=== PATIENT | female | born 1940 | race Caucasian/White ===

== ENCOUNTER → 2017-03-05 | Outpatient (CLI) | payer OTHER ==
--- NOTE | 2017-03-05 12:45 | MAMMOGRAPHY REPORT ---
BILATERAL DIGITAL SCREENING MAMMOGRAM WITH CAD: 03/05/2017 CLINICAL HISTORY: Routine screening. Patient has no complaints. TECHNIQUE: Bilateral CC and MLO views were obtained. Current study was also evaluated with a Compute r Aided Detection (CAD) system. COMPARISON: Comparison is made to exams dated: 03/01/2016 mammogram, 02/27/2015 mammogram, 02/24/2014 m ammogram, 02/22/2013 mammogram, 02/21/2012 mammogram, and 02/19/2011 mammogram - [facility] enter. BREAST COMPOSITION: The tissue of both breasts is extremely dense, which lowers the sensitivity of m ammography. FINDINGS: There are a few benign coarse calcifications in the anterior aspect of the breasts. No ariela picious mass, architectural distortion or cluster of suspicious microcalcifications is seen. IMPRESSION: ACR BI-RADS CATEGORY 1: NEGATIVE There is no mammographic evidence of malignancy. A 1 year screening mammogram is recommended. The pa tient will receive written notification of the results. Approximately 10% of breast cancers are not detected with mammography. A negative mammographic report should not delay biopsy if a clinically suggestive mass is present. Violeta Payne M.D. ay/:03/05/2017 08:59:26 Hadoop Java Developer: Lindsey CARD(Roxann)(Jett)([place]), [facility] letter sent: Normal 1/2 BI-RADS Code: ACR BI-RADS Category 1: Negative
== END | disposition home or self-care (01) ==
LOC: C.MAMM 08:34
PROVIDERS: ATTEND Family Medicine
DX: Z12.31 Encounter for screening mammogram for malignant neoplasm of breast (principal)

== ENCOUNTER → 2017-06-24 | Day surgery (SDC) | payer OTHER ==
[2017-06-24] VITALS (21 sets, daily range): BP systolic 92–157; BP diastolic 37–77; PULSE 72–105; TEMP 36.2–37; O2SAT 89–100; Ht 162.6 cm; Wt 53.5 kg
[~2017-06-24] VITALS: Ht 162.6 cm; Wt 53.5 kg
[~2017-06-24] MED LIST: ASPI81TA28 PO; CHOL1000 PO; ESCI1TAB6 PO; FENTANYL CITRATE INJ 50 MCG/1 ML 2 ML VIAL IV ONE; GLIM1TAB2 PO; HYG/25 PO; LISI40TA PO; METF-384 PO; MIDAZOLAM HCL 5 MG/ML 1 ML VIAL IV ONE; MULT-513 PO; NURSING VERBAL MED ORDER ONE; SIMV40TA2 PO; SODIUM CHLORIDE 0.9% 500ML 500 ML IV ONE
--- NOTE | 2017-06-24 09:24 | History and Physical ---
History & Physical Date of Service Jun 24, 2017. History & Physical CC: Bronchoscopic evaluation because of the hemoptysis longstanding smoking history and right middle lobe collapse. 77y/o female who has been coughing up mucus with streaks of blood. She has been smoking since 20 YO. Smokes 1 PPD. Denines SOB and dsypnea and reports she stays active. She is taking medications as listed./ap 77-year-old white female was accompanied to the office by her sister who is retired from working at the [employer] [place] in [place] has 3 sisters 1 who lives in [place]. The other lives in [place] any other in [place]. Both parents are with the father having of a myocardial infarction in the mother of complications of Alzheimer and pneumonia. Patient has smoked a pack of cigarettes a day since age 20 and continues to smoke. She is also diabetic. She has had a cough the past 2 weeks and has noted blood streaking hemoptysis. She denies pleuritic or atypical chest pain or previous bouts of hemoptysis. She denies recent fevers chills or sweats. She is attentive to her diabetes and checks her glucose 3 times a day. He has not undergone pulmonary function testing or undergone stress testing recently. She is pretty active in the summer and push Mohs an ache her of her lab and but states walking up his heel near the house is problematic for her or carrying laundry up steps. She has been on lisinopril but does not believe this is giving her a cough although she is aware it can. Her was a smoker as well. Her sleeping is poor. She denies snoring. Weight has remained constant. She had history of carpal tunnel syndrome on the left wrist and apparently has not kept up with her in ocular lesions. Primary care physician is Dr. Susana Laughlin and also sees Rebecca Chandler physician human resources office assistant. Chest x-ray on 05/21/2017 shows collapse/atelectasis of the right middle lobe without a discernible mass visible. There is also tenting of the right hemidiaphragm.+ Active Problems 1. Collapse of right lung 2. DM type 2 causing renal disease 3. DM type 2, goal HbA1c < 8% 4. Dyslipidemia, goal LDL below 100 5. HTN, goal below 140/90 Current Meds 1. Aspirin EC Lo-Dose 81 MG TBEC; TAKE 1 TABLET DAILY 2. Chlorthalidone 25 MG Oral Tablet; TAKE 1 TABLET DAILY 3. DiazePAM 5 MG Oral Tablet; TAKE 1/2 TABLET DAILY 4. Escitalopram Oxalate 5 MG Oral Tablet; TAKE 1 TABLET DAILY 5. Glimepiride 1 MG Oral Tablet; TAKE 1 TABLET DAILY 6. Lisinopril 40 MG Oral Tablet; TAKE 1 TABLET DAILY 7. MetFORMIN HCl - 1000 MG Oral Tablet; TAKE 1 TABLET TWICE DAILY 8. Multi-Vitamin TABS; TAKE 1 TABLET DAILY 9. Simvastatin 40 MG Oral Tablet; TAKE 1 TABLET AT BEDTIME Allergies 1. No Known Drug Allergies Vital Signs Blood Pressure: 134 / 82, LUE, Sitting O2 Saturation: 98, RA Height: 5 ft 4 in Weight: 117 lb 8 oz BMI Calculated: 20.17 BSA Calculated: 1.56 Temperature: 97.8 F Heart Rate: 57 Respiration: 16 Constitutional General appearance: No acute distress, well appearing and well nourished. Eyes Conjunctiva and lids: No swelling, erythema or discharge. Pupils and irises: Equal, round and reactive to light. Ears, Nose, Mouth, and Throat External inspection of ears and nose: Normal. Otoscopic examination: Tympanic membranes translucent with normal light reflex. Canals patent without erythema. Oropharynx: Normal with no erythema, edema, exudate or lesions. Pulmonary Respiratory effort: No increased work of breathing or signs of respiratory distress. Auscultation of lungs: Abnormal. ~Distant to P and a with scattered rhonchi right posterior mid axillary region. Cardiovascular Palpation of heart: Normal PMI, no thrills. Auscultation of heart: Normal rate and rhythm, normal S1 and S2, without murmurs. Examination of extremities for edema and/or varicosities: Normal. Abdomen Abdomen: Non-tender, no masses. Liver and spleen: No hepatomegaly or splenomegaly. Lymphatic Palpation of lymph nodes in neck: No lymphadenopathy. Musculoskeletal Gait and station: Normal. Digits and nails: Normal without clubbing or cyanosis. Inspection/palpation of joints, bones, and muscles: Normal. Skin Skin and subcutaneous tissue: Normal without rashes or lesions. Neurologic Cranial nerves: Cranial nerves 2-12 intact. Reflexes: 2+ and symmetric. Sensation: No sensory loss. Psychiatric Orientation to person, place, and time: Normal. Mood and affect: Normal.
--- NOTE | 2017-06-24 09:25 | Procedure Note ---
Pre-Mod Sedation Assessment General Date of Moderate Sedation: Jun 24, 2017. Vital Signs: Vital Signs Past 12 Hours Date Time Temp Pulse Resp B/P (MAP) Pulse Ox O2 Delivery O2 Flow Rate FiO2 06/24/17 08:43 36.6 72 18 114/52 (72) 97 Room Air Review Cardiovascular: regular rate, rhythm, no edema, no gallop, no JVD, no murmur Abdomen: normal bowel sounds, non tender, soft, no organomegaly, no pulsatile mass Lungs: chest non-tender, + rhonchi (minimal at the bases bilaterally) Pre-Sedation Airway Assessment Oral Cavity: Capped Teeth Able to Visualize Vocal Cords: Yes Short Thick Neck: No Hx of Sleep Apnea: No Smoking Status: Current Every Day Smoker Mallampati Classification: Class II ASA Classification: Class III Procedure Planning Contraindications-for Mod Sed: None Yes Notes The planned sedation has been discussed with the patient and consent obtained. I have identified the patient, determined the appropriateness of sedation and have assessed the patient immediately prior to the procedure. All medicine(s) and interventions are by my order.
--- NOTE | 2017-06-24 10:58 | Procedure Note ---
Post-Moderate Sedation Plan General Date of Moderate Sedation Jun 24, 2017. Vital Signs: Vital Signs Past 12 Hours Date Time Temp Pulse Resp B/P (MAP) Pulse Ox O2 Delivery O2 Flow Rate FiO2 06/24/17 09:52 93 Room Air 4.0 06/24/17 09:45 36.6 72 18 114/52 97 Room Air 06/24/17 08:43 36.6 72 18 114/52 (72) 97 Room Air Review - Discharge Plan Post Moderate Sedation Plan: On clinical assessment, the patient appears to have tolerated the conscious sedation without complications. Patient is recovering as anticipated. Patient will continue to be monitored by nursing and may be discharged when conscious sedation discharge criteria are met.
--- NOTE | 2017-06-24 11:00 | Bronchoscopy Procedure Note ---
Bronchoscopy Procedure Note Procedure: Bronchoscopy, conscious sedation, right middle lobe lavage Consent: Obtained through the patient placed into the chart Pre-procedural diagnosis: Hemoptysis Post-procedural diagnosis: Hemoptysis with bronchiectasis of the right middle lobe Start time: 1020 End time: 1040 Total time: 20 minutes Analgesia: 2% liquid lidocaine: Via nebulizer 4% gel lidocaine: Via right naris 2% liquid lidocaine: Via bronchoscopy Sedation: Versed IV: 4 mg Fentanyl IV: 50 g Procedure: [employer] video bronchoscope was used for this procedure and passed down through the right naris Right naris/posterior naris/posterior oropharynx: Anatomically within normal limits Glottis: Anatomically within normal limits Vocal cords: Proper abduction and abduction, anatomically within normal limits Subglottis/trachea/Olya: Anatomically within normal limits Right bronchial tree: Right mainstem bronchus: Anatomically within normal limits Right upper lobe: Anatomically within normal limits Bronchus intermedius: Anatomically within normal limits Right middle lobe: Blood pooling at the orifice to the right middle lobe, after blood removed notable bronchiectasis well visualized portions of the right middle lobe Right lower lobe: Anatomically within normal limits Findings: No significant findings noted Left bronchial tree: Left mainstem bronchus: Anatomically within normal limits Left upper lobe: Anatomically within normal limits Lingula: Anatomically within normal limits Left lower lobe: Anatomically within normal limits Findings: No significant findings noted Bronchial alveolar lavage: Right middle lobe 2 EBL: 2 cc Complications: None Follow-up: ASU
--- NOTE | 2017-06-24 11:06 | Discharge Instructions ---
Discharge Instructions Date of Service Jun 24, 2017. Admission Reason for Admission: Hemoptysis Discharge Discharge Diagnosis / Problem: hemoptysis, atelectasis, right middle lobe bronchiectasis Discharge Goals Goal(s): Diagnostic testing Activity Recommendations Activity Limitations: resume your previous activity . Instructions / Follow-Up Instructions / Follow-Up [facility] pulmonary division Current Hospital Diet Patient's current hospital diet: Discharge Diet Recommended Diet: Regular Diet Procedures Procedures Performed: Bronchoscopy, conscious sedation, bronchial lavage Pending Studies Studies pending at discharge: no Medical Emergencies . Who to Call and When: Medical Emergencies: If at any time you feel your situation is an emergency, please call 911 immediately. . Non-Emergent Contact Non-Emergency issues call your: Clinical Massage Therapist . . "Provider Documentation" section prepared by Abram Villa. . VTE Core Measure Inpt VTE Proph given/why not?: Treatment not indicated
== END | disposition home or self-care (01) ==
LOC: C.ACU 08:14
PROVIDERS: ATTEND Internal Medicine Critical Care Medicine
DX: R04.2 Hemoptysis (principal); J47.9 Bronchiectasis, uncomplicated; I13.0 Hypertensive heart and chronic kidney disease with heart failure and stage 1 through stage 4 chronic kidney disease, or unspecified chronic kidney disease; N18.9 Chronic kidney disease, unspecified; Z79.899 Other long term (current) drug therapy; E78.5 Hyperlipidemia, unspecified; F17.210 Nicotine dependence, cigarettes, uncomplicated

== ENCOUNTER 2017-07-03 22:27 | Inpatient (IN) | payer OTHER ==
[~2017-07-03] VITALS: Ht 160 cm; Wt 56.1 kg
[~2017-07-03 22:27] MED LIST changes: -FENTANYL CITRATE INJ 50 MCG/1 ML 2 ML VIAL IV ONE; -MIDAZOLAM HCL 5 MG/ML 1 ML VIAL IV ONE; -NURSING VERBAL MED ORDER ONE; -SODIUM CHLORIDE 0.9% 500ML 500 ML IV ONE
[2017-07-03] MEDS ORDERED: LOSA1TAB38 PO (23:05)
[2017-07-03] MEDS ORDERED: ASPI1TAB48 PO (23:07)
[2017-07-03 23:40] LABS: BASO % 0.3 %; BASO ABS # 0.04 K/uL (0-0.2); COMPLETE YES; HEMATOCRIT 36.7 % (37-47); IG% 0.3 %; LYMPH % 13.9 %; LYMPH ABS # 1.79 K/uL (1.2-3.4); MEAN CELL VOLUME 93.9 fL (80-100); MEAN CORPUSCULAR HEMOGLOBIN 31.7 pg (25-34); MEAN CORPUSCULAR HGB CONC 33.8 g/dl (32-36); MEAN PLATELET VOLUME 9.1 fL (7.4-10.4); MONO % 6.7 %; NEUT % 75.8 %; PLATELET COUNT 397 K/uL (130-400); RED BLOOD COUNT 3.91 M/uL (4.2-5.4)
[2017-07-03 23:51] LABS: INR 0.9 (0.9-1.1); PROTHROMBIN TIME (PATIENT) 9.5 SECONDS (9.0-12.0)
[2017-07-03 23:59] LABS: ALT/SGPT 21 U/L (12-78); BLOOD UREA NITROGEN 42 mg/dl (7-18); BUN/CREATININE RATIO 26.9 (10-20); CALCIUM 9.3 mg/dl (8.5-10.1); CARBON DIOXIDE 29 mmol/L (21-32); CHLORIDE 99 mmol/L (98-107); CREATININE 1.57 mg/dl (0.60-1.20); GLUCOSE 121 mg/dl (70-99); POTASSIUM 3.9 mmol/L (3.5-5.1); SODIUM 135 mmol/L (136-145)
[2017-07-04 00:04] LABS: ALB/GLOB RATIO 0.8 (0.9-2); ALKALINE PHOSPHATASE 114 U/L (45-117); AST/SGOT 23 U/L (15-37)
[2017-07-04] MEDS ORDERED: OPTIRAY 320 IV PRN (00:30)
[2017-07-04 01:26] LABS: URINE APPEARANCE CLEAR (CLEAR); URINE BILIRUBIN NEG (NEG); URINE COLOR YELLOW; URINE NITRITE NEG (NEG); URINE SPECIFIC GRAVITY 1.019 (1.000-1.030); UROBILINOGEN NEG (NEG); ZZUR CULT IF INDIC CLEAN CATCH NO
[2017-07-04 01:57] LABS: MANUAL MICROSCOPIC REQUIRED? NO; REVIEW REQ? NO
[2017-07-04] MEDS ORDERED: DOXYCYCLINE HYCLATE 100 MG CAP PO STA (02:23)
--- NOTE | 2017-07-04 02:34 | EMERGENCY ROOM VISIT NOTE ---
History Report prepared by Suleiman: Phyllis Macias Under the Supervision of: Dr. Becky Morgan D.O. First contact with patient: 22:53 Chief Complaint: GI ASSESSMENT Stated Complaint: SPITTING UP BLOOD Nursing Triage Summary: Spitting up blood with coughing. History of Present Illness The patient is a 77 year old female who presents to the Emergency Room with complaints of persistent hemoptysis starting 3 weeks ago. She has been coughing up little streaks of blood in her sputum. Tonight around 2129 she coughed up a large clot which concerned her. She has coughed up blood 3 more times since. The patient had a bronchoscopy last week which was mostly normal. She had a spot of blood which was cleaned. She had washings which were negative for cancer. She has an appointment in 5 days with cardiothoracic surgery where they look and will operate if necessary. She does not taste any blood. She notes that she has had foot and ankle swelling for 2 weeks which is worse at night. She has never had swelling in her lower extremities before. She denies any leg injury. She denies any SOB, fever, chills, nausea, vomiting, epistaxis, hematuria, hematochezia, or melena. She is on baby aspirin every other day. She is not on any blood thinners. She has a history of arthritis, diabetes, hypertension, and high cholesterol. She denies any history of heart problems or platelet problems. She is not on any steroids or other immunosuppressive agents. Source of History: patient Onset: 3 weeks ago Position: other (global) Quality: other (hemoptysis) Timing: other (persistent) Associated Symptoms: No fevers, No chills, No SOB, No nausea, No vomiting, No melena, No hematochezia, No urinary symptoms Note: Pt reports lower extremity swelling. Review of Systems See HPI for pertinent positives & negatives. A total of 10 systems reviewed and were otherwise negative. Past Medical & Surgical Medical Problems: (1) Arthritis (2) Diabetes (3) Hemoptysis (4) High cholesterol (5) Hypertension Family History No pertinent family history stated. Social History Smoking Status: Never Smoker Marital Status: Occupation Status: retired Current/Historical Medications Scheduled Aspirin (Aspirin Low Dose), 81 MG PO DAILY Chlorthalidone (Hygroton), 25 MG PO QAM Cholecalciferol (Vitamin D3), 1 TAB PO DAILY Escitalopram Oxalate (Lexapro), 5 MG PO DAILY Glimepiride (Glimepiride), 0.5 MG PO DAILY Losartan Potassium (Cozaar), 100 MG PO DAILY Metformin Hcl (Glucophage), 1,000 MG PO BID Multivitamins/Minerals (Mvi With Minerals), 1 TAB PO DAILY Simvastatin (Zocor), 40 MG PO QPM Allergies Coded Allergies: No Known Allergies (Unverified , 07/03/17) Physical Exam Vital Signs Date Time Temp Pulse Resp B/P (MAP) Pulse Ox O2 Delivery O2 Flow Rate FiO2 07/04/17 00:44 82 18 163/71 94 Room Air 07/04/17 00:23 75 16 142/76 07/03/17 23:50 75 07/03/17 22:33 36.7 94 18 140/73 95 Room Air Physical Exam GENERAL: alert, well appearing, well nourished, no distress, non-toxic EYE EXAM: normal conjunctiva, PERRL and EOM's grossly intact OROPHARYNX: no exudate, no erythema, lips, buccal mucosa, and tongue normal and mucous membranes are moist NECK: supple, no nuchal rigidity, no adenopathy, non-tender LUNGS: Diminished breath sounds. Normal chest wall mechanics HEART: no murmurs, S1 normal and S2 normal ABDOMEN: abdomen soft, non-tender, normo-active bowel sounds, no masses, no rebound or guarding. BACK: Back is symmetrical on inspection and there is no deformity, no midline tenderness, no CVA tenderness. SKIN: no rashes and no bruising UPPER EXTREMITIES: upper extremities are grossly normal. LOWER EXTREMITIES: No pitting edema. NEURO EXAM: Normal sensorium, cranial nerves II-XII grossly intact, normal speech, no gross weakness of arms, no gross weakness of legs. Medical Decision & Procedures ER Provider Diagnostic Interpretation: Xray results have been interpreted by me. Radiology results have been interpreted by the [facility] radiologist and reviewed by me. Chest X-ray: No cardiomegaly. Hazy opacification of the right middle lobe. Slightly increased interstitial markings at the left base. No melly pulmonary edema. No wide mediastinum. CTA Chest: Comparison is made to prior CT chest on 06/10/2017. No pulmonary embolus identified. Stable hypodense mass in the right hilum with mild narrowing of the pulmonary arterial branches as they traverse the mass. No occlusion. The mass is also again causing obstruction of the airways with complete collapse of the right middle lobe. Superimposed infection cannot be excluded. Moderate centrilobular emphysematous changes again noted. Nonspecific tiny nodules, most prominent in the upper lobes. Metastatic nodules cannot be excluded. Nonspecific mildly prominent mediastinal lymph nodes. Stable small left hepatic cyst. Stable nonspecific thickening of the adrenal glands. Laboratory Results Test 07/03/17 23:22 07/04/17 01:10 Prothrombin Time 9.5 SECONDS (9.0-12.0) Prothromb Time International Ratio 0.9 (0.9-1.1) Est Creatinine Clear Calc Drug Dose 25.6 ml/min Total Bilirubin 0.2 mg/dl (0.2-1) Aspartate Amino Transf (AST/SGOT) 23 U/L (15-37) Alanine Aminotransferase (ALT/SGPT) 21 U/L (12-78) Alkaline Phosphatase 114 U/L (45-117) Troponin I < 0.015 ng/ml (0-0.045) Pro-B-Type Natriuretic Peptide 182 pg/ml (0-900) Total Protein 7.3 gm/dl (6.4-8.2) Albumin 3.3 gm/dl (3.4-5.0) Globulin 4.0 gm/dl (2.5-4.0) Albumin/Globulin Ratio 0.8 (0.9-2) Urine Color YELLOW Urine Appearance CLEAR (CLEAR) Urine pH 7.0 (4.5-7.5) Urine Specific [place] 1.019 (1.000-1.030) Urine Protein NEG (NEG) Urine Glucose (UA) NEG (NEG) Urine Ketones NEG (NEG) Urine Occult Blood NEG (NEG) Urine Nitrite NEG (NEG) Urine Bilirubin NEG (NEG) Urine Urobilinogen NEG (NEG) Urine Leukocyte Esterase NEG (NEG) Laboratory results per my review. Medications Administered Medications (Trade) Dose Ordered Sig/Bushra Route Start Time Stop Time Status Last Admin Dose Admin Doxycycline Hyclate (Vibramycin Cap) 100 mg NOW STAT PO 07/04/17 02:23 07/04/17 02:35 DC 07/04/17 02:57 100 MG ECG Indication: other Rate (beats per minute): 78 Rhythm: sinus rhythm Findings: no acute ischemic change, no ectopy, other (normal axis, normal intervals) ED Course 2259: The patient was evaluated in room B4B. A complete history and physical exam was performed. 0018: I reevaluated the patient. She had another episode of hemoptysis which was less than before. I updated her on the results. 0139: Upon reevaluation, the patient is stable. I discussed the findings and the treatment plan with the patient. She expresses agreement and understanding. She will be evaluated for further management. 0155: I reviewed the patient's case with Taya Villagomez hospitalist. He will evaluate the patient for further management. Medical Decision Differential diagnosis: PE, post procedure complication, pneumonia, foreign body , trauma. Patient well-appearing here despite worsening hemoptysis. Vital signs stable. Patient with mild leukocytosis, and new acute kidney injury noted. Unclear etiology of renal dysfunction. Leukocytosis unclear if related to evolving infection or stress reaction recent procedure. Chest x-ray again confirms right middle lobe atelectasis and masslike lesions noted. No other evidence of PE, pneumonia, tamponade, or additional vascular pathology. Patient here for continued monitoring of H&H and leukocytosis as well as continued productive cough with hemoptysis. Patient with a total 5 episodes between home and the emergency room of melly hemoptysis which is new compared to her prior "streaking " the hemoptysis that she had started an outpatient evaluation for. Case discussed with hospitalist for additional evaluation and pulmonary consult. Medication Reconcilliation Current Medication List: was personally reviewed by me Blood Pressure Screening Patient's blood pressure: Elevated blood pressure Blood pressure disposition: Elevated BP felt to be situational Consults Time Called: 144 Consulting Physician: Taya Villagomez hospitalist Returned Call: [phone] I reviewed the patient's case with him. He will evaluate the patient for further management. Impression Primary Impression: Hemoptysis Additional Impressions: Lung mass SASHA (acute kidney injury) Scribe Attestation The scribe's documentation has been prepared under my direction and personally reviewed by me in its entirety. I confirm that the note above accurately reflects all work, treatment, procedures, and medical decision making performed by me. Departure Information Dispostion Being Evaluated By Hospitalist Referrals Susana Laughlin D.O. (PCP) Patient Instructions My [facility] Problem Qualifiers
[2017-07-04] MEDS ORDERED: GLUCAGON FOR INJ 1 MG VIAL SQ PRN (03:00)
[2017-07-04] MEDS ORDERED: DEXTROSE 50% 50 ML SYR IV PRN (03:00)
[2017-07-04] MEDS ORDERED: GLUCOSE 10 TABS/TUBE PO PRN (03:00)
[2017-07-04] MEDS ORDERED: GLUCOSE 40% GEL 15 GM TUBE PO PRN (03:00)
--- NOTE | 2017-07-04 03:42 | History and Physical ---
History & Physical Date & Time of Service: Jul 04, 2017 at 02:56 Chief Complaint: Spitting Up Blood Primary Care Physician: Susana Laughlin D.O. History of Present Illness Source: patient, clinic records, hospital records This is a 77 year old female with a PMH of ongoing tobacco use, HTN, DM2, HLD - presents with hemoptysis. She has had this for about one month and has seen pulmonology for this problem. She had a bronchoscopy performed on 06/05 for washing and lavage. Afterwards, patient continued to have hemoptysis so she was scheduled to have an appointment with Dr. Covington, cardiothoracic surgery, on 07/08. She states that her hemoptysis worsened on the evening of 07/03 - she started coughing up clots. She presented to the ER; hemodynamically stable and vitals/labs looked okay, but cough/hemoptysis persisted in the ER. Chest CT was performed showing R middle lobe atelectasis, possible mass and possible infectious etiology. Past Medical/Surgical History Medical Problems: (1) Arthritis Status: Chronic (2) Diabetes Status: Chronic (3) High cholesterol Status: Chronic (4) Hypertension Status: Chronic Social History Smoking Status: Never Smoker Marital Status: Occupational Status: retired Multi-Drug Resistant Organisms History of MDRO: No Allergies Coded Allergies: No Known Allergies (Unverified , 07/03/17) Home Medications Scheduled Aspirin (Aspirin Low Dose), 81 MG PO DAILY Chlorthalidone (Hygroton), 25 MG PO QAM Cholecalciferol (Vitamin D3), 1 TAB PO DAILY Escitalopram Oxalate (Lexapro), 5 MG PO DAILY Glimepiride (Glimepiride), 0.5 MG PO DAILY Losartan Potassium (Cozaar), 100 MG PO DAILY Metformin Hcl (Glucophage), 1,000 MG PO BID Multivitamins/Minerals (Mvi With Minerals), 1 TAB PO DAILY Simvastatin (Zocor), 40 MG PO QPM Review of Systems Constitutional: No fever, No chills, No weakness Eyes: No worsening of vision ENT: No hearing loss Respiratory: + cough, + sputum, + hemoptysis, No wheezing, No shortness of breath, No dyspnea on exertion, No dyspnea at rest Cardiovascular: No chest pain, No edema, No palpitations Abdomen: No pain, No nausea, No vomiting, No diarrhea, No constipation, No GI bleeding Musculoskeletal: + joint pain (chronic arthritis), No muscle pain Genitourinary - Female: No dysuria, No urinary frequency, No urinary urgency, No urinary incontinence, No urinary retention, No hematuria Neurologic: No memory loss, No paralysis, No numbness/tingling Psychiatric: No depression symptoms, No anxiety, No insomnia Endocrine: No fatigue Hematologic / Lymphatic: + abnormal bleeding/bruising Integumentary: No rash Allergic / Immunologic: No environmental allergies, No seasonal allergies Physical Exam Vital Signs Date Time Temp Pulse Resp B/P (MAP) Pulse Ox O2 Delivery O2 Flow Rate FiO2 07/04/17 00:44 82 18 163/71 94 Room Air 07/04/17 00:23 75 16 142/76 07/03/17 23:50 75 07/03/17 22:33 36.7 94 18 140/73 95 Room Air General Appearance: no apparent distress Head: normocephalic, atraumatic Eyes: normal inspection ENT: hearing grossly normal Neck: supple Respiratory/Chest: no respiratory distress, no accessory muscle use, + wheezing (mild wheezing) Cardiovascular: regular rate, rhythm, no edema, no gallop, no JVD, no murmur, normal peripheral pulses Abdomen/GI: normal bowel sounds, non tender, soft Extremities/Musculoskelatal: normal inspection, no calf tenderness, normal capillary refill, no pedal edema, normal range of motion, + pertinent finding (+ arthritic deformities of fingers) Neurologic/Psych: no motor/sensory deficits, alert, normal mood/affect Skin: normal color Lymphatic: no adenopathy Diagnostics Laboratory Results Results Past 24 Hours Test 07/03/17 23:22 07/04/17 01:10 Range/Units White Blood Count 12.90 4.8-10.8 K/uL Red Blood Count 3.91 4.2-5.4 M/uL Hemoglobin 12.4 12.0-16.0 g/dL Hematocrit 36.7 37-47 % Mean Corpuscular Volume 93.9 80-100 fL Mean Corpuscular Hemoglobin 31.7 25-34 pg Mean Corpuscular Hemoglobin Concent 33.8 32-36 g/dl Platelet Count 397 130-400 K/uL Mean Platelet Volume 9.1 7.4-10.4 fL Neutrophils (%) (Auto) 75.8 % Lymphocytes (%) (Auto) 13.9 % Monocytes (%) (Auto) 6.7 % Eosinophils (%) (Auto) 3.0 % Basophils (%) (Auto) 0.3 % Neutrophils # (Auto) 9.78 1.4-6.5 K/uL Lymphocytes # (Auto) 1.79 1.2-3.4 K/uL Monocytes # (Auto) 0.86 0.11-0.59 K/uL Eosinophils # (Auto) 0.39 0-0.5 K/uL Basophils # (Auto) 0.04 0-0.2 K/uL RDW Standard Deviation 45.4 36.4-46.3 fL RDW Coefficient of Variation 13.3 11.5-14.5 % Immature Granulocyte % (Auto) 0.3 % Immature Granulocyte # (Auto) 0.04 0.00-0.02 K/uL Prothrombin Time 9.5 9.0-12.0 SECONDS Prothromb Time International Ratio 0.9 0.9-1.1 Sodium Level 135 136-145 mmol/L Potassium Level 3.9 3.5-5.1 mmol/L Chloride Level 99 98-107 mmol/L Carbon Dioxide Level 29 21-32 mmol/L Anion Gap 7.0 3-11 mmol/L Blood Urea Nitrogen 42 7-18 mg/dl Creatinine 1.57 0.60-1.20 mg/dl Est Creatinine Clear Calc Drug Dose 25.6 ml/min Estimated GFR () 37.0 Estimated GFR (Non- 31.9 BUN/Creatinine Ratio 26.9 10-20 Random Glucose 121 70-99 mg/dl Calcium Level 9.3 8.5-10.1 mg/dl Total Bilirubin 0.2 0.2-1 mg/dl Aspartate Amino Transf (AST/SGOT) 23 15-37 U/L Alanine Aminotransferase (ALT/SGPT) 21 12-78 U/L Alkaline Phosphatase 114 45-117 U/L Troponin I < 0.015 0-0.045 ng/ml Pro-B-Type Natriuretic Peptide 182 0-900 pg/ml Total Protein 7.3 6.4-8.2 gm/dl Albumin 3.3 3.4-5.0 gm/dl Globulin 4.0 2.5-4.0 gm/dl Albumin/Globulin Ratio 0.8 0.9-2 Urine Color YELLOW Urine Appearance CLEAR CLEAR Urine pH 7.0 4.5-7.5 Urine Specific [facility] 1.019 1.000-1.030 Urine Protein NEG NEG Urine Glucose (UA) NEG NEG Urine Ketones NEG NEG Urine Occult Blood NEG NEG Urine Nitrite NEG NEG Urine Bilirubin NEG NEG Urine Urobilinogen NEG NEG Urine Leukocyte Esterase NEG NEG Diagnostic Radiology CTA = stable hypodense mass in the R hilulm EKG Normal sinus rhythm Rightward axis Impression Assessment and Plan This is a 77 year old female with a PMH of ongoing tobacco use, HTN, DM2, HLD - presents with hemoptysis. Hemoptysis in the setting of mass in the R hilum and ongoing tobacco abuse patient has seen pulmonology for this in the past (06/05) had a bronchial lavage done plan was for patient to see cardiothoracic surgery next week for a plan for possible biopsy of mass will consult pulmonology and CT surgery trend H/H - currently Hgb stable, hemodynamically stable will give IVFs monitor in tele will start doxycycline, WBC elevated, unsure if infectious etiology? hold aspirin counseled on smoking cessation, patient has cut down from 1PPD to about 17 cigarettes a day; currently refusing nicotine patch Acute Kidney Injury possibly secondary to recent change from Lisinopril to Losartan had IV contrast with CT will give IVFs monitor creatinine, and avoid nephrotoxic agents when able HTN due to kidney injury, will hold Cozaar and Chlorthalidone for now give IVFs monitor BP DM2 hold metformin and glipizide check BSGs ACHS add insulin sliding scale if elevated DVT ppx SCDs FULL CODE VTE Prophylaxis VTE Risk Assessment Done? Y/N: Yes Risk Level: Moderate
[2017-07-04] MEDS ORDERED: SODIUM CHLORIDE 0.9% 1000ML 1,000 ML IV SCH (04:00)
[2017-07-04 04:13] VITALS: BP 159/62; PULSE 78; TEMP 36.7; O2SAT 92; Ht 160 cm; Wt 56.1 kg
--- NOTE | 2017-07-04 06:47 | DIAGNOSTIC IMAGING REPORT ---
CHEST 2 VIEWS ROUTINE CLINICAL HISTORY: hemoptysis dyspnea COMPARISON STUDY: 07/04/[address] dated 06/18/2017 FINDINGS: Unchanging complete atelectasis right middle lobe. Lungs otherwise appear clear. There is a component of emphysematous change. A right hilar mass and/or fullness of the right hilum is again noted. IMPRESSION: Complete atelectasis right middle lobe. Unchanging poorly defined right hilar mass. Lungs otherwise are clear. The above report was generated using voice recognition software. It may contain grammatical, syntax or spelling errors. Electronically signed by: Daniel Higgins M.D. 07/04/2017 6:46 AM Dictated Date/Time: 07/04/2017 6:45 AM
[2017-07-04 07:00] LABS: BASO % 0.3 %; BASO ABS # 0.03 K/uL (0-0.2); COMPLETE YES; HEMATOCRIT 35.2 % (37-47); IG% 0.2 %; LYMPH % 19.6 %; MEAN CELL VOLUME 93.4 fL (80-100); MEAN CORPUSCULAR HEMOGLOBIN 31.3 pg (25-34); MEAN CORPUSCULAR HGB CONC 33.5 g/dl (32-36); MEAN PLATELET VOLUME 8.9 fL (7.4-10.4); MONO % 7.5 %; NEUT % 69.4 %; PLATELET COUNT 352 K/uL (130-400); RED BLOOD COUNT 3.77 M/uL (4.2-5.4); WHITE BLOOD COUNT 8.69 K/uL (4.8-10.8)
[2017-07-04 07:23] LABS: BUN/CREATININE RATIO 32.4 (10-20); CALCIUM 8.9 mg/dl (8.5-10.1); CREATININE 1.06 mg/dl (0.60-1.20)
[2017-07-04 07:37] VITALS: BP 119/67; PULSE 74; TEMP 36.7; O2SAT 93
--- NOTE | 2017-07-04 07:55 | DIAGNOSTIC IMAGING REPORT ---
CT ANGIOGRAM OF THE CHEST CLINICAL HISTORY: Hemoptysis. COMPARISON STUDY: Chest radiograph dated 07/04/2017. Chest CT dated 06/10/2017. PET/CT dated 06/18/2017. TECHNIQUE: Following the IV administration of 84 cc of Optiray 320, CT angiogram of the chest was performed from the upper abdomen to the thoracic inlet utilizing the pulmonary embolus protocol. Images are reviewed in the axial, sagittal, and coronal planes. 3-D MIPS images are created and assessed. IV contrast was administered without complication. A dose lowering technique was utilized adhering to the principles of ALARA. CT DOSE: 192.14 mGy.cm FINDINGS: Thyroid: Imaged portions of the thyroid gland are normal in size and attenuation. Thoracic aorta: There is atherosclerotic calcification of the thoracic aorta, which is normal in caliber and demonstrates standard 3-vessel arch anatomy. No dissection is seen. Pulmonary vasculature: The main pulmonary arteries are dilated suggesting pulmonary artery hypertension. There are no filling defects identified in main, lobar, or segmental pulmonary branches to suggest pulmonary embolus. There is narrowing of the right middle lobe pulmonary artery branches, likely due to central mass lesion. Heart: The heart is normal in size and configuration, and without pericardial effusion. Lungs and pleural spaces: Emphysema is noted. Again seen is complete atelectasis of the right middle lobe, likely related to obstructing central lesion. The lesion itself was not well visualized. There are numerous tiny foci of groundglass nodularity seen throughout both lungs, greatest in the left upper lobe. No pleural effusion is identified. Mild diffuse peribronchial thickening is observed. The trachea is patent. Mediastinum: No pathologically enlarged mediastinal lymph nodes are identified. Robyn: The right hilum is obscured. No left hilar adenopathy is identified. Axillae: There is no axillary lymphadenopathy. Upper abdomen: The liver is heterogeneous. A 1.7 cm cyst is noted in the left hepatic lobe. There is a tiny hiatal hernia. A cortical calcification is noted in the upper lobe of the partially imaged left kidney. There is nodularity of both adrenal glands, similar to previous. Skeletal structures: The skeletal structures are osteopenic. Degenerative change and mild hyperkyphosis are noted in the thoracic spine. No lytic or blastic bony lesions are seen. IMPRESSION: 1. There is no evidence of pulmonary embolus in the main, lobar, or segmental pulmonary arteries. 2. Emphysema. 3. Again seen is complete atelectasis of the right middle lobe, likely related to an obstructing central lesion as suggested by PET. The lesion itself was not well visualized. 4. There are numerous foci of patchy ground glass nodularity seen throughout both lungs, greatest in the left upper lobe. This likely represents an infectious/inflammatory pneumonitis. No pleural effusion is seen. Clinical correlation will be required. Attention at follow-up is recommended. 5. Mild diffuse peribronchial thickening is identified and likely represents reactive airway disease. 6. No pathologically enlarged mediastinal lymph nodes are identified. 7. Additional findings as above. Electronically signed by: Tylor Galvan M.D. 07/04/2017 7:54 AM Dictated Date/Time: 07/04/2017 7:03 AM
[2017-07-04 08:00] VITALS: O2SAT 92
[2017-07-04] MEDS ORDERED: ESCITALOPRAM OXALATE 10 MG TAB PO SCH ×2 (09:00→21:00)
--- NOTE | 2017-07-04 09:42 | Medical Consult ---
Consultation Note Date of Service Jul 04, 2017. Consultation Note Consult Dictated #[id number]
--- NOTE | 2017-07-04 10:08 | CONSULTATION REPORT ---
DATE OF CONSULTATION: 07/04/2017 CHIEF COMPLAINT: Hemoptysis. HISTORY OF PRESENT ILLNESS: This is a very pleasant 77-year-old female who we are asked to see due to hemoptysis. It should be noted that the patient on June 24 underwent a fiberoptic bronchoscopy by Dr. Villa due to previously noted hemoptysis. It should be noted that during this procedure, the patient was noted to have some dried blood in the right middle lobe with other segments of the right lung as well as left lung being without anatomic abnormalities. Due to the nature of the blood that was noted on bronchoscopy, biopsies were not able to be performed. The patient was ultimately scheduled to see Dr. Covington in the office on July 08, which is this coming Friday. The patient, however, began to experience further hemoptysis and therefore presented to the Emergency Department. In the Emergency Department, the patient did have a CT scan of the chest that was negative for pulmonary emboli. The patient was not noted to have any pathologically enlarged mediastinal lymph nodes and the patient was noted to have a near complete atelectasis of the right middle lobe. It is noteworthy to mention that the patient did have a PET scan performed as an outpatient, where there was concern for an obstructive lesion. During this admission, the patient was noted to have a hemoglobin and hematocrit of 11.8 and 35.2. White blood cell count and platelet count were normal. Coagulation studies were noted to be within normal range. Chemistry profile showed sodium was 134, potassium and creatinine were noted to be normal. I visited with the patient at bedside and questioned her on a full review of systems. She has not had any recent falls, head injuries, visual changes, tinnitus or sore throat. She denies any neck pain, chest pain, lightheadedness, dizziness or syncope. She says she is not short of breath and denies any fever, shakes, or chills. When I questioned her about her hemoptysis, she says that last night she coughed up approximately about a teaspoon size blood clot and then just continued to have blood tinged sputum. Her most recent episode of any blood in her sputum was noted to be approximately 03:00 a.m. on July 04 and she has not had any since admission. She denies any nausea, vomiting, diarrhea, abdominal pain, bright red blood per rectum or melena. She denies any dysuria, history of stroke, seizure, migraine headache, anxiety, depression, DVT, or PE. At the time of my exam, she is resting comfortably in bed without complaints. PAST MEDICAL HISTORY: Includes, 1. Diabetes. 2. Hypercholesterolemia. 3. Hypertension. PAST SURGICAL HISTORY: Includes bronchoscopy. 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 FAMILY HISTORY: She does not report any family history of lung cancer. ALLERGIES: None. OUTPATIENT MEDICATION REGIMEN: Includes the followin. Aspirin 81 mg daily. 2. Hygroton 25 mg daily. 3. Vitamin D3 at 1000 units daily. 4. Lexapro 5 mg daily. 5. Glimepiride 0.5 mg daily. 6. Cozaar 100 mg daily. 7. Glucophage 1000 mg twice daily. 8. Multivitamin daily. 9. Zocor 40 mg daily. REVIEW OF SYSTEMS: As noted above. PHYSICAL EXAMINATION: VITAL SIGNS: The patient is afebrile with a temperature of 36.7, pulse 74 and regular, respirations are 20 and unlabored, blood pressure 119/67, and pulse ox 93% on room air. SKIN: Warm with good turgor. GENERAL: She is alert. She is oriented x3. She is in no distress. HEENT: Head is atraumatic and normocephalic. Eyes: Pupils equal, round and reactive to light and accommodation. Extraocular motions are intact. Ears: Auditory acuity is grossly intact. Nose: Nasal patency was intact. Sinuses are nontender. Mouth is moist without exudates. NECK: Supple. There is no JVD. CARDIOVASCULAR: Regular rate and rhythm. LUNGS: Clear to auscultation. There are no rales, rhonchi or wheezing. ABDOMEN: Soft and nontender. EXTREMITIES: Revealed no cyanosis, clubbing or edema. NEUROLOGIC: Revealed cranial nerves II through XII are grossly intact. No focal deficits are noted. DIAGNOSTIC DATA: As noted above. IMPRESSION: A 77-year-old female with hemoptysis. PLAN: The patient has been admitted by the medical service. Her aspirin has been placed on hold and she is not receiving any chemical means of DVT prophylaxis, which I agree with due to her reported hemoptysis. Due to her hemoptysis, PET scan and CT scan findings, she was scheduled to see Dr. Covington. I have discussed over the phone this patient's case with Dr. Covington as he is out of town and he notes that he will return on July 06 and evaluate the patient at that time for possible interventions, which include but are not limited to further bronchoscopy or perhaps even video-assisted thoracoscopy with pulmonary resection; however, this will be dependent upon his review of the case and the patient's clinical status. I have discussed this with patient. It is noteworthy to mention that the patient was seen by interventional fuel agent, Dr. Abram Villa, who is also out of town at this time. I did discuss with the primary service that the patient should develop further worsening hemoptysis, she should notify us and further recommendations will follow. I did discuss with the primary service that Dr. Covington is out of town and I have recommended that they do discuss the case with the on-call pulmonary and they have agreed to do so.
--- NOTE | 2017-07-04 11:06 | Pulmonary Consultation ---
History General Date of Service: Jul 04, 2017. Stated Complaint: Hemoptysis HPI The patient is a 77 year old female who presents to [facility] with complaints of Hemoptysis. The patient's primary care provider is Susana Laughlin D.O.. Mrs. Nathan is a 77-year-old female who presents with history of dyslipidemia and tobacco use disorder who presented with several episodes of hemoptysis yesterday afternoon. She says that the episodes were described as a few streaks of blood with coughing. Later she had episodes of several clots of blood about the size of a jair. She denies any fevers, chills, chest pain, shortness of breath, dyspnea on exertion. She denies any weight loss, night sweats. She denies any sick contacts or recent travel. She still is an active smoker of one pack of cigarettes per day. She came to the hospital for further evaluation. She is currently being followed by the [facility] pulmonary office for right middle lobe atelectasis likely secondary to right middle lobe mass. She initially presented on 06/05/2017 to the pulmonary office with complaints of 2 week history of cough with hemoptysis. CT chest done on 2016 which showed complete atelectasis of RML. She had a PET CT scan done on 06/18/2017 which showed a 3.7 x 3.3 cm FDG avid focus with central aspect of the right middle lobe. There is also thickening of the left adrenal gland with mild FDG uptake.She had a bronchoscopy performed by Dr. Villa on 2016. Bronchoscopy at that time was nondiagnostic. Residual blood was seen in the right middle lobe and washings were taken. She had a PFT performed in office which showed an FEV1/FEC ratio of about 64% with an FEV1 of 1.2 L, 67% predicted. She had a significant bronchodilator response. According to Dr. Cloud's note she was given a consult to thoracic surgery with Dr. Fazal Covington on Sunday, July 08. The plan was for no further intervention until patient was in a controlled setting, most likely in the OR with her airway protected before any other procedures such as biopsy with rigid bronchoscopy and EBUS were performed. Vital signs since admission to a MAXIMUM TEMPERATURE of 36.7, blood pressure 119 /67 to 163/71, pulse 74-82, respiratory rate 16-20, pulse oximetry 90-96% on room air. Laboratory data significant for sodium of 135, BUN of 42, creatinine of 1.57. Hemoglobin with blood cell count 12.9, E Rohit 12.4, platelet count 39.7. Coags within normal limits. Chest x-ray showed complete atelectasis of right middle lobe. CT chest is moist this morning was also consistent with right middle lobe atelectasis. There is also some areas of groundglass opacities. At the time of my evaluation, patient states that she's feeling well. She denies any other further episodes of hemoptysis since arriving to the ER. She denies any shortness of breath or chest pain. She is saturating well on room air and is requesting that she be discharged home today. Review of Systems Constitutional: reports: as stated in HPI Eyes: reports: as stated in HPI ENT: reports: as stated in HPI Cardiovascular: reports: as stated in HPI Respiratory: reports: as stated in HPI Gastrointestinal: reports: as stated in HPI Genitourinary - Female: reports: as stated in HPI Musculoskeletal: reports: as stated in HPI, joint pain, joint swelling Integumentary: reports: as stated in HPI Neurologic: reports: as stated in HPI Psychiatric: reports: as stated in HPI Endocrine: as stated in HPI Hematologic / Lymphatic: as stated in HPI Allergic / Immunologic: as stated in HPI All Other Symptoms All Other Systems: Reviewed and Negative Past Medical History Past Surgical History: Cataract surgery Bronchoscopy Family History Both parents are . Father had myocardial infarction. Mother had complications of Alzheimer's and pneumonia. Social History [id number] history of smoking, current tobacco use. She denies any alcohol or illicit drug use. Hx Tobacco Use In Past Year?: Yes (1 ppd) Smoking Status: Current Some Day Smoker Marital status: Occupational Status: retired History of MDRO History of MDRO: No Allergies Coded Allergies: No Known Allergies (Unverified , 07/03/17) Current Medications Reported Home Medications Medications Dose Route/Sig Max Daily Dose Days Date Category Aspirin Low Dose (Aspirin) 81 Mg Tab 81 Mg PO DAILY 07/03/17 Reported Cozaar (Losartan Potassium) 100 Mg Tab 100 Mg PO DAILY 07/03/17 Reported Mvi With Minerals (Multivitamins/Minerals) Tab 1 Tab PO DAILY 06/24/17 Reported Vitamin D3 (Cholecalciferol) 1,000 Unit Tab 1 Tab PO DAILY 30 06/24/17 Reported Lexapro (Escitalopram Oxalate) 5 Mg Tab 5 Mg PO DAILY 06/24/17 Reported Zocor (Simvastatin) 40 Mg Tab 40 Mg PO QPM 06/24/17 Reported Hygroton (Chlorthalidone) 25 Mg Tab 25 Mg PO QAM 06/24/17 Reported Glimepiride 1 Mg Tab 0.5 Mg PO DAILY 30 06/24/17 Reported Glucophage (Metformin Hcl) 1,000 Mg Tab 1,000 Mg PO BID 06/24/17 Reported Physical Physical Exam Vital Signs: Date Time Temp Pulse Resp B/P (MAP) Pulse Ox O2 Delivery O2 Flow Rate FiO2 07/04/17 08:00 92 Room Air 07/04/17 07:37 36.7 74 20 119/67 (84) 93 Room Air 07/04/17 04:13 36.7 78 18 159/62 92 Room Air 07/04/17 02:40 76 16 147/73 96 Room Air 07/04/17 00:44 82 18 163/71 94 Room Air 07/04/17 00:23 75 16 142/76 07/03/17 23:50 75 07/03/17 22:33 36.7 94 18 140/73 95 Room Air General Appearance: WELL-APPEARING, WD/WN, NO APPARENT DISTRESS Head: NORMOCEPHALIC, ATRAUMATIC Eyes: PERRLA, NO DISCHARGE, EOMI ENT: NORMAL MOUTH EXAM, NORMAL THROAT EXAM Neck: NORMAL RANGE OF MOTION, NO TENDERNESS, TRACHEA MIDLINE, NO STRIDOR, SUPPLE Respiratory: wheezing (Right middle lobe) Cardiovasular: REGULAR RATE/RHYTHM, NORMAL S1S2, NO M/G/R Abdomen: NON TENDER, NORMAL BOWEL SOUNDS, NO REBOUND Back: NORMAL INSPECTION, NO MIDLINE TENDERNESS, NO CVA TENDERNESS Upper Extremities: deformity, other (DIP, PIP joints swelling) Lower Extremities: NO EDEMA Neuro: ALERT, ORIENTED x 3, NORMAL MOTOR EXAM, NORMAL CEREBELLAR EXAM, NORMAL MEMORY Psychiatric: NORMAL AFFECT, NO SUICIDAL IDEATION, CONTRACTS FOR SAFETY Diagnostics Labs Results Past 24 Hours Test 07/03/17 23:22 07/04/17 01:10 07/04/17 06:22 11/24/17 06:48 Range/Units White Blood Count 12.90 8.69 4.8-10.8 K/uL Red Blood Count 3.91 3.77 4.2-5.4 M/uL Hemoglobin 12.4 11.8 12.0-16.0 g/dL Hematocrit 36.7 35.2 37-47 % Mean Corpuscular Volume 93.9 93.4 80-100 fL Mean Corpuscular Hemoglobin 31.7 31.3 25-34 pg Mean Corpuscular Hemoglobin Concent 33.8 33.5 32-36 g/dl Platelet Count 397 352 130-400 K/uL Mean Platelet Volume 9.1 8.9 7.4-10.4 fL Neutrophils (%) (Auto) 75.8 69.4 % Lymphocytes (%) (Auto) 13.9 19.6 % Monocytes (%) (Auto) 6.7 7.5 % Eosinophils (%) (Auto) 3.0 3.0 % Basophils (%) (Auto) 0.3 0.3 % Neutrophils # (Auto) 9.78 6.03 1.4-6.5 K/uL Lymphocytes # (Auto) 1.79 1.70 1.2-3.4 K/uL Monocytes # (Auto) 0.86 0.65 0.11-0.59 K/uL Eosinophils # (Auto) 0.39 0.26 0-0.5 K/uL Basophils # (Auto) 0.04 0.03 0-0.2 K/uL RDW Standard Deviation 45.4 44.7 36.4-46.3 fL RDW Coefficient of Variation 13.3 13.1 11.5-14.5 % Immature Granulocyte % (Auto) 0.3 0.2 % Immature Granulocyte # (Auto) 0.04 0.02 0.00-0.02 K/uL Prothrombin Time 9.5 9.0-12.0 SECONDS Prothromb Time International Ratio 0.9 0.9-1.1 Sodium Level 135 134 136-145 mmol/L Potassium Level 3.9 4.0 3.5-5.1 mmol/L Chloride Level 99 100 98-107 mmol/L Carbon Dioxide Level 29 28 21-32 mmol/L Anion Gap 7.0 6.0 3-11 mmol/L Blood Urea Nitrogen 42 34 7-18 mg/dl Creatinine 1.57 1.06 0.60-1.20 mg/dl Est Creatinine Clear Calc Drug Dose 25.6 37.9 ml/min Estimated GFR () 37.0 59.5 Estimated GFR (Non- 31.9 51.3 BUN/Creatinine Ratio 26.9 32.4 10-20 Random Glucose 121 125 70-99 mg/dl Calcium Level 9.3 8.9 8.5-10.1 mg/dl Total Bilirubin 0.2 0.2-1 mg/dl Aspartate Amino Transf (AST/SGOT) 23 15-37 U/L Alanine Aminotransferase (ALT/SGPT) 21 12-78 U/L Alkaline Phosphatase 114 45-117 U/L Troponin I < 0.015 0-0.045 ng/ml Pro-B-Type Natriuretic Peptide 182 0-900 pg/ml Total Protein 7.3 6.4-8.2 gm/dl Albumin 3.3 3.4-5.0 gm/dl Globulin 4.0 2.5-4.0 gm/dl Albumin/Globulin Ratio 0.8 0.9-2 Urine Color YELLOW Urine Appearance CLEAR CLEAR Urine pH 7.0 4.5-7.5 Urine Specific [place] 1.019 1.000-1.030 Urine Protein NEG NEG Urine Glucose (UA) NEG NEG Urine Ketones NEG NEG Urine Occult Blood NEG NEG Urine Nitrite NEG NEG Urine Bilirubin NEG NEG Urine Urobilinogen NEG NEG Urine Leukocyte Esterase NEG NEG Bedside Glucose 129 70-90 mg/dl Diagnostic Radiology CHEST 2 VIEWS ROUTINE CLINICAL HISTORY: hemoptysis dyspnea COMPARISON STUDY: 07/04/[address] dated 06/18/2017 FINDINGS: Unchanging complete atelectasis right middle lobe. Lungs otherwise appear clear. There is a component of emphysematous change. A right hilar mass and/or fullness of the right hilum is again noted. IMPRESSION: Complete atelectasis right middle lobe. Unchanging poorly defined right hilar mass. Lungs otherwise are clear. CT ANGIOGRAM OF THE CHEST CLINICAL HISTORY: Hemoptysis. COMPARISON STUDY: Chest radiograph dated 07/04/2017. Chest CT dated 06/10/2017. PET/CT dated 06/18/2017. TECHNIQUE: Following the IV administration of 84 cc of Optiray 320, CT angiogram of the chest was performed from the upper abdomen to the thoracic inlet utilizing the pulmonary embolus protocol. Images are reviewed in the axial, sagittal, and coronal planes. 3-D MIPS images are created and assessed. IV contrast was administered without complication. A dose lowering technique was utilized adhering to the principles of ALARA. CT DOSE: 192.14 mGy.cm FINDINGS: Thyroid: Imaged portions of the thyroid gland are normal in size and attenuation. Thoracic aorta: There is atherosclerotic calcification of the thoracic aorta, which is normal in caliber and demonstrates standard 3-vessel arch anatomy. No dissection is seen. Pulmonary vasculature: The main pulmonary arteries are dilated suggesting pulmonary artery hypertension. There are no filling defects identified in main, lobar, or segmental pulmonary branches to suggest pulmonary embolus. There is narrowing of the right middle lobe pulmonary artery branches, likely due to central mass lesion. Heart: The heart is normal in size and configuration, and without pericardial effusion. Lungs and pleural spaces: Emphysema is noted. Again seen is complete atelectasis of the right middle lobe, likely related to obstructing central lesion. The lesion itself was not well visualized. There are numerous tiny foci of groundglass nodularity seen throughout both lungs, greatest in the left upper lobe. No pleural effusion is identified. Mild diffuse peribronchial thickening is observed. The trachea is patent. Mediastinum: No pathologically enlarged mediastinal lymph nodes are identified. Robyn: The right hilum is obscured. No left hilar adenopathy is identified. Axillae: There is no axillary lymphadenopathy. Upper abdomen: The liver is heterogeneous. A 1.7 cm cyst is noted in the left hepatic lobe. There is a tiny hiatal hernia. A cortical calcification is noted in the upper lobe of the partially imaged left kidney. There is nodularity of both adrenal glands, similar to previous. Skeletal structures: The skeletal structures are osteopenic. Degenerative change and mild hyperkyphosis are noted in the thoracic spine. No lytic or blastic bony lesions are seen. IMPRESSION: 1. There is no evidence of pulmonary embolus in the main, lobar, or segmental pulmonary arteries. 2. Emphysema. 3. Again seen is complete atelectasis of the right middle lobe, likely related to an obstructing central lesion as suggested by PET. The lesion itself was not well visualized. 4. There are numerous foci of patchy ground glass nodularity seen throughout both lungs, greatest in the left upper lobe. This likely represents an infectious/inflammatory pneumonitis. No pleural effusion is seen. Clinical correlation will be required. Attention at follow-up is recommended. 5. Mild diffuse peribronchial thickening is identified and likely represents reactive airway disease. 6. No pathologically enlarged mediastinal lymph nodes are identified. 7. Additional findings as above. EKG EKG 07/03/2017 NSR 78 bpm Right axis deviation. Impression Assessment and Plan Right middle lobe syndrome Hemoptysis Acute kidney insufficiency Tobacco use disorder Friday is a 77-year-old female with history of diabetes, hyperlipidemia who presents with several episodes of hemoptysis. Last episode was about 3:00 this morning. She denies any further episodes. She is currently hemodynamically stable and shows no signs of respiratory distress. She is saturating well on room air. At the current time, recommend we observe patient for at least 24 hours. If she has no further episodes of hemoptysis, recommend that she be discharged home with follow-up with Dr. Covington, cardiothoracic surgery for further evaluation of this right middle lobe atelectasis and hemoptysis. With her history of smoking, this is concerning for an obstructive lesion. However this can be seen in association with his lymphadenopathy as well as bronchiectasis. Smoking cessation counseling given. Patient has agreed to start nicotine patch today. I also recommend that she begin Tessalon Perles to reduce risk of coughing. She is showing some groundglass opacities on CT chest which may represent an infectious versus inflammatory etiology. Will give a trial of antibiotics5 days. CT scan chest also shows signs of inflammation and PFT done showed mild COPD with an FEV1 of 67%. Wheezing is heard on her exam today. I recommend we add a bronchodilator to her regimen. Continue to hold aspirin for possible further bronchoscopic versus surgical intervention. I appreciate the consult.
[2017-07-04 11:22] VITALS: BP 117/56; PULSE 71; TEMP 36.9; O2SAT 94
[2017-07-04] MEDS ORDERED: DOXYCYCLINE HYCLATE 100 MG CAP PO ONE (11:30)
[2017-07-04 11:58] LABS: C-REACTIVE PROTEIN 1.83 mg/dl (0-0.29); RHEUMATOID FACTOR < 10.0 U/mL (0-15)
[2017-07-04] MEDS ORDERED: BENZONATATE 100MG CAP PO SCH (14:00)
[2017-07-04] MEDS ORDERED: ALBUTEROL HFA 8 GM INHALER INH SCH (15:00)
[2017-07-04 15:51] VITALS: BP 139/67; PULSE 66; TEMP 36.7; O2SAT 93
[2017-07-04] MEDS ORDERED: DXY100 PO (16:30)
[2017-07-04] MEDS ORDERED: HYDR5SYP11 PO (16:30)
[2017-07-04] MEDS ORDERED: LCTX PO (16:30)
[2017-07-04] MEDS ORDERED: CFT250 PO (16:30)
--- NOTE | 2017-07-04 16:32 | Discharge Instructions ---
Discharge Instructions Date of Service Jul 04, 2017. Admission Reason for Admission: Hemoptysis Discharge Discharge Diagnosis / Problem: hempotysis. pneumonia? Discharge Goals Goal(s): Decrease discomfort, Improve function Activity Recommendations Activity Limitations: resume your previous activity . Instructions / Follow-Up Instructions / Follow-Up FOLLOWUP WITH FAMILY DOCTOR ON Jun AT 9:35AM FOLLOWUP WITH PULMONARY/CT SURGERY SCHEDULED Current Hospital Diet Patient's current hospital diet: Diabetes Type 2 Diet, AHA Diet (Heart Healthy) Discharge Diet Recommended Diet: AHA Diet (Heart Healthy), Diabetes Type 2 Diet Pending Studies Studies pending at discharge: no Medical Emergencies . Who to Call and When: Medical Emergencies: If at any time you feel your situation is an emergency, please call 911 immediately. . Non-Emergent Contact Non-Emergency issues call your: Primary Care Provider . . "Provider Documentation" section prepared by Nadir Angeles. . VTE Core Measure Inpt VTE Proph given/why not?: SCD's
[2017-07-04 16:35] VITALS: BP 139/67; PULSE 66; TEMP 36.7; O2SAT 93
--- NOTE | 2017-07-04 18:12 | Progress Note ---
Internal Med Progress Note Date of Service: Jul 04, 2017. Provider Documentation: SUBJECTIVE: no more hemoptysis today has cough denies sob afebrile no pain wants to be discharged and says she has f/u appointments next week which she will keep OBJECTIVE: Vital Signs-as noted below Exam: General-alert and oriented. Not in distress. old and frail ENT-Normal hearing Neck-no neck masses Lungs-CTA b/l no wheezing or crackles Heart-S1 and S2 heard. Regular rate and rhythm, no murmurs Abdomen-Soft Bowel sounds present no tenderness present no distension Extremities-no edema no erythema. Neuro-alert and awake moves extremities Lab data as noted below. ASSESSMENT & PLAN: This is a 77 year old female with a PMH of ongoing tobacco use, HTN, DM2, HLD - presents with hemoptysis. Hemoptysis in the setting of mass in the R hilum and ongoing tobacco abuse Possible pneumonia patient has seen pulmonology for this in the past (06/05) had a bronchial lavage done plan was for patient to see cardiothoracic surgery next week for a plan for possible biopsy of mass Consulted pulmonology and CT surgery and appreciate inputs hb stable want to be discharged and pulmonary ok for discharge to f/u as out patient as scheduled d/c on po abx for possible pneumonia. Acute Kidney Injury possibly secondary to recent change from Lisinopril to Losartan had IV contrast with CT resolved. HTN d/c on home meds f./u labs with pcp DM2 d/c on home meds discharged home Vital Signs: Date Time Temp Pulse Resp B/P (MAP) Pulse Ox O2 Delivery O2 Flow Rate FiO2 07/04/17 16:35 36.7 66 18 93 Room Air 07/04/17 15:51 36.7 66 18 139/67 (91) 93 Room Air 07/04/17 12:00 Room Air 07/04/17 11:22 36.9 71 20 117/56 (76) 94 Room Air 07/04/17 08:00 92 Room Air 07/04/17 07:37 36.7 74 20 119/67 (84) 93 Room Air 07/04/17 04:13 36.7 78 18 159/62 92 Room Air 07/04/17 02:40 76 16 147/73 96 Room Air 07/04/17 00:44 82 18 163/71 94 Room Air 07/04/17 00:23 75 16 142/76 07/03/17 23:50 75 07/03/17 22:33 36.7 94 18 140/73 95 Room Air Lab Results: Results Past 24 Hours Test 07/03/17 23:22 07/04/17 01:10 07/04/17 06:22 07/04/17 06:48 Range/Units White Blood Count 12.90 8.69 4.8-10.8 K/uL Red Blood Count 3.91 3.77 4.2-5.4 M/uL Hemoglobin 12.4 11.8 12.0-16.0 g/dL Hematocrit 36.7 35.2 37-47 % Mean Corpuscular Volume 93.9 93.4 80-100 fL Mean Corpuscular Hemoglobin 31.7 31.3 25-34 pg Mean Corpuscular Hemoglobin Concent 33.8 33.5 32-36 g/dl Platelet Count 397 352 130-400 K/uL Mean Platelet Volume 9.1 8.9 7.4-10.4 fL Neutrophils (%) (Auto) 75.8 69.4 % Lymphocytes (%) (Auto) 13.9 19.6 % Monocytes (%) (Auto) 6.7 7.5 % Eosinophils (%) (Auto) 3.0 3.0 % Basophils (%) (Auto) 0.3 0.3 % Neutrophils # (Auto) 9.78 6.03 1.4-6.5 K/uL Lymphocytes # (Auto) 1.79 1.70 1.2-3.4 K/uL Monocytes # (Auto) 0.86 0.65 0.11-0.59 K/uL Eosinophils # (Auto) 0.39 0.26 0-0.5 K/uL Basophils # (Auto) 0.04 0.03 0-0.2 K/uL RDW Standard Deviation 45.4 44.7 36.4-46.3 fL RDW Coefficient of Variation 13.3 13.1 11.5-14.5 % Immature Granulocyte % (Auto) 0.3 0.2 % Immature Granulocyte # (Auto) 0.04 0.02 0.00-0.02 K/uL Prothrombin Time 9.5 9.0-12.0 SECONDS Prothromb Time International Ratio 0.9 0.9-1.1 Sodium Level 135 134 136-145 mmol/L Potassium Level 3.9 4.0 3.5-5.1 mmol/L Chloride Level 99 100 98-107 mmol/L Carbon Dioxide Level 29 28 21-32 mmol/L Anion Gap 7.0 6.0 3-11 mmol/L Blood Urea Nitrogen 42 34 7-18 mg/dl Creatinine 1.57 1.06 0.60-1.20 mg/dl Est Creatinine Clear Calc Drug Dose 25.6 37.9 ml/min Estimated GFR () 37.0 59.5 Estimated GFR (Non- 31.9 51.3 BUN/Creatinine Ratio 26.9 32.4 10-20 Random Glucose 121 125 70-99 mg/dl Calcium Level 9.3 8.9 8.5-10.1 mg/dl Total Bilirubin 0.2 0.2-1 mg/dl Aspartate Amino Transf (AST/SGOT) 23 15-37 U/L Alanine Aminotransferase (ALT/SGPT) 21 12-78 U/L Alkaline Phosphatase 114 45-117 U/L Troponin I < 0.015 0-0.045 ng/ml Pro-B-Type Natriuretic Peptide 182 0-900 pg/ml Total Protein 7.3 6.4-8.2 gm/dl Albumin 3.3 3.4-5.0 gm/dl Globulin 4.0 2.5-4.0 gm/dl Albumin/Globulin Ratio 0.8 0.9-2 Urine Color YELLOW Urine Appearance CLEAR CLEAR Urine pH 7.0 4.5-7.5 Urine Specific [place] 1.019 1.000-1.030 Urine Protein NEG NEG Urine Glucose (UA) NEG NEG Urine Ketones NEG NEG Urine Occult Blood NEG NEG Urine Nitrite NEG NEG Urine Bilirubin NEG NEG Urine Urobilinogen NEG NEG Urine Leukocyte Esterase NEG NEG Bedside Glucose 129 70-90 mg/dl Test 07/04/17 11:02 07/04/17 11:25 07/04/17 16:11 Range/Units Erythrocyte Sedimentation Rate 33 0-21 mm/hr C-Reactive Protein 1.83 0-0.29 mg/dl Rheumatoid Factor < 10.0 0-15 U/mL Cyclic Citrullinated Peptide IgG Ab 0.73 0-4.99 U/mL Bedside Glucose 316 92 70-90 mg/dl
--- NOTE | 2017-07-04 19:09 | Discharge Summary ---
Discharge Summary Date of Service Jul 04, 2017. Discharge Summary Admission Date: Jul 04, 2017 at 02:34 Discharge Date: Jul 04, 2017 Discharge Disposition: Home Principal Diagnosis: HEMOPTYSIS PNEUMONIA? Secondary Diagnoses/Problems: (1) Arthritis Status: Chronic (2) Diabetes Status: Chronic (3) High cholesterol Status: Chronic (4) Hypertension Status: Chronic Procedures: CTA CHEST: 1. There is no evidence of pulmonary embolus in the main, lobar, or segmental pulmonary arteries. 2. Emphysema. 3. Again seen is complete atelectasis of the right middle lobe, likely related to an obstructing central lesion as suggested by PET. The lesion itself was not well visualized. 4. There are numerous foci of patchy ground glass nodularity seen throughout both lungs, greatest in the left upper lobe. This likely represents an infectious/inflammatory pneumonitis. No pleural effusion is seen. Clinical correlation will be required. Attention at follow-up is recommended. 5. Mild diffuse peribronchial thickening is identified and likely represents reactive airway disease. 6. No pathologically enlarged mediastinal lymph nodes are identified. Consultations: PULMONARY Medication Reconciliation New Medications: Cefuroxime Axetil (Cefuroxime Axetil) 250 Mg Tab 250 MG PO BID for 7 Days Hydrocodone W/ Homatropine (Hycodan 5/1.5MG 5 Ml) 1 Syp Syp 5 ML PO Q6H PRN for Cough for 9 Days, #180 ML Lactobacillus Acidophilus (Lactinex) Tab 2 TAB PO BID for 7 Days, TAB Doxycycline Hyclate (Doxycycline Hyclate) 100 Mg Cap 100 MG PO BID, #14 CAP Continued Medications: Aspirin (Aspirin Low Dose) 81 Mg Tab 81 MG PO DAILY Chlorthalidone (Hygroton) 25 Mg Tab 25 MG PO QAM, TAB Cholecalciferol (Vitamin D3) 1,000 Unit Tab 1 TAB PO DAILY for 30 Days, #30 TAB 5 Refills Escitalopram Oxalate (Lexapro) 5 Mg Tab 5 MG PO DAILY, TAB Glimepiride (Glimepiride) 1 Mg Tab 0.5 MG PO DAILY for 30 Days, #15 TAB 5 Refills Losartan Potassium (Cozaar) 100 Mg Tab 100 MG PO DAILY, TAB Metformin Hcl (Glucophage) 1,000 Mg Tab 1000 MG PO BID, TAB Multivitamins/Minerals (Mvi With Minerals) Tab 1 TAB PO DAILY, TAB Simvastatin (Zocor) 40 Mg Tab 40 MG PO QPM, TAB Admission Information HPI (per Admitting provider): This is a 77 year old female with a PMH of ongoing tobacco use, HTN, DM2, HLD - presents with hemoptysis. She has had this for about one month and has seen pulmonology for this problem. She had a bronchoscopy performed on 06/05 for washing and lavage. Afterwards, patient continued to have hemoptysis so she was scheduled to have an appointment with Dr. Covington, cardiothoracic surgery, on 07/08. She states that her hemoptysis worsened on the evening of 07/03 - she started coughing up clots. She presented to the ER; hemodynamically stable and vitals/labs looked okay, but cough/hemoptysis persisted in the ER. Chest CT was performed showing R middle lobe atelectasis, possible mass and possible infectious etiology. Physical Exam (per Admitting): General Appearance: no apparent distress Head: normocephalic, atraumatic Eyes: normal inspection ENT: hearing grossly normal Neck: supple Respiratory/Chest: no respiratory distress, no accessory muscle use, + wheezing (mild wheezing) Cardiovascular: regular rate, rhythm, no edema, no gallop, no JVD, no murmur , normal peripheral pulses Abdomen/GI: normal bowel sounds, non tender, soft Extremities/Musculoskelatal: normal inspection, no calf tenderness, normal capillary refill, no pedal edema, normal range of motion, + pertinent finding (+ arthritic deformities of fingers) Neurologic/Psych: no motor/sensory deficits, alert, normal mood/affect Skin: normal color Lymphatic: no adenopathy Hospital Course This is a 77 year old female with a PMH of ongoing tobacco use, HTN, DM2, HLD - presents with hemoptysis. Hemoptysis in the setting of mass in the R hilum and ongoing tobacco abuse Possible pneumonia patient has seen pulmonology for this in the past (06/05) had a bronchial lavage done plan was for patient to see cardiothoracic surgery next week for a plan for possible biopsy of mass Consulted pulmonology and CT surgery and appreciate inputs hb stable want to be discharged and pulmonary ok for discharge to f/u as out patient as scheduled d/c on po abx for possible pneumonia. Acute Kidney Injury possibly secondary to recent change from Lisinopril to Losartan had IV contrast with CT resolved. HTN d/c on home meds f./u labs with pcp DM2 d/c on home meds discharged home Total time spent on discharge = 35MINUTES This includes examination of the patient, discharge planning, medication reconciliation, and communication with other providers. Discharge Instructions Discharge Instructions Date of Service Jul 04, 2017. Admission Reason for Admission: Hemoptysis Discharge Discharge Diagnosis / Problem: hempotysis. pneumonia? Discharge Goals Goal(s): Decrease discomfort, Improve function Activity Recommendations Activity Limitations: resume your previous activity . Instructions / Follow-Up Instructions / Follow-Up FOLLOWUP WITH FAMILY DOCTOR ON Jun AT 9:35AM FOLLOWUP WITH PULMONARY/CT SURGERY SCHEDULED Current Hospital Diet Patient's current hospital diet: Diabetes Type 2 Diet, AHA Diet (Heart Healthy) Discharge Diet Recommended Diet: AHA Diet (Heart Healthy), Diabetes Type 2 Diet Pending Studies Studies pending at discharge: no Medical Emergencies . Who to Call and When: Medical Emergencies: If at any time you feel your situation is an emergency, please call 911 immediately. . Non-Emergent Contact Non-Emergency issues call your: Primary Care Provider . . "Provider Documentation" section prepared by Nadir Angeles. . VTE Core Measure Inpt VTE Proph given/why not?: SCD's
[2017-07-04] MEDS ORDERED: SIMVASTATIN 40 MG TAB PO SCH (21:00)
[2017-07-05] MEDS ORDERED: NICOTINE 21 MG/24 HR TDSY TD SCH (09:00)
[2017-07-05] MEDS ORDERED: DOXYCYCLINE HYCLATE 100 MG CAP PO SCH (09:00)
== END 2017-07-04 17:05 | disposition home or self-care (01) | DRG 194 ==
LOC: C.EDB 22:29 → C.2T 07-04 02:34 → ENRESERV 07-04 03:09
PROVIDERS: ADMIT Family Medicine; ATTEND Internal Medicine
DX: J18.9 Pneumonia, unspecified organism (principal); R04.2 Hemoptysis; N17.9 Acute kidney failure, unspecified; R91.8 Other nonspecific abnormal finding of lung field; E11.9 Type 2 diabetes mellitus without complications; I10 Essential (primary) hypertension; E78.00 Pure hypercholesterolemia, unspecified; F17.200 Nicotine dependence, unspecified, uncomplicated; Z79.82 Long term (current) use of aspirin; Z79.84 Long term (current) use of oral hypoglycemic drugs; Z79.899 Other long term (current) drug therapy

== ENCOUNTER 2017-07-11 05:10 | Inpatient (IN) | payer OTHER ==
[~2017-07-11] VITALS: Ht 160 cm; Wt 53.5 kg
[2017-07-11] VITALS (24 sets, daily range): BP systolic 68–129; BP diastolic 29–65; PULSE 67–94; TEMP 36.8–37.1; O2SAT 64–99; Ht 160 cm; Wt 53.5 kg
[~2017-07-11 05:10] MED LIST changes: -ASPI81TA28 PO; +CEFU1TAB36 PO; +DOXY100C76 PO; +HYDR5SYP11 PO; +LCTX PO; -LISI40TA PO; +LOSA1TAB38 PO
[2017-07-11] MEDS ORDERED: LACTATED RINGER'S 1000ML 1,000 ML IV SCH (06:00)
[2017-07-11] MEDS ORDERED: MIDAZOLAM HCL 1 MG/ML 2ML VIAL ONE (06:35)
[2017-07-11] MEDS ORDERED: FENTANYL CITRATE INJ 50 MCG/1 ML 2 ML VIAL ONE ×2 (06:35→08:16)
[2017-07-11] MEDS ORDERED: SODIUM CHLORIDE 0.9% PF 50 ML VIAL ONE ×2 (06:57→08:58)
[2017-07-11] MEDS ORDERED: BUPIVACAINE LIPOSOME 1/3% 266 MG/20 ML VIAL INFIL ONE ×2 (06:57→08:58)
--- NOTE | 2017-07-11 07:03 | History & Physical Bridge Note ---
H&P Re-Evaluation Bridge Note: I have examined the patient, reviewed the History & Physical and in the interval since the performance of the History & Physical I have noted the following changes of clinical significance: No changes noted
[2017-07-11] MEDS ORDERED: ACETAMINOPHEN 1000 MG/100 ML IV IV ONE (07:05)
[2017-07-11] MEDS ORDERED: KETAMINE HCL INJ 50 MG/ML 10 ML VIAL ONE (08:52)
[2017-07-11] MEDS ORDERED: MORPHINE SULFATE PF 2MG/2ML SYR ONE (08:52)
[2017-07-11] MEDS ORDERED: ATROPINE SULFATE 0.1 MG/ML 5ML SYR IV PRN (09:00)
[2017-07-11] MEDS ORDERED: ONDANSETRON INJ 2 MG/ML 2 ML VIAL IV PRN ×2 (09:00→13:00)
[2017-07-11] MEDS ORDERED: EpHEDrine SULFATE INJ 50 MG/ML AMP IV PRN (09:00)
[2017-07-11] MEDS ORDERED: FENTANYL CITRATE INJ 50 MCG/1 ML 2 ML VIAL IV PRN (09:00)
[2017-07-11] MEDS ORDERED: MEPERIDINE HCL 25 MG/ML CARP IV PRN (09:00)
[2017-07-11] MEDS ORDERED: LABETALOL HCL IV 5 MG/ML 20ML IV PRN (09:00)
[2017-07-11] MEDS ORDERED: HYDROmorphone INJ 1 MG/ML SYR IV PRN (09:00)
[2017-07-11] MEDS ORDERED: SURGICEL ABSORB HEMOSTAT 2IN X 14IN TOP ONE (10:02)
[2017-07-11] MEDS ORDERED: GLYCOPYRROLATE INJ 0.2 MG/ML VIAL ONE (11:48)
[2017-07-11] MEDS ORDERED: EpHEDrine SULFATE 50MG/5ML SYR ONE (11:48)
[2017-07-11] MEDS ORDERED: ONDANSETRON INJ 2 MG/ML 2 ML VIAL ONE (11:48)
[2017-07-11] MEDS ORDERED: LARYING-O-JET KIT (LTA) ONE ×2 (11:48)
[2017-07-11] MEDS ORDERED: LIDOCAINE HCL 2% 2 ML VIAL (20MG/ML) ONE (11:48)
[2017-07-11] MEDS ORDERED: ROCURONIUM BROMIDE 10 MG/ML 5 ML VIAL IV ONE (11:48)
[2017-07-11] MEDS ORDERED: NEOSTIGMINE METHYLSULFATE 5 MG/5 ML SYR ONE (11:48)
[2017-07-11] MEDS ORDERED: PHENYLEPHRINE 100MCG/ML 5ML SYR ONE (11:48)
[2017-07-11] MEDS ORDERED: PROPOFOL IV EMULSION 10 MG/ML 20 ML VIAL IV ONE (11:48)
[2017-07-11] MEDS ORDERED: OXYCODONE HCL IR 5 MG TAB (IMMEDIATE RELEASE) PO PRN (13:00)
[2017-07-11] MEDS ORDERED: CEFAZOLIN IV 2,000 MG in DEXTROSE 5% 50ML 100 ML IV SCH (13:00)
[2017-07-11] MEDS ORDERED: MoRPHine SULFATE 2 MG/ML CARP IV PRN (13:00)
--- NOTE | 2017-07-11 13:50 | OPERATIVE REPORT ---
DATE OF OPERATION: 07/11/2017 PREOPERATIVE DIAGNOSIS: Right middle lobe atelectasis with probable endobronchial mass. POSTOPERATIVE DIAGNOSIS: Nonsmall cell lung carcinoma involving continuation of pulmonary artery and bronchus intermedius. PROCEDURE: 1. Left thoracoscopy with bilobectomy removing right middle and lower lobes. 2. Mediastinal lymph node dissection. SURGEON: Dr. Covington. APPLICATION PERFORMANCE ENGINEER: MARY Cash (Mr. Munguia was in the room as the first grade teacher the entire case and was instrumental in holding the camera and retracting as well as closing at the conclusion of the case. ANESTHESIA: General anesthesia endotracheal intubation using double lumen tube. SPECIFICS OF PROCEDURE: This is 77-year-old female who is a cigarette smoker who was found to have atelectasis of her right middle lobe. Bronchoscopy performed and there was some bleeding and diagnosis was not made; however, she did have hypermetabolic activity in the PET scan in the right middle lobe which would be expected. She did not have signs and symptoms of a pneumonia. We felt this was a neoplastic process and I felt that going in and doing a right middle lobectomy was a reasonable option as the patient had no evidence of mediastinal or extrathoracic spread. On 07/11/2017 patient brought to the operating room and underwent a right thoracostomy. She has had no adhesions. I attempted to do a right middle lobectomy and in fact divided the right middle lobe vein as well as the bronchus; however, the mass was growing into the continuation of pulmonary artery and I realized we were not going to be able to remove this. For this reason, we did a bilobectomy. I divided the bronchus intermedius as well as taking the lower lobe veins. I then divided the artery just below the take off the posterior ascending artery. She tolerated this well. We did a lymph node dissection and we also did an Exparel block. DESCRIPTION OF PROCEDURE: The patient was brought to the operating room and placed in supine position. General anesthesia induced and draped the patient following double lumen tube. The patient was placed in the left lateral decubitus position, her right chest prepped and draped in usual sterile fashion. Appropriate timeout was called and antibiotics were given. A 5 mm incision was made about an interspace below the tip of the scapula and carbon dioxide was insufflated. When we put a 5 mm scope and you could see that there were no adhesions. The middle lobe was completely atelectatic. The lower lobe and upper lobe were actually quite pink considering the fact the patient is in fact a heavy cigarette smoker. I immediately went down and the fissures anteriorly and we could see the take off the vein. I then went up and looked at the artery and it appeared that this would proximally and started following this down; however, became more adhesed. I then carried my dissection over from the vein to the fissure and just completely with the Harmonic scalpel. I then started following the artery back up and we could see that it was adherent here. We spent a great deal of time meticulously coming back and forth after dividing the fissure and seeing that this was adherent. I took the bronchus with an Endo-MAIKOL stapler as well as the vein. Upon peeling this up, I thought would be able to get this off the artery. This improved our exposure as we brought it up, I could see that this was going directly into the continuation of pulmonary artery and we were not going to get a clean margin. For this reason, I went back up and divided the main pulmonary artery just below the takeoff of the ascending posterior branch to the upper lobe. We dissected out the inferior pulmonary ligament. I did not see a level 9 node, but there were a couple of level 8 nodes. We cleaned all this off and fired an Endo-MAIKOL stapler across the lower lobe vein. This freed it up nicely and we then freed up the bronchus and fired the Endo-MAIKOL stapler across the bronchus posterior fissure. It should be noted, we made about a 4 cm incision at the fourth interspace anteriorly and another 12 mm incision down at about the seventh interspace. We also converted a 5 mm scope to a 10 mm scope and put appropriate size trocar posteriorly. The bilobectomy specimen was placed in an Endobag and delivered off the field through the working channel of the fourth interspace. This was sent to the pathology for frozen section on the margins. 266 mg of Exparel was then mixed with 60 mL total of normal saline injected from the 2nd to the 11th rib in an intercostal block. We really got a no significant bleeding. As stated, we took down the inferior pulmonary ligament, I really do not see much in the way of lymph nodes, but I took some level 8, level 7, level 4. I did not find a level 2 even though we skeletonized the upper trachea. I also sent off a level 10, 11 and 12s. We really did not have an air leak at the conclusion of the case. Blood loss was negligible. I irrigated out the chest and then placed a 24-Yakut chest tube in the anterior thoracoscopy port and directed towards the apex. It was held in place with heavy silk suture. 0 Vicryl was used to close the muscle layers of the other 2 port sites and then 4-0 Monocryl was used in running subcuticular fashion to approximate the wound edges. She tolerated it well. I then went to the cutting room with Dr. Fili Elaine and we evaluated the bilobectomy specimen. There was concern because of bronchial margin was positive; however, this is the original middle lobe bronchus and I explained after rearranging the lung and putting it back together that we had actually removed this. The proximal bronchus intermedius was negative for carcinoma. I attest to the content of the Intraoperative Record and any orders documented therein. Any exceptions are noted below. YUD
--- NOTE | 2017-07-11 13:59 | DIAGNOSTIC IMAGING REPORT ---
CHEST ONE VIEW PORTABLE HISTORY: 77 years-old Female bilobectomy bilateral lobectomy COMPARISON: Chest radiographs 07/04/2017, CTA of the chest 07/04/2017 TECHNIQUE: Portable upright AP view of the chest FINDINGS: Postoperative changes are seen within the right lung base suggesting prior lobectomy. Large bore chest tube is noted with distal tip projected adjacent to the lateral aspect of the right midlung. Small right-sided pneumothorax is seen with pleural separation measuring 7 mm at the level of the right lung base. Mild right hemidiaphragmatic elevation redemonstrated. Left basilar opacities suggest atelectasis or pneumonitis. Left lung is otherwise clear. Postsurgical changes of the right humeral head. Suggested calcific tendinosis of the left shoulder. Atherosclerosis of the aorta. Mild cardiomegaly. Degenerative changes are seen within the spine. IMPRESSION: 1. Post surgical changes of the medial right lung base with small right pneumothorax. 2. Chest tube projects over the lateral right midlung. The above report was generated using voice recognition software. It may contain grammatical, syntax or spelling errors. Electronically signed by: David Solis M.D. 07/11/2017 1:58 PM Dictated Date/Time: 07/11/2017 1:54 PM
--- NOTE | 2017-07-11 14:32 | Anesthesiology Progress Note ---
Anesthesia Post Op Note Date & Time Jul 11, 2017 at 14:32 Vital Signs Pain Intensity: 0 Vital Signs Past 12 Hours Date Time Temp Pulse Resp B/P (MAP) Pulse Ox O2 Delivery O2 Flow Rate FiO2 07/11/17 14:30 36.6 74 19 106/54 99 Nasal Cannula 2 07/11/17 14:15 78 20 102/55 98 Nasal Cannula 3 07/11/17 14:05 75 17 100/58 97 Mask 10 07/11/17 13:55 80 18 99/54 (70) 97 Mask 10 07/11/17 13:45 80 19 119/59 98 Mask 10 07/11/17 13:35 78 16 111/54 99 Mask 15 07/11/17 13:25 95 12 118/55 92 Mask 15 07/11/17 13:16 36 86 12 101/55 88 Oxymask 10 07/11/17 05:56 37.1 79 24 129/62 94 Room Air Notes Mental Status: alert / awake / arousable, participated in evaluation Pt Amnestic to Procedure: Yes Nausea / Vomiting: adequately controlled Pain: adequately controlled Airway Patency, RR, SpO2: stable & adequate BP & HR: stable & adequate Hydration State: stable & adequate Anesthetic Complications: no major complications apparent
[2017-07-11] MEDS ORDERED: GLUCOSE 40% GEL 15 GM TUBE PO PRN (16:00)
[2017-07-11] MEDS ORDERED: GLUCAGON FOR INJ 1 MG VIAL SQ PRN (16:00)
[2017-07-11] MEDS ORDERED: GLUCOSE 10 TABS/TUBE PO PRN (16:00)
[2017-07-11] MEDS ORDERED: DEXTROSE 50% 50 ML SYR IV PRN (16:00)
[2017-07-11] MEDS: KETOROLAC TROMETHAMINE 15 MG/ML VIAL IV. SCH (16:22)
[2017-07-11] MEDS: METOCLOPRAMIDE HCL INJ 5 MG/ML 2 ML VIAL IV. SCH (16:24)
[2017-07-11] MEDS: CEFAZOLIN IV 2,000 MG in SYRINGE 0 ML IV SCH (16:26)
--- NOTE | 2017-07-11 16:26 | Critical Care Consultation ---
Critical Care Consultation Date of Consultation: Jul 11, 2017. Attending Physician: Fazal Covington MD Reason for Consultation: s/p Left Thoracoscopy w/ Bilobectomy History of Present Illness This is a 77 yo F smoker with h/o T2DM, HTN, HLD, Nonsmall cell Lung Carcinoma s/p L Thoracoscopy w/ Bilobectomy with removal of Right Lower and Middle lobes and Mediastinal Lymph node dissection POD 0 transferred to ICU for postoperative monitoring. She had previously been seen by Pulmonology clinic in 06/05 for hemoptysis, had CT showed RML atelctasis. PET Ct was done showing a 3.7 x 3.3 cm avid focus consistent with primary bronchogenic malignancy. She had a Bronchoscopy, washing/lavage performed 06/24 which was non-diagnostic. She was subsequently scheduled by CT Surgery on 07/[address] Covington, however she presented to the ED 07/03 with worsening hemoptysis. Patient was admitted to [facility] 07/04. CT showed complete RML atelectasis likely related to obstructing central lesion . Patient tolerated Bilobectomy today well and was transferred to ICU. Currently she reports fatigue, weakness post-operatively. she denies pain in general, Chest pain, SOB, Palpitation, sore throat, abdominal pain, n/v. Past Medical/Surgical History NonSmall Cell Lung Carcinoma T2DM HLD HTN Social History Smoking Status: Current Some Day Smoker Marital Status: Occupation Status: retired Allergies Coded Allergies: No Known Allergies (Unverified , 07/11/17) Home Medications Scheduled Cefuroxime Axetil (Cefuroxime Axetil), 1 TAB PO BID Chlorthalidone (Hygroton), 25 MG PO QAM Cholecalciferol (Vitamin D3), 1 TAB PO DAILY Doxycycline Monohydrate (Monodox), 100 MG PO BID Escitalopram Oxalate (Lexapro), 5 MG PO DAILY Glimepiride (Glimepiride), 0.5 MG PO DAILY Losartan Potassium (Cozaar), 100 MG PO DAILY Metformin Hcl (Glucophage), 1,000 MG PO BID Multivitamins/Minerals (Mvi With Minerals), 1 TAB PO DAILY Simvastatin (Zocor), 40 MG PO QPM Scheduled PRN Hydrocodone W/ Homatropine (Hycodan 5/1.5MG 5 Ml), 5 ML PO Q4H PRN for Cough Current Inpatient Medications Current Inpatient Medications Medications (Trade) Dose Ordered Sig/Bushra Route Start Time Stop Time Status Last Admin Dose Admin Lactated Ringer's 1,000 ml @ 15 mls/hr Q24H IV 07/11/17 06:00 07/12/17 05:59 07/11/17 06:21 15 MLS/HR Cholecalciferol (Vitamin D Tab) 1,000 inter.unit DAILY PO 07/12/17 09:00 08/11/17 08:59 UNV Escitalopram Oxalate (Lexapro Tab) 5 mg DAILY PO 07/12/17 09:00 08/11/17 08:59 UNV Losartan Potassium (coZAAR TAB) 100 mg DAILY PO 07/12/17 09:00 08/11/17 08:59 UNV Multivitamins/ Minerals (Multivitamin W/ Minerals Tab) 1 tab DAILY PO 07/12/17 09:00 08/11/17 08:59 UNV Simvastatin (Zocor Tab) 40 mg QPM PO 07/11/17 21:00 08/10/17 20:59 UNV Non-Formulary Medication (Glimepiride ) 0.5 mg DAILY PO 07/12/17 09:00 08/11/17 08:59 UNV Insulin Aspart (novoLOG ASPART) SLIDING SCALE G... ACHS SC 07/11/17 16:00 08/10/17 15:59 UNV Oxycodone HCl (Roxicodone Immediate Rel Tab) 5 mg Q6H PRN PO 07/11/17 13:00 07/25/17 12:59 UNV Acetaminophen 1000 mg/Empty Bag 100 ml @ 400 mls/hr Q8H IV 07/11/17 13:00 08/10/17 12:59 UNV Enoxaparin Sodium (Lovenox Inj) 40 mg DAILY SQ 07/12/17 09:00 08/11/17 08:59 UNV Ondansetron HCl (Zofran Inj) 4 mg Q4H PRN IV 07/11/17 13:00 08/10/17 12:59 UNV Docusate Sodium (coLACE CAP) 100 mg BID PO 07/11/17 21:00 08/10/17 20:59 UNV Cefazolin Sodium 2000 mg/Dextrose 110 ml @ 100 mls/hr Q8H IV 07/11/17 13:00 07/11/17 22:05 UNV Ketorolac Tromethamine (Toradol Inj) 15 mg Q8H IV. 07/11/17 13:00 07/13/17 05:01 UNV Metoclopramide HCl (Reglan Inj) 10 mg Q8 IV. 07/11/17 14:00 07/12/17 13:59 UNV Morphine Sulfate (MoRPHine SULFATE INJ) Q1H PRN IV 07/11/17 13:00 07/25/17 12:59 UNV Review of Systems Constitutional: + weakness, + fatigue, No fever, No chills Respiratory: No cough, No shortness of breath, No hemoptysis Cardiovascular: No chest pain, No edema, No palpitations Abdomen: No pain, No nausea, No vomiting Genitourinary - Female: + problem reported (galaviz catheter) Neurologic: No weakness, No numbness/tingling Physical Exam Date Time Temp Pulse Resp B/P (MAP) Pulse Ox O2 Delivery O2 Flow Rate FiO2 07/11/17 14:45 75 18 104/57 98 Nasal Cannula 2 07/11/17 14:30 36.6 74 19 106/54 99 Nasal Cannula 2 07/11/17 14:15 78 20 102/55 98 Nasal Cannula 3 07/11/17 14:05 75 17 100/58 97 Mask 10 07/11/17 13:55 80 18 99/54 (70) 97 Mask 10 07/11/17 13:45 80 19 119/59 98 Mask 10 07/11/17 13:35 78 16 111/54 99 Mask 15 07/11/17 13:25 95 12 118/55 92 Mask 15 07/11/17 13:16 36 86 12 101/55 88 Oxymask 10 07/11/17 05:56 37.1 79 24 129/62 94 Room Air GENERAL: alert, no distress EYE EXAM: normal conjunctiva, PERRL and EOM's grossly intact OROPHARYNX: no exudate, no erythema, lips, buccal mucosa, and tongue normal and mucous membranes are moist NECK: supple, no nuchal rigidity, no adenopathy, non-tender LUNGS: Clear to auscultation. HEART: no murmurs, S1 normal and S2 normal ABDOMEN: abdomen soft, non-tender, normo-active bowel sounds, no masses, no rebound or guarding. SKIN: no rashes and no bruising UPPER EXTREMITIES: upper extremities are grossly normal. LOWER EXTREMITIES: No pitting edema. NEURO EXAM: Normal sensorium, cranial nerves II-XII grossly intact, normal speech, Laboratory Results Last 24 Hours Test 07/11/17 05:43 07/11/17 10:34 07/11/17 13:36 Bedside Glucose 158 mg/dl 176 mg/dl 184 mg/dl Diagnostic Results CHEST ONE VIEW PORTABLE HISTORY: 77 years-old Female bilobectomy bilateral lobectomy COMPARISON: Chest radiographs 07/04/2017, CTA of the chest 07/04/2017 TECHNIQUE: Portable upright AP view of the chest FINDINGS: Postoperative changes are seen within the right lung base suggesting prior lobectomy. Large bore chest tube is noted with distal tip projected adjacent to the lateral aspect of the right midlung. Small right-sided pneumothorax is seen with pleural separation measuring 7 mm at the level of the right lung base. Mild right hemidiaphragmatic elevation redemonstrated. Left basilar opacities suggest atelectasis or pneumonitis. Left lung is otherwise clear. Postsurgical changes of the right humeral head. Suggested calcific tendinosis of the left shoulder. Atherosclerosis of the aorta. Mild cardiomegaly. Degenerative changes are seen within the spine. IMPRESSION: 1. Post surgical changes of the medial right lung base with small right pneumothorax. 2. Chest tube projects over the lateral right midlung. 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: GCS: 15 Pupils: Pinpoint, reactive, Focal Signs: None Pain control: PRN Morphine PRN Toradol IV Acetaminophen Respiratory: s/p L Thoracoscopy and Bilobectomy ( removal of Right Lower and Middle lobes) saturating well on NC 2L Chest X-ray: Reviewed, post-surgical changes Cardiovascular: HTN, HLD CV drips: Remains off vasoactive medications Rhythm: Sinus HTN: Continue Losartan, Chlorthalidone held HLD: Continue Simvastatin Fluids/Renal: IV Fluids: IV LR 15 mls/hr Net Urine: monitor I/O's Galaviz: Present GI/Nutrition: Feeding: PO T2DM Diet Prophylaxis: On PPI Bowel movements:0 Stool softeners: Colace Endocrine: Last 24 hour glucose: 176- 184 (POC) Insulin SS Metformin, Glimepiride held Hematology: Hemoglobin DVT prophylaxis: Lovenox Infectious Disease/Immunology: Tmax: 36.6 Given perioperative IV Cefazolin Cultures: MRSA: pending Psychiatric: Depression/Anxiety -Continue Lexapro Resident Physician Supervision Note: I was present with Dr. Morris during the history and exam. I discussed the case with the resident and agree with the findings and plan as documented in the note. 77 yo with Hx as above s/p RIght sided Bilobectomy for NSCLung CA s/p extubated and doing well PLAN: Neuro - intact CV - hemodynamically stable, a line in place; c/w hemodynamic monitoring; Pulm - s/p bilobectomy Right sided Chest tube in place --> defer management to surgery. Renal - galaviz in place; monitor uo GI - diet; ENdo - DM c/w coverage; Hemo - stable DVT prophylaxis will check CBC, chemistry; I have personally spent 35 minutes of critical care time in the direct management of this patient. This is a life/limb threatening event. This includes time spent evaluating patient, direct bedside care, chart review, placing orders, interpretation of diagnostic studies, discussion with consultants, patient, and family members, as well as other required patient management activities. This time is exclusive of all separately billable procedures, and teaching time and separate from and in addition to any other critical care service time. Anticipate transfer in am unless critical issues develop. Documented By: Freddie Lott Resident Tracking Resident Involvement: Resident Care Provided Care Provided: Adult Hospital Medicine
[2017-07-11] MEDS: ACETAMINOPHEN IV 1,000 MG in EMPTY BAG 0 ML IV SCH (16:28)
[2017-07-11 18:20] LABS: PROTHROMBIN TIME (PATIENT) 10.6 SECONDS (9.0-12.0)
[2017-07-11] MEDS: INSULIN ASPART 100 UNITS/ML 3 ML PEN SC SCH ×2 (18:24→20:54)
[2017-07-11 18:26] LABS: HEMATOCRIT 32.7 % (37-47); MEAN CELL VOLUME 93.4 fL (80-100); MEAN CORPUSCULAR HEMOGLOBIN 31.1 pg (25-34); MEAN CORPUSCULAR HGB CONC 33.3 g/dl (32-36); MEAN PLATELET VOLUME 9.1 fL (7.4-10.4); PLATELET COUNT 370 K/uL (130-400); WHITE BLOOD COUNT 14.04 K/uL (4.8-10.8)
[2017-07-11] MEDS ORDERED: PHARMACY GLYCEMIC MGMT CONSULT PRN (18:28)
[2017-07-11 18:31] LABS: BASO % 0.1 %; BASO ABS # 0.01 K/uL (0-0.2); COMPLETE YES; IG% 0.3 %; LYMPH % 4.8 %; LYMPH ABS # 0.67 K/uL (1.2-3.4); MONO % 5.2 %; NEUT % 89.6 %
[2017-07-11 18:37] LABS: BUN/CREATININE RATIO 25.3 (10-20); CALCIUM 8.5 mg/dl (8.5-10.1); CREATININE 1.18 mg/dl (0.60-1.20); POTASSIUM 4.5 mmol/L (3.5-5.1)
[2017-07-11] MEDS ORDERED: INSULIN GLARGINE SOLOSTAR 100 UNITS/ML 3 ML PEN SC ONE (18:45)
--- NOTE | 2017-07-11 20:26 | Pharmacy Progress Note ---
Glycemic Control Intl Consult Date of Service Jul 11, 2017. Scope Glycemic Pharmacist consulted by Dr Morris on 07/11/17 for glycemic control and to write orders per [facility] inpatient glycemic control protocol Objective Weight (Kilograms): 53.500 Accuchecks BSG (last 24hrs): Test 07/11/17 05:43 07/11/17 10:34 07/11/17 13:36 07/11/17 16:12 Bedside Glucose 158 mg/dl (70-90) 176 mg/dl (70-90) 184 mg/dl (70-90) 193 mg/dl (70-90) Test 07/11/17 18:01 Random Glucose 174 mg/dl (70-99) Laboratory Data (last 24hrs) Test 07/11/17 18:01 Anion Gap 8.0 mmol/L BUN/Creatinine Ratio 25.3 Blood Urea Nitrogen 30 mg/dl Creatinine 1.18 mg/dl Potassium Level 4.5 mmol/L Sodium Level 136 mmol/L White Blood Count 14.04 K/uL Red Blood Count 3.50 M/uL Hemoglobin 10.9 g/dL Hematocrit 32.7 % Mean Corpuscular Volume 93.4 fL Mean Corpuscular Hemoglobin 31.1 pg Mean Corpuscular Hemoglobin Concent 33.3 g/dl Platelet Count 370 K/uL Mean Platelet Volume 9.1 fL Neutrophils (%) (Auto) 89.6 % Lymphocytes (%) (Auto) 4.8 % Monocytes (%) (Auto) 5.2 % Eosinophils (%) (Auto) 0.0 % Basophils (%) (Auto) 0.1 % Neutrophils # (Auto) 12.59 K/uL Lymphocytes # (Auto) 0.67 K/uL Monocytes # (Auto) 0.73 K/uL Eosinophils # (Auto) 0.00 K/uL Basophils # (Auto) 0.01 K/uL Recent Pertinent Medications Outpatient Anti-diabetic Regimen: * metformin 1 g PO BIDM * glimepiride 0.5 mg PO QD The patient is currently receiving: * Correctional Insulin: Novolog Correction per scale ACHS Goal Range: Low 120 mg/dL - High 150 mg/dL Correction Factor: 25 mg/dL/unit * Prandial insulin: Per carb ratio of 1 unit per 20 grams CHO consumed Risk Factors for Insulin Resistance: * Recent Surgery Assessment & Plan ASSESSMENT: * 77 yo T2D F admitted to ICU s/p bilobectomy * A1c unknown to assess outpatient glycemic control - will add to labs * Fasting BSG on admission 158 mg/dL on admission - already indicating pt could use basal insulin on board * BSGs have been trending up 158-184-193 mg/dL throughout today * Plan will be to hold orals and utilize wt based basal bolus approach and titrate as necessary PLAN FOR INPATIENT GLYCEMIC CONTROL: * Hold outpatient oral diabetes medications * Basal insulin with LANTUS 15 units SQ X 1, continue 10 u BID in the AM if BSGs >100 mg/dL * Correctional Insulin with NOVOLOG per scale ACHS or Q6hrs while NPO * Goal Range: Low 120 mg/dL - High 150 mg/dL * Correction Factor: 40 mg/dL/unit * Nutritional / Prandial insulin per carb ratio of 1 unit per 15 grams CHO consumed * Please note that the plan above was derived based on current level of insulin resistance and hospital stress. These recommendations are appropriate for inpatient admission only. Plan of care upon discharge will need to be reassessed to avoid potential outpatient hypo/hyperglycemia. Thank you.
[2017-07-11] MEDS: DOCUSATE SODIUM 100 MG CAP PO SCH (20:50)
[2017-07-11] MEDS: SIMVASTATIN 40 MG TAB PO SCH (20:50)
[2017-07-12] VITALS (18 sets, daily range): BP systolic 78–106; BP diastolic 33–55; PULSE 63–88; TEMP 36.6–36.9; O2SAT 88–100
[2017-07-12 00:21] LABS: HEMATOCRIT 28.9 % (37-47); MEAN CELL VOLUME 93.2 fL (80-100); MEAN CORPUSCULAR HEMOGLOBIN 30.6 pg (25-34); MEAN CORPUSCULAR HGB CONC 32.9 g/dl (32-36); MEAN PLATELET VOLUME 8.6 fL (7.4-10.4); PLATELET COUNT 308 K/uL (130-400); WHITE BLOOD COUNT 9.97 K/uL (4.8-10.8)
[2017-07-12] MEDS: METOCLOPRAMIDE HCL INJ 5 MG/ML 2 ML VIAL IV. SCH ×2 (00:24→08:33)
[2017-07-12] MEDS: ACETAMINOPHEN IV 1,000 MG in EMPTY BAG 0 ML IV SCH (00:24)
[2017-07-12] MEDS: CEFAZOLIN IV 2,000 MG in SYRINGE 0 ML IV SCH (00:24)
[2017-07-12] MEDS: KETOROLAC TROMETHAMINE 15 MG/ML VIAL IV. SCH (00:25)
[2017-07-12 00:48] LABS: BUN/CREATININE RATIO 25.6 (10-20); CREATININE 1.17 mg/dl (0.60-1.20); POTASSIUM 4.4 mmol/L (3.5-5.1)
[2017-07-12 06:45] LABS: BASO % 0.2 %; BASO ABS # 0.02 K/uL (0-0.2); COMPLETE YES; HEMATOCRIT 28.1 % (37-47); IG% 0.2 %; LYMPH % 19.2 %; LYMPH ABS # 1.69 K/uL (1.2-3.4); MEAN CELL VOLUME 93.7 fL (80-100); MEAN CORPUSCULAR HEMOGLOBIN 30.7 pg (25-34); MEAN CORPUSCULAR HGB CONC 32.7 g/dl (32-36); MONO % 6.8 %; NEUT % 72.6 %; PLATELET COUNT 330 K/uL (130-400); WHITE BLOOD COUNT 8.82 K/uL (4.8-10.8)
[2017-07-12 07:20] LABS: ESTIMATED AVERAGE GLUCOSE 151 mg/dl; HA1C FLAG Normal (Normal)
[2017-07-12 07:22] LABS: BUN/CREATININE RATIO 25.9 (10-20); CALCIUM 7.9 mg/dl (8.5-10.1); CREATININE 1.17 mg/dl (0.60-1.20); POTASSIUM 3.8 mmol/L (3.5-5.1)
--- NOTE | 2017-07-12 07:25 | DIAGNOSTIC IMAGING REPORT ---
CHEST ONE VIEW PORTABLE HISTORY: 77 years-old Female bilobectomy follow-up study in a patient with pneumothorax status post lobectomy COMPARISON: Radiographs 07/11/2017 TECHNIQUE: Portable upright AP view of the chest FINDINGS: Cardiac silhouette is upper limits of normal, unchanged. Atherosclerosis of the aorta. Left lung is generally clear. Postoperative changes are seen at the medial right lung base. There is increased amount of right pleural fluid with stable positioning of right-sided chest tube. Subsegmental right basilar opacities suggest atelectasis. Previously noted right-sided pneumothorax is not definitively seen. Bones of the chest are grossly intact. There are postsurgical changes of the right humeral head. Possible rotator cuff calcific tendinosis on the left. IMPRESSION: 1. Stable positioning of right-sided chest tube. Previously noted small right pneumothorax not appreciated on today's study. 2. Postoperative changes of the right lung with small right pleural effusion. The above report was generated using voice recognition software. It may contain grammatical, syntax or spelling errors. Electronically signed by: David Solis M.D. 07/12/2017 7:23 AM Dictated Date/Time: 07/12/2017 7:21 AM
--- NOTE | 2017-07-12 08:01 | SURGERY PROGRESS NOTE ---
DATE: 07/12/2017 SUBJECTIVE: Ms. Nathan was seen today 1 day status post a thoracoscopic right middle and lower bilobectomy for nonsmall cell lung carcinoma. She is sitting up in a chair. She is eating a house diet. Her pain is controlled very well. Her pulse oximetry is 100% on 2 liters. There have been some issues with her blood pressure overnight being low; however, she has made excellent urine and she is not acidotic. She has made 450 mL overnight. Her blood sugar was a bit low at 46; however, she has no signs and symptoms and is eating jelly on toast as we speak. She does have decreased breath sounds in the right base, but actually is moving air well otherwise. She has no wheezing. She has an excellent cough, but no air leak. She has drained only 200 mL total from her chest tubes since surgery. I reviewed her x-ray and I think it looks quite good. She has no pneumothorax this morning. Reviewing her labs shows a sodium of 133, BUN of 30, and a creatinine of 1.17, which is stable. Her carbon dioxide is 31. Her hemoglobin is 9.2. It was 10.9 last night. It was 9.5 at midnight. She has been receiving IV fluids. In fact, she is urinating quite a bit. ASSESSMENT AND PLAN: Postoperative day #1, status post thoracoscopic right middle and lower bilobectomy for a nonsmall cell lung carcinoma. Our margins are negative in the bronchus. We did a mediastinal lymphadenectomy also. The patient has done quite well. We are going to discontinue her Arguelles catheter monitor and IVs and move her to a regular room. She has been ambulating up around the bed, ambulating in the hallway. I would probably keep her chest tube in for at least another 48 hours and hopefully, plan for discharge on 07/14/2017. I have been quite happy with how well she has responded. Hopefully, we can wean her off the oxygen in the next day or so.
[2017-07-12] MEDS: CHLORTHALIDONE 25 MG TAB PO SCH (08:32)
[2017-07-12] MEDS: CEROVITE ADV FORMULA TAB PO SCH (08:32)
[2017-07-12] MEDS: DOCUSATE SODIUM 100 MG CAP PO SCH ×2 (08:32→21:06)
[2017-07-12] MEDS: CHOLECALCIFEROL 1000 INTER.UNIT TAB PO SCH (08:32)
[2017-07-12] MEDS: LOSARTAN POTASSIUM 50 MG TAB PO SCH (08:33)
[2017-07-12] MEDS: ENOXAPARIN 40 MG/0.4 ML SYR SQ SCH (08:34)
[2017-07-12] MEDS: INSULIN ASPART 100 UNITS/ML 3 ML PEN SC SCH ×4 (08:37→21:12)
[2017-07-12] MEDS ORDERED: GLIMEPIRIDE 2 MG TAB PO SCH (09:00)
[2017-07-12] MEDS ORDERED: ESCITALOPRAM OXALATE 10 MG TAB PO SCH (09:00)
[2017-07-12] MEDS ORDERED: INSULIN GLARGINE SOLOSTAR 100 UNITS/ML 3 ML PEN SC SCH (09:00)
[2017-07-12] MEDS ORDERED: NURSING VERBAL MED ORDER ONE (09:45)
--- NOTE | 2017-07-12 15:28 | Pharmacy Progress Note ---
Pharmacy Glycemic Short Note 2 Date of Service Jul 12, 2017. Test 07/11/17 16:12 07/11/17 18:01 07/11/17 20:48 07/12/17 00:13 Bedside Glucose 193 mg/dl (70-90) 175 mg/dl (70-90) Random Glucose 174 mg/dl (70-99) 98 mg/dl (70-99) Test 07/12/17 05:50 07/12/17 08:00 07/12/17 11:41 Random Glucose 46 mg/dl (70-99) Bedside Glucose 78 mg/dl (70-90) 162 mg/dl (70-90) Test 07/12/17 05:50 Hemoglobin A1c 6.9 % (4.5-5.6) H OUTPATIENT ANTIDIABETIC REGIMEN: * metformin 1 g PO BIDM * glimepiride 0.5 mg PO QD ASSESSMENT: * Pt received 19 units of insulin yesterday, had an episode of hypoglycemia this morning d/t too much basal * Hold AM dose of Lantus and change parameters so patient only receives if BSG 180mg/dl or greater PLAN FOR INPATIENT GLYCEMIC CONTROL: * Hold outpatient oral diabetes medications * Basal insulin - HOLD AM dose today then: * Lantus SQ BID * BSG < 180mg/dl - 0 units * BSG 180mg/dl or greater - 10 units * Bolus insulin * NovoLog per scale ACHS or Q6hrs while NPO * Goal Range: Low 120 mg/dL - High 150 mg/dL * Correction Factor: 40 mg/dL/unit * Nutritional / Prandial insulin per carb ratio of 1 unit per 15 grams CHO consumed PLAN FOR DISCHARGE: * A1c = 6.9%, no changes needed at this time
[2017-07-12] MEDS: ESCITALOPRAM OXALATE 10 MG TAB PO SCH (21:04)
[2017-07-12] MEDS: INSULIN GLARGINE SOLOSTAR 100 UNITS/ML 3 ML PEN SC SCH (21:13)
[2017-07-12] MEDS: SIMVASTATIN 40 MG TAB PO SCH (21:19)
[2017-07-13] VITALS (7 sets, daily range): BP systolic 114–164; BP diastolic 54–72; PULSE 63–87; TEMP 36.8–37.1; O2SAT 85–93
[2017-07-13 06:18] LABS: MEAN CELL VOLUME 92.1 fL (80-100); MEAN CORPUSCULAR HEMOGLOBIN 31.3 pg (25-34); MEAN CORPUSCULAR HGB CONC 33.9 g/dl (32-36); MEAN PLATELET VOLUME 8.8 fL (7.4-10.4); PLATELET COUNT 327 K/uL (130-400); RED BLOOD COUNT 3.04 M/uL (4.2-5.4); WHITE BLOOD COUNT 9.43 K/uL (4.8-10.8)
[2017-07-13 06:52] LABS: BUN/CREATININE RATIO 27.8 (10-20); CALCIUM 8.6 mg/dl (8.5-10.1); CREATININE 0.92 mg/dl (0.60-1.20); POTASSIUM 3.9 mmol/L (3.5-5.1)
[2017-07-13] MEDS: INSULIN GLARGINE SOLOSTAR 100 UNITS/ML 3 ML PEN SC SCH ×2 (09:00→22:26)
[2017-07-13] MEDS: CHLORTHALIDONE 25 MG TAB PO SCH (09:02)
[2017-07-13] MEDS: CEROVITE ADV FORMULA TAB PO SCH (09:02)
[2017-07-13] MEDS: LOSARTAN POTASSIUM 50 MG TAB PO SCH (09:02)
[2017-07-13] MEDS: CHOLECALCIFEROL 1000 INTER.UNIT TAB PO SCH (09:02)
[2017-07-13] MEDS: ENOXAPARIN 40 MG/0.4 ML SYR SQ SCH (09:03)
[2017-07-13] MEDS: INSULIN ASPART 100 UNITS/ML 3 ML PEN SC SCH ×4 (09:07→22:25)
--- NOTE | 2017-07-13 10:01 | SURGERY PROGRESS NOTE ---
DATE: 07/13/2017 SUBJECTIVE: Friday was seen today 2 days status post a thoracoscopic right middle and lower bilobectomy for nonsmall cell lung carcinoma. She was transferred up to the floor yesterday. Her maximum temperature is 37.1. Blood pressure has been fine. She has now been weaned off oxygen and is 93% and is ambulating in the hallway. She has no air leak and minimal drainage in her chest tube. I reviewed her labs today and her white count remains normal at 9430, hemoglobin stable at 9.5. Her BUN and creatinine are 25 and 0.92 and her sodium is stable at 132. ASSESSMENT AND PLAN: Postoperative day #2. She has done well. Will check a chest x-ray earlier in the morning and if looks good, we will remove her chest tube and discharge her.
[2017-07-13] MEDS: DOCUSATE SODIUM 100 MG CAP PO SCH ×2 (13:08→22:21)
[2017-07-13] MEDS: ESCITALOPRAM OXALATE 10 MG TAB PO SCH (22:20)
[2017-07-13] MEDS: SIMVASTATIN 40 MG TAB PO SCH (23:15)
[2017-07-14 03:54] VITALS: O2SAT 88
[2017-07-14 03:55] VITALS: O2SAT 94
--- NOTE | 2017-07-14 07:41 | Anesthesiology Progress Note ---
Anesthesia Post Op Note Date & Time Jul 14, 2017 at 07:40 Vital Signs Pain Intensity: 1.0 Vital Signs Past 12 Hours Date Time Temp Pulse Resp B/P (MAP) Pulse Ox O2 Delivery O2 Flow Rate FiO2 07/14/17 03:55 94 Nasal Cannula 2.0 07/14/17 03:54 88 Room Air 07/13/17 23:50 Nasal Cannula 2.0 07/13/17 23:05 93 Nasal Cannula 2.0 07/13/17 23:00 37.0 63 16 129/66 (87) 85 Room Air Notes Mental Status: alert / awake / arousable Pt Amnestic to Procedure: Yes Nausea / Vomiting: adequately controlled Pain: adequately controlled Airway Patency, RR, SpO2: stable & adequate BP & HR: stable & adequate Hydration State: stable & adequate pt c/o pain at site of chest tube. otherwise pain free
[2017-07-14 07:44] VITALS: BP 119/54; PULSE 72; TEMP 36.8; O2SAT 94
[2017-07-14 07:47] VITALS: O2SAT 94
[2017-07-14] MEDS ORDERED: TRAM-10 PO (07:54)
[2017-07-14] MEDS ORDERED: CLC100 PO (07:54)
--- NOTE | 2017-07-14 07:57 | Discharge Instructions ---
Discharge Instructions Date of Service Jul 14, 2017. Admission Reason for Admission: Right Lung Mass, Diabetes Discharge Discharge Diagnosis / Problem: Lung Cancer Discharge Goals Goal(s): Learn about illness Activity Recommendations Activity Limitations: as noted below Lifting Limitations: none 1. You may remove dressings on 07/17/17 and shower therafter. No tub baths. 2. Do not drive if taking ultram. 3. Do not drive until cleared to do so by Dr. Covington. Instructions / Follow-Up Instructions / Follow-Up 1. Office appointment with Dr. Covington on , July 17, 2017. Office will call you with date and time of appointment. Go to hospital 1 hour before appointment to have a chest x-ray taken. Current Hospital Diet Patient's current hospital diet: Diabetes Type 2 Diet Discharge Diet Recommended Diet: Diabetes Type 2 Diet Procedures Procedures Performed: Right Video Assisted Thoracoscopy with Right Middle and Lower Lobectomy and Mediastinal Lymphadenectomy Pending Studies Studies pending at discharge: no Laboratory Results Hemoglobin A1c Test 07/12/17 05:50 Range/Units Estimated Average Glucose 151 mg/dl Hemoglobin A1c 6.9 H 4.5-5.6 % Medical Emergencies . Who to Call and When: Medical Emergencies: If at any time you feel your situation is an emergency, please call 911 immediately. . Non-Emergent Contact Non-Emergency issues call your: Surgeon Call Non-Emergent contact if: you have a fever, your pain is not controlled, wound has increased drainage . "Provider Documentation" section prepared by Allen Basurto. . VTE Core Measure Inpt VTE Proph given/why not?: Enoxaparin (Lovenox)SQ
--- NOTE | 2017-07-14 08:04 | DIAGNOSTIC IMAGING REPORT ---
CHEST ONE VIEW PORTABLE HISTORY: 77 years-old Female lobectomy status post right-sided lobectomy COMPARISON: Chest radiograph 07/12/2017 TECHNIQUE: Portable upright AP view of the chest FINDINGS: Cardiac silhouette is within normal limits. Atherosclerosis of the aorta. The left lung appears clear. No definite pneumothorax. Postoperative changes of the medial right lung base. Persistent right-sided pleural effusion with unchanged position of large bore right-sided chest tube. Slightly progressive right basilar opacities. Bones appear intact. Degenerative changes are seen within the spine and shoulders. Postoperative changes noted within the right humeral head. IMPRESSION: 1. Stable positioning of right-sided chest tube with unchanged right-sided pleural effusion and postoperative changes of the right lung. 2. Mildly progressive right basilar opacities suggesting atelectasis. 3. No definite pneumothorax identified. The above report was generated using voice recognition software. It may contain grammatical, syntax or spelling errors. Electronically signed by: David Solis M.D. 07/14/2017 8:03 AM Dictated Date/Time: 07/14/2017 7:59 AM
--- NOTE | 2017-07-14 08:15 | DIAGNOSTIC IMAGING REPORT ---
CHEST ONE VIEW PORTABLE CLINICAL HISTORY: Chest tube removal. COMPARISON STUDY: Chest radiograph July 14, 2017 at 7:12 AM. FINDINGS: A small right apical pneumothorax with pleural separation of 1.8 cm is noted. The right chest tube has been removed. The moderate right pleural effusion is unchanged. There is no evidence of pulmonary edema. IMPRESSION: 1. Small right apical pneumothorax. Interval removal of right-sided chest tube. 2. No change in a moderate right pleural effusion with right lower lung airspace opacity. Electronically signed by: Jordan Conner M.D. 07/14/2017 8:14 AM Dictated Date/Time: 07/14/2017 8:10 AM
[2017-07-14] MEDS: DOCUSATE SODIUM 100 MG CAP PO SCH (08:42)
[2017-07-14] MEDS: CHLORTHALIDONE 25 MG TAB PO SCH ×2 (08:42→08:53)
[2017-07-14] MEDS: LOSARTAN POTASSIUM 50 MG TAB PO SCH ×2 (08:43→08:53)
[2017-07-14] MEDS: CHOLECALCIFEROL 1000 INTER.UNIT TAB PO SCH (08:43)
[2017-07-14] MEDS: CEROVITE ADV FORMULA TAB PO SCH (08:46)
[2017-07-14] MEDS: INSULIN GLARGINE SOLOSTAR 100 UNITS/ML 3 ML PEN SC SCH (08:47)
[2017-07-14] MEDS: INSULIN ASPART 100 UNITS/ML 3 ML PEN SC SCH (08:49)
[2017-07-14] MEDS: ENOXAPARIN 40 MG/0.4 ML SYR SQ SCH (08:50)
[2017-07-14 08:53] VITALS: BP 97/53
[2017-07-14 10:48] VITALS: BP 97/53; PULSE 72; TEMP 36.8; O2SAT 94
--- NOTE | 2017-07-15 14:55 | DISCHARGE SUMMARY ---
DISCHARGE DIAGNOSES: Nonsmall cell lung carcinoma, right middle lobe and right lower lobe. HOSPITAL COURSE: Fatoumata Nathan is a delightful 77-year-old woman who has been smoking her entire adult life. She developed persistent cough, was found to have collapse of her right middle lobe. A PET scan showed hypermetabolic activity; however, we did not have a diagnosis going in. I felt that she needed a middle lobectomy. I really did not see much in the way of any lymphadenopathy. On 07/11/2017 the patient underwent a thoracoscopic right middle and lower bilobectomy. We attempted to do a right middle lobectomy; however, the atelectasis of the middle lobe caused difficulty interpreting the CT images of the hilum. She had involvement of the continuation of pulmonary artery after the takeoff of the upper lobe branches. We finally ended up doing a middle lobe and a lower lobe bilobectomy and our resection margins were negative on frozen section. We did mediastinal lymphadenectomy. The patient did very well although she was watched in the unit overnight as I was a bit concerned about her need for oxygen. She did very well, was weaned off of oxygen after 1 day, we moved her to the floor. We kept her chest tube in until postop day 3 and removed it. Her chest x-ray looked quite good. She was ambulating in the hallway, tolerating a house diet. Her incisions were clean. She did very well with this. The pathology was not back at the time of her discharge. I will see her in the office later this week and we will go over her pathology results.
== END 2017-07-14 11:15 | disposition home or self-care (01) | DRG 164 ==
LOC: C.ACU 05:10 → C.MSICU 12:54 → ENRESERV 14:30 → C.MSN 07-12 09:53
PROVIDERS: ADMIT Surgery; ATTEND Surgery
PROC: 0BTF4ZZ Resection of Right Lower Lung Lobe, Percutaneous Endoscopic Approach (ICD-10-PCS; principal; 2017-07-11 07:15)
PROC: 07B74ZX Excision of Thorax Lymphatic, Percutaneous Endoscopic Approach, Diagnostic (ICD-10-PCS; principal; 2017-07-11 07:15)
PROC: 0BTD4ZZ Resection of Right Middle Lung Lobe, Percutaneous Endoscopic Approach (ICD-10-PCS; principal; 2017-07-11 07:15)
DX: C34.81 Malignant neoplasm of overlapping sites of right bronchus and lung (principal); J98.11 Atelectasis; F17.210 Nicotine dependence, cigarettes, uncomplicated; J44.9 Chronic obstructive pulmonary disease, unspecified; E11.21 Type 2 diabetes mellitus with diabetic nephropathy; E78.5 Hyperlipidemia, unspecified; I10 Essential (primary) hypertension; Z79.82 Long term (current) use of aspirin

== ENCOUNTER 2017-07-17 16:17 | Inpatient (IN) | payer OTHER ==
[~2017-07-17] VITALS: Ht 160 cm; Wt 51.0 kg
[2017-07-17] VITALS (7 sets, daily range): BP systolic 124–162; BP diastolic 48–80; PULSE 59–70; TEMP 36.4–36.9; O2SAT 93–97; Ht 160 cm; Wt 51.0 kg
[~2017-07-17 16:17] MED LIST changes: -AMOX1TAB43 PO
[2017-07-17] MEDS ORDERED: LIDOCAINE HCL 1% 20 ML VIAL ONE (16:33)
--- NOTE | 2017-07-17 17:25 | DIAGNOSTIC IMAGING REPORT ---
SINGLE VIEW CHEST CLINICAL HISTORY: Pneumothorax. FINDINGS: An AP, portable, upright chest radiograph is compared to study performed earlier the same day 07/17/2017. Correlation is made with chest CT dated 07/04/2017. The examination is degraded by portable technique and patient rotation. The heart is enlarged and there is atherosclerotic calcification of the thoracic aorta. A chest tube is been placed at the right lung base. A right basilar pneumothorax has decreased in size from previous. There is a small persistent pneumothorax identified at the right apex. There is elevation of the right hemidiaphragm. Emphysema and chronic additional thickening are similar to prior studies. The left lung is grossly clear. There is no left-sided pneumothorax. The skeletal structures are osteopenic. The bony thorax is grossly intact. Arthritic change is seen in the shoulders and thoracic spine. Anchors are noted in the right humeral head. IMPRESSION: 1. A chest tube has been placed at the right lung base. There is a small residual right-sided pneumothorax, decreased in size from earlier today. 2. Cardiomegaly and emphysema. 3. The left lung appears clear. Electronically signed by: Tylor Galvan M.D. 07/17/2017 5:24 PM Dictated Date/Time: 07/17/2017 5:21 PM
[2017-07-17] MEDS ORDERED: ONDANSETRON INJ 2 MG/ML 2 ML VIAL IV PRN (17:30)
[2017-07-17] MEDS ORDERED: TRAMADOL HCL 50 MG TAB PO PRN (17:30)
[2017-07-17] MEDS ORDERED: ACETAMINOPHEN 325 MG TAB PO PRN (17:30)
[2017-07-17] MEDS ORDERED: HYDROCODONE/HOMATROPINE SYRUP 5MG/1.5MG 5ML UDP PO PRN (17:30)
[2017-07-17 18:12] LABS: PLEURAL FLUID TOTAL PROTEIN 3.5 g/dl
[2017-07-17 18:17] LABS: PLEURAL FLUID APPEARANCE BLOODY; PLEURAL FLUID COLOR RED; PLEURAL FLUID SOURCE RIGHT LUNG; PLEURAL FLUID WBC (A) 1763 /uL
--- NOTE | 2017-07-17 18:29 | HISTORY & PHYSICAL EXAMINATION ---
DATE OF ADMISSION: 07/17/2017 Readmission note. DATE OF READMISSION: 07/17/2017 REASON FOR READMISSION: Right hydropneumothorax, status post thoracoscopic bilobectomy. HISTORY OF PRESENT ILLNESS: This is a very nice 77-year-old smoker who was found to have collapse of her right middle lobe, and after workup, I took her to the operating room on 07/11/2017 and did a thoracoscopic attempted right middle lobectomy but the cancer was too extensive, so ended up taking the lower lobe and middle lobe. Our resection margins were negative. She had a small air leak at the time of surgery but this had resolved. I kept her in the hospital for 3 days, and on 07/14/2017, she was discharged after her chest tube was removed and there was no evidence of hydropneumothorax. The patient states she has been feeling a little bit more short of breath and came to the office today for routine followup and I was disappointed to see that she had an air-fluid level and her pneumothorax was much larger. I felt that this was a very small air leak and that a PleurX catheter would be helpful, so I brought her over to critical care educator in the medical treatment unit and inserted a PleurX catheter. Approximately 700 mL of serous fluid was drained and we got significant amount of air. Her x-ray was greatly improved; however, she had a persistent small air leak. For this reason, I am attaching her to a Adriane drainage system. I am going to keep her overnight in hopes that this air leak will improve. It is small and intermittent but it is definitely present and I think she is going to suffer a recurrent pneumothorax if we simply send her home with the PleurX in place. I had a long talk with the patient and her 2 sisters. She is a very interesting patient. She was found to have actually 2 different cancers. 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 We had clean margins. It was 3.1 cm, making her T2a. Unfortunately, of the 14 lymph nodes examined, her level 12 nodes which were in the area of our dissection around the right middle lobe bronchus were positive for carcinoma. This is in level 12 area. This makes her T2a, N1 carcinoma. I discussed this in detail with the patient and her sisters today. She is going to require an oncologic evaluation and probable chemotherapy for this stage IIA lung carcinoma. A bit concerned about this poorly differentiated pleomorphic carcinoma and we will wait and see what the final stains show. For her other past medical history and rest of her physical exam, please refer to my history and physical from last week. In addition, her incisions are healing nicely. Her saturations are 99% on room air. Otherwise, I think she looks quite good. MTDD
[2017-07-17 18:58] LABS: HEMATOCRIT 29.3 % (37-47); MEAN CELL VOLUME 91.3 fL (80-100); MEAN CORPUSCULAR HEMOGLOBIN 31.2 pg (25-34); MEAN CORPUSCULAR HGB CONC 34.1 g/dl (32-36); MEAN PLATELET VOLUME 8.4 fL (7.4-10.4); PLATELET COUNT 409 K/uL (130-400); RED BLOOD COUNT 3.21 M/uL (4.2-5.4); WHITE BLOOD COUNT 7.69 K/uL (4.8-10.8)
[2017-07-17 19:07] LABS: INR 0.9 (0.9-1.1); PROTHROMBIN TIME (PATIENT) 9.5 SECONDS (9.0-12.0)
[2017-07-17] MEDS: METFORMIN HCL 500 MG TAB PO SCH (19:10)
[2017-07-17 19:24] LABS: CREATININE 0.89 mg/dl (0.60-1.20)
--- NOTE | 2017-07-17 20:56 | OPERATIVE REPORT ---
DATE OF OPERATION: 07/17/2017 PROCEDURE: Insertion of a right PleurX catheter. SURGEON: Fazal Covington MD. ADMISSIONS REPRESENTATIVE: MARY Cash. ANESTHESIA: Local. SPECIFICS OF PROCEDURE: With the patient in a left lateral decubitus position, an ultrasound was used and an area of air and fluid were identified fairly low. At approximately the eighth interspace in about the mid axillary line, an area was selected and marked. I then prepped and draped her and after appropriate timeout had been called, I made 2 skin wheals about 10 cm apart and anesthetize both. I then used a needle to anesthetize the deeper subcutaneous tissues, muscle and then pleura and air back for the more posterior incision. This insertion site was enlarged to about 1 cm and a large bore needle was used to anesthetize the deeper tissues and we got air out of this. I inserted a soft J-tip guidewire which went in easily and removed the needle. I then anesthetized the subcutaneous tissues between the 2 anesthetized skin wheals. Another 1 cm incision was made anteriorly and a tunnel was attached to PleurX catheter and dragged from the anterior to posterior incision. The tunnel was removed. Introducer sheath with inner cannula was slid over the guidewire posteriorly into this incision and the inner cannula and guidewire removed and the PleurX catheter was inserted through this peel away sheath which was removed. It was sutured in place with 3-0 silk sutures. It was also sutured in place anteriorly with a 3-0 silk suture. Approximately 700 mL of serous fluid was drained, although we had persistent leak. We attached this to the Pleurovac and got her ready for admission. I attest to the content of the Intraoperative Record and any orders documented therein. Any exception s are noted below.
[2017-07-17] MEDS: DOCUSATE SODIUM 100 MG CAP PO SCH (21:00)
[2017-07-17] MEDS: SIMVASTATIN 40 MG TAB PO SCH (21:04)
[2017-07-17] MEDS: ENOXAPARIN 40 MG/0.4 ML SYR SQ SCH (21:05)
[2017-07-17] MEDS: INSULIN ASPART 100 UNITS/ML 3 ML PEN SC SCH (21:09)
[2017-07-18 03:37] VITALS: BP 124/57; PULSE 63; TEMP 36.6; O2SAT 91
[2017-07-18 06:49] LABS: PLEURAL FLUID MONONUC RELAT 49.6 %; PLEURAL FLUID POLYNUC 50.4 %
--- NOTE | 2017-07-18 07:29 | DIAGNOSTIC IMAGING REPORT ---
CHEST ONE VIEW PORTABLE CLINICAL HISTORY: pneumothorax pneumothorax COMPARISON STUDY: 07/17/2017 FINDINGS: Interval placement of a right basilar chest tube. Right basilar pneumothorax as well as right apical pneumothorax is slightly increased in volume. Bladder to diaphragmatic separation right base has increased to approximately 2 cm. Pleural separation over the right apex is somewhat difficult to define but appears to be approximately 1.3 cm. Left lung remains clear. IMPRESSION: Slight increase in volume of a right-sided pneumothorax. Interval placement of right basilar chest tube. The above report was generated using voice recognition software. It may contain grammatical, syntax or spelling errors. Electronically signed by: Daniel Higgins M.D. 07/18/2017 7:28 AM Dictated Date/Time: 07/18/2017 7:26 AM
[2017-07-18 07:53] VITALS: BP 107/58; PULSE 65; TEMP 36.8; O2SAT 95
[2017-07-18 08:14] VITALS: O2SAT 95
[2017-07-18] MEDS: DOCUSATE SODIUM 100 MG CAP PO SCH ×2 (08:35→20:51)
[2017-07-18] MEDS: GLIMEPIRIDE 2 MG TAB PO SCH (08:36)
[2017-07-18] MEDS: METFORMIN HCL 500 MG TAB PO SCH ×2 (08:37→17:52)
[2017-07-18] MEDS: CHLORTHALIDONE 25 MG TAB PO SCH (08:38)
[2017-07-18] MEDS: CHOLECALCIFEROL 1000 INTER.UNIT TAB PO SCH (08:38)
[2017-07-18] MEDS: LOSARTAN POTASSIUM 50 MG TAB PO SCH (08:39)
[2017-07-18] MEDS: CEROVITE ADV FORMULA TAB PO SCH (08:40)
[2017-07-18] MEDS: INSULIN ASPART 100 UNITS/ML 3 ML PEN SC SCH ×4 (08:44→20:55)
[2017-07-18] MEDS ORDERED: ESCITALOPRAM OXALATE 10 MG TAB PO SCH (09:00)
--- NOTE | 2017-07-18 10:40 | DIAGNOSTIC IMAGING REPORT ---
CHEST ONE VIEW PORTABLE CLINICAL HISTORY: pneumothorax COMPARISON STUDY: 07/18/2017 FINDINGS: The cardiac and mediastinal contours remain stable. There is a right basilar chest tube. There has been interval decrease in the size of the right pneumothorax. This is an apical pleural separation of 11 mm, and a decrease basilar component which is difficult to accurately measure. There is no focal pulmonary consolidation. There are no significant pleural effusions. There is no failure.[ IMPRESSION: Interval decrease in the size of the right pneumothorax. Electronically signed by: Cuba Wynn M.D. 07/18/2017 10:39 AM Dictated Date/Time: 07/18/2017 10:36 AM
[2017-07-18] MEDS ORDERED: NURSING DECISION MEDICATION ORDER SCH (11:15)
[2017-07-18 11:49] VITALS: BP 101/55; PULSE 70; TEMP 36.7; O2SAT 97
--- NOTE | 2017-07-18 11:51 | SURGERY PROGRESS NOTE ---
DATE: 07/18/2017 DATE: 07/18/2017 Fatoumata Nathan was seen today on 07/18/2017. I inserted a PleurX catheter in her yesterday for hydropneumothorax. She looked much better radiographically and I saw her this morning, she looks good with saturations in the low 90s on room air; however, her x-ray shows she had an increased amount of air in the form of a pneumothorax. I then manipulated her tube and could see that she had a small piece of fibrin occluding the tip of the tube and I dislodged this and she had some air come out and her repeat x-ray looked much better with a very small pneumothorax. I believe this patient has a problem with "space" in her right chest after the bilobectomy. I am going to probably switch her over to just q. day drainage with the PleurX catheter tomorrow and let her go home. I am going to keep her on suction tonight and we will see how her x-ray looks in the morning. MTDDiya
[2017-07-18 15:26] VITALS: BP 105/58; PULSE 68; TEMP 36.4; O2SAT 97
[2017-07-18] MEDS: SIMVASTATIN 40 MG TAB PO SCH (20:50)
[2017-07-18] MEDS: ENOXAPARIN 40 MG/0.4 ML SYR SQ SCH (20:51)
[2017-07-18] MEDS: ESCITALOPRAM OXALATE 10 MG TAB PO SCH (20:51)
[2017-07-18 23:02] VITALS: BP 143/67; PULSE 72; TEMP 36.6; O2SAT 93
[2017-07-19 07:10] VITALS: BP 123/57; PULSE 61; TEMP 36.4; O2SAT 93
--- NOTE | 2017-07-19 07:10 | DIAGNOSTIC IMAGING REPORT ---
CHEST ONE VIEW PORTABLE CLINICAL HISTORY: Pneumothorax. COMPARISON STUDY: Chest radiograph July 18, 2017 10:13 AM. FINDINGS: A right basilar pleural catheter remains in place. A right pneumothorax has increased in size since prior exam. This pneumothorax is likely at least moderate in size with superior pleural separation of 4.5 cm with basilar component noted. Mild opacity within the right lung is noted. There is no left pneumothorax. Cardiomediastinal silhouette is stable. Postoperative findings within the right shoulder are incidentally noted. IMPRESSION: Increase in size of a right pneumothorax with right pleural catheter in place. Right pneumothorax likely at least moderate in size. Electronically signed by: Jordan Conner M.D. 07/19/2017 7:08 AM Dictated Date/Time: 07/19/2017 7:05 AM
[2017-07-19] MEDS: LOSARTAN POTASSIUM 50 MG TAB PO SCH (07:47)
[2017-07-19] MEDS: METFORMIN HCL 500 MG TAB PO SCH ×2 (07:47→18:21)
[2017-07-19] MEDS: DOCUSATE SODIUM 100 MG CAP PO SCH ×3 (07:47→18:27)
[2017-07-19] MEDS: CEROVITE ADV FORMULA TAB PO SCH (07:47)
[2017-07-19] MEDS: CHOLECALCIFEROL 1000 INTER.UNIT TAB PO SCH (07:48)
[2017-07-19] MEDS: GLIMEPIRIDE 2 MG TAB PO SCH (07:48)
[2017-07-19] MEDS: CHLORTHALIDONE 25 MG TAB PO SCH (07:49)
[2017-07-19] MEDS: INSULIN ASPART 100 UNITS/ML 3 ML PEN SC SCH ×4 (08:00→21:00)
--- NOTE | 2017-07-19 09:30 | DIAGNOSTIC IMAGING REPORT ---
CHEST ONE VIEW PORTABLE CLINICAL HISTORY: Pneumothorax. COMPARISON STUDY: Chest radiograph July 19, 2017 at 5:41 AM. FINDINGS: A right basilar pleural catheter remains in place. A moderate to large right pneumothorax has increased in size since prior exam. There is no left pleural effusion. Mild right lung airspace opacity is noted. Cardiac size is normal. Mediastinal contours are unremarkable. IMPRESSION: Interval increase in size of a moderate to large right pneumothorax with right basilar pleural catheter in place. Electronically signed by: Jordan Conner M.D. 07/19/2017 9:29 AM Dictated Date/Time: 07/19/2017 9:27 AM
[2017-07-19] MEDS: AMOXICILLIN/CLAVULANATE TAB 875 MG TAB PO SCH ×2 (10:02→18:21)
--- NOTE | 2017-07-19 11:38 | SURGERY PROGRESS NOTE ---
DATE: 07/19/2017 DATE: 07/19/2017 was seen this morning. Her film from earlier this morning showed she still has the basilar and apical pneumothorax. I disconnect her from suction as it did not appear to be working properly again due to fibrin debris and then I suctioned her with a suction kit and got out about 50 mL of serous fluid. Chest x-ray showed the pneumothorax appeared to be if anything a bit larger; however, it is much improved since admission and we really have drained all the fluid. At this point, we are going to drain her every 12 hours. In addition, she had some sero-bloody sputum production while I was in the room and I am going to start her on Augmentin. We will check a chest x-ray in the morning.
[2017-07-19 15:20] VITALS: BP 99/53; PULSE 89; TEMP 36.8; O2SAT 95
[2017-07-19] MEDS: ENOXAPARIN 40 MG/0.4 ML SYR SQ SCH (21:40)
[2017-07-19] MEDS: ESCITALOPRAM OXALATE 10 MG TAB PO SCH (21:42)
[2017-07-19] MEDS: SIMVASTATIN 40 MG TAB PO SCH (21:42)
[2017-07-19 23:00] VITALS: BP 146/55; PULSE 72; TEMP 36.7; O2SAT 93
[2017-07-20] MEDS ORDERED: AMOX1TAB43 PO (06:51)
--- NOTE | 2017-07-20 06:56 | Discharge Instructions ---
Discharge Instructions Date of Service Jul 20, 2017. Admission Reason for Admission: Pleural Effusion Discharge Discharge Diagnosis / Problem: post-operative hydropneumothorax Discharge Goals Goal(s): Improve disease control (Home care will drain the pleurx catheter.) Activity Recommendations Activity Limitations: as noted below Lifting Limitations: gradually increase as tolerated Exercise/Sports Limitations: as tolerated May Resume Sexual Activity: when tolerated Shower/Bathe: keep incision dry Driving or Machine Use: No driving until I see you in office. Do not get dressing wet! . Instructions / Follow-Up Instructions / Follow-Up Return to office 07-22-17 as already scheduled. Obtain a chest x-ray before I see you the day. Home care will change your dressing. Current Hospital Diet Patient's current hospital diet: Diabetes Type 2 Diet Discharge Diet Recommended Diet: Diabetes Type 2 Diet Procedures Procedures Performed: Insertion of pleurx catheter. Pending Studies Studies pending at discharge: no Laboratory Results Hemoglobin A1c Test 07/12/17 05:50 Range/Units Estimated Average Glucose 151 mg/dl Hemoglobin A1c 6.9 H 4.5-5.6 % Medical Emergencies . Who to Call and When: Medical Emergencies: If at any time you feel your situation is an emergency, please call 911 immediately. . Non-Emergent Contact Non-Emergency issues call your: Surgeon Call Non-Emergent contact if: temperature is above 101.5, wound has increased drainage, wound has increased redness, wound has increased pain [phone] Dr Covington's cell number. . "Provider Documentation" section prepared by Fazal Covington. . VTE Core Measure Inpt VTE Proph given/why not?: Enoxaparin (Lovenox)SQ
[2017-07-20 07:00] VITALS: BP 141/57; PULSE 65; TEMP 36.5; O2SAT 94
[2017-07-20 07:08] LABS: HEMATOCRIT 31.1 % (37-47); MEAN CELL VOLUME 90.7 fL (80-100); MEAN CORPUSCULAR HEMOGLOBIN 32.4 pg (25-34); MEAN CORPUSCULAR HGB CONC 35.7 g/dl (32-36); MEAN PLATELET VOLUME 8.4 fL (7.4-10.4); PLATELET COUNT 521 K/uL (130-400); RED BLOOD COUNT 3.43 M/uL (4.2-5.4); WHITE BLOOD COUNT 6.94 K/uL (4.8-10.8)
--- NOTE | 2017-07-20 07:22 | DIAGNOSTIC IMAGING REPORT ---
CHEST ONE VIEW PORTABLE HISTORY: 77 years-old Female Please do at time requested follow-up study to assess right-sided pneumothorax COMPARISON: Chest radiograph 07/19/2017 at 9:09 AM TECHNIQUE: Portable AP view of the chest FINDINGS: Right-sided chest tube is again seen terminating at the level the right lung base. Moderate to large right-sided pneumothorax is unchanged with visceral pleural separation of 4.9 cm, previously 5.1 cm. Mild right midlung airspace opacities redemonstrated. Cardiac silhouette is within normal limits. Left lung is generally clear. Cannulated screws of the right humeral head are noted. Degenerative changes of the shoulders and spine. IMPRESSION: Unchanged positioning of right-sided chest tube with stable moderate to large right-sided pneumothorax. The above report was generated using voice recognition software. It may contain grammatical, syntax or spelling errors. Electronically signed by: David Solis M.D. 07/20/2017 7:21 AM Dictated Date/Time: 07/20/2017 7:19 AM
[2017-07-20 07:38] LABS: CREATININE 0.84 mg/dl (0.60-1.20)
--- NOTE | 2017-07-20 08:10 | DISCHARGE SUMMARY ---
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 HOSPITAL COURSE: Fatoumata Nathan is a very nice 77-year-old is an active cigarette smoker up until the time of her surgery, about 10 days ago. She also has a history of diabetes. She is found to have collapse of her right middle lobe and back on 07/11/2017 I did a thoracoscopic right middle and lower bilobectomy. 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 We are presenting her at our cancer conference on 07/22/2017. The patient presented to the office for routine followup on 07/17/2017, and I was surprised to see that she had a hydropneumothorax. I brought her to the medical treatment unit and placed a PleurX catheter and we drained 700 mL of fluid. Her lung expanded fairly nicely, although not completely. There is a space problem with this patient as we took 2 lobes out. At any rate, I was disappointed to see that despite being on suction overnight, her pneumothorax had gotten larger on 07/18/2017. I cleaned fibrin off the end of this catheter and she looked better radiographically. The patient then started coughing up a small amount of bloody sputum, which was a bit thickened. I put her on Augmentin at that time. She had no fevers and no chills and her saturations are good and she was ambulating in the hallway. We continued to drain scant amount of fluid and we had drained all of the fluid radiographically. The fluid is benign without evidence of infection. Despite the fact that her pneumothorax was still present, I elected to discharge her. I believe this air leak is from the parenchymal issue and I believe that once that this will settle down. As long as there is no fluid chance of infection, she is clinically stable and I will allow her to be discharged. I had a long discussion with the patient and her sister and explained that one option would be to put a traditional chest tube; however, that is going to be painful and keep her in the hospital. Another option would be to return to the operating room for a thoracoscopy; however, I feel that is too aggressive. At this point, we will allow her to be discharged. Her PleurX site is clean. Home care will be draining this on a daily basis. I will see her back in the office in 48 hours with a chest x-ray.
[2017-07-20] MEDS: METFORMIN HCL 500 MG TAB PO SCH (08:41)
[2017-07-20] MEDS: CHOLECALCIFEROL 1000 INTER.UNIT TAB PO SCH (08:41)
[2017-07-20] MEDS: DOCUSATE SODIUM 100 MG CAP PO SCH (08:41)
[2017-07-20] MEDS: CEROVITE ADV FORMULA TAB PO SCH (08:41)
[2017-07-20] MEDS: AMOXICILLIN/CLAVULANATE TAB 875 MG TAB PO SCH (08:41)
[2017-07-20] MEDS: GLIMEPIRIDE 2 MG TAB PO SCH (08:42)
[2017-07-20] MEDS: LOSARTAN POTASSIUM 50 MG TAB PO SCH (08:43)
[2017-07-20] MEDS: CHLORTHALIDONE 25 MG TAB PO SCH (08:43)
[2017-07-20] MEDS: INSULIN ASPART 100 UNITS/ML 3 ML PEN SC SCH (08:44)
[2017-07-20 10:10] VITALS: BP 141/57; PULSE 65; TEMP 36.5; O2SAT 94
--- NOTE | 2017-07-21 07:54 | SURGERY PROGRESS NOTE ---
DATE: 07/19/2017 Jac was seen today. She looks and feels well. She has very little pain. Her operative site had a tube. Saturations were 93% on room air and she has been ambulating multiple times in the hallway. She is eating well. She is making good urine. She did have a bit of a cough with some thickened sputum with some blood. This may be due to surgery; however, I am going to start her on Augmentin. I disconnected her chest tube from her drainage and suctioned some fluid from her chest. I repeated a chest x-ray and it appears to be better to me. I am going to continue her off of the Adriane and we are going to drain her twice a day with the PleurX. We will check a chest x-ray in the morning and see how she looks. It is possible we can send her home then. FAUSTINO
== END 2017-07-20 11:54 | disposition home health service (06) | DRG 200 ==
LOC: C.ACU 16:17 → C.MSN 17:23 → ENRESERV 17:37
PROVIDERS: ADMIT Surgery; ATTEND Surgery
PROC: 0B9N30Z Drainage of Right Pleura with Drainage Device, Percutaneous Approach (ICD-10-PCS; principal; 2017-07-17 15:01)
DX: J95.811 Postprocedural pneumothorax (principal); C34.2 Malignant neoplasm of middle lobe, bronchus or lung; C77.1 Secondary and unspecified malignant neoplasm of intrathoracic lymph nodes; Z90.2 Acquired absence of lung [part of]; F17.210 Nicotine dependence, cigarettes, uncomplicated; E11.9 Type 2 diabetes mellitus without complications

== ENCOUNTER → 2017-07-17 | Outpatient (CLI) | payer OTHER ==
[~2017-07-17] MED LIST changes: +AMOX1TAB43 PO; +CLC100 PO; -LCTX PO; +TRAM-10 PO
--- NOTE | 2017-07-17 14:22 | DIAGNOSTIC IMAGING REPORT ---
CHEST 2 VIEWS ROUTINE HISTORY: 77 years-old Female LUNG MASS follow-up study in a patient with prior lobectomy COMPARISON: PET CT 06/18/2017, chest radiograph 07/14/2017 TECHNIQUE: PA and lateral views of the chest FINDINGS: Moderate sized hydropneumothorax is present on the right with visceral pleural separation at the level of the right lung apex measuring up to 2.8 cm. Suture material seen at the level the right hilum. Atherosclerosis of the aorta. Upper lobe predominant emphysematous changes are noted with unchanged interstitial coarsening. Bones appear grossly intact. Post surgical changes of the right humeral head. IMPRESSION: Moderate right-sided hydropneumothorax has developed in the interval suspicious for bronchopleural fistula. The above report was generated using voice recognition software. It may contain grammatical, syntax or spelling errors. Electronically signed by: David Solis M.D. 07/17/2017 2:20 PM Dictated Date/Time: 07/17/2017 2:16 PM
== END | disposition home or self-care (01) ==
LOC: C.RAD1850 14:01
PROVIDERS: ATTEND Surgery
DX: J94.8 Other specified pleural conditions (principal); Z90.2 Acquired absence of lung [part of]

== ENCOUNTER → 2017-07-24 | Outpatient (CLI) | payer OTHER ==
[~2017-07-24] MED LIST changes: +AMOX1TAB43 PO
--- NOTE | 2017-07-24 09:27 | DIAGNOSTIC IMAGING REPORT ---
TWO VIEW CHEST CLINICAL HISTORY: Pleural effusion. FINDINGS: PA and lateral chest radiographs are compared to study dated 07/20/2017. Correlation is made with chest CT dated 07/04/2017. The PA view is degraded by patient rotation. The heart is top normal for projection and there is atherosclerotic calcification of the thoracic aorta. A pleural drain is again seen at the right lung base. A moderate to large right pneumothorax persists, with apical and basilar components. The trachea is midline. Trace pleural fluid is again seen at the right lung base. The left lung appears clear emphysema and chronic residual thickening are similar to previous. The skeletal structures are osteopenic. The bony thorax appears intact. Surgical anchors are noted in the right humeral head. IMPRESSION: 1. A moderate to large right-sided pneumothorax persists with both basilar and apical components. This is similar appearance to 07/20/2017 examination. 2. A pleural drain is again seen at the right lung base. Only trace right pleural fluid remains. 3. The left lung appears clear. 4. Emphysema. Electronically signed by: Tylor Galvan M.D. 07/24/2017 9:26 AM Dictated Date/Time: 07/24/2017 9:23 AM
--- NOTE | 2017-07-24 10:43 | DIAGNOSTIC IMAGING REPORT ---
TWO VIEW CHEST CLINICAL HISTORY: Pneumothorax. Status post pleural fluid drainage through the chest tube by the surgeon. FINDINGS: PA and lateral chest radiographs are compared to study performed earlier the same day 07/24/2017. Correlation is made with chest CT dated 07/04/2017. The PA view is degraded by patient rotation. The heart is top normal for projection and there is atherosclerotic calcification of the thoracic aorta. A pleural drain is again seen at the right lung base. There is at least a moderate persistent right-sided pneumothorax. The basilar component has a most completely resolved from earlier today. The trachea is midline. Trace pleural fluid is again seen at the right lung base. The left lung appears clear. Emphysema and chronic residual thickening are similar to previous. The skeletal structures are osteopenic. The bony thorax appears intact. Surgical anchors are noted in the right humeral head. IMPRESSION: 1. There is at least a moderate persistent right-sided pneumothorax. The basilar component has a most completely resolved from earlier today. 2. A pleural drain is again seen at the right lung base. Only trace right pleural fluid remains. 3. The left lung appears clear. 4. Emphysema. Electronically signed by: Tylor Galvan M.D. 07/24/2017 10:41 AM Dictated Date/Time: 07/24/2017 10:40 AM
--- NOTE | 2017-07-25 13:08 | SURGERY PROGRESS NOTE ---
DATE: 07/24/2017 SUBJECTIVE: Fatoumata Nathan was seen on 07/24/2017. The patient has a hydropneumothorax with a very small air leak. I then put a regular chest tube and then took her back to the operating room after her bilobectomy. I placed a PleurX catheter and then discharge her a few days ago. I asked her to see her back today. She came over for an x-ray. I could see that a pneumothorax was present, although not quite as big, but she did have some fluid. She has not been drained since yesterday from a PleurX catheter. For this reason, I used a PleurX catheter and sterilely attached this vacuum bottle to the PleurX catheter and drained about 250 mL of serous fluid. We also got some air. She also had reexpansion pain, which really is the first time I have seen this. I repeated her x-ray and a basilar pneumothorax was essentially gone. We drained all the fluid. She still had an apical pneumo, but this was much improved. I had a long talk with Ms. Natahn today. I think she has done quite well despite this problem with her hydropneumothorax. A case could be made to put a regular chest tube and admitted her to the hospital; however, I think this is painful and I do not think I would offer this to her. In addition, we can take her back to the operating room; however, I think that is too aggressive. She appears to be improving with the current therapy and I think we should continue this. She understands of the different options and the risks and benefits of each. We are going to proceed with this as an outpatient and I will see her back next week in the office.
== END | disposition home or self-care (01) ==
LOC: C.RAD 09:09
PROVIDERS: ATTEND Surgery
DX: J90 Pleural effusion, not elsewhere classified (principal); Z90.2 Acquired absence of lung [part of]; J93.9 Pneumothorax, unspecified; Z97.8 Presence of other specified devices; J43.9 Emphysema, unspecified

== ENCOUNTER → 2017-07-29 | Outpatient (CLI) | payer OTHER | END | disposition home or self-care (01) | LOC: C.PATHSPEC 16:59 | PROVIDERS: ATTEND Surgery | DX: J90 Pleural effusion, not elsewhere classified (principal); R91.1 Solitary pulmonary nodule ==

== ENCOUNTER → 2017-07-29 | Outpatient (CLI) | payer OTHER ==
--- NOTE | 2017-07-29 10:07 | DIAGNOSTIC IMAGING REPORT ---
CHEST 2 VIEWS ROUTINE HISTORY: Postop. LUNG MASS COMPARISON: Chest 07/24/2017. FINDINGS: There is again noted a moderate right hydropneumothorax. The pneumothorax component has slightly decreased in size and now demonstrates a maximal apical pleural gap of 4.4 cm. The basilar fluid component has slightly progressed. Right basilar chest tube is unchanged in position. The left lung is clear. The heart is normal in size. No mediastinal shift. IMPRESSION: 1. Moderate right hydropneumothorax. The pneumothorax component has slightly decreased in size and the fluid component has slightly increased in size. 3. The right-sided chest tube is unchanged in position. Electronically signed by: James Villarreal M.D. 07/29/2017 10:05 AM Dictated Date/Time: 07/29/2017 10:03 AM
== END | disposition home or self-care (01) ==
LOC: C.RAD1850 09:50
PROVIDERS: ATTEND Surgery
DX: J94.8 Other specified pleural conditions (principal)

== ENCOUNTER → 2017-08-07 | Outpatient (CLI) | payer OTHER ==
--- NOTE | 2017-08-07 09:42 | DIAGNOSTIC IMAGING REPORT ---
CHEST 2 VIEWS ROUTINE CLINICAL HISTORY: PLEURAL EFFUSION dyspnea COMPARISON STUDY: 07/29/2017 FINDINGS: Right apical hydropneumothorax demonstrated a mild increase in fluid accumulation compared to the prior study. Overall volume is similar. Right basilar chest drainage tube is unchanged in appearance. There is a small right effusion considered unchanged as well. Left lung is considered clear. IMPRESSION: Right apical hydropneumothorax showing no significant change in volume although a moderate increase in fluid component is noted. Unchanging right basilar pleural effusion. The above report was generated using voice recognition software. It may contain grammatical, syntax or spelling errors. Electronically signed by: Daniel Higgins M.D. 08/07/2017 9:41 AM Dictated Date/Time: 08/07/2017 9:39 AM
== END | disposition home or self-care (01) ==
LOC: C.RAD1850 09:29
PROVIDERS: ATTEND Surgery
DX: J90 Pleural effusion, not elsewhere classified (principal); J94.2 Hemothorax

== ENCOUNTER → 2017-08-14 | Outpatient (CLI) | payer OTHER ==
--- NOTE | 2017-08-14 13:58 | DIAGNOSTIC IMAGING REPORT ---
CHEST 2 VIEWS ROUTINE HISTORY: 77 years-old Female J90 Pleural [id number] follow-up study in a patient with pleural effusion. COMPARISON: Chest radiograph 08/07/2017 TECHNIQUE: PA and lateral views of the chest FINDINGS: Right-sided hydropneumothorax is again seen with visceropleural separation of 3.3 cm, unchanged. Minimal subsegmental right basilar opacities are noted suggesting compressive atelectasis. There has been interval removal of the previously noted right-sided pleural drainage catheter. The amount of fluid within the right pleural cavity has slightly increased. The left lung is generally clear. The cardiac silhouette is within normal limits. Atherosclerosis of the aorta. No left-sided pneumothorax or pleural effusion. Postoperative changes of the right humeral head greater tuberosity. Small air-fluid levels of the right upper abdomen are noted, likely incidental. IMPRESSION: Status post removal of right-sided pleural drainage catheter with persistent right-sided hydropneumothorax. The degree of pleural fluid within the right hemithorax has slightly increased in size from comparison. The pneumothorax appears unchanged. The above report was generated using voice recognition software. It may contain grammatical, syntax or spelling errors. Electronically signed by: David Solis M.D. 08/14/2017 1:57 PM Dictated Date/Time: 08/14/2017 1:53 PM
== END | disposition home or self-care (01) ==
LOC: C.RAD1850 13:42
PROVIDERS: ATTEND Surgery
DX: J90 Pleural effusion, not elsewhere classified (principal)

== ENCOUNTER → 2017-08-19 | Outpatient (CLI) | payer OTHER ==
[~2017-08-19] MED LIST changes: +GADAVIST IV PRN
--- NOTE | 2017-08-19 12:55 | DIAGNOSTIC IMAGING REPORT ---
BRAIN COMBO CLINICAL HISTORY: LUNG CA MIDDLE LOBE COMPARISON STUDY: No previous studies for comparison. TECHNIQUE: Utilizing a 1.5 Gabrielle magnet and dedicated coil, multiplanar, multiecho imaging of the brain was performed pre and postcontrast administration. IV administration of 9.5 mL of Gadavist contrast was uneventful. FINDINGS: Diffusion-weighted images are negative for an acute ischemic event. Coronal FLAIR images show foci of chronic ischemic change posterior cortical left occipital lobe and to a lesser extent right. There is minimal chronic small vessel change of aging. Mild age-related cerebral atrophy is present. Ventricular system is midline. Postcontrast images are considered negative for an enhancing lesion. IMPRESSION: No acute process. Chronic small vessel changes unremarkable for age. The above report was generated using voice recognition software. It may contain grammatical, syntax or spelling errors. Electronically signed by: Daniel Higgins M.D. 08/19/2017 12:53 PM Dictated Date/Time: 08/19/2017 12:49 PM
== END | disposition home or self-care (01) ==
PROVIDERS: ATTEND Internal Medicine Hematology
DX: C34.2 Malignant neoplasm of middle lobe, bronchus or lung (principal)

== ENCOUNTER → 2017-09-05 | Outpatient (CLI) | payer OTHER ==
[~2017-09-05] MED LIST changes: -GADAVIST IV PRN
--- NOTE | 2017-09-05 09:44 | DIAGNOSTIC IMAGING REPORT ---
CHEST 2 VIEWS ROUTINE CLINICAL HISTORY: Collapse of right lung. COMPARISON STUDY: Chest radiograph August 14, 2017. FINDINGS: Incidental note is made of postoperative findings within the right shoulder. A right apical hydropneumothorax is again noted. The amount of pleural gas has markedly diminished since exam of August 14, 2017. A moderate right pleural effusion persists. Otherwise, the appearance of the chest is unchanged. There is no evidence for pulmonary edema. Cardiac size is stable. There is no left pneumothorax. IMPRESSION: Redemonstration of a right hydropneumothorax. Near complete resolution of pleural gas since exam of August 14, 2017 with a persistent moderate right pleural effusion. Electronically signed by: Jordan Conner M.D. 09/05/2017 9:43 AM Dictated Date/Time: 09/05/2017 9:40 AM
== END | disposition home or self-care (01) ==
LOC: C.RAD1850 09:30
PROVIDERS: ATTEND Physician Assistant
DX: J98.11 Atelectasis (principal)

== ENCOUNTER → 2017-11-10 | Outpatient (CLI) | payer OTHER ==
[~2017-11-10] MED LIST changes: +OPTIRAY 320 IV PRN
--- NOTE | 2017-11-10 08:59 | DIAGNOSTIC IMAGING REPORT ---
CT (CHEST) THORAX WITH CLINICAL HISTORY: 77 years-old Female presenting with LUNG CA MIDDLE LOBE, status post resection, possible right malignant pleural effusion, on immunotherapy. TECHNIQUE: Multidetector CT imaging of the chest was performed after the administration of intravenous contrast. IV contrast: 110 mL of Optiray 320. A dose lowering technique was used consistent with the principles of ALARA (as low as reasonably achievable). COMPARISON: 07/04/2017. CT DOSE (mGy.cm): The estimated cumulative dose is 165.05 mGycm. FINDINGS: [employer] topogram: Postsurgical changes of the right lung. On soft tissue windows, normal thyroid and thoracic inlet. No axillary, supraclavicular, hilar, or mediastinal lymphadenopathy. Atherosclerosis of the aorta. Normal heart size. Coronary artery calcification. Small pericardial effusion with suggestion of subtle pericardial enhancement (series 4 image 210). Small right pleural effusion with significant pleural thickening and enhancement. The effusion appears loculated and contains multiple foci of gas. This is new from the prior exam. Focal peripheral hyperenhancing lesion in the medial left hepatic lobe with adjacent perfusional change consistent with a flash filling hemangioma and transient hepatic attenuation difference. Well-defined hypodense lesion at the left hepatic dome consistent with hepatic cyst. Additional flash filling hemangiomas may be present in segments 2/4 A, 8 and 6. Multiple renal cysts noted. On lung windows, mild emphysema noted throughout the lungs. Multiple lung nodules with an upper lobe predominance as on prior exam. These are irregular in shape and without central cystic change these have not changed from prior exam. These nodules measure up to 3 mm. Postsurgical changes of right middle and lower lobectomies. Minimal groundglass opacity surrounding a focal site of cystic change in the anterior right upper lobe is stable in appearance. Central airways patent. On bone windows, degenerative changes of the spine. IMPRESSION: 1. Postsurgical changes of interval right middle and lower lobectomies. 2. Pleural thickening with a loculated right hydropneumothorax. This raises concern for metastatic disease or infection. 3. Small pericardial effusion with suggestion of pericardial enhancement. This further raises concern for metastatic disease. 4. Numerous upper lobe predominant irregular nodules measuring up to 3 mm grossly unchanged from prior. These could relate to smoking related lung injury (either respiratory bronchiolitis or more likely pulmonary Langerhans cell histiocytosis) or represent small pulmonary nodules of another benign or malignant etiology. Continued follow-up recommended. 5. Emphysema. 6. No lymphadenopathy. The report will be called/faxed according to standard departmental protocol. Electronically signed by: Fili Garcia M.D. 11/10/2017 8:57 AM Dictated Date/Time: 11/10/2017 8:45 AM
== END | disposition home or self-care (01) ==
LOC: C.CTS 08:24
PROVIDERS: ATTEND Internal Medicine Hematology
DX: C34.2 Malignant neoplasm of middle lobe, bronchus or lung (principal); J94.2 Hemothorax; I31.3 Pericardial effusion (noninflammatory); R91.8 Other nonspecific abnormal finding of lung field; J43.9 Emphysema, unspecified

== ENCOUNTER → 2017-11-27 | Outpatient (CLI) | payer OTHER ==
[~2017-11-27] MED LIST changes: -OPTIRAY 320 IV PRN
== END | disposition home or self-care (01) ==
LOC: C.LABBC 13:38
PROVIDERS: ATTEND Internal Medicine Endocrinology, Diabetes & Metabolism
DX: R94.6 Abnormal results of thyroid function studies (principal)

== ENCOUNTER → 2017-12-23 | Outpatient (CLI) | payer OTHER ==
--- NOTE | 2017-12-23 11:09 | DIAGNOSTIC IMAGING REPORT ---
CHEST 2 VIEWS ROUTINE HISTORY: R91.8 Lung mass COMPARISON: Chest CT 11/10/2017. Chest x-ray 09/05/2017. FINDINGS: Right-sided pneumothorax has resolved. Small loculated right pleural effusion remains unchanged. Stable volume loss within the right hemithorax due to postoperative changes. Suture material within the right hilum. No new focal lung consolidations. The heart is normal in size. Postoperative changes within the right shoulder. IMPRESSION: 1. Interval resolution of the right-sided pneumothorax. 2. Postoperative changes within the right hemithorax and a small loculated right pleural effusion persist. Electronically signed by: James Villarreal M.D. 12/23/2017 11:08 AM Dictated Date/Time: 12/23/2017 11:05 AM
== END | disposition home or self-care (01) ==
LOC: C.LABBC 09:40
PROVIDERS: ATTEND Internal Medicine Pulmonary Disease
DX: R91.8 Other nonspecific abnormal finding of lung field (principal)

== ENCOUNTER → 2018-03-09 | Outpatient (CLI) | payer OTHER ==
[~2018-03-09] MED LIST changes: -TRAM-10 PO
--- NOTE | 2018-03-10 15:23 | MAMMOGRAPHY REPORT ---
BILATERAL DIGITAL SCREENING MAMMOGRAM TOMOSYNTHESIS WITH CAD: 03/09/2018 CLINICAL HISTORY: Routine screening. Patient has no complaints. TECHNIQUE: The study was acquired using full field digital technology and interpreted from soft copy. Breast tomosynthesis in addition to standard 2D mammography was performed. Current study was also ev aluated with a Computer Aided Detection (CAD) system. COMPARISON: Comparison is made to exams dated: 03/05/2017 mammogram, 03/01/2016 mammogram, 02/27/2015 m ammogram, 02/24/2014 mammogram, 02/22/2013 mammogram, and 02/19/2011 mammogram - [facility] enter. BREAST COMPOSITION: The tissue of both breasts is extremely dense, which lowers the sensitivity of ma mmography. FINDINGS: 2 linear scar markers overlie the right breast. There are scattered benign coarse calcific ations. No suspicious mass, architectural distortion or cluster of microcalcifications is seen. IMPRESSION: ACR BI-RADS CATEGORY 1: NEGATIVE There is no mammographic evidence of malignancy. A 1 year screening mammogram is recommended.( 019) The patient will receive written notification of the results. Some breast cancers are not detected with mammography. A negative mammographic report should not deon y biopsy if a clinically suggestive mass is present. Violeta Payne M.D. ay/:03/09/2018 20:30:10 [employer]pper: Sadie Rowell, [facility] letter sent: Normal 1/2 BI-RADS Code: ACR BI-RADS Category 1: Negative
== END | disposition home or self-care (01) ==
LOC: C.MAMM 08:45
PROVIDERS: ATTEND Internal Medicine
DX: Z12.31 Encounter for screening mammogram for malignant neoplasm of breast (principal)

== ENCOUNTER 2018-08-11 22:01 | Inpatient (IN) ==
[~2018-08-11 22:01] MED LIST changes: -AMOX1TAB43 PO; -CEFU1TAB36 PO; -CHOL1000 PO; -CLC100 PO; -DOXY100C76 PO; -ESCI1TAB6 PO; +ETOMIDATE 2 MG/ML 20 ML VIAL IV ONE; -GLIM1TAB2 PO; -HYDR5SYP11 PO; -HYG/25 PO; -LOSA1TAB38 PO; -METF-384 PO; -MULT-513 PO; +ROCURONIUM BROMIDE 10 MG/ML 5 ML VIAL IV ONE; -SIMV40TA2 PO
[2018-08-11 22:17] LABS: Hematocrit (blood only) 34.5 % (37-47); Hemoglobin 10.9 g/dL (12.0-16.0); Mean Corpuscular Hgb Conc 31.6 g/dL (32-36); Mean Corpuscular Volume 93.8 fL (80-100); Mean Platelet Volume 9.9 fL (7.4-10.4); Platelet Count 291 K/uL (130-400); RDW Coefficient of Variation 13.9 % (11.5-14.5); RDW Standard Deviation 47.7 fL (36.4-46.3); Red Blood Count 3.68 M/uL (4.2-5.4)
[2018-08-11] MEDS ORDERED: OPTIRAY 320 125ml IV PRN (22:19)
[2018-08-11 22:30] LABS: Partial Thromboplastin Ratio 0.9; Partial Thromboplastin Time 22.2 Seconds (21.0-31.0); Prothrombin Time 9.8 Seconds (9.0-12.0)
[2018-08-11 22:35] LABS: Alanine Aminotransferase 26 U/L (12-78); Albumin Level 3.5 gm/dl (3.4-5.0); Aspartate Aminotransferase 28 U/L (15-37); BUN Creatinine Ratio 19.6 (10-20); Blood Urea Nitrogen 27 mg/dl (7-18); Calcium 8.5 mg/dl (8.5-10.1); Carbon Dioxide 16 mmol/L (21-32); Chloride 108 mmol/L (98-107); Est GFR (African American) 42.6; Est GFR (Non-African American) 36.7; Glucose 209 mg/dl (70-99); Potassium 3.7 mmol/L (3.5-5.1); Sodium 139 mmol/L (136-145)
[2018-08-11 22:40] LABS: Albumin Globulin Ratio 0.8 (0.9-2); Alkaline Phosphatase 92 U/L (45-117); Bilirubin,Total 0.2 mg/dl (0.2-1); Globulin 4.2 gm/dl (2.5-4.0); Total Protein 7.7 gm/dl (6.4-8.2); Troponin I 0.038 ng/ml (0-0.045)
--- NOTE | 2018-08-11 22:41 | CT Scan Report ---
CT ANGIOGRAPHY OF THE NECK WITH CONTRAST CLINICAL HISTORY: seizure, AMS. Lung cancer. COMPARISON STUDY: No previous studies for comparison. Technique: CT angiography of the carotid and vertebral arteries was obtained using [employer] 320 IV and 3D reconstruction on an independent workstation. NASCET criteria was utilized. Automated exposure c ontrol was utilized for the study. A dose lowering technique was utilized adhering to the principles of ALARA. CT DOSE: 1011.88 mGy.cm Findings: There is moderate plaque within the bilateral common carotid and internal carotid arteries. The proximal left internal carotid artery measures 2.5 cm in caliber. The more distal left internal carotid artery measures 5 mm. This suggests a 50% stenosis. Mild stenosis of the proximal right inter nal carotid artery. There is no evidence for dissection within the major vessels of the neck. The maci ateral vertebral arteries are patent. There is no cervical lymphadenopathy. Postoperative findings wi thin the right hemithorax are partially imaged with right apical pleural fluid which was shown on CT of June 08, 2018. Emphysema and mild interstitial pulmonary edema is noted. Multiple tiny nodular opacities within lungs are again shown as shown on prior CT. No suspicious osseous lesions are noted. There is no cervical spine fracture. IMPRESSION: 1. 50% stenosis of the proximal left internal carotid artery. Mild stenosis of the proximal right int ernal carotid artery. 2. Patent bilateral vertebral arteries. 3. No dissection within the neck. 4. Emphysema and mild interstitial pulmonary edema within visualized portions of the lung apices. Pos toperative findings within the right upper hemithorax. 5. 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 Electronically signed by: Jordan Conner M.D. 08/11/2018 10:39 PM
--- NOTE | 2018-08-11 22:44 | CT Scan Report ---
CTA ANGIOGRAPHY OF THE HEAD CLINICAL HISTORY: seizure, AMS COMPARISON STUDY: MRI the brain August 19, 2017. TECHNIQUE: Helical axial images of the head were obtained following uneventful intravenous administr ation of 115 cc of Optiray 320. Automated exposure control was utilized for the study. A dose lower ing technique was utilized adhering to the principles of ALARA. FINDINGS: No acute intracranial hemorrhage, midline shift or mass effect is present. There is moderat e plaque within bilateral cavernous carotids without significant stenosis. The bilateral M1, M2, A1 a nd A2 segments are patent. There is no dissection or abrupt vessel cut off. No intracranial aneurysm is identified. Posterior circulation is intact. IMPRESSION: 1. No abrupt vessel cut off or intracranial aneurysm. 2. Moderate plaque within bilateral cavernous carotids without severe stenosis. Electronically signed by: Jordan Conner M.D. 08/11/2018 10:42 PM
--- NOTE | 2018-08-11 22:44 | CT Scan Report ---
CT OF THE HEAD WITHOUT CONTRAST CLINICAL HISTORY: Stroke evaluation. COMPARISON STUDY: MRI of the brain August 19, 2017. TECHNIQUE: Helical axial images of the head were obtained without IV contrast. Automated exposure con trol was utilized for the study. A dose lowering technique was utilized adhering to the principles o f ALARA. FINDINGS: No acute intracranial hemorrhage, midline shift or mass effect is present. Ventricular syst em is unremarkable. The basilar cisterns are patent. There are no extra-axial collections. Conklin-white differentiation is maintained there are no findings to suggest acute dural sinus thrombosis or acute territorial infarct. There are no significant calvarial abnormalities. There is mild sinus mucosal t hickening. IMPRESSION: No acute intracranial findings. Electronically signed by: Jordan Conner M.D. 08/11/2018 10:43 PM
[2018-08-11] MEDS ORDERED: levETIRAcetam 1,250 MG in DEXTROSE 5% 100 ML IV STA (22:56)
[2018-08-11 23:02] LABS: Basophils # (auto) 0.03 K/uL (0-0.2); Basophils % (auto) 0.3 %; Eosinophils # (auto) 0.02 K/uL (0-0.5); Eosinophils % (auto) 0.2 %; Immature Granulocytes # (auto) 0.03 K/uL (0.00-0.02); Immature Granulocytes % (auto) 0.3 %; Lymphocytes # (auto) 5.85 K/uL (1.2-3.4); Lymphocytes % (auto) 49.6 %; Monocytes # (auto) 1.04 K/uL (0.11-0.59); Monocytes % (auto) 8.8 %; Neutrophils # (auto) 4.83 K/uL (1.4-6.5); Neutrophils % (auto) 40.8 %
[2018-08-11 23:03] LABS: Amphetamines+Metham, Urine Neg (Neg); Barbiturates, Urine Neg (Neg); Benzodiazepine, Urine Neg (Neg); Cocaine, Urine Neg (Neg); MDMA (Ecstacy), Urine Neg (Neg); Methadone, Urine Neg (Neg); Opiate, Urine Neg (Neg); Phencyclidine, Urine Neg (Neg)
[2018-08-11] MEDS ORDERED: LORazepam 2 MG/ML VIAL (IM USE) ONE (23:12)
[2018-08-11] MEDS ORDERED: RAPID SEQUENCE INDUCTION BAG ONE (23:14)
[2018-08-11] MEDS ORDERED: PROPOFOL 1,000 MG/100 ML VIAL IV STA (23:27)
[2018-08-11] MEDS ORDERED: ROCURONIUM BROMIDE 10 MG/ML 10 ML VIAL IV STA (23:27)
[2018-08-11] MEDS ORDERED: ETOMIDATE 2 MG/ML 20 ML VIAL IV ONE (23:27)
[2018-08-11] MEDS ORDERED: PROPOFOL IV EMULSION 10 MG/ML 100 ML VIAL IV ONE (23:27)
[2018-08-11] MEDS ORDERED: SODIUM CHLORIDE 0.9% 1000ML 500 ML IV ONE (23:28)
[2018-08-11 23:40] LABS: iSTAT Hemoglobin 11.2 g/dl (12.0-16.0); iSTAT Ionized Calcium 1.22 mmol/l (1.12-1.32)
[2018-08-11] MEDS ORDERED: SODIUM CHLORIDE 0.9% 1000ML 1,000 ML IV ONE (23:46)
[2018-08-12] MEDS ORDERED: LORazepam 2 MG/4 ML VIAL IV PRN (01:17)
[2018-08-12] MEDS ORDERED: ICU PROTOCOL FOR HYPERGLYCEMIA PRN (01:17)
[2018-08-12] MEDS ORDERED: PROPOFOL 1,000 MG/100 ML VIAL IV SCH (01:17)
[2018-08-12] MEDS ORDERED: METOPROLOL TARTRATE 1 MG/ML VIAL IV PRN (01:17)
[2018-08-12] MEDS ORDERED: fentaNYL citrate 100 MCG/2 ML VIAL IV PRN (01:39)
--- NOTE | 2018-08-12 02:10 | Critical Care Consultation ---
Date of Consultation August 12, 2018 Assessment & Plan (1) Admitted to intensive care unit: Reason Critically Ill: 78-year-old female with acute status epilepticus requiring endotracheal intubation for airway protection secondary to acute hypoxic respiratory failure during seizure episode. NEURO - * CAM ICU: Unable to assess secondary to level of sedation at this point. * Status Epilepticus: * Loaded w/ 1250 mg IV Keppra. * Currently sedated on Propofol s/p intubation. * CT Head, CTA Head/Neck w/ findings only of severe stenosis at the origin of the RIGHT external carotid - question significance. * No seizure-like activity at this point. * Will continue w/ scheduled IV Keppra BID. * Propofol while intubated - plan for early extubation. * Ativan PRN for breakthrough seizure activity. * Seizure precautions in place. * Appreciate Neurology consultation. CARDIAC/VASCULAR - * h/o HTN, HLD: * Continue home Rx when able to tolerate PO * EKG: Sinus Tach@115bpm w/o ST/T-wave changes. QTc 492ms * Monitor on telemetry. RESPIRATORY - * Acute Hypoxic Respiratory Failure: * In the setting of active seizure. * Required Intubation. * Vent Settings: AC/16/400/5/50% - will wean down as tolerated. * Plan for early extubation. * h/o Non-small cell lung carcinoma s/p RIGHT upper and lower lobectomy. GI/NUTRITION - * NPO at this time. * OG in place. * Prophylaxis: Protonix RENAL/LYTES - * SASHA: * Will recheck s/p IVF. * Recheck Lytes - replace appropriately. * IVF: NSS@100mL/hr - * Arguelles in place - Strict I&Os. ENDO - * DM: * Stop home Rx for ISS. * BSGs per unit protocol. ISS --> gtt per unit policy. * Hypothyroidism: * Continue w/ IV Levothyroxine. HEME - * Stable H&H * Will trend. ID - * No c/o infectious sources at this time. * Monitor fever curve. LINES/IV ACCESS - * PIVs x2 * Arguelles * ET Tube DVT PROPHYLAXIS - * Heparin * SCDs I have personally spent 35 minutes of critical care time in the direct management of this patient. This is a life/limb threatening event. This includes time spent evaluating patient, direct bedside care, chart review, placing orders, interpretation of diagnostic studies, discussion with consultants, patient, and family members, as well as other required patient management activities. This time is exclusive of all separately billable procedures, and teaching time and separate from and in addition to any other critical care service time. Thank you for allowing us to participate in the care of this patient. Please refer to my attending physician's documentation for any further recommendations. The patient was seen, examined independently, agree with assessment and plan of my colleagues at the time and, MELODIE. Mrs. Nathan is a 78-year-old female with a history of non-small cell lung CA status post right upper lobe and right middle lobe lobectomy, history of COPD, electrolyte imbalance, presented to the hospital with new onset seizure activity , the patient required intubation briefly and then extubated. The patient was loaded with Keppra and has been seizure-free ever since. Her past medical history, and review of system were limited as the patient was still postictal. Her family history is noncontributory to her current illness. Her physical exam revealed elderly female, not in any apparent distress, vital signs are stable, S1-S2 regular rate and rhythm, lungs are with diminished breath sounds on the right upper, abdomen is benign, no edema. Minimal blood trace is in the in the mouth but I could not appreciate tongue laceration. No rash. Neurologically she has no neuro deficit. Her labs reviewed personally. MRI of the brain did not show any intracranial catastrophe. Impression: 1. New onset seizure. 2. Non-small cell lung CA status post right upper and right middle lobe lobectomy. 3. History of COPD. 4. Acute kidney insufficiency, improving. Plan: 1. Unknown etiology of the seizure itself, will continue with Keppra. 2. Appreciate neurology input. EEG results are pending. 3. Change her medications from IV to oral including levothyroxine and Protonix. 4. Patient extubated successfully. 5. PT consult. 6. We will monitor in the ICU, once the patient is stable can be transferred to stepdown or regular floor. 7. Oral intake. 8. DVT and GI prophylaxis. 9. Discussed with the staff on rounds and details, critical care time spent with the patient was 35 minutes. (2) Status epilepticus: (3) Acute respiratory failure with hypoxia: (4) Diabetes: (5) HTN (hypertension): History of Present Illness Attending Physician: Javier Saldaña MD Patient is a 78-year-old female with a significant past medical history of non- small cell lung cancer with successful eradication with RIGHT upper and middle lobectomy on 07/11/2017, hypertension, hyperlipidemia, diabetes, and hypothyroidism who initially presented to the emergency department with concerns for seizure-like activity. Apparently, while in the emergency department and during evaluation, the patient had an acute onset of seizure. During this episode, the patient was found to be hypoxic and required emergent endotracheal intubation. The patient received IV Ativan and was subsequently successfully intubated. CT of the head as well as CTA of the head and neck were found to be otherwise unremarkable. There is some high-grade stenosis of a carotid, however no other acute findings noted at this time. She has a slight leukocytosis. There is no significant anemia. She was found to have an SASHA. Otherwise, her laboratory assessment was otherwise unremarkable. History of present illness is limited to conversation with colleagues and prior documentation secondary to patient's current state of intubation with sedation. Allergies Allergy/AdvReac Type Severity Reaction Status Date / Time No Known Allergies Allergy Unverified 08/11/18 23:42 Home Medications Home Medications Medication Instructions Recorded Confirmed Type cholecalciferol (vitamin D3) 1,000 unit PO DAILY 04/27/18 08/11/18 History escitalopram oxalate 5 mg PO HS 04/27/18 08/11/18 History levothyroxine 25 mcg PO DAILY 04/27/18 08/11/18 History mesalamine [Lialda] 4,800 mg PO DAILY 04/27/18 08/11/18 History multivitamin 1 tab PO DAILY 04/27/18 08/11/18 History omeprazole 20 mg PO DAILY 04/27/18 08/11/18 History aspirin 81 mg PO DAILY 08/11/18 08/11/18 History benzonatate [Tessalon Perles] 100 mg PO TID PRN 08/11/18 08/11/18 History glipizide 2.5 mg PO BIDM 08/11/18 08/11/18 History infliximab-dyyb 1 dose IV UD 08/11/18 08/11/18 History lisinopril 5 mg PO DAILY 08/11/18 08/11/18 History metoprolol succinate 25 mg PO DAILY 08/11/18 08/11/18 History simvastatin 40 mg PO HS 08/11/18 08/11/18 History Patient History Medical History Hyponatremia (Chronic) Arthritis DM II (diabetes mellitus, type II), controlled Depression Diabetes mellitus, type 2 GI bleed High cholesterol Hypertension Hypothyroidism Hypothyroidism Non-small cell cancer of right lung S/p lower and middle lung lobe resection in Jun 2017 Ulcerative colitis Weight loss, unintentional Surgical History History of lobectomy of lung Family History Other Heart disease Social History marital status: / Current Living Situation: Alone Other Information That Helps Us Care for You: No Feels Safe at Home: Yes Smoking Status: Former smoker Do You Dip or Chew Tobacco: No Second Hand Exposure: No Tobacco Cessation Education Requested by Patient: No Hx Alcohol Use: No Hx Substance Use: No Beliefs That Will Affect Care: None Preferred Language: Lithuanian Body Technician Required: No Review of Systems A complete 10 point review of systems was reviewed with the patient with pertinent positives and negatives as per history of present illness. All else were negative. Physical Exam 2 Vital Signs (Past 24 Hours): Last Vital Signs Temp 36.4 C L 08/11/18 22:11 Pulse 109 H 08/12/18 01:10 Resp 19 08/12/18 01:10 BP 177/87 H 08/12/18 00:47 Pulse Ox 98 08/12/18 01:10 Physical Exam: VITAL SIGNS - Vital signs and nursing notes were reviewed. GENERAL - 78-year-old female appearing her stated age who is in no acute distress. Intubated and sedated. SKIN - Without rashes. HEAD - NC/AT. EYES - PERRL with EOMI bilaterally. Sclera anicteric. Palpebral conjunctiva pink and moist with no injection noted. EARS - No deformities of external structures noted on gross examination bilaterally. NOSE - Midline and without cyanosis. No epistaxis or purulent drainage noted. MOUTH/OROPHARYNX - Without perioral cyanosis. Endotracheally intubated. NECK - Neck with FROM. Supple to palpation. No lymphadenopathy noted. No nuchal rigidity. LUNGS - Chest wall symmetric without accessory muscle use, intercostals retractions, or central cyanosis. Normal vesicular breath sounds CTA B/L. No wheezes, rales, or rhonchi appreciated. CARDIAC - RRR with S1/S2. No murmur, rubs, or gallops appreciated. ABDOMEN - Abdominal contour flat without pulsations or visible masses. BS normoactive all four quadrants. No tenderness, palpable masses, hepatosplenomegaly, or ascites noted. EXTREMITIES - No clubbing or peripheral cyanosis. No pretibial edema present. +3 /5 radial and dorsalis pedis pulses palpated throughout. NEUROLOGIC - Unable to assess secondary to current state of sedation. No focal deficits appreciated, however. Results & Data Diagnostic Findings Radiology imaging and reports were reviewed by myself. Radiologist's interpretations are as follows: CT OF THE HEAD WITHOUT CONTRAST CLINICAL HISTORY: Stroke evaluation. COMPARISON STUDY: MRI of the brain August 19, 2017. TECHNIQUE: Helical axial images of the head were obtained without IV contrast. Automated exposure control was utilized for the study. A dose lowering technique was utilized adhering to the principles of ALARA. FINDINGS: No acute intracranial hemorrhage, midline shift or mass effect is present. Ventricular system is unremarkable. The basilar cisterns are patent. There are no extra-axial collections. Conklin-white differentiation is maintained there are no findings to suggest acute dural sinus thrombosis or acute territorial infarct. There are no significant calvarial abnormalities. There is mild sinus mucosal thickening. IMPRESSION: No acute intracranial findings. CTA ANGIOGRAPHY OF THE HEAD CLINICAL HISTORY: seizure, AMS COMPARISON STUDY: MRI the brain August 19, 2017. TECHNIQUE: Helical axial images of the head were obtained following uneventful intravenous administration of 115 cc of Optiray 320. Automated exposure control was utilized for the study. A dose lowering technique was utilized adhering to the principles of ALARA. FINDINGS: No acute intracranial hemorrhage, midline shift or mass effect is present. There is moderate plaque within bilateral cavernous carotids without significant stenosis. The bilateral M1, M2, A1 and A2 segments are patent. There is no dissection or abrupt vessel cut off. No intracranial aneurysm is identified. Posterior circulation is intact. IMPRESSION: 1. No abrupt vessel cut off or intracranial aneurysm. 2. Moderate plaque within bilateral cavernous carotids without severe stenosis. CT ANGIOGRAPHY OF THE NECK WITH CONTRAST CLINICAL HISTORY: seizure, AMS. Lung cancer. COMPARISON STUDY: No previous studies for comparison. Technique: CT angiography of the carotid and vertebral arteries was obtained using [employer] 320 IV and 3D reconstruction on an independent workstation. NASCET criteria was utilized. Automated exposure control was utilized for the study. A dose lowering technique was utilized adhering to the principles of ALARA. CT DOSE: 1011.88 mGy.cm Findings: There is moderate plaque within the bilateral common carotid and internal carotid arteries. The proximal left internal carotid artery measures 2.5 cm in caliber. The more distal left internal carotid artery measures 5 mm. This suggests a 50% stenosis. Mild stenosis of the proximal right internal carotid artery. There is no evidence for dissection within the major vessels of the neck. The bilateral vertebral arteries are patent. There is no cervical lymphadenopathy. Postoperative findings within the right hemithorax are partially imaged with right apical pleural fluid which was shown on CT of June 08, 2018. Emphysema and mild interstitial pulmonary edema is noted. Multiple tiny nodular opacities within lungs are again shown as shown on prior CT. No suspicious osseous lesions are noted. There is no cervical spine fracture. IMPRESSION: 1. 50% stenosis of the proximal left internal carotid artery. Mild stenosis of the proximal right internal carotid artery. 2. Patent bilateral vertebral arteries. 3. No dissection within the neck. 4. Emphysema and mild interstitial pulmonary edema within visualized portions of the lung apices. Postoperative findings within the right upper hemithorax. 5. 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
--- NOTE | 2018-08-12 02:36 | Emergency Department Note ---
Entered by Last Menjivar acting as a scribe for History of Present Illness General Chief complaint: Seizure Stated complaint: SEIZURE Time Seen by Provider: 08/11/18 22:02 Source: RN notes reviewed Limitations: altered mental status History of Present Illness The patient is a 78 y/o white female w/ PMHx of SASHA who presents to the ED w/ CC of constant altered mental status beginning sometime this afternoon. Nursing staff states the patient walked over to her neighbor's house and only had one shoe on, and she was incoherent. They report the neighbors do not know how the patient got there. Nursing staff notes the neighbors state she had a seizure on her way here, and they do not know if she has a seizure history. HPI limited secondary to the patient's AMS. Home Medications Home Medications Medication Instructions Recorded Confirmed Type cholecalciferol (vitamin D3) 1,000 unit PO DAILY 04/27/18 08/11/18 History escitalopram oxalate 5 mg PO HS 04/27/18 08/11/18 History levothyroxine 25 mcg PO DAILY 04/27/18 08/11/18 History mesalamine [Lialda] 4,800 mg PO DAILY 04/27/18 08/11/18 History multivitamin 1 tab PO DAILY 04/27/18 08/11/18 History omeprazole 20 mg PO DAILY 04/27/18 08/11/18 History aspirin 81 mg PO DAILY 08/11/18 08/11/18 History benzonatate [Tessalon Perles] 100 mg PO TID PRN 08/11/18 08/11/18 History glipizide 2.5 mg PO BIDM 08/11/18 08/11/18 History infliximab-dyyb 1 dose IV UD 08/11/18 08/11/18 History lisinopril 5 mg PO DAILY 08/11/18 08/11/18 History metoprolol succinate 25 mg PO DAILY 08/11/18 08/11/18 History simvastatin 40 mg PO HS 08/11/18 08/11/18 History Allergies Allergy/AdvReac Type Severity Reaction Status Date / Time No Known Allergies Allergy Unverified 08/11/18 23:42 Past Med/Surg History Medical History Hyponatremia (Chronic) Arthritis DM II (diabetes mellitus, type II), controlled Depression Diabetes mellitus, type 2 GI bleed High cholesterol Hypertension Hypothyroidism Hypothyroidism Non-small cell cancer of right lung S/p lower and middle lung lobe resection in Jun 2017 Ulcerative colitis Weight loss, unintentional Surgical History History of lobectomy of lung Family History Other Heart disease Social History marital status: / Current Living Situation: Alone Feels Safe at Home: Yes Smoking Status: Unknown if ever smoked Hx Alcohol Use: No Hx Substance Use: No Beliefs That Will Affect Care: None Preferred Language: Mongolian Review of Systems Unobtainable due to cognitive status (AMS) Physical Exam Vital Signs Vital Signs - 24 hr 08/11/18 22:11 08/11/18 22:22 08/11/18 22:31 Temperature 36.4 C L Temperature Source Rectal Sepsis Recent Fever Within 48 Hours No Sepsis New/Unexplained Change in Mental Status No Sepsis Action Taken by Nursing No Action Required Pulse Rate 87 115 H 98 H Pulse Rate [Right Finger] Pulse Rhythm [Right Finger] Pulse Strength [Right Finger] Respiratory Rate Respiratory Effort / Characteristics Respiratory Depth Blood Pressure 173/71 H 162/57 H 151/69 H Blood Pressure [Right Arm] Blood Pressure Mean 105 92 96 Blood Pressure Mean [Right Arm] Pulse Oximetry 90 92 98 Oxygen Delivery Method Room Air Non-rebreather Non-rebreather Fraction of Inspired Oxygen 15 15 SaO2/FiO2 Ratio 08/11/18 22:40 08/11/18 23:00 08/11/18 23:01 Temperature Temperature Source Sepsis Recent Fever Within 48 Hours Sepsis New/Unexplained Change in Mental Status Sepsis Action Taken by Nursing Pulse Rate 81 49 L 72 Pulse Rate [Right Finger] Pulse Rhythm [Right Finger] Pulse Strength [Right Finger] Respiratory Rate 24 Respiratory Effort / Characteristics Respiratory Depth Blood Pressure 132/65 92/54 L Blood Pressure [Right Arm] Blood Pressure Mean 87 66 Blood Pressure Mean [Right Arm] Pulse Oximetry 100 92 96 Oxygen Delivery Method Non-rebreather Fraction of Inspired Oxygen SaO2/FiO2 Ratio 08/11/18 23:12 08/11/18 23:15 08/11/18 23:21 Temperature Temperature Source Sepsis Recent Fever Within 48 Hours Sepsis New/Unexplained Change in Mental Status Sepsis Action Taken by Nursing Pulse Rate 66 95 H 90 Pulse Rate [Right Finger] Pulse Rhythm [Right Finger] Pulse Strength [Right Finger] Respiratory Rate Respiratory Effort / Characteristics Respiratory Depth Blood Pressure 110/64 151/55 H Blood Pressure [Right Arm] Blood Pressure Mean 79 87 Blood Pressure Mean [Right Arm] Pulse Oximetry 78 L 97 97 Oxygen Delivery Method Fraction of Inspired Oxygen SaO2/FiO2 Ratio 08/11/18 23:30 08/11/18 23:31 08/11/18 23:41 Temperature Temperature Source Sepsis Recent Fever Within 48 Hours Sepsis New/Unexplained Change in Mental Status Sepsis Action Taken by Nursing Pulse Rate 127 H 108 H 115 H Pulse Rate [Right Finger] Pulse Rhythm [Right Finger] Pulse Strength [Right Finger] Respiratory Rate 16 Respiratory Effort / Characteristics Respiratory Depth Blood Pressure 154/65 H 174/100 H Blood Pressure [Right Arm] Blood Pressure Mean 94 124 Blood Pressure Mean [Right Arm] Pulse Oximetry 97 97 98 Oxygen Delivery Method Fraction of Inspired Oxygen 60 SaO2/FiO2 Ratio 08/11/18 23:45 08/11/18 23:51 08/12/18 00:00 Temperature Temperature Source Sepsis Recent Fever Within 48 Hours Sepsis New/Unexplained Change in Mental Status Sepsis Action Taken by Nursing Pulse Rate 97 H 100 H 108 H Pulse Rate [Right Finger] Pulse Rhythm [Right Finger] Pulse Strength [Right Finger] Respiratory Rate Respiratory Effort / Characteristics Respiratory Depth Blood Pressure 160/73 H Blood Pressure [Right Arm] Blood Pressure Mean 102 Blood Pressure Mean [Right Arm] Pulse Oximetry 99 100 100 Oxygen Delivery Method Fraction of Inspired Oxygen SaO2/FiO2 Ratio 08/12/18 00:01 08/12/18 00:11 08/12/18 00:15 Temperature Temperature Source Sepsis Recent Fever Within 48 Hours Sepsis New/Unexplained Change in Mental Status Sepsis Action Taken by Nursing Pulse Rate 108 H 110 H 99 H Pulse Rate [Right Finger] Pulse Rhythm [Right Finger] Pulse Strength [Right Finger] Respiratory Rate Respiratory Effort / Characteristics Respiratory Depth Blood Pressure 179/81 H 163/82 H Blood Pressure [Right Arm] Blood Pressure Mean 113 109 Blood Pressure Mean [Right Arm] Pulse Oximetry 100 99 100 Oxygen Delivery Method Fraction of Inspired Oxygen SaO2/FiO2 Ratio 08/12/18 00:20 08/12/18 00:21 01/02/19 00:47 Temperature Temperature Source Sepsis Recent Fever Within 48 Hours Sepsis New/Unexplained Change in Mental Status Sepsis Action Taken by Nursing Pulse Rate 91 H 94 H Pulse Rate [Right Finger] 86 Pulse Rhythm [Right Finger] Regular Pulse Strength [Right Finger] Normal Respiratory Rate 16 16 Respiratory Effort / Characteristics Non-Labored Spontaneous Respiratory Depth Normal Blood Pressure 181/75 H 177/87 H Blood Pressure [Right Arm] 181/75 H Blood Pressure Mean 110 Blood Pressure Mean [Right Arm] 110 Pulse Oximetry 99 99 99 Oxygen Delivery Method Mechanical Vent Mechanical Vent Fraction of Inspired Oxygen 60 SaO2/FiO2 Ratio 165 08/12/18 01:10 08/12/18 02:20 Temperature Temperature Source Sepsis Recent Fever Within 48 Hours Sepsis New/Unexplained Change in Mental Status Sepsis Action Taken by Nursing Pulse Rate 109 H 85 Pulse Rate [Right Finger] Pulse Rhythm [Right Finger] Pulse Strength [Right Finger] Respiratory Rate 19 23 Respiratory Effort / Characteristics Respiratory Depth Blood Pressure Blood Pressure [Right Arm] Blood Pressure Mean Blood Pressure Mean [Right Arm] Pulse Oximetry 98 100 Oxygen Delivery Method Fraction of Inspired Oxygen 60 40 SaO2/FiO2 Ratio GENERAL: Mild distress. EYE EXAM: Normal conjunctiva. PERRL, no anisocoria and EOM's grossly intact w/o pain. OROPHARYNX: No exudate, posterior pharynx is clear, no tonsillar/uvular deviation or swelling. NECK: Supple, no nuchal rigidity, no adenopathy, non-tender. No signs of meningismus. LUNGS: Normal chest wall mechanics. Protecting air way. HEART: NSR, no MRG. ABDOMEN: Abdomen soft, non-tender, normo-active bowel sounds, no masses, no rebound or guarding. BACK: No CVA TTP. SKIN: No rashes and no bruising. UPPER EXTREMITIES: Upper extremities are grossly normal. LOWER EXTREMITIES: No pitting edema. No calf pain. NEURO EXAM: Moves all four extremities to painful stimuli. Opens eyes on command. GCS of 9. Procedures Free Text Procedures Endotracheal Intubation Indication respiratory failure. The patient was on 100% oxygen via NRB prior to the procedure. Suction, airway equipment, RSI drugs, respiratory equipment, and appropriate personnel were prepared prior to the initiation of the procedure. A time out was taken. Induction was performed with etomidate and rocuronium. After observing the clinical benefit of the medications, the airway was easily visualized utilizing a Mac 4. A 7.5 size ETT tube was placed atraumatically to 23 cm using standard technique. The cuff inflated without signs of malfunction. There were bilateral breath sounds, positive colormetric change, no gastric sounds, a good capnography waveform, and post procedure pulse oximetry was 98%. Post intubation sedation was administered using Diprivan. There were no complications. Course 2202: Past medical records reviewed. The patient was evaluated in room B01, and a complete history and physical examination were performed. 2322: I intubated the patient. Please refer to the procedure note for more information 2349: I reviewed the patient's case with Dr. Angeles, [facility] Hospitalist. He will evaluate the patient for further management. Administered Medications Propofol (Diprivan) 1,000 mg in 100 mls @ 1.887 mls/hr IV .Q24H STA; Protocol Stop: 08/12/18 23:26 Last Admin: 08/11/18 23:30 Dose: 5 mcg/kg/min, 1.9 mls/hr Discontinued Medications Etomidate (Amidate) 25 mg IV NOW ONE Stop: 08/11/18 23:28 Last Admin: 08/11/18 23:24 Dose: 25 mg Levetiracetam 1,250 mg/ (Dextrose) 112.5 mls @ 440 mls/hr IV NOW STA Stop: 08/11/18 23:10 Last Infusion: 08/11/18 23:30 Dose: 0 mls/hr Admin: 08/11/18 23:14 Dose: 440 mls/hr Sodium Chloride (Nss 1000ml) 500 mls @ 999 mls/hr IV .Q31M ONE Stop: 08/11/18 23:58 Last Admin: 08/12/18 00:24 Dose: 999 mls/hr Sodium Chloride (Nss 1000ml) 1,000 mls @ 999 mls/hr IV .Q1H1M ONE Stop: 08/12/18 00:46 Last Admin: 08/12/18 00:23 Dose: 999 mls/hr Ioversol (Optiray 320 125ml) 115 ml IV ONCE PRN PRN Reason: Interaction Checking Stop: 08/15/18 22:18 Last Admin: 08/11/18 22:19 Dose: 115 ml Lorazepam (Ativan) Confirm Administered Dose 2 mg .ROUTE .STK-MED ONE Stop: 08/11/18 23:13 Last Admin: 08/11/18 23:12 Dose: 2 mg Propofol (Diprivan) Confirm Administered Dose 1,000 mg IV .STK-MED ONE Stop: 08/11/18 23:28 Last Admin: 08/12/18 00:23 Dose: Not Given Rocuronium [place] (Zemuron) 75 mg IV NOW STA Stop: 08/11/18 23:28 Last Admin: 08/11/18 23:24 Dose: 75 mg Medical Decision Making Medical Records Attestation: I reviewed the patient's medical records. Home Medications Current Medication List: was personally reviewed by me Laboratory Data Attestation: I reviewed the patient's lab results. Result diagrams: 08/11/18 22:05 08/11/18 22:05 Lab Results 08/11/18 08/11/18 08/11/18 Range/Units 22:05 22:05 22:05 WBC 11.80 H (4.8-10.8) K/uL RBC 3.68 L (4.2-5.4) M/uL Hgb 10.9 L (12.0-16.0) g/dL POC Hgb (12.0-16.0) g/dl Hct 34.5 L (37-47) % POC Hct (37-47) % MCV 93.8 (80-100) fL MCH 29.6 (25-34) pg MCHC 31.6 L (32-36) g/dL RDW Std Deviation 47.7 H (36.4-46.3) fL RDW Coeff of Timothy 13.9 (11.5-14.5) % Plt Count 291 (130-400) K/uL MPV 9.9 (7.4-10.4) fL Immature Gran % (Auto) 0.3 % Neut % (Auto) 40.8 % Lymph % (Auto) 49.6 % Garrard % (Auto) 8.8 % Eos % (Auto) 0.2 % Baso % (Auto) 0.3 % Immature Gran # (Auto) 0.03 H (0.00-0.02) K/uL Neut # (Auto) 4.83 (1.4-6.5) K/uL Lymph # (Auto) 5.85 H (1.2-3.4) K/uL Garrard # (Auto) 1.04 H (0.11-0.59) K/uL Eos # (Auto) 0.02 (0-0.5) K/uL Baso # (Auto) 0.03 (0-0.2) K/uL PT 9.8 (9.0-12.0) Seconds INR 1.0 (0.9-1.1) APTT 22.2 (21.0-31.0) Seconds PTT Ratio 0.9 POC Sodium (135-144) mEq/L Sodium 139 (136-145) mmol/L POC Potassium (3.3-5.0) mEq/L Potassium 3.7 (3.5-5.1) mmol/L POC Chloride (101-112) mEq/L Chloride 108 H (98-107) mmol/L Carbon Dioxide 16 L (21-32) mmol/L POC Total CO2 (24-31) mEq/l Anion Gap 16.0 H (3-11) POC Anion Gap (16-25) mmol/L POC BUN (7-18) mg/dl BUN 27 H (7-18) mg/dl Creatinine 1.39 H (0.6-1.2) mg/dl POC Creatinine (0.6-1.3) mg/dl Est Cr Clr Drug Dosing Not Reportable Est GFR ( Amer) 42.6 Est GFR (Non-Af Amer) 36.7 BUN/Creatinine Ratio 19.6 (10-20) Glucose 209 H (70-99) mg/dl POC Glucose (70-99) POC Glucose (other) (70-99) mg/dl Calcium 8.5 (8.5-10.1) mg/dl POC Ioniz Calcium Irene (1.12-1.32) mmol/l Magnesium 2.0 (1.8-2.4) mg/dl Total Bilirubin 0.2 (0.2-1) mg/dl AST 28 (15-37) U/L ALT 26 (12-78) U/L Alkaline Phosphatase 92 (45-117) U/L Troponin I 0.038 (0-0.045) ng/ml Total Protein 7.7 (6.4-8.2) gm/dl Albumin 3.5 (3.4-5.0) gm/dl Globulin 4.2 H (2.5-4.0) gm/dl Albumin/Globulin Ratio 0.8 L (0.9-2) Urine Opiates Screen (Neg) Ur Methadone, Qual (Neg) Urine Barbiturates (Neg) Ur Phencyclidine (PCP) (Neg) U Amphetamin/Meth Scrn (Neg) MDMA (Ecstasy) Screen (Neg) U Benzodiazepines Scrn (Neg) Ur Cocaine Metabolite (Neg) U Marijuana (THC) Screen (Neg) Blood Type Antibody Screen 08/11/18 08/11/18 08/11/18 Range/Units 22:05 22:09 22:22 WBC (4.8-10.8) K/uL RBC (4.2-5.4) M/uL Hgb (12.0-16.0) g/dL POC Hgb 11.2 L (12.0-16.0) g/dl Hct (37-47) % POC Hct 33 L (37-47) % MCV (80-100) fL MCH (25-34) pg MCHC (32-36) g/dL RDW Std Deviation (36.4-46.3) fL RDW Coeff of Timothy (11.5-14.5) % Plt Count (130-400) K/uL MPV (7.4-10.4) fL Immature Gran % (Auto) % Neut % (Auto) % Lymph % (Auto) % Garrard % (Auto) % Eos % (Auto) % Baso % (Auto) % Immature Gran # (Auto) (0.00-0.02) K/uL Neut # (Auto) (1.4-6.5) K/uL Lymph # (Auto) (1.2-3.4) K/uL Garrard # (Auto) (0.11-0.59) K/uL Eos # (Auto) (0-0.5) K/uL Baso # (Auto) (0-0.2) K/uL PT (9.0-12.0) Seconds INR (0.9-1.1) APTT (21.0-31.0) Seconds PTT Ratio POC Sodium 141 (135-144) mEq/L Sodium (136-145) mmol/L POC Potassium 3.7 (3.3-5.0) mEq/L Potassium (3.5-5.1) mmol/L POC Chloride 108 (101-112) mEq/L Chloride (98-107) mmol/L Carbon Dioxide (21-32) mmol/L POC Total CO2 16 L (24-31) mEq/l Anion Gap (3-11) POC Anion Gap 22.0 (16-25) mmol/L POC BUN 25 H (7-18) mg/dl BUN (7-18) mg/dl Creatinine (0.6-1.2) mg/dl POC Creatinine 1.1 (0.6-1.3) mg/dl Est Cr Clr Drug Dosing Est GFR ( Amer) Est GFR (Non-Af Amer) BUN/Creatinine Ratio (10-20) Glucose (70-99) mg/dl POC Glucose 224 H (70-99) POC Glucose (other) 209 H (70-99) mg/dl Calcium (8.5-10.1) mg/dl POC Ioniz Calcium Irene 1.22 (1.12-1.32) mmol/l Magnesium (1.8-2.4) mg/dl Total Bilirubin (0.2-1) mg/dl AST (15-37) U/L ALT (12-78) U/L Alkaline Phosphatase (45-117) U/L Troponin I (0-0.045) ng/ml Total Protein (6.4-8.2) gm/dl Albumin (3.4-5.0) gm/dl Globulin (2.5-4.0) gm/dl Albumin/Globulin Ratio (0.9-2) Urine Opiates Screen (Neg) Ur Methadone, Qual (Neg) Urine Barbiturates (Neg) Ur Phencyclidine (PCP) (Neg) U Amphetamin/Meth Scrn (Neg) MDMA (Ecstasy) Screen (Neg) U Benzodiazepines Scrn (Neg) Ur Cocaine Metabolite (Neg) U Marijuana (THC) Screen (Neg) Blood Type O Positive Antibody Screen NEGATIVE 08/11/18 08/12/18 Range/Units 22:30 02:17 WBC (4.8-10.8) K/uL RBC (4.2-5.4) M/uL Hgb (12.0-16.0) g/dL POC Hgb (12.0-16.0) g/dl Hct (37-47) % POC Hct (37-47) % MCV (80-100) fL MCH (25-34) pg MCHC (32-36) g/dL RDW Std Deviation (36.4-46.3) fL RDW Coeff of Timothy (11.5-14.5) % Plt Count (130-400) K/uL MPV (7.4-10.4) fL Immature Gran % (Auto) % Neut % (Auto) % Lymph % (Auto) % Garrard % (Auto) % Eos % (Auto) % Baso % (Auto) % Immature Gran # (Auto) (0.00-0.02) K/uL Neut # (Auto) (1.4-6.5) K/uL Lymph # (Auto) (1.2-3.4) K/uL Garrard # (Auto) (0.11-0.59) K/uL Eos # (Auto) (0-0.5) K/uL Baso # (Auto) (0-0.2) K/uL PT (9.0-12.0) Seconds INR (0.9-1.1) APTT (21.0-31.0) Seconds PTT Ratio POC Sodium (135-144) mEq/L Sodium (136-145) mmol/L POC Potassium (3.3-5.0) mEq/L Potassium (3.5-5.1) mmol/L POC Chloride (101-112) mEq/L Chloride (98-107) mmol/L Carbon Dioxide (21-32) mmol/L POC Total CO2 (24-31) mEq/l Anion Gap (3-11) POC Anion Gap (16-25) mmol/L POC BUN (7-18) mg/dl BUN (7-18) mg/dl Creatinine (0.6-1.2) mg/dl POC Creatinine (0.6-1.3) mg/dl Est Cr Clr Drug Dosing Est GFR ( Amer) Est GFR (Non-Af Amer) BUN/Creatinine Ratio (10-20) Glucose (70-99) mg/dl POC Glucose 175 H (70-99) POC Glucose (other) (70-99) mg/dl Calcium (8.5-10.1) mg/dl POC Ioniz Calcium Irene (1.12-1.32) mmol/l Magnesium (1.8-2.4) mg/dl Total Bilirubin (0.2-1) mg/dl AST (15-37) U/L ALT (12-78) U/L Alkaline Phosphatase (45-117) U/L Troponin I (0-0.045) ng/ml Total Protein (6.4-8.2) gm/dl Albumin (3.4-5.0) gm/dl Globulin (2.5-4.0) gm/dl Albumin/Globulin Ratio (0.9-2) Urine Opiates Screen Neg (Neg) Ur Methadone, Qual Neg (Neg) Urine Barbiturates Neg (Neg) Ur Phencyclidine (PCP) Neg (Neg) U Amphetamin/Meth Scrn Neg (Neg) MDMA (Ecstasy) Screen Neg (Neg) U Benzodiazepines Scrn Neg (Neg) Ur Cocaine Metabolite Neg (Neg) U Marijuana (THC) Screen Neg (Neg) Blood Type Antibody Screen Imaging Data Attestation: I personally reviewed and interpreted this imaging study as follows : My Impression: Pre-intubation chest xray: R upper lobe appars absent, no free air, heart is normal size. Post-intubation chest xray: Pt intubated and ETT terminates apprxoimately 2cm above the Olya. Right sided elevated lester-diaphragm Radiologist's Impression: Radiology results as stated below per my review and the radiologist's interpretation: CT ANGIOGRAPHY OF THE NECK WITH CONTRAST CLINICAL HISTORY: seizure, AMS. Lung cancer. COMPARISON STUDY: No previous studies for comparison. Technique: CT angiography of the carotid and vertebral arteries was obtained using [employer] 320 IV and 3D reconstruction on an independent workstation. NASCET criteria was utilized. Automated exposure control was utilized for the study. A dose lowering technique was utilized adhering to the principles of ALARA. CT DOSE: 1011.88 mGy.cm Findings: There is moderate plaque within the bilateral common carotid and internal carotid arteries. The proximal left internal carotid artery measures 2.5 cm in caliber. The more distal left internal carotid artery measures 5 mm. This suggests a 50% stenosis. Mild stenosis of the proximal right internal carotid artery. There is no evidence for dissection within the major vessels of the neck. The bilateral vertebral arteries are patent. There is no cervical lymphadenopathy. Postoperative findings within the right hemithorax are partially imaged with right apical pleural fluid which was shown on CT of June 08, 2018. Emphysema and mild interstitial pulmonary edema is noted. Multiple tiny nodular opacities within lungs are again shown as shown on prior CT. No suspicious osseous lesions are noted. There is no cervical spine fracture. IMPRESSION: 1. 50% stenosis of the proximal left internal carotid artery. Mild stenosis of the proximal right internal carotid artery. 2. Patent bilateral vertebral arteries. 3. No dissection within the neck. 4. Emphysema and mild interstitial pulmonary edema within visualized portions of the lung apices. Postoperative findings within the right upper hemithorax. 5. 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 Electronically signed by: Jordan Conner M.D. 08/11/2018 10:39 PM CTA ANGIOGRAPHY OF THE HEAD CLINICAL HISTORY: seizure, AMS COMPARISON STUDY: MRI the brain August 19, 2017. TECHNIQUE: Helical axial images of the head were obtained following uneventful intravenous administration of 115 cc of Optiray 320. Automated exposure control was utilized for the study. A dose lowering technique was utilized adhering to the principles of ALARA. FINDINGS: No acute intracranial hemorrhage, midline shift or mass effect is present. There is moderate plaque within bilateral cavernous carotids without significant stenosis. The bilateral M1, M2, A1 and A2 segments are patent. There is no dissection or abrupt vessel cut off. No intracranial aneurysm is identified. Posterior circulation is intact. IMPRESSION: 1. No abrupt vessel cut off or intracranial aneurysm. 2. Moderate plaque within bilateral cavernous carotids without severe stenosis. Electronically signed by: Jordan Conner M.D. 08/11/2018 10:[address] OF THE HEAD WITHOUT CONTRAST CLINICAL HISTORY: Stroke evaluation. COMPARISON STUDY: MRI of the brain August 19, 2017. TECHNIQUE: Helical axial images of the head were obtained without IV contrast. Automated exposure control was utilized for the study. A dose lowering technique was utilized adhering to the principles of ALARA. FINDINGS: No acute intracranial hemorrhage, midline shift or mass effect is present. Ventricular system is unremarkable. The basilar cisterns are patent. There are no extra-axial collections. Conklin-white differentiation is maintained there are no findings to suggest acute dural sinus thrombosis or acute territorial infarct. There are no significant calvarial abnormalities. There is mild sinus mucosal thickening. IMPRESSION: No acute intracranial findings. Electronically signed by: Jordan Conner M.D. 08/11/2018 10:43 PM ECG Data Attestation: I personally reviewed and interpreted this ECG as follows: Indication: altered mental status Rate (beats per minute): 115 Rhythm: sinus tachycardia Findings: + other (Normal intervals. No obvious ischemic change. Right axid deviation.) Comparison ECG Date: from (04/2018) Change: the following changes noted (rate increased. axis unchanged) Blood Pressure Blood Pressure Findings: Elevated blood pressure Blood Pressure Disposition: further management by hospitalist Head Trauma GCS Score: 9 MDM Narrative The patient is a 78 y/o white female w/ PMHx of SASHA who presents to the ED w/ CC of constant altered mental status beginning sometime this afternoon. Differential diagnoses includes but is not limited to toxic, metabolic, infectious, traumatic, cardiac, neurologic, hematologic, seizure, psychiatric and inflammatory etiologies. Patient was seen and evaluated immediately the bedside at the behest of nursing. The patient had been brought in essentially unresponsive after a seizure that was witnessed by some neighbors. History is very limited. There is no evidence of obvious trauma. The patient does respond to tactile stimuli. Patient has a GCS of 9. Patient's [id number] blood glucose was not low. The patient did have orders for CT of the head and CTs of the head and neck. The patient also did have blood work completed. Patient's blood work showed fairly normal white cell count of 11,000. Patient does have anemia which appears chronic and stable. Patient does not have any thrombocytopenia. Patient's coagulation studies are unremarkable. The patient' s kidney function is unremarkable. The patient does have a mild anion gap and associated low bicarb. Given the patient's fairly normal white count I believe this is more related to the recent seizure-like episode. The patient's troponin was detectable but not elevated. The patient's EKG does not show any acute ischemic change. The patient did have a UDS completed along with urinalysis which is pending. Patient CT was negative acute. The patient CT of the head and neck did show some severe stenosis of the right-sided external carotid. This does supply structures to the face and neck but it does not involve the internal carotid artery, thus I do not believe that this is what is causing the patient's seizures nor would it be likely to cause ischemia to the brain. The patient was starting to become more awake active and alert. I had originally placed a nasal trumpet in the left naris in order to help with oxygenation as the patient did have some sonorous breath sounds. The patient was initially protecting her airway and had a GCS of 9 so the patient was not intubated. I had ordered a loading dose of Keppra 1250 mg which was approximately 20 mg/kg. I did return to the room as the patient reportedly had been more awake alert and active. After trying to talk to the patient's the patient did develop more of a right-sided gaze and the patient was not speaking or following commands. The patient subsequently had a seizure had an episode of tongue biting and was not spontaneously breathing. The patient did have a nonrebreather that was placed I subsequently did asked the nurse to get 2 mg of Ativan did have other nursing help with setting up suction as well as obtaining a bag valve mask. The patient did become hypoxic to as low as 50%. The patient was never pulseless. The patient's episode of hypoxia was brief as the patient was subsequently bagged with 15 L of oxygen which resulted in great improvement in her up hypoxia in the high 90s. Given that the patient did have a second seizure in the patient had become hypoxic I thought it was important and imperative to secure the patient's airway in order to avoid this from happening again. I did have respiratory called. I had also discussed with the patient's wishes were with the patient's sister who is at the bedside prior to intubation who stated that she would like to be intubated. The patient was given both rocuronium and etomidate. The patient did have a 7-1 /2 ET tube placed. This was confirmed with breath sounds and end-tidal in colorimetry. A subsequent chest film does show some malrotation with regard to the chest but the ET tube appears approximately 2 cm above the olya. The patient tolerated the procedure without issue. I did discuss the patient's case with the on-call hospitalist as well as the hooker on. The patient was admitted to the ICU pending further evaluation and treatment. The patient had been placed on Diprivan for sedation. Impression & Plan Status epilepticus, Acute respiratory failure with hypoxia Critical Care Time I have personally spent greater than 90 minutes of critical care time in the direct management of this patient. This includes bedside care, interpretation of diagnostic studies, and testing, discussion with consultants, patient, and family members, and other required patient management activities. This 90 minutes is in excess of all separately billable procedures. Critical Care Time: Yes Total Critical Care Time: 90 Discharge Plan Visit Data *Final* Discharge Date/Time: 08/12/18 00:47 Chief Complaint: Seizure Stated Complaint: SEIZURE ED Provider: Abhijeet May Discharge Problem: Status epilepticus, Acute respiratory failure with hypoxia Patient Disposition: Admitted As Inpatient Discharge Instructions Interventions: ED Discharge Assessment Last Done: 08/12/18 00:47 The scribe's documentation has been prepared under my direction and personally reviewed by me in its entirety. I confirm that the note above accurately reflects all work, treatment, procedures, and medical decision making performed by me.
[2018-08-12] MEDS: SODIUM CHLORIDE 0.9% 1000ML 1,000 ML IV SCH ×3 (03:19→21:27)
[2018-08-12] MEDS ORDERED: CARBOHYDRATES FOR HYPOGLYCEMIA PO PRN (03:27)
[2018-08-12] MEDS ORDERED: GLUCAGON FOR INJ 1 MG VIAL IM PRN (03:27)
[2018-08-12] MEDS ORDERED: DEXTROSE 50% 50 ML SYRINGE IV PRN (03:27)
[2018-08-12] MEDS ORDERED: GLUCOSE 10 TABS/TUBE PO PRN (03:27)
[2018-08-12] MEDS ORDERED: GLUCOSE 40% GEL 15 GM TUBE PO PRN (03:27)
[2018-08-12 04:51] LABS: Basophils # (auto) 0.01 K/uL (0-0.2); Basophils % (auto) 0.1 %; Hematocrit (blood only) 30.4 % (37-47); Hemoglobin 9.8 g/dL (12.0-16.0); Immature Granulocytes # (auto) 0.03 K/uL (0.00-0.02); Immature Granulocytes % (auto) 0.3 %; Lymphocytes # (auto) 1.08 K/uL (1.2-3.4); Lymphocytes % (auto) 9.3 %; Mean Corpuscular Hgb Conc 32.2 g/dL (32-36); Mean Corpuscular Volume 90.5 fL (80-100); Mean Platelet Volume 9.7 fL (7.4-10.4); Monocytes # (auto) 0.86 K/uL (0.11-0.59); Monocytes % (auto) 7.4 %; Neutrophils # (auto) 9.65 K/uL (1.4-6.5); Neutrophils % (auto) 82.9 %; Platelet Count 262 K/uL (130-400); RDW Coefficient of Variation 13.7 % (11.5-14.5); RDW Standard Deviation 45.5 fL (36.4-46.3); Red Blood Count 3.36 M/uL (4.2-5.4); White Blood Count 11.63 K/uL (4.8-10.8)
[2018-08-12 05:11] LABS: BUN Creatinine Ratio 23.5 (10-20); Calcium 7.7 mg/dl (8.5-10.1); Creatinine Clr Calc Pharmacy 38.3 ml/min; Est GFR (African American) 65.8; Est GFR (Non-African American) 56.7; Magnesium 1.9 mg/dl (1.8-2.4); Potassium 3.7 mmol/L (3.5-5.1)
--- NOTE | 2018-08-12 06:34 | XRay Report ---
XR chest 1V portable CLINICAL HISTORY: seizure, AMS, dyspnea COMPARISON STUDY: 05/12/2018 FINDINGS: Persistent pleural thickening right pulmonary apex. Increased bronchovascular markings comp ared to the prior exam. Diaphragms smooth. Calcifications are sharp. IMPRESSION: Pulmonary vascular congestion. The above report was generated using voice recognition software. It may contain grammatical, syntax or spelling errors. Electronically signed by: Daniel Higgins M.D. 08/12/2018 6:32 AM
--- NOTE | 2018-08-12 06:36 | XRay Report ---
XR chest 1V portable CLINICAL HISTORY: post intubation tube position COMPARISON STUDY: 08/11/2017 10:42 PM FINDINGS: Position of endotracheal tube 4 cm above the vianney. Opacification right pulmonary apex unc hanged. Pulmonary vasculature also unchanged. IMPRESSION: Endotracheal tube 4 cm above the vianney. Summary vascular congestion. Unchanged findings right pulmonary apex. The above report was generated using voice recognition software. It may contain grammatical, syntax or spelling errors. Electronically signed by: Daniel Higgins M.D. 08/12/2018 6:34 AM
[2018-08-12] MEDS: INSULIN ASPART 100 UNITS/ML 3 ML PEN SC SCH ×4 (06:40→21:27)
--- NOTE | 2018-08-12 07:01 | XRay Report ---
XR chest 1V portable CLINICAL HISTORY: f/u dyspnea COMPARISON STUDY: 08/11/2018 FINDINGS: Unchanging postoperative change and pleural thickening right pulmonary apex. Endotracheal t ube is 3 cm above the vianney. Bony vasculature remains somewhat prominent. Diaphragms remain smooth. IMPRESSION: 1. Interval placement of a nasogastric tube within the gastric fundus. 2. Endotracheal tube 3 cm above the vianney. 3. Unchanging findings of pulmonary vascular congestion The above report was generated using voice recognition software. It may contain grammatical, syntax or spelling errors. Electronically signed by: Daniel Higgins M.D. 08/12/2018 7:00 AM
--- NOTE | 2018-08-12 07:51 | History and Physical Report ---
DATE OF ADMISSION: 08/11/2018 CHIEF COMPLAINT: Seizures. HISTORY OF PRESENT ILLNESS: This is a 78-year-old female with past medical history significant for lung cancer status post right-sided lower and middle lobe resection and was given Keytruda , but she developed colitis and last dose of Keytruda was given on 12/2017. For colitis, she was initially treated with steroids but as soon as her steroids were tapered she had several episodes of diarrhea and colitis was back, so she was currently given Remicade infusions and on Lialda and she is doing okay with that and follows with Dr. Contreras, and she has history of diabetes, hyperlipidemia, hypertension and in June she had an episode of confusion and her family doctor ordered Ziopatch monitor echocardiogram, and MRI was performed. 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 She lives alone and today she cooked food for 7 people and they said they had a good lunch and patient was doing okay, but later in the evening around 9:00 p.m., she called her sister in the phone and she did not answer but her sister tried to call back, she was not answering the phone. Then the patient went to her neighbor who was nurse and she seemed to be confused again and the neighbor went and checked in the room and she thought the patient might have had a seizure. EMS was called and she was brought in here and initially she was almost like she was nonverbal and she seems to be not talking and had another episode of seizure in the ER. At the time, she was loaded with Keppra was intubate. Currently, patient is on Diprivan and sedated. Hemodynamically stable. As per sister, there was no fever, chills, no nausea, no abdominal pain. She was eating okay. She was ambulating okay and she cooks her own food. Could not get any review of symptoms as patient is currently intubated and sedated. ALLERGIES: KEYTRUDA. PAST MEDICAL HISTORY: As mentioned above. PAST SURGICAL HISTORY: Colonoscopy, right middle and lower lobe lobectomy, ligation of oviduct, right breast biopsy, appendectomy, tonsillectomy, thumb tendon repair. MEDICATIONS: The patient is on Tessalon Perles 100 mg p.o. t.i.d. p.r.n., glipizide 0.5 mg p.o. b.i.d., mesalamine 4800 mg daily, Toprol-XL 25 mg p.o. daily, omeprazole 20 mg p.o. daily, levothyroxine 25 mcg p.o. daily, aspirin 81 mg p.o. daily, Lisinopril 5 mg p.o. daily, Remicade as directed, Lexapro 5 mg p.o. daily, simvastatin 40 mg p.o. at bedtime, vitamin D 1000 units p.o. daily, multivitamin 1 tablet p.o. daily. FAMILY HISTORY: Significant for sister has allergies and asthma. Maternal grandfather had lung cancer. Father had glaucoma and [place] at age of 72. Mother had hypertension and Alzheimer's disease. SOCIAL HISTORY: . Lives alone. Former smoker, quit in 2017. No alcohol use, no drug use. REVIEW OF SYSTEMS: Unobtainable at this time. PHYSICAL EXAMINATION: GENERAL: The patient is status post intubation. HEENT: No pallor, no icterus. Pupils equal, round, and react to light. VITAL SIGNS: Temperature 36.4, pulse 94, respiratory rate 16, blood pressure 181/75, oxygen 99% on 60% FiO2 on mechanical vent. NECK: No neck masses, no carotid bruits. CARDIOVASCULAR: S1, S2 heard. Tachycardia. No murmurs. RESPIRATORY: Normal AP diameter. No accessory muscle use. No wheezing, no crackles. ABDOMEN: Soft, bowel sounds present. No distention. CENTRAL NERVOUS SYSTEM: Status post intubation and sedated. EXTREMITIES: No edema, no erythema seen. LABORATORIES: WBC 7.8, hemoglobin 10.9, hematocrit 34.5, platelets 291 50. PT 9.8, INR 1, APTT 22.2. Sodium 139, potassium 3.7, chloride 108, bicarbonate 16, BUN 37, creatinine 1.39, serum glucose 209, calcium 8.5, magnesium 2.2, total bilirubin 0.2, AST 28, ALT 26, alkaline phosphatase is 92. Troponin I 0.038. Toxicology screen negative. Neck CTA 50% of stenosis of proximal left internal carotid artery and mild stenosis of the proximal right internal carotid artery. No dissection within the neck. Patent bilateral vertebral arteries, severe stenosis of the origin of the right external carotid artery. CTA of the head unremarkable. Head CT unremarkable. Chest x-ray: No acute findings. EKG: Sinus tachycardia, rate of 115, possible left atrial enlargement, no acute ST changes seen. ASSESSMENT AND PLAN: This is a 78-year-old female who presents with seizure-like episode. 1. Seizures. The patient was confused at home and went to neighbors house.Neighbor checked patients house and thought patient might have had seizure as per sister. Patient had seizure in the ER,Patient was loaded with Keppra and got intubated and started on Diprivan. The patient had episode of confusion a couple of months back and she had an extensive workup with MRI of the head, EEG which were unremarkable, Zio patch was in place, which showed some nonsustained ventricular tachycardia and paroxysmal supraventricular tachycardia, for which cardiology placed her on Toprol-XL and advised for stress test, which was not done. Echo was unremarkable. We will await further evaluation and recommendation by neurology. We will order EEG. We have placed her on IV Ativan as needed for any seizure activity. 2. History of non-small cell lung cancer status post right middle and lower lobectomy and was given Keytruda, which could not tolerate as she developed colitis. Followup with heme/onco 3. 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 4. Hypertension on lisinopril and Toprol-XL. We will hold oral medications and placed IV Lopressor as needed. 5. Diabetes. Hold home oral medications. Placed her on insulin sliding scale. 6. Hypothyroidism placed her on IV Synthroid. 7.GERD We are going to place her on IV Protonix. 8. Hyperlipidemia. Hold statin. 9. Depression, anxiety. Hold home medications. 10. Deep venous thrombosis prophylaxis, sequential compression devices for now. DISPOSITION: Close monitor in the ICU. Level I full code. MTDD
[2018-08-12] MEDS ORDERED: LEVOTHYROXINE SODIUM 12.5 MCG in SYRINGE 0 ML IV SCH (09:00)
--- NOTE | 2018-08-12 09:03 | Hospitalist Progress Note ---
Date of Service August 12, 2018 Assessment & Plan (1) Seizure: 1. Seizures. --- brain MRI pending --- Keppra 500mg IV BID ordered --- Neurologist consulted Carotid Artery Stenosis --- Neck CTA: 1. 50% stenosis of the proximal left internal carotid artery. Mild stenosis of the proximal right internal carotid artery. 2. Patent bilateral vertebral arteries. 3. No dissection within the neck. 4. Emphysema and mild interstitial pulmonary edema within visualized portions of the lung apices. Postoperative findings within the right upper hemithorax. 5. 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 --- already on ASA and Statin 2. History of non-small cell lung cancer status post right middle and lower lobectomy -- was given Keytruda, which could not tolerate as she developed colitis. Followup with heme/onco 3. 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 4. Hypertension on lisinopril and Toprol-XL. -- usually on Lisinopril and Toprol XL resume Toprol XL 5. Diabetes. Hold home oral medications. -- ISS 6. Hypothyroidism -- continue usual Synthroid 7.GERD -- IV Protonix. 8. Hyperlipidemia -- on Simvastatin 9. Depression, anxiety. Hold home medications. 10. Deep venous thrombosis prophylaxis, sequential compression devices for now. Subjective ff up for seizure episodes seen in the ICU extubated around 730am, propofol discontinued patient sleeping, opens eyes to verbal stimuli, drowsy not able to recall yesterday events clearly yet denies headache, dizziness, nausea, chest pain, dyspna no other symptoms Physical Exam 2 Vital Signs (Past 24 Hours): Last Vital Signs Temp 37.1 C 08/12/18 06:00 Pulse 80 08/12/18 07:00 Resp 21 08/12/18 07:00 BP 148/62 H 08/12/18 06:00 Pulse Ox 99 08/12/18 07:00 Physical Exam: General- oriented x 2, not in distress, speaks in sentences with no effort or accessory muscle use Eyes- anicteric Neck- no JVD Lungs- clear breath sounds bilaterally, no rales/wheezes Heart- normal rate, regular rhythm; no murmurs Abdomen- normal bowel sounds, nondistended, soft, nontender Extremities- no pretibial edema, no calf tenderness Neuro- alert, oriented x 2; drowsy, but no gross focal neurologic deficits Skin- warm & dry Results & Data Laboratory Results Laboratory Results - last 24 hr 08/11/18 08/11/18 08/11/18 22:05 22:05 22:05 WBC 11.80 H RBC 3.68 L Hgb 10.9 L POC Hgb Hct 34.5 L POC Hct MCV 93.8 MCH 29.6 MCHC 31.6 L RDW Std Deviation 47.7 H RDW Coeff of Timothy 13.9 Plt Count 291 MPV 9.9 Immature Gran % (Auto) 0.3 Neut % (Auto) 40.8 Lymph % (Auto) 49.6 [place] % (Auto) 8.8 Eos % (Auto) 0.2 Baso % (Auto) 0.3 Immature Gran # (Auto) 0.03 H Neut # (Auto) 4.83 Lymph # (Auto) 5.85 H [place] # (Auto) 1.04 H Eos # (Auto) 0.02 Baso # (Auto) 0.03 Blood Smear Review PT 9.8 INR 1.0 APTT 22.2 PTT Ratio 0.9 POC Sodium Sodium 139 POC Potassium Potassium 3.7 POC Chloride Chloride 108 H Carbon Dioxide 16 L POC Total CO2 Anion Gap 16.0 H POC Anion Gap POC BUN BUN 27 H Creatinine 1.39 H POC Creatinine Est Cr Clr Drug Dosing Not Reportable Est GFR ( Amer) 42.6 Est GFR (Non-Af Amer) 36.7 BUN/Creatinine Ratio 19.6 Glucose 209 H POC Glucose POC Glucose (other) Calcium 8.5 POC Ioniz Calcium Irene Magnesium 2.0 Total Bilirubin 0.2 AST 28 ALT 26 Alkaline Phosphatase 92 Troponin I 0.038 Total Protein 7.7 Albumin 3.5 Globulin 4.2 H Albumin/Globulin Ratio 0.8 L Urine Color Urine Appearance Urine pH Ur Specific [place] Urine Protein Urine Glucose (UA) Urine Ketones Urine Blood Urine Nitrite Urine Bilirubin Urine Urobilinogen Ur Leukocyte Esterase Urine WBC (Auto) Urine RBC (Auto) U Hyaline Cast (Auto) U Epithel Cells (Auto) Urine Bacteria (Auto) Nasal Screen MRSA (PCR) Urine Opiates Screen Ur Methadone, Qual Urine Barbiturates Ur Phencyclidine (PCP) U Amphetamin/Meth Scrn MDMA (Ecstasy) Screen U Benzodiazepines Scrn Ur Cocaine Metabolite U Marijuana (THC) Screen Blood Type Antibody Screen 08/11/18 08/11/18 08/11/18 22:05 22:09 22:22 WBC RBC Hgb POC Hgb 11.2 L Hct POC Hct 33 L MCV MCH MCHC RDW Std Deviation RDW Coeff of Timothy Plt Count MPV Immature Gran % (Auto) Neut % (Auto) Lymph % (Auto) [place] % (Auto) Eos % (Auto) Baso % (Auto) Immature Gran # (Auto) Neut # (Auto) Lymph # (Auto) [place] # (Auto) Eos # (Auto) Baso # (Auto) Blood Smear Review PT INR APTT PTT Ratio POC Sodium 141 Sodium POC Potassium 3.7 Potassium POC Chloride 108 Chloride Carbon Dioxide POC Total CO2 16 L Anion Gap POC Anion Gap 22.0 POC BUN 25 H BUN Creatinine POC Creatinine 1.1 Est Cr Clr Drug Dosing Est GFR ( Amer) Est GFR (Non-Af Amer) BUN/Creatinine Ratio Glucose POC Glucose 224 H POC Glucose (other) 209 H Calcium POC Ioniz Calcium Irene 1.22 Magnesium Total Bilirubin AST ALT Alkaline Phosphatase Troponin I Total Protein Albumin Globulin Albumin/Globulin Ratio Urine Color Urine Appearance Urine pH Ur Specific [place] Urine Protein Urine Glucose (UA) Urine Ketones Urine Blood Urine Nitrite Urine Bilirubin Urine Urobilinogen Ur Leukocyte Esterase Urine WBC (Auto) Urine RBC (Auto) U Hyaline Cast (Auto) U Epithel Cells (Auto) Urine Bacteria (Auto) Nasal Screen MRSA (PCR) Urine Opiates Screen Ur Methadone, Qual Urine Barbiturates Ur Phencyclidine (PCP) U Amphetamin/Meth Scrn MDMA (Ecstasy) Screen U Benzodiazepines Scrn Ur Cocaine Metabolite U Marijuana (THC) Screen Blood Type O Positive Antibody Screen NEGATIVE 08/11/18 08/12/18 08/12/18 22:30 02:17 02:19 WBC RBC Hgb POC Hgb Hct POC Hct MCV MCH MCHC RDW Std Deviation RDW Coeff of Timothy Plt Count MPV Immature Gran % (Auto) Neut % (Auto) Lymph % (Auto) [place] % (Auto) Eos % (Auto) Baso % (Auto) Immature Gran # (Auto) Neut # (Auto) Lymph # (Auto) [place] # (Auto) Eos # (Auto) Baso # (Auto) Blood Smear Review PT INR APTT PTT Ratio POC Sodium Sodium POC Potassium Potassium POC Chloride Chloride Carbon Dioxide POC Total CO2 Anion Gap POC Anion Gap POC BUN BUN Creatinine POC Creatinine Est Cr Clr Drug Dosing Est GFR ( Amer) Est GFR (Non-Af Amer) BUN/Creatinine Ratio Glucose POC Glucose 175 H POC Glucose (other) Calcium POC Ioniz Calcium Irene Magnesium Total Bilirubin AST ALT Alkaline Phosphatase Troponin I Total Protein Albumin Globulin Albumin/Globulin Ratio Urine Color Urine Appearance Urine pH Ur Specific [place] Urine Protein Urine Glucose (UA) Urine Ketones Urine Blood Urine Nitrite Urine Bilirubin Urine Urobilinogen Ur Leukocyte Esterase Urine WBC (Auto) Urine RBC (Auto) U Hyaline Cast (Auto) U Epithel Cells (Auto) Urine Bacteria (Auto) Nasal Screen MRSA (PCR) Negative Urine Opiates Screen Neg Ur Methadone, Qual Neg Urine Barbiturates Neg Ur Phencyclidine (PCP) Neg U Amphetamin/Meth Scrn Neg MDMA (Ecstasy) Screen Neg U Benzodiazepines Scrn Neg Ur Cocaine Metabolite Neg U Marijuana (THC) Screen Neg Blood Type Antibody Screen 08/12/18 08/12/18 08/12/18 04:25 04:25 06:39 WBC 11.63 H RBC 3.36 L Hgb 9.8 L POC Hgb Hct 30.4 L POC Hct MCV 90.5 MCH 29.2 MCHC 32.2 RDW Std Deviation 45.5 RDW Coeff of Timothy 13.7 Plt Count 262 MPV 9.7 Immature Gran % (Auto) 0.3 Neut % (Auto) 82.9 Lymph % (Auto) 9.3 [place] % (Auto) 7.4 Eos % (Auto) 0.0 Baso % (Auto) 0.1 Immature Gran # (Auto) 0.03 H Neut # (Auto) 9.65 H Lymph # (Auto) 1.08 L [place] # (Auto) 0.86 H Eos # (Auto) 0.00 Baso # (Auto) 0.01 Blood Smear Review PT INR APTT PTT Ratio POC Sodium Sodium 141 POC Potassium Potassium 3.7 POC Chloride Chloride 109 H Carbon Dioxide 25 POC Total CO2 Anion Gap 7.0 POC Anion Gap POC BUN BUN 23 H Creatinine 0.97 D POC Creatinine Est Cr Clr Drug Dosing 38.3 Est GFR ( Amer) 65.8 Est GFR (Non-Af Amer) 56.7 BUN/Creatinine Ratio 23.5 H Glucose 164 H POC Glucose 132 H POC Glucose (other) Calcium 7.7 L POC Ioniz Calcium Irene Magnesium 1.9 Total Bilirubin AST ALT Alkaline Phosphatase Troponin I Total Protein Albumin Globulin Albumin/Globulin Ratio Urine Color Urine Appearance Urine pH Ur Specific [place] Urine Protein Urine Glucose (UA) Urine Ketones Urine Blood Urine Nitrite Urine Bilirubin Urine Urobilinogen Ur Leukocyte Esterase Urine WBC (Auto) Urine RBC (Auto) U Hyaline Cast (Auto) U Epithel Cells (Auto) Urine Bacteria (Auto) Nasal Screen MRSA (PCR) Urine Opiates Screen Ur Methadone, Qual Urine Barbiturates Ur Phencyclidine (PCP) U Amphetamin/Meth Scrn MDMA (Ecstasy) Screen U Benzodiazepines Scrn Ur Cocaine Metabolite U Marijuana (THC) Screen Blood Type Antibody Screen 08/12/18 09:41 WBC RBC Hgb POC Hgb Hct POC Hct MCV MCH MCHC RDW Std Deviation RDW Coeff of Timothy Plt Count MPV Immature Gran % (Auto) Neut % (Auto) Lymph % (Auto) [place] % (Auto) Eos % (Auto) Baso % (Auto) Immature Gran # (Auto) Neut # (Auto) Lymph # (Auto) [place] # (Auto) Eos # (Auto) Baso # (Auto) Blood Smear Review PT INR APTT PTT Ratio POC Sodium Sodium POC Potassium Potassium POC Chloride Chloride Carbon Dioxide POC Total CO2 Anion Gap POC Anion Gap POC BUN BUN Creatinine POC Creatinine Est Cr Clr Drug Dosing Est GFR ( Amer) Est GFR (Non-Af Amer) BUN/Creatinine Ratio Glucose POC Glucose POC Glucose (other) Calcium POC Ioniz Calcium Irene Magnesium Total Bilirubin AST ALT Alkaline Phosphatase Troponin I Total Protein Albumin Globulin Albumin/Globulin Ratio Urine Color Yellow Urine Appearance Clear Urine pH 6.0 Ur Specific [place] 1.036 H Urine Protein 2+ H Urine Glucose (UA) Negative Urine Ketones Negative Urine Blood 1+ H Urine Nitrite Negative Urine Bilirubin Negative Urine Urobilinogen Negative Ur Leukocyte Esterase Negative Urine WBC (Auto) 5-10 H Urine RBC (Auto) 5-10 H U Hyaline Cast (Auto) 1-5 U Epithel Cells (Auto) 20-30 H Urine Bacteria (Auto) Negative Nasal Screen MRSA (PCR) Urine Opiates Screen Ur Methadone, Qual Urine Barbiturates Ur Phencyclidine (PCP) U Amphetamin/Meth Scrn MDMA (Ecstasy) Screen U Benzodiazepines Scrn Ur Cocaine Metabolite U Marijuana (THC) Screen Blood Type Antibody Screen
[2018-08-12] MEDS ORDERED: PANTOprazole 40 MG in SYRINGE 0 ML IV SCH (11:00)
[2018-08-12 11:48] LABS: Appearance Urine Clear (Clear); Bacteria Urine Automated Negative (Negative); Bilirubin Urine Negative (Negative); Color Urine Yellow; Epithelial Cell Urine Auto 20-30 /lpf (0-5); Glucose Urine UA Negative (Negative); Ketones Urine Negative (Negative); Leukocyte Esterase Urine Negative (Negative); Nitrite Urine Negative (Negative); Protein Urine 2+ (Negative); Specific Gravity Urine 1.036 (1.000-1.030); Urobilinogen Urine Negative (Negative)
[2018-08-12] MEDS ORDERED: GADOBUTROL 65ML VIAL IV PRN (12:23)
--- NOTE | 2018-08-12 12:47 | Magnetic Resonance Report ---
MR brain seizure wo/w con CLINICAL HISTORY: seizure disorder COMPARISON STUDY: 08/19/2017 TECHNIQUE: Utilizing a 1.5 Gabrielle magnet and dedicated coil, multiplanar, multiecho imaging of the br ain was performed pre and postcontrast administration. IV administration of 6 mL of Gadavist contras t was uneventful. Thin cut coronal T2 imaging was performed according to seizure protocol. FINDINGS: Signal characteristics are unremarkable. Diffusion-weighted images are considered negative for an acute ischemic event. Despite moderate post motion artifact, the study is considered diagnostic. No abnormal postcontrast e nhancement. Mild age-related chronic small vessel change and atrophy. IMPRESSION: Mild age-related chronic small vessel change and atrophy. No acute process. The above report was generated using voice recognition software. It may contain grammatical, syntax or spelling errors. Electronically signed by: Daniel Higgins M.D. 08/12/2018 12:45 PM
--- NOTE | 2018-08-12 13:30 | Procedure Note ---
EEG Procedure Note Date of Service August 12, 2018 Start / End Times Start Time: 0800 End Time: 0820 Referring Physician Freda Moffett MD History seizures withpost seizure lethargy and stupor Home Medication List Home Medications Medication Instructions Recorded Confirmed Type cholecalciferol (vitamin D3) 1,000 unit PO DAILY 04/27/18 08/11/18 History escitalopram oxalate 5 mg PO HS 04/27/18 08/11/18 History levothyroxine 25 mcg PO DAILY 04/27/18 08/11/18 History mesalamine [Lialda] 4,800 mg PO DAILY 04/27/18 08/11/18 History multivitamin 1 tab PO DAILY 04/27/18 08/11/18 History omeprazole 20 mg PO DAILY 04/27/18 08/11/18 History aspirin 81 mg PO DAILY 08/11/18 08/11/18 History benzonatate [Tessalon Perles] 100 mg PO TID PRN 08/11/18 08/11/18 History glipizide 2.5 mg PO BIDM 08/11/18 08/11/18 History infliximab-dyyb 1 dose IV UD 08/11/18 08/11/18 History lisinopril 5 mg PO DAILY 08/11/18 08/11/18 History metoprolol succinate 25 mg PO DAILY 08/11/18 08/11/18 History simvastatin 40 mg PO HS 08/11/18 08/11/18 History Inpatient Medication List Gadobutrol (Gadavist 65ml) 5 ml IV ONCE PRN PRN Reason: Interaction Checking Stop: 08/16/18 12:22 Last Admin: 08/12/18 12:25 Dose: 5 ml Sodium Chloride (Nss 1000ml) 1,000 mls @ 100 mls/hr IV .Q10H JENNIFER Stop: 09/11/18 01:16 Last Admin: 08/12/18 03:19 Dose: 100 mls/hr Levetiracetam 500 mg/ Dextrose 105 mls @ 420 mls/hr IV Q12H JENNIFER Stop: 09/11/18 09:59 Last Infusion: 08/12/18 09:58 Dose: 0 mls/hr Admin: 08/12/18 09:30 Dose: 420 mls/hr Insulin Aspart (Novolog Flexpen) 0 units SC Q6 JENNIFER Stop: 09/11/18 05:59 Last Admin: 08/12/18 13:10 Dose: Not Given Admin: 08/12/18 06:40 Dose: Not Given Discontinued Medications Etomidate (Amidate) 25 mg IV NOW ONE Stop: 08/11/18 23:28 Last Admin: 08/11/18 23:24 Dose: 25 mg Levetiracetam 1,250 mg/ (Dextrose) 112.5 mls @ 440 mls/hr IV NOW STA Stop: 08/11/18 23:10 Last Infusion: 08/11/18 23:30 Dose: 0 mls/hr Admin: 08/11/18 23:14 Dose: 440 mls/hr Propofol (Diprivan) 1,000 mg in 100 mls @ 1.887 mls/hr IV .Q24H STA; Protocol Stop: 08/12/18 23:26 Last Titration: 08/12/18 07:00 Dose: 0 mcg/kg/min, 0 mls/hr Admin: 08/11/18 23:30 Dose: 5 mcg/kg/min, 1.9 mls/hr Sodium Chloride (Nss 1000ml) 500 mls @ 999 mls/hr IV .Q31M ONE Stop: 08/11/18 23:58 Last Infusion: 08/12/18 09:08 Dose: 0 mls/hr Admin: 08/12/18 00:24 Dose: 999 mls/hr Sodium Chloride (Nss 1000ml) 1,000 mls @ 999 mls/hr IV .Q1H1M ONE Stop: 08/12/18 00:46 Last Infusion: 08/12/18 09:08 Dose: 0 mls/hr Admin: 08/12/18 00:23 Dose: 999 mls/hr Ioversol (Optiray 320 125ml) 115 ml IV ONCE PRN PRN Reason: Interaction Checking Stop: 08/15/18 22:18 Last Admin: 08/11/18 22:19 Dose: 115 ml Lorazepam (Ativan) Confirm Administered Dose 2 mg .ROUTE .STK-MED ONE Stop: 08/11/18 23:13 Last Admin: 08/11/18 23:12 Dose: 2 mg Miscellaneous () Confirm Administered Dose 1 ea .ROUTE .STK-MED ONE Stop: 08/11/18 23:15 Last Admin: 08/12/18 03:18 Dose: Not Given Propofol (Diprivan) Confirm Administered Dose 1,000 mg IV .Perfect-NearbyNow ONE Stop: 08/11/18 23:28 Last Admin: 08/12/18 00:23 Dose: Not Given Rocuronium [place] (Zemuron) 75 mg IV NOW STA Stop: 08/11/18 23:28 Last Admin: 08/11/18 23:24 Dose: 75 mg Description This is a 21 electrode EEG with a single channel dedicated to limited EKG. The electrodes were placed in accordance with the International 10-20 system. This study is done in the icu on an intubated patient and is of good quality allowing for a few muscle and ventilator artefacts photic stimulation os performed It is difficult to determine if the patient is awake and the tracing could easily reflect drowsiness Overall the predominant rhythmi is in the upper theta range and is symmetrical and maximal posteriorly with a moderate amplitude central theta/delta pattern and some bifrontal beta that is difficult to distinguish for scalp muscle artefacts. No lateralizing features are seen and no potentially epileptogenic patterns are present wnd hyperventilation induces no significant changes or responses Interpretation mild to moderate abnormal eeg with generalized slowing and no potentially epileptogenic features Clinical Correlation mild to moderate nonspecific encephalopthy with no evidence for ongoing or potential epileptogenic activity Faisal Corado MD
--- NOTE | 2018-08-12 13:50 | Neurology Consultation ---
Date of Consultation August 12, 2018 Assessment & Plan (1) Seizure: 1. Keppra loading dose in ED 2. Keppra 500 mg BID continue 3. continue cardiac work up as planned 4. no seizure history- no seizur focus on EEG no lesions or abnormalities on MRI 5. continue aspirin 81 mg aspirin 6. continue Zocor 40 mg daily 7. optimize DM, HLD, HTN LDL <70 consider patient age 8. medical managment per primary service. 9. will need hypocalcimia work up Pt seen and examined, outpt eval reviewed. Was being seen by neurol for confusion. Unclear if "spells" per se, but and extensive hitchcock was being performed as outpt and included mri, eeg, vasc hitchcock. At least 1 genl sz today, likely more. Calcium low, but repeat nml and has been nml as outpt. Pt is currently sleepy, but arousable, oriented, nonfocal. Imp new onset sz, no obvious etiol, although in this age group a vascular etiology is most likely.. It is unclear if the confusion reported as an outpt represents pcom sz. Perhaps the use of keppra will answer that. will follow with you. TAE Moffett MD Supervising Physician Co-Signing Physician Notes I have seen and discussed above patient with Dr Freda Moffett, neurology History of Present Illness Reason for Consultation: seizure Requesting Physician: Javier Saldaña MD Attending Physician: Javier Saldaña MD History of Present Illness Fatoumata is a 78 year old female PMH DM, HLD, HTN lung CA post right sided lower and middle lobe resection. On Keytruda but developed severe colitis and diarrhea last taken 12/2017. She is now on Remicade infusions and Lialda and follows with Ben. She had an episode of confusion in June and had a ZIO, TTE and MRI. 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 The ZIO had some SVT and VT. The TTE revealed some LV wall thickness and normal EF. She did see cardiology who recommended beta nikhil and stress test. She was seen in our office for the confusion and an EEG was done with no seizure focus noted. she had an episode prior to coming into the hospital which the neighbor thought looked like a seizure and then had another episode in the ED. She was then loaded with Keppra and intubated. Currently she is extubated and 2 sisters are in the room. They state they saw the seizure in the ED which she was very stiff and was intubated at that point. Allergies Allergy/AdvReac Type Severity Reaction Status Date / Time No Known Allergies Allergy Unverified 08/11/18 23:42 Home Medications Home Medications Medication Instructions Recorded Confirmed Type cholecalciferol (vitamin D3) 1,000 unit PO DAILY 04/27/18 08/11/18 History escitalopram oxalate 5 mg PO HS 04/27/18 08/11/18 History levothyroxine 25 mcg PO DAILY 04/27/18 08/11/18 History mesalamine [Lialda] 4,800 mg PO DAILY 04/27/18 08/11/18 History multivitamin 1 tab PO DAILY 04/27/18 08/11/18 History omeprazole 20 mg PO DAILY 04/27/18 08/11/18 History aspirin 81 mg PO DAILY 08/11/18 08/11/18 History benzonatate [Tessalon Perles] 100 mg PO TID PRN 08/11/18 08/11/18 History glipizide 2.5 mg PO BIDM 08/11/18 08/11/18 History infliximab-dyyb 1 dose IV UD 08/11/18 08/11/18 History lisinopril 5 mg PO DAILY 08/11/18 08/11/18 History metoprolol succinate 25 mg PO DAILY 08/11/18 08/11/18 History simvastatin 40 mg PO HS 08/11/18 08/11/18 History Patient History Medical History Hyponatremia (Chronic) Arthritis DM II (diabetes mellitus, type II), controlled Depression Diabetes mellitus, type 2 GI bleed High cholesterol Hypertension Hypothyroidism Hypothyroidism Non-small cell cancer of right lung S/p lower and middle lung lobe resection in Jun 2017 Ulcerative colitis Weight loss, unintentional Surgical History History of lobectomy of lung Family History Other Heart disease Social History marital status: / Current Living Situation: Alone Other Information That Helps Us Care for You: No Feels Safe at Home: Yes Smoking Status: Former smoker Do You Dip or Chew Tobacco: No Second Hand Exposure: No Tobacco Cessation Education Requested by Patient: No Hx Alcohol Use: No Hx Substance Use: No Beliefs That Will Affect Care: None Preferred Language: Kyrgyz Checker Cashier Required: No Physical Exam 2 Vital Signs (Past 24 Hours): Last Vital Signs Temp 36.6 C 08/12/18 09:00 Pulse 72 08/12/18 11:01 Resp 19 08/12/18 11:01 BP 128/84 08/12/18 11:01 Pulse Ox 97 08/12/18 11:01 Physical Exam: Constitutional: appearance nourished, healthy and normal Ears, Nose, Mouth and Throat: mucous membranes moist, no injection and skin normal, eyes normal Cardiovascular: normal S-1 and S-2 and regular rate and rhythm Respiratory: course breath sounds Musculoskeletal: no peripheral edema and good distal pulses Skin: no stigmata of neurocutaneous disease noted and normal and intact Eyes: extraocular muscles intact (EOMI) and pupils equal, round and reactive to light (PERRL) NEUROLOGIC EXAMINATION: Mental status: Alert and interactive Oriented 2018, [facility], sister in room identify by name Oriented to person Speech fluent with no evidence of aphasia Cranial Nerves smile eye brow raise symmetric Reflexes: Deep tendon reflexes were symmetrical and graded 2/5. Plantar responses were flexor. Sensory: intact to cool and vibration Coordination: finger to nose not bi pass Gait/Stance: Posture normal. lying in bed. Motor: Negative for pronator drift of out stretched arms with eyes closed. 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, hip flex bilaterally 4+/5, plantar flex ext 5/5 Results & Data Laboratory Results Abnormal lab results 08/11/18 08/11/18 08/11/18 Range/Units 22:05 22:05 22:05 WBC 11.80 H (4.8-10.8) K/uL RBC 3.68 L (4.2-5.4) M/uL Hgb 10.9 L (12.0-16.0) g/dL POC Hgb (12.0-16.0) g/dl Hct 34.5 L (37-47) % POC Hct (37-47) % MCHC 31.6 L (32-36) g/dL RDW Std Deviation 47.7 H (36.4-46.3) fL Immature Gran # (Auto) 0.03 H (0.00-0.02) K/uL Neut # (Auto) (1.4-6.5) K/uL Lymph # (Auto) 5.85 H (1.2-3.4) K/uL Ness # (Auto) 1.04 H (0.11-0.59) K/uL Chloride 108 H (98-107) mmol/L Carbon Dioxide 16 L (21-32) mmol/L POC Total CO2 (24-31) mEq/l Anion Gap 16.0 H (3-11) POC BUN (7-18) mg/dl BUN 27 H (7-18) mg/dl Creatinine 1.39 H (0.6-1.2) mg/dl BUN/Creatinine Ratio (10-20) Glucose 209 H (70-99) mg/dl POC Glucose 224 H (70-99) POC Glucose (other) (70-99) mg/dl Calcium (8.5-10.1) mg/dl Globulin 4.2 H (2.5-4.0) gm/dl Albumin/Globulin Ratio 0.8 L (0.9-2) Ur Specific [place] (1.000-1.030) Urine Protein (Negative) Urine Blood (Negative) Urine WBC (Auto) (0-5) /hpf Urine RBC (Auto) (0-4) /hpf U Epithel Cells (Auto) (0-5) /lpf 08/11/18 08/12/18 08/12/18 Range/Units 22:09 02:17 04:25 WBC 11.63 H (4.8-10.8) K/uL RBC 3.36 L (4.2-5.4) M/uL Hgb 9.8 L (12.0-16.0) g/dL POC Hgb 11.2 L (12.0-16.0) g/dl Hct 30.4 L (37-47) % POC Hct 33 L (37-47) % MCHC (32-36) g/dL RDW Std Deviation (36.4-46.3) fL Immature Gran # (Auto) 0.03 H (0.00-0.02) K/uL Neut # (Auto) 9.65 H (1.4-6.5) K/uL Lymph # (Auto) 1.08 L (1.2-3.4) K/uL Ness # (Auto) 0.86 H (0.11-0.59) K/uL Chloride (98-107) mmol/L Carbon Dioxide (21-32) mmol/L POC Total CO2 16 L (24-31) mEq/l Anion Gap (3-11) POC BUN 25 H (7-18) mg/dl BUN (7-18) mg/dl Creatinine (0.6-1.2) mg/dl BUN/Creatinine Ratio (10-20) Glucose (70-99) mg/dl POC Glucose 175 H (70-99) POC Glucose (other) 209 H (70-99) mg/dl Calcium (8.5-10.1) mg/dl Globulin (2.5-4.0) gm/dl Albumin/Globulin Ratio (0.9-2) Ur Specific [place] (1.000-1.030) Urine Protein (Negative) Urine Blood (Negative) Urine WBC (Auto) (0-5) /hpf Urine RBC (Auto) (0-4) /hpf U Epithel Cells (Auto) (0-5) /lpf 08/12/18 08/12/18 08/12/18 Range/Units 04:25 06:39 09:41 WBC (4.8-10.8) K/uL RBC (4.2-5.4) M/uL Hgb (12.0-16.0) g/dL POC Hgb (12.0-16.0) g/dl Hct (37-47) % POC Hct (37-47) % MCHC (32-36) g/dL RDW Std Deviation (36.4-46.3) fL Immature Gran # (Auto) (0.00-0.02) K/uL Neut # (Auto) (1.4-6.5) K/uL Lymph # (Auto) (1.2-3.4) K/uL Ness # (Auto) (0.11-0.59) K/uL Chloride 109 H (98-107) mmol/L Carbon Dioxide (21-32) mmol/L POC Total CO2 (24-31) mEq/l Anion Gap (3-11) POC BUN (7-18) mg/dl BUN 23 H (7-18) mg/dl Creatinine (0.6-1.2) mg/dl BUN/Creatinine Ratio 23.5 H (10-20) Glucose 164 H (70-99) mg/dl POC Glucose 132 H (70-99) POC Glucose (other) (70-99) mg/dl Calcium 7.7 L (8.5-10.1) mg/dl Globulin (2.5-4.0) gm/dl Albumin/Globulin Ratio (0.9-2) Ur Specific [place] 1.036 H (1.000-1.030) Urine Protein 2+ H (Negative) Urine Blood 1+ H (Negative) Urine WBC (Auto) 5-10 H (0-5) /hpf Urine RBC (Auto) 5-10 H (0-4) /hpf U Epithel Cells (Auto) 20-30 H (0-5) /lpf 08/12/18 Range/Units 13:03 WBC (4.8-10.8) K/uL RBC (4.2-5.4) M/uL Hgb (12.0-16.0) g/dL POC Hgb (12.0-16.0) g/dl Hct (37-47) % POC Hct (37-47) % MCHC (32-36) g/dL RDW Std Deviation (36.4-46.3) fL Immature Gran # (Auto) (0.00-0.02) K/uL Neut # (Auto) (1.4-6.5) K/uL Lymph # (Auto) (1.2-3.4) K/uL Ness # (Auto) (0.11-0.59) K/uL Chloride (98-107) mmol/L Carbon Dioxide (21-32) mmol/L POC Total CO2 (24-31) mEq/l Anion Gap (3-11) POC BUN (7-18) mg/dl BUN (7-18) mg/dl Creatinine (0.6-1.2) mg/dl BUN/Creatinine Ratio (10-20) Glucose (70-99) mg/dl POC Glucose 109 H (70-99) POC Glucose (other) (70-99) mg/dl Calcium (8.5-10.1) mg/dl Globulin (2.5-4.0) gm/dl Albumin/Globulin Ratio (0.9-2) Ur Specific [place] (1.000-1.030) Urine Protein (Negative) Urine Blood (Negative) Urine WBC (Auto) (0-5) /hpf Urine RBC (Auto) (0-4) /hpf U Epithel Cells (Auto) (0-5) /lpf Diagnostic Findings EEG- mild to moderate abnormal eeg with generalized slowing and no potentially epileptogenic features CT head- No acute intracranial findings. CTA head and neck- . No abrupt vessel cut off or intracranial aneurysm. Moderate plaque within bilateral cavernous carotids without severe stenosis. MRI brain- Mild age-related chronic small vessel change and atrophy. No acute process.
[2018-08-12] MEDS: PANTOprazole 40 MG TAB PO SCH (14:39)
[2018-08-12] MEDS: LEVOTHYROXINE SODIUM 25 MCG TABLET PO SCH (14:39)
[2018-08-13 04:51] LABS: Basophils # (auto) 0.02 K/uL (0-0.2); Basophils % (auto) 0.3 %; Eosinophils # (auto) 0.01 K/uL (0-0.5); Eosinophils % (auto) 0.1 %; Hematocrit (blood only) 28.8 % (37-47); Immature Granulocytes # (auto) 0.02 K/uL (0.00-0.02); Immature Granulocytes % (auto) 0.3 %; Lymphocytes # (auto) 1.82 K/uL (1.2-3.4); Lymphocytes % (auto) 24.8 %; Mean Corpuscular Hgb Conc 31.3 g/dL (32-36); Monocytes # (auto) 0.86 K/uL (0.11-0.59); Monocytes % (auto) 11.7 %; Neutrophils % (auto) 62.8 %; Platelet Count 259 K/uL (130-400); RDW Standard Deviation 46.6 fL (36.4-46.3); Red Blood Count 3.13 M/uL (4.2-5.4); White Blood Count 7.33 K/uL (4.8-10.8)
[2018-08-13 05:31] LABS: BUN Creatinine Ratio 22.6 (10-20); Calcium 7.2 mg/dl (8.5-10.1); Creatinine Clr Calc Pharmacy 50.9 ml/min; Est GFR (African American) 92.7; Magnesium 1.9 mg/dl (1.8-2.4); Phosphorus 2.1 mg/dl (2.5-4.9); Potassium 3.1 mmol/L (3.5-5.1)
[2018-08-13] MEDS: LEVOTHYROXINE SODIUM 25 MCG TABLET PO SCH (05:46)
[2018-08-13] MEDS ORDERED: POTASSIUM CHLORIDE 20 MEQ TABCR PO STA (05:51)
[2018-08-13] MEDS: POTASSIUM CHLORIDE / WTR 10 MEQ/100 ML PLCT IV SCH ×2 (06:08→08:09)
[2018-08-13] MEDS ORDERED: COUGH DROP (SUGAR FREE) LOZ 24 LOZ/1 BOX BUCCAL ONE (06:28)
[2018-08-13 06:30] LABS: Estimated Average Glucose 146 mg/dl
[2018-08-13] MEDS ORDERED: COUGH DROP (SUGAR FREE) LOZ 24 LOZ/1 BOX BUCCAL STA (06:30)
[2018-08-13] MEDS: INSULIN ASPART 100 UNITS/ML 3 ML PEN SC SCH ×4 (08:09→21:47)
[2018-08-13] MEDS: METOPROLOL SUCC 25MG EXT REL TAB PO SCH (08:09)
[2018-08-13] MEDS: PANTOprazole 40 MG TAB PO SCH (08:09)
[2018-08-13] MEDS ORDERED: POTASSIUM PHOS 3 MMOL/1 ML INFUSION IV STA (08:27)
[2018-08-13] MEDS ORDERED: POTASSIUM PHOSPHATE 21 MMOL in SODIUM CHLORIDE 0.9% 500 ML IV ONE (09:00)
[2018-08-13] MEDS: SODIUM CHLORIDE 0.9% 1000ML 1,000 ML IV SCH (09:15)
[2018-08-13] MEDS: ASPIRIN 81 MG CHEW PO SCH (11:58)
--- NOTE | 2018-08-13 13:54 | Neurology Progress Note ---
Date of Service August 13, 2018 Assessment & Plan (1) Seizure: 1. Keppra loading dose in ED 2. Keppra 500 mg BID continue 3. continue cardiac work up as planned 4. no seizure history- no seizure focus on EEG no lesions or abnormalities on MRI 5. continue aspirin 81 mg aspirin 6. continue Zocor 40 mg daily 7. optimize DM, HLD, HTN LDL <70 consider patient age 8. medical management per primary service. 9. will need hypo calcium work up 10. discussed no driving until 6 months seizure free. no heights, swimming bathing alone will see in our clinic in 4-6 weeks after discharge, Freda Chowdhury PAC schedule Pt seen and examined. Prior spells at home of feeling compelled to escape, stereotyped. Episode at home unwitnessed, but GTC sz here. Spells at home query PCOM sz or aura ? P Tx with Keppra, see what resolves. If "confusional episodes " continue at home, ambulatory EEG. TAE Moffett MD will sign off for now call with questions concerns Supervising Physician Co-Signing Physician Notes I have seen and discussed above patient with Dr Freda Moffett, neurology Subjective Fatoumata is a 78 year old female PMH DM, HLD, HTN lung CA post right sided lower and middle lobe resection. On Keytruda but developed severe colitis and diarrhea last taken 12/2017. She is now on Remicade infusions and Lialda and follows with Ben. She had an episode of confusion in June and had a ZIO, TTE and MRI. 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 The ZIO had some SVT and VT. The TTE revealed some LV wall thickness and normal EF. She did see cardiology who recommended beta nikhil and stress test. She was seen in our office for the confusion and an EEG was done with no seizure focus noted. she had an episode prior to coming into the hospital which the neighbor thought looked like a seizure and then had another episode in the ED. She was then loaded with Keppra and intubated. Today she is sitting up in bedside chair. She remembers being in her apartment and getting the feeling like she needed to run. She ran to her neighbors apartment and she called 911. She states the episode was similar to things that have happened to her in the past. She understands she was started on a seizure medication and because she had an episode of LOC she won't be able to drive until she is 6 months seizure free. denies CP, SOB, abdominal pain one sided weakness, numbness tingling, N, V, staring spells, morning jerks. 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, hip flex plantar flex ext 5/ 5 bilaterally finger to nose no bi pass, no tremor no pronator drift Results & Data Laboratory Results Abnormal lab results 08/12/18 08/12/18 08/13/18 Range/Units 16:31 20:13 04:27 RBC 3.13 L (4.2-5.4) M/uL Hgb 9.0 L (12.0-16.0) g/dL Hct 28.8 L (37-47) % MCHC 31.3 L (32-36) g/dL RDW Std Deviation 46.6 H (36.4-46.3) fL [place] # (Auto) 0.86 H (0.11-0.59) K/uL Potassium (3.5-5.1) mmol/L Chloride (98-107) mmol/L BUN/Creatinine Ratio (10-20) Glucose (70-99) mg/dl POC Glucose 104 H 128 H (70-99) Hemoglobin A1c (4.5-5.6) % Calcium (8.5-10.1) mg/dl Phosphorus (2.5-4.9) mg/dl 08/13/18 08/13/18 08/13/18 Range/Units 04:27 04:27 07:54 RBC (4.2-5.4) M/uL Hgb (12.0-16.0) g/dL Hct (37-47) % MCHC (32-36) g/dL RDW Std Deviation (36.4-46.3) fL [place] # (Auto) (0.11-0.59) K/uL Potassium 3.1 L D (3.5-5.1) mmol/L Chloride 115 H (98-107) mmol/L BUN/Creatinine Ratio 22.6 H (10-20) Glucose 105 H (70-99) mg/dl POC Glucose 108 H (70-99) Hemoglobin A1c 6.7 H (4.5-5.6) % Calcium 7.2 L (8.5-10.1) mg/dl Phosphorus 2.1 L (2.5-4.9) mg/dl 08/13/18 Range/Units 11:23 RBC (4.2-5.4) M/uL Hgb (12.0-16.0) g/dL Hct (37-47) % MCHC (32-36) g/dL RDW Std Deviation (36.4-46.3) fL [place] # (Auto) (0.11-0.59) K/uL Potassium (3.5-5.1) mmol/L Chloride (98-107) mmol/L BUN/Creatinine Ratio (10-20) Glucose (70-99) mg/dl POC Glucose 154 H (70-99) Hemoglobin A1c (4.5-5.6) % Calcium (8.5-10.1) mg/dl Phosphorus (2.5-4.9) mg/dl Diagnostic Findings no new imaging
[2018-08-13 16:14] LABS: Albumin Level 2.6 gm/dl (3.4-5.0); Calcium 7.5 mg/dl (8.5-10.1); Potassium 4.2 mmol/L (3.5-5.1)
--- NOTE | 2018-08-13 17:38 | Hospitalist Progress Note ---
Date of Service August 13, 2018 Assessment & Plan (1) Seizure: 1. Seizures. --- brain MRI unrevealing EEG: No epileptogenic focus noted --- Keppra 500mg IV BID ordered, changed to p.o. today --- Neurologist consulted, appreciate the recommendations Carotid Artery Stenosis --- Neck CTA: 1. 50% stenosis of the proximal left internal carotid artery. Mild stenosis of the proximal right internal carotid artery. 2. Patent bilateral vertebral arteries. 3. No dissection within the neck. 4. Emphysema and mild interstitial pulmonary edema within visualized portions of the lung apices. Postoperative findings within the right upper hemithorax. 5. 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 --- already on ASA and Statin Low potassium, phosphorus --Replace with K-Phos Monitor levels --Calcium is low but albumin is also low Monitor 2. History of non-small cell lung cancer status post right middle and lower lobectomy -- was given Keytruda, which could not tolerate as she developed colitis. Followup with heme/onco 3. 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 4. Hypertension on lisinopril and Toprol-XL. -- usually on Lisinopril and Toprol XL on Toprol XL 5. Diabetes. Hold home oral medications. -- ISS 6. Hypothyroidism -- continue usual Synthroid 7.GERD -- IV Protonix. 8. Hyperlipidemia -- on Simvastatin 9. Depression, anxiety. Hold home medications. 10. Deep venous thrombosis prophylaxis, sequential compression devices for now. Disposition Pending Subjective Follow-up for seizures Seen sitting up in bedside chair, and her sister who is visiting Oriented x2, not in distress, speaking in sentences, no effort Has poor recollection of events yesterday and the day prior Denies headache, dizziness, nausea, shortness of breath, chest pain, palpitations No focal neurologic deficits Denies other symptoms Physical Exam 2 Vital Signs (Past 24 Hours): Last Vital Signs Temp 36.6 C 08/13/18 14:01 Pulse 74 08/13/18 14:01 Resp 22 08/13/18 14:01 BP 135/58 L 08/13/18 14:01 Pulse Ox 98 08/13/18 14:01 Physical Exam: General- oriented x 3, not in distress, speaks in sentences with no effort or accessory muscle use Eyes- anicteric Neck- no JVD Lungs- clear breath sounds bilaterally, No crackles, no wheezing Heart- normal rate, regular rhythm; no murmurs Abdomen- normal bowel sounds, nondistended, soft, nontender Extremities- no pretibial edema, no calf tenderness Neuro- alert, oriented x 3; no gross focal neurologic deficits Skin- warm & dry Results & Data Laboratory Results Laboratory Results - last 24 hr 08/12/18 08/12/18 08/13/18 16:31 20:13 04:27 WBC 7.33 RBC 3.13 L Hgb 9.0 L Hct 28.8 L MCV 92.0 MCH 28.8 MCHC 31.3 L RDW Std Deviation 46.6 H RDW Coeff of Timothy 14.0 Plt Count 259 MPV 10.0 Immature Gran % (Auto) 0.3 Neut % (Auto) 62.8 Lymph % (Auto) 24.8 [place] % (Auto) 11.7 Eos % (Auto) 0.1 Baso % (Auto) 0.3 Immature Gran # (Auto) 0.02 Neut # (Auto) 4.60 Lymph # (Auto) 1.82 [place] # (Auto) 0.86 H Eos # (Auto) 0.01 Baso # (Auto) 0.02 Sodium Potassium Chloride Carbon Dioxide Anion Gap BUN Creatinine Est Cr Clr Drug Dosing Est GFR ( Amer) Est GFR (Non-Af Amer) BUN/Creatinine Ratio Glucose POC Glucose 104 H 128 H Estimat Average Glucose Hemoglobin A1c Calcium Phosphorus Magnesium Albumin 08/13/18 08/13/18 08/13/18 04:27 04:27 07:54 WBC RBC Hgb Hct MCV MCH MCHC RDW Std Deviation RDW Coeff of Timothy Plt Count MPV Immature Gran % (Auto) Neut % (Auto) Lymph % (Auto) [place] % (Auto) Eos % (Auto) Baso % (Auto) Immature Gran # (Auto) Neut # (Auto) Lymph # (Auto) [place] # (Auto) Eos # (Auto) Baso # (Auto) Sodium 143 Potassium 3.1 L D Chloride 115 H Carbon Dioxide 21 Anion Gap 7.0 BUN 17 Creatinine 0.73 Est Cr Clr Drug Dosing 50.9 Est GFR ( Amer) 92.7 Est GFR (Non-Af Amer) 80.0 BUN/Creatinine Ratio 22.6 H Glucose 105 H POC Glucose 108 H Estimat Average Glucose 146 Hemoglobin A1c 6.7 H Calcium 7.2 L Phosphorus 2.1 L Magnesium 1.9 Albumin 08/13/18 08/13/18 08/13/18 11:23 15:40 16:45 WBC RBC Hgb Hct MCV MCH MCHC RDW Std Deviation RDW Coeff of Timothy Plt Count MPV Immature Gran % (Auto) Neut % (Auto) Lymph % (Auto) [place] % (Auto) Eos % (Auto) Baso % (Auto) Immature Gran # (Auto) Neut # (Auto) Lymph # (Auto) [place] # (Auto) Eos # (Auto) Baso # (Auto) Sodium Potassium 4.2 D Chloride Carbon Dioxide Anion Gap BUN Creatinine Est Cr Clr Drug Dosing Est GFR ( Amer) Est GFR (Non-Af Amer) BUN/Creatinine Ratio Glucose POC Glucose 154 H 119 H Estimat Average Glucose Hemoglobin A1c Calcium 7.5 L Phosphorus Magnesium Albumin 2.6 L
[2018-08-13 17:44] LABS: Phosphorus 3.3 mg/dl (2.5-4.9)
--- NOTE | 2018-08-13 19:43 | Critical Care Progress Note ---
Date of Service August 13, 2018 Assessment & Plan (1) Seizure: Impression: 1. New onset seizure, etiology is unknown. 2. History of non-small cell lung CA status post right upper and right middle lobe lobectomy. 3. COPD, not in exacerbation. 4. AK I, improved. Plan: 1. Continue Keppra, renal dose adjusted. 2. Appreciate neurology input. 3. Replace potassium. 4. PT consult. 5. DVT and GI prophylaxis. 6. Oral intake. 7. Transfer the patient to regular floor. Appreciate Dr. Majano input. 8. Discussed with the staff on rounds and details. Thank you, will follow as needed. Subjective The patient feels much better, no recurrence of seizures, denies any chest pain , no shortness of breath, no muscle aches, she is well oriented, following commands appropriately. Physical Exam 2 Vital Signs (Past 24 Hours): Last Vital Signs Temp 36.6 C 08/13/18 14:01 Pulse 74 08/13/18 14:01 Resp 22 08/13/18 14:01 BP 135/58 L 08/13/18 14:01 Pulse Ox 98 08/13/18 14:01 Physical Exam: Vital signs are stable, S1-S2 regular rate and rhythm, lungs are clear, abdomen is benign, no nystagmus, no postictal symptoms, no edema, no focality. Results & Data Laboratory Results Labs were reviewed personally, potassium has been replaced. Diagnostic Findings No new imaging.
[2018-08-13] MEDS: levETIRAcetam 500 MG TAB PO SCH (21:44)
[2018-08-13] MEDS: SIMVASTATIN 40 MG TAB PO SCH (21:44)
[2018-08-14] MEDS: LEVOTHYROXINE SODIUM 25 MCG TABLET PO SCH (06:24)
[2018-08-14 06:36] LABS: Basophils # (auto) 0.02 K/uL (0-0.2); Basophils % (auto) 0.3 %; Eosinophils # (auto) 0.02 K/uL (0-0.5); Eosinophils % (auto) 0.3 %; Hematocrit (blood only) 27.8 % (37-47); Hemoglobin 9.1 g/dL (12.0-16.0); Immature Granulocytes # (auto) 0.01 K/uL (0.00-0.02); Immature Granulocytes % (auto) 0.1 %; Lymphocytes # (auto) 1.85 K/uL (1.2-3.4); Lymphocytes % (auto) 27.3 %; Mean Corpuscular Hgb Conc 32.7 g/dL (32-36); Mean Corpuscular Volume 90.8 fL (80-100); Mean Platelet Volume 9.8 fL (7.4-10.4); Monocytes # (auto) 0.85 K/uL (0.11-0.59); Monocytes % (auto) 12.6 %; Neutrophils # (auto) 4.02 K/uL (1.4-6.5); Neutrophils % (auto) 59.4 %; Platelet Count 253 K/uL (130-400); RDW Coefficient of Variation 13.8 % (11.5-14.5); RDW Standard Deviation 45.4 fL (36.4-46.3); Red Blood Count 3.06 M/uL (4.2-5.4); White Blood Count 6.77 K/uL (4.8-10.8)
[2018-08-14 07:11] LABS: BUN Creatinine Ratio 18.8 (10-20); Calcium 7.5 mg/dl (8.5-10.1); Creatinine Clr Calc Pharmacy 42.4 ml/min; Est GFR (African American) 81.8; Est GFR (Non-African American) 70.5; Magnesium 1.8 mg/dl (1.8-2.4); Potassium 3.8 mmol/L (3.5-5.1)
[2018-08-14] MEDS: levETIRAcetam 500 MG TAB PO SCH ×2 (07:49→21:17)
[2018-08-14] MEDS: METOPROLOL SUCC 25MG EXT REL TAB PO SCH (07:49)
[2018-08-14] MEDS: PANTOprazole 40 MG TAB PO SCH (07:49)
[2018-08-14] MEDS: INSULIN ASPART 100 UNITS/ML 3 ML PEN SC SCH ×4 (07:51→21:17)
[2018-08-14] MEDS: ASPIRIN 81 MG CHEW PO SCH (07:53)
--- NOTE | 2018-08-14 16:29 | Hospitalist Progress Note ---
Date of Service August 14, 2018 Assessment & Plan (1) Seizure: 1. Seizures. --- brain MRI unrevealing EEG: No epileptogenic focus noted --- Keppra 500mg IV BID ordered, changed to p.o. tolerating well --- Neurologist consulted, appreciate the recommendations Carotid Artery Stenosis --- Neck CTA: 1. 50% stenosis of the proximal left internal carotid artery. Mild stenosis of the proximal right internal carotid artery. 2. Patent bilateral vertebral arteries. 3. No dissection within the neck. 4. Emphysema and mild interstitial pulmonary edema within visualized portions of the lung apices. Postoperative findings within the right upper hemithorax. 5. 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 --- already on ASA and Statin Low potassium, phosphorus --Replaced with K-Phos --Calcium is low but albumin is also low corrected calcium 8.6 2. History of non-small cell lung cancer status post right middle and lower lobectomy -- was given Keytruda, which could not tolerate as she developed colitis. Followup with heme/onco 3. 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 4. Hypertension on lisinopril and Toprol-XL. -- continue Lisinopril and Toprol XL 5. Diabetes. Hold home oral medications. -- ISS 6. Hypothyroidism -- continue usual Synthroid 7.GERD -- IV Protonix. 8. Hyperlipidemia -- on Simvastatin 9. Depression, anxiety. Hold home medications. 10. Deep venous thrombosis prophylaxis, sequential compression devices for now. Disposition possible d/c home tomorrow Subjective ff up for seizures seen resting in bed, comfortable states she feels fine overall denies dizziness,confusion, headache, focal neuro deficits ambulating with no problems denies other symptoms Physical Exam 2 Vital Signs (Past 24 Hours): Last Vital Signs Temp 37.1 C 08/14/18 14:42 Pulse 74 08/14/18 14:42 Resp 16 08/14/18 14:42 BP 161/54 H 08/14/18 14:42 Pulse Ox 96 08/14/18 14:42 Physical Exam: General- oriented x 3, not in distress, speaks in sentences with no effort or accessory muscle use Eyes- anicteric Neck- no JVD Lungs- clear breath sounds bilaterally no rales no wheezing Heart- normal rate, regular rhythm; no murmurs Abdomen- normal bowel sounds, nondistended, soft, nontender Extremities- no pretibial edema, no calf tenderness Neuro- alert, oriented x 3; no gross focal neurologic deficits Skin- warm & dry Results & Data Laboratory Results Laboratory Results - last 24 hr 08/11/18 08/13/18 08/14/18 22:05 20:49 06:20 WBC 6.77 RBC 3.06 L Hgb 9.1 L Hct 27.8 L MCV 90.8 MCH 29.7 MCHC 32.7 RDW Std Deviation 45.4 RDW Coeff of Timothy 13.8 Plt Count 253 MPV 9.8 Immature Gran % (Auto) 0.1 Neut % (Auto) 59.4 Lymph % (Auto) 27.3 Hubbard % (Auto) 12.6 Eos % (Auto) 0.3 Baso % (Auto) 0.3 Immature Gran # (Auto) 0.01 Neut # (Auto) 4.02 Lymph # (Auto) 1.85 Hubbard # (Auto) 0.85 H Eos # (Auto) 0.02 Baso # (Auto) 0.02 Sodium Potassium Chloride Carbon Dioxide Anion Gap BUN Creatinine Est Cr Clr Drug Dosing Est GFR ( Amer) Est GFR (Non-Af Amer) BUN/Creatinine Ratio Glucose POC Glucose 184 H Calcium Magnesium Flow Cytometry Comment See Comment 08/14/18 08/14/18 08/14/18 06:20 07:16 11:14 WBC RBC Hgb Hct MCV MCH MCHC RDW Std Deviation RDW Coeff of Timothy Plt Count MPV Immature Gran % (Auto) Neut % (Auto) Lymph % (Auto) Hubbard % (Auto) Eos % (Auto) Baso % (Auto) Immature Gran # (Auto) Neut # (Auto) Lymph # (Auto) Hubbard # (Auto) Eos # (Auto) Baso # (Auto) Sodium 141 Potassium 3.8 Chloride 113 H Carbon Dioxide 23 Anion Gap 5.0 BUN 15 Creatinine 0.81 Est Cr Clr Drug Dosing 42.4 Est GFR ( Amer) 81.8 Est GFR (Non-Af Amer) 70.5 BUN/Creatinine Ratio 18.8 Glucose 132 H POC Glucose 146 H 181 H Calcium 7.5 L Magnesium 1.8 Flow Cytometry Comment 08/14/18 16:21 WBC RBC Hgb Hct MCV MCH MCHC RDW Std Deviation RDW Coeff of Timothy Plt Count MPV Immature Gran % (Auto) Neut % (Auto) Lymph % (Auto) Hubbard % (Auto) Eos % (Auto) Baso % (Auto) Immature Gran # (Auto) Neut # (Auto) Lymph # (Auto) Hubbard # (Auto) Eos # (Auto) Baso # (Auto) Sodium Potassium Chloride Carbon Dioxide Anion Gap BUN Creatinine Est Cr Clr Drug Dosing Est GFR ( Amer) Est GFR (Non-Af Amer) BUN/Creatinine Ratio Glucose POC Glucose 128 H Calcium Magnesium Flow Cytometry Comment Diagnostic Findings Laboratory Results - last 24 hr 08/11/18 08/13/18 08/14/18 22:05 20:49 06:20 WBC 6.77 RBC 3.06 L Hgb 9.1 L Hct 27.8 L MCV 90.8 MCH 29.7 MCHC 32.7 RDW Std Deviation 45.4 RDW Coeff of Timothy 13.8 Plt Count 253 MPV 9.8 Immature Gran % (Auto) 0.1 Neut % (Auto) 59.4 Lymph % (Auto) 27.3 Hubbard % (Auto) 12.6 Eos % (Auto) 0.3 Baso % (Auto) 0.3 Immature Gran # (Auto) 0.01 Neut # (Auto) 4.02 Lymph # (Auto) 1.85 Hubbard # (Auto) 0.85 H Eos # (Auto) 0.02 Baso # (Auto) 0.02 Sodium Potassium Chloride Carbon Dioxide Anion Gap BUN Creatinine Est Cr Clr Drug Dosing Est GFR ( Amer) Est GFR (Non-Af Amer) BUN/Creatinine Ratio Glucose POC Glucose 184 H Calcium Magnesium Flow Cytometry Comment See Comment 08/14/18 08/14/18 08/14/18 06:20 07:16 11:14 WBC RBC Hgb Hct MCV MCH MCHC RDW Std Deviation RDW Coeff of Timothy Plt Count MPV Immature Gran % (Auto) Neut % (Auto) Lymph % (Auto) Hubbard % (Auto) Eos % (Auto) Baso % (Auto) Immature Gran # (Auto) Neut # (Auto) Lymph # (Auto) Hubbard # (Auto) Eos # (Auto) Baso # (Auto) Sodium 141 Potassium 3.8 Chloride 113 H Carbon Dioxide 23 Anion Gap 5.0 BUN 15 Creatinine 0.81 Est Cr Clr Drug Dosing 42.4 Est GFR ( Amer) 81.8 Est GFR (Non-Af Amer) 70.5 BUN/Creatinine Ratio 18.8 Glucose 132 H POC Glucose 146 H 181 H Calcium 7.5 L Magnesium 1.8 Flow Cytometry Comment 08/14/18 16:21 WBC RBC Hgb Hct MCV MCH MCHC RDW Std Deviation RDW Coeff of Timothy Plt Count MPV Immature Gran % (Auto) Neut % (Auto) Lymph % (Auto) Hubbard % (Auto) Eos % (Auto) Baso % (Auto) Immature Gran # (Auto) Neut # (Auto) Lymph # (Auto) Hubbard # (Auto) Eos # (Auto) Baso # (Auto) Sodium Potassium Chloride Carbon Dioxide Anion Gap BUN Creatinine Est Cr Clr Drug Dosing Est GFR ( Amer) Est GFR (Non-Af Amer) BUN/Creatinine Ratio Glucose POC Glucose 128 H Calcium Magnesium Flow Cytometry Comment
[2018-08-14] MEDS: LISINOPRIL 5 MG TAB PO SCH (17:06)
[2018-08-14] MEDS: SIMVASTATIN 40 MG TAB PO SCH (21:17)
[2018-08-15] MEDS: LEVOTHYROXINE SODIUM 25 MCG TABLET PO SCH (06:01)
[2018-08-15] MEDS: INSULIN ASPART 100 UNITS/ML 3 ML PEN SC SCH ×2 (07:44→12:16)
[2018-08-15] MEDS: METOPROLOL SUCC 25MG EXT REL TAB PO SCH (07:49)
[2018-08-15] MEDS: levETIRAcetam 500 MG TAB PO SCH (07:50)
[2018-08-15] MEDS: LISINOPRIL 5 MG TAB PO SCH (07:50)
[2018-08-15] MEDS: PANTOprazole 40 MG TAB PO SCH (07:50)
[2018-08-15] MEDS: ASPIRIN 81 MG CHEW PO SCH (07:52)
--- NOTE | 2018-08-15 14:18 | Hospitalist Progress Note ---
Date of Service August 15, 2018 Assessment & Plan (1) Seizure: 1. Seizures. --- brain MRI unrevealing EEG: No epileptogenic focus noted --- Keppra 500mg IV BID ordered, changed to p.o. tolerating well --- Neurologist consulted, appreciate the recommendations needs to ff up with Neurologist Dr. Walker in 4 weeks Carotid Artery Stenosis --- Neck CTA: 1. 50% stenosis of the proximal left internal carotid artery. Mild stenosis of the proximal right internal carotid artery. 2. Patent bilateral vertebral arteries. 3. No dissection within the neck. 4. Emphysema and mild interstitial pulmonary edema within visualized portions of the lung apices. Postoperative findings within the right upper hemithorax. 5. 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 --- already on ASA and Statin Low potassium, phosphorus --Replaced with K-Phos --Calcium is low but albumin is also low corrected calcium 8.6 2. History of non-small cell lung cancer status post right middle and lower lobectomy -- was given Keytruda, which could not tolerate as she developed colitis. Followup with heme/onco 3. 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 4. Hypertension on lisinopril and Toprol-XL. -- continue Lisinopril and Toprol XL 5. Diabetes. Hold home oral medications. -- ISS 6. Hypothyroidism -- continue usual Synthroid 7.GERD -- IV Protonix. 8. Hyperlipidemia -- on Simvastatin 9. Depression, anxiety. Hold home medications. 10. Deep venous thrombosis prophylaxis, sequential compression devices for now. Disposition d/c home today ff up with PCP in 3-5 days ff up with Neurologist in 4 weeks Subjective ff up for seizure seen sitting up in bed, comfortable in good spirits states she feels fine overall denies dizziness, headache, neurologic symptoms no chest pain, dyspnea, palpitations, nausea ambulating in the halls with no problems denies other symptoms states she is ready and would like to be discharged today Physical Exam 2 Vital Signs (Past 24 Hours): Last Vital Signs Temp 36.7 C 08/15/18 12:34 Pulse 74 08/15/18 12:34 Resp 20 08/15/18 12:34 BP 148/62 H 08/15/18 12:34 Pulse Ox 96 08/15/18 12:34 Physical Exam: General- oriented x 3, not in distress, speaks in sentences with no effort or accessory muscle use Eyes- anicteric Neck- no JVD Lungs- clear BS bilaterally no rales/wheezes Heart- normal rate, regular rhythm; no murmurs Abdomen- normal bowel sounds, nondistended, soft, nontender Extremities- no pretibial edema, no calf tenderness Neuro- alert, oriented x 3; no gross focal neurologic deficits Skin- warm & dry Results & Data Laboratory Results Laboratory Results - last 24 hr 08/14/18 08/14/18 08/15/18 16:21 20:30 07:25 POC Glucose 128 H 167 H 152 H 08/15/18 11:12 POC Glucose 202 H
--- NOTE | 2018-08-15 14:38 | Discharge Summary ---
Date of Service August 15, 2018 Admission HPI Per Admitting Provider CHIEF COMPLAINT: Seizures. HISTORY OF PRESENT ILLNESS: This is a 78-year-old female with past medical history significant for lung cancer status post right-sided lower and middle lobe resection and was given Keytruda , but she developed colitis and last dose of Keytruda was given on 12/2017. For colitis, she was initially treated with steroids but as soon as her steroids were tapered she had several episodes of diarrhea and colitis was back, so she was currently given Remicade infusions and on Lialda and she is doing okay with that and follows with Dr. Contreras, and she has history of diabetes, hyperlipidemia, hypertension and in June she had an episode of confusion and her family doctor ordered Ziopatch monitor echocardiogram, and MRI was performed. 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 She lives alone and today she cooked food for 7 people and they said they had a good lunch and patient was doing okay, but later in the evening around 9:00 p.m., she called her sister in the phone and she did not answer but her sister tried to call back, she was not answering the phone. Then the patient went to her neighbor who was nurse and she seemed to be confused again and the neighbor went and checked in the room and she thought the patient might have had a seizure. EMS was called and she was brought in here and initially she was almost like she was nonverbal and she seems to be not talking and had another episode of seizure in the ER. At the time, she was loaded with Keppra was intubate. Currently, patient is on Diprivan and sedated. Hemodynamically stable. As per sister, there was no fever, chills, no nausea, no abdominal pain. She was eating okay. She was ambulating okay and she cooks her own food. Could not get any review of symptoms as patient is currently intubated and sedated. Admission Exam Per Admitting Provider GENERAL: The patient is status post intubation. HEENT: No pallor, no icterus. Pupils equal, round, and react to light. VITAL SIGNS: Temperature 36.4, pulse 94, respiratory rate 16, blood pressure 181/75, oxygen 99% on 60% FiO2 on mechanical vent. NECK: No neck masses, no carotid bruits. CARDIOVASCULAR: S1, S2 heard. Tachycardia. No murmurs. RESPIRATORY: Normal AP diameter. No accessory muscle use. No wheezing, no crackles. ABDOMEN: Soft, bowel sounds present. No distention. CENTRAL NERVOUS SYSTEM: Status post intubation and sedated. EXTREMITIES: No edema, no erythema seen. Principal Diagnosis SEIZURES Discharge Exam Vital Signs (Past 24 Hours): Last Vital Signs Temp 36.7 C 08/15/18 12:34 Pulse 74 08/15/18 12:34 Resp 20 08/15/18 12:34 BP 148/62 H 08/15/18 12:34 Pulse Ox 96 08/15/18 12:34 Physical Exam: General- oriented x 3, not in distress, speaks in sentences with no effort or accessory muscle use Eyes- anicteric Neck- no JVD Lungs- clear BS bilaterally no rales/wheezes Heart- normal rate, regular rhythm; no murmurs Abdomen- normal bowel sounds, nondistended, soft, nontender Extremities- no pretibial edema, no calf tenderness Neuro- alert, oriented x 3; no gross focal neurologic deficits Skin- warm & dry Discharge Data Allergies Allergy/AdvReac Type Severity Reaction Status Date / Time No Known Allergies Allergy Unverified 08/11/18 23:42 Consultations 08/11/18 23:56 ED Decision to Admit Stat 08/12/18 01:17 Consult Case Management - Discharge Planning Routine Consult Solderer Routine 08/12/18 08:00 Consult Neurology Routine Ordered Studies 08/11/18 22:06 CT ANGIOGRAPHY OF THE NECK WITH CONTRAST CLINICAL HISTORY: seizure, AMS. Lung cancer. COMPARISON STUDY: No previous studies for comparison. Technique: CT angiography of the carotid and vertebral arteries was obtained using InfoBasis 320 IV and 3D reconstruction on an independent workstation. NASCET criteria was utilized. Automated exposure control was utilized for the study. A dose lowering technique was utilized adhering to the principles of ALARA. CT DOSE: 1011.88 mGy.cm Findings: There is moderate plaque within the bilateral common carotid and internal carotid arteries. The proximal left internal carotid artery measures 2.5 cm in caliber. The more distal left internal carotid artery measures 5 mm. This suggests a 50% stenosis. Mild stenosis of the proximal right internal carotid artery. There is no evidence for dissection within the major vessels of the neck. The bilateral vertebral arteries are patent. There is no cervical lymphadenopathy. Postoperative findings within the right hemithorax are partially imaged with right apical pleural fluid which was shown on CT of June 08, 2018. Emphysema and mild interstitial pulmonary edema is noted. Multiple tiny nodular opacities within lungs are again shown as shown on prior CT. No suspicious osseous lesions are noted. There is no cervical spine fracture. IMPRESSION: 1. 50% stenosis of the proximal left internal carotid artery. Mild stenosis of the proximal right internal carotid artery. 2. Patent bilateral vertebral arteries. 3. No dissection within the neck. 4. Emphysema and mild interstitial pulmonary edema within visualized portions of the lung apices. Postoperative findings within the right upper hemithorax. 5. 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 CTA ANGIOGRAPHY OF THE HEAD CLINICAL HISTORY: seizure, AMS COMPARISON STUDY: MRI the brain August 19, 2017. TECHNIQUE: Helical axial images of the head were obtained following uneventful intravenous administration of 115 cc of Optiray 320. Automated exposure control was utilized for the study. A dose lowering technique was utilized adhering to the principles of ALARA. FINDINGS: No acute intracranial hemorrhage, midline shift or mass effect is present. There is moderate plaque within bilateral cavernous carotids without significant stenosis. The bilateral M1, M2, A1 and A2 segments are patent. There is no dissection or abrupt vessel cut off. No intracranial aneurysm is identified. Posterior circulation is intact. IMPRESSION: 1. No abrupt vessel cut off or intracranial aneurysm. 2. Moderate plaque within bilateral cavernous carotids without severe stenosis. CT head/brain wo con Stat IMPRESSION: No acute intracranial findings. 08/12/18 08:32 MR brain seizure wo/w con Urgent FINDINGS: Signal characteristics are unremarkable. Diffusion-weighted images are considered negative for an acute ischemic event. Despite moderate post motion artifact, the study is considered diagnostic. No abnormal postcontrast enhancement. Mild age-related chronic small vessel change and atrophy. IMPRESSION: Mild age-related chronic small vessel change and atrophy. No acute process. Hospital Course (1) Seizure: Seizures -- patient had seizures in the ER, requiring intubation in the ER admitted to ICU loaded with IV Keppra --- brain MRI unrevealing EEG: No epileptogenic focus noted --- Neurologist consulted --- Keppra 500mg IV BID ordered, changed to p.o. tolerating well no clear etiology of Seizures found at this time needs to ff up with Neurologist Dr. Walker in 4 weeks needs to be reported to [facility] for Roll Out Manager's License suspension Carotid Artery Stenosis --- Neck CTA: 1. 50% stenosis of the proximal left internal carotid artery. Mild stenosis of the proximal right internal carotid artery. 2. Patent bilateral vertebral arteries. 3. No dissection within the neck. 4. Emphysema and mild interstitial pulmonary edema within visualized portions of the lung apices. Postoperative findings within the right upper hemithorax. 5. 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 --- already on ASA and Statin needs to be followed up as outpatient, Vascular Surgery referral Low potassium, phosphorus --Replaced with K-Phos --Calcium is low but albumin is also low corrected calcium 8.6 -- monitor K, Phos, Ca History of non-small cell lung cancer status post right middle and lower lobectomy -- was given Keytruda, which could not tolerate as she developed colitis. Followup with heme/onco -- CT neck: Multiple tiny nodular opacities within lungs are again shown as shown on prior CT. No suspicious osseous lesions are noted. 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 -- slightly elevated as inpatient -- monitor BP on ff up with PCP -- continue Lisinopril and Toprol XL Diabetes - continue usual regimen Hypothyroidism -- continue usual Synthroid GERD -- IV Protonix. Hyperlipidemia -- on Simvastatin Depression -- mood stable Disposition d/c home ff up with PCP in 3-5 days ff up with Neurologist Dr. Moffett in 4 weeks Total Time Total Time Spent Total Time Spent (In Minutes): 30 minutes Discharge Plan Discharge Items Patient Disposition: Home - Self-Care Reason For Visit: CONFUSION, SEIZURE Discharge Diagnosis: SEIZURES Discharge Goals: Diagnostic testing and Therapeutic intervention Activity: As commented below Activity Comment: RESUME ACTIVITY GRADUALLY, NO HEAVY EXERTION, NO OPERATING MACHINERIES Lifting: Wait until after follow-up appointment Exercise/Sports: Wait until after follow-up appointment Driving/Machine Use Comment: NO DRIVING UNTIL CLEARED BY NEUROLOGIST Non-emergency contact: Primary Care Provider Call non-emergency contact if: you have any medication questions, your symptoms worsen and you have a fever Follow-up/Referrals: Danny Ibarra MD [Primary Care Provider] - 08/18/18 12:45 pm Freda Moffett MD [Physician] - Diet: Carb Consistent or DM2 and Heart Healthy Addtl Provider Instructions: PLEASE FOLLOW UP WITH DR. IBARRA SATURDAY AUGUST 18, 2018 AT 1245PM. FOLLOW UP WITH [facility] NEUROLOGIST DR. MOFFETT IN 4 WEEKS. PLEASE CALL HER OFFICE FOR AN APPOINTMENT. CONTACT INFORMATION LISTED ABOVE. NO OPERATING MACHINERIES, SWIMMING, BATHING IN THE TUB. CALL immediately if with recurrence of seizures. CALL primary care physician immediately if with drowsiness, weakness, vomiting, changes in behavior. Prescriptions: New levetiracetam [Keppra] 500 mg Tablet 500 mg PO BID 30 Days Qty: 60 RF: 1 Continue omeprazole 20 mg Capsule,Delayed Release(Dr/Ec) 20 mg PO DAILY RF: 0 escitalopram oxalate 5 mg Tablet 5 mg PO HS RF: 0 mesalamine [Lialda] 1.2 gram Tablet,Delayed Release (Dr/Ec) 4,800 mg PO DAILY RF: 0 levothyroxine 25 mcg Capsule 25 mcg PO DAILY RF: 0 multivitamin Tablet 1 tab PO DAILY RF: 0 cholecalciferol (vitamin D3) 1,000 unit Capsule 1,000 unit PO DAILY RF: 0 glipizide 5 mg tablet 2.5 mg PO BIDM RF: 0 aspirin 81 mg Tablet,Delayed Release (Dr/Ec) 81 mg PO DAILY RF: 0 simvastatin 40 mg Tablet 40 mg PO HS RF: 0 benzonatate [Tessalon Perles] 100 mg Capsule 100 mg PO TID PRN (Reason: Cough) RF: 0 lisinopril 5 mg Tablet 5 mg PO DAILY RF: 0 metoprolol succinate 25 mg Tablet Extended Release 24 Hr 25 mg PO DAILY RF: 0 infliximab-dyyb 100 mg Recon Soln 1 dose IV UD RF: 0 Visit Report Forms: My [employer] [facility] Stand-Alone Forms: [facility] [employer] Discharge Orders: Discharge Order (Routine); Ordered 08/15/18 Ordered By: Franki Majano Admission Data Admit Date/Time: 08/12/18 00:26 Attending Provider: Franki Majano Admit Provider: Nadir Angeles Primary Care Provider: Danny Ibarra Other Providers: Freda Moffett ; Jada Kitchen Service: Telemetry Other Interventions: Discharge Summary Assessment (RN) Last Done: 08/15/18 12:34 DC Date/Time DO NOT enter until pt leaves facility: 08/15/18 15:23
== END 2018-08-15 15:23 | disposition home or self-care (01) | DRG 100 ==
LOC: ED 22:01 → 1E 08-12 00:26 → SUATTDRO 08-12 00:26 → 1E 08-12 00:47 → 2S 08-13 16:00

== ENCOUNTER 2018-11-15 20:06 | Inpatient (IN) ==
[2018-11-15] MEDS ORDERED: SODIUM CHLORIDE 0.9% 1000ML 1,000 ML IV SCH (20:30)
[2018-11-15] MEDS ORDERED: LORazepam 2 MG/ML VIAL (IM USE) ONE (20:32)
--- NOTE | 2018-11-15 20:37 | CT Scan Report ---
CT head/brain wo con CLINICAL HISTORY: 78 years-old Female presenting with stroke alert. TECHNIQUE: Multidetector CT imaging of the head was performed without the use of intravenous contrast . IV contrast: None. One or more dose lowering techniques were used consistent with the principles of ALARA (as low as reasonably achievable), including automatic exposure control, mA or kV adjustment t o individual patient size, and/or use of iterative reconstruction. COMPARISON: 08/11/2018. CT DOSE (mGy.cm): The estimated cumulative dose is 537.48 mGy.cm. FINDINGS: [employer] Associate topogram: Unremarkable. Ventricles and sulci normal in size. No hemorrhage. Brain parenchyma normal in appearance with preser harry flaherty-white differentiation. No acute territorial infarct. No mass effect or midline shift. No ext ra-axial fluid collection. Paranasal sinuses and mastoid air cells clear. Calvarium intact. IMPRESSION: 1. No acute intracranial abnormality. These findings were discussed with charge nurse by Dr. Garcia on 11/15/2018 8:35 PM. Electronically signed by: Fili Garcia M.D. 11/15/2018 8:35 PM
[2018-11-15 20:38] LABS: Basophils # (auto) 0.02 K/uL (0-0.2); Basophils % (auto) 0.4 %; Eosinophils # (auto) 0.16 K/uL (0-0.5); Hemoglobin 9.6 g/dL (12.0-16.0); Lymphocytes # (auto) 2.22 K/uL (1.2-3.4); Mean Corpuscular Volume 80.6 fL (80-100); Mean Platelet Volume 9.3 fL (7.4-10.4); Monocytes # (auto) 0.49 K/uL (0.11-0.59); Monocytes % (auto) 9.3 %; Neutrophils # (auto) 2.39 K/uL (1.4-6.5); Neutrophils % (auto) 45.3 %; Platelet Count 323 K/uL (130-400); RDW Standard Deviation 43.9 fL (36.4-46.3); Red Blood Count 3.72 M/uL (4.2-5.4); White Blood Count 5.28 K/uL (4.8-10.8)
[2018-11-15] MEDS ORDERED: LORazepam 1 MG/2 ML VIAL IV STA (20:40)
[2018-11-15 20:45] LABS: Prothrombin Time 9.8 Seconds (9.0-12.0)
--- NOTE | 2018-11-15 20:51 | XRay Report ---
XR chest 1V portable CLINICAL HISTORY: 78 years-old Female presenting with weakness, stroke alert. TECHNIQUE: Portable upright AP view of the chest was obtained. COMPARISON: 08/12/2018. FINDINGS: Atherosclerosis of the aortic arch. Cardiac silhouette mildly enlarged. Postsurgical changes of the r ight upper lung with rightward mediastinal shift. Coarsened lung markings as on prior exam. No new fo kendal opacity. No large effusion or pneumothorax. Degenerative changes of the thoracic spine. 2 anchor fixation of the right humeral head. A more for this calcification along the course of the left supras pinatus tendon suggesting calcific tendinitis. Mild elevation of the right hemidiaphragm. IMPRESSION: 1. Mild cardiomegaly. No other evidence of acute cardiopulmonary disease. 2. Postsurgical changes of the right hemithorax from prior right middle and lower lobectomies. 3. Coarsened lung markings likely secondary to underlying emphysema. No superimposed infiltrate to s uggest pneumonia. Electronically signed by: Fili Garcia M.D. 11/15/2018 8:49 PM
[2018-11-15 20:53] LABS: Alanine Aminotransferase 27 U/L (12-78); Albumin Level 3.5 gm/dl (3.4-5.0); Aspartate Aminotransferase 32 U/L (15-37); BUN Creatinine Ratio 33.2 (10-20); Blood Urea Nitrogen 39 mg/dl (7-18); Calcium 9.2 mg/dl (8.5-10.1); Carbon Dioxide 28 mmol/L (21-32); Chloride 104 mmol/L (98-107); Est GFR (African American) 51.9; Est GFR (Non-African American) 44.8; Glucose 184 mg/dl (70-99); Magnesium 1.9 mg/dl (1.8-2.4); Potassium 3.9 mmol/L (3.5-5.1); Sodium 139 mmol/L (136-145)
[2018-11-15 21:05] LABS: Albumin Globulin Ratio 0.9 (0.9-2); Alkaline Phosphatase 118 U/L (45-117); Bilirubin,Total 0.1 mg/dl (0.2-1); Globulin 4.1 gm/dl (2.5-4.0); Total Protein 7.6 gm/dl (6.4-8.2); Troponin I < 0.015 ng/ml (0-0.045)
[2018-11-15 21:17] LABS: T4 Free Thyroxine 1.01 ng/dl (0.8-1.6)
[2018-11-15] MEDS ORDERED: OPTIRAY 320 125ml IV PRN (21:38)
--- NOTE | 2018-11-15 21:46 | CT Scan Report ---
CT angio head w con CLINICAL HISTORY: 78 years-old Female presenting with acute cva, unresponsive to commands, confusion. TECHNIQUE: Multidetector CT angiography of the head was performed after the administration of intrave nous contrast. 3-D volumetric and/or maximum intensity projection (MIP) images were subsequently tiago nstructed for review. IV contrast: 119 mL of Optiray 320. One or more dose lowering techniques were u sed consistent with the principles of ALARA (as low as reasonably achievable), including automatic ex posure control, mA or kV adjustment to individual patient size, and/or use of iterative reconstructio n. COMPARISON: Noncontrast CT performed earlier the same day. CT DOSE (mGy.cm): The estimated cumulative dose is 445.42. FINDINGS: Ec Teacher topogram: Unremarkable. Anterior circulation: Atherosclerosis of the cavernous segments of the internal carotid arteries. Int racranial portions of the internal carotid arteries patent to the level of the termini. Anterior cere bral arteries patent. Middle cerebral arteries patent. Anterior communicating artery patent. Posterior circulation: Codominant vertebral arteries. Intradural portions of the vertebral arteries p atent. Posterior inferior cerebellar arteries patent. Basilar artery patent. Anterior inferior cerebe llar arteries poorly visualized. Superior cerebellar arteries patent. Posterior cerebral arteries pat ent. Posterior communicating arteries hypoplastic or aplastic. Dural venous sinuses: Patent. Other: Allowing for the phase of contrast, brain parenchyma within normal limits. Calvarium intact. IMPRESSION: 1. No evidence of aneurysm, focal vessel occlusion, or significant stenosis of the intracranial susan stacey. Electronically signed by: Fili Garcia M.D. 11/15/2018 9:44 PM
--- NOTE | 2018-11-15 21:54 | CT Scan Report ---
CT angio neck with con CLINICAL HISTORY: 78 years-old Female presenting with stroke. TECHNIQUE: Multidetector CT angiography of the neck was performed after the administration of intrave nous contrast. 3-D volumetric and/or maximum intensity projection (MIP) images were subsequently tiago nstructed for review. IV contrast: 119 mL of Optiray 320. One or more dose lowering techniques were u sed consistent with the principles of ALARA (as low as reasonably achievable), including automatic ex posure control, mA or kV adjustment to individual patient size, and/or use of iterative reconstructio n. Stenosis measurements were based on NASCET-like criteria (distal lumen diameter as the denominator for stenosis measurement). COMPARISON: 08/11/2018. CT DOSE (mGy.cm): The estimated cumulative dose is 445.42 mGy.cm. FINDINGS: Motor Equipment Captain topogram: Unremarkable. Aortic arch: Atherosclerosis of the three-vessel aortic arch with patent origins of the branch vessel s. Innominate artery: Patent. Right subclavian artery: Patent. Right common carotid artery: Mild calcified and noncalcified atherosclerotic plaque burden without si gnificant narrowing. Right internal and external carotid arteries: More significant calcified atherosclerotic plaque at th e carotid bifurcation. This results in severe stenosis of the origin of the right external carotid ar chip as on prior exam. The degree of stenosis is not measurable due to the presence of the calcified plaque at its origin (series 4 image 201). Less than 25% stenosis of the proximal right internal waldrop tid artery secondary to calcified atherosclerotic plaque along a limited length less than 1 cm. Left common carotid artery: Mild calcified and noncalcified atherosclerotic plaque burden without sig nificant stenosis. Left internal and external carotid arteries: More significant calcified atherosclerotic plaque at the carotid bifurcation. Less than 25% stenosis of the origin of the left external carotid artery. Less than 70% stenosis of the origin and proximal 2 cm of the left internal carotid artery. Stenoses are m ultifocal and measurement is degraded by the degree of calcified plaque. Left subclavian artery: Patent. Vertebral arteries: Codominant vertebral arteries. Origins and courses of the bilateral vertebral art eries patent. Other: Limited intracranial evaluation within normal limits. Soft tissues of the neck normal allowing for the phase of contrast. Degenerative changes of the cervical spine. Loculated effusion at the rig ht apex. Severe emphysema. Rightward mediastinal shift. IMPRESSION: 1. Less than 70% stenosis of the origin and proximal 2 cm of the left internal carotid artery. 2. Less than 25% stenosis of the origin and proximal right internal carotid artery along a more limi oj length. 3. Patent vertebral arteries. 4. Severe emphysema. Electronically signed by: Fili Garcia M.D. 11/15/2018 9:53 PM
[2018-11-15 22:12] LABS: Appearance Urine Clear (Clear); Bacteria Urine Automated Negative (Negative); Bilirubin Urine Negative (Negative); Blood Urine Negative (Negative); Cast Urine Automated 0 /lpf (0-5); Color Urine Yellow; Epithelial Cell Urine Auto 0-5 /lpf (0-5); Glucose Urine UA Negative (Negative); Ketones Urine Negative (Negative); Leukocyte Esterase Urine Negative (Negative); Nitrite Urine Negative (Negative); Protein Urine 2+ (Negative); RBC Urine Automated 0-4 /hpf (0-4); Specific Gravity Urine 1.031 (1.000-1.030); Urobilinogen Urine Negative (Negative); WBC Urine Automated 0 /hpf (0-5)
--- NOTE | 2018-11-15 23:16 | History & Physical Report ---
Date of Service November 15, 2018 Assessment & Plan (1) Seizure: 78F WAS BROUGHT IN WITH CONFUSION HX OF SEIZURE AND ON KEPPRA HAD BRIEF EPISODE OF TONIC CLONIC SEIZURE IN ER RECEIVED 1GM IV KEPPRA AND IV ATIVAN CLOSE MONITOR IV ATIVAN PRN IV KEPPRA HOME DOSE 500MG BID EEG NEUROLOGY CONSULT Present on Admission?: Yes (2) Acute CVA (cerebrovascular accident): WAS ALSO HAVIBG EXPRESSIVE APHASIA ON PRESENTATION STROKE ALERT WAS CALLED BUT NO TPA OUT OF WINDOW CT HEAD AND CTA HEAD AND NECK UNREMARKABLE FOR ACUTE FINDINGS STROKE WORKUP WITH MRI HEAD, AND ECHO SPEECH EVALUATION PT/OT NEUROCHECKS NEURO CONSULTED MONITOR IN TELE Present on Admission?: Yes (3) History of lobectomy of lung: LUNG CANCER FOLLOWS WITH HEME/ONCO CURRENTLY NOT ON CHEMO Present on Admission?: Yes (4) Diabetes mellitus, type 2: HOLDING HOME PO MEDS PLACED ON ISS CURRENTLY WILL ONITOR Present on Admission?: Yes (5) Hypothyroidism: PLACED ON IV SYNTHYROID Present on Admission?: Yes (6) Depression: CURRENTLY NOT ON MEDS WILL MONITOR Present on Admission?: No (7) Hyperlipidemia: ON ZOCOR FOLLOW LIPID PROFILE Present on Admission?: Yes (8) GERD (gastroesophageal reflux disease): PPI Present on Admission?: Yes (9) HTN (hypertension): ON TOPROL AND LISINOPRIL HOLDING LISINOPRIL- IF MRI NEGATIVE FOR CVA CAN RESTART LISINOPRIL TODAY - Present on Admission?: Yes (10) Colitis: KEYTRUDA INDUCED CURRENTLY ON REMICADE INFUSIONS AND LIALDA AND DOING FINE Present on Admission?: Yes History of Present Illness Chief Complaint: confusion Primary Care Provider: Danny Ibarra MD HISTORY OF PRESENT ILLNESS: This is a 78-year-old female with past medical history significant for lung cancer status post right-sided lower and middle lobe resection and was given Keytruda , but she developed colitis and last dose of Keytruda was given on 12/2017. For colitis, she was initially treated with steroids but as soon as her steroids were tapered she had several episodes of diarrhea and colitis was back, so she is currently on Remicade infusions and on Lialda and she is doing okay with that and follows with Dr. Contreras, and she has history of diabetes, hyperlipidemia, hypertension and in June 2018 she had an episode of confusion and her family doctor ordered Ziopatch monitor echocardiogram, and MRI was performed. 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 On Aug 12 2018 Patient was brought to [facility] ER for confusion. Went to neighbor confused) and in ER she had an seizure episode and was intubated. Was started on keppra. MRI and EEG were unremarkable. She did fine and was discharged. Today again she went to her neighbor around 7pm and was confused. But told her she did not want to go through same thing.Neighbor called the sisters and was brought to Er. In The Er she was confused and seemed to have expressive aphasia. Last well know was in the afternoon, she went to yazidism with sister and then had lunch. Stroke alert was called.Ct head no acute findings. [place] [facility]ist advised for CTA head and neck and to call them if any acute findings. But nothing acute showed on those imaging studies. But patient had an brief episode of tonic-clonic seizures in Er when she was given 1gm of iv keppra and iv ativan. Currently somewhat drowsy but arousable and mumbles words.Not obeying commands. Sisters in room and as per them she is taking her medications regularly. ats fine. Ambulates fine and was doing ok. No complaints until this episode. Currently she is not getting any treatment for her lung cancer.Hemodynamics stable in ER.Enedelia lives alone. Allergies Allergy/AdvReac Type Severity Reaction Status Date / Time No Known Allergies Allergy Unverified 11/15/18 20:52 Home Medications Home Medications Medication Instructions Recorded Confirmed Type cholecalciferol (vitamin D3) 1,000 unit PO DAILY 04/27/18 11/15/18 History levothyroxine 25 mcg PO DAILY 04/27/18 11/15/18 History mesalamine [Lialda] 4 tab PO DAILY 04/27/18 11/15/18 History multivitamin 1 tab PO DAILY 04/27/18 11/15/18 History omeprazole 20 mg PO DAILY 04/27/18 11/15/18 History aspirin 81 mg PO DAILY 08/11/18 11/15/18 History glipizide 2.5 mg PO BIDM 08/11/18 11/15/18 History lisinopril 5 mg PO DAILY 08/11/18 11/15/18 History metoprolol succinate 25 mg PO DAILY 08/11/18 11/15/18 History simvastatin 40 mg PO HS 08/11/18 11/15/18 History levetiracetam 500 mg PO BID 11/15/18 11/15/18 History Past Med/Surg History Medical History Seizure Diabetes mellitus, type 2 Hypothyroidism Depression Hyponatremia (Chronic) GI bleed Arthritis DM II (diabetes mellitus, type II), controlled High cholesterol Hypertension Hypothyroidism Non-small cell cancer of right lung S/p lower and middle lung lobe resection in Jun 2017 Ulcerative colitis Weight loss, unintentional Surgical History History of lobectomy of lung Family History Other Heart disease Social History Preferred Language: Armenian Communication Ability: Impaired Communication Ability Comment: CRESCENCIO, pt is minimally responisve; postictal/received ativan Allergy And Immunology Specialist Required: No Beliefs That Will Affect Care: Sikh marital status: / Current Living Situation: Alone Feels Safe at Home: Yes Smoking Status: Former smoker Hx Alcohol Use: No Hx Substance Use: No Review of Systems UNOBTAINABLE AT THIS TIME Physical Exam Vital Signs (Past 24 Hours): Last Vital Signs Temp 36.8 C 11/15/18 20:07 Pulse 100 H 11/15/18 23:15 Resp 20 11/15/18 23:15 BP 137/73 11/15/18 23:15 Pulse Ox 95 11/15/18 23:15 Physical Exam: General- DROWSY, OPENS EYES AND MUMBLES Head- atraumatic Eyes- PERRL, anicteric Neck- supple, no JVD, no adenopathy, carotids +2/2, no bruits appreciated Lungs- clear to auscultation and percussion Heart- regular rhythm; no murmur, no gallop, no rub appreciated Abdomen- normal bowel sounds, soft, no masses Extremities- no pretibial edema, no erythema Neuro- drowsy but arousable mumbles few words, not obeying commands Skin- warm & dry Results & Data Laboratory Results Laboratory Results - last 24 hr 11/15/18 11/15/18 11/15/18 20:10 20:21 20:21 WBC RBC Hgb Hct MCV MCH MCHC RDW Std Deviation RDW Coeff of Timothy Plt Count MPV Immature Gran % (Auto) Neut % (Auto) Lymph % (Auto) [place] % (Auto) Eos % (Auto) Baso % (Auto) Immature Gran # (Auto) Neut # (Auto) Lymph # (Auto) [place] # (Auto) Eos # (Auto) Baso # (Auto) RBC Morphology PT 9.8 INR 1.0 Sodium Potassium Chloride Carbon Dioxide Anion Gap BUN Creatinine Est Cr Clr Drug Dosing Est GFR ( Amer) Est GFR (Non-Af Amer) BUN/Creatinine Ratio Glucose POC Glucose 197 H Calcium Magnesium Total Bilirubin AST ALT Alkaline Phosphatase Troponin I Total Protein Albumin Globulin Albumin/Globulin Ratio Triglycerides Cholesterol LDL Cholesterol, Calc VLDL Cholesterol, Calc HDL Cholesterol Cholesterol/HDL Ratio TSH Free T4 Urine Color Urine Appearance Urine pH Ur Specific [place] Urine Protein Urine Glucose (UA) Urine Ketones Urine Blood Urine Nitrite Urine Bilirubin Urine Urobilinogen Ur Leukocyte Esterase Urine WBC (Auto) Urine RBC (Auto) U Hyaline Cast (Auto) U Epithel Cells (Auto) Urine Bacteria (Auto) Blood Type O Positive Antibody Screen NEGATIVE 11/15/18 11/15/18 11/15/18 20:21 20:21 21:50 WBC 5.28 RBC 3.72 L Hgb 9.6 L Hct 30.0 L MCV 80.6 MCH 25.8 MCHC 32.0 RDW Std Deviation 43.9 RDW Coeff of Timothy 15.0 H Plt Count 323 MPV 9.3 Immature Gran % (Auto) 0.0 Neut % (Auto) 45.3 Lymph % (Auto) 42.0 [place] % (Auto) 9.3 Eos % (Auto) 3.0 Baso % (Auto) 0.4 Immature Gran # (Auto) 0.00 Neut # (Auto) 2.39 Lymph # (Auto) 2.22 [place] # (Auto) 0.49 Eos # (Auto) 0.16 Baso # (Auto) 0.02 RBC Morphology PT INR Sodium 139 Potassium 3.9 Chloride 104 Carbon Dioxide 28 Anion Gap 7.0 BUN 39 H Creatinine 1.18 Est Cr Clr Drug Dosing Not Reportable Est GFR ( Amer) 51.9 Est GFR (Non-Af Amer) 44.8 BUN/Creatinine Ratio 33.2 H Glucose 184 H POC Glucose Calcium 9.2 Magnesium 1.9 Total Bilirubin 0.1 L AST 32 ALT 27 Alkaline Phosphatase 118 H Troponin I < 0.015 Total Protein 7.6 Albumin 3.5 Globulin 4.1 H Albumin/Globulin Ratio 0.9 Triglycerides Cholesterol LDL Cholesterol, Calc VLDL Cholesterol, Calc HDL Cholesterol Cholesterol/HDL Ratio TSH 5.990 H Free T4 1.01 Urine Color Yellow Urine Appearance Clear Urine pH 7.0 Ur Specific [place] 1.031 H Urine Protein 2+ H Urine Glucose (UA) Negative Urine Ketones Negative Urine Blood Negative Urine Nitrite Negative Urine Bilirubin Negative Urine Urobilinogen Negative Ur Leukocyte Esterase Negative Urine WBC (Auto) 0 Urine RBC (Auto) 0-4 U Hyaline Cast (Auto) 0 U Epithel Cells (Auto) 0-5 Urine Bacteria (Auto) Negative Blood Type Antibody Screen 11/16/18 11/16/18 11/16/18 05:25 05:25 05:56 WBC 7.44 RBC 3.43 L Hgb 8.8 L Hct 27.5 L MCV 80.2 MCH 25.7 MCHC 32.0 RDW Std Deviation 43.7 RDW Coeff of Timothy 15.1 H Plt Count 274 MPV 9.2 Immature Gran % (Auto) 0.3 Neut % (Auto) 58.9 Lymph % (Auto) 31.5 [place] % (Auto) 8.3 Eos % (Auto) 0.9 Baso % (Auto) 0.1 Immature Gran # (Auto) 0.02 Neut # (Auto) 4.38 Lymph # (Auto) 2.34 [place] # (Auto) 0.62 H Eos # (Auto) 0.07 Baso # (Auto) 0.01 RBC Morphology Unremarkable PT INR Sodium 141 Potassium 3.9 Chloride 108 H Carbon Dioxide 28 Anion Gap 5.0 BUN 34 H Creatinine 0.90 Est Cr Clr Drug Dosing 44.0 Est GFR ( Amer) 72.0 Est GFR (Non-Af Amer) 62.1 BUN/Creatinine Ratio 38.3 H Glucose 132 H POC Glucose 147 H Calcium 8.9 Magnesium Total Bilirubin AST ALT Alkaline Phosphatase Troponin I Total Protein Albumin Globulin Albumin/Globulin Ratio Triglycerides 157 H Cholesterol 159 LDL Cholesterol, Calc 72 VLDL Cholesterol, Calc 31 HDL Cholesterol 56 Cholesterol/HDL Ratio 3 TSH Free T4 Urine Color Urine Appearance Urine pH Ur Specific [place] Urine Protein Urine Glucose (UA) Urine Ketones Urine Blood Urine Nitrite Urine Bilirubin Urine Urobilinogen Ur Leukocyte Esterase Urine WBC (Auto) Urine RBC (Auto) U Hyaline Cast (Auto) U Epithel Cells (Auto) Urine Bacteria (Auto) Blood Type Antibody Screen Diagnostic Findings CT HEAD: No acute intracranial abnormality. CXR: 1. Mild cardiomegaly. No other evidence of acute cardiopulmonary disease. 2. Postsurgical changes of the right hemithorax from prior right middle and lower lobectomies. 3. Coarsened lung markings likely secondary to underlying emphysema. No superimposed infiltrate to suggest pneumonia. HEAD CTA: No evidence of aneurysm, focal vessel occlusion, or significant stenosis of the intracranial arteries. NECK CTA:1. Less than 70% stenosis of the origin and proximal 2 cm of the left internal carotid artery. 2. Less than 25% stenosis of the origin and proximal right internal carotid artery along a more limited length. 3. Patent vertebral arteries. 4. Severe emphysema. ECG Additional Comments: ECG: NSR WITH PVC'S AT RATE OF 90. Code Status & VTE Plan Code Status FULL CODE
--- NOTE | 2018-11-15 23:17 | Emergency Department Note ---
Entered by Lamin Alvarez acting as a scribe for ED Provider Note CHIEF COMPLAINT: Confusion, stroke like symptoms HISTORY OF PRESENT ILLNESS: The patient is a 78 year old female who presents to the Emergency Room for stroke-like symptoms that were first noticed at 1930, 45 minutes ago. The patient presents with her sister and neighbor. The patient's neighbor states that the patient walked to her house this evening at 1930, 45 minutes ago and knocked on the front door. At this time the patient was very confused and was asking a lot of questions/exhibiting repetitive speech. The patient was not following commands at this time or answering the neighbor's questions. The neighbor notes that the patient walked to her house and then to the car without issue. The sister states that she went to mosque with the patient this morning, and dropped her off at home at 1130 this morning, 8 hours and 45 minutes ago. The patient was not seen from 1130 this morning until 1930. Upon arrival to the ED the patient is not following commands and is repeating "I'm sorry" over and over again. The sister does add that the patient maybe has a slight left-sided facial droop. The patient has a history of seizures, but has never had a stroke. Her last seizure episode was in August, 3 years ago. She is on a Baby Aspirin daily, no other anticoagulation therapy. REVIEW OF SYSTEMS: See HPI for pertinent positives and negatives. A total of ten systems were reviewed and were otherwise negative. PMHx/PSHx: Seizure HTN Diabetes Status Epilepticus Hypoxia SASHA Hypocalcemia Hypophosphatemia Hypomagnesemia SOCIAL HISTORY: Patient lives at home. PHYSICAL EXAM: GENERAL: Awake, alert, HENT: Normocephalic, atraumatic. Oropharynx unremarkable. EYES: PERRL. Normal conjunctiva. Sclera non-icteric. NECK: Inspection normal. Non-tender. Supple. No nuchal rigidity. FROM. No masses. RESPIRATORY: Clear to auscultation. No wheezes. No rales. Normal respiratory effort. CARDIAC: Normal rate. Normal rhythm. No murmurs. No rubs. Extremities warm and well perfused. Pulses equal. No JVD. GI: Soft, non-distended. No tenderness to palpation. No rebound or guarding. No masses. RECTAL: Deferred. MUSCULOSKELETAL: Atraumatic. Chest examination reveals no tenderness. The back is symmetrical on inspection without obvious abnormality. There is no CVA tenderness to palpation. No joint edema. LOWER EXTREMITIES: Calves are equal size bilaterally and non-tender. No edema. No discoloration. NEURO: Mild left facial droop. No Pronator Drift. Expressive and receptive aphasia. Not following commands. SKIN: No rash or jaundice noted. EMERGENCY DEPARTMENT COURSE: 2013: Past medical records reviewed. The patient was evaluated in room A1, and a complete history and physical examination were performed. 2026: I discussed the case with Dr. Phan - Stroke Neurology. He states that given the last known well time TPA is not indicated. He suggests continuing with stroke work-up. 2211: I reviewed the patient's case with Dr. Angeles - [facility] Hospitalist. He will evaluate the patient for further management. MEDICAL DECISION MAKING: Prior records/ancillary studies reviewed and summarized above. Nursing notes reviewed and agree them. Additional history obtained from family. The patient's history was concerning for weakness. Differential diagnosis: Etiologies such as CVA, TIA, metabolic, infection, hypo/hyperglycemia, electrolyte abnormalities, cardiac sources, intracerebral event, toxicologic, neurologic, as well as others were entertained. Physical examination: As above. Expressive aphasia present. ER treatment provided: IV Lock Normal saline hydration IV Ativan Iv Keppra Cardiac monitoring On reassessment the patient was stable. Diagnostics interpretation by me: ECG: No ischemia or dysrhythmia. The labs revealed an unremarkable CBC and chemistry panel except for mild anemia. Urinalysis negative. Imaging studies: CT scan as well as CT angiograms performed. No obvious acute pathology noted. No obvious vessel cut off. Chest x-ray performed. Chronic changes noted. A stroke alert was initiated. The patient was evaluated. She unfortunately had the last well-known time of over 8 hours ago. The patient was sent to CT imaging emergently. This was negative. After coming back from CT imaging the patient had a grand mal seizure. This lasted less than a minute. She was given a dose of IV Ativan and IV Keppra. She came out of this nicely. She was still having the strokelike symptoms. While the patient was in CT imaging I did consult with her she neurology via tele-stroke. The stroke neurologist, Dr. Phan agreed that the patient is out of the window for TPA. If her CT angiogram would reveal anything abnormal then the patient could potentially be transferred for intervention. Unfortunately the patient CT angiogram did not reveal any amenable blockages. I did inform the patient's family. Stroke care and workup was recommended by [place] neurology. [facility] The patient was evaluated in the ER for further management. Consultation: A consultation was placed with the [facility], Dr. Angeles. the case was discussed and diagnostics were reviewed. The patient was evaluated in the ER for further treatment. IMPRESSION: CVA Seizure Anemia PLAN: Admit to medicine. I have personally spent greater than 60 minutes of critical care time in the direct management of this patient. This includes bedside care, interpretation of diagnostic studies, and testing, discussion with consultants, patient, and family members, and other required patient management activities. This 60 minutes is in excess of all separately billable procedures. The scribe's documentation has been prepared under my direction and personally reviewed by me in its entirety. I confirm that the note above accurately re flects all work, treatment, procedures, and medical decision making performed by me. Impression & Plan Acute CVA (cerebrovascular accident), Seizure, Anemia Past Med/Surg History Medical History Hyponatremia (Chronic) Arthritis DM II (diabetes mellitus, type II), controlled Depression Diabetes mellitus, type 2 GI bleed High cholesterol Hypertension Hypothyroidism Hypothyroidism Non-small cell cancer of right lung S/p lower and middle lung lobe resection in Jun 2017 Ulcerative colitis Weight loss, unintentional Surgical History History of lobectomy of lung Family History Other Heart disease Social History Preferred Language: [place] Communication Ability: Impaired Communication Ability Comment: CRESCENCIO, pt is minimally responisve; postictal/received ativan Unemployment Inspector Required: No Beliefs That Will Affect Care: Mandaeism marital status: / Current Living Situation: Alone Feels Safe at Home: Yes Smoking Status: Former smoker Hx Alcohol Use: No Hx Substance Use: No Results & Data Vital Signs Vital Signs - 24 hr 11/15/18 20:07 11/15/18 20:20 11/15/18 20:27 Temperature 36.8 C Temperature Source Oral Sepsis Recent Fever Within 48 Hours No Sepsis New/Unexplained Change in Mental Status No Sepsis Action Taken by Nursing No Action Required Pulse Rate 81 Pulse Rate [Right Finger] Pulse Rhythm [Right Finger] Pulse Strength [Right Finger] Respiratory Rate 18 Respiratory Effort / Characteristics Respiratory Depth Respiratory Pattern Blood Pressure 171/72 H Blood Pressure [Right Arm] Blood Pressure Mean 105 Blood Pressure Mean [Right Arm] Pulse Oximetry 100 96 Oxygen Delivery Method Room Air Room Air Oxygen Flow Rate 11/15/18 20:38 11/15/18 20:48 11/15/18 21:00 Temperature Temperature Source Sepsis Recent Fever Within 48 Hours Sepsis New/Unexplained Change in Mental Status Sepsis Action Taken by Nursing Pulse Rate Pulse Rate [Right Finger] 87 Pulse Rhythm [Right Finger] Regular Pulse Strength [Right Finger] Normal Respiratory Rate 22 Respiratory Effort / Characteristics Non-Labored Spontaneous Respiratory Depth Normal Respiratory Pattern Regular Blood Pressure Blood Pressure [Right Arm] 177/66 H Blood Pressure Mean Blood Pressure Mean [Right Arm] 103 Pulse Oximetry 100 98 86 L Oxygen Delivery Method Non-rebreather Nasal Cannula Nasal Cannula Oxygen Flow Rate 10 3 3 11/15/18 21:01 11/15/18 21:40 11/15/18 22:00 Temperature Temperature Source Sepsis Recent Fever Within 48 Hours Sepsis New/Unexplained Change in Mental Status Sepsis Action Taken by Nursing Pulse Rate Pulse Rate [Right Finger] 92 H 105 H 102 H Pulse Rhythm [Right Finger] Regular Regular Regular Pulse Strength [Right Finger] Normal Normal Respiratory Rate 22 22 22 Respiratory Effort / Characteristics Spontaneous Non-Labored Spontaneous Non-Labored Spontaneous Respiratory Depth Normal Normal Normal Respiratory Pattern Regular Regular Blood Pressure Blood Pressure [Right Arm] 171/70 H 176/86 H 165/74 H Blood Pressure Mean Blood Pressure Mean [Right Arm] 103 116 104 Pulse Oximetry 98 99 94 Oxygen Delivery Method Non-rebreather Non-rebreather Nasal Cannula Oxygen Flow Rate 15 10 4 11/15/18 22:41 Temperature Temperature Source Sepsis Recent Fever Within 48 Hours Sepsis New/Unexplained Change in Mental Status Sepsis Action Taken by Nursing Pulse Rate Pulse Rate [Right Finger] Pulse Rhythm [Right Finger] Pulse Strength [Right Finger] Respiratory Rate Respiratory Effort / Characteristics Respiratory Depth Respiratory Pattern Regular Blood Pressure Blood Pressure [Right Arm] Blood Pressure Mean Blood Pressure Mean [Right Arm] Pulse Oximetry Oxygen Delivery Method Nasal Cannula Oxygen Flow Rate 4 Home Medications Current Medication List: was personally reviewed by me Laboratory Data Attestation: I reviewed the patient's lab results. Result diagrams: 11/15/18 20:21 11/15/18 20:21 Lab Results 11/15/18 11/15/18 11/15/18 Range/Units 20:10 20:21 20:21 WBC (4.8-10.8) K/uL RBC (4.2-5.4) M/uL Hgb (12.0-16.0) g/dL Hct (37-47) % MCV (80-100) fL MCH (25-34) pg MCHC (32-36) g/dL RDW Std Deviation (36.4-46.3) fL RDW Coeff of Timothy (11.5-14.5) % Plt Count (130-400) K/uL MPV (7.4-10.4) fL Immature Gran % (Auto) % Neut % (Auto) % Lymph % (Auto) % Yancey % (Auto) % Eos % (Auto) % Baso % (Auto) % Immature Gran # (Auto) (0.00-0.02) K/uL Neut # (Auto) (1.4-6.5) K/uL Lymph # (Auto) (1.2-3.4) K/uL Yancey # (Auto) (0.11-0.59) K/uL Eos # (Auto) (0-0.5) K/uL Baso # (Auto) (0-0.2) K/uL PT 9.8 (9.0-12.0) Seconds INR 1.0 (0.9-1.1) Sodium (136-145) mmol/L Potassium (3.5-5.1) mmol/L Chloride (98-107) mmol/L Carbon Dioxide (21-32) mmol/L Anion Gap (3-11) BUN (7-18) mg/dl Creatinine (0.6-1.2) mg/dl Est Cr Clr Drug Dosing Est GFR ( Amer) Est GFR (Non-Af Amer) BUN/Creatinine Ratio (10-20) Glucose (70-99) mg/dl POC Glucose 197 H (70-99) Calcium (8.5-10.1) mg/dl Magnesium (1.8-2.4) mg/dl Total Bilirubin (0.2-1) mg/dl AST (15-37) U/L ALT (12-78) U/L Alkaline Phosphatase (45-117) U/L Troponin I (0-0.045) ng/ml Total Protein (6.4-8.2) gm/dl Albumin (3.4-5.0) gm/dl Globulin (2.5-4.0) gm/dl Albumin/Globulin Ratio (0.9-2) TSH (0.300-4.500) uIu/ml Free T4 (0.8-1.6) ng/dl Urine Color Urine Appearance (Clear) Urine pH (4.5-7.5) Ur Specific [place] (1.000-1.030) Urine Protein (Negative) Urine Glucose (UA) (Negative) Urine Ketones (Negative) Urine Blood (Negative) Urine Nitrite (Negative) Urine Bilirubin (Negative) Urine Urobilinogen (Negative) Ur Leukocyte Esterase (Negative) Urine WBC (Auto) (0-5) /hpf Urine RBC (Auto) (0-4) /hpf U Hyaline Cast (Auto) (0-5) /lpf U Epithel Cells (Auto) (0-5) /lpf Urine Bacteria (Auto) (Negative) Blood Type O Positive Antibody Screen NEGATIVE 11/15/18 11/15/18 11/15/18 Range/Units 20:21 20:21 21:50 WBC 5.28 (4.8-10.8) K/uL RBC 3.72 L (4.2-5.4) M/uL Hgb 9.6 L (12.0-16.0) g/dL Hct 30.0 L (37-47) % MCV 80.6 (80-100) fL MCH 25.8 (25-34) pg MCHC 32.0 (32-36) g/dL RDW Std Deviation 43.9 (36.4-46.3) fL RDW Coeff of Timothy 15.0 H (11.5-14.5) % Plt Count 323 (130-400) K/uL MPV 9.3 (7.4-10.4) fL Immature Gran % (Auto) 0.0 % Neut % (Auto) 45.3 % Lymph % (Auto) 42.0 % Yancey % (Auto) 9.3 % Eos % (Auto) 3.0 % Baso % (Auto) 0.4 % Immature Gran # (Auto) 0.00 (0.00-0.02) K/uL Neut # (Auto) 2.39 (1.4-6.5) K/uL Lymph # (Auto) 2.22 (1.2-3.4) K/uL Yancey # (Auto) 0.49 (0.11-0.59) K/uL Eos # (Auto) 0.16 (0-0.5) K/uL Baso # (Auto) 0.02 (0-0.2) K/uL PT (9.0-12.0) Seconds INR (0.9-1.1) Sodium 139 (136-145) mmol/L Potassium 3.9 (3.5-5.1) mmol/L Chloride 104 (98-107) mmol/L Carbon Dioxide 28 (21-32) mmol/L Anion Gap 7.0 (3-11) BUN 39 H (7-18) mg/dl Creatinine 1.18 (0.6-1.2) mg/dl Est Cr Clr Drug Dosing Not Reportable Est GFR ( Amer) 51.9 Est GFR (Non-Af Amer) 44.8 BUN/Creatinine Ratio 33.2 H (10-20) Glucose 184 H (70-99) mg/dl POC Glucose (70-99) Calcium 9.2 (8.5-10.1) mg/dl Magnesium 1.9 (1.8-2.4) mg/dl Total Bilirubin 0.1 L (0.2-1) mg/dl AST 32 (15-37) U/L ALT 27 (12-78) U/L Alkaline Phosphatase 118 H (45-117) U/L Troponin I < 0.015 (0-0.045) ng/ml Total Protein 7.6 (6.4-8.2) gm/dl Albumin 3.5 (3.4-5.0) gm/dl Globulin 4.1 H (2.5-4.0) gm/dl Albumin/Globulin Ratio 0.9 (0.9-2) TSH 5.990 H (0.300-4.500) uIu/ml Free T4 1.01 (0.8-1.6) ng/dl Urine Color Yellow Urine Appearance Clear (Clear) Urine pH 7.0 (4.5-7.5) Ur Specific [place] 1.031 H (1.000-1.030) Urine Protein 2+ H (Negative) Urine Glucose (UA) Negative (Negative) Urine Ketones Negative (Negative) Urine Blood Negative (Negative) Urine Nitrite Negative (Negative) Urine Bilirubin Negative (Negative) Urine Urobilinogen Negative (Negative) Ur Leukocyte Esterase Negative (Negative) Urine WBC (Auto) 0 (0-5) /hpf Urine RBC (Auto) 0-4 (0-4) /hpf U Hyaline Cast (Auto) 0 (0-5) /lpf U Epithel Cells (Auto) 0-5 (0-5) /lpf Urine Bacteria (Auto) Negative (Negative) Blood Type Antibody Screen Administered Medications Sodium Chloride (Nss 1000ml) 1,000 mls @ 125 mls/hr IV .Q8H JENNIFER Stop: 11/16/18 04:29 Last Admin: 11/15/18 20:31 Dose: 125 mls/hr Documented by: [id number] Ioversol (Optiray 320 125ml) 119 ml IV ONCE PRN PRN Reason: Interaction Checking Stop: 11/19/18 21:37 Last Admin: 11/15/18 21:38 Dose: 119 ml Documented by: [id number] Discontinued Medications Levetiracetam 1,000 mg/ (Dextrose) 110 mls @ 440 mls/hr IV NOW STA Stop: 11/15/18 20:50 Last Infusion: 11/15/18 21:01 Dose: 0 mls/hr Documented by: [id number] Admin: 11/15/18 20:46 Dose: 440 mls/hr Documented by: [id number] Lorazepam (Ativan) 1 mg in 2 mls @ 2 mls/min IV NOW STA Stop: 11/15/18 20:41 Last Admin: 11/15/18 20:41 Dose: Not Given Documented by: [id number] Lorazepam (Ativan) Confirm Administered Dose 2 mg .ROUTE .STK-MED ONE Stop: 11/15/18 20:33 Last Admin: 11/15/18 20:36 Dose: 1 mg Documented by: [id number] Imaging Data Attestation: I personally reviewed and interpreted this imaging study as follows: Radiologist's Impression: CT head/brain wo con CLINICAL HISTORY: 78 years-old Female presenting with stroke alert. TECHNIQUE: Multidetector CT imaging of the head was performed without the use of intravenous contrast. IV contrast: None. One or more dose lowering techniques were used consistent with the principles of ALARA (as low as reasonably achie vable), including automatic exposure control, mA or kV adjustment to individual patient size, and/or use of iterative reconstruction. COMPARISON: 08/11/2018. CT DOSE (mGy.cm): The estimated cumulative dose is 537.48 mGy.cm. FINDINGS: [employer] topogram: Unremarkable. Ventricles and sulci normal in size. No hemorrhage. Brain parenchyma normal in appearance with preserved flaherty-white differentiation. No acute territorial infarct. No mass effect or midline shift. No extra-axial fluid collection. Par anasal sinuses and mastoid air cells clear. Calvarium intact. IMPRESSION: 1. No acute intracranial abnormality. These findings were discussed with charge nurse by Dr. Garcia on 11/15/2018 8:35 PM. Electronically signed by: Fili Garcia M.D. 11/15/2018 8:35 PM XR chest 1V portable CLINICAL HISTORY: 78 years-old Female presenting with weakness, stroke alert. TECHNIQUE: Portable upright AP view of the chest was obtained. COMPARISON: 08/12/2018. FINDINGS: Atherosclerosis of the aortic arch. Cardiac silhouette mildly enlarged. Postsurgical changes of the right upper lung with rightward mediastinal shift. Coarsened lung markings as on prior exam. No new focal opacity. No large effusion or pneumothorax. Degenerative changes of the thoracic spine. 2 anchor fixation of the right humeral head. A more for this calcification along the course of the left supraspinatus tendon suggesting calcific tendinitis. Mild elevation of the right hemidiaphragm. IMPRESSION: 1. Mild cardiomegaly. No other evidence of acute cardiopulmonary disease. 2. Postsurgical changes of the right hemithorax from prior right middle and lower lobectomies. 3. Coarsened lung markings likely secondary to underlying emphysema. No superimposed infiltrate to suggest pneumonia. Electronically signed by: Fili Garcia M.D. 11/15/2018 8:[address] angio head w con CLINICAL HISTORY: 78 years-old Female presenting with acute cva, unresponsive to commands, confusion. TECHNIQUE: Multidetector CT angiography of the head was performed after the admi nistration of intravenous contrast. 3-D volumetric and/or maximum intensity projection (MIP) images were subsequently reconstructed for review. IV contrast: 119 mL of Optiray 320. One or more dose lowering techniques were used consistent with the principles of ALARA (as low as reasonably achievable), including automatic exposure control, mA or kV adjustment to individual patient size, and/or use of iterative reconstruction. COMPARISON: Noncontrast CT performed earlier the same day. CT DOSE (mGy.cm): The estimated cumulative dose is 445.42. FINDINGS: [employer] Operator topogram: Unremarkable. Anterior circulation: Atherosclerosis of the cavernous segments of the internal carotid arteries. Intracranial portions of the internal carotid arteries patent to the level of the termini. Anterior cerebral arteries patent. Middle cerebral arteries patent. Anterior communicating artery patent. Posterior circulation: Codominant vertebral arteries. Intradural portions of the vertebral arteries patent. Posterior inferior cerebellar arteries patent. Basilar artery patent. Anterior inferior cerebellar arteries poorly visualized. Superior cerebellar arteries patent. Posterior cerebral arteries patent. Poste rior communicating arteries hypoplastic or aplastic. Dural venous sinuses: Patent. Other: Allowing for the phase of contrast, brain parenchyma within normal limits. Calvarium intact. IMPRESSION: 1. No evidence of aneurysm, focal vessel occlusion, or significant stenosis of the intracranial arteries. Electronically signed by: Fili Garcia M.D. 11/15/2018 9:[address] angio neck with con CLINICAL HISTORY: 78 years-old Female presenting with stroke. TECHNIQUE: Multidetector CT angiography of the neck was performed after the administration of intravenous contrast. 3-D volumetric and/or maximum intensity projection (MIP) images were subsequently reconstructed for review. IV contrast: 119 mL of Optiray 320. One or more dose lowering techniques were used consistent with the principles of ALARA (as low as reasonably achievable), including automatic exposure control, mA or kV adjustment to individual patient size, and/or use of iterative reconstruction. Stenosis measurements were based on NASCET-like criteria (distal lumen diameter as the denominator for stenosis measurement). COMPARISON: 08/11/2018. CT DOSE (mGy.cm): The estimated cumulative dose is 445.42 mGy.cm. FINDINGS: [employer] topogram: Unremarkable. Aortic arch: Atherosclerosis of the three-vessel aortic arch with patent origins of the branch vessels. Innominate artery: Patent. Right subclavian artery: Patent. Right common carotid artery: Mild calcified and noncalcified atherosclerotic plaque burden without significant narrowing. Right internal and external carotid arteries: More significant calcified atherosclerotic plaque at the carotid bifurcation. This results in severe sten osis of the origin of the right external carotid artery as on prior exam. The degree of stenosis is not measurable due to the presence of the calcified plaque at its origin (series 4 image 201). Less than 25% stenosis of the proximal right internal carotid artery secondary to calcified atherosclerotic plaque along a limited length less than 1 cm. Left common carotid artery: Mild calcified and noncalcified atherosclerotic plaque burden without significant stenosis. Left internal and external carotid arteries: More significant calcified atherosclerotic plaque at the carotid bifurcation. Less than 25% stenosis of the origin of the left external carotid artery. Less than 70% stenosis of the origin and proximal 2 cm of the left internal carotid artery. Stenoses are multifocal and measurement is degraded by the degree of calcified plaque. Left subclavian artery: Patent. Vertebral arteries: Codominant vertebral arteries. Origins and courses of the bilateral vertebral arteries patent. Other: Limited intracranial evaluation within normal limits. Soft tissues of the neck normal allowing for the phase of contrast. Degenerative changes of the cervical spine. Loculated effusion at the right apex. Severe emphysema. Rightward mediastinal shift. IMPRESSION: 1. Less than 70% stenosis of the origin and proximal 2 cm of the left internal carotid artery. 2. Less than 25% stenosis of the origin and proximal right internal carotid artery along a more limited length. 3. Patent vertebral arteries. 4. Severe emphysema. Electronically signed by: Fili Garcia M.D. 11/15/2018 9:53 PM ECG Data Attestation: I personally reviewed and interpreted this ECG as follows: Indication: altered mental status (Stroke Sx) Rate (beats per minute): 90 Rhythm: normal sinus Findings: no PAC, no PVC, no ST depression and no ST elevation Blood Pressure Blood Pressure Findings: Elevated blood pressure Blood Pressure Disposition: further management by hospitalist Discharge Plan Visit Data Chief Complaint: Confusion Stated Complaint: CONFUSED ED Provider: Faisal Cedeno Discharge Problem: Acute CVA (cerebrovascular accident), Seizure, Anemia Patient Disposition: Being Evaluated by Hospitalist Forms Stand Alone Forms: My [facility] Prescriptions Prescriptions: No Action omeprazole 20 mg Capsule,Delayed Release(Dr/Ec) 20 mg PO DAILY RF: 0 mesalamine [Lialda] 1.2 gram Tablet,Delayed Release (Dr/Ec) 4 tab PO DAILY RF: 0 levothyroxine 25 mcg Capsule 25 mcg PO DAILY RF: 0 multivitamin Tablet 1 tab PO DAILY RF: 0 cholecalciferol (vitamin D3) 1,000 unit Capsule 1,000 unit PO DAILY RF: 0 levetiracetam 500 mg tablet 500 mg PO BID RF: 0 glipizide 5 mg tablet 2.5 mg PO BIDM RF: 0 aspirin 81 mg Tablet,Delayed Release (Dr/Ec) 81 mg PO DAILY RF: 0 simvastatin 40 mg Tablet 40 mg PO HS RF: 0 lisinopril 5 mg Tablet 5 mg PO DAILY RF: 0 metoprolol succinate 25 mg Tablet Extended Release 24 Hr 25 mg PO DAILY RF: 0 Referrals Referrals: Danny Ibarra MD [Primary Care Provider] - Discharge Problem: Anemia Qualifiers: Anemia type: unspecified type Qualified Code(s): D64.9 - Anemia, unspecified The scribe's documentation has been prepared under my direction and personally reviewed by me in its entirety. I confirm that the note above accurately reflects all work, treatment, procedures, and medical decision making performed by me.
[2018-11-16] MEDS ORDERED: PHARMACIST DISCHARGE MED REC CONSULT PRN (00:37)
[2018-11-16] MEDS ORDERED: LORazepam 1.5 MG/3 ML VIAL IV PRN (00:37)
[2018-11-16] MEDS ORDERED: ACETAMINOPHEN 325 MG TAB PO PRN (00:37)
[2018-11-16] MEDS ORDERED: NITROGLYCERIN SL 0.4 MG/TAB TAB SL PRN (00:37)
[2018-11-16] MEDS ORDERED: ONDANSETRON INJ 2 MG/ML 2 ML VIAL IV PRN (00:37)
[2018-11-16] MEDS ORDERED: GLUCOSE 10 TABS/TUBE PO PRN (01:15)
[2018-11-16] MEDS ORDERED: CARBOHYDRATES FOR HYPOGLYCEMIA PO PRN (01:15)
[2018-11-16] MEDS ORDERED: GLUCOSE 40% GEL 15 GM TUBE PO PRN (01:15)
[2018-11-16] MEDS ORDERED: DEXTROSE 50% 50 ML SYRINGE IV PRN (01:15)
[2018-11-16] MEDS ORDERED: GLUCAGON FOR INJ 1 MG VIAL SQ PRN (01:15)
[2018-11-16] MEDS: SODIUM CHLORIDE 0.9% 1000ML 1,000 ML IV SCH ×2 (01:30→13:49)
[2018-11-16 05:49] LABS: Basophils # (auto) 0.01 K/uL (0-0.2); Basophils % (auto) 0.1 %; Eosinophils # (auto) 0.07 K/uL (0-0.5); Eosinophils % (auto) 0.9 %; Hematocrit (blood only) 27.5 % (37-47); Hemoglobin 8.8 g/dL (12.0-16.0); Immature Granulocytes # (auto) 0.02 K/uL (0.00-0.02); Immature Granulocytes % (auto) 0.3 %; Lymphocytes # (auto) 2.34 K/uL (1.2-3.4); Lymphocytes % (auto) 31.5 %; Mean Corpuscular Volume 80.2 fL (80-100); Mean Platelet Volume 9.2 fL (7.4-10.4); Monocytes # (auto) 0.62 K/uL (0.11-0.59); Monocytes % (auto) 8.3 %; Neutrophils # (auto) 4.38 K/uL (1.4-6.5); Neutrophils % (auto) 58.9 %; Platelet Count 274 K/uL (130-400); RDW Coefficient of Variation 15.1 % (11.5-14.5); RDW Standard Deviation 43.7 fL (36.4-46.3); Red Blood Count 3.43 M/uL (4.2-5.4); White Blood Count 7.44 K/uL (4.8-10.8)
[2018-11-16] MEDS: INSULIN ASPART 100 UNITS/ML 3 ML PEN SC SCH ×4 (05:58→20:46)
[2018-11-16 06:06] LABS: BUN Creatinine Ratio 38.3 (10-20); Calcium 8.9 mg/dl (8.5-10.1); Est GFR (Non-African American) 62.1; Potassium 3.9 mmol/L (3.5-5.1)
[2018-11-16 06:20] LABS: RBC Morphology Unremarkable
[2018-11-16] MEDS ORDERED: PERFLUTREN LIPID MICROSPHERE (DEFINITY) IV ONE (07:14)
[2018-11-16 08:27] LABS: Estimated Average Glucose 200 mg/dl; Hemoglobin A1C 8.6 % (4.5-5.6)
[2018-11-16] MEDS ORDERED: LEVOTHYROXINE SODIUM 12.5 MCG in SYRINGE 0 ML IV SCH (09:00)
--- NOTE | 2018-11-16 09:31 | Procedure Note ---
EEG Procedure Note Date of Service November 16, 2018 Start / End Times Start Time: 08:13 End Time: 08:[address] Franki Majano History A 78 year old woman admitted for possible seizure. EEG performed for evaluation of epileptiform activity. Home Medication List Home Medications Medication Instructions Recorded Confirmed Type cholecalciferol (vitamin D3) 1,000 unit PO DAILY 04/27/18 11/15/18 History levothyroxine 25 mcg PO DAILY 04/27/18 11/15/18 History mesalamine [Lialda] 4 tab PO DAILY 04/27/18 11/15/18 History multivitamin 1 tab PO DAILY 04/27/18 11/15/18 History omeprazole 20 mg PO DAILY 04/27/18 11/15/18 History aspirin 81 mg PO DAILY 08/11/18 11/15/18 History glipizide 2.5 mg PO BIDM 08/11/18 11/15/18 History lisinopril 5 mg PO DAILY 08/11/18 11/15/18 History metoprolol succinate 25 mg PO DAILY 08/11/18 11/15/18 History simvastatin 40 mg PO HS 08/11/18 11/15/18 History levetiracetam 500 mg PO BID 11/15/18 11/15/18 History Inpatient Medication List Sodium Chloride (Nss 1000ml) 1,000 mls @ 100 mls/hr IV .Q10H JENNIFER Stop: 12/16/18 00:36 Last Admin: 11/16/18 01:30 Dose: 100 mls/hr Documented by: [id number] Insulin Aspart (Novolog Flexpen) 0 units SC ACHS JENNIFER Stop: 12/16/18 07:29 Last Admin: 11/16/18 05:58 Dose: Not Given Documented by: [id number] Cosigned by: [id number] Discontinued Medications Sodium Chloride (Nss 1000ml) 1,000 mls @ 125 mls/hr IV .Q8H JENNIFER Stop: 11/16/18 04:29 Last Infusion: 11/16/18 00:40 Dose: 0 mls/hr Documented by: [id number] Admin: 11/15/18 20:31 Dose: 125 mls/hr Documented by: [id number] Levetiracetam 1,000 mg/ (Dextrose) 110 mls @ 440 mls/hr IV NOW STA Stop: 11/15/18 20:50 Last Infusion: 11/15/18 21:01 Dose: 0 mls/hr Documented by: [id number] Admin: 11/15/18 20:46 Dose: 440 mls/hr Documented by: [id number] Lorazepam (Ativan) 1 mg in 2 mls @ 2 mls/min IV NOW STA Stop: 11/15/18 20:41 Last Admin: 11/15/18 20:41 Dose: Not Given Documented by: [id number] Ioversol (Optiray 320 125ml) 119 ml IV ONCE PRN PRN Reason: Interaction Checking Stop: 11/19/18 21:37 Last Admin: 11/15/18 21:38 Dose: 119 ml Documented by: [id number] Lorazepam (Ativan) Confirm Administered Dose 2 mg .ROUTE .STK-MED ONE Stop: 11/15/18 20:33 Last Admin: 11/15/18 20:36 Dose: 1 mg Documented by: [id number] Perflutren Lipid Microsphere (Definity) 2 ml IV ONCE ONE Stop: 11/16/18 07:15 Last Admin: 11/16/18 07:15 Dose: 2 ml Documented by: [id number] Description This is a 21 electrode EEG with a single channel dedicated to limited EKG. The electrodes were placed in accordance with the International 10-20 system. At the onset of the EEG, the patient is drowsy. The background activity consist of 9 Hz, impersistent, posteriorly dominant, moderate amplitude, symmetric and rhythmic activity that is reactive to eye opening. Anteriorly, it consist of a mixture of low voltage indeterminate activity and 15-25 Hz, persistent, low amplitude, symmetric and rhythmic activity. Stepwise intermittent photic stimulation does not induce any abnormalities. Drowsiness is characterized by low amplitude mixed frequency activity, roving eye movements, and decreased eye blinking and muscle artifact. IMPRESSION: This is a normal awake and drowsy EEG. There is no evidence of epileptiform activity. A normal EEG does not rule out epilepsy. If the clinical picture warrants, a sleep deprived awake and sleep record may be helpful.
[2018-11-16] MEDS ORDERED: GADOBUTROL 65ML VIAL IV PRN (09:44)
--- NOTE | 2018-11-16 10:25 | Magnetic Resonance Report ---
MR brain wo/w con CLINICAL HISTORY: cva mental status change COMPARISON STUDY: CT brain 11/15/2018 MRI brain 08/12/2018 TECHNIQUE: Utilizing a 1.5 Gabrielle magnet and dedicated coil, multiplanar, multiecho imaging of the br ain was performed pre and postcontrast administration. IV administration of 5.5 mL of Gadavist contr ast was uneventful. FINDINGS: No evidence for an acute ischemic process. Findings of mild chronic small vessel change braulio arya of the left occipital lobe. This is unchanged. Signal characteristics otherwise indicate a component of mild age-related cerebral atrophy. Ventricul ar system is midline. No evidence hydrocephalus. The sella and parasellar regions are unremarkable. IMPRESSION: 1. No acute process. 2. Mild age-related and chronic small vessel change unaltered from the prior study. 3. No abnormal postcontrast enhancement. The above report was generated using voice recognition software. It may contain grammatical, syntax or spelling errors. Electronically signed by: Daniel Higgins M.D. 11/16/2018 10:24 AM
[2018-11-16] MEDS ORDERED: PANTOprazole 40 MG in SYRINGE 0 ML IV SCH (11:00)
[2018-11-16] MEDS: ASPIRIN 81 MG ECTAB PO SCH (11:36)
[2018-11-16] MEDS: METOPROLOL SUCC 25MG EXT REL TAB PO SCH (11:36)
[2018-11-16] MEDS: MULTIVITAMIN TAB PO SCH (11:36)
[2018-11-16] MEDS: CHOLECALCIFEROL 1,000 UNITS TAB PO SCH (11:37)
[2018-11-16] MEDS: CLOPIDOGREL BISULFATE 75 MG TAB PO SCH (11:37)
--- NOTE | 2018-11-16 13:40 | Neurology Consultation ---
Date of Consultation November 16, 2018 Assessment & Plan (1) Seizure: 1. no driving for 6 months from last seizure date, no heights, no bathing or swimming alone 2. Keppra 500 mg home dose will need to increase 750 mg BID 3. MRI with no lesions or abnormalities 4. CTA head and neck- stenosis ICA 2 cm 5. TSH- elevated T4 normal range 6. no UTI 7. Keppra and CK level neurology in 4-6 weeks after discharge Freda Chowdhury PAC schedule Supervising Physician Co-Signing Physician Notes I have seen and discussed above patient with Dr Allen Connor. Patient was seen and examined. I agree with Freda Chowdhury PA-C as noted below. Admitted for suspected symptomatic seizure. History of seizure in the past on Keppra 500 mg BID. Non focal neuro examine. MRI brain reviewed and Negative for intracranial mass or acute stroke. Ha1c 8.6. Discussed with patient. Recommend optimization of diabetic medications. EEG reviewed. Normal EEG. No epileptiform activity. Please check a CK level. Recommend increasing Keppra to 750 mg BID. Follow with Freda Chowdhury PA-C as outpatient. Please call with any further questions. History of Present Illness Reason for Consultation: CVA? vs Seizure Attending Physician: Franki Majano MD History of Present Illness Fatoumata is a 78 year old female with PMH DM, HLD, HTN, lung CA right sided lower and middle lobe resection was on Keytruda but developed colitis and stopped it 12/2017. She was treated with steroids and Remicade infusions and on Lialda and follows with Dr Contreras for her colitis. After her episode in june she had a ZIO which showed some tachycardia and VT and saw cards 07/2018. They ordered a stress test and BB. She had an additional episode of confusion and went to her neighbors and called her sister. In the ED she was confused and seemed to have expressive aphasia. Stroke alert was called but no tPa was given. CTA head and neck was ordered. She had a brief episode of tonic- clonic seizures in the ED and was given 1 gm of keppra and IV ativan. She states she has been taking her medications as ordered no skipped doses. She is upset because she know she will loose her license again for 6 months. denies CP, SOB, abdominal pain, one sided weakness, numbness tingling, N, V, loss bowel or bladder, biting of tongue. Allergies Allergy/AdvReac Type Severity Reaction Status Date / Time No Known Allergies Allergy Unverified 11/15/18 20:52 Home Medications Home Medications Medication Instructions Recorded Confirmed Type cholecalciferol (vitamin D3) 1,000 unit PO DAILY 04/27/18 11/15/18 History levothyroxine 25 mcg PO DAILY 04/27/18 11/15/18 History mesalamine [Lialda] 4 tab PO DAILY 04/27/18 11/15/18 History multivitamin 1 tab PO DAILY 04/27/18 11/15/18 History omeprazole 20 mg PO DAILY 04/27/18 11/15/18 History aspirin 81 mg PO DAILY 08/11/18 11/15/18 History glipizide 2.5 mg PO BIDM 08/11/18 11/15/18 History lisinopril 5 mg PO DAILY 08/11/18 11/15/18 History metoprolol succinate 25 mg PO DAILY 08/11/18 11/15/18 History simvastatin 40 mg PO HS 08/11/18 11/15/18 History levetiracetam 500 mg PO BID 11/15/18 11/15/18 History Patient History Medical History Seizure Diabetes mellitus, type 2 Hypothyroidism Depression Hyponatremia (Chronic) GI bleed Arthritis DM II (diabetes mellitus, type II), controlled High cholesterol Hypertension Hypothyroidism Non-small cell cancer of right lung S/p lower and middle lung lobe resection in Jun 2017 Ulcerative colitis Weight loss, unintentional Surgical History History of lobectomy of lung Family History Other Heart disease Social History Communication Ability: Effective Beliefs That Will Affect Care: Congregation marital status: / Current Living Situation: Alone Feels Safe at Home: Yes Smoking Status: Former smoker Hx Alcohol Use: No Hx Substance Use: No Physical Exam Vital Signs (Past 24 Hours): Last Vital Signs Temp 36.8 C 11/16/18 11:15 Pulse 67 11/16/18 11:15 Resp 22 11/16/18 11:15 BP 162/60 H 11/16/18 11:15 Pulse Ox 93 11/16/18 11:15 Physical Exam: Constitutional: appearance nourished, healthy and normal Ears, Nose, Mouth and Throat: mucous membranes moist, no injection and skin normal, eyes normal Cardiovascular: normal S-1 and S-2 and regular rate and rhythm Respiratory: clear to auscultation (CTA) decreased breath sounds Musculoskeletal: no peripheral edema and good distal pulses Skin: no stigmata of neurocutaneous disease noted and normal and intact Eyes: extraocular muscles intact (EOMI) and pupils equal, round and reactive to light (PERRL) NEUROLOGIC EXAMINATION: Mental status: Alert and interactive Oriented to full date and location Oriented to person Speech fluent with no evidence of aphasia Cranial Nerves smile eye brow raise symmetric Reflexes: Deep tendon reflexes were symmetrical and graded 2/5. Sensory: light and cool touch Coordination: finger to nose no bi pass Gait/Stance: Posture sitting up in bed Motor: Negative for pronator drift of out stretched arms with eyes closed. Strength: biceps triceps hand bibliographic services specialist 5/5 bilaterally hip flex plantar flex ext 5/5 bilaterally Results & Data Laboratory Results Abnormal lab results 11/15/18 11/15/18 11/15/18 Range/Units 20:10 20:21 20:21 RBC 3.72 L (4.2-5.4) M/uL Hgb 9.6 L (12.0-16.0) g/dL Hct 30.0 L (37-47) % RDW Coeff of Timothy 15.0 H (11.5-14.5) % [place] # (Auto) (0.11-0.59) K/uL Chloride (98-107) mmol/L BUN 39 H (7-18) mg/dl BUN/Creatinine Ratio 33.2 H (10-20) Glucose 184 H (70-99) mg/dl POC Glucose 197 H (70-99) Hemoglobin A1c (4.5-5.6) % Total Bilirubin 0.1 L (0.2-1) mg/dl Alkaline Phosphatase 118 H (45-117) U/L Globulin 4.1 H (2.5-4.0) gm/dl Triglycerides (0-150) mg/dl TSH 5.990 H (0.300-4.500) uIu/ml Ur Specific [place] (1.000-1.030) Urine Protein (Negative) 11/15/18 11/16/18 11/16/18 Range/Units 21:50 05:25 05:25 RBC 3.43 L (4.2-5.4) M/uL Hgb 8.8 L (12.0-16.0) g/dL Hct 27.5 L (37-47) % RDW Coeff of Timothy 15.1 H (11.5-14.5) % [place] # (Auto) 0.62 H (0.11-0.59) K/uL Chloride 108 H (98-107) mmol/L BUN 34 H (7-18) mg/dl BUN/Creatinine Ratio 38.3 H (10-20) Glucose 132 H (70-99) mg/dl POC Glucose (70-99) Hemoglobin A1c (4.5-5.6) % Total Bilirubin (0.2-1) mg/dl Alkaline Phosphatase (45-117) U/L Globulin (2.5-4.0) gm/dl Triglycerides 157 H (0-150) mg/dl TSH (0.300-4.500) uIu/ml Ur Specific [place] 1.031 H (1.000-1.030) Urine Protein 2+ H (Negative) 11/16/18 11/16/18 11/16/18 Range/Units 05:25 05:56 11:20 RBC (4.2-5.4) M/uL Hgb (12.0-16.0) g/dL Hct (37-47) % RDW Coeff of Timothy (11.5-14.5) % [place] # (Auto) (0.11-0.59) K/uL Chloride (98-107) mmol/L BUN (7-18) mg/dl BUN/Creatinine Ratio (10-20) Glucose (70-99) mg/dl POC Glucose 147 H 149 H (70-99) Hemoglobin A1c 8.6 H (4.5-5.6) % Total Bilirubin (0.2-1) mg/dl Alkaline Phosphatase (45-117) U/L Globulin (2.5-4.0) gm/dl Triglycerides (0-150) mg/dl TSH (0.300-4.500) uIu/ml Ur Specific [place] (1.000-1.030) Urine Protein (Negative) Diagnostic Findings CTA head-. No evidence of aneurysm, focal vessel occlusion, or significant stenosis of the intracranial arteries. CTA neck- Less than 70% stenosis of the origin and proximal 2 cm of the left internal carotid artery. Less than 25% stenosis of the origin and proximal right internal carotid artery along a more limited length. Patent vertebral arteries. Severe emphysema. MRI brain with and without contrast-No acute process. Mild age-related and chronic small vessel change unaltered from the prior study. No abnormal postcontrast enhancement.
--- NOTE | 2018-11-16 14:07 | Hospitalist Progress Note ---
Date of Service November 16, 2018 Assessment & Plan (1) Seizure: Breakthrough Seizure Brain MRI: no acute process CT Angio head and neck: no acute process -- loaded with 1 g IV Keppra now on IV Keppra 500mg q12h -- may need to incease po Keppra Nephro consuled (2) Acute CVA (cerebrovascular accident): CVA ruled out Brain MRI: no acute process Echo: pending (3) History of lobectomy of lung: LUNG CANCER FOLLOWS WITH HEME/ONCO CURRENTLY NOT ON CHEMO (4) Diabetes mellitus, type 2: HOLDING HOME PO MEDS PLACED ON ISS CURRENTLY WILL MONITOR (5) Hypothyroidism: resume Levothyroxine (6) Depression: CURRENTLY NOT ON MEDS WILL MONITOR (7) Hyperlipidemia: ON ZOCOR FOLLOW LIPID PROFILE (8) GERD (gastroesophageal reflux disease): PPI (9) HTN (hypertension): ON TOPROL AND LISINOPRIL HOLDING LISINOPRIL- IF MRI NEGATIVE FOR CVA CAN RESTART LISINOPRIL TODAY - (10) Colitis: KEYTRUDA INDUCED CURRENTLY ON REMICADE INFUSIONS AND LIALDA AND DOING FINE Disposition PT/OT ordered lives at home, independent Subjective ff up for breakthrough seizure seen resting in bed, in good spirits oriented x 3 states she feels fine overall denies headache, focal neuro deficits no chest pain, dyspnea, dizziness denies other symptoms Physical Exam Vital Signs (Past 24 Hours): Last Vital Signs Temp 36.8 C 11/16/18 11:15 Pulse 67 11/16/18 11:15 Resp 22 11/16/18 11:15 BP 162/60 H 11/16/18 11:15 Pulse Ox 93 11/16/18 11:15 Physical Exam: General- oriented x 3, not in distress, speaks in sentences with no effort or accessory muscle use Eyes- anicteric Neck- no JVD Lungs- clear breath sounds bilaterally, no rales/wheezes Heart- normal rate, regular rhythm; no murmurs Abdomen- normal bowel sounds, nondistended, soft, nontender Extremities- no pretibial edema, no calf tenderness Neuro- alert, oriented x 3; no gross focal neurologic deficits Skin- warm & dry Results & Data Laboratory Results Laboratory Results - last 24 hr 11/15/18 11/15/18 11/15/18 20:10 20:21 20:21 WBC RBC Hgb Hct MCV MCH MCHC RDW Std Deviation RDW Coeff of Timothy Plt Count MPV Immature Gran % (Auto) Neut % (Auto) Lymph % (Auto) [place] % (Auto) Eos % (Auto) Baso % (Auto) Immature Gran # (Auto) Neut # (Auto) Lymph # (Auto) [place] # (Auto) Eos # (Auto) Baso # (Auto) RBC Morphology PT 9.8 INR 1.0 Sodium Potassium Chloride Carbon Dioxide Anion Gap BUN Creatinine Est Cr Clr Drug Dosing Est GFR ( Amer) Est GFR (Non-Af Amer) BUN/Creatinine Ratio Glucose POC Glucose 197 H Estimat Average Glucose Hemoglobin A1c Calcium Magnesium Total Bilirubin AST ALT Alkaline Phosphatase Troponin I Total Protein Albumin Globulin Albumin/Globulin Ratio Triglycerides Cholesterol LDL Cholesterol, Calc VLDL Cholesterol, Calc HDL Cholesterol Cholesterol/HDL Ratio TSH Free T4 Urine Color Urine Appearance Urine pH Ur Specific [place] Urine Protein Urine Glucose (UA) Urine Ketones Urine Blood Urine Nitrite Urine Bilirubin Urine Urobilinogen Ur Leukocyte Esterase Urine WBC (Auto) Urine RBC (Auto) U Hyaline Cast (Auto) U Epithel Cells (Auto) Urine Bacteria (Auto) Blood Type O Positive Antibody Screen NEGATIVE 11/15/18 11/15/18 11/15/18 20:21 20:21 21:50 WBC 5.28 RBC 3.72 L Hgb 9.6 L Hct 30.0 L MCV 80.6 MCH 25.8 MCHC 32.0 RDW Std Deviation 43.9 RDW Coeff of Timothy 15.0 H Plt Count 323 MPV 9.3 Immature Gran % (Auto) 0.0 Neut % (Auto) 45.3 Lymph % (Auto) 42.0 [place] % (Auto) 9.3 Eos % (Auto) 3.0 Baso % (Auto) 0.4 Immature Gran # (Auto) 0.00 Neut # (Auto) 2.39 Lymph # (Auto) 2.22 [place] # (Auto) 0.49 Eos # (Auto) 0.16 Baso # (Auto) 0.02 RBC Morphology PT INR Sodium 139 Potassium 3.9 Chloride 104 Carbon Dioxide 28 Anion Gap 7.0 BUN 39 H Creatinine 1.18 Est Cr Clr Drug Dosing Not Reportable Est GFR ( Amer) 51.9 Est GFR (Non-Af Amer) 44.8 BUN/Creatinine Ratio 33.2 H Glucose 184 H POC Glucose Estimat Average Glucose Hemoglobin A1c Calcium 9.2 Magnesium 1.9 Total Bilirubin 0.1 L AST 32 ALT 27 Alkaline Phosphatase 118 H Troponin I < 0.015 Total Protein 7.6 Albumin 3.5 Globulin 4.1 H Albumin/Globulin Ratio 0.9 Triglycerides Cholesterol LDL Cholesterol, Calc VLDL Cholesterol, Calc HDL Cholesterol Cholesterol/HDL Ratio TSH 5.990 H Free T4 1.01 Urine Color Yellow Urine Appearance Clear Urine pH 7.0 Ur Specific [place] 1.031 H Urine Protein 2+ H Urine Glucose (UA) Negative Urine Ketones Negative Urine Blood Negative Urine Nitrite Negative Urine Bilirubin Negative Urine Urobilinogen Negative Ur Leukocyte Esterase Negative Urine WBC (Auto) 0 Urine RBC (Auto) 0-4 U Hyaline Cast (Auto) 0 U Epithel Cells (Auto) 0-5 Urine Bacteria (Auto) Negative Blood Type Antibody Screen 11/16/18 11/16/18 11/16/18 05:25 05:25 05:25 WBC 7.44 RBC 3.43 L Hgb 8.8 L Hct 27.5 L MCV 80.2 MCH 25.7 MCHC 32.0 RDW Std Deviation 43.7 RDW Coeff of Timothy 15.1 H Plt Count 274 MPV 9.2 Immature Gran % (Auto) 0.3 Neut % (Auto) 58.9 Lymph % (Auto) 31.5 [place] % (Auto) 8.3 Eos % (Auto) 0.9 Baso % (Auto) 0.1 Immature Gran # (Auto) 0.02 Neut # (Auto) 4.38 Lymph # (Auto) 2.34 [place] # (Auto) 0.62 H Eos # (Auto) 0.07 Baso # (Auto) 0.01 RBC Morphology Unremarkable PT INR Sodium 141 Potassium 3.9 Chloride 108 H Carbon Dioxide 28 Anion Gap 5.0 BUN 34 H Creatinine 0.90 Est Cr Clr Drug Dosing 44.0 Est GFR ( Amer) 72.0 Est GFR (Non-Af Amer) 62.1 BUN/Creatinine Ratio 38.3 H Glucose 132 H POC Glucose Estimat Average Glucose 200 Hemoglobin A1c 8.6 H Calcium 8.9 Magnesium Total Bilirubin AST ALT Alkaline Phosphatase Troponin I Total Protein Albumin Globulin Albumin/Globulin Ratio Triglycerides 157 H Cholesterol 159 LDL Cholesterol, Calc 72 VLDL Cholesterol, Calc 31 HDL Cholesterol 56 Cholesterol/HDL Ratio 3 TSH Free T4 Urine Color Urine Appearance Urine pH Ur Specific [place] Urine Protein Urine Glucose (UA) Urine Ketones Urine Blood Urine Nitrite Urine Bilirubin Urine Urobilinogen Ur Leukocyte Esterase Urine WBC (Auto) Urine RBC (Auto) U Hyaline Cast (Auto) U Epithel Cells (Auto) Urine Bacteria (Auto) Blood Type Antibody Screen 11/16/18 11/16/18 05:56 11:20 WBC RBC Hgb Hct MCV MCH MCHC RDW Std Deviation RDW Coeff of Timothy Plt Count MPV Immature Gran % (Auto) Neut % (Auto) Lymph % (Auto) [place] % (Auto) Eos % (Auto) Baso % (Auto) Immature Gran # (Auto) Neut # (Auto) Lymph # (Auto) [place] # (Auto) Eos # (Auto) Baso # (Auto) RBC Morphology PT INR Sodium Potassium Chloride Carbon Dioxide Anion Gap BUN Creatinine Est Cr Clr Drug Dosing Est GFR ( Amer) Est GFR (Non-Af Amer) BUN/Creatinine Ratio Glucose POC Glucose 147 H 149 H Estimat Average Glucose Hemoglobin A1c Calcium Magnesium Total Bilirubin AST ALT Alkaline Phosphatase Troponin I Total Protein Albumin Globulin Albumin/Globulin Ratio Triglycerides Cholesterol LDL Cholesterol, Calc VLDL Cholesterol, Calc HDL Cholesterol Cholesterol/HDL Ratio TSH Free T4 Urine Color Urine Appearance Urine pH Ur Specific [place] Urine Protein Urine Glucose (UA) Urine Ketones Urine Blood Urine Nitrite Urine Bilirubin Urine Urobilinogen Ur Leukocyte Esterase Urine WBC (Auto) Urine RBC (Auto) U Hyaline Cast (Auto) U Epithel Cells (Auto) Urine Bacteria (Auto) Blood Type Antibody Screen
[2018-11-16] MEDS: LISINOPRIL 5 MG TAB PO SCH (17:47)
[2018-11-16] MEDS: levETIRAcetam 750 MG in DEXTROSE 5% 100 ML IV SCH (20:46)
[2018-11-16] MEDS: SIMVASTATIN 40 MG TAB PO SCH (20:47)
[2018-11-16] MEDS ORDERED: Nursing to Pharmacy Communication ONE (20:55)
[2018-11-17] MEDS: SODIUM CHLORIDE 0.9% 1000ML 1,000 ML IV SCH (01:25)
[2018-11-17] MEDS: LEVOTHYROXINE SODIUM 25 MCG TABLET PO SCH (06:25)
[2018-11-17 07:05] LABS: Basophils # (auto) 0.03 K/uL (0-0.2); Basophils % (auto) 0.5 %; Eosinophils # (auto) 0.27 K/uL (0-0.5); Eosinophils % (auto) 4.2 %; Hematocrit (blood only) 28.5 % (37-47); Immature Granulocytes # (auto) 0.01 K/uL (0.00-0.02); Immature Granulocytes % (auto) 0.2 %; Lymphocytes # (auto) 2.31 K/uL (1.2-3.4); Lymphocytes % (auto) 36.2 %; Mean Corpuscular Hgb Conc 31.6 g/dL (32-36); Mean Corpuscular Volume 79.8 fL (80-100); Mean Platelet Volume 9.1 fL (7.4-10.4); Monocytes # (auto) 0.61 K/uL (0.11-0.59); Monocytes % (auto) 9.5 %; Neutrophils # (auto) 3.16 K/uL (1.4-6.5); Neutrophils % (auto) 49.4 %; Platelet Count 273 K/uL (130-400); RDW Coefficient of Variation 15.2 % (11.5-14.5); RDW Standard Deviation 44.3 fL (36.4-46.3); Red Blood Count 3.57 M/uL (4.2-5.4); White Blood Count 6.39 K/uL (4.8-10.8)
[2018-11-17 07:25] LABS: BUN Creatinine Ratio 25.9 (10-20); Calcium 9.1 mg/dl (8.5-10.1); Creatinine Clr Calc Pharmacy 41.2 ml/min; Est GFR (African American) 66.6; Est GFR (Non-African American) 57.4; Potassium 3.9 mmol/L (3.5-5.1)
[2018-11-17] MEDS: INSULIN ASPART 100 UNITS/ML 3 ML PEN SC SCH ×4 (08:31→21:57)
[2018-11-17] MEDS: ASPIRIN 81 MG ECTAB PO SCH (08:33)
[2018-11-17] MEDS: CHOLECALCIFEROL 1,000 UNITS TAB PO SCH (08:33)
[2018-11-17] MEDS: CLOPIDOGREL BISULFATE 75 MG TAB PO SCH (08:33)
[2018-11-17] MEDS: LISINOPRIL 5 MG TAB PO SCH (08:33)
[2018-11-17] MEDS: METOPROLOL SUCC 25MG EXT REL TAB PO SCH (08:34)
[2018-11-17] MEDS: MULTIVITAMIN TAB PO SCH (08:34)
[2018-11-17] MEDS: levETIRAcetam 750 MG in DEXTROSE 5% 100 ML IV SCH ×2 (08:37→21:09)
[2018-11-17] MEDS ORDERED: PANTOprazole 40 MG TAB PO SCH (09:00)
--- NOTE | 2018-11-17 16:23 | CT Scan Report ---
CT SCAN OF THE BRAIN WITHOUT IV CONTRAST CLINICAL HISTORY: Dysarthria. COMPARISON STUDY: CT of the brain dated 11/15/2018. TECHNIQUE: Unenhanced axial CT scan of the brain is performed from the vertex to the skull base. A do se lowering technique was utilized adhering to the principles of ALARA. CT DOSE: 887.21 mGycm FINDINGS: Brain parenchyma: There are age-related involutional changes noting mild subcortical and periventric ular microangiopathic change. There is no hemorrhage, mass effect, or evidence of acute territorial i schemia by CT criteria. [place]klin-white matter differentiation is preserved. No extra-axial fluid collecti on is seen. Ventricles, sulci, cisterns: Prominent secondary to involutional change. Intracranial vasculature: There is atherosclerotic calcification of the cavernous carotid and vertebr al arteries. Calvarium: Unremarkable. Sinuses and mastoids: Trace mucosal thickening is seen in the maxillary antra. The remaining paranasa l sinuses are clear. Trace mastoid effusions are noted. Orbits: The bony orbits are grossly intact. There are bilateral ocular lens implants. IMPRESSION: There is no hemorrhage, mass effect, or evidence of acute territorial ischemia by CT chancet yadiel. Electronically signed by: Tylor Galvan M.D. 11/17/2018 4:21 PM
--- NOTE | 2018-11-17 17:54 | Hospitalist Progress Note ---
Date of Service November 17, 2018 Assessment & Plan (1) Seizure: Breakthrough Seizure Brain MRI: no acute process CT Angio head and neck: no acute process -- loaded with 1 g IV Keppra now on IV Keppra 750 mg every 12 --Reports mild dysarthria today which she noticed since yesterday Discussed with neurology service Recommend repeat CAT scan of the head CT head no acute process Continue to monitor (2) Acute CVA (cerebrovascular accident): CVA ruled out Brain MRI: no acute process Echo: No intra-atrial shunt Repeat CT head improvement 2019: No acute CVA (3) History of lobectomy of lung: LUNG CANCER FOLLOWS WITH HEME/ONCO CURRENTLY NOT ON CHEMO (4) Diabetes mellitus, type 2: HOLDING HOME PO MEDS PLACED ON ISS CURRENTLY WILL MONITOR (5) Hypothyroidism: resume Levothyroxine TSH high, free T4 normal Repeat thyroid function tests and outpatient (6) Depression: CURRENTLY NOT ON MEDS Mood stable (7) Hyperlipidemia: ON ZOCOR FOLLOW LIPID PROFILE (8) GERD (gastroesophageal reflux disease): PPI (9) HTN (hypertension): ON TOPROL AND LISINOPRIL (10) Colitis: KEYTRUDA INDUCED CURRENTLY ON REMICADE INFUSIONS AND LIALDA AND DOING FINE Disposition PT/OT ordered lives at home, independent Subjective ff up for breakthrough seizure Seen sitting up in bed, comfortable Reports mild slurring of her words, which started yesterday, not resting but also not improving Seems to correct when she speaks slowly as per patient Denies any other neurologic deficits Denies confusion, headache, dizziness No other symptoms Physical Exam Vital Signs (Past 24 Hours): Last Vital Signs Temp 36.6 C 11/17/18 15:39 Pulse 59 L 11/17/18 15:39 Resp 18 11/17/18 15:39 BP 149/64 H 11/17/18 15:39 Pulse Ox 92 11/17/18 15:39 Physical Exam: General- oriented x 3, not in distress, speaks in sentences with no effort or accessory muscle use Eyes- anicteric Neck- no JVD Lungs- clear breath sounds bilaterally, no rales/wheezes Heart- normal rate, regular rhythm; no murmurs Abdomen- normal bowel sounds, nondistended, soft, nontender Extremities- no pretibial edema, no calf tenderness Neuro- alert, oriented x 3; mild intermittent dysarthria, no other gross focal neurologic deficits Skin- warm & dry Results & Data Laboratory Results Laboratory Results - last 24 hr 11/16/18 11/17/18 11/17/18 20:14 06:48 06:48 WBC 6.39 RBC 3.57 L Hgb 9.0 L Hct 28.5 L MCV 79.8 L MCH 25.2 MCHC 31.6 L RDW Std Deviation 44.3 RDW Coeff of Timothy 15.2 H Plt Count 273 MPV 9.1 Immature Gran % (Auto) 0.2 Neut % (Auto) 49.4 Lymph % (Auto) 36.2 [place] % (Auto) 9.5 Eos % (Auto) 4.2 Baso % (Auto) 0.5 Immature Gran # (Auto) 0.01 Neut # (Auto) 3.16 Lymph # (Auto) 2.31 [place] # (Auto) 0.61 H Eos # (Auto) 0.27 Baso # (Auto) 0.03 Sodium 138 Potassium 3.9 Chloride 105 Carbon Dioxide 28 Anion Gap 5.0 BUN 25 H Creatinine 0.96 Est Cr Clr Drug Dosing 41.2 Est GFR ( Amer) 66.6 Est GFR (Non-Af Amer) 57.4 BUN/Creatinine Ratio 25.9 H Glucose 131 H POC Glucose 205 H Calcium 9.1 Total Creatine Kinase 57 11/17/18 11/17/18 11/17/18 07:24 11:46 16:26 WBC RBC Hgb Hct MCV MCH MCHC RDW Std Deviation RDW Coeff of Timothy Plt Count MPV Immature Gran % (Auto) Neut % (Auto) Lymph % (Auto) [place] % (Auto) Eos % (Auto) Baso % (Auto) Immature Gran # (Auto) Neut # (Auto) Lymph # (Auto) [place] # (Auto) Eos # (Auto) Baso # (Auto) Sodium Potassium Chloride Carbon Dioxide Anion Gap BUN Creatinine Est Cr Clr Drug Dosing Est GFR ( Amer) Est GFR (Non-Af Amer) BUN/Creatinine Ratio Glucose POC Glucose 136 H 125 H 108 H Calcium Total Creatine Kinase
[2018-11-17] MEDS: SIMVASTATIN 40 MG TAB PO SCH (21:10)
[2018-11-18 05:42] LABS: Basophils # (auto) 0.02 K/uL (0-0.2); Basophils % (auto) 0.4 %; Eosinophils % (auto) 5.4 %; Hematocrit (blood only) 29.8 % (37-47); Hemoglobin 9.2 g/dL (12.0-16.0); Immature Granulocytes # (auto) 0.01 K/uL (0.00-0.02); Immature Granulocytes % (auto) 0.2 %; Lymphocytes # (auto) 2.26 K/uL (1.2-3.4); Lymphocytes % (auto) 40.4 %; Mean Corpuscular Hgb Conc 30.9 g/dL (32-36); Mean Corpuscular Volume 80.5 fL (80-100); Mean Platelet Volume 9.3 fL (7.4-10.4); Monocytes # (auto) 0.55 K/uL (0.11-0.59); Monocytes % (auto) 9.8 %; Neutrophils # (auto) 2.45 K/uL (1.4-6.5); Neutrophils % (auto) 43.8 %; Platelet Count 258 K/uL (130-400); RDW Coefficient of Variation 15.1 % (11.5-14.5); RDW Standard Deviation 44.1 fL (36.4-46.3); White Blood Count 5.59 K/uL (4.8-10.8)
[2018-11-18 05:58] LABS: BUN Creatinine Ratio 27.2 (10-20); Calcium 9.5 mg/dl (8.5-10.1); Est GFR (African American) 70.1; Est GFR (Non-African American) 60.5
[2018-11-18] MEDS: LEVOTHYROXINE SODIUM 25 MCG TABLET PO SCH (06:14)
[2018-11-18] MEDS: ASPIRIN 81 MG ECTAB PO SCH (08:58)
[2018-11-18] MEDS: LISINOPRIL 5 MG TAB PO SCH (08:59)
[2018-11-18] MEDS: CLOPIDOGREL BISULFATE 75 MG TAB PO SCH (08:59)
[2018-11-18] MEDS: MULTIVITAMIN TAB PO SCH (09:02)
[2018-11-18] MEDS: METOPROLOL SUCC 25MG EXT REL TAB PO SCH (09:02)
[2018-11-18] MEDS: CHOLECALCIFEROL 1,000 UNITS TAB PO SCH (09:03)
[2018-11-18] MEDS: INSULIN ASPART 100 UNITS/ML 3 ML PEN SC SCH ×2 (09:06→12:26)
[2018-11-18] MEDS: levETIRAcetam 750 MG in DEXTROSE 5% 100 ML IV SCH (09:10)
[2018-11-18] MEDS ORDERED: PANTOprazole 40 MG TAB PO SCH (12:00)
--- NOTE | 2018-11-18 15:51 | Hospitalist Progress Note ---
Date of Service November 18, 2018 delayed entry date of service as noted above Assessment & Plan (1) Seizure: Breakthrough Seizure Brain MRI: no acute process CT Angio head and neck: no acute process -- loaded with 1 g IV Keppra then given IV Keppra 750 mg every 12 -- Neurology consulted recommend to increase Keppra to 750mg BID from 500mg BID --Reported mild dysarthria while admitted repeat CT head no acute process dysarthria resolved -- ff up with Neurology Clinic in 4-6 weeks per Neuro, no driving for 6 months from last seizure date, no heights, no bathing or swimming alone (2) Acute CVA (cerebrovascular accident): CVA ruled out Brain MRI: no acute process Echo: No intra-atrial shunt Repeat CT head: No acute CVA (3) History of lobectomy of lung: LUNG CANCER FOLLOWS WITH HEME/ONCO CURRENTLY NOT ON CHEMO (4) Diabetes mellitus, type 2: a1c 8.6, increased from 6.7 last August increase Glipizide ff up with PCP as outpatient (5) Hypothyroidism: resume Levothyroxine TSH high, free T4 normal Repeat thyroid function tests as an outpatient (6) Depression: CURRENTLY NOT ON MEDS Mood stable (7) Hyperlipidemia: ON ZOCOR (8) GERD (gastroesophageal reflux disease): PPI (9) HTN (hypertension): ON TOPROL AND LISINOPRIL (10) Colitis: KEYTRUDA INDUCED CURRENTLY ON REMICADE INFUSIONS AND LIALDA AND DOING FINE Disposition dc home ff up with PCP as noted in DC instructions ff up with Neurology 4-6 weeks Subjective ff up for breakthrough seizure seen resting in bed, comfortable states speech is back to normal denies confusion, headache, other neuro symptoms states she is ready and would like to be discharged today Physical Exam Vital Signs (Past 24 Hours): Last Vital Signs Temp 36.6 C 11/18/18 14:57 Pulse 59 L 11/18/18 14:57 Resp 18 11/18/18 14:57 BP 108/59 L 11/18/18 14:57 Pulse Ox 94 11/18/18 14:57 Physical Exam: General- oriented x 3, not in distress, speaks in sentences with no effort or accessory muscle use Eyes- anicteric Neck- no JVD Lungs- clear BS BL no crackles/wheezing Heart- normal rate, regular rhythm; no murmurs Abdomen- normal bowel sounds, nondistended, soft, nontender Extremities- no pretibial edema, no calf tenderness Neuro- alert, oriented x 3; no gross focal neurologic deficits Skin- warm & dry Results & Data Laboratory Results all noted
--- NOTE | 2018-11-18 16:31 | Discharge Summary ---
Date of Service November 18, 2018 Admission HPI Per Admitting Provider HISTORY OF PRESENT ILLNESS: This is a 78-year-old female with past medical history significant for lung cancer status post right-sided lower and middle lobe resection and was given Keytruda , but she developed colitis and last dose of Keytruda was given on 12/2017. For colitis, she was initially treated with steroids but as soon as her steroids were tapered she had several episodes of diarrhea and colitis was back, so she is currently on Remicade infusions and on Lialda and she is doing okay with that and follows with Dr. Contreras, and she has history of diabetes, hyperlipidemia, hypertension and in June 2018 she had an episode of confusion and her family doctor ordered Ziopatch monitor echocardiogram, and MRI was performed. 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 On Aug 12 2018 Patient was brought to [facility] ER for confusion. Went to neighbor confused) and in ER she had an seizure episode and was intubated. Was started on keppra. MRI and EEG were unremarkable. She did fine and was discharged. Today again she went to her neighbor around 7pm and was confused. But told her she did not want to go through same thing.Neighbor called the sisters and was brought to Er. In The Er she was confused and seemed to have expressive aphasia. Last well know was in the afternoon, she went to mormonism with sister and then had lunch. Stroke alert was called.Ct head no acute findings. [facility] advised for CTA head and neck and to call them if any acute findings. But nothing acute showed on those imaging studies. But patient had an brief episode of tonic-clonic seizures in Er when she was given 1gm of iv keppra and iv ativan. Currently somewhat drowsy but arousable and mumbles words.Not obeying commands. Sisters in room and as per them she is taking her medications regularly. ats fine. Ambulates fine and was doing ok. No complaints until this episode. Currently she is not getting any treatment for her lung cancer.Hemodynamics stable in ER.Enedelia lives alone. Admission Exam Per Admitting Provider PHYSICAL EXAMINATION: GENERAL: The patient is status post intubation. HEENT: No pallor, no icterus. Pupils equal, round, and react to light. VITAL SIGNS: Temperature 36.4, pulse 94, respiratory rate 16, blood pressure 181/75, oxygen 99% on 60% FiO2 on mechanical vent. NECK: No neck masses, no carotid bruits. CARDIOVASCULAR: S1, S2 heard. Tachycardia. No murmurs. RESPIRATORY: Normal AP diameter. No accessory muscle use. No wheezing, no crackles. ABDOMEN: Soft, bowel sounds present. No distention. CENTRAL NERVOUS SYSTEM: Status post intubation and sedated. EXTREMITIES: No edema, no erythema seen. Principal Diagnosis Breakthrough Seizure Discharge Exam Vital Signs (Past 24 Hours): Last Vital Signs Temp 36.6 C 11/18/18 14:57 Pulse 59 L 11/18/18 14:57 Resp 18 11/18/18 14:57 BP 108/59 L 11/18/18 14:57 Pulse Ox 94 11/18/18 14:57 Physical Exam: General- oriented x 3, not in distress, speaks in sentences with no effort or accessory muscle use Eyes- anicteric Neck- no JVD Lungs- clear BS BL no crackles/wheezing Heart- normal rate, regular rhythm; no murmurs Abdomen- normal bowel sounds, nondistended, soft, nontender Extremities- no pretibial edema, no calf tenderness Neuro- alert, oriented x 3; no gross focal neurologic deficits Skin- warm & dry Discharge Data Allergies Allergy/AdvReac Type Severity Reaction Status Date / Time No Known Allergies Allergy Unverified 11/15/18 20:52 Consultations 11/15/18 21:58 ED Decision to Admit Stat 11/16/18 00:37 Consult Case Management - Discharge Planning Routine 11/16/18 08:00 Consult Neurology Routine Ordered Studies 11/15/18 20:19 CT head/brain wo con Stat 11/15/18 20:57 CT angio head w con Stat 11/15/18 21:25 CT angio neck with con Stat 11/16/18 00:37 MR brain wo/w con Urgent 11/17/18 15:32 CT head/brain wo con Stat Hospital Course (1) Seizure: Breakthrough Seizure Brain MRI: no acute process CT Angio head and neck: no acute process -- loaded with 1 g IV Keppra then given IV Keppra 750 mg every 12 no recurrence while admitted -- Neurology consulted- Dr. Moffett recommend to increase Keppra to 750mg BID from 500mg BID --Reported mild dysarthria while admitted repeat CT head no acute process dysarthria resolved -- ff up with Neurology Clinic in 4-6 weeks per Neuro, no driving for 6 months from last seizure date, no heights, no bathing or swimming alone (2) Acute CVA (cerebrovascular accident): CVA ruled out Brain MRI: no acute process Echo: No intra-atrial shunt Repeat CT head: No acute CVA (3) History of lobectomy of lung: LUNG CANCER FOLLOWS WITH HEME/ONCO CURRENTLY NOT ON CHEMO (4) Diabetes mellitus, type 2: a1c 8.6, increased from 6.7 last August increase Glipizide ff up with PCP as outpatient (5) Hypothyroidism: resume Levothyroxine TSH high, free T4 normal Repeat thyroid function tests as an outpatient (6) Depression: CURRENTLY NOT ON MEDS Mood stable (7) Hyperlipidemia: ON ZOCOR (8) GERD (gastroesophageal reflux disease): PPI (9) HTN (hypertension): ON TOPROL AND LISINOPRIL (10) Colitis: KEYTRUDA INDUCED CURRENTLY ON REMICADE INFUSIONS AND LIALDA AND DOING FINE Disposition dc home ff up with PCP as noted in DC instructions ff up with Neurology 4-6 weeks Total Time Total Time Spent Total Time Spent (In Minutes): 40 minutes Discharge Plan Discharge Items Patient Disposition: Home - Self-Care Reason For Visit: CVA? SEIZURE Discharge Diagnosis: BREAKTHROUGH SEIZURE Discharge Goals: Diagnostic testing and Therapeutic intervention Activity: As commented below Activity Comment: INCREASE ACTIVITY GRADUALLY TOLERATED, NO HEAVY EXERTION Lifting: Wait until after follow-up appointment Bathing Comment: NO BATHING Exercise/Sports: Wait until after follow-up appointment Driving/Machine Use Comment: NO DRIVING UNTIL CLEARED BY NEUROLOGIST Non-emergency contact: Primary Care Provider Call non-emergency contact if: you have any medication questions Follow-up/Referrals: Danny Ibarra MD [Primary Care Provider] - 11/23/18 10:45 am Diet: Carb Consistent or DM2 and Heart Healthy Addtl Provider Instructions: Call 9-1-1 immediately if with seizure recurrence. No driving for 6 months from last seizure date, no heights, no bathing or swimming alone. Follow up with Neurology Clinic in 4-6 weeks. The clinic will be calling you for the appointment date. Call Primary Care Physician immediately if with persistent Blood Sugar Readings below 100. Prescriptions: New levetiracetam [Keppra] 750 mg tablet 750 mg PO BID 30 Days Qty: 60 RF: 1 glipizide 5 mg tablet 5 mg PO UD 30 Days Qty: 45 RF: 2 Continued omeprazole 20 mg Capsule,Delayed Release(Dr/Ec) 20 mg PO DAILY RF: 0 mesalamine [Lialda] 1.2 gram Tablet,Delayed Release (Dr/Ec) 4 tab PO DAILY RF: 0 levothyroxine 25 mcg Capsule 25 mcg PO DAILY RF: 0 multivitamin Tablet 1 tab PO DAILY RF: 0 cholecalciferol (vitamin D3) 1,000 unit Capsule 1,000 unit PO DAILY RF: 0 aspirin 81 mg Tablet,Delayed Release (Dr/Ec) 81 mg PO DAILY RF: 0 simvastatin 40 mg Tablet 40 mg PO HS RF: 0 lisinopril 5 mg Tablet 5 mg PO DAILY RF: 0 metoprolol succinate 25 mg Tablet Extended Release 24 Hr 25 mg PO DAILY RF: 0 Discontinued levetiracetam 500 mg tablet 500 mg PO BID RF: 0 glipizide 5 mg tablet 2.5 mg PO BIDM RF: 0 Stand-Alone Forms: [facility] Discharge Orders: Discharge Order (Routine); Ordered 11/18/18 Ordered By: Franki Majano Admission Data Admit Date/Time: 11/15/18 23:15 Attending Provider: Franki Majano Admit Provider: Nadir Angeles Primary Care Provider: Danny Ibarra Other Providers: Allen Connor Service: Telemetry Other Interventions: Discharge Summary Assessment (RN) Last Done: 11/18/18 16:59 DC Date/Time DO NOT enter until pt leaves facility: 11/18/18 17:21
== END 2018-11-18 17:21 | disposition home or self-care (01) | DRG 101 ==
LOC: ED 20:06 → 2S 23:15 → SUATTDRO 23:15 → 2S 23:55
DX: R47.1 Dysarthria and anarthria; R56.9 Unspecified convulsions; E11.9 Type 2 diabetes mellitus without complications; Z79.899 Other long term (current) drug therapy; K21.9 Gastro-esophageal reflux disease without esophagitis; R47.01 Aphasia; K52.1 Toxic gastroenteritis and colitis; D64.9 Anemia, unspecified; T45.1X5A Adverse effect of antineoplastic and immunosuppressive drugs, initial encounter; Z79.84 Long term (current) use of oral hypoglycemic drugs; I10 Essential (primary) hypertension; Z90.2 Acquired absence of lung [part of]; Z79.82 Long term (current) use of aspirin; Z87.891 Personal history of nicotine dependence; E03.9 Hypothyroidism, unspecified; E78.5 Hyperlipidemia, unspecified; F32.9 Major depressive disorder, single episode, unspecified

== ENCOUNTER 2020-05-16 05:16 | Observation (INO) ==
--- NOTE | 2020-04-20 15:00 | PAT Medication Instructions ---
Medication Instructions Date of Service April 20, 2020 Home Medications Medication Instructions Recorded 3-in-1 Commode #1 ea 02/04/20 Wheeled Walker #1 ea 02/04/20 cholecalciferol (vitamin D3) 1,000 unit PO QAM levothyroxine 25 mcg PO QAM multivitamin 1 tab PO QAM omeprazole 20 mg PO QAM aspirin 81 mg PO QAM metoprolol succinate 25 mg PO QAM simvastatin 40 mg PO HS levetiracetam 500 mg tablet 750 mg PO BID lisinopril 10 mg tablet 30 mg PO QAM metronidazole 1 % topical gel 1 appln TOP HS denosumab 60 mg/mL subcutaneous syringe 60 mg SUBCUT .COMPLEX glipizide 5 mg tablet 5 mg PO BID infliximab-dyyb 100 mg intravenous solution See Rx Instructions IV .COMPLEX loperamide 2 mg capsule 2 mg PO Q6H PRN ASK your prescriber and surgeon denosumab 60 mg/mL subcutaneous syringe 60 mg SUBCUT .COMPLEX infliximab-dyyb 100 mg intravenous solution See Rx Instructions IV .COMPLEX STOP taking 24 hours before surgery metronidazole 1 % topical gel 1 appln TOP HS DO NOT take the morning of surgery cholecalciferol (vitamin D3) 1,000 unit PO QAM multivitamin 1 tab PO QAM lisinopril 10 mg tablet 30 mg PO QAM glipizide 5 mg tablet 5 mg PO BID loperamide 2 mg capsule 2 mg PO Q6H PRN Take morning of surgery With a small sip of water, OTHERWISE NOTHING TO EAT OR DRINK AFTER MIDNIGHT: levothyroxine 25 mcg PO QAM omeprazole 20 mg PO QAM metoprolol succinate 25 mg PO QAM levetiracetam 500 mg tablet 750 mg PO BID Take evening before surgery simvastatin 40 mg PO HS levetiracetam 500 mg tablet 750 mg PO BID glipizide 5 mg tablet 5 mg PO BID loperamide 2 mg capsule 2 mg PO Q6H PRN (if needed) Other Notes If you have any questions please call us at [phone] or [phone] or [phone] or [phone]
--- NOTE | 2020-04-24 10:07 | Anesthesiology Consultation ---
Date of Service April 24, 2020 Assessment & Plan (1) Encounter for pre-operative examination: - Chronic iron deficiency anemia: Follows closely with [facility] hematology and has been receiving iron infusions. Hx ulcerative colitis. Significant anemia with H/H 7.8/25.0 on preop labs. Surgeon's office made aware. Will forward labs to hematology. Awaiting optimization response/perioperative recommendations from hematology ([facility]). - Per assessment on 04/24: Travel screen negative. No known COVID-19 positive contacts or current COVID-19 related symptoms. Surgeon arranging preop COVID testing. Awaiting results. - Right VATS middle and lower lobectomy: 07/11/17: Grade 2 view, MAC#3, BANG - Cardiology office visit: 12/09/18: " Beta-nikhil therapy added during recent office visit due to evidence of 2 short salvos of nonsustained ventricular tachycardia and moderate PVCs.. Consider stress testing in the future with any a exertional dyspnea, chest discomfort, or decline in functional capacity. Continue low-dose aspirin and statin therapy for goal LDL less than 70mg/dL due to history of occipital CVA. All questions answered patient's satisfaction.. Thank you for allowing me to participate in the care of your patient. I will see her back on an as-needed basis." Per patient at PAT visit 04/24/20, patient feels well with no acute cardiopulmonary complaints. - Neurology office visit: 01/05/20: "MRI did show an old left occipital lobe infarct. The ZIO had some SVT and VT, TTE revealed some LV wall thickness and normal EF. She had an EEG in our office there was no seizure focus noted. She had another episode prior to coming to the hospital which the neighbor thought was a seizure and then there was a witnessed seizure in the ED and was intubated. Her last seizure was 11/16/2018 so she was unable to drive until May 2019 provided she is seizure free until then.She was seen by cardiology with no further treatment planned and is now on O2 at night due to her breathing issues. She has not had any recurrent events since the hospitalization and now is driving.. Return in 6 months or sooner if needed- if continues to be stable with go to 1 year visits.. Continue Keppra 750 mg q 12 hours." - Pulmonary office visit: 8/26/20: "Postoperative changes of prior right middle and lower lobectomy. No evidence of recurrent or metastatic disease.. No adenopathy.. Unchanged small right pleural effusion with chronic right lung base pleural thickening.. Moderate to severe emphysema with unchanged patchy bilateral groundglass and reticulonodular opacities suggestive of a chronic infectious or inflammatory pneumonitis.. 6 mm groundglass nodule of the inferior segment lingula. In retrospect, this nodule may have slightly increased in size dating back to the initial CT chest from 06/10/2017 where it measured approximately 5 mm.. Unchanged 8 mm nodular opacity of the right lung apex.. At this time her breathing is stable. She offered no complaints at this time. Denies any increased shortness of breath. Denies any increased cough or congestion. Denies any increased wheezing. No significant mucus production. No increased dyspnea on exertion. Denies chest heaviness or tightness. Denies pleuritic chest pain. She is using her inhaler/nebulizer regularly as directed. She is not having any difficulty with these medications. There are no complaints of chest pain or chest pressure. There is no complaints of angina or palpitations. There is no chest pain on exertion. There is no jaw pain or neck pain with exertion. There is no shoulder pain or arm pain with exertion. She denies any increased difficulties with swelling in the upper or lower extremities.. We did review her CT scan imaging at this time. At this point will repeat CT scan imaging in 6 months." - Check BSG AM DOS Chart Review Chart Review: Patient seen in Pre Admission Testing Teaching & Discussion Pre-Anesthesia Teaching/Discussion Notes: Instructed NPO after midnight before surgery,except medications with 15 cc of water. Medication instructions provided according to the PAT guidelines. History Surgery Operation Date: 05/16/20 07:00 Proposed Procedures p Right Total Knee Arthroplasty - Sandeep Blakely MD Height/Weight Height: 5 ft 2 in Weight: 59.1 kg Allergies Allergy/AdvReac Type Severity Reaction Status Date / Time pembrolizumab [From Keytruda] Allergy Unknown Diarrhea Verified 04/14/20 10:19 Medications Home Medications Medication Instructions Recorded Confirmed Last Taken cholecalciferol (vitamin D3) 1,000 unit PO QAM 04/27/18 04/14/20 11/15/18 levothyroxine 25 mcg PO QAM 04/27/18 04/14/20 11/15/18 multivitamin 1 tab PO QAM 04/27/18 04/14/20 11/15/18 omeprazole 20 mg PO QAM 04/27/18 04/14/20 11/15/18 aspirin 81 mg PO QAM 08/11/18 04/14/20 11/15/18 metoprolol succinate 25 mg PO QAM 08/11/18 04/14/20 11/15/18 simvastatin 40 mg PO HS 08/11/18 04/14/20 11/14/18 3-in-1 Commode #1 02/04/20 04/05/20 Unknown Oxygen Home #1 02/04/20 04/05/20 Unknown Wheeled Walker #1 02/04/20 04/05/20 Unknown blood-glucose meter #1 02/04/20 04/05/20 Unknown lancets 33 gauge #100 ea 02/04/20 04/05/20 Unknown levetiracetam 500 mg tablet 750 mg PO BID tab 02/04/20 04/14/20 Unknown lisinopril 10 mg tablet 30 mg PO QAM tab 02/04/20 04/14/20 Unknown metronidazole 1 % topical gel 1 appln TOP HS 02/04/20 04/14/20 Unknown denosumab 60 mg/mL subcutaneous 60 mg SUBCUT .COMPLEX ml 04/05/20 04/14/20 Unkn own syringe glipizide 5 mg tablet 5 mg PO BID 04/05/20 04/14/20 Unknown infliximab-dyyb 100 mg intravenous See Rx Instructions IV .COMPLEX 04/05/20 04/14/20 Unknown solution loperamide 2 mg capsule 2 mg PO Q6H PRN 04/05/20 04/14/20 Unknown Past Medical History Medical History Anemia chronic iron deficiency anemia in setting of ulcerative colitis (does receive routine iron infusions), under surveillance of [facility] hematology/GI. 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 Chowdhury; [facility]) Ulcerative colitis on Remicade, follows with [facility] GI Exercise / Class Metabolic Activity III < 4 Walking/Shop/Light housework Past Family History Family History Sister Family history of diabetes mellitus Other Heart disease Past Surgical History Surgical History History of breast biopsy History of colonoscopy History of lobectomy of lung Right VATS middle and lower lobectomy: 07/11/17: Grade 2 view, MAC#3, BANG History of repair of rotator cuff History of tonsillectomy History of tubal ligation Past Anesthesia History No Hx of Anesthesia Complications and No Family Hx of Anesthesia Complications History of PONV No Hx of PONV and No Hx of Motion Sickness Social History Smoking Status: Former smoker tobacco type: cigarettes Smoking cigarettes per day: 40 Do You Dip or Chew Tobacco: No Smoking End Date: QUIT 2016 Hx Alcohol Use: No Hx Substance Use: No substance use type: does not use Review of Systems Intermittent dyspnea (unchanged since right lobectomy). Patient denies chest pain, shortness of breath, wheezing, palpitations. Physical Exam Vital Signs VITALS BP 126/54 P 71 TEMP 97.8 SP02 95%RA RESP 16 PHYSICAL Full neck and c-spine range of motion. Full TMJ range of motion. TMD 3 finger breaths Mallampati Score 3 Dentition: several missing (molars), + caps Lungs: clear throughout to auscultation Cardiac: regular rate and rhythm, no murmurs noted Spine: normal Carotid arteries: negative bruit Extremities: no edema Testing Laboratory Results 04/24/20 10:29 PT 10.2 Seconds (9.0-12.0) 04/24/20 10:29 INR 1.0 (0.9-1.1) 04/24/20 10:29 APTT 23.9 Seconds (21.0-31.0) 04/24/20 10:29 Urine Color Yellow 04/24/20 Unknown Urine Appearance Cloudy (Clear) A 04/24/20 Unknown Urine pH 6.5 (4.5-7.5) 04/24/20 Unknown Ur Specific [place] 1.009 (1.000-1.030) 04/24/20 Unknown Urine Protein 1+ (Negative) H 04/24/20 Unknown Urine Glucose (UA) Negative (Negative) 04/24/20 Unknown Urine Ketones Negative (Negative) 04/24/20 Unknown Urine Nitrite Negative (Negative) 04/24/20 Unknown Ur Leukocyte Esterase 3+ (Negative) H 04/24/20 Unknown Urine WBC (Auto) >30 /hpf (0-5) H 04/24/20 Unknown Urine RBC (Auto) 5-10 /hpf (0-4) H 04/24/20 Unknown U Hyaline Cast (Auto) 0 /lpf (0-5) 04/24/20 Unknown U Epithel Cells (Auto) 0-5 /lpf (0-5) 04/24/20 Unknown Urine Bacteria (Auto) 1+ (Negative) H 04/24/20 Unknown Blood Type O Positive 04/24/20 10:29 Antibody Screen NEGATIVE 04/24/20 10:29 Elevated WBC (will forward report to PCP for their reference). Cyndi at surgeon's office made aware of + UA/anemia. 04/06/20 HGBA1C 8.7% (surgeon's office made aware) 04/20/20 SODIUM 137 POTASSIUM 5.0 CHLORIDE 106 CO2 23 BUN 34 CREATININE 1.1 GLUCOSE 224 Electrocardiogram Date: 04/24/20 Findings: + SB @ (63) Echocardiogram Date: 11/16/18 EF 50-55%. No RWMA. Mild cLVH. No significant valvular disease. Other Testing Chest CT: 03/14/20: Mild cardiomegaly with coronary artery calcifications. Calcified plaque of the thoracic aorta without aneurysm. Mild dilation of the main pulmonary artery is unchanged, possibly reflective of pulmonary artery hypertension. Postoperative changes of prior right middle and lower lobectomy. No evidence of recurrent or metastatic disease. No adenopathy. Unchanged small right pleural effusion with chronic right lung base pleural thickening.
[2020-04-24 12:09] LABS: Basophils # (auto) 0.03 K/uL (0-0.2); Basophils % (auto) 0.2 %; Eosinophils # (auto) 0.54 K/uL (0-0.5); Eosinophils % (auto) 4.4 %; Hemoglobin 7.8 g/dL (12.0-16.0); Immature Granulocytes # (auto) 0.03 K/uL (0.00-0.02); Immature Granulocytes % (auto) 0.2 %; Lymphocytes # (auto) 1.94 K/uL (1.2-3.4); Lymphocytes % (auto) 15.8 %; Mean Corpuscular Hemoglobin 26.2 pg (25-34); Mean Corpuscular Hgb Conc 31.2 g/dL (32-36); Mean Corpuscular Volume 83.9 fL (80-100); Mean Platelet Volume 9.2 fL (7.4-10.4); Monocytes # (auto) 0.91 K/uL (0.11-0.59); Monocytes % (auto) 7.4 %; Neutrophils # (auto) 8.84 K/uL (1.4-6.5); Platelet Count 432 K/uL (130-400); RDW Coefficient of Variation 14.3 % (11.5-14.5); RDW Standard Deviation 43.4 fL (36.4-46.3); Red Blood Count 2.98 M/uL (4.2-5.4); White Blood Count 12.29 K/uL (4.8-10.8)
[2020-04-24 12:13] LABS: Appearance Urine Cloudy (Clear); Bacteria Urine Automated 1+ (Negative); Bilirubin Urine Negative (Negative); Blood Urine Trace (Negative); Cast Urine Automated 0 /lpf (0-5); Color Urine Yellow; Epithelial Cell Urine Auto 0-5 /lpf (0-5); Glucose Urine UA Negative (Negative); Ketones Urine Negative (Negative); Leukocyte Esterase Urine 3+ (Negative); Nitrite Urine Negative (Negative); Protein Urine 1+ (Negative); Specific Gravity Urine 1.009 (1.000-1.030); Urobilinogen Urine Negative (Negative); WBC Urine Automated >30 /hpf (0-5); pH Urine 6.5 (4.5-7.5)
[2020-04-24 12:22] LABS: Partial Thromboplastin Ratio 0.9; Partial Thromboplastin Time 23.9 Seconds (21.0-31.0); Prothrombin Time 10.2 Seconds (9.0-12.0)
--- NOTE | 2020-04-24 12:27 | Electrocardiogram Report ---
Test Reason : Blood Pressure : / mmHG Vent. Rate : 063 BPM Atrial Rate : 063 BPM P-R Int : 192 ms QRS Dur : 094 ms QT Int : 430 ms P-R-T Axes : 067 083 054 degrees QTc Int : 440 ms Normal sinus rhythm Normal ECG When compared with ECG of 15-NOV-2018 20:18, Premature supraventricular complexes are no longer Present Confirmed by Andres Ruiz ([id number]) on 04/24/2020 12:26:40 PM Referred By: Sandeep Blakely Confirmed By:Andres Ruiz
[2020-04-24 12:39] LABS: RBC Morphology Unremarkable
--- NOTE | 2020-05-13 19:04 | History and Physical Report ---
DATE OF ADMISSION: 05/16/2020 CHIEF COMPLAINT: Bilateral knee pain and discomfort, right side greater than left. HISTORY OF PRESENT ILLNESS: The patient is a 80-year-old female from [place], who presents on referral from my partner, Dr. Le for surgical treatment of her knees. She has got a long history of bilateral knee pain and discomfort, right side a bit worse than the left. She has been through extensive conservative treatment over the years with injections, which do not seem to help much at all anymore. She has global pain. The more she walks, the more she hurts. She limps more as the day goes on. She would now like to have her knees fixed. Right knee is worse than the left. PAST MEDICAL HISTORY: 1. Hypertension. 2. History of lung cancer status post lobectomy. 3. Diabetes x30 years. 4. History of seizure disorder, last seizure in 11/2018, but now well controlled. PAST SURGICAL HISTORY: Include recent lung resection for lung cancer. ALLERGIES: PEMBROLIZUMAB. SOCIAL HISTORY: A 79-year-old female. She lives in [place]. Does not smoke. Does not drink. FAMILY HISTORY: Noncontributory. REVIEW OF SYSTEMS: Significant for recent lung cancer. She does require nighttime oxygen. Denies any current chest pain. No bleeding problems. She has a long-term diabetes which she says is well controlled. PHYSICAL EXAMINATION: GENERAL: Shows a pleasant thin elderly female. HEENT: Benign. NECK: Supple, no lymphadenopathy. LUNGS: Clear to auscultation. HEART: Regular rate and rhythm. ABDOMEN: Soft, nontender, nondistended. EXTREMITIES: Grossly neurovascularly intact except as follows. Examination of the right knee reveal patient ambulates independently. She has got varus alignment to her knee with a moderate sized knee effusion. She has got bony hypertrophy medially. Range of motion about 5-10 degrees short of full extension to 115 degrees of flexion. There is no instability. Examination of left knee reveals varus alignment. Small knee effusion. Range of motion 5-120. No instability. X-RAYS: X-rays of the right knee were reviewed. It shows advanced right knee DJD. She has complete loss of medial joint space. She has subchondral sclerosis. She has tibial femoral subluxation. Similar but less severe disease in the left side. ASSESSMENT: A 80-year-old white female with advanced bilateral knee degenerative joint disease. Right side is worse than left. She elected to proceed with right knee replacement. PLAN: We will take her to the operating room and do a right total knee replacement. The risks and benefits of this procedure were explained to the patient and include but not limited to DVT, PE, , infection, neurological injury, vascular injury, bleeding problem, pain, limited range of motion, stiffness, failure to relieve symptoms, incomplete relief of symptoms, need for further surgery in future, fracture, leg length inequality, nerve palsy, etc. The patient understands and desires to proceed. Informed consent was obtained. As long as discharge plans, she is planning to be discharged to home with [facility].
[~2020-05-16 05:16] MED LIST changes: -ETOMIDATE 2 MG/ML 20 ML VIAL IV ONE; -ROCURONIUM BROMIDE 10 MG/ML 5 ML VIAL IV ONE; +SODIUM CHLORIDE 0.9% 250 ML IV PRN
[2020-05-16] MEDS ORDERED: CEFAZOLIN 1000MG 1,000 MG/7.5 ML SYR IV SCH (06:00)
[2020-05-16] MEDS ORDERED: ACETAMINOPHEN 500 MG TAB PO SCH (06:00)
[2020-05-16] MEDS ORDERED: BUPIVACAINE LIPOSOME/PF 266 MG, BUPIVACAINE/EPINEPHRINE 50 ML, SODIUM CHLORIDE 0.9% 30 ... INFIL SCH (06:00)
[2020-05-16] MEDS ORDERED: LR 60ML/HR IV SCH (06:00)
[2020-05-16] MEDS ORDERED: TRANEXAMIC ACID 1,000 MG **IV Pre-op IV SCH (06:00)
[2020-05-16] MEDS ORDERED: LR 500ML BOLUS, THEN 15ML/HR IV SCH (06:00)
[2020-05-16] MEDS ORDERED: FAMOTIDINE 20 MG TAB PO SCH (06:00)
[2020-05-16 06:12] LABS: Basophils # (auto) 0.04 K/uL (0-0.2); Basophils % (auto) 0.6 %; Eosinophils # (auto) 0.75 K/uL (0-0.5); Eosinophils % (auto) 11.6 %; Hematocrit (blood only) 30.1 % (37-47); Hemoglobin 9.2 g/dL (12.0-16.0); Lymphocytes # (auto) 2.05 K/uL (1.2-3.4); Lymphocytes % (auto) 31.6 %; Mean Corpuscular Hemoglobin 27.3 pg (25-34); Mean Corpuscular Volume 89.3 fL (80-100); Mean Platelet Volume 9.3 fL (7.4-10.4); Monocytes # (auto) 0.44 K/uL (0.11-0.59); Monocytes % (auto) 6.8 %; Neutrophils % (auto) 49.4 %; Platelet Count 387 K/uL (130-400); RDW Coefficient of Variation 19.3 % (11.5-14.5); RDW Standard Deviation 62.6 fL (36.4-46.3); Red Blood Count 3.37 M/uL (4.2-5.4); White Blood Count 6.48 K/uL (4.8-10.8)
[2020-05-16 06:17] LABS: Mean Corpuscular Hgb Conc 30.6 g/dL (32-36)
[2020-05-16] MEDS ORDERED: BUPIVACAINE 0.5 % 5 MG/1 ML PF 10ML VIAL ONE (06:21)
[2020-05-16] MEDS ORDERED: BUPIVACAINE 0.25% 30 ML VIAL ONE (06:22)
[2020-05-16] MEDS ORDERED: LIDOCAINE HCL 2% 2 ML VIAL/AMP(20MG/ML) INFIL ONE (06:27)
[2020-05-16] MEDS ORDERED: PROPOFOL IV EMULSION 10 MG/ML 20 ML VIAL IV ONE (06:27)
[2020-05-16] MEDS ORDERED: MIDAZOLAM HCL 1 MG/ML 2ML VIAL ONE (06:28)
[2020-05-16] MEDS ORDERED: fentaNYL citrate 100 MCG/2 ML VIAL ONE (06:28)
[2020-05-16] MEDS ORDERED: BACITRACIN INJ 50,000 UNIT VIAL ONE (06:40)
[2020-05-16] MEDS ORDERED: BUPIVACAINE/EPINEPHRINE 0.25% 1:200,000 30 ML VIAL ONE (06:40)
[2020-05-16] MEDS ORDERED: SODIUM CHLORIDE 0.9% PF 50 ML VIAL ONE (06:40)
[2020-05-16] MEDS ORDERED: BUPIVACAINE LIPOSOME 1.3% 266 MG/20 ML VIAL ONE (06:40)
[2020-05-16 06:41] LABS: BUN Creatinine Ratio 31.4 (10-20); Calcium 8.1 mg/dl (8.5-10.1); Est GFR (African American) 61.7; Est GFR (Non-African American) 53.3; Potassium 4.2 mmol/L (3.5-5.1)
--- NOTE | 2020-05-16 06:49 | History & Physical Bridge Note ---
Date of Service May 16, 2020 History & Physical Bridge Note I have examined the patient, reviewed the History & Physical and in the interval since the performance of the History & Physical I have noted the following changes of clinical significance: no changes noted
[2020-05-16] MEDS ORDERED: ATROPINE SULFATE 0.1 MG/ML 10ML SYR IV PRN (07:19)
[2020-05-16] MEDS ORDERED: fentaNYL citrate 100 MCG/2 ML VIAL IV PRN (07:19)
[2020-05-16] MEDS ORDERED: ePHEDrine sulfate 50 MG/ML AMP IV PRN (07:19)
[2020-05-16] MEDS ORDERED: ONDANSETRON INJ 2 MG/ML 2 ML VIAL IV PRN ×2 (07:19→09:43)
[2020-05-16] MEDS ORDERED: PHENYLEPHRINE 100MCG/ML 5ML SYR ONE (07:47)
[2020-05-16 07:59] LABS: Appearance Urine Turbid (Clear); Bacteria Urine Automated Negative (Negative); Bilirubin Urine Negative (Negative); Blood Urine 2+ (Negative); Color Urine Yellow; Epithelial Cell Urine Auto >30 /lpf (0-5); Glucose Urine UA Negative (Negative); Ketones Urine Negative (Negative); Leukocyte Esterase Urine 3+ (Negative); Nitrite Urine Negative (Negative); Protein Urine 2+ (Negative); Specific Gravity Urine 1.015 (1.000-1.030); Urobilinogen Urine Negative (Negative); WBC Urine Automated >30 /hpf (0-5); pH Urine 5.5 (4.5-7.5)
[2020-05-16 08:12] LABS: Cast Urine Automated 0 /lpf (0-5)
--- NOTE | 2020-05-16 08:44 | Post Operative Brief Note ---
PG Immediate Post Op with CF Date of Surgery May 16, 2020 Pre & Post Diagnosis Operation Date: 05/16/20 07:00 Pre-Op Diagnosis: degenerative joint disease Right Knee Post-Op Diagnosis: degenerative joint disease Right Knee I identified the patient and participated in the time-out.: Yes Procedure Operation Date: 05/16/20 07:00 Actual Procedures p Right Total Knee Arthroplasty(Right) - Sandeep Blakely MD Surgeon Sandeep Blakely MD Paper Mill Supervisor Melissa, PAC Estimated Blood Loss 50 Findings Consistent with Post-Op Diagnosis Fluids 700 cc Specimens Specimen Description: Urinalysis/Culture 1. Urine Permanent: A.Right knee bone and tissue Drains Arguelles Catheter Anesthesia Type Spinal MAC Disposition Accompanied Patient To Recovery: No Disposition: Recovery Room
--- NOTE | 2020-05-16 09:04 | Operative Report ---
Post Operative Report Pre & Post Diagnosis Operation Date: 05/16/20 07:00 Pre-Op Diagnosis: degenerative joint disease Right Knee Post-Op Diagnosis: degenerative joint disease Right Knee I identified the patient and participated in the time-out.: Yes Procedure Operation Date: 05/16/20 07:00 Actual Procedures p Right Total Knee Arthroplasty(Right) - Sandeep Blakely MD Surgeon Sandeep Blakely MD Lemon Grower Melissa, PAC Estimated Blood Loss 50 Findings Consistent with Post-Op Diagnosis Operative findings revealed advanced right knee DJD with fairly extensive grade 4 [id number] disease in all 3 compartments most severe in the medial side. She had tibiofemoral subluxation with impingement and gouging of the tibial eminence into the lateral femoral condyle. Moderate-sized joint effusion. Fluids 700 cc. Specimens Right knee sent for pathology. Also a urine sent for urinalysis. Drains None. Anesthesia Type Spinal MAC Complications none Disposition Accompanied Patient To Recovery: No Disposition: Recovery Room Indications Patient is 80-year-old female is had a long history of bilateral knee pain discomfort describes it is gotten worse over time. She is been through extensive conservative treatment over the years which became less successful. X-rays have showed advanced bilateral knee DJD. The right side was by the more than the left. She elected proceed with right total knee arthroplasty. Description of Procedure Operative implants consist of: 1. Biomet Vanguard size 62.5 right posterior stabilized femoral component. 2. Biomet size 67 tibial tray. 3. 10 mm posterior stabilized polyethylene insert. 4. 31 x 8 all poly-patella. The patient was taken to the operating identified and placed on the operating table supine position protectors were properly padded. IV antibiotics arrived by anesthesia team. Spinal anesthetic and abductor canal block had been provided in the holding area. A Arguelles catheter was placed in sterile fashion. A right thigh turn was then placed. The right lower extremities and prepped and draped in usual sterile fashion. The right leg was elevated exsanguinated with use of an Esmarch and turns placed at 3 mmHg. An anterior approach to the right knee was then performed through a longitudinal incision centered over the patella. Sharp dissection was carried out through subcutaneous tissues down to the extensor mechanism. A medial parapatellar arthrotomy incision was made. Some subperiosteal dissection was carried out medially. The fat pad was resected from each patella tendon. Lateral patellofemoral ligament was released. The patella was subluxated laterally and the knee was flexed. The osteophytes were taken off the distal femur. The ACL and PCL were then released in the distal femur and the tibia subluxated anteriorly. The external tibial alignment jig was then placed in the interface the tibia and adjusted 14 mm medially. Proximal tibial cut was made to remove about 1 to 2 mm of bone from the most efficient aspect the medial tibial plateau. Some osteophytes were taken off medial and posterior medially. The tibia sized to a size 67. Attention drawn to the femur. The distal femur was entered with a sharp drop with intramedullary canal was suction. A right 5 degree valgus cutting guide was placed. Distal femoral cutting block was pinned in place but distal femoral cut was made to take an additional 3 mm of bone off distal femur. The femur was then sized to a size 62.5. We did downsize this almost an entire size. The AP cutting block was pinned parallel to the epicondylar axis which was 3 degrees of external rotation. The anterior cut, anterior chamfer, posterior cut, posterior chamfer cuts were made. Box cutting guide was placed and adjusted slightly lateral. The box cut was made. The knee was flexed. The remnants of the medial lateral menisci were excised. The osteophytes were taken off the posterior aspect of the femur. A trial femoral component was placed for the tibial tray was pinned in maximum external rotation and the drill and stem punch were used to create defect in proximal tip for the tibial tray. Knee was then trialed and the 10 mm insert fit most appropriately. Attention drawn the patella. The patella was cleaned of all soft tissues. Patella thickness measured 21 mm in thickness it was cut down to 13. It was sized to a size 31 patella. Locals were drilled for 31 patella. The lateral osteophyte is moved. Patella button was placed. Knee was taken through range of motion and the patella tracked nicely with a no thumbs test. Attention drawn to place the permanent components. All trial components were removed. Bone plug was placed in the distal femur limit blood loss. A double batch [place] G cement was mixed. A [employer] Vanguard size 62.5 right posterior stabilized femoral component, size 67 tibial tray, 10 mm posterior stabilized polyethylene insert, and a 31 x 8 all poly-patella were then cemented in place. Knee was brought out into full extension until cement hardened. Final cement check was then performed. The pericapsular tissues were injected with total 100 cc of combination of 20 cc of Exparel, 30 cc normal saline, 50 cc of quarter percent Marcaine with epinephrine. Patient did receive 1 g of tranexamic acid. The tourniquet was then let down for final turn time 54 minutes. Hemostasis was assured use electrocautery. The extensor mechanism closed with combination 1 PDS suture #1 Vicryl suture in [id number] fashion. Extensor mechanism checked found to be intact the subcutaneous tissue then closed with 2 Dexon suture in a buried interrupted fashion skin was closed skin alonzo. Leg was then cleaned dried and sterile dressed with Xeroform, 4 x 4's, sterile cast padding, Efrem bandage were applied. Patient then transferred to the recovery room in stable condition. Patient tolerated procedure well and there were no complications. Justin Torres, my physician lead recreation assistant, was present for the entire procedure. His assistance was essential and required for appropriate patient positioning, prepping and draping, surgical exposure, performing the technical details of the operation, placement the implants, closure of the wound, and placement of the sterile bandage. I attest to the content of the Intraoperative Record and any orders documented therein. Any exceptions are noted below.
--- NOTE | 2020-05-16 09:28 | XRay Report ---
XR knee RT 1 or 2V routine HISTORY: 80 years-old Female Surgical Post Op right knee total joint arthroplasty COMPARISON: Knee radiographs 02/04/2020 TECHNIQUE: 2 views of the right knee FINDINGS: Right knee total joint arthroplasty and patella resurfacing. Anterior midline skin alonzo are noted along with expected postoperative soft tissue swelling with deep tissue air. No acute fracture, malal ignment or unexpected retained foreign body. Surgical drainage catheter. Arterial calcifications. IMPRESSION: Right knee total joint arthroplasty with expected postoperative changes. ACT 112: Negative or not required by law. The above report was generated using voice recognition software. It may contain grammatical, syntax o r spelling errors. Electronically signed by: David Solis M.D. 05/16/2020 9:26 AM
[2020-05-16] MEDS ORDERED: LEVOTHYROXINE SODIUM 25 MCG TABLET PO SCH (09:43)
[2020-05-16] MEDS ORDERED: TRAMADOL HCL 50 MG TABLET PO PRN (09:43)
[2020-05-16] MEDS ORDERED: CARBOHYDRATES FOR HYPOGLYCEMIA PO PRN (09:43)
[2020-05-16] MEDS ORDERED: bisacodyL 10 MG SUPP PR PRN (09:43)
[2020-05-16] MEDS ORDERED: GLUCOSE 10 TABS/TUBE PO PRN (09:43)
[2020-05-16] MEDS ORDERED: LOPERAMIDE HCL 2 MG CAP PO PRN (09:43)
[2020-05-16] MEDS ORDERED: GLUCAGON FOR INJ 1 MG VIAL SQ PRN (09:43)
[2020-05-16] MEDS ORDERED: HYDROmorphone INJ 0.5 MG/0.5 ML SYR IV PRN (09:43)
[2020-05-16] MEDS ORDERED: NALOXONE HCL 0.4 MG/1 ML VIAL/CARP IV PRN (09:43)
[2020-05-16] MEDS ORDERED: NON-FORMULARY MEDICATION (Denosumab [Prolia] 60 MG) SQ SCH (09:43)
[2020-05-16] MEDS ORDERED: ALUMINUM/MAGNESIUM SUSP 30 ML UDC PO PRN (09:43)
[2020-05-16] MEDS ORDERED: MAGNESIUM HYDROXIDE SUSP 30 ML UDC PO PRN (09:43)
[2020-05-16] MEDS ORDERED: DEXTROSE 50% 50 ML SYRINGE IV PRN (09:43)
[2020-05-16] MEDS ORDERED: METOCLOPRAMIDE HCL INJ 5 MG/ML 2 ML VIAL IV PRN (09:43)
[2020-05-16] MEDS ORDERED: MULTIVITAMIN TAB PO SCH (09:43)
[2020-05-16] MEDS ORDERED: GLUCOSE 40% GEL 15 GM TUBE PO PRN (09:43)
--- NOTE | 2020-05-16 09:52 | Anesthesiology Progress Note ---
Date of Service May 16, 2020 Anesthesia Post Procedure Vital Signs Vital Signs: Temp Pulse Pulse Resp BP BP Pulse Ox 05/16/20 09:35 36.3 C L 64 18 132/63 100 05/16/20 09:20 59 L 19 122/54 L 100 05/16/20 09:15 36.3 C L 66 20 119/52 L 99 05/16/20 09:05 64 20 124/43 L 100 05/16/20 08:55 60 15 127/47 L 100 05/16/20 08:47 36.0 C L 69 19 114/53 L 100 05/16/20 05:57 36.5 C 61 16 130/50 L 98 Pain Intensity Right Knee: Pain Intensity: 0 Transfer of Care Handoff Completed per policy Notes Mental Status: alert / awake / arousable and participated in evaluation Nausea / Vomiting: adequately controlled Pain: adequately controlled Airway Patency, RR, SpO2: stable & adequate BP & HR: stable & adequate Hydration State: stable & adequate Neuraxial Anesthesia: was administered and sensory block is resolving Anesthetic Complications: no major complications apparent and Pt Satisfied with anesthetic care
[2020-05-16] MEDS ORDERED: PHARMACY GLYCEMIC MGMT CONSULT PRN (09:54)
[2020-05-16] MEDS ORDERED: glipiZIDE 5 MG TAB PO SCH (10:30)
[2020-05-16] MEDS: levETIRAcetam 250 MG TAB PO SCH ×2 (10:46→20:46)
[2020-05-16] MEDS: PANTOprazole 40 MG TAB PO SCH ×2 (10:46→10:50)
[2020-05-16] MEDS: METOPROLOL SUCC 25MG EXT REL TAB PO SCH (10:47)
[2020-05-16] MEDS: INSULIN ASPART 100 UNITS/ML 3 ML PEN SC SCH ×4 (10:48→20:49)
[2020-05-16] MEDS: DOCUSATE SODIUM 100 MG CAP PO SCH ×2 (10:50→20:44)
[2020-05-16] MEDS: CHOLECALCIFEROL 1,000 UNITS 25 MCG TAB PO SCH (10:51)
[2020-05-16] MEDS: ASPIRIN 81 MG ECTAB PO SCH ×2 (10:51→20:44)
[2020-05-16] MEDS: lisinopriL 10 MG TAB PO SCH (10:51)
[2020-05-16] MEDS: MULTIVITAMIN TAB PO SCH (10:51)
--- NOTE | 2020-05-16 11:08 | Pharmacy Report ---
Glycemic Control Consultation - Date of Service May 16, 2020 - Scope Scope: Glycemic Pharmacist consulted for glycemic control and to write orders per [facility] inpatient glycemic control protocol. - Objective Weight: 56.8 kg Accuchecks BSG (last 24hrs): 05/16/20 05/16/20 05/16/20 05:41 05:43 08:49 Glucose 155 H POC Glucose 165 H 137 H Laboratory Data (last 24hrs): 05/16/20 05:43 Potassium 4.2 Carbon Dioxide 25 Anion Gap 4.0 Creatinine 1.01 Est Cr Clr Drug Dosing 38.0 - Recent Pertinent Medications Outpatient Anti-diabetic Regimen: * glipizide 5 mg bid * A1c = 8.6 % 2018 - ordered for tomorrow Risk Factors for Insulin Resistance: * Recent Surgery: POD 0 - Assessment & Plan Assessment & Plan: ASSESSMENT: * 80 year old, now s/p R knee arthroplasty, POD 0. Type 2 diabetic managed only on oral agent at home. Pharmacy consulted for glycemic management * No steroids preop/intraop received - plan to utilize stress of 2 novolog for management. Hold basal insulin for now PLAN FOR INPATIENT GLYCEMIC CONTROL: * Holding outpatient oral diabetes medications * Basal insulin * Lantus - hold * Bolus insulin * NovoLog per scale ACHS or Q6hrs while NPO * Goal Range: Low 120 mg/dL - High 160 mg/dL * Correction Factor: 40 mg/dL/unit * Nutritional / Prandial insulin per carb ratio of 1 unit per 15 grams CHO consumed * Please note that the plan above was derived based on current level of insulin resistance and hospital stress. These recommendations are appropriate for inpatient admission only. Plan of care upon discharge will need to be reassessed to avoid potential outpatient hypo/hyperglycemia. Thank you.
[2020-05-16] MEDS: KETOROLAC TROMETHAMINE 15 MG/ML VIAL IV SCH ×2 (12:41→17:48)
[2020-05-16] MEDS: ACETAMINOPHEN 500 MG TAB PO SCH ×2 (13:07→20:45)
[2020-05-16] MEDS: CEFAZOLIN 1000MG 1,000 MG/7.5 ML SYR IV SCH ×2 (13:07→20:43)
[2020-05-16] MEDS: SODIUM CHLORIDE 0.9% 1000ML 1,000 ML IV SCH ×3 (13:07→20:43)
[2020-05-16] MEDS ORDERED: TRANEXAMIC ACID / 0.7% NACL 1,000 MG/100 ML BAG IV SCH (15:00)
--- NOTE | 2020-05-16 16:09 | Progress Notes ---
DATE: 05/16/2020 SUBJECTIVE: 80-year-old white female postop from a right knee replacement. She is doing quite well. She says she was up to the bathroom already. Pain is controlled. No chest pain or shortness of breath. Not feeling dizzy or lightheaded. OBJECTIVE: VITAL SIGNS: Temperature 36.7. Vital signs stable. GENERAL: Shows a pleasant elderly female. She is lying in bed and currently looks quite comfortable. LUNGS: Clear to auscultation. HEART: Regular rate and rhythm. ABDOMEN: Soft, nontender, nondistended. EXTREMITIES: Grossly neurovascularly intact except as follows: Examination of the right leg reveals the leg to be well aligned. Dressing is clean, dry and intact. She can dorsiflex and plantarflex her foot appropriately. She is neurologically intact. X-RAYS: X-rays of the right knee from recovery room reviewed. It shows right cemented posterior stabilized total knee arthroplasty. Components look to be in good position. No signs of problems. ASSESSMENT: 80-year-old female postop from right knee replacement, doing well. Pain is controlled. She is neurologically intact. PLAN: 1. DVT prophylaxis including thigh-high TEDs, SCDs, and aspirin twice a day. 2. PT/OT. Weight bear as tolerated. Right total knee protocol. 3. Pain control, doing well with current pain regimen. 4. IV antibiotics x24 hours. 5. Disposition: She is hoping to be discharged to a rehab for a brief rehab stay. Social service is working on that.
[2020-05-16] MEDS: CIPROFLOXACIN 500 MG TAB PO SCH (17:48)
[2020-05-16] MEDS: FERROUS GLUCONATE 324 MG TAB PO SCH (17:49)
[2020-05-16] MEDS: ASCORBIC ACID 500 MG TAB PO SCH (17:49)
[2020-05-16] MEDS: SIMVASTATIN 40 MG TAB PO SCH (20:44)
[2020-05-16] MEDS: SENNA 8.6 MG TAB PO SCH (20:45)
[2020-05-17] MEDS: KETOROLAC TROMETHAMINE 15 MG/ML VIAL IV SCH ×3 (00:15→14:37)
[2020-05-17] MEDS: ACETAMINOPHEN 500 MG TAB PO SCH ×3 (05:42→21:14)
[2020-05-17] MEDS: LEVOTHYROXINE SODIUM 25 MCG TABLET PO SCH (05:43)
[2020-05-17 06:24] LABS: Hematocrit (blood only) 24.4 % (37-47); Hemoglobin 7.7 g/dL (12.0-16.0); Mean Corpuscular Hemoglobin 27.5 pg (25-34); Mean Corpuscular Hgb Conc 31.6 g/dL (32-36); Mean Corpuscular Volume 87.1 fL (80-100); Mean Platelet Volume 9.1 fL (7.4-10.4); Platelet Count 302 K/uL (130-400); RDW Coefficient of Variation 19.1 % (11.5-14.5); RDW Standard Deviation 60.5 fL (36.4-46.3); White Blood Count 7.25 K/uL (4.8-10.8)
[2020-05-17 06:37] LABS: Estimated Average Glucose 137 mg/dl; Hemoglobin A1C 6.4 % (4.5-5.6)
[2020-05-17 06:56] LABS: BUN Creatinine Ratio 22.7 (10-20); Calcium 7.1 mg/dl (8.5-10.1); Est GFR (African American) 42.7; Est GFR (Non-African American) 36.9; Potassium 4.6 mmol/L (3.5-5.1)
[2020-05-17] MEDS: lisinopriL 10 MG TAB PO SCH (08:59)
[2020-05-17] MEDS: METOPROLOL SUCC 25MG EXT REL TAB PO SCH (09:00)
[2020-05-17] MEDS: FERROUS GLUCONATE 324 MG TAB PO SCH ×2 (09:00→17:49)
[2020-05-17] MEDS: ASCORBIC ACID 500 MG TAB PO SCH ×2 (09:00→17:49)
[2020-05-17] MEDS: MULTIVITAMIN TAB PO SCH (09:00)
[2020-05-17] MEDS: PANTOprazole 40 MG TAB PO SCH (09:00)
[2020-05-17] MEDS: levETIRAcetam 250 MG TAB PO SCH ×2 (09:00→21:13)
[2020-05-17] MEDS: CIPROFLOXACIN 500 MG TAB PO SCH (09:00)
[2020-05-17] MEDS: CHOLECALCIFEROL 1,000 UNITS 25 MCG TAB PO SCH (09:00)
[2020-05-17] MEDS: ASPIRIN 81 MG ECTAB PO SCH ×2 (09:00→21:14)
[2020-05-17] MEDS: DOCUSATE SODIUM 100 MG CAP PO SCH ×2 (09:00→19:40)
[2020-05-17] MEDS: INSULIN ASPART 100 UNITS/ML 3 ML PEN SC SCH ×4 (09:01→21:13)
--- NOTE | 2020-05-17 13:26 | Progress Notes ---
DATE: 05/17/2020 SUBJECTIVE: A 80-year-old female postop day 1 from a right knee replacement. She is doing pretty well. Therapy went reasonably well. Pain is controlled. No chest pain or shortness of breath. Not feeling dizzy or lightheaded. OBJECTIVE: VITAL SIGNS: Temperature 36.7. Vital signs stable. GENERAL: Shows a pleasant elderly female. She is lying in bed, looks quite comfortable this afternoon. EXTREMITIES: Examination of the right leg reveals the leg to be well aligned. Dressing is clean, dry and intact. She is neurologically intact. LABORATORY DATA: Hemoglobin 7.7. Hematocrit 24.4. Electrolytes are pretty stable. Creatinine is a little bit elevated at 1.37. ASSESSMENT: A 80-year-old white female postoperative day 1 from right knee replacement, doing reasonably well. Pain is controlled. She has got some anemia, but asymptomatic. Creatinine is a little bit elevated and we are going to stop her Toradol. PLAN: 1. DVT prophylaxis including thigh-high TEDs, SCDs, and aspirin twice a day. 2. PT/OT. Weight bear as tolerated. Right total knee protocol. 3. Pain control, doing okay with current pain regimen. 4. Elevated creatinine. We are going to stop her Toradol. Encourage p.o. intake. 5. Disposition: She is hoping to be discharged to rehab. We are just waiting for insurance approval and institutional approval.
[2020-05-17] MEDS: SENNA 8.6 MG TAB PO SCH (19:40)
[2020-05-17] MEDS: SIMVASTATIN 40 MG TAB PO SCH (21:13)
[2020-05-18] MEDS: ACETAMINOPHEN 500 MG TAB PO SCH (05:47)
[2020-05-18] MEDS: LEVOTHYROXINE SODIUM 25 MCG TABLET PO SCH (05:48)
[2020-05-18] MEDS ORDERED: INSULIN GLARGINE SOLOSTAR 100 UNITS/ML 3 ML PEN SC ONE (07:30)
[2020-05-18 08:20] LABS: Hematocrit (blood only) 25.4 % (37-47); Hemoglobin 7.8 g/dL (12.0-16.0)
[2020-05-18] MEDS: INSULIN ASPART 100 UNITS/ML 3 ML PEN SC SCH (08:25)
[2020-05-18] MEDS: FERROUS GLUCONATE 324 MG TAB PO SCH (08:28)
[2020-05-18] MEDS: ASPIRIN 81 MG ECTAB PO SCH (08:29)
[2020-05-18] MEDS: CHOLECALCIFEROL 1,000 UNITS 25 MCG TAB PO SCH (08:29)
[2020-05-18] MEDS: PANTOprazole 40 MG TAB PO SCH (08:29)
[2020-05-18] MEDS: levETIRAcetam 250 MG TAB PO SCH (08:29)
[2020-05-18] MEDS: MULTIVITAMIN TAB PO SCH (08:29)
[2020-05-18] MEDS: METOPROLOL SUCC 25MG EXT REL TAB PO SCH (08:29)
[2020-05-18] MEDS: lisinopriL 10 MG TAB PO SCH (08:29)
[2020-05-18] MEDS: ASCORBIC ACID 500 MG TAB PO SCH (08:29)
[2020-05-18] MEDS: DOCUSATE SODIUM 100 MG CAP PO SCH (08:34)
[2020-05-18 08:49] LABS: BUN Creatinine Ratio 18.5 (10-20); Creatinine Clr Calc Pharmacy 35.5 ml/min; Est GFR (African American) 56.9; Est GFR (Non-African American) 49.1; Potassium 4.4 mmol/L (3.5-5.1)
[2020-05-18] MEDS ORDERED: CIPROFLOXACIN 500 MG TAB PO SCH (09:00)
--- NOTE | 2020-05-18 09:00 | Progress Notes ---
DATE: 05/18/2020 SUBJECTIVE: A 80-year-old white female postop day 2 from right knee replacement. She is doing pretty well. Pain is controlled. Denies any chest pain or shortness of breath. Not feeling dizzy or lightheaded. OBJECTIVE: VITAL SIGNS: Temperature is 36.9. Vital signs stable. GENERAL: Shows a pleasant elderly female. She is lying in bed, looks pretty comfortable. EXTREMITIES: Examination of the right leg reveals the leg to be well aligned. Dressing is clean, dry and intact. She can dorsiflex and plantarflex her foot appropriately. She can do a good straight leg raise. LABORATORY DATA: Pending. ASSESSMENT: A 80-year-old white female postop day 2 from right knee replacement, doing pretty well. Pain is controlled. She is neurologically intact. She has been a little anemic, but does have some underlying anemia and asymptomatic. Labs are pending from this morning. PLAN: 1. DVT prophylaxis including thigh-high TEDs, SCDs, and aspirin twice a day. 2. PT/OT. Weight bear as tolerated. Right total knee protocol. 3. Pain control, doing well with current pain regimen. 4. Disposition: Plan to discharge to rehab if labs look okay this morning.
--- NOTE | 2020-05-20 09:29 | Discharge Summary ---
Date of Service May 20, 2020 Admission HPI Per Admitting Provider Documented in the H & P Admission Exam (Per Admitting) Constitutional Documented in the H & P Discharge Data Consultations 05/16/20 09:43 Consult Case Management - Discharge Planning Routine Procedures Performed Operation Date: 05/16/20 07:00 Actual Procedures p Right Total Knee Arthroplasty(Right) - Sandeep Blakely MD Hospital Course (1) Status post total right knee replacement: This patient is a 80 year old female admitted on 05/16/20 and underwent total knee arthroplasty. She tolerated the procedure well and there were no complications. Transferred to the PACU post op and later to the orthopedic floor for further care. She was given ancef for antibiotic prophylaxis. She was also given cipro. She was also given STEPHANIE stockings, SCDs, and aspirin for DVT prophylaxis. Hemoglobin, hematocrit, and vital signs were monitored during her hospital stay and remained stable. She did have some anemia but has some underlying anemia. Did not require any blood transfusions. There were no complications during their hospital stay. By post op day #2 the patient was tolerating a diabetic diet, pain was reasonably controlled with oral pain medicine, and she was participating in physical therapy. On post op day #2 the patient was transferred to a rehab facility. She was given printed discharge instructions including prescriptions for extra strength tylenol, aspirin, tramadol, cipro, and iron supplement. Continue physical therapy, weight bearing as tolerated. Continue STEPHANIE stockings. Follow up approximately 2 weeks post op or sooner if there are problems or concerns. Coding Level of Care Code None Diagnoses Status post total right knee replacement Z96.651
== END 2020-05-18 10:24 ==
LOC: ASU 05:16 → 3E 05:16

== ENCOUNTER 2020-09-11 19:13 | Inpatient (IN) ==
[~2020-09-11 19:13] MED LIST changes: +LABETALOL HCL IV 5 MG/ML 20ML IV PRN; +OPTIRAY 320 125ml IV ONE; -SODIUM CHLORIDE 0.9% 250 ML IV PRN
--- NOTE | 2020-09-11 19:31 | Emergency Department Note ---
Impression & Plan Facial droop, Left sided numbness, Metastatic cancer to brain, Hemorrhage of brain, nontraumatic ED Provider Note Provider: Go Gann MD DATE OF SERVICE: 09/11/2020 CHIEF COMPLAINT: Strokelike symptoms HISTORY OF PRESENT ILLNESS: Patient is a 80-year-old female history of non-small cell lung cancer, prior CVA, and seizure disorder on Keppra presenting here today the ambulance for possible strokelike symptoms. Patient was made a stroke alert prior to arrival and taken directly to CT scanner initial interview began. Patient states around 6 PM she was playing solitaire and had a sudden onset of symptoms where her left hand just did not feel right or move right. Patient states this is highly atypical and otherwise she is doing well today. Patient states he is on a baby aspirin. Denies trauma or recent illness. EMS was called and they noted some left facial droop at some concern for some possible left visual field deficits.. Denies significant numbness in the extremities or the face. Patient did have some dizziness on the way and in the ambulance and dizziness with moving on the stretcher. Denies nauseousness or vomiting. Patient denies shortness of breath or chest pain. She denies any numbness that she is aware of. 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 REVIEW OF SYSTEMS: A total of 10 review of systems was obtained and negative except as stated above in the HPI. PAST MEDICAL HISTORY: As noted above MEDICATIONS: Reviewed home medication list include baby aspirin SOCIAL HISTORY: , lives by herself PHYSICAL EXAM: GENERAL: alert and oriented in no acute distress on stretcher Head: normocephalic and atraumatic EYES: No injection, discharge or icterus. Extraocular motions are intact. NECK: Trachea midline. Supple. ENT: Mucous membranes pink and moist. LUNGS: Airway patent. No retractions. Breath sounds clear with good air entry bilaterally. HEART: Regular rate and rhythm. No chest wall tenderness ABDOMEN: Soft and non-tender, without guarding or rebound. SKIN: Acyanotic, warm, dry, without rashes EXTREMITIES: Without swelling, tenderness or deformity NEUROLOGICAL: No aphasia. Left facial droop but no slurred speech. Sensation to gross touch normal on face but no sensation of the left arm or leg to touch. There is some slight [id number] ataxia in the left side and slight left hand weakness. No significant weakness of the right or left lower extremity. No [id number] ataxia of the lower extremities appreciated. EK bpm normal sinus rhythm. No PVC or PAC. No acute ST segment elevation noted with some inferior T wave inversions noted and a prolonged QT of 492. Compared to previous from April 242019 lengthened QT and inferior T wave inversions. CONTINUOUS CARDIAC MONITORING: was ordered and showed a heart rate of 88 bpm in normal sinus rhythm Patient's laboratory studies and imaging reviewed. Differential includes Infection, dehydration, metabolic abnormality, hypo/hyperglycemia, electrolyte disturbance, anemia, hypoxia, cardiac sources, intracerebral event, toxicologic, neurologic, as well as other pathologies. IMPRESSION/MEDICAL DECISION MAKING: Patient made Edilberto prior to arrival. Taken immediately to CT scan. Does have a left facial droop however no significant slurred speech or aphasia. Patient noted to be hypertensive. Patient on aspirin but no other blood thinners. CT scan discussed with radiology concerning for new intracranial metastatic disease with a 10 mm hemorrhagic focus in the right parietal lobe likely from metastasis. No evidence of midline shift or hydrocephalus for the CT report. Minimal in nature. Patient does have a history of lung cancer not currently on chemotherapy. Patient initially denies numbness in questioning but on exam has no sensation of left arm or leg. Has some left-sided neglect. Protecting her airway and does not appear obtunded in any way. CTAs with some moderate to severe carotid plaques 60 to 50% unchanged from previous available of the radiology report. No other significant vascular abnormality was noted beyond the previously reported intracranial metastasis findings. Discussed with telestroke initially. Not a TPA candidate due to the hemorrhage and metastatic disease in the brain found on CT. Basic labs were obtained. No significant leukocytosis noted with mild anemia on blood work. Somewhat hyperglycemic. Telestroke did evaluate the patient in the room. Discussed with neurosurgery at [place] after discussion with the patient who recommended 6 mg of Decadron now and 4 mg every 6 hours going forward. Relative systolic blood pressure cap of approximately 160 systolic was recommended and she has as needed labetalol for this. Given her prior partial lung resections did require small amount of oxygen here but doubt large PE or significant pulmonary infection at this time. Given the weather and in discussion with [facility] believes she can be monitored here overnight and the hospitalist team was contacted. Attempted to contact the patient's sisters via phone per her request but were unable to be reached by myself. DIAGNOSIS: Left facial droop, left-sided numbness, intracranial brain metastasis with hemorrhage DISPOSITION: Hospitalist to evaluate and the patient is in agreement with this plan Critical Care I have personally spent 35 minutes of critical care time in the direct management of this patient. This includes bedside care, interpretation of diagnostic studies, and testing, discussion with consultants, patient, and family members, and other required patient management activities. These 35 minutes is in excess of all separately billable procedures. Past Med/Surg History Medical History (Updated 09/11/20 @ 21:28 by Oly Blakely PA-C) Anemia chronic iron deficiency anemia in setting of ulcerative colitis (does receive routine iron infusions), under surveillance of [facility] hematology/GI. Arthritis Depression Diabetes mellitus, type 2 NIDDM High cholesterol Hypertension Hypothyroidism Left knee DJD Nocturnal hypoxia 2L/min NC HS Non-small cell cancer of right lung s/p lower and middle lung lobe resection (2016), no chemo or xrt PVCs (premature ventricular contractions) Seizure disorder Ulcerative colitis on Remicade, follows with [facility] GI Surgical History (Updated 09/11/20 @ 21:28 by Oly Blakely PA-C) History of breast biopsy History of colonoscopy History of lobectomy of lung Right VATS middle and lower lobectomy: 07/11/17: Grade 2 view, MAC#3, BANG History of repair of rotator cuff History of tonsillectomy History of tubal ligation S/P right rotator cuff repair Status post total right knee replacement Family History Sister Family history of diabetes mellitus Other Heart disease Social History Smoking Status: Former smoker Second Hand Exposure: No; Hx Alcohol Use: No Hx Substance Use: No Preferred Language: Turkmen Communication Ability: Effective Visual Impairment: No Limitations Zig Zag Stitcher Required: No Beliefs That Will Affect Care: None marital status: / Current Living Situation: Alone Feels Safe at Home: Yes Assistive Devices: Glasses, Oxygen - at Night and Walker Allergies Allergies Allergy/AdvReac Type Severity Reaction Status Date / Time pembrolizumab [From [employer]] AdvReac Mild Diarrhea Verified 09/11/20 21:05 Home Meds Home Medications Medication Instructions Recorded Confirmed cholecalciferol (vitamin D3) 1,000 unit PO QAM 04/27/18 09/11/20 omeprazole 20 mg PO QAM 04/27/18 09/11/20 metoprolol succinate 25 mg PO QAM 08/11/18 09/11/20 simvastatin 40 mg PO HS 08/11/18 09/11/20 Oxygen Home #1 ea 02/04/20 09/11/20 blood-glucose meter #1 ea 02/04/20 09/11/20 lancets 33 gauge #100 ea 02/04/20 09/11/20 metronidazole 1 % topical gel 1 appln TOP HS PRN 02/04/20 09/11/20 denosumab 60 mg/mL subcutaneous 60 mg SUBCUT .COMPLEX ml 04/05/20 09/11/20 syringe glipizide 5 mg tablet 5 mg PO BID 04/05/20 09/11/20 infliximab-dyyb 100 mg intravenous See Rx Instructions IV .COMPLEX 04/05/20 09/11/20 solution lisinopril 30 mg PO QAM 05/01/20 09/11/20 levetiracetam 750 mg PO BID 09/11/20 09/11/20 levothyroxine 25 mcg PO DAILYBB 09/11/20 09/11/20 Previous Rx's Medication Instructions Recorded 3-in-1 Commode #1 ea 02/04/20 Wheeled Walker #1 ea 02/04/20 tramadol 50 - 100 mg PO Q6H PRN #40 tab 05/17/20 amoxicillin 500 mg tablet 2,000 mg PO ONCE #4 tab 08/22/20 Results & Data (ED) Vital Signs Vital Signs - 24 hr 09/11/20 19:13 09/11/20 19:31 09/11/20 19:45 Temperature 36.9 C Temperature Source Oral Pulse Rate 108 H 94 H 89 Pulse Rate from SpO2 Sensor 92 H 89 Pulse Rhythm Regular Pulse Strength Normal Respiratory Rate 16 19 18 Respiratory Effort / Characteristics Non-Labored Respiratory Depth Normal Respiratory Pattern Regular Blood Pressure 191/71 H 190/77 H 179/90 H Blood Pressure Mean 111 114 119 Blood Pressure Position Lying Pulse Oximetry 92 91 83 L Oxygen Delivery Method Room Air Oxygen Flow Rate Sepsis Recent Fever Within 48 Hours No Sepsis New/Unexplained Change in Mental Status N/A Sepsis Action Taken by Nursing No Action Required 09/11/20 20:00 09/11/20 20:15 09/11/20 20:31 Temperature Temperature Source Pulse Rate 108 H 90 84 Pulse Rate from SpO2 Sensor 82 Pulse Rhythm Pulse Strength Respiratory Rate 20 20 17 Respiratory Effort / Characteristics Respiratory Depth Respiratory Pattern Blood Pressure 198/97 H 193/96 H 196/89 H Blood Pressure Mean 130 128 124 Blood Pressure Position Pulse Oximetry 96 81 L Oxygen Delivery Method Nasal Cannula Oxygen Flow Rate 2 Sepsis Recent Fever Within 48 Hours Sepsis New/Unexplained Change in Mental Status Sepsis Action Taken by Nursing 09/11/20 20:48 09/11/20 21:00 09/11/20 21:10 Temperature Temperature Source Pulse Rate 56 L 85 81 Pulse Rate from SpO2 Sensor 67 86 79 Pulse Rhythm Pulse Strength Respiratory Rate 26 H 21 22 Respiratory Effort / Characteristics Respiratory Depth Respiratory Pattern Blood Pressure 191/65 H 163/90 H Blood Pressure Mean 107 114 Blood Pressure Position Pulse Oximetry 97 98 94 Oxygen Delivery Method Oxygen Flow Rate Sepsis Recent Fever Within 48 Hours Sepsis New/Unexplained Change in Mental Status Sepsis Action Taken by Nursing 09/11/20 21:15 09/11/20 21:30 09/11/20 21:31 Temperature Temperature Source Pulse Rate 75 75 81 Pulse Rate from SpO2 Sensor 75 Pulse Rhythm Pulse Strength Respiratory Rate 25 H 21 23 Respiratory Effort / Characteristics Respiratory Depth Respiratory Pattern Blood Pressure Blood Pressure Mean Blood Pressure Position Pulse Oximetry 96 Oxygen Delivery Method Oxygen Flow Rate Sepsis Recent Fever Within 48 Hours Sepsis New/Unexplained Change in Mental Status Sepsis Action Taken by Nursing 09/11/20 21:38 09/11/20 21:45 09/11/20 22:00 Temperature Temperature Source Pulse Rate 67 55 L 50 L Pulse Rate from SpO2 Sensor Pulse Rhythm Pulse Strength Respiratory Rate 23 24 15 Respiratory Effort / Characteristics Respiratory Depth Respiratory Pattern Blood Pressure 174/62 H Blood Pressure Mean 99 Blood Pressure Position Pulse Oximetry Oxygen Delivery Method Oxygen Flow Rate Sepsis Recent Fever Within 48 Hours Sepsis New/Unexplained Change in Mental Status Sepsis Action Taken by Nursing 09/11/20 22:01 09/11/20 22:20 09/11/20 22:30 Temperature Temperature Source Pulse Rate 55 L 75 59 L Pulse Rate from SpO2 Sensor Pulse Rhythm Pulse Strength Respiratory Rate 24 25 H 19 Respiratory Effort / Characteristics Respiratory Depth Respiratory Pattern Blood Pressure 173/54 H Blood Pressure Mean 93 Blood Pressure Position Pulse Oximetry Oxygen Delivery Method Oxygen Flow Rate Sepsis Recent Fever Within 48 Hours Sepsis New/Unexplained Change in Mental Status Sepsis Action Taken by Nursing 09/11/20 22:45 09/11/20 23:00 Temperature Temperature Source Pulse Rate 59 L 58 L Pulse Rate from SpO2 Sensor Pulse Rhythm Pulse Strength Respiratory Rate 24 24 Respiratory Effort / Characteristics Respiratory Depth Respiratory Pattern Blood Pressure Blood Pressure Mean Blood Pressure Position Pulse Oximetry Oxygen Delivery Method Oxygen Flow Rate Sepsis Recent Fever Within 48 Hours Sepsis New/Unexplained Change in Mental Status Sepsis Action Taken by Nursing Laboratory Data Result diagrams: 09/11/20 19:28 09/11/20 19:28 Lab Results 09/11/20 09/11/20 09/11/20 Range/Units 19:28 19:28 19:28 WBC 6.28 (4.8-10.8) K/uL RBC 4.03 L (4.2-5.4) M/uL Hgb 11.5 L (12.0-16.0) g/dL Hct 35.2 L (37-47) % MCV 87.3 (80-100) fL MCH 28.5 (25-34) pg MCHC 32.7 (32-36) g/dL RDW Std Deviation 46.4 H (36.4-46.3) fL RDW Coeff of Timothy 14.5 (11.5-14.5) % Plt Count 356 (130-400) K/uL MPV 11.1 H (7.4-10.4) fL Immature Gran % (Auto) 0.2 % Neut % (Auto) 48.5 % Lymph % (Auto) 30.1 % [place] % (Auto) 6.4 % Eos % (Auto) 14.5 % Baso % (Auto) 0.3 % Neut # (Auto) 3.05 (1.4-6.5) K/uL Lymph # (Auto) 1.89 (1.2-3.4) K/uL [place] # (Auto) 0.40 (0.11-0.59) K/uL Eos # (Auto) 0.91 H (0-0.5) K/uL Baso # (Auto) 0.02 (0-0.2) K/uL Immature Gran # (Auto) 0.01 (0.00-0.02) K/uL PT 10.5 (9.0-12.0) Seconds INR 1.0 (0.9-1.1) APTT 25.1 (21.0-31.0) Seconds PTT Ratio 0.9 Sodium (136-145) mmol/L Potassium (3.5-5.1) mmol/L Chloride (98-107) mmol/L Carbon Dioxide (21-32) mmol/L Anion Gap (3-11) BUN (7-18) mg/dl Creatinine (0.6-1.2) mg/dl Est Cr Clr Drug Dosing ml/min Est GFR ( Amer) Est GFR (Non-Af Amer) BUN/Creatinine Ratio (10-20) Glucose (70-99) mg/dl POC Glucose (70-99) mg/dl Calcium (8.5-10.1) mg/dl Magnesium (1.8-2.4) mg/dl Total Bilirubin (0.2-1) mg/dl AST (15-37) U/L ALT (12-78) U/L Alkaline Phosphatase (45-117) U/L Troponin I (0-0.045) ng/ml Total Protein (6.4-8.2) gm/dl Albumin (3.4-5.0) gm/dl Globulin (2.5-4.0) gm/dl Albumin/Globulin Ratio (0.9-2) COVID-19 Eval Order SARS-CoV-2, RNA, NAAT (NEGATIVE) Blood Type O Positive Antibody Screen NEGATIVE 09/11/20 09/11/20 09/11/20 Range/Units 19:28 19:31 21:15 WBC (4.8-10.8) K/uL RBC (4.2-5.4) M/uL Hgb (12.0-16.0) g/dL Hct (37-47) % MCV (80-100) fL MCH (25-34) pg MCHC (32-36) g/dL RDW Std Deviation (36.4-46.3) fL RDW Coeff of Timothy (11.5-14.5) % Plt Count (130-400) K/uL MPV (7.4-10.4) fL Immature Gran % (Auto) % Neut % (Auto) % Lymph % (Auto) % [place] % (Auto) % Eos % (Auto) % Baso % (Auto) % Neut # (Auto) (1.4-6.5) K/uL Lymph # (Auto) (1.2-3.4) K/uL [place] # (Auto) (0.11-0.59) K/uL Eos # (Auto) (0-0.5) K/uL Baso # (Auto) (0-0.2) K/uL Immature Gran # (Auto) (0.00-0.02) K/uL PT (9.0-12.0) Seconds INR (0.9-1.1) APTT (21.0-31.0) Seconds PTT Ratio Sodium 141 (136-145) mmol/L Potassium 4.0 (3.5-5.1) mmol/L Chloride 109 H (98-107) mmol/L Carbon Dioxide 25 (21-32) mmol/L Anion Gap 7.0 (3-11) BUN 31 H (7-18) mg/dl Creatinine 1.14 (0.6-1.2) mg/dl Est Cr Clr Drug Dosing 35.1 ml/min Est GFR ( Amer) 53.3 Est GFR (Non-Af Amer) 46.0 BUN/Creatinine Ratio 27.5 H (10-20) Glucose 237 H (70-99) mg/dl POC Glucose 242 H (70-99) mg/dl Calcium 8.6 (8.5-10.1) mg/dl Magnesium 1.8 (1.8-2.4) mg/dl Total Bilirubin 0.1 L (0.2-1) mg/dl AST 24 (15-37) U/L ALT 19 (12-78) U/L Alkaline Phosphatase 108 (45-117) U/L Troponin I < 0.015 (0-0.045) ng/ml Total Protein 7.0 (6.4-8.2) gm/dl Albumin 3.2 L (3.4-5.0) gm/dl Globulin 3.8 (2.5-4.0) gm/dl Albumin/Globulin Ratio 0.8 L (0.9-2) COVID-19 Eval Order Covid19 IDNow atMVTC SARS-CoV-2, RNA, NAAT (NEGATIVE) Blood Type Antibody Screen 09/11/20 09/11/20 Range/Units 21:15 22:23 WBC (4.8-10.8) K/uL RBC (4.2-5.4) M/uL Hgb (12.0-16.0) g/dL Hct (37-47) % MCV (80-100) fL MCH (25-34) pg MCHC (32-36) g/dL RDW Std Deviation (36.4-46.3) fL RDW Coeff of Timothy (11.5-14.5) % Plt Count (130-400) K/uL MPV (7.4-10.4) fL Immature Gran % (Auto) % Neut % (Auto) % Lymph % (Auto) % [place] % (Auto) % Eos % (Auto) % Baso % (Auto) % Neut # (Auto) (1.4-6.5) K/uL Lymph # (Auto) (1.2-3.4) K/uL [place] # (Auto) (0.11-0.59) K/uL Eos # (Auto) (0-0.5) K/uL Baso # (Auto) (0-0.2) K/uL Immature Gran # (Auto) (0.00-0.02) K/uL PT (9.0-12.0) Seconds INR (0.9-1.1) APTT (21.0-31.0) Seconds PTT Ratio Sodium (136-145) mmol/L Potassium (3.5-5.1) mmol/L Chloride (98-107) mmol/L Carbon Dioxide (21-32) mmol/L Anion Gap (3-11) BUN (7-18) mg/dl Creatinine (0.6-1.2) mg/dl Est Cr Clr Drug Dosing ml/min Est GFR ( Amer) Est GFR (Non-Af Amer) BUN/Creatinine Ratio (10-20) Glucose (70-99) mg/dl POC Glucose 206 H (70-99) mg/dl Calcium (8.5-10.1) mg/dl Magnesium (1.8-2.4) mg/dl Total Bilirubin (0.2-1) mg/dl AST (15-37) U/L ALT (12-78) U/L Alkaline Phosphatase (45-117) U/L Troponin I (0-0.045) ng/ml Total Protein (6.4-8.2) gm/dl Albumin (3.4-5.0) gm/dl Globulin (2.5-4.0) gm/dl Albumin/Globulin Ratio (0.9-2) COVID-19 Eval Order SARS-CoV-2, RNA, NAAT NEGATIVE (NEGATIVE) Blood Type Antibody Screen Administered Medications Discontinued Medications Dexamethasone (Dexamethasone Sod Inj 10 Mg/Ml Vial) 6 mg IV NOW ONE Stop: 09/11/20 20:48 Last Admin: 09/11/20 21:17 Dose: 6 mg Documented by: [id number] Insulin Glargine (Lantus Per Unit Charge) 15 units SQ NOW STA Stop: 09/11/20 21:19 Last Admin: 09/11/20 22:36 Dose: 15 units Documented by: [id number] Cosigned by: [id number] Ioversol (Optiray 320 125ml) 118 ml IV ONCE ONE Stop: 09/11/20 19:01 Last Admin: 09/11/20 19:01 Dose: 118 ml Documented by: [id number] Discharge Plan Visit Data Chief Complaint: Stroke Alert Stated Complaint: STROKE SYMPTOMS ED Provider: Go Gann Discharge Problem: Facial droop, Left sided numbness, Metastatic cancer to brain, Hemorrhage of brain, nontraumatic Forms Stand Alone Forms: [facility] [employer] Prescriptions Prescriptions: No Action amoxicillin 500 mg tablet 2,000 mg PO ONCE Qty: 4 RF: 3 (DME) 3-in-1 [facility] See Rx Instructions .ROUTE .MEDSUPPLY Qty: 1 RF: 0 (DME) Wheeled Walker [facility] See Rx Instructions .ROUTE .MEDSUPPLY Qty: 1 RF: 0 metronidazole [Metrogel] 1 % gel 1 appln TOP HS PRN (Reason: Rosacea) RF: 0 (DME) lancets [OneTouch Delica Lancets] 33 gauge misc See Rx Instructions .ROUTE .MEDSUPPLY Qty: 100 RF: 0 (DME) blood-glucose meter [OneTouch Verio Flex Start] Kit See Rx Instructions .ROUTE .MEDSUPPLY Qty: 1 RF: 0 (DME) Oxygen Home Liters Per Minute See Rx Instructions .ROUTE .MEDSUPPLY Qty: 1 RF: 0 Prolia 60 mg/mL syringe 60 mg subcut .COMPLEX RF: 0 glipizide 5 mg tablet 5 mg PO BID RF: 0 Inflectra 100 mg recon soln See Rx Instructions IV .COMPLEX RF: 0 omeprazole 20 mg Capsule,Delayed Release(Dr/Ec) 20 mg PO QAM RF: 0 cholecalciferol (vitamin D3) 1,000 unit Capsule 1,000 unit PO QAM RF: 0 levothyroxine 25 mcg tablet 25 mcg PO DAILYBB RF: 0 levetiracetam 750 mg tablet 750 mg PO BID RF: 0 simvastatin 40 mg Tablet 40 mg PO HS RF: 0 metoprolol succinate 25 mg Tablet Extended Release 24 Hr 25 mg PO QAM RF: 0 tramadol 50 mg Tablet 50 - 100 mg PO Q6H PRN (Reason: pain) Qty: 40 RF: 0 lisinopril 30 mg Tablet 30 mg PO QAM RF: 0 Discharge Problem: Hemorrhage of brain, nontraumatic Qualifiers: Intracerebral hemorrhage etiology: nontraumatic Cerebral hemorrhage location: cerebral hemisphere, subcortical portion Laterality: right Qualified Code(s): I61.0 - Nontraumatic intracerebral hemorrhage in hemisphere, subcortical
[2020-09-11 19:44] LABS: Basophils # (auto) 0.02 K/uL (0-0.2); Basophils % (auto) 0.3 %; Eosinophils # (auto) 0.91 K/uL (0-0.5); Eosinophils % (auto) 14.5 %; Hematocrit (blood only) 35.2 % (37-47); Hemoglobin 11.5 g/dL (12.0-16.0); Immature Granulocytes # (auto) 0.01 K/uL (0.00-0.02); Immature Granulocytes % (auto) 0.2 %; Lymphocytes # (auto) 1.89 K/uL (1.2-3.4); Lymphocytes % (auto) 30.1 %; Mean Corpuscular Hemoglobin 28.5 pg (25-34); Mean Corpuscular Hgb Conc 32.7 g/dL (32-36); Mean Corpuscular Volume 87.3 fL (80-100); Mean Platelet Volume 11.1 fL (7.4-10.4); Monocytes % (auto) 6.4 %; Neutrophils # (auto) 3.05 K/uL (1.4-6.5); Neutrophils % (auto) 48.5 %; Platelet Count 356 K/uL (130-400); RDW Coefficient of Variation 14.5 % (11.5-14.5); RDW Standard Deviation 46.4 fL (36.4-46.3); Red Blood Count 4.03 M/uL (4.2-5.4); White Blood Count 6.28 K/uL (4.8-10.8)
--- NOTE | 2020-09-11 19:45 | CT Scan Report ---
CT head/brain wo con CLINICAL HISTORY: 80 years-old Female with Stroke Like Symptoms. Acute strokelike symptoms TECHNIQUE: Multiple axial CT images of the head were obtained without contrast. A dose lowering tech nique was utilized adhering to the principles of ALARA. COMPARISON: CTA head and neck of same day, head CT 11/17/2018. FINDINGS: Moderate to large area of vasogenic edema is noted within the left parietal and temporal lobes to mod erate sized area of vasogenic edema noted within the right parietal lobe containing a 10 mm hemorrhag ic focus on image 22 series 2. Areas of edema resolved in gyral expansion with local sulcal effacemen t. No midline shift, hydrocephalus or definite acute territorial infarct. No herniation. Mild age-rel ated involutional changes. There is no acute calvarial fracture. Mastoid air cells are clear. The paranasal sinuses are also gen erally clear. Soft tissues are unremarkable. Prior bilateral lens repair. IMPRESSION: Vasogenic edema within the bilateral parietal lobes and left temporal lobe are suspicious for underly ing intra-axial lesions, likely intracranial metastatic disease in this patient with history of known lung cancer. There is a 10 mm hemorrhagic focus within the right parietal lobe suggestive of hemorrh agic metastasis. There is resultant gyral expansion and sulcal effacement within these distributions without midline shift, hydrocephalus or herniation. Correlation with follow-up contrast-enhanced MRI recommended. Findings were discussed with Dr. Gann on 09/11/2020 at 7:35 PM. ACT 112: Negative or not required by law. The above report was generated using voice recognition software. It may contain grammatical, syntax o r spelling errors. Electronically signed by: David Solis M.D. 09/11/2020 7:43 PM
[2020-09-11 19:54] LABS: Partial Thromboplastin Ratio 0.9; Partial Thromboplastin Time 25.1 Seconds (21.0-31.0); Prothrombin Time 10.5 Seconds (9.0-12.0)
--- NOTE | 2020-09-11 19:56 | CT Scan Report ---
CT angio neck with con, CT angio head w con CLINICAL HISTORY: 80 years-old Female with Stroke Like Symptoms. Acute strokelike symptoms COMPARISON STUDY: Head CT of same day, CTA had and neck 11/15/2018 TECHNIQUE: Following the IV administration of 118 mL of Optiray 320, CT angiogram of the head and nec k was performed from the aortic arch to the skull apex. Images are reviewed in the axial, sagittal, a nd coronal planes. 3-D MIPS images are created and assessed. IV contrast was administered without com plication. All measurements were calculated based on NASCET criteria. A dose lowering technique was utilized adhering to the principles of ALARA. CT DOSE: 1111.42 mGy.cm FINDINGS: Mixed plaque of the thoracic aortic arch and proximal great vessels without high-grade stenosis. The innominate and common carotid arteries are patent. Moderate to extensive mixed plaque of the carotid bulbs and proximal internal carotid arteries. This results in 60% luminal narrowing of the proximal c ervical segment left ICA, unchanged from comparison. High-grade stenosis at the origin of the right e xternal carotid artery with approximately 50% luminal narrowing of the proximal right ICA. Calcified plaque of the cavernous and supraclinoid segments of the internal carotid arteries without high-grade stenosis. The middle and anterior cerebral arteries are patent. Codominant and patent vertebral susan stacey. There is mild multifocal luminal narrowing involving the V2 segments secondary to spondylitic s purring and facet arthrosis in the cervical spine. The basilar and posterior cerebral arteries are pa tent. The cerebral venous sinuses are also patent. Vasogenic edema within the bilateral cerebral hemispheres. Ill-defined increased enhancement is noted within the right parietal lobe. Severe emphysema. Volume loss of the right lung is noted with tiny foci of air noted within the soft tissues adjacent to the right lung apex. Decreased size of the right pleural effusion with chronic pl eural thickening. There are a few tiny 3 mm solid nodules noted within the lung apices. Multilevel de generative changes of the spine. IMPRESSION: 1. Multiple territorial vasogenic edema within the bilateral cerebral hemispheres is suspicious for i ntracranial metastasis. 2. Moderate to severe mixed plaque of the bilateral carotid bulbs redemonstrated resulting in 60% lum inal narrowing of the proximal cervical segment left ICA and approximately 50% stenosis on the right. These findings are unchanged from comparison. 3. Otherwise unremarkable CTA of the head and neck. ACT 112: Negative or not required by law. The above report was generated using voice recognition software. It may contain grammatical, syntax o r spelling errors. Electronically signed by: David Solis M.D. 09/11/2020 7:55 PM
[2020-09-11 20:06] LABS: Alanine Aminotransferase 19 U/L (12-78); Albumin Level 3.2 gm/dl (3.4-5.0); Aspartate Aminotransferase 24 U/L (15-37); BUN Creatinine Ratio 27.5 (10-20); Blood Urea Nitrogen 31 mg/dl (7-18); Calcium 8.6 mg/dl (8.5-10.1); Carbon Dioxide 25 mmol/L (21-32); Chloride 109 mmol/L (98-107); Creatinine Clr Calc Pharmacy 35.1 ml/min; Est GFR (African American) 53.3; Glucose 237 mg/dl (70-99); Magnesium 1.8 mg/dl (1.8-2.4); Sodium 141 mmol/L (136-145)
[2020-09-11 20:10] LABS: Albumin Globulin Ratio 0.8 (0.9-2); Alkaline Phosphatase 108 U/L (45-117); Bilirubin,Total 0.1 mg/dl (0.2-1); Globulin 3.8 gm/dl (2.5-4.0); Troponin I < 0.015 ng/ml (0-0.045)
[2020-09-11] MEDS ORDERED: DEXAMETHASONE SOD INJ 10 MG/ML VIAL IV ONE (20:47)
[2020-09-11] MEDS ORDERED: LANTUS PER UNIT CHARGE SQ STA (21:18)
--- NOTE | 2020-09-11 21:21 | History & Physical Report ---
Date of Service September 11, 2020 Assessment & Plan (1) Facial droop: (2) Left sided numbness: (3) Metastatic cancer to brain: (4) Hemorrhage of brain, nontraumatic: (5) Non-small cell cancer of right lung: (6) Seizure disorder: (7) Diabetes mellitus, type 2: (8) Hypertension: (9) Nocturnal hypoxia: This is a 80yo F with a PMH of non-small cell cancer of R lung s/p lower and middle lung lobe resection in 2017, history of CVA, seizure disorder, DM II, hypothyroidism, PAD, HTN and other medical problems listed below who presents with strokelike symptoms starting this evening and was found to have multiple territorial vasogenic edema within the bilateral cerebral hemispheres is suspicious for intracranial metastasis. Please see Dr. Lund's addendum for assessment and plan. History of Present Illness Chief Complaint: strokelike symptoms Primary Care Provider: Danny Ibarra MD This is a 80yo F with a PMH of non-small cell cancer of R lung s/p lower and middle lung lobe resection in 2017, history of CVA, seizure disorder, ulcerative colitis, DM II, hypothyroidism, PAD, HTN, nocturnal hypoxia on 2 L NC HS and other medical problems listed below who presents with strokelike symptoms starting this evening. Patient was playing solitaire at home when she can no longer shuffle with left hand. This is an acute onset and prompted patient to call EMS. Denies any slurred speech, visual changes or ambulatory dysfunction at this time. Was found by EMS to have left facial droop and visual changes. Was arrived at [facility], stroke alert was called. Patient has lung cancer and follows with Dr. Villeda but has not been on chemotherapy since early December 2017. Had increasing symptoms of colitis while on Keytruda and elected to discontinue. History of previous stroke and is on baby aspirin. Takes all medications as scheduled. Currently feeling fatigued and occasionally dizzy. Denies any fever, chills, headache, chest pain, SOB, nausea, vomiting, abdominal pain or dysuria. Chronic diarrhea in setting of UC. Denies any weakness or sensory changes of extremities that she is aware of. In ED, patient noted to be afebrile and hemodynamically stable. Hypertensive at 191/71. CT head with vasogenic edema within the bilateral parietal lobes and left temporal lobe are suspicious for underlying intra-axial lesions, likely intracranial metastatic disease in this patient with history of known lung cancer. There is a 10 mm hemorrhagic focus within the right parietal lobe suggestive of hemorrhagic metastasis. Not a TPA candidate due to the hemorrhage and metastatic disease in the brain found on CT. Dr. Gann discussed with [place] [facility] who recommended 6 mg of Decadron now and 4 mg Q6H. Relative systolic blood pressure cap of approximately 160 systolic was recommended. Allergies Allergy/AdvReac Type Severity Reaction Status Date / Time pembrolizumab [From [employer]] AdvReac Mild Diarrhea Verified 09/11/20 21:05 Home Medications Medication Instructions Recorded Confirmed Type cholecalciferol (vitamin D3) 1,000 unit PO QAM 04/27/18 09/11/20 History omeprazole 20 mg PO QAM 04/27/18 09/11/20 History metoprolol succinate 25 mg PO QAM 08/11/18 09/11/20 History simvastatin 40 mg PO HS 08/11/18 09/11/20 History 3-in-1 Commode #1 ea 02/04/20 09/11/20 Rx Oxygen Home #1 ea 02/04/20 09/11/20 History Wheeled Walker #1 ea 02/04/20 09/11/20 Rx blood-glucose meter #1 ea 02/04/20 09/11/20 History lancets 33 gauge #100 ea 02/04/20 09/11/20 History metronidazole 1 % topical gel 1 appln TOP HS PRN 02/04/20 09/11/20 History denosumab 60 mg/mL subcutaneous 60 mg SUBCUT .COMPLEX ml 04/05/20 09/11/20 History syringe glipizide 5 mg tablet 5 mg PO BID 04/05/20 09/11/20 History infliximab-dyyb 100 mg intravenous See Rx Instructions IV .COMPLEX 04/05/20 09/11/20 History solution lisinopril 30 mg PO QAM 05/01/20 09/11/20 History tramadol 50 - 100 mg PO Q6H PRN #40 tab 05/17/20 09/11/20 Rx amoxicillin 500 mg tablet 2,000 mg PO ONCE #4 tab 08/22/20 09/11/20 Rx levetiracetam 750 mg PO BID 09/11/20 09/11/20 History levothyroxine 25 mcg PO DAILYBB 09/11/20 09/11/20 History Past Med/Surg History Medical History (Updated 09/11/20 @ 21:28 by Oly Blakely PA-C) Anemia chronic iron deficiency anemia in setting of ulcerative colitis (does receive routine iron infusions), under surveillance of [facility] hematology/GI. Arthritis Depression Diabetes mellitus, type 2 NIDDM High cholesterol Hypertension Hypothyroidism Left knee DJD Nocturnal hypoxia 2L/min NC HS Non-small cell cancer of right lung s/p lower and middle lung lobe resection (2017), no chemo or xrt PVCs (premature ventricular contractions) Seizure disorder Ulcerative colitis on Remicade, follows with [facility] GI Surgical History (Updated 09/11/20 @ 21:28 by Oly Blakely PA-C) History of breast biopsy History of colonoscopy History of lobectomy of lung Right VATS middle and lower lobectomy: 07/11/17: Grade 2 view, MAC#3, BANG History of repair of rotator cuff History of tonsillectomy History of tubal ligation S/P right rotator cuff repair Status post total right knee replacement Family History Sister Family history of diabetes mellitus Other Heart disease Social History Smoking Status: Former smoker Second Hand Exposure: No; Hx Alcohol Use: No Hx Substance Use: No Preferred Language: Japanese Communication Ability: Effective Visual Impairment: No Limitations 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 Physical Exam Physical Exam: General Appearance: WD/WN, vitals as above, NAD, sitting up in bed, conversing easily Head: normocephalic, atraumatic Eyes: normal inspection, PERRL, conjunctivae normal, anicteric sclerae ENT: external ear and nose normal, oropharynx normal Neck: normal visual inspection, trachea midline, no thyromegaly Respiratory: normal respiratory effort, lungs clear to auscultation, no wheeze, rales, rhonchi. No accessory muscle use Cardiovascular: regular rate, rhythm, no murmur, normal peripheral pulses, no BLE edema. Vessels: no JVD Chest: normal inspection of chest Abdomen/GI: normal bowel sounds, soft, nontender, no hepatosplenomegaly Extremities/Musculoskeletal: no cyanosis or clubbing Neurologic: PERRL, EOMI, accommodation nl, + L facial droop, no dysarthria, CN's II-XI intact bilaterally and moves all extremities. No sensation to touch in LUE or LLE. LUE and LLE with 4/5 MAHAD. Psychiatric: A+Ox3, depressed mood Skin: no rashes, normal color, warm/dry Results & Data Results & Data ([facility]) Vital Signs (Past 12 Hours) Vital Signs Temp Pulse Resp BP Pulse Ox 09/11/20 20:31 84 17 196/89 H 81 L 09/11/20 20:15 90 20 193/96 H 09/11/20 20:00 108 H 20 198/97 H 96 09/11/20 19:45 89 18 179/90 H 83 L 09/11/20 19:31 94 H 19 190/77 H 91 09/11/20 19:13 36.9 C 108 H 16 191/71 H 92 Laboratory Results Short CBC 09/11/20 Range/Units 19:28 WBC 6.28 (4.8-10.8) K/uL Hgb 11.5 L (12.0-16.0) g/dL Hct 35.2 L (37-47) % Plt Count 356 (130-400) K/uL BMP 09/11/20 19:28 Sodium 141 Potassium 4.0 Chloride 109 H Carbon Dioxide 25 BUN 31 H Creatinine 1.14 Glucose 237 H Calcium 8.6 Cardiac Enzymes 09/11/20 Range/Units 19:28 Troponin I < 0.015 (0-0.045) ng/ml Liver Function 09/11/20 Range/Units 19:28 Total Bilirubin 0.1 L (0.2-1) mg/dl AST 24 (15-37) U/L ALT 19 (12-78) U/L Alkaline Phosphatase 108 (45-117) U/L Albumin 3.2 L (3.4-5.0) gm/dl Diagnostic Findings Head CT: IMPRESSION: Vasogenic edema within the bilateral parietal lobes and left temporal lobe are suspicious for underlying intra-axial lesions, likely intracranial metastatic disease in this patient with history of known lung cancer. There is a 10 mm hemorrhagic focus within the right parietal lobe suggestive of hemorrhagic metastasis. There is resultant gyral expansion and sulcal effacement within these distributions without midline shift, hydrocephalus or herniation. Correlation with follow-up contrast-enhanced MRI recommended. Head/neck CTA: IMPRESSION: 1. Multiple territorial vasogenic edema within the bilateral cerebral hemispheres is suspicious for intracranial metastasis. 2. Moderate to severe mixed plaque of the bilateral carotid bulbs redemonstrated resulting in 60% luminal narrowing of the proximal cervical segment left ICA and approximately 50% stenosis on the right. These findings are unchanged from comparison. 3. Otherwise unremarkable CTA of the head and neck. CXR: pending Supervising Physician Co-Signing Physician Notes IM ATTENDING : Patient seen and examined. History obtained from patient and records. Preceding documentation by Ms. Oly Blakely PA-C reviewed. FINAL ASSESSMENT AND PLAN as follows : ICH Tumor bleed, new brain mets, hx NSCLC sp incomplete Keytruda Rx Hypertensive crisis secondary to above Seizure disorder, stable History CVA/PVD as per records COPD as per records, nocturnal hypoxemia on O2 at night, transient hypoxemia at the ER without symptoms Chronic diarrhea symptoms from chronic colitis DM2 on oral medications, suboptimal control as of recent outpatient hemoglobin A1c of 8.13 March 2020 Chronic anemia, hemoglobin at baseline Past tobacco abuse PCU given uncontrolled blood pressure Decadron for tumorigenic bleed MRI brain contrast study RE brain mets Neurology consult Re: Tumor bleed Radiation oncology consultation Re: New brain mets Request AM provider to update patient [facility] oncologist (Dr. Villeda) of developments and inquire about obtaining possible inpatient Palliative Care consultation discuss goals of care given metastatic disease. Basal insulin, ISS BG goal [id number], carb count coverage, update hemoglobin A1c DVT prophylaxis. SCDs RE ICH Full code Text document was generated using [employer] voice recognition software. It may contain grammatical or spelling errors. Kindly contact undersigned for clarification of any documentation item in question. (1) Hemorrhage of brain, nontraumatic Cerebral hemorrhage location: cerebral hemisphere, subcortical portion Intracerebral hemorrhage etiology: nontraumatic Laterality: right Qualified Code(s): I61.0 - Nontraumatic intracerebral hemorrhage in hemisphere, subcortical
[2020-09-12] MEDS ORDERED: GLUCOSE 10 TABS/TUBE PO PRN (01:52)
[2020-09-12] MEDS ORDERED: GLUCAGON FOR INJ 1 MG VIAL SQ PRN (01:52)
[2020-09-12] MEDS ORDERED: DEXTROSE 50% 50 ML SYRINGE IV PRN (01:52)
[2020-09-12] MEDS ORDERED: GLUCOSE 40% GEL 15 GM TUBE PO PRN (01:52)
[2020-09-12] MEDS ORDERED: oxyCODONE HCL IR 5 MG TAB (IMMEDIATE RELEASE) PO PRN (01:52)
[2020-09-12] MEDS ORDERED: LACTATED RINGER'S 1,000 ML IV ONE (01:52)
[2020-09-12] MEDS ORDERED: ACETAMINOPHEN 325 MG TAB PO PRN (01:52)
[2020-09-12] MEDS ORDERED: CARBOHYDRATES FOR HYPOGLYCEMIA PO PRN (01:52)
[2020-09-12] MEDS ORDERED: PROMETHAZINE HCL 6.25 MG in SODIUM CHLORIDE 0.9% 50 ML IV PRN (01:52)
[2020-09-12] MEDS: levETIRAcetam 250 MG TAB PO SCH ×3 (02:27→21:26)
[2020-09-12] MEDS: INSULIN ASPART 100 UNITS/ML 3 ML PEN SC SCH ×5 (02:28→21:27)
[2020-09-12] MEDS: lisinopril 10 MG TAB PO SCH (03:44)
[2020-09-12] MEDS ORDERED: GADOBUTROL 65ML VIAL IV ONE (06:40)
[2020-09-12] MEDS: LEVOTHYROXINE SODIUM 25 MCG TABLET PO SCH (06:44)
[2020-09-12] MEDS: DEXAMETHASONE SOD PHOSPHATE 4 MG in SYRINGE 0 ML IV SCH ×3 (06:44→17:07)
--- NOTE | 2020-09-12 07:37 | XRay Report ---
XR chest 1V portable HISTORY: Low oxygen. COMPARISON: Chest 11/15/2018. Chest CT 07/13/2020. FINDINGS: Volume loss with thickening along the right mediastinum consistent with postoperative britton es within the right lung. This likely accounts for the right tracheal deviation. This remains unchang ed. No pneumothorax. No pleural effusions. Small patchy density at the base of the left lower lobe. T he heart is mildly enlarged. No evidence for pulmonary edema. IMPRESSION: 1. Small patchy density at the base of the left lower lobe. This could be due to atelectasis or devel oping pneumonia. Aspiration not excluded. 2. Stable postoperative changes within the right hemithorax. ACT 112: Negative or not required by law. Electronically signed by: James Villarreal M.D. 09/12/2020 7:36 AM
[2020-09-12 07:43] LABS: Basophils # (auto) 0.01 K/uL (0-0.2); Basophils % (auto) 0.2 %; Eosinophils # (auto) 0.01 K/uL (0-0.5); Eosinophils % (auto) 0.2 %; Hematocrit (blood only) 33.4 % (37-47); Immature Granulocytes # (auto) 0.01 K/uL (0.00-0.02); Immature Granulocytes % (auto) 0.2 %; Lymphocytes # (auto) 0.78 K/uL (1.2-3.4); Lymphocytes % (auto) 12.9 %; Mean Corpuscular Hemoglobin 28.5 pg (25-34); Mean Corpuscular Hgb Conc 32.9 g/dL (32-36); Mean Corpuscular Volume 86.5 fL (80-100); Mean Platelet Volume 10.5 fL (7.4-10.4); Monocytes # (auto) 0.13 K/uL (0.11-0.59); Monocytes % (auto) 2.1 %; Neutrophils # (auto) 5.11 K/uL (1.4-6.5); Neutrophils % (auto) 84.4 %; Platelet Count 308 K/uL (130-400); RDW Coefficient of Variation 14.5 % (11.5-14.5); RDW Standard Deviation 45.3 fL (36.4-46.3); Red Blood Count 3.86 M/uL (4.2-5.4); White Blood Count 6.05 K/uL (4.8-10.8)
--- NOTE | 2020-09-12 07:53 | Magnetic Resonance Report ---
MRI OF THE BRAIN WITHOUT AND WITH IV CONTRAST CLINICAL HISTORY: Brain metastases on CT. Lung cancer. COMPARISON STUDY: MRI of the brain November 16, 2018. Head CT September 11, 2020. TECHNIQUE: Utilizing a 1.5 Gabrielle magnet and dedicated coil, multiplanar, multiecho imaging of the br ain was performed pre and postcontrast administration. IV administration of 5.5 mL of Gadavist contr ast was uneventful. Thin cut T1 post contrast imaging with multiplanar reformats were also performed. FINDINGS: There are no foci of restricted diffusion to suggest acute infarct. Note is made of multipl e enhancing parenchymal lesions. These are new since MRI September 2018 and correspond to the findings on head CT of September 11, 2020. The largest is a partially cystic left parietal lobe lesion which de leon s a few foci of nodular enhancement. This measures 1.8 x 1.6 cm. There is moderate associated vasogen ic edema. There is also a 1.4 cm enhancing right parietal lobe lesion which has moderate associated v asogenic edema. A 1 cm left temporal lobe lesion has mild associated vasogenic edema. There is no mid line shift. There is no evidence for herniation. No calvarial lesions are identified. Ventricular sys tem is unremarkable. Basal cisterns are patent. Orbits are unremarkable. IMPRESSION: Three enhancing parenchymal lesions, the largest of which is a 1.8 x 1.6 cm left parietal lobe lesion. These lesions have moderate associated vasogenic edema and are consistent with metastas es. ACT 112: Negative or not required by law. Electronically signed by: Jordan Conner M.D. 09/12/2020 7:52 AM
[2020-09-12 08:08] LABS: Estimated Average Glucose 186 mg/dl; Hemoglobin A1C 8.1 % (4.5-5.6)
[2020-09-12 08:16] LABS: BUN Creatinine Ratio 30.1 (10-20); Calcium 9.7 mg/dl (8.5-10.1); Creatinine Clr Calc Pharmacy 38.9 ml/min; Est GFR (African American) 60.3; Potassium 3.9 mmol/L (3.5-5.1)
[2020-09-12] MEDS: PANTOprazole 40 MG TAB PO SCH (08:20)
[2020-09-12] MEDS: METOPROLOL SUCC 25MG EXT REL TAB PO SCH (08:20)
[2020-09-12] MEDS ORDERED: INSULIN GLARGINE SOLOSTAR 100 UNITS/ML 3 ML PEN SC SCH (09:00)
[2020-09-12] MEDS ORDERED: lisinopril 10 MG TAB PO SCH (09:00)
--- NOTE | 2020-09-12 09:09 | Radiation OncologyConsultation ---
Date of Consultation September 12, 2020 Assessment & Plan (1) Non-small cell cancer of right lung: Assessment: Ms. Nathan is a 80-year-old female who presents with a history of non-small cell lung carcinoma of the right lung status post right middle and lower lobe lobectomy by Dr. Covington on 07/11/2017. The patient did have pleural fluid cytology suspicious for metastatic carcinoma. The patient did proceed to undergo Keytruda in 2018 which stopped in December 2017 due to colitis. The patient received no further adjuvant therapy. The patient more recently presented with strokelike symptoms to the hospital and was admitted for further work-up and evaluation. MRI of the brain did reveal 3 metastatic lesions with surrounding vasogenic edema. I am now seeing the patient in consultation to discuss the role of radiation therapy. Treatment Options: 1. Hippocampal-sparing whole brain radiation therapy. 2. Stereotactic radiosurgery. 3. Surgical resection. Recommendation: Stereotactic radiosurgery. 5 fractions. Treatment can be done in the outpatient setting. Plan: 1. CT simulation tomorrow for treatment planning for radiation therapy. IV contrast. May be done in the outpatient setting if the patient is discharged earlier. 2. Follow-up with medical oncology in the outpatient setting. Will defer staging work-up to medical oncology. 3. Continue dexamethasone 4 mg 4 times a day PO. 4. Appreciate neurology input. Defer antiseizure medications to neurology if needed. 5. Patient and family encouraged to call us with any further questions or concerns. Rationale/Explanation of Treatment: In general, we did discuss treatment recommendations for the management of metastatic disease to the brain. I did explain to the patient that most often biopsies are not performed given the patient's previous history of cancer unless the patient plans to undergo surgical resection. I discussed treatment options including surgical resection and radiation therapy. The patient defer surgical intervention and would prefer to undergo radiation therapy. I then discussed the advantages and disadvantages of both whole brain radiation therapy and stereotactic radiosurgery. I did discuss the benefits of whole brain radiation therapy with respect to overall intracranial control and the most significant disadvantages including long-term neurocognitive side effects; we then focused or conversation and stereotactic radiosurgery and explained the benefits which included minimizing radiation therapy to the normal brain and potentially reducing long-term side effects from radiation therapy as well as the disadvantages including the inability to potentially prevent further lesions from developing in the brain. I did explain that after the completion of stereotactic radiosurgery we would follow the patient with an MRI of the brain every 2-3 months which would enable us to potentially diagnose new lesions early while they are still asymptomatic and po tentially treatable with stereotactic radiosurgery. The patient would like to undergo stereotactic radiosurgery. The patient will be brought back for CT simulation for treatment planning. I explained the indications, alternatives, benefits, risks and side effects of external beam radiation therapy to the brain. I explain the most common side effects including but not limited to skin erythema, skin break down, hair loss, radiation necrosis, fatigue, short-term memory loss, decreased neurocognitive performance, cerebral edema, hearing loss, damage to cochlea structures, seizures, loss of sensory and or motor function. I explained the treatment planning process and what to expect before during and after treatment. The patient understands and would be willing to consent to treatment. The patient had multiple questions which were answered to her full satisfaction. Thank you for allowing us to participate in the care of this patient. This chart was completed in part utilizing [employer] Voice Recognition software. Attempts were made to minimize the grammatical errors, random word insertions, pronoun errors and incomplete sentences. Any formal questions or concerns about the content, text or information contained within the body of this dictation should be directly addressed to the provider for clarification. Patricia Villeda MD Department of Radiation Oncology [facility] History of Present Illness Attending Physician: Stuart Crawley MD History of Present Illness 07/2017. Status post right middle and lower lobectomy by Dr. Covington. Non- small cell lung carcinoma. [id number]. Pleural fluid cytology suspicious for metastatic carcinoma. 2018. Patient treated with Keytruda which stopped on 12/09/2017 due to colitis. 05/11/2020. CT of chest. IMPRESSION: 1. Status post right lower and right middle lobe resection. Redemonstration of right pleural thickening with a trace right pleural effusion with interval development of gas within the right lower hemithorax which may be pleural or parenchymal in location. The etiology and significance of this finding is unclear. Short-term follow-up chest CT in 2 months is recommended. 2. Otherwise, unchanged appearance of the chest. No thora cic lymphadenopathy. 3. No change in multiple ill-defined bilateral upper lobe pulmonary opacities which favor a chronic inflammatory process. 4. Emphysema. 07/13/2020. CT of chest. IMPRESSION: 1. Cardiomegaly and emphysema with postoperative change from right-sided pulmonary resection. 2. There is no evidence of metastatic disease in the thorax. 3. Scattered subcentimeter pulmonary nodules are pathologically indeterminant and unchanged from prior studies. The appearance favors a chronic infectious/inflammatory etiology. 4. Trace pleural fluid is again seen at the right lung base. Gas within the pleural fluid seen on 05/11/2020 has resolved. 5. Additional findings as above. 09/11/2020. Patient presents to emergency room and admitted to hospital due to strokelike symptoms. 09/11/2020. CT of head. IMPRESSION: Vasogenic edema within the bilateral parietal lobes and left temporal lobe are suspicious for underlying intra-axial lesions, likely intracranial metastatic disease in this patient with history of known lung cancer. There is a 10 mm hemorrhagic focus within the right parietal lobe suggestive of hemorrhagic metastasis. There is resultant gyral expansion and sulcal effacement within these distributions without midline shift, hydrocephalus or herniation. Correlation with follow-up contrast enhanced MRI recommended. 09/12/2020. MRI brain. IMPRESSION: Three enhancing parenchymal lesions, the largest of which is a 1.8 x 1.6 cm left parietal lobe lesion. These lesions have moderate associated vasogenic edema and are consistent with metastases. Allergies Allergy/AdvReac Type Severity Reaction Status Date / Time pembrolizumab [From [employer]] AdvReac Mild Diarrhea Verified 09/11/20 21:05 Home Medications Medication Instructions Recorded Confirmed Type cholecalciferol (vitamin D3) 1,000 unit PO QAM 04/27/18 09/11/20 History omeprazole 20 mg PO QAM 04/27/18 09/11/20 History metoprolol succinate 25 mg PO QAM 08/11/18 09/11/20 History simvastatin 40 mg PO HS 08/11/18 09/11/20 History 3-in-1 Commode #1 ea 02/04/20 09/11/20 Rx Oxygen Home #1 ea 02/04/20 09/11/20 History Wheeled Walker #1 ea 02/04/20 09/11/20 Rx blood-glucose meter #1 ea 02/04/20 09/11/20 History lancets 33 gauge #100 ea 02/04/20 09/11/20 History metronidazole 1 % topical gel 1 appln TOP HS PRN 02/04/20 09/11/20 History denosumab 60 mg/mL subcutaneous 60 mg SUBCUT .COMPLEX ml 04/05/20 09/11/20 History syringe glipizide 5 mg tablet 5 mg PO BID 04/05/20 09/11/20 History infliximab-dyyb 100 mg intravenous See Rx Instructions IV .COMPLEX 04/05/20 09/11/20 History solution lisinopril 30 mg PO QAM 05/01/20 09/11/20 History tramadol 50 - 100 mg PO Q6H PRN #40 tab 05/17/20 09/11/20 Rx amoxicillin 500 mg tablet 2,000 mg PO ONCE #4 tab 08/22/20 09/11/20 Rx levetiracetam 750 mg PO BID 09/11/20 09/11/20 History levothyroxine 25 mcg PO DAILYBB 09/11/20 09/11/20 History Patient History Medical History (Updated 09/11/20 @ 21:28 by Oly Blakely PA-C) Anemia chronic iron deficiency anemia in setting of ulcerative colitis (does receive routine iron infusions), under surveillance of [facility] hematology/GI. Arthritis Depression Diabetes mellitus, type 2 NIDDM High cholesterol Hypertension Hypothyroidism Left knee DJD Nocturnal hypoxia 2L/min NC HS Non-small cell cancer of right lung s/p lower and middle lung lobe resection (2016), no chemo or xrt PVCs (premature ventricular contractions) Seizure disorder Ulcerative colitis on Remicade, follows with [facility] GI Surgical History (Updated 09/11/20 @ 21:28 by Oly Blakely PA-C) History of breast biopsy History of colonoscopy History of lobectomy of lung Right VATS middle and lower lobectomy: 07/11/17: Grade 2 view, MAC#3, BANG History of repair of rotator cuff History of tonsillectomy History of tubal ligation S/P right rotator cuff repair Status post total right knee replacement Family History Sister Family history of diabetes mellitus Other Heart disease Social History Smoking Status: Former smoker Second Hand Exposure: No; Hx Alcohol Use: No Hx Substance Use: No Preferred Language: Occitan Communication Ability: Effective Visual Impairment: No Limitations Medical Record Consultant Required: No Beliefs That Will Affect Care: None marital status: / Current Living Situation: Alone Current Living Situation Comment: [place] Other Information That Helps Us Care for You: No Feels Safe at Home: Yes Safety Concerns: Feels Safe At This Time Assistive Devices: Glasses and Oxygen - at Night Review of Systems Review of Systems: All systems reviewed & are unremarkable except as noted in HPI & below Physical Exam Constitutional: WD/WN, vitals as above well developed and well nourished Eyes: PERRL, conjunctivae normal, anicteric sclerae ENMT: external ear and nose normal, oropharynx normal Neck: trachea midline, no thyromegaly Respiratory: normal respiratory effort, lungs clear to auscultation Cardiovascular: RRR, no murmur, no edema Gastrointestinal (Abdomen): normal bowel sounds, soft, nontender, no hepatosplenomegaly Musculoskeletal: no cyanosis or clubbing, extremities motor strength 5/5 Skin: no rashes, warm and dry Neurologic: patellar DTR's 2+ bilat, sensation intact and PERRL, EOMI, accommodation nl, no face palsy, no dysarthria Psychiatric: A+Ox3, euthymic affect
--- NOTE | 2020-09-12 12:54 | Hospitalist Progress Note ---
Date of Service September 12, 2020 Assessment & Plan (1) Metastatic cancer to brain: Patient is a 80 yr female with H/O Non-small cell cancer of R lung s/p lower and middle lung lobe resection in 2017, history of CVA, seizure disorder, DM II, hypothyroidism, PAD, HTN and other medical problems listed below who presents with strokelike symptoms . She was found to have multiple territorial vasogenic edema within the bilateral cerebral hemispheres is suspicious for intracranial metastasis. Stroke Like Symptoms Secondary to Vasogenic edema/ Hemorrhagic Brain Metastasis H/O Non-small cell lung carcinoma S/P Surgery in 2017 and Keytruda in 2018 which was discontinued due to colitis -CT head:Vasogenic edema within the bilateral parietal lobes and left temporal lobe are suspicious for underlying intra-axial lesions, likely intracranial metastatic disease in this patient with history of known lung cancer. There is a 10 mm hemorrhagic focus within the right parietal lobe suggestive of hemorrhagic metastasis. There is resultant gyral expansion and sulcal effacement within these distributions without midline shift, hydrocephalus or herniation. Correlation with follow-up contrast-enhanced MRI recommended. -MRI Brain:Three enhancing parenchymal lesions, the largest of which is a 1.8 x 1.6 cm left parietal lobe lesion. These lesions have moderate associated vasogenic edema and are consistent with metastases. -Follows with [facility] Oncology -Continue IV Decadron--transition to p.o. as able -Planned for Radiation CT simulation tomorrow -Speech Therapy, PT/OT eval -Aspirin held -Neurology consulted -Appreciate Radiation Oncology Input -May need to consider Palliative care to address goals of care -Continue antiseizure medications with Keppra Hypertensive crisis Likely situational secondary to above Bp variable, Steroids could be contributing as well Continue metoprolol, lisinopril Monitor Seizure disorder stable Continue Keppra 750 mg daily Keppra level is pending H/O CVA/PVD Resume aspirin as able Continue simvastatin COPD Nocturnal hypoxemia on O2 at bedtime As per records Respiratory status at baseline Chronic diarrhea Secondary to colitis from Keytruda as per patient Unchanged DM II Last HbA1C: 8.13 March 2020 Hold p.o. meds while hospitalized Continue insulin therapy Monitor BGs Hypothyroidism Continue levothyroxine Anemia of chronic disease Monitor CBC DVT Px: SCDs for now Code Status Full code Need to readdress goals of care/code status Admission and Anticipated Discharge Date Admission Date: September 11, 2020 Subjective Patient is seen and examined at bedside Facial droop, hand weakness resolved Offers no complaints this morning Plan for radiation CT simulation tomorrow Denies chest pain, dyspnea, dizziness, nausea, abdominal pain, headache, change in vision Tolerating diet well Review of Systems Review of Systems: All systems reviewed & are unremarkable except as noted in HPI & below Physical Exam Physical Exam: Physical Exam: Vitals signs as noted above General Appearance:Thin, frail, Chronic ill appearing, no distress Head: normocephalic, Atraumatic Eyes: normal inspection, EOMI Neck: supple, Trachea midline Respiratory/Chest: Decreased breath sounds, CTA Cardiovascular: S1, S2, No murmur Abdomen/GI:Soft, Non tender, Bowel sounds present Extremities/Musculoskelatal:normal inspection, no edema Neurologic/Psych:AAOX3, grossly no focal neurological deficits Skin: normal color, warm Results & Data Results & Data ([facility]) Vital Signs (Past 12 Hours) Vital Signs Temp Pulse Pulse Resp BP BP Pulse Ox 09/12/20 12:08 36.5 C 66 18 119/63 95 09/12/20 08:02 37.0 C 77 18 125/73 95 09/12/20 07:00 64 09/12/20 03:55 36.8 C 71 19 119/63 94 09/12/20 01:53 36.9 C 62 18 183/70 H 99 09/12/20 01:29 56 L 18 145/65 H 99 09/12/20 01:00 59 L 19 144/56 H 99 09/12/20 00:45 58 L 13 100 09/12/20 00:30 0 L 6 L 130/75 99 Laboratory Results Short CBC 09/11/20 09/12/20 Range/Units 19:28 06:55 WBC 6.28 6.05 (4.8-10.8) K/uL Hgb 11.5 L 11.0 L (12.0-16.0) g/dL Hct 35.2 L 33.4 L (37-47) % Plt Count 356 308 (130-400) K/uL BMP 09/11/20 09/12/20 19:28 06:55 Sodium 141 140 Potassium 4.0 3.9 Chloride 109 H 109 H Carbon Dioxide 25 23 BUN 31 H 31 H Creatinine 1.14 1.03 Glucose 237 H 196 H Calcium 8.6 9.7 Cardiac Enzymes 09/11/20 Range/Units 19:28 Troponin I < 0.015 (0-0.045) ng/ml Liver Function 09/11/20 Range/Units 19:28 Total Bilirubin 0.1 L (0.2-1) mg/dl AST 24 (15-37) U/L ALT 19 (12-78) U/L Alkaline Phosphatase 108 (45-117) U/L Albumin 3.2 L (3.4-5.0) gm/dl
--- NOTE | 2020-09-12 14:21 | Electrocardiogram Report ---
Test Reason : Blood Pressure : / mmHG Vent. Rate : 099 BPM Atrial Rate : 099 BPM P-R Int : 178 ms QRS Dur : 094 ms QT Int : 384 ms P-R-T Axes : 064 089 -08 degrees QTc Int : 492 ms Normal sinus rhythm Prolonged QT Abnormal ECG When compared with ECG of 24-APR-2020 10:32, Vent. rate has increased BY 36 BPM T wave inversion now evident in Inferior leads T wave inversion now evident in Lateral leads QT has lengthened Confirmed by Andres Ruiz ([id number]) on 09/12/2020 2:20:49 PM Referred By: REFERRED SELF Confirmed By:Andres Ruiz
--- NOTE | 2020-09-12 16:05 | Neurology Consultation ---
Date of Consultation September 12, 2020 Assessment & Plan (1) Seizure disorder: 1. MRI brain with met disease 2. continue Keppra 750 mg q 12 hours - may need increased if seizure break through- however steroids should help with edema 3. no driving for 6 months from last seizure date, no heights, no bathing or swimming alone 4. fall and seizure precautions 5. will see in neurology 4-6 weeks after discharge Fredajay Chowdhury TINO Present on Admission?: Yes (2) Metastatic cancer to brain: 1. IV steroids will defer to onc/rad for adjustments and dosing 2. DM sliding scale will need adjusted for steroids Present on Admission?: Yes Supervising Physician Co-Signing Physician Notes I have seen and discussed above patient with Dr Faisal Corado, neurology I have interviewed and examined this unfortunate patient with Freda Chowdhury PA-C and she is known to our neurology group for an idiopathic seizure disorder first diagnosed in 2016 and thoroughly evaluated with multiple imaging studies over the years particularly in light of her known underlying diagnosis of pulmonary carcinoma non-small cell type She has been on Keppra at the current dose and quite stable having no seizures now for several years She presents with progressive clumsiness of the right hand and was found to have multiple MOTOR BOSS metastases undoubtedly a pulmonary primary with the largest involving the left hemisphere and clearly responsible for her deficits which in addition to the clumsiness of the right hand and the slight drift on examination, include word finding hesitancy and low-grade aphasia Currently she is being seen by radiation oncology and several options are being offered, she is on Decadron and appropriate doses, we are going to continue the Keppra, and at this point I will think neurology is a lot more to offer as the management is going to clearly fall to radiation oncology and her general oncologist and we see her anyway on a regular basis for seizures so we will simply follow-up as previously scheduled or perhaps slightly earlier than usual in light of the change in her condition and the slightly higher risk for increased seizure activity now with the presence of documented structural disease. She may in fact require an upward dosage adjustment of the Keppra depending on how she does clinically Neurology will sign off at this point but will be happy to reevaluate her should breakthrough seizure activity occur here in the hospital Faisal Corado MD History of Present Illness Reason for Consultation: brain mets Requesting Physician: Stuart Crawley MD Attending Physician: Stuart Crawley MD History of Present Illness Fatoumata is a 80 year old female with PMH- non-small cell cancer of R lung s/p lower and middle lung lobe resection in 2016, history of CVA, seizure disorder, UC, DM 2, hypothyroidism, PAD, HTN, nocturnal hypoxia on 2 L NC hs. She presented with strokelike symptoms starting this evening. She was playing solitaire at home when she can no longer shuffle with left hand. This was an acute onset and prompted her to call EMS. EMS reported left facial droop and visual changes. She has lung cancer and follows with Dr. Villeda but has not been on chemotherapy since early December 2017. Had increasing symptoms of colitis while on Keytruda and elected to discontinue. History of previous stroke and is on baby aspirin. She was seen by neurology in 11/2018 for a new onset seizure. she had an MRI with no radiographic lesions. She had additional imaging of her brain that showed no lesions. Currently feeling fatigued and occasionally dizzy. Chronic diarrhea in setting of UC. denies vision change, headache, current SOB, abdominal pain, N, V. Allergies Allergy/AdvReac Type Severity Reaction Status Date / Time pembrolizumab [From Keytruda] AdvReac Mild Diarrhea Verified 09/11/20 21:05 Home Medications Medication Instructions Recorded Confirmed Type cholecalciferol (vitamin D3) 1,000 unit PO QAM 04/27/18 09/11/20 History omeprazole 20 mg PO QAM 04/27/18 09/11/20 History metoprolol succinate 25 mg PO QAM 08/11/18 09/11/20 History simvastatin 40 mg PO HS 08/11/18 09/11/20 History 3-in-1 Commode #1 ea 02/04/20 09/11/20 Rx Oxygen Home #1 ea 02/04/20 09/11/20 History Wheeled Walker #1 ea 02/04/20 09/11/20 Rx blood-glucose meter #1 ea 02/04/20 09/11/20 History lancets 33 gauge #100 ea 02/04/20 09/11/20 History metronidazole 1 % topical gel 1 appln TOP HS PRN 02/04/20 09/11/20 History denosumab 60 mg/mL subcutaneous 60 mg SUBCUT .COMPLEX ml 04/05/20 09/11/20 History syringe glipizide 5 mg tablet 5 mg PO BID 04/05/20 09/11/20 History infliximab-dyyb 100 mg intravenous See Rx Instructions IV .COMPLEX 04/05/20 09/11/20 History solution lisinopril 30 mg PO QAM 05/01/20 09/11/20 History tramadol 50 - 100 mg PO Q6H PRN #40 tab 05/17/20 09/11/20 Rx amoxicillin 500 mg tablet 2,000 mg PO ONCE #4 tab 08/22/20 09/11/20 Rx levetiracetam 750 mg PO BID 09/11/20 09/11/20 History levothyroxine 25 mcg PO DAILYBB 09/11/20 09/11/20 History Patient History Medical History (Updated 09/11/20 @ 21:28 by Oly Blakely PA-C) Anemia chronic iron deficiency anemia in setting of ulcerative colitis (does receive routine iron infusions), under surveillance of [facility] hematology/GI. Arthritis Depression Diabetes mellitus, type 2 NIDDM High cholesterol Hypertension Hypothyroidism Left knee DJD Nocturnal hypoxia 2L/min NC HS Non-small cell cancer of right lung s/p lower and middle lung lobe resection (2017), no chemo or xrt PVCs (premature ventricular contractions) Seizure disorder Ulcerative colitis on Remicade, follows with [facility] GI Surgical History (Updated 09/11/20 @ 21:28 by Oly Blakely PA-C) History of breast biopsy History of colonoscopy History of lobectomy of lung Right VATS middle and lower lobectomy: 07/11/17: Grade 2 view, MAC#3, BANG History of repair of rotator cuff History of tonsillectomy History of tubal ligation S/P right rotator cuff repair Status post total right knee replacement Family History Sister Family history of diabetes mellitus Other Heart disease Social History Smoking Status: Former smoker Second Hand Exposure: No; Hx Alcohol Use: No Hx Substance Use: No Preferred Language: Mongolian Communication Ability: Effective Visual Impairment: No Limitations Local [employer] Required: No Beliefs That Will Affect Care: None marital status: / Current Living Situation: Alone Current Living Situation Comment: [facility] Other Information That Helps Us Care for You: No Feels Safe at Home: Yes Safety Concerns: Feels Safe At This Time Assistive Devices: Glasses and Oxygen - at Night Review of Systems Review of Systems: All systems reviewed & are unremarkable except as noted in HPI & below and All systems reviewed & are unremarkable except as noted in Subjective Physical Exam Physical Exam: Physical Exam: Constitutional: appearance nourished Ears, Nose, Mouth and Throat: mucous membranes moist, no injection and skin normal, eyes normal Cardiovascular: normal S-1 and S-2 and regular rate and rhythm Respiratory: course breath sounds Musculoskeletal: no peripheral edema and good distal pulses Skin: no stigmata of neurocutaneous disease noted and normal and intact Eyes: extraocular muscles intact (EOMI) and pupils equal, round and reactive to light (PERRL) NEUROLOGIC EXAMINATION: Mental status: Alert and interactive Oriented to full date and location Oriented to person Speech aphasic with word finding Cranial Nerves slight flattening left nasolabial fold Reflexes: Deep tendon reflexes were symmetrical and graded 2/5. down going toes Sensory: intact to light cool touch Coordination: finger to nose Gait/Stance: Posture lying in bed Motor: Negative for pronator drift of out stretched arms with eyes closed. Strength: biceps triceps hand research associate policy 5/5, hip flex plantar flex ext 5/5 bilaterally Results & Data ([facility]) Vital Signs (Past 12 Hours) Vital Signs Temp Pulse Pulse Resp BP Pulse Ox 09/12/20 15:35 36.7 C 69 16 158/63 H 91 09/12/20 15:00 72 09/12/20 12:08 36.5 C 66 18 119/63 95 09/12/20 08:02 37.0 C 77 18 125/73 95 09/12/20 07:00 64 Laboratory Results Abnormal lab results 09/11/20 09/11/20 09/11/20 Range/Units 19:28 19:28 19:28 RBC 4.03 L (4.2-5.4) M/uL Hgb 11.5 L (12.0-16.0) g/dL Hct 35.2 L (37-47) % RDW Std Deviation 46.4 H (36.4-46.3) fL MPV 11.1 H (7.4-10.4) fL Lymph # (Auto) (1.2-3.4) K/uL Eos # (Auto) 0.91 H (0-0.5) K/uL Chloride 109 H (98-107) mmol/L BUN 31 H (7-18) mg/dl BUN/Creatinine Ratio 27.5 H (10-20) Glucose 237 H (70-99) mg/dl POC Glucose (70-99) mg/dl Hemoglobin A1c 8.1 H (4.5-5.6) % Total Bilirubin 0.1 L (0.2-1) mg/dl Albumin 3.2 L (3.4-5.0) gm/dl Albumin/Globulin Ratio 0.8 L (0.9-2) 09/11/20 09/11/20 09/12/20 Range/Units 19:31 22:23 01:59 RBC (4.2-5.4) M/uL Hgb (12.0-16.0) g/dL Hct (37-47) % RDW Std Deviation (36.4-46.3) fL MPV (7.4-10.4) fL Lymph # (Auto) (1.2-3.4) K/uL Eos # (Auto) (0-0.5) K/uL Chloride (98-107) mmol/L BUN (7-18) mg/dl BUN/Creatinine Ratio (10-20) Glucose (70-99) mg/dl POC Glucose 242 H 206 H 276 H (70-99) mg/dl Hemoglobin A1c (4.5-5.6) % Total Bilirubin (0.2-1) mg/dl Albumin (3.4-5.0) gm/dl Albumin/Globulin Ratio (0.9-2) 09/12/20 09/12/20 09/12/20 Range/Units 06:55 06:55 07:29 RBC 3.86 L (4.2-5.4) M/uL Hgb 11.0 L (12.0-16.0) g/dL Hct 33.4 L (37-47) % RDW Std Deviation (36.4-46.3) fL MPV 10.5 H (7.4-10.4) fL Lymph # (Auto) 0.78 L (1.2-3.4) K/uL Eos # (Auto) (0-0.5) K/uL Chloride 109 H (98-107) mmol/L BUN 31 H (7-18) mg/dl BUN/Creatinine Ratio 30.1 H (10-20) Glucose 196 H (70-99) mg/dl POC Glucose 192 H (70-99) mg/dl Hemoglobin A1c (4.5-5.6) % Total Bilirubin (0.2-1) mg/dl Albumin (3.4-5.0) gm/dl Albumin/Globulin Ratio (0.9-2) 09/12/20 Range/Units 11:21 RBC (4.2-5.4) M/uL Hgb (12.0-16.0) g/dL Hct (37-47) % RDW Std Deviation (36.4-46.3) fL MPV (7.4-10.4) fL Lymph # (Auto) (1.2-3.4) K/uL Eos # (Auto) (0-0.5) K/uL Chloride (98-107) mmol/L BUN (7-18) mg/dl BUN/Creatinine Ratio (10-20) Glucose (70-99) mg/dl POC Glucose 198 H (70-99) mg/dl Hemoglobin A1c (4.5-5.6) % Total Bilirubin (0.2-1) mg/dl Albumin (3.4-5.0) gm/dl Albumin/Globulin Ratio (0.9-2) Diagnostic Findings MRI brain-Three enhancing parenchymal lesions, the largest of which is a 1.8 x 1.6 cm left parietal lobe lesion. These lesions have moderate associated vasogenic edema and are consistent with metastases. CTA -Multiple territorial vasogenic edema within the bilateral cerebral hemispheres is suspicious for intracranial metastasis. Moderate to severe mixed plaque of the bilateral carotid bulbs redemonstrated resulting in 60% luminal narrowing of the proximal cervical segment left ICA and approximately 50% stenosis on the right. These findings are unchanged from comparison. Otherwise unremarkable CTA of the head and neck. CXR-Small patchy density at the base of the left lower lobe. This could be due to atelectasis or developing pneumonia. Aspiration not excluded. Stable postoperative changes within the right hemithorax.
[2020-09-12] MEDS ORDERED: PHARMACY GLYCEMIC MGMT CONSULT PRN (16:41)
[2020-09-12] MEDS ORDERED: INSULIN GLARGINE SOLOSTAR 100 UNITS/ML 3 ML PEN SC ONE (16:45)
[2020-09-12] MEDS: SIMVASTATIN 40 MG TAB PO SCH (21:26)
[2020-09-13] MEDS: DEXAMETHASONE SOD PHOSPHATE 4 MG in SYRINGE 0 ML IV SCH ×3 (00:12→12:06)
[2020-09-13] MEDS: INSULIN ASPART 100 UNITS/ML 3 ML PEN SC SCH ×6 (00:27→20:59)
[2020-09-13] MEDS: LEVOTHYROXINE SODIUM 25 MCG TABLET PO SCH (05:48)
[2020-09-13 07:16] LABS: Hematocrit (blood only) 30.5 % (37-47); Mean Corpuscular Hemoglobin 28.2 pg (25-34); Mean Corpuscular Hgb Conc 32.8 g/dL (32-36); Mean Corpuscular Volume 85.9 fL (80-100); Mean Platelet Volume 10.8 fL (7.4-10.4); Platelet Count 305 K/uL (130-400); RDW Coefficient of Variation 14.6 % (11.5-14.5); RDW Standard Deviation 45.6 fL (36.4-46.3); Red Blood Count 3.55 M/uL (4.2-5.4); White Blood Count 13.32 K/uL (4.8-10.8)
[2020-09-13 07:43] LABS: BUN Creatinine Ratio 32.2 (10-20); Calcium 9.3 mg/dl (8.5-10.1); Est GFR (African American) 62.5; Est GFR (Non-African American) 53.9; Magnesium 1.9 mg/dl (1.8-2.4); Potassium 3.9 mmol/L (3.5-5.1)
[2020-09-13] MEDS ORDERED: INSULIN GLARGINE SOLOSTAR 100 UNITS/ML 3 ML PEN SC SCH ×2 (09:00→21:00)
[2020-09-13] MEDS: PANTOprazole 40 MG TAB PO SCH (09:27)
[2020-09-13] MEDS: METOPROLOL SUCC 25MG EXT REL TAB PO SCH (09:27)
[2020-09-13] MEDS: lisinopril 10 MG TAB PO SCH (09:27)
[2020-09-13] MEDS: levETIRAcetam 250 MG TAB PO SCH ×2 (09:27→20:11)
--- NOTE | 2020-09-13 10:39 | Pharmacy Report ---
Pharmacy Glycemic Short Note 2 - Date of Service September 13, 2020 - Glycemic Short BSG Results (Last 24 hours): 09/12/20 09/12/20 09/12/20 11:21 16:19 16:21 Glucose POC Glucose 198 H 307 H* 308 H* 09/12/20 09/13/20 09/13/20 20:06 00:10 05:20 Glucose POC Glucose 249 H 200 H 245 H 09/13/20 09/13/20 06:19 07:26 Glucose 234 H POC Glucose 236 H OUTPATIENT ANTIDIABETIC REGIMEN: * Glipizide 5 mg PO BID * A1c = 8.1% (09/11/20) RISK FACTORS FOR INSULIN RESISTANCE: * Steroids - Dexamethasone 4 mg IV every 6 hours ASSESSMENT: * 80 yo F admitted on 09/11/20 secondary to stroke-like symptoms. Has a history of Type 2 Diabetes Mellitus on Glipizide at home. Pharmacy was consulted on the evening of 09/12/20 secondary to hyperglycemia which can likely be explained by steroids. * BSGs yesterday were uncontrolled: [id number] mg/dL * Patient received 61 units of insulin total (30 units basal + 31 units bolus) * Fasting BSG this AM was still uncontrolled at 236 mg/dL * Will increase basal insulin dose today by almost 50% * Will tighten correctional/prandial insulin parameters to account for postprandial steroid-induced hyperglycemia PLAN FOR INPATIENT GLYCEMIC CONTROL: * Hold outpatient oral diabetes medications * Basal insulin - increased * Lantus 25 units SQ x 1 * Lantus 25 - 35 units SQ HS depending on BSG (see eMAR for further details) * Bolus insulin - tightened * NovoLog per scale ACHS or Q6hrs while NPO * Goal Range: Low 110 mg/dL - High 140 mg/dL * Correction Factor: 15 mg/dL/unit * Nutritional / Prandial insulin per carb ratio of 1 unit per 5 grams CHO consumed PLAN FOR DISCHARGE: * TBD
--- NOTE | 2020-09-13 12:01 | Hospitalist Progress Note ---
Date of Service September 13, 2020 Assessment & Plan (1) Metastatic cancer to brain: Patient is a 80 yr female with H/O Non-small cell cancer of R lung s/p lower and middle lung lobe resection in 2017, history of CVA, seizure disorder, DM II, hypothyroidism, PAD, HTN and other medical problems listed below who presents with strokelike symptoms . She was found to have multiple territorial vasogenic edema within the bilateral cerebral hemispheres is suspicious for intracranial metastasis. Stroke Like Symptoms Secondary to Vasogenic edema/ Hemorrhagic Brain Metastasis H/O Non-small cell lung carcinoma S/P Surgery in 2017 and Keytruda in 2018 which was discontinued due to colitis -CT head:Vasogenic edema within the bilateral parietal lobes and left temporal lobe are suspicious for underlying intra-axial lesions, likely intracranial metastatic disease in this patient with history of known lung cancer. There is a 10 mm hemorrhagic focus within the right parietal lobe suggestive of hemorrhagic metastasis. There is resultant gyral expansion and sulcal effacement within these distributions without midline shift, hydrocephalus or herniation. Correlation with follow-up contrast-enhanced MRI recommended. -MRI Brain:Three enhancing parenchymal lesions, the largest of which is a 1.8 x 1.6 cm left parietal lobe lesion. These lesions have moderate associated vasogenic edema and are consistent with metastases. -Follows with [facility] On[facility] -Continue IV Decadron--transition to p.o. as able -Planned for Radiation CT simulation tomorrow -Speech Therapy, PT/OT eval -Aspirin held -Neurology on case -Appreciate Radiation Oncology Input -May need to consider Palliative care to address goals of care -Continue antiseizure medications with Keppra Hypertensive crisis Likely situational secondary to above Bp variable, Steroids could be contributing as well Continue metoprolol, lisinopril Monitor Seizure disorder stable Continue Keppra 750 mg daily Keppra level is pending H/O CVA/PVD Resume aspirin as able Continue simvastatin COPD Nocturnal hypoxemia on O2 at bedtime As per records Respiratory status at baseline Chronic diarrhea Secondary to colitis from Keytruda as per patient Unchanged DM II Last HbA1C: 8.13 March 2020 Hold p.o. meds while hospitalized Restart Glipizide at 10 BID and stop Lantus Currently on Decadron, Reduced to 4 mg PO q8 ISS Monitor BGs Hypothyroidism Continue levothyroxine Anemia of chronic disease Monitor CBC DVT Px: SCDs for now Code Status Full code Labs checked, DC when OK c Rad Onc ROS-No Headache, No Visual Changes, No Nausea, No Vomiting, No Fever, No Chills, No Neck Pain or Stiffness, No Chest Pain, No Palpitations, No SOB, No ORTEGA, No Cough, No Sputum, No Wheezing, No Abdominal Pain, No Diarrhea, No Hematemesis, No Hemoptysis, No Unexpected Weight Loss, No Flank pain, No Melena, No Hematochezia, No Frequency, No Urgency, No Burning, No Hematuria, No Rashes, No Diaphoresis. Appetite is Normal Physical Exam Gen-AAO x 3, Thin, frail, Chronic ill appearing, Afebrile Head-NCAT, EOMI, PERRLA, Anicteric Sclera, No Posterior Pharyngeal Erythema Neck-Supple, No JVD, No Thyromegaly, No Masses, No LAD, No Bruits Lungs-Diminished Bilaterally, No Rales, No Rhonchi, No Wheezing, No Crepitus Chest-No S4, +S1, +S2, No S3, No Murmurs, No Rubs, No Gallops, No Ectopy Abdomen-Soft, Bowel Sounds Present, Non Tender, Non Distended, No Hepatomegaly, No Splenomegaly, No Palpable Masses, No Rebound, No Rigidity, No Guarding Musculoskeletal-Full Range of Motion Bilaterally, No CVAT Extremities-No Cyanosis, No Clubbing, No Edema Nuero-Cranial Nerves II-XII grossly intact, Motor WNL, DTRs WNL, Strength WNL, Non Focal Psych-Normal Mood Admission and Anticipated Discharge Date Admission Date: September 11, 2020 Results & Data Results & Data ([facility]) Vital Signs (Past 12 Hours) Vital Signs Temp Pulse Pulse Resp BP Pulse Ox 09/13/20 11:07 36.5 C 53 L 18 172/67 H 98 09/13/20 07:26 36.9 C 61 18 161/70 H 96 09/13/20 07:00 60 09/13/20 04:53 36.7 C 60 18 147/67 H 97 09/13/20 00:06 36.6 C 64 18 139/64 97
[2020-09-13] MEDS ORDERED: glipiZIDE 5 MG TAB PO ONE (15:00)
[2020-09-13] MEDS: dexAMETHasone 4 MG TAB PO SCH ×2 (18:15→23:55)
[2020-09-13] MEDS: SIMVASTATIN 40 MG TAB PO SCH (20:11)
[2020-09-13] MEDS ORDERED: dexAMETHasone 4 MG TAB PO SCH (22:00)
[2020-09-14] MEDS: LEVOTHYROXINE SODIUM 25 MCG TABLET PO SCH (06:24)
[2020-09-14] MEDS: dexAMETHasone 4 MG TAB PO SCH (06:24)
[2020-09-14 06:58] LABS: Hematocrit (blood only) 33.5 % (37-47); Hemoglobin 10.8 g/dL (12.0-16.0); Mean Corpuscular Hemoglobin 27.7 pg (25-34); Mean Corpuscular Hgb Conc 32.2 g/dL (32-36); Mean Corpuscular Volume 85.9 fL (80-100); Mean Platelet Volume 10.6 fL (7.4-10.4); Platelet Count 317 K/uL (130-400); RDW Coefficient of Variation 14.6 % (11.5-14.5); White Blood Count 11.96 K/uL (4.8-10.8)
[2020-09-14 07:38] LABS: BUN Creatinine Ratio 29.6 (10-20); Calcium 9.3 mg/dl (8.5-10.1); Creatinine Clr Calc Pharmacy 31.8 ml/min; Est GFR (African American) 47.3; Est GFR (Non-African American) 40.8; Potassium 4.6 mmol/L (3.5-5.1)
[2020-09-14] MEDS: INSULIN ASPART 100 UNITS/ML 3 ML PEN SC SCH (07:48)
[2020-09-14] MEDS ORDERED: glipiZIDE 5 MG TAB PO SCH ×3 (08:30→16:30)
[2020-09-14] MEDS: levETIRAcetam 250 MG TAB PO SCH (08:43)
[2020-09-14] MEDS: PANTOprazole 40 MG TAB PO SCH (08:43)
[2020-09-14] MEDS: lisinopril 10 MG TAB PO SCH (08:44)
[2020-09-14] MEDS: METOPROLOL SUCC 25MG EXT REL TAB PO SCH (08:44)
--- NOTE | 2020-09-14 08:46 | Pharmacy Report ---
Pharmacy Glycemic Short Note 2 - Date of Service September 14, 2020 - Glycemic Short BSG Results (Last 24 hours): 09/13/20 09/13/20 09/13/20 11:23 11:23 16:14 Glucose POC Glucose 337 H* 379 H* 67 L* 09/13/20 09/13/20 09/14/20 16:16 20:18 06:25 Glucose 247 H POC Glucose 75 265 H 09/14/20 07:27 Glucose POC Glucose 236 H OUTPATIENT ANTIDIABETIC REGIMEN: * Glipizide 5 mg PO BID * A1c = 8.1% (09/11/20) RISK FACTORS FOR INSULIN RESISTANCE: * Steroids - Dexamethasone 4 mg IV every 6 hours ASSESSMENT: 09/14: * BSGs yesterday were uncontrolled: [phone] mg/dL * Patient received 67 units of insulin total, 25 units basal and 42 units bolus * Patient had a low BSG at dinner last night of 67 mg/dL with a recheck of 75 mg/dL - did not require treatment * This was likely due to Novolog stacking as patient's AM dose was not given until 1015 and then lunch dose given at 1215 * Spoke with Attending yesterday and plan is to discharge patient home today. It was decided to hold evening Lantus last night and try glipizide 10 mg PO to see effect this would have on BSG. This dose of glipizide had no effect on BSG as HS was 265 mg/dL and AM fasting this morning was 236 mg/dL. I strongly advise against patient receiving glipizide monotherapy while on steroids. * With patient being discharged on Dexamethasone for the foreseeable future, I recommend that patient be discharged on some basal insulin while she is taking dexamethasone. * She received a total of 67 units of insulin yesterday and her blood sugars were still significantly elevated indicating that she is very sensitive to steroid-induced hyperglycemia. 09/13: * 80 yo F admitted on 09/11/20 secondary to stroke-like symptoms. Has a history of Type 2 Diabetes Mellitus on Glipizide at home. Pharmacy was consulted on the evening of 09/12/20 secondary to hyperglycemia which can likely be explained by steroids. * BSGs yesterday were uncontrolled: [phone] mg/dL * Patient received 61 units of insulin total (30 units basal + 31 units bolus) * Fasting BSG this AM was still uncontrolled at 236 mg/dL * Will increase basal insulin dose today by almost 50% * Will tighten correctional/prandial insulin parameters to account for postprandial steroid-induced hyperglycemia PLAN FOR INPATIENT GLYCEMIC CONTROL: * Glipizide 10 mg PO qAM + 5 mg PO qPM * Basal insulin - holding * Bolus insulin - no change * NovoLog per scale ACHS or Q6hrs while NPO * Goal Range: Low 110 mg/dL - High 140 mg/dL * Correction Factor: 15 mg/dL/unit * Nutritional / Prandial insulin per carb ratio of 1 unit per 5 grams CHO consumed PLAN FOR DISCHARGE: * HbA1c = 8.1% which is slightly above the goal of < 8% given this patient's age and comorbidities. Patient will be discharged on Dexamethasone 4 mg PO every 6 hours as an outpatient. * Recommend increasing Glipizide to 10 mg PO BIDM while on Dexamethasone. * Recommend starting Lantus 30 units SC qAM upon discharge while patient is only Dexamethasone. * Patient should SMBG at least 2 x per day ([facility]). * Patient should increase Lantus dose by 5 units every morning if BSG is > 180 mg/dL until fasting blood sugar is less than 180 mg/dL then continue that dose. * She should follow up closely with her outpatient provider while on insulin and dexamethasone for further dose adjustments.
--- NOTE | 2020-09-14 09:09 | Discharge Summary ---
Date of Service September 14, 2020 Admission HPI Per Admitting Provider This is a 80yo F with a PMH of non-small cell cancer of R lung s/p lower and middle lung lobe resection in 2017, history of CVA, seizure disorder, ulcerative colitis, DM II, hypothyroidism, PAD, HTN, nocturnal hypoxia on 2 L NC HS and other medical problems listed below who presents with strokelike symptoms starting this evening. Patient was playing solitaire at home when she can no longer shuffle with left hand. This is an acute onset and prompted patient to call EMS. Denies any slurred speech, visual changes or ambulatory dysfunction at this time. Was found by EMS to have left facial droop and visual changes. Was arrived at [facility], stroke alert was called. Patient has lung cancer and follows with Dr. Villeda but has not been on chemotherapy since early December 2017. Had increasing symptoms of colitis while on Keytruda and elected to discontinue. History of previous stroke and is on baby aspirin. Takes all medications as scheduled. Currently feeling fatigued and occasionally dizzy. Denies any fever, chills, headache, chest pain, SOB, nausea, vomiting, abdominal pain or dysuria. Chronic diarrhea in setting of UC. Denies any weakness or sensory changes of extremities that she is aware of. In ED, patient noted to be afebrile and hemodynamically stable. Hypertensive at 191/71. CT head with vasogenic edema within the bilateral parietal lobes and left temporal lobe are suspicious for underlying intra-axial lesions, likely intracranial metastatic disease in this patient with history of known lung cancer. There is a 10 mm hemorrhagic focus within the right parietal lobe suggestive of hemorrhagic metastasis. Not a TPA candidate due to the hemorrhage and metastatic disease in the brain found on CT. Dr. Gann discussed with [place] [facility] who recommended 6 mg of Decadron now and 4 mg Q6H. Relative systolic blood pressure cap of approximately 160 systolic was recommended. Admission Exam Per Admitting Provider General Appearance: WD/WN, vitals as above, NAD, sitting up in bed, conversing easily Head: normocephalic, atraumatic Eyes: normal inspection, PERRL, conjunctivae normal, anicteric sclerae ENT: external ear and nose normal, oropharynx normal Neck: normal visual inspection, trachea midline, no thyromegaly Respiratory: normal respiratory effort, lungs clear to auscultation, no wheeze, rales, rhonchi. No accessory muscle use Cardiovascular: regular rate, rhythm, no murmur, normal peripheral pulses, no BLE edema. Vessels: no JVD Chest: normal inspection of chest Abdomen/GI: normal bowel sounds, soft, nontender, no hepatosplenomegaly Extremities/Musculoskeletal: no cyanosis or clubbing Neurologic: PERRL, EOMI, accommodation nl, + L facial droop, no dysarthria, CN's II-XI intact bilaterally and moves all extremities. No sensation to touch in LUE or LLE. LUE and LLE with 4/5 MAHAD. Psychiatric: A+Ox3, depressed mood Skin: no rashes, normal color, warm/dry Principal Diagnosis Metastatic cancer to brain: Stroke Like Symptoms Vasogenic edema/ Hemorrhagic Brain Metastasis H/O Non-small cell lung carcinoma Hypertensive crisis Seizure disorder H/O CVA/PVD COPD Chronic diarrhea DM II Hypothyroidism Anemia of chronic disease Discharge Exam See below Discharge Data Allergies Allergy/AdvReac Type Severity Reaction Status Date / Time pembrolizumab [From Keytruda] AdvReac Mild Diarrhea Verified 09/11/20 21:05 Consultations 09/11/20 20:54 ED Decision to Admit Stat 09/12/20 01:52 Consult Neurology Routine Consult Radiation Oncology Routine Ordered Studies 09/11/20 18:53 CT angio head w con Stat CT angio neck with con Stat CT head/brain wo con Stat 09/12/20 01:52 MR brain wo/w con Routine 09/13/20 08:01 CT guide rad therapy head Routine Current Diagnoses Malignant neoplasm of unspecified part of right bronchus or lung (09/11/20) Secondary malignant neoplasm of brain (09/11/20) Type 2 diabetes mellitus without complications (09/11/20) Epilepsy, unspecified, not intractable, without status epilepticus (09/11/20) Idiopathic sleep related nonobstructive alveolar hypoventilation (09/11/20) Essential (primary) hypertension (09/11/20) Nontraumatic intracerebral hemorrhage in hemisphere, subcortical (09/11/20) Anesthesia of skin (09/11/20) Facial weakness (09/11/20) Allergies pembrolizumab [From Keytruda] Adverse Reaction (Mild, Verified 09/11/20 21:05) Diarrhea Height/Weight/Isolation Height 5 ft 4 in Weight 57 kg Chemistry 09/13/20 09/14/20 06:19 06:25 Sodium 140 137 Potassium 3.9 4.6 D Chloride 107 105 Carbon Dioxide 26 27 Anion Gap 7.0 5.0 BUN 32 H 37 H Creatinine 1.00 1.26 H Glucose 234 H 247 H Hospital Course (1) Metastatic cancer to brain: Patient is a 80 yr female with H/O Non-small cell cancer of R lung s/p lower and middle lung lobe resection in 2017, history of CVA, seizure disorder, DM II, hypothyroidism, PAD, HTN and other medical problems listed below who presents with strokelike symptoms . She was found to have multiple territorial vasogenic edema within the bilateral cerebral hemispheres is suspicious for intracranial metastasis. Stroke Like Symptoms Secondary to Vasogenic edema/ Hemorrhagic Brain Metastasis H/O Non-small cell lung carcinoma S/P Surgery in 2017 and Keytruda in 2018 which was discontinued due to colitis -CT head:Vasogenic edema within the bilateral parietal lobes and left temporal lobe are suspicious for underlying intra-axial lesions, likely intracranial metastatic disease in this patient with history of known lung cancer. There is a 10 mm hemorrhagic focus within the right parietal lobe suggestive of hemorrhagic metastasis. There is resultant gyral expansion and sulcal effacement within these distributions without midline shift, hydrocephalus or herniation. Correlation with follow-up contrast-enhanced MRI recommended. -MRI Brain:Three enhancing parenchymal lesions, the largest of which is a 1.8 x 1.6 cm left parietal lobe lesion. These lesions have moderate associated vasogenic edema and are consistent with metastases. -Follows with [facility] -Continue IV Decadron--transition to p.o. as able -Planned for Radiation CT simulation tomorrow -Speech Therapy, PT/OT eval -Aspirin held -Neurology on case -Appreciate Radiation Oncology Input -May need to consider Palliative care to address goals of care -Continue antiseizure medications with Keppra Hypertensive crisis Likely situational secondary to above Bp variable, Steroids could be contributing as well Continue metoprolol, lisinopril Monitor Seizure disorder stable Continue Keppra 750 mg daily Keppra level is pending H/O CVA/PVD Resume aspirin as able Continue simvastatin COPD Nocturnal hypoxemia on O2 at bedtime As per records Respiratory status at baseline Chronic diarrhea Secondary to colitis from Keytruda as per patient Unchanged DM II Last HbA1C: 8.13 March 2020 Hold p.o. meds while hospitalized Restart Glipizide at 10 BID and stop Lantus Currently on Decadron, Reduced to 4 mg PO q8 ISS Monitor BGs Hypothyroidism Continue levothyroxine Anemia of chronic disease Monitor CBC DVT Px: SCDs for now Code Status Full code Labs checked, DC today on Glipizide 10 mg QAM, 5 mg QPM ROS-No Headache, No Visual Changes, No Nausea, No Vomiting, No Fever, No Chills, No Neck Pain or Stiffness, No Chest Pain, No Palpitations, No SOB, No ORTEGA, No Cough, No Sputum, No Wheezing, No Abdominal Pain, No Diarrhea, No Hematemesis, No Hemoptysis, No Unexpected Weight Loss, No Flank pain, No Melena, No Hematochezia, No Frequency, No Urgency, No Burning, No Hematuria, No Rashes, No Diaphoresis. Appetite is Normal Physical Exam Gen-AAO x 3, Thin, frail, Chronic ill appearing, Afebrile Head-NCAT, EOMI, PERRLA, Anicteric Sclera, No Posterior Pharyngeal Erythema Neck-Supple, No JVD, No Thyromegaly, No Masses, No LAD, No Bruits Lungs-Diminished Bilaterally, No Rales, No Rhonchi, No Wheezing, No Crepitus Chest-No S4, +S1, +S2, No S3, No Murmurs, No Rubs, No Gallops, No Ectopy Abdomen-Soft, Bowel Sounds Present, Non Tender, Non Distended, No Hepatomegaly, No Splenomegaly, No Palpable Masses, No Rebound, No Rigidity, No Guarding Musculoskeletal-Full Range of Motion Bilaterally, No CVAT Extremities-No Cyanosis, No Clubbing, No Edema Nuero-Cranial Nerves II-XII grossly intact, Motor WNL, DTRs WNL, Strength WNL, Non Focal Psych-Normal Mood Total Time Total Time Spent Total Time Spent (In Minutes): 45 min Total Time Includes: Examination of the Patient, Discharge Planning, Medication Reconciliation and Communication With Other Providers Discharge Plan Discharge Items Patient Disposition: Home - Self-Care Reason For Visit: HTN CRISIS, ICH Discharge Diagnosis: Metastatic cancer to brain: Stroke Like Symptoms Vasogenic edema/ Hemorrhagic Brain Metastasis H/O Non-small cell lung carcinoma Hypertensive crisis Seizure disorder H/O CVA/PVD COPD Chronic diarrhea DM II Hypothyroidism Anemia of chronic disease Condition on Discharge: Good Activity: Resume your previous activity Lifting: Gradually increase as tolerated Bathing: No limitations Exercise/Sports: Gradually increase as tolerated Driving/Machine Use: No limitations Weightbearing: Full weightbearing Non-emergency contact: Primary Care Provider and Oncologist Call non-emergency contact if: you have any medication questions Follow-up/Referrals: Patricia Villeda MD [Physician] - (Call for appointment) Danny Ibarra MD [Primary Care Provider] - Diet: Carb Consistent or DM2 and Heart Healthy Addtl Attending Provider Instructions: Take Glipizide 10 mg in am and 5 mg with dinner Call Dr Ibarra with your sugars to see if you need Insulin while on Decadron Pending Studies at Discharge: No Stand-Alone Forms: My Gone!, Smoking Cessation Medications and DC Order Prescriptions: New acetaminophen 325 mg Tablet 650 mg PO Q4H PRN (Reason: fever or pain) Qty: 100 RF: 0 oxycodone 5 mg Tablet 5 mg PO Q4H PRN (Reason: pain) Qty: 30 RF: 0 dexamethasone 4 mg Tablet 4 mg PO Q6 Qty: 120 RF: 0 glipizide 5 mg Tablet 10 mg PO QDB Qty: 30 RF: 0 glipizide 5 mg Tablet 5 mg PO QDD Qty: 60 RF: 0 Continued amoxicillin 500 mg tablet 2,000 mg PO ONCE Qty: 4 RF: 3 (DME) 3-in-1 Commode Misc See Rx Instructions .ROUTE .MEDSUPPLY Qty: 1 RF: 0 (DME) Wheeled Walker Misc See Rx Instructions .ROUTE .MEDSUPPLY Qty: 1 RF: 0 metronidazole [Metrogel] 1 % gel 1 appln TOP HS PRN (Reason: Rosacea) RF: 0 (DME) lancets [OneTouch Delica Lancets] 33 gauge misc See Rx Instructions .ROUTE .MEDSUPPLY Qty: 100 RF: 0 (DME) blood-glucose meter [OneTouch Verio Flex Start] Kit See Rx Instructions .ROUTE .MEDSUPPLY Qty: 1 RF: 0 (DME) Oxygen Home Liters Per Minute See Rx Instructions .ROUTE .MEDSUPPLY Qty: 1 RF: 0 Prolia 60 mg/mL syringe 60 mg subcut .COMPLEX RF: 0 Inflectra 100 mg recon soln See Rx Instructions IV .COMPLEX RF: 0 omeprazole 20 mg Capsule,Delayed Release(Dr/Ec) 20 mg PO QAM RF: 0 cholecalciferol (vitamin D3) 1,000 unit Capsule 1,000 unit PO QAM RF: 0 levothyroxine 25 mcg tablet 25 mcg PO DAILYBB RF: 0 levetiracetam 750 mg tablet 750 mg PO BID RF: 0 simvastatin 40 mg Tablet 40 mg PO HS RF: 0 metoprolol succinate 25 mg Tablet Extended Release 24 Hr 25 mg PO QAM RF: 0 tramadol 50 mg Tablet 50 - 100 mg PO Q6H PRN (Reason: pain) Qty: 40 RF: 0 lisinopril 30 mg Tablet 30 mg PO QAM RF: 0 Discontinued glipizide 5 mg tablet 5 mg PO BID RF: 0 Discharge Orders: Discharge Order (Routine); Ordered 09/14/20 Ordered By: Jhonathan Keenan/Other Patient Handouts: Managing Type 2 Diabetes, Managing Diabetes: The A1C Test Admission Data Admit Date/Time: 09/11/20 22:38 Attending Provider: Jhonathan Mcmahon Admit Provider: Fazal Lund Primary Care Provider: Danny Ibarra Other Providers: Fazal Lund ; Freda Chowdhury ; Faisal Corado ; Freda Moffett ; Allen Connor ; Karen Arana ; Patricia Villeda ; Tim Moran ; José Miguel Muñiz
== END 2020-09-14 11:30 | disposition home or self-care (01) | DRG 54 ==
LOC: ED 19:13 → SUATTDRO 22:38 → 2S 22:38

== ENCOUNTER 2021-07-24 17:02 | Inpatient (IN) ==
--- NOTE | 2021-07-24 17:35 | Emergency Department Note ---
Impression & Plan Clumsiness, Non-small cell cancer of right lung, Dizziness ED Provider Note Provider: Go Gann MD DATE OF SERVICE: 07/24/2021 CHIEF COMPLAINT: Dizziness, hand clumsiness HISTORY OF PRESENT ILLNESS: Patient is a 81-year-old female history of metastatic lung cancer with brain mets, hypertension, and diabetes presenting today via ambulance from her house. Patient lives alone. Reports she has been doing well but has a distant history of some seizures maintained on Keppra. Did have prior brain radiation as well as chemotherapy. Patient states that she was feeling fine today and denies any fever or trauma. Reports that she was going to start baking at home and started to feel dizzy and had some clumsiness and was dropping pans with her right hand. Denies any loss of consciousness. Went to her neighbors who called 911. Patient denies seizure today. She denies any palpitations or difficulty breathing. Patient denies vomiting. Patient states she is not had any difficulty with her speech. She denies any new numbness or tingling anywhere. Patient denies significant weakness in the arms or legs. Reports the dizziness is resolved at this time by arrival. REVIEW OF SYSTEMS: A total of 10 review of systems was obtained and negative except as stated above in the HPI. PAST MEDICAL HISTORY: As noted above MEDICATIONS: Reviewed home medications SOCIAL HISTORY: Lives at home alone PHYSICAL EXAM: GENERAL: alert and oriented in no acute distress on stretcher Head: normocephalic and atraumatic EYES: No injection, discharge or icterus. PERRL NECK: Trachea midline. ENT: Mucous membranes pink and moist. LUNGS: Airway patent. No retractions. Breath sounds clear HEART: Regular rate and rhythm. No chest wall tenderness ABDOMEN: Soft and non-tender, without guarding or rebound. SKIN: Acyanotic, warm, dry, without rashes EXTREMITIES: Without swelling, tenderness or deformity NEUROLOGICAL: No focal deficits moving all extremities. No aphasia. No facial droop or slurred speech. Normal strength and tone in the extremities. Sensation to gross touch normal. Ambulatory. Significant left hand [id number] ataxia but normal on the right. EK bpm normal sinus rhythm. No PVC or PAC. No acute ST segment elevation or depression with some inferior T wave inversions. QTC 461. CONTINUOUS CARDIAC MONITORING: was ordered and showed a heart rate of 60s to 70s bpm in normal sinus rhythm Patient's laboratory studies and imaging reviewed. Differential includes Benign positional vertigo, dehydration, hypovolemia, anemia, tumor, infection, hypoglycemia, electrolyte abnormalities, cardiac sources, intracerebral event, toxicologic, neurologic, as well as other patho logies. IMPRESSION/MEDICAL DECISION MAKING: Significant history of brain mets. No speech issues at this time or trauma reported. No LOC. For some clumsiness of the hand and some dizziness. Is on Ke ppra. Well-appearing at this time and no infectious symptoms reported. Denies palpitations or chest discomfort. Basic labs and EKG were obtained. No evidence of significant arrhythmia. CT of the head obtained. Follows with oncology and neurology locally and was planning to have follow-up brain MRI in 6 days. Blood work here without significant abnormality. EKG without significant arrhythmia. Patient is ambulatory here. Patient has some change of clumsiness not to the left hand versus the right is fairly ataxic here. Discussed with [facility] neurology Dr. Connor. Discussed with the patient his recommendations for MRI. She lives alone with a new changes will bring into the hospital for further evaluation. Hospitalist contacted. MRI to be pursued with further evaluation of possible stroke versus change in neuro status from her underlying cancer. DIAGNOSIS: Dizziness, clumsiness DISPOSITION: Hospitalist will evaluate Patient was agreeable with this plan. Past Med/Surg History Medical History (Updated 07/24/21 @ 19:47 by Go Gann M.D.) Anemia chronic iron deficiency anemia in setting of ulcerative colitis (does receive routine iron infusions), under surveillance of [facility] hematology/GI. 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 MRI imaging and radiation treatments x5. Nocturnal hypoxia 2L/min NC HS Non-small cell cancer of right lung (~2017) s/p lower and middle lung lobe resection (2017), no chemo or xrt PVCs (premature ventricular contractions) Seizure disorder grand-mal. last seizure ~2019. follows with neurology ([place] - [facility] Ines Burton) Ulcerative colitis Inflectra treatments - follows with [facility] GI Surgical History History of breast biopsy History of colonoscopy History of lobectomy of lung Right VATS middle and lower lobectomy: 07/11/17: Grade 2 view, MAC#3, BANG History of repair of rotator cuff History of tonsillectomy History of tubal ligation S/P right rotator cuff repair Status post right knee replacement Family History Sister Family history of diabetes mellitus Other Heart disease No family history of adverse response to anesthesia Social History Smoking Status: Former smoker Second Hand Exposure: No; Do You Dip or Chew Tobacco: No; Hx Alcohol Use: No Hx Substance Use: No Preferred Language: Pashto Communication Ability: Effective Visual Impairment: No Limitations Regional Loss Prevention Manager Required: No Beliefs That Will Affect Care: None marital status: / Current Living Situation: Alone Current Living Situation Comment: [facility] Other Information That Helps Us Care for You: No Feels Safe at Home: Yes Safety Concerns: Feels Safe At This Time Assistive Devices: Oxygen - at Night Allergies Allergies Allergy/AdvReac Type Severity Reaction Status Date / Time pembrolizumab [From [facility]] AdvReac Mild Diarrhea Verified 07/24/21 17:52 Home Meds Home Medications Medication Instructions Recorded Confirmed cholecalciferol (vitamin D3) 25 1,000 unit PO QAM 04/27/18 07/24/21 mcg (1,000 unit) capsule omeprazole 20 mg capsule,delayed 20 mg PO QAM 04/27/18 07/24/21 release Oxygen Home #1 ea 02/04/20 06/07/21 blood-glucose meter (OneTouch #1 ea 02/04/20 06/07/21 Verio Flex Start) lancets 33 gauge (OneTouch Delica #100 ea 02/04/20 06/07/21 Lancets) infliximab-dyyb 100 mg intravenous See Rx Instructions IV .COMPLEX 04/05/20 07/24/21 solution (Inflectra) levothyroxine 25 mcg tablet 25 mcg PO DAILYBB 09/11/20 07/24/21 glipizide 5 mg tablet 10 mg PO QAM tab 01/04/21 07/24/21 linagliptin 5 mg tablet (Tradjenta) 5 mg PO QAM 01/04/21 07/24/21 metoprolol succinate 25 mg 50 mg PO QAM tab 01/04/21 07/24/21 tablet,extended release 24 hr furosemide 20 mg tablet 20 mg PO QAM 01/30/21 07/24/21 lorazepam 0.5 mg tablet 0.5 mg PO HS PRN 01/30/21 07/24/21 rosuvastatin 10 mg tablet 10 mg PO HS 01/30/21 07/24/21 levetiracetam 750 mg tablet 750 mg PO BID tab 06/07/21 07/24/21 aspirin 81 mg tablet,delayed 81 mg PO DAILY 07/24/21 07/24/21 release Results & Data (ED) Vital Signs Vital Signs - 24 hr 07/24/21 17:21 07/24/21 17:22 07/24/21 17:30 Temperature 36.8 C Temperature Source Oral Pulse Rate 74 75 71 Pulse Rate from SpO2 Sensor 71 Respiratory Rate 18 21 20 Respiratory Effort / Characteristics Non-Labored Respiratory Depth Normal Blood Pressure 172/87 H Blood Pressure Mean 115 Pulse Oximetry 99 99 98 Oxygen Delivery Method Room Air Room Air Room Air Sepsis Recent Fever Within 48 Hours No Sepsis New/Unexplained Change in Mental Status No Sepsis Action Taken by Nursing No Action Required 07/24/21 17:40 07/24/21 17:48 07/24/21 17:50 Temperature Temperature Source Pulse Rate 64 68 67 Pulse Rate from SpO2 Sensor 64 65 Respiratory Rate 17 18 21 Respiratory Effort / Characteristics Respiratory Depth Blood Pressure Blood Pressure Mean Pulse Oximetry 98 98 Oxygen Delivery Method Room Air Room Air Room Air Sepsis Recent Fever Within 48 Hours Sepsis New/Unexplained Change in Mental Status Sepsis Action Taken by Nursing 07/24/21 18:00 07/24/21 18:10 07/24/21 18:35 Temperature Temperature Source Pulse Rate 76 68 77 Pulse Rate from SpO2 Sensor 69 Respiratory Rate 21 15 18 Respiratory Effort / Characteristics Respiratory Depth Blood Pressure Blood Pressure Mean Pulse Oximetry 97 98 98 Oxygen Delivery Method Room Air Room Air Room Air Sepsis Recent Fever Within 48 Hours Sepsis New/Unexplained Change in Mental Status Sepsis Action Taken by Nursing 07/24/21 18:40 07/24/21 18:50 07/24/21 19:00 Temperature Temperature Source Pulse Rate 67 72 73 Pulse Rate from SpO2 Sensor 65 71 Respiratory Rate 23 20 20 Respiratory Effort / Characteristics Respiratory Depth Blood Pressure Blood Pressure Mean Pulse Oximetry 99 98 98 Oxygen Delivery Method Sepsis Recent Fever Within 48 Hours Sepsis New/Unexplained Change in Mental Status Sepsis Action Taken by Nursing 07/24/21 19:10 07/24/21 19:20 07/24/21 19:30 Temperature Temperature Source Pulse Rate 71 71 69 Pulse Rate from SpO2 Sensor Respiratory Rate 20 14 18 Respiratory Effort / Characteristics Respiratory Depth Blood Pressure Blood Pressure Mean Pulse Oximetry 98 98 98 Oxygen Delivery Method Sepsis Recent Fever Within 48 Hours Sepsis New/Unexplained Change in Mental Status Sepsis Action Taken by Nursing 07/24/21 19:42 07/24/21 19:50 07/24/21 20:00 Temperature Temperature Source Pulse Rate 65 80 77 Pulse Rate from SpO2 Sensor 75 74 Respiratory Rate 17 22 17 Respiratory Effort / Characteristics Respiratory Depth Blood Pressure 171/89 H Blood Pressure Mean 116 Pulse Oximetry 97 97 94 Oxygen Delivery Method Room Air Room Air Sepsis Recent Fever Within 48 Hours Sepsis New/Unexplained Change in Mental Status Sepsis Action Taken by Nursing 07/24/21 20:10 07/24/21 20:20 07/24/21 20:30 Temperature Temperature Source Pulse Rate 78 71 Pulse Rate from SpO2 Sensor 77 78 69 Respiratory Rate 22 18 19 Respiratory Effort / Characteristics Respiratory Depth Blood Pressure Blood Pressure Mean Pulse Oximetry 93 94 97 Oxygen Delivery Method Room Air Sepsis Recent Fever Within 48 Hours Sepsis New/Unexplained Change in Mental Status Sepsis Action Taken by Nursing 07/24/21 20:40 Temperature Temperature Source Pulse Rate 73 Pulse Rate from SpO2 Sensor 67 Respiratory Rate 20 Respiratory Effort / Characteristics Respiratory Depth Blood Pressure Blood Pressure Mean Pulse Oximetry 94 Oxygen Delivery Method Sepsis Recent Fever Within 48 Hours Sepsis New/Unexplained Change in Mental Status Sepsis Action Taken by Nursing Laboratory Data Result diagrams: 07/24/21 17:50 07/24/21 17:50 Lab Results 07/24/21 07/24/21 07/24/21 Range/Units 17:50 17:50 19:50 WBC 5.71 (4.8-10.8) K/uL RBC 4.25 (4.2-5.4) M/uL Hgb 12.8 (12.0-16.0) g/dL Hct 38.8 (37-47) % MCV 91.3 (80-100) fL MCH 30.1 (25-34) pg MCHC 33.0 (32-36) g/dL RDW Std Deviation 44.1 (36.4-46.3) fL RDW Coeff of Timothy 13.2 (11.5-14.5) % Plt Count 320 (130-400) K/uL MPV 9.9 (7.4-10.4) fL Immature Gran % (Auto) 0.0 % Neut % (Auto) 56.5 % Lymph % (Auto) 31.2 % [place] % (Auto) 6.8 % Eos % (Auto) 5.3 % Baso % (Auto) 0.2 % Neut # (Auto) 3.23 (1.4-6.5) K/uL Lymph # (Auto) 1.78 (1.2-3.4) K/uL [place] # (Auto) 0.39 (0.11-0.59) K/uL Eos # (Auto) 0.30 (0-0.5) K/uL Baso # (Auto) 0.01 (0-0.2) K/uL Immature Gran # (Auto) 0.00 (0.00-0.02) K/uL Sodium 137 (136-145) mmol/L Potassium 3.5 (3.5-5.1) mmol/L Chloride 102 (98-107) mmol/L Carbon Dioxide 31 (21-32) mmol/L Anion Gap 4.0 (3-11) BUN 26 H (7-18) mg/dl Creatinine 1.01 (0.6-1.2) mg/dl Est Cr Clr Drug Dosing 38.3 ml/min Est GFR ( Amer) 61.3 ml/min Est GFR (Non-Af Amer) 52.9 ml/min BUN/Creatinine Ratio 25.3 H (10-20) Glucose 131 H (70-99) mg/dl Calcium 9.8 (8.5-10.1) mg/dl Total Bilirubin 0.4 (0.2-1) mg/dl AST 35 (15-37) U/L ALT 31 (12-78) Alkaline Phosphatase 77 (45-117) U/L Troponin I < 0.015 (0-0.045) ng/ml Total Protein 7.6 (6.4-8.2) gm/dl Albumin 3.6 (3.4-5.0) gm/dl Globulin 4.0 (2.5-4.0) gm/dl Albumin/Globulin Ratio 0.9 (0.9-2) SARS-CoV-2, RNA, NAAT NEGATIVE (NEGATIVE) Administered Medications Lorazepam (Lorazepam 0.5 Mg Tab) 0.5 mg PO HS PRN PRN Reason: Anxiety Stop: 08/23/21 22:50 Last Admin: 07/24/21 23:17 Dose: 0.5 mg Documented by: [id number] Imaging Data Radiologist's Impression: Head CT 07/24/21 17:[address] DOSE: 884.08 mGy.cm HISTORY: Dizziness R hand clumsy, history of brain mets TECHNIQUE: Multiaxial CT images of the head were performed without the use of intravenous contrast. Automated exposure control was utilized for this study. A dose lowering technique was utilized adhering to the principles of ALARA. Comparison: Brain MRI 06/06/2021. Findings: The paranasal sinuses and mastoid air cells are clear. Focal areas of vasogenic edema seen within the left temporal lobe, left frontoparietal junction, and right parietal lobe are similar to the prior study and are consistent with the patient's known metastatic foci. The 11 mm cystic metastatic focus within the left frontoparietal junction is seen on image 25 and the 11 mm metastatic nodule within the right parietal lobe is seen on image 22. A left temporal lobe metastatic focus is too small to evaluate by this modality. No new masses are new areas of vasogenic edema identified to suggest progressive metastatic disease. The ventricles are normal in size. No hematoma, midline shift, acute infarct. Impression: No significant change in a few scattered metastatic intracranial lesions with associated vasogenic edema. No acute infarct or intracranial hemorrhage identified. ACT 112: Negative or not required by law. Electronically signed by: James Villarreal M.D. 07/24/2021 6:43 PM Discharge Plan Visit Data Chief Complaint: Dizziness Stated Complaint: Dizziness ED Provider: Go Gann Discharge Problem: Clumsiness, Non-small cell cancer of right lung, Dizziness Patient Disposition: Admitted As Inpatient Discharge Instructions Interventions: ED Discharge Assessment Last Done: 07/24/21 22:20
[2021-07-24 18:01] LABS: Basophils # (auto) 0.01 K/uL (0-0.2); Basophils % (auto) 0.2 %; Eosinophils % (auto) 5.3 %; Hematocrit (blood only) 38.8 % (37-47); Hemoglobin 12.8 g/dL (12.0-16.0); Lymphocytes # (auto) 1.78 K/uL (1.2-3.4); Lymphocytes % (auto) 31.2 %; Mean Corpuscular Hemoglobin 30.1 pg (25-34); Mean Corpuscular Volume 91.3 fL (80-100); Mean Platelet Volume 9.9 fL (7.4-10.4); Monocytes # (auto) 0.39 K/uL (0.11-0.59); Monocytes % (auto) 6.8 %; Neutrophils # (auto) 3.23 K/uL (1.4-6.5); Neutrophils % (auto) 56.5 %; Platelet Count 320 K/uL (130-400); RDW Coefficient of Variation 13.2 % (11.5-14.5); RDW Standard Deviation 44.1 fL (36.4-46.3); Red Blood Count 4.25 M/uL (4.2-5.4); White Blood Count 5.71 K/uL (4.8-10.8)
[2021-07-24 18:23] LABS: Albumin Level 3.6 gm/dl (3.4-5.0); BUN Creatinine Ratio 25.3 (10-20); Blood Urea Nitrogen 26 mg/dl (7-18); Calcium 9.8 mg/dl (8.5-10.1); Carbon Dioxide 31 mmol/L (21-32); Chloride 102 mmol/L (98-107); Creatinine Clr Calc Pharmacy 38.3 ml/min; Est GFR (African American) 61.3 ml/min; Est GFR (Non-African American) 52.9 ml/min; Glucose 131 mg/dl (70-99); Potassium 3.5 mmol/L (3.5-5.1); Sodium 137 mmol/L (136-145)
[2021-07-24 18:34] LABS: Alanine Aminotransferase 31 (12-78); Albumin Globulin Ratio 0.9 (0.9-2); Alkaline Phosphatase 77 U/L (45-117); Aspartate Aminotransferase 35 U/L (15-37); Bilirubin,Total 0.4 mg/dl (0.2-1); Total Protein 7.6 gm/dl (6.4-8.2); Troponin I < 0.015 ng/ml (0-0.045)
--- NOTE | 2021-07-24 18:44 | CT Scan Report ---
HEAD CT NONCONTRAST CT DOSE: 884.08 mGy.cm HISTORY: Dizziness R hand clumsy, history of brain mets TECHNIQUE: Multiaxial CT images of the head were performed without the use of intravenous contrast. A utomated exposure control was utilized for this study. A dose lowering technique was utilized adheri ng to the principles of ALARA. Comparison: Brain MRI 06/06/2021. Findings: The paranasal sinuses and mastoid air cells are clear. Focal areas of vasogenic edema seen within the left temporal lobe, left frontoparietal junction, and right parietal lobe are similar to t he prior study and are consistent with the patient's known metastatic foci. The 11 mm cystic metastat ic focus within the left frontoparietal junction is seen on image 25 and the 11 mm metastatic nodule within the right parietal lobe is seen on image 22. A left temporal lobe metastatic focus is too smal l to evaluate by this modality. No new masses are new areas of vasogenic edema identified to suggest progressive metastatic disease. The ventricles are normal in size. No hematoma, midline shift, acute infarct. Impression: No significant change in a few scattered metastatic intracranial lesions with associated vasogenic ed stacy. No acute infarct or intracranial hemorrhage identified. ACT 112: Negative or not required by law. Electronically signed by: James Villarreal M.D. 07/24/2021 6:43 PM
[2021-07-24] MEDS ORDERED: NITROGLYCERIN SL 0.4 MG/TAB TAB SL PRN (22:51)
[2021-07-24] MEDS ORDERED: PHARMACIST DISCHARGE MED REC CONSULT PRN (22:51)
[2021-07-24] MEDS ORDERED: SODIUM CHLORIDE 0.9% 1000ML 1,000 ML IV SCH (22:51)
[2021-07-24] MEDS ORDERED: POLYETHYLENE (MIRALAX) 17 GM PACK PO PRN (22:51)
[2021-07-24] MEDS ORDERED: ACETAMINOPHEN 325 MG TAB PO PRN (22:51)
[2021-07-24] MEDS ORDERED: LORazepam 0.5 MG TAB PO PRN (22:51)
[2021-07-24] MEDS ORDERED: GLUCAGON FOR INJ 1 MG VIAL IM PRN (23:00)
[2021-07-24] MEDS ORDERED: DEXTROSE 50% 50 ML SYRINGE IV PRN (23:00)
[2021-07-24] MEDS ORDERED: CARBOHYDRATES FOR HYPOGLYCEMIA PO PRN (23:00)
[2021-07-24] MEDS ORDERED: GLUCOSE 10 TABS/TUBE PO PRN (23:00)
[2021-07-24] MEDS ORDERED: GLUCOSE 40% GEL 15 GM TUBE PO PRN (23:00)
--- NOTE | 2021-07-24 23:11 | History and Physical Report ---
DATE OF ADMISSION: 07/24/2021. CHIEF COMPLAINT: Numbness in her left upper extremity and some lightheadedness. HISTORY OF PRESENT ILLNESS: A 81-year-old female with past medical history significant for type 2 diabetes, hyperlipidemia, hypothyroidism, COPD, malignant pleural effusion, history of peripheral vascular disease, nonsustained ventricular tachycardia, hypertension, seizures, iron deficiency anemia, history of ischemic stroke. The patient also has history of non-small cell cancer of the right lung and also status post middle and lower lobe lobectomy on 07/11/2017, also pleural fluid suspicious for cancer. The patient hadt Keytruda in 2017, which was stopped in December 2017 due to colitis. Received no further adjuvant therapy and she was diagnosed with metastatic brain disease in September 2020, underwent fractionated stereotactic radiosurgery. Currently on Keppra. Follows with neurology and medical oncology and radiation oncology. Currently lives alone, has sisters locally. Presents with left upper extremity numbness, started at 3:30 p.m. She was in the house, going to the kitchen. She could not hold things in the left hand, that is the reason she came here. Initial workup with a CT of the head showed no significant change with scattered metastatic intracranial lesions and also with vasogenic edema. No acute infarct identified. ER spoke with neurology, and recommended to do MRI scan. Currently resting comfortably, hemodynamically stable. Says she was able to walk in the ER okay, but she still feels some slight lightheadedness. Speech is okay. Denies any headache. Vision is okay. No earache, no runny nose, no sore throat, no cough, no difficulty swallowing. Appetite is okay. No chest pain, no shortness of breath, no nausea, no abdominal pain. Normal bowel and bladder movements. No hematuria or blood in the stools or black stools. No swelling in the legs , No rash. Still has numbness in the left upper extremity. ALLERGIES: KEYTRUDA. PAST MEDICAL HISTORY: As mentioned above. PAST SURGICAL HISTORY: Right knee arthroplasty, colonoscopies, right middle and lower lung lobectomy, EGDs, ligation of the oviducts, right breast biopsy, appendectomy, tonsillectomy, adenoidectomy, revision of thumb tendon. MEDICATIONS: The patient is on aspirin 81 mg p.o. daily, vitamin D 1000 units p.o. a.m., furosemide 20 mg p.o. a.m., glipizide 10 mg p.o. a.m., infliximab intravenous, Keppra 750 mg p.o. b.i.d., levothyroxine 25 mcg p.o. daily, linagliptin 5 mg p.o. daily, ____ 0.5 mg p.o. at bedtime p.r.n., metoprolol succinate 50 mg p.o. a.m., omeprazole 20 mg p.o. a.m., pravastatin 10 mg p.o. at bedtime. FAMILY HISTORY: Significant for father has glaucoma, heart disorder; mother has hypertension, Alzheimer's; sister has allergies, asthma; maternal grandfather, lung cancer. SOCIAL HISTORY: , lives alone. Quit smoking in 2017, smoked half pack a day for 40 years. No alcohol use. No drug use. REVIEW OF SYSTEMS: As per HPI. Rest of review of systems is negative. PHYSICAL EXAMINATION: GENERAL: The patient is of moderate build, not in acute distress. VITAL SIGNS: Temperature 36.8, pulse 78, respiratory rate 18, blood pressure 171/89, oxygen 94% on room air. HEENT: Pupils equal, round and reactive to light. Oral mucosa moist. NECK: No JVD, no neck masses. CARDIOVASCULAR: S1 and S2 heard. Regular rate and rhythm. No murmur, no gallop. RESPIRATORY SYSTEM: Normal AP diameter. No accessory muscle use. No wheezing, no crackles. ABDOMEN: Soft, bowel sounds present, nontender, nondistended. CENTRAL NERVOUS SYSTEM: Alert and oriented. Speech is clear. No facial droop. Power is 5/5 in all extremities except for left upper extremity, power is 4/5. Some slight pronator drift on the left upper extremity. Could not lift the left upper extremity above the head and coordination of movements abnormal in the left upper extremity. EXTREMITIES: No edema, no erythema. LABORATORY DATA: WBC 5.7, hemoglobin 12.8, hematocrit 38.8, platelets 320. Sodium 137, potassium 3.5, chloride 102, bicarbonate 31, BUN 26, creatinine 1.01, serum glucose 131, calcium 9.8, total bilirubin 0.4, AST 35, ALT 31, alkaline phosphatase 77. Troponin I less than 0.015. SARS-CoV-2 negative. IMAGING DATA: CT of the head, no significant change and a few scattered metastatic intracranial lesions with associated vasogenic edema, no acute infarct or intracranial hemorrhage identified. EKG: Normal sinus rhythm, rate of 65, nonspecific ST changes seen in the inferior leads. ASSESSMENT AND PLAN: This is a 81-year-old female who presents with left upper extremity numbness. 1. Left upper extremity numbness: Possibly some weakness and issues with coordination. The patient has history of brain mets. Initial CT scan of the head, no acute findings and whole brain mets seen. ER spoke to neurology and recommended MRI scan. Will do full stroke workup with MRI scan, echo, carotid Doppler, speech evaluation, neuro evaluation in the a.m. PT/OT. Closely monitor in the [employer] tele. Follow echocardiogram. 2. Metastatic lung cancer, status post middle and lower lobe lobectomy. Received Keytruda in the past and also for brain mets she received fractionated stereotactic radiosurgery. Follows with hem/onc and also neurology, and also for the radiation oncology. There is a plan for MRI scan. We will follow the MRI scan ordered today. 3. History of diabetes: Hold home medication, placed on Lantus insulin sliding scale. Follow the blood sugars. 4. Seizures: History of Keppra. 5. History of hypothyroidism: Continue Synthroid. 6. Hypertension: Continue metoprolol, will monitor the blood pressure. 7. History of hyperlipidemia: Continue statin. 8. Gastroesophageal reflux disease: On omeprazole. 9. Hx of supraventricular tachycardia: On metoprolol. 10. Colitis after Keytruda: On Inflectra infusions. 11. History of transient ischemic attack: On statin and aspirin. 12. History of stroke: On aspirin and statin. 13. Deep venous thrombosis prophylaxis: Will place her on sequential compression devices for now. DISPOSITION: Closely monitor in the [employer] tele. PT/OT prior to discharge. Social service to help with discharge plan. Addendum: MRI brain preliminary report shows increasing brain mets and increasing edema. Given iv decadron. Consulted Oncology and radiation/oncology.Plan to continue iv decadron. Radiation/oncology going to look at images and let us know further plan. Job ID: [id number] MTDD
[2021-07-24] MEDS: INSULIN ASPART PER UNIT SC SCH (23:34)
[2021-07-25] MEDS ORDERED: GADOBUTROL 65ML VIAL IV ONE (00:22)
[2021-07-25] MEDS: levETIRAcetam 250 MG TAB PO SCH ×3 (01:16→20:16)
[2021-07-25] MEDS: INSULIN GLARGINE SOLOSTAR 100 UNITS/ML 3 ML PEN SC SCH ×3 (01:16→20:17)
[2021-07-25] MEDS: ROSUVASTATIN CALCIUM 10 MG TAB PO SCH ×2 (01:17→20:17)
[2021-07-25] MEDS ORDERED: dexAMETHasone 8 MG in SYRINGE 0 ML IV ONE (02:30)
[2021-07-25 05:52] LABS: Basophils # (auto) 0.02 K/uL (0-0.2); Basophils % (auto) 0.3 %; Eosinophils % (auto) 3.3 %; Hematocrit (blood only) 38.4 % (37-47); Hemoglobin 12.6 g/dL (12.0-16.0); Immature Granulocytes # (auto) 0.01 K/uL (0.00-0.02); Immature Granulocytes % (auto) 0.2 %; Lymphocytes # (auto) 0.85 K/uL (1.2-3.4); Lymphocytes % (auto) 13.9 %; Mean Corpuscular Hemoglobin 30.1 pg (25-34); Mean Corpuscular Hgb Conc 32.8 g/dL (32-36); Mean Corpuscular Volume 91.9 fL (80-100); Mean Platelet Volume 10.2 fL (7.4-10.4); Monocytes # (auto) 0.25 K/uL (0.11-0.59); Monocytes % (auto) 4.1 %; Neutrophils # (auto) 4.79 K/uL (1.4-6.5); Neutrophils % (auto) 78.2 %; Platelet Count 321 K/uL (130-400); RDW Coefficient of Variation 13.4 % (11.5-14.5); RDW Standard Deviation 45.3 fL (36.4-46.3); Red Blood Count 4.18 M/uL (4.2-5.4); White Blood Count 6.12 K/uL (4.8-10.8)
[2021-07-25 06:21] LABS: BUN Creatinine Ratio 27.2 (10-20); Blood Urea Nitrogen 28 mg/dl (7-18); Calcium 9.6 mg/dl (8.5-10.1); Carbon Dioxide 30 mmol/L (21-32); Chloride 106 mmol/L (98-107); Creatinine Clr Calc Pharmacy 37.2 ml/min; Est GFR (African American) 59.2 ml/min; Est GFR (Non-African American) 51.1 ml/min; Glucose 140 mg/dl (70-99); Potassium 3.8 mmol/L (3.5-5.1); Sodium 140 mmol/L (136-145)
[2021-07-25] MEDS: LEVOTHYROXINE SODIUM 25 MCG TABLET PO SCH (06:21)
[2021-07-25 06:26] LABS: Chol HDL Ratio 3; Cholesterol 186 mg/dl (0-200); HDL Cholesterol 55 mg/dl; LDL Cholesterol Calculated 104 mg/dl; Triglycerides 133 mg/dl (0-150); Troponin I < 0.015 ng/ml (0-0.045); VLDL Cholesterol 27 mg/dl
[2021-07-25 06:32] LABS: Magnesium 1.9 mg/dl (1.8-2.4)
--- NOTE | 2021-07-25 07:20 | Ultrasound Report ---
US carotid doppler BI CLINICAL HISTORY: 81 years-old Female with cva. Acute strokelike symptoms COMPARISON: Brain MRI 07/24/2021, CTA neck 09/11/2020 TECHNIQUE: Multiple real time sonographic images of the carotid bifurcations were obtained assessing flaherty scale, color Doppler and spectral wave form appearance FINDINGS: RIGHT CAROTID: The peak systolic velocity measured within the right ICA is85.4 cm/sec. The end sánchez tolic velocity measured 22.9 cm/sec. The ICA to CCA ratio measured 1.9 which correlates with a steno sis of 0-50%. There is moderate to extensive atherosclerotic plaque of the right carotid bulb with hi gh-grade stenosis of the proximal external carotid artery with elevated peak systolic velocities josé miguel uring up to 634 cm/s. Reversal of flow is noted within a proximal branch of the external carotid susan ry. LEFT CAROTID: The peak systolic velocity measured within the right ICA is78.9 cm/sec. The end diast olic velocity measured 24.1 cm/sec. The ICA to CCA ratio measured 1.1 which correlates with a stenosi s of 0-50%. There is moderate to severe atherosclerotic plaque of the left carotid bulb. Visualizatio n of the proximal left ICA secondary to plaque. There is normal antegrade vertebral flow bilaterally. Blood pressure on the left is measured at 177/7 1 and on the right is measured at 190/75. IMPRESSION: 1. Moderate to severe atherosclerotic plaque of the carotid bulbs redemonstrated without hemodynamica lly significant stenosis of the internal carotid arteries. 2. High-grade stenosis of the right proximal external carotid artery appears unchanged from the 021 study. 3. Normal antegrade vertebral flow bilaterally. 4. Elevated blood pressure. ACT 112: Negative or not required by law. The above report was generated using voice recognition software. It may contain grammatical, syntax o r spelling errors. Electronically signed by: Paul Solis M.D. 07/25/2021 7:19 AM
[2021-07-25 08:28] LABS: Estimated Average Glucose 180 mg/dl; Hemoglobin A1C 7.9 % (4.5-5.6)
[2021-07-25] MEDS: METOPROLOL SUCC 50MG EXT REL TAB PO SCH (08:35)
[2021-07-25] MEDS: PANTOprazole 40 MG TAB PO SCH (08:35)
[2021-07-25] MEDS: CHOLECALCIFEROL 1,000 UNITS 25 MCG TAB PO SCH (08:36)
[2021-07-25] MEDS: ASPIRIN 81 MG ECTAB PO SCH (08:36)
[2021-07-25] MEDS: FUROSEMIDE 20 MG TAB PO SCH (08:36)
[2021-07-25] MEDS: INSULIN ASPART PER UNIT SC SCH ×4 (08:39→20:15)
--- NOTE | 2021-07-25 08:47 | Neurology Consultation ---
Date of Consultation July 25, 2021 Assessment & Plan (1) Seizure disorder: 1. continue Keppra 750 mg q 12 hours for now 2. follow up in neurology clinic as scheduled. (2) Clumsiness: 1. increase in vaso edema with metastatic lung cancer to the brain 2. start dexamethasone 4 mg twice daily x 2 weeks then 2 mg daily x 2 weeks 3. she will contact DM management for recommendation due to her DM 4. continue to exercise left hand for further recovery (3) Metastatic cancer to brain: 1. will need to follow up with Dr Villeda in medical oncology ok to discharge once medically stable Supervising Physician Co-Signing Physician Notes Patient was seen and examined. Sister at bedside. Feeling better today. Up walking. Upper extremity ataxia improved. MRI brain reviewed with patient in room. No evidence of acute stroke. Mild increase in vasogenic edema associated with her intracranial metastatic disease. Will start steroids and plan to discharge to home tomorrow, 07/26. History of Present Illness Reason for Consultation: left uper extremity numbness, hx of brain mets Requesting Physician: Huber Rodriguez MD Attending Physician: Huber Rodriguez MD History of Present Illness Fatoumata Dahl) is a 81 year old female withPMH- DM 2, HLD, hypothyroidism, COPD, malignant pleural effusion, PVD, nonsustained ventricular tachycardia, HTN, seizures, JANES, ischemic stroke, non-small cell cancer of the right lung and also status post middle and lower lobe lobectomy on 07/11/2017, also pleural fluid suspicious for cancer.� She was on Keytruda in 2017, which was stopped in December 2017 due to colitis and had received no further adjuvant therapy. She was diagnosed with metastatic brain disease in September 2020, underwent fractionated stereotactic radiosurgery. She is currently on Keppra 750 mg q 12 hours which was started after a seizure due to vasoedema and brain lesions. She presented to [facility] 07/24/21 with left upper extremity numbness, started at 3:30 p.m.� She was in the house, going to the kitchen.� She could not hold things in the left hand. CT of the head showed no significant change with scattered metastatic intracranial lesions and also with vasogenic edema. No acute infarct identified. She is doing better but still having issues with left hand clumsy with certain tasks. She is apprehensive about going home tonight. She lives alone but does have neighbors. denies CP, SOB, abdominal pain, N, V. � Allergies Allergy/AdvReac Type Severity Reaction Status Date / Time pembrolizumab [From [facility]] AdvReac Mild Diarrhea Verified 07/24/21 17:52 Home Medications Medication Instructions Recorded Confirmed Type cholecalciferol (vitamin D3) 25 1,000 unit PO QAM 04/27/18 07/24/21 History mcg (1,000 unit) capsule omeprazole 20 mg capsule,delayed 20 mg PO QAM 04/27/18 07/24/21 History release Oxygen Home #1 ea 02/04/20 06/07/21 History blood-glucose meter (OneTouch #1 ea 02/04/20 06/07/21 History Verio Flex Start) lancets 33 gauge (OneTouch Delica #100 ea 02/04/20 06/07/21 History Lancets) infliximab-dyyb 100 mg intravenous See Rx Instructions IV .COMPLEX 04/05/20 07/24/21 History solution (Inflectra) levothyroxine 25 mcg tablet 25 mcg PO DAILYBB 09/11/20 07/24/21 History glipizide 5 mg tablet 10 mg PO QAM tab 01/04/21 07/24/21 History linagliptin 5 mg tablet (Tradjenta) 5 mg PO QAM 01/04/21 07/24/21 History metoprolol succinate 25 mg 50 mg PO QAM tab 01/04/21 07/24/21 History tablet,extended release 24 hr furosemide 20 mg tablet 20 mg PO QAM 01/30/21 07/24/21 History lorazepam 0.5 mg tablet 0.5 mg PO HS PRN 01/30/21 07/24/21 History rosuvastatin 10 mg tablet 10 mg PO HS 01/30/21 07/24/21 History levetiracetam 750 mg tablet 750 mg PO BID tab 06/07/21 07/24/21 History aspirin 81 mg tablet,delayed 81 mg PO DAILY 07/24/21 07/24/21 History release Patient History Medical History (Updated 07/25/21 @ 09:52 by Patricia Villeda MD) Anemia chronic iron deficiency anemia in setting of ulcerative colitis (does receive routine iron infusions), under surveillance of [facility] hematology/GI. 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 MRI imaging and radiation treatments x5. Nocturnal hypoxia 2L/min NC HS Non-small cell cancer of right lung (~2017) s/p lower and middle lung lobe resection (2017), no chemo or xrt PVCs (premature ventricular contractions) Seizure disorder grand-mal. last seizure ~2019. follows with neurology ([place] [facility]) Ulcerative colitis Inflectra treatments - follows with [facility] GI Surgical History History of breast biopsy History of colonoscopy History of lobectomy of lung Right VATS middle and lower lobectomy: 07/11/17: Grade 2 view, MAC#3, BANG History of repair of rotator cuff History of tonsillectomy History of tubal ligation S/P right rotator cuff repair Status post right knee replacement Family History Sister Family history of diabetes mellitus Other Heart disease No family history of adverse response to anesthesia Social History Smoking Status: Former smoker Second Hand Exposure: No; Do You Dip or Chew Tobacco: No; Hx Alcohol Use: No Hx Substance Use: No Preferred Language: Spanish Communication Ability: Effective Visual Impairment: No Limitations Costume Mistress Required: No Beliefs That Will Affect Care: None marital status: / Current Living Situation: Alone Current Living Situation Comment: [facility] How many Children do You have: 0 Other Information That Helps Us Care for You: No Feels Safe at Home: Yes Safety Concerns: Feels Safe At This Time Assistive Devices: None Review of Systems Review of Systems: All systems reviewed & are unremarkable except as noted in HPI & below Physical Exam Physical Exam: Physical Exam: Constitutional: appearance nourished Ears, Nose, Mouth and Throat: mucous membranes moist, no injection and skin normal, eyes normal Cardiovascular: normal S-1 and S-2 and regular rate and rhythm Respiratory: course distant breath sounds Musculoskeletal: no peripheral edema and good distal pulses Skin: no stigmata of neurocutaneous disease noted and normal and intact Eyes: extraocular muscles intact (EOMI) and pupils equal, round and reactive to light (PERRL) NEUROLOGIC EXAMINATION: Mental status: Alert and interactive Oriented to full date and location Oriented to person Speech fluent with no evidence of aphasia Cranial Nerves smile eye brow raise symmetric Reflexes: Deep tendon reflexes were symmetrical and graded 2/5. Sensory: to light cool touch Coordination: finger to nose no bi pass Gait/Stance: Posture sitting up in bed Motor: Negative for pronator drift of out stretched arms with eyes closed. 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, hip flex 5/5 Results & Data ([facility]) Vital Signs (Past 12 Hours) Vital Signs Temp Pulse Pulse Resp BP BP Pulse Ox 07/25/21 07:29 36.5 C 70 17 136/66 96 07/25/21 03:44 36.6 C 70 18 145/75 H 100 07/24/21 22:59 81 07/24/21 22:51 36.6 C 79 18 165/81 H 95 07/24/21 22:10 79 20 93 07/24/21 22:00 74 20 135/72 94 07/24/21 21:50 75 23 94 07/24/21 21:40 75 24 94 07/24/21 21:30 75 22 94 07/24/21 21:20 79 22 94 07/24/21 21:10 74 14 96 07/24/21 21:00 94 H 18 94 07/24/21 20:50 83 22 94 Pulse Ox 07/25/21 07:29 07/25/21 03:44 07/24/21 22:59 07/24/21 22:51 95 07/24/21 22:10 07/24/21 22:00 07/24/21 21:50 07/24/21 21:40 07/24/21 21:30 07/24/21 21:20 07/24/21 21:10 07/24/21 21:00 07/24/21 20:50 Laboratory Results Abnormal lab results 07/24/21 07/24/21 07/25/21 Range/Units 17:50 23:20 05:23 RBC (4.2-5.4) M/uL Lymph # (Auto) (1.2-3.4) K/uL BUN 26 H 28 H (7-18) mg/dl BUN/Creatinine Ratio 25.3 H 27.2 H (10-20) Glucose 131 H 140 H (70-99) mg/dl POC Glucose 242 H (70-99) mg/dl Hemoglobin A1c (4.5-5.6) % 07/25/21 07/25/21 07/25/21 Range/Units 05:23 05:23 07:13 RBC 4.18 L (4.2-5.4) M/uL Lymph # (Auto) 0.85 L (1.2-3.4) K/uL BUN (7-18) mg/dl BUN/Creatinine Ratio (10-20) Glucose (70-99) mg/dl POC Glucose 176 H (70-99) mg/dl Hemoglobin A1c 7.9 H (4.5-5.6) % Diagnostic Findings CT head-No significant change in a few scattered metastatic intracranial lesions with associated vasogenic edema. No acute infarct or intracranial hemorrhage identified. carotid doppler-Moderate to severe atherosclerotic plaque of the carotid bulbs redemonstrated without hemodynamically significant stenosis of the internal carotid arteries.. High-grade stenosis of the right proximal external carotid artery appears unchanged from the 09/11/2020 study. Normal antegrade vertebral flow bilaterally. Elevated blood pressure. MRI brain-�No acute intracranial abnormality. Mildly increased size of the intracranial metastatic lesions with progressively worsened associated vasogenic edema.. No new metastatic lesions are identified. carotid doppler-�Moderate to severe atherosclerotic plaque of the carotid bulbs redemonstrated without hemodynamically significant stenosis of the internal carotid arteries. High-grade stenosis of the right proximal external carotid artery appears unchanged from the 09/11/2020 study. Normal antegrade vertebral flow bilaterally. Elevated blood pressure.
[2021-07-25] MEDS ORDERED: dexAMETHasone 4 MG in SYRINGE 0 ML IV SCH ×2 (09:00→13:00)
--- NOTE | 2021-07-25 09:37 | Radiation OncologyConsultation ---
Date of Consultation July 25, 2021 Assessment & Plan (1) Non-small cell cancer of right lung: (2) Metastatic cancer to brain: Assessment: Ms. Nathan is a 81-year-old female who presents with a history of non-small cell lung carcinoma of the right lung status post right middle and lower lobe lobectomy by Dr. Covington on 07/11/2017. The patient did have pleural fluid cytology suspicious for metastatic carcinoma. The patient did proceed to undergo Keytruda in 2017 which stopped in December 2017 due to colitis. The patient received no further adjuvant therapy. The patient was subsequently diagnosed with metastatic disease to the brain involving 3 separate lesions in September 2020. The patient underwent fractionated stereotactic radiosurgery (5 fractions, 600 cGy per fraction, 3000 cGy, 10/04/2020). The patient was recently seen in the outpatient setting on 06/07/2021 and her MRI of the brain revealed potential progression of disease. The recommendation was to repeat MRI of the brain in 8 weeks. The patient is now admitted to the hospital due to strokelike symptoms which have resolved after treatment with dexamethasone. The patient did have an MRI of the brain with and without contrast (official report unavailable) which does suggest potential radiation necrosis versus progression of disease. Plan: 1. No radiation therapy treatment indicated at this point. 2. Neurosurgery referral in the outpatient setting offered. The patient would like to hold from seeing neurosurgeon at this point unless it is indicated after the next MRI of the brain. If the patient does develop symptoms prior to next MRI of the brain, I would recommend neurosurgery consultation. 3. Dexamethasone 4 mg p.o. twice daily for 2 weeks followed by Dexamethasone 2 mg daily for 2 weeks. Patient prefers lower doses of dexamethasone due to other issues including hyperglycemia. 4. MRI brain with and without contrast to be ordered in 8 weeks with follow-up. 5. Continue follow-up with neurology. 6. Continue follow-up with medical oncology. 7. Patient and family encouraged to call us with any further questions or concerns. History of Present Illness Attending Physician: Huber Rodriguez MD History of Present Illness 07/2017. Status post right middle and lower lobectomy by Dr. Covington. Non- small cell lung carcinoma. pT2aN1. Pleural fluid cytology suspicious for metastatic carcinoma. 2018. Patient treated with Keytruda which stopped on 12/09/2017 due to colitis. 05/11/2020. CT of chest. IMPRESSION: 1. Status post right lower and right middle lobe resection. Redemonstration of right pleural thickening with a trace right pleural effusion with interval development of gas within the right lower hemithorax which may be pleural or parenchymal in location. The etiology and significance of this finding is unclear. Short-term follow-up chest CT in 2 months is recommended. 2. Otherwise, unchanged appearance of the chest. No thoracic lymphadenopathy. 3. No change in multiple ill-defined bilateral upper lobe pulmonary opacities which favor a chronic inflammatory process. 4. Emphysema. 07/13/2020. CT of chest. IMPRESSION: 1. Cardiomegaly and emphysema with postoperative change from right-sided pulmonary resection. 2. There is no evidence of metastatic disease in the thorax. 3. Scattered subcentimeter pulmonary nodules are pathologically indeterminant and unchanged from prior studies. The appearance favors a chronic infectious/inflammatory etiology. 4. Trace pleural fluid is again seen at the right lung base. Gas within the pleural fluid seen on 05/11/2020 has resolved. 5. Additional findings as above. 09/11/2020. Patient presents to emergency room and admitted to hospital due to strokelike symptoms. 09/11/2020. CT of head. IMPRESSION: Vasogenic edema within the bilateral parietal lobes and left temporal lobe are suspicious for underlying intra-axial lesions, likely intracranial metastatic disease in this patient with history of known lung cancer. There is a 10 mm hemorrhagic focus within the right parietal lobe suggestive of hemorrhagic metastasis. There is resultant gyral expansion a nd sulcal effacement within these distributions without midline shift, hydrocephalus or herniation. Correlation with follow-up contrast enhanced MRI recommended. 09/12/2020. MRI brain. IMPRESSION: Three enhancing parenchymal lesions, the largest of which is a 1.8 x 1.6 cm left parietal lobe lesion. These lesions have moderate associated vasogenic edema and are consistent with metastases. 09/25/2020 to 10/04/2020. SBRT to brain. 3000 cGy in 5 fractions. 12/01/2020. MRI brain. IMPRESSION: 1. Interval decrease in the size of the previously described 3 bilateral enhancing parenchymal lesions. There is persistent but diminishing associated vasogenic edema. The findings are consistent with metastatic disease with a treatment response. 03/05/2021. Medical oncology follow-up. Return to clinic in 3 months. No systemic therapy at this point. 03/06/2021. MRI brain. IMPRESSION: 1. No acute intracranial abnormality. 2. Slight interval decrease in size of the three enhancing metastatic intra-axial lesions as above with decreased associated vasogenic edema. 3. No new lesions identified. 05/16/2021. CT of chest. IMPRESSION: 1. Emphysema without acute intrathoracic abnormality. 2. Postoperative changes of the right lung are redemonstrated. There is unchanged right basilar pleural thickening with chronic trace pleural effusion. 3. Scattered subcentimeter bilateral nodular opacities are also unchanged and are likely infectious or inflammatory. 4. No adenopathy. 5. Additional findings as above. 06/06/2021. MRI brain. IMPRESSION: Slight increase in size in the metastatic lesions within the right parietal and left temporal lobes with progressive vasogenic edema. Stable cystic metastatic focus within the left frontoparietal junction. No new metastatic foci identified. 06/07/2021. Radiation oncology follow-up. Repeat MRI brain in 8 weeks. 07/24/2021. Patient presents to emergency room with dizziness and hand clumsiness. Admitted to hospital for further work-up and evaluation. Dexamethasone administered and patient symptoms have improved. 07/24/2021. MRI brain. Formal report has not been dictated. Review of MRI of the brain in comparison to previous imaging studies shows potential progression of disease versus radiation necrosis. Allergies Allergy/AdvReac Type Severity Reaction Status Date / Time pembrolizumab [From [facility]] AdvReac Mild Diarrhea Verified 07/24/21 17:52 Home Medications Medication Instructions Recorded Confirmed Type cholecalciferol (vitamin D3) 25 1,000 unit PO QAM 04/27/18 07/24/21 History mcg (1,000 unit) capsule omeprazole 20 mg capsule,delayed 20 mg PO QAM 04/27/18 07/24/21 History release Oxygen Home #1 ea 02/04/20 06/07/21 History blood-glucose meter (OneTouch #1 ea 02/04/20 06/07/21 History Verio Flex Start) lancets 33 gauge (OneTouch Delica #100 ea 02/04/20 06/07/21 History Lancets) infliximab-dyyb 100 mg intravenous See Rx Instructions IV .COMPLEX 04/05/20 07/24/21 History solution (Inflectra) levothyroxine 25 mcg tablet 25 mcg PO DAILYBB 09/11/20 07/24/21 History glipizide 5 mg tablet 10 mg PO QAM tab 01/04/21 07/24/21 History linagliptin 5 mg tablet (Tradjenta) 5 mg PO QAM 01/04/21 07/24/21 History metoprolol succinate 25 mg 50 mg PO QAM tab 01/04/21 07/24/21 History tablet,extended release 24 hr furosemide 20 mg tablet 20 mg PO QAM 01/30/21 07/24/21 History lorazepam 0.5 mg tablet 0.5 mg PO HS PRN 01/30/21 07/24/21 History rosuvastatin 10 mg tablet 10 mg PO HS 01/30/21 07/24/21 History levetiracetam 750 mg tablet 750 mg PO BID tab 06/07/21 07/24/21 History aspirin 81 mg tablet,delayed 81 mg PO DAILY 07/24/21 07/24/21 History release Patient History Medical History (Updated 07/25/21 @ 09:52 by Patricia Villeda MD) Anemia chronic iron deficiency anemia in setting of ulcerative colitis (does receive routine iron infusions), under surveillance of [facility] hematology/GI. 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 MRI imaging and radiation treatments x5. Nocturnal hypoxia 2L/min NC HS Non-small cell cancer of right lung (~2016) s/p lower and middle lung lobe resection (2016), no chemo or xrt PVCs (premature ventricular contractions) Seizure disorder grand-mal. last seizure ~2018. follows with neurology ([place] [facility]) Ulcerative colitis Inflectra treatments - follows with [facility] GI Surgical History History of breast biopsy History of colonoscopy History of lobectomy of lung Right VATS middle and lower lobectomy: 07/11/17: Grade 2 view, MAC#3, BANG History of repair of rotator cuff History of tonsillectomy History of tubal ligation S/P right rotator cuff repair Status post right knee replacement Family History Sister Family history of diabetes mellitus Other Heart disease No family history of adverse response to anesthesia Social History Smoking Status: Former smoker Second Hand Exposure: No; Do You Dip or Chew Tobacco: No; Hx Alcohol Use: No Hx Substance Use: No Preferred Language: Maltese Communication Ability: Effective Visual Impairment: No Limitations Gold Layer Required: No Beliefs That Will Affect Care: None marital status: / Current Living Situation: Alone Current Living Situation Comment: [email or web address] Other Information That Helps Us Care for You: No Feels Safe at Home: Yes Safety Concerns: Feels Safe At This Time Assistive Devices: Oxygen - at Night Review of Systems Review of Systems: Patient doing better since she was admitted to hospital after steroids. Currently asymptomatic. Physical Exam Constitutional: WD/WN, vitals as above Psychiatric: A+Ox3, euthymic affect
[2021-07-25] MEDS: dexAMETHasone 4 MG TAB PO SCH (11:00)
--- NOTE | 2021-07-25 12:49 | Magnetic Resonance Report ---
MR brain wo/w con HISTORY: 81 years-old Female cva? brain mets' left UE numbness, acute strokelike symptoms. History o f lung cancer with intracranial metastasis. COMPARISON: Head CT of same day, brain MRI 06/06/2021. TECHNIQUE: Multiplanar and multisequence MRI of the brain was obtained both with and without the use of 5 cc Gadavist. FINDINGS: Cloth Bleaching Range Operator Chief localizer images demonstrate no gross extracranial abnormality. There is no restricted diffusio n to suggest acute or subacute infarct. The midline structures appear unremarkable. No acute intracra nial hemorrhage, midline shift or hydrocephalus. Stable cystic peripherally enhancing focus in the left frontoparietal junction on image 16 series 9 m easuring 1.2 cm is similar in size from prior however the solid component along the inferior margin h as progressed. 1.2 x 1.0 x 1.7 cm enhancing lesion within the right parietal lobe on image 13 of seri es 9 has slightly increased in size from prior were it measured 1.0 x 0.9 x 1.2 cm on the 06/06/2021 exam. 7 x 7 mm enhancing lesion of the left temporal lobe on image 10 of series 9 previously measured 7 x 6 mm. There is progressively worsened vasogenic edema surrounding these metastatic foci. No new lesions are identified. Age-related involutional changes. Mild T2/FLAIR hyperintensities throughout the white matter suggest chronic microvascular ischemic disease. The cerebral venous sinuses and major arterial flow voids bibi ear patent. The mastoid air cells are clear. Minimal mucosal thickening of the paranasal sinuses. Helen or bilateral lens repair. IMPRESSION: 1. No acute intracranial abnormality. 2. Mildly increased size of the intracranial metastatic lesions with progressively worsened associate d vasogenic edema. 3. No new metastatic lesions are identified. ACT 112: Negative or not required by law. The above report was generated using voice recognition software. It may contain grammatical, syntax o r spelling errors. Dictated: 07/25/2021 7:24 AM Transcribed: 07/25/2021 7:58 AM Briana [id number] [email or web address] Ann Electronically signed by: Paul Solis M.D. 07/25/2021 12:48 PM
[2021-07-25 14:43] LABS: Appearance Urine Clear (Clear); Bacteria Urine Automated Negative (Negative); Bilirubin Urine Negative (Negative); Blood Urine Negative (Negative); Cast Urine Automated 0 /lpf (0-5); Color Urine Yellow; Epithelial Cell Urine Auto 0-5 /lpf (0-5); Glucose Urine UA Negative (Negative); Ketones Urine Negative (Negative); Leukocyte Esterase Urine Negative (Negative); Nitrite Urine Negative (Negative); Protein Urine 2+ (Negative); RBC Urine Automated 0-4 /hpf (0-4); Specific Gravity Urine 1.012 (1.000-1.030); Urobilinogen Urine Negative (Negative); WBC Urine Automated 0 /hpf (0-5)
--- NOTE | 2021-07-25 22:01 | Hospitalist Progress Note ---
Date of Service July 25, 2021 Assessment & Plan (1) Numbness: Plan: Present on admission with left upper extremity numbness:� Possible related to brain mets initial CT scan of the head, no acute findings and whole brain mets seen. MRI brain showed mildly increased size of the intracranial metastatic lesions with progressively worsened associated vasogenic edema. Carotid doppler showed moderate to severe atherosclerotic plaque of the carotid bulbs redemonstrated without hemodynamically significant stenosis of the internal carotid arteries. High-grade stenosis of the right proximal external carotid artery appears un changed from the 09/11/2020 study. ECHO showed grade 1 diastolic dysfunction. No significant valvular pathology. Ejection fraction 55 to 60%. Case discussed with Oncology radiation recommended dexamethasone is to be 4 mg daily x 2 weeks then 2 mg daily for 2 weeks Neuro on board recommended to continue dexamethasone as per radiation oncology recommendation and Keppra 750 twice daily Consider outpatient Neurosurgery Clinically stable Metastatic lung cancer status post middle and lower lobe lobectomy.� Received Keytruda in the past and also for brain mets she received fractionated stereotactic radiosurgery but was not able to tolerate Follow up with Oncology outpatient History of diabetes Most recent hemoglobin A1c 7.9 on 07/25 Outpatient p.o. diabetic meds have been on hold Currently on Lantus and insulin sliding scale during the hospital course Will need to monitor blood sugar closely while on Decadron p.o. Discussed with patient about adding short acting insulin before each meal while on the Decadron but patient said she will rather discuss it with her PCP at the next follow-up appointment if blood sugar uncotrolled Seizures:� Continue Keppra 750 twice daily Hypothyroidism: Continue Synthroid. Hypertension:� Continue metoprolol Hyperlipidemia:� Continue statin. GERD Continue omeprazole. Hx of� supraventricular tachycardia:� On metoprolol. History of transient ischemic attack On statin and aspirin. Deep venous thrombosis prophylaxis:� On SCDs CODE STATUS FULL CODE Admission and Anticipated Discharge Date Admission Date: July 24, 2021 Subjective Pt was seen and examined for follow up of numbness in her left upper extremity Lying in bed with no distress Pt said that she feels much better She said her numbness improves Denies any chest pain, palpitation, dizziness and SOB Review of Systems Review of Systems: All systems reviewed & are unremarkable except as noted in Subjective Physical Exam Physical Exam: General- No acute distress Head- atraumatic Eyes- PERRL, EOMI, ENT- oropharynx clear Neck- supple, no JVD Lungs- clear to auscultation Heart- regular rhythm; no murmur Abdomen- normal bowel sounds, soft, nontender Extremities- no calf tenderness Neuro- alert, oriented x 3; PERRL, EOMI; no facial palsy; no dysarthria Skin- warm & dry Results & Data Results & Data ([facility]) Vital Signs (Past 12 Hours) Vital Signs Temp Pulse Pulse Resp BP Pulse Ox 07/25/21 19:19 36.8 C 64 16 151/64 H 98 07/25/21 15:19 36.4 C L 67 16 127/66 97 07/25/21 15:07 82 07/25/21 11:58 36.7 C 95 H 19 147/69 H 93
[2021-07-26] MEDS: LEVOTHYROXINE SODIUM 25 MCG TABLET PO SCH (05:45)
[2021-07-26] MEDS: METOPROLOL SUCC 50MG EXT REL TAB PO SCH (07:46)
[2021-07-26] MEDS: PANTOprazole 40 MG TAB PO SCH (07:46)
[2021-07-26] MEDS: FUROSEMIDE 20 MG TAB PO SCH (07:46)
[2021-07-26] MEDS: ASPIRIN 81 MG ECTAB PO SCH (07:46)
[2021-07-26] MEDS: dexAMETHasone 4 MG TAB PO SCH (07:47)
[2021-07-26] MEDS: CHOLECALCIFEROL 1,000 UNITS 25 MCG TAB PO SCH (07:47)
[2021-07-26] MEDS: levETIRAcetam 250 MG TAB PO SCH (07:47)
[2021-07-26] MEDS: INSULIN ASPART PER UNIT SC SCH ×2 (07:59→12:30)
[2021-07-26] MEDS: INSULIN GLARGINE SOLOSTAR 100 UNITS/ML 3 ML PEN SC SCH (08:00)
[2021-07-26 08:15] LABS: Basophils # (auto) 0.01 K/uL (0-0.2); Basophils % (auto) 0.1 %; Eosinophils # (auto) 0.02 K/uL (0-0.5); Eosinophils % (auto) 0.2 %; Hematocrit (blood only) 37.8 % (37-47); Hemoglobin 12.6 g/dL (12.0-16.0); Immature Granulocytes # (auto) 0.02 K/uL (0.00-0.02); Immature Granulocytes % (auto) 0.2 %; Lymphocytes # (auto) 1.48 K/uL (1.2-3.4); Lymphocytes % (auto) 16.5 %; Mean Corpuscular Hemoglobin 30.6 pg (25-34); Mean Corpuscular Hgb Conc 33.3 g/dL (32-36); Mean Corpuscular Volume 91.7 fL (80-100); Mean Platelet Volume 9.9 fL (7.4-10.4); Monocytes # (auto) 0.78 K/uL (0.11-0.59); Monocytes % (auto) 8.7 %; Neutrophils # (auto) 6.68 K/uL (1.4-6.5); Neutrophils % (auto) 74.3 %; Platelet Count 328 K/uL (130-400); RDW Coefficient of Variation 13.3 % (11.5-14.5); RDW Standard Deviation 44.9 fL (36.4-46.3); Red Blood Count 4.12 M/uL (4.2-5.4); White Blood Count 8.99 K/uL (4.8-10.8)
[2021-07-26 08:47] LABS: BUN Creatinine Ratio 27.8 (10-20); Calcium 9.4 mg/dl (8.5-10.1); Creatinine Clr Calc Pharmacy 32.3 ml/min; Est GFR (African American) 49.8 ml/min
[2021-07-26 11:48] VITALS: PULSE 52; TEMP 98.6; O2SAT 97
[2021-07-26] MEDS ORDERED: STROKE PATIENT DISCHARGE STA (14:05)
[2021-07-26 14:20] VITALS: BP 136/66
--- NOTE | 2021-07-27 19:24 | Electrocardiogram Report ---
Test Reason : Blood Pressure : / mmHG Vent. Rate : 065 BPM Atrial Rate : 065 BPM P-R Int : 180 ms QRS Dur : 096 ms QT Int : 444 ms P-R-T Axes : 048 067 021 degrees QTc Int : 461 ms Normal sinus rhythm Normal ECG When compared with ECG of 11-SEP-2020 19:26, Vent. rate has decreased BY 34 BPM T wave inversion less evident in Inferior leads Confirmed by Brian Bailey ([id number]) on 07/27/2021 7:24:10 PM Referred By: REFERRED SELF Confirmed By:Brian Bailey
--- NOTE | 2021-08-07 18:51 | Discharge Summary ---
Date of Service July 26, 2021 Admission HPI Per Admitting Provider CHIEF COMPLAINT:� Numbness in her left upper extremity and some lightheadedness. � HISTORY OF PRESENT ILLNESS:� A 81-year-old female with past medical history significant for type 2 diabetes, hyperlipidemia, hypothyroidism, COPD, malignant pleural effusion, history of peripheral vascular disease, nonsustained ventricular tachycardia, hypertension, seizures, iron deficiency anemia, history of ischemic stroke.� The patient also has history of non-small cell cancer of the right lung and also status post middle and lower lobe lobectomy on 07/11/2017, also pleural fluid suspicious for cancer.� The patient hadt Keytruda in 2017, which was stopped in December 2017 due to colitis.� Received no further adjuvant therapy and she was diagnosed with metastatic brain disease in September 2020, underwent fractionated stereotactic radiosurgery. Currently on Keppra.� Follows with neurology and medical oncology and radiation oncology.� Currently lives alone, has sisters locally.� Presents with left upper extremity numbness, started at 3:30 p.m.� She was in the house, going to the kitchen.� She could not hold things in the left hand, that is the reason she came here. Initial workup with a CT of the head showed no significant change with scattered metastatic intracranial lesions and also with vasogenic edema. No acute infarct identified.� ER spoke with neurology, and recommended to do MRI scan. Currently resting comfortably, hemodynamically stable.� Says she was able to walk in the ER okay, but she still feels some slight lightheadedness.� Speech is okay.� Denies any headache.� Vision is okay.� No earache, no runny nose, no sore throat, no cough, no difficulty swallowing.� Appetite is okay.� No chest pain, no shortness of breath, no nausea, no abdominal pain. Normal bowel and bladder movements.� No hematuria or blood in the stools or black stools.� No swelling in the legs , No rash. Still has numbness in the left upper extremity. Admission Exam Per Admitting Provider GENERAL:� The patient is of moderate build, not in acute distress. VITAL SIGNS:� Temperature 36.8, pulse 78, respiratory rate 18, blood pressure 171/89, oxygen 94% on room air. HEENT:� Pupils equal, round and reactive to light.� Oral mucosa moist. NECK:� No JVD, no neck masses. CARDIOVASCULAR:� S1 and S2 heard.� Regular rate and rhythm.� No murmur, no gallop. RESPIRATORY SYSTEM:� Normal AP diameter.� No accessory muscle use.� No wheezing, no crackles. ABDOMEN:� Soft, bowel sounds present, nontender, nondistended. CENTRAL NERVOUS SYSTEM:� Alert and oriented.� Speech is clear.� No facial droop.� Power is 5/5 in all extremities except for left upper extremity, power is 4/5.� Some slight pronator drift on the left upper extremity.� Could not lift the left upper extremity above the head and coordination of movements abnormal in the left upper extremity. EXTREMITIES:� No edema, no erythema. Principal Diagnosis Numbness Metastatic lung cancer History of diabetes Seizures:� Hypothyroidism: Hypertension:� Hyperlipidemia:� GERD Hx of� supraventricular tachycardia:� Discharge Exam General- No acute distress Head- atraumatic Eyes- PERRL, EOMI, ENT- oropharynx clear Neck- supple, no JVD Lungs- clear to auscultation Heart- regular rhythm; no murmur Abdomen- normal bowel sounds, soft, nontender Extremities- no calf tenderness Neuro- alert, oriented x 3; PERRL, EOMI; no facial palsy; no dysarthria Skin- warm & dry Discharge Data Allergies Allergy/AdvReac Type Severity Reaction Status Date / Time pembrolizumab [From Keytruda] AdvReac Mild Diarrhea Verified 07/24/21 17:52 Consultations 07/24/21 19:53 ED Decision to Admit Stat 07/25/21 07:44 Consult Radiation Oncology Routine 07/25/21 08:00 Consult Neurology Routine Ordered Studies 07/24/21 17:33 CT head/brain wo con Stat 07/24/21 22:51 MR brain wo/w con Urgent US carotid doppler BI Routine US carotid doppler BI CLINICAL HISTORY: 81 years-old Female with cva.� Acute strokelike symptoms COMPARISON:� Brain MRI 07/24/2021, CTA neck 09/11/2020 TECHNIQUE:� Multiple real time sonographic images of the carotid bifurcations were obtained assessing flaherty scale, color Doppler and spectral wave form appearance FINDINGS: RIGHT CAROTID:� The peak systolic velocity measured within the right ICA is85.4 cm/sec.� The end diastolic velocity measured 22.9 cm/sec.� The ICA to CCA ratio measured 1.9 which correlates with a stenosis of 0-50%. There is moderate to extensive atherosclerotic plaque of the right carotid bulb with high-grade stenosis of the proximal external carotid artery with elevated peak systolic velocities measuring up to 634 cm/s. Reversal of flow is noted within a proximal branch of the external carotid artery. LEFT CAROTID:� The peak systolic velocity measured within the right ICA is78.9 cm/sec.� The end diastolic velocity measured 24.1 cm/sec. The ICA to CCA ratio measured 1.1 which correlates with a stenosis of 0-50%. There is moderate to severe atherosclerotic plaque of the left carotid bulb. Visualization of the proximal left ICA secondary to plaque. There is normal antegrade vertebral flow bilaterally. Blood pressure on the left is measured at 177/71 and on the right is measured at 190/75. IMPRESSION:� 1. Moderate to severe atherosclerotic plaque of the carotid bulbs redemonstrated without hemodynamically significant stenosis of the internal carotid arteries. 2. High-grade stenosis of the right proximal external carotid artery appears unchanged from the 09/11/2020 study. 3. Normal antegrade vertebral flow bilaterally. 4. Elevated blood pressure. ACT 112: Negative or not required by law. The above report was generated using voice recognition software. It may contain grammatical, syntax or spelling errors. Electronically signed by:� Paul Solis M.D. 07/25/2021 7:19 AM Dictated:�07/25/21713 Transcribed: 07/25/21713 MR brain wo/w con HISTORY:� 81 years-old Female cva? brain mets' left UE numbness, acute strokelike symptoms. History of lung cancer with intracranial metastasis. COMPARISON: Head CT of same day, brain MRI 06/06/2021. TECHNIQUE: Multiplanar and multisequence MRI of the brain was obtained both with and without the use of 5 cc Gadavist. FINDINGS: [employer] localizer images demonstrate no gross extracranial abnormality. There is no restricted diffusion to suggest acute or subacute infarct. The midline structures appear unremarkable. No acute intracranial hemorrhage, midline shift or hydrocephalus. Stable cystic peripherally enhancing focus in the left frontoparietal junction on image 16 series 9 measuring 1.2 cm is similar in size from prior however the solid component along the inferior margin has progressed. 1.2 x 1.0 x 1.7 cm enhancing lesion within the right parietal lobe on image 13 of series 9 has slightly increased in size from prior were it measured 1.0 x 0.9 x 1.2 cm on the 06/06/2021 exam. 7 x 7 mm enhancing lesion of the left temporal lobe on image 10 of series 9 previously measured 7 x 6 mm. There is progressively worsened vasogenic edema surrounding these metastatic foci. No new lesions are identified. Age-related involutional changes. Mild T2/FLAIR hyperintensities throughout the white matter suggest chronic microvascular ischemic disease. The cerebral venous sinuses and major arterial flow voids appear patent. The mastoid air cells are clear. Minimal mucosal thickening of the paranasal sinuses. Prior bilateral lens repair. IMPRESSION: 1. No acute intracranial abnormality. 2. Mildly increased size of the intracranial metastatic lesions with progressively worsened associated vasogenic edema. 3. No new metastatic lesions are identified. ACT 112: Negative or not required by law. The above report was generated using voice recognition software. It may contain grammatical, syntax or spelling errors. Dictated:� 07/25/2021 7:24 AM Transcribed:� 07/25/2021 7:58 AM Briana [id number] ORQUIDEA_Lee Ann Electronically signed by:� Paul Solis M.D. 07/25/2021 12:48 PM Dictated:�07/25/21 0724 Transcribed: 07/25/[address] DOSE: 884.08 mGy.cm HISTORY: Dizziness R hand clumsy, history of brain mets TECHNIQUE: Multiaxial CT images of the head were performed without the use of intravenous contrast. Automated exposure control was utilized for this study.� A dose lowering technique was utilized adhering to the principles of ALARA. Comparison: Brain MRI 06/06/2021. Findings: The paranasal sinuses and mastoid air cells are clear. Focal areas of vasogenic edema seen within the left temporal lobe, left frontoparietal junction, and right parietal lobe are similar to the prior study and are consistent with the patient's known metastatic foci. The 11 mm cystic metastatic focus within the left frontoparietal junction is seen on image 25 and the 11 mm metastatic nodule within the right parietal lobe is seen on image 22. A left temporal lobe metastatic focus is too small to evaluate by this modality. No new masses are new areas of vasogenic edema identified to suggest progressive metastatic disease. The ventricles are normal in size. No hematoma, midline shift, acute infarct. Impression: No significant change in a few scattered metastatic intracranial lesions with associated vasogenic edema. No acute infarct or intracranial hemorrhage identified. ACT 112: Negative or not required by law. Electronically signed by:� James Villarreal M.D. 07/24/2021 6:43 PM Dictated:�07/24/[id number] Transcribed: 07/24/211837 Hospital Course (1) Numbness: Present on admission with left upper extremity numbness:� Possible related to brain mets initial CT scan of the head, no acute findings and whole brain mets seen. MRI brain showed mildly increased size of the intracranial metastatic lesions with progressively worsened associated vasogenic edema. Carotid doppler showed moderate to severe atherosclerotic plaque of the carotid bulbs redemonstrated without hemodynamically significant stenosis of the internal carotid arteries. High-grade stenosis of the right proximal external carotid artery appears unchanged from the 09/11/2020 study. ECHO showed grade 1 diastolic dysfunction. No significant valvular pathology. Ejection fraction 55 to 60%. Case discussed with Oncology radiation recommended dexamethasone is to be 4 mg daily x 2 weeks then 2 mg daily for 2 weeks Neuro on board recommended to continue dexamethasone as per radiation oncology recommendation and Keppra 750 twice daily Consider outpatient Neurosurgery Clinically stable Metastatic lung cancer status post middle and lower lobe lobectomy.� Received Keytruda in the past and also for brain mets she received fractionated stereotactic radiosurgery but was not able to tolerate Follow up with Oncology outpatient History of diabetes Most recent hemoglobin A1c 7.9 on 07/25 Outpatient p.o. diabetic meds have been on hold Currently on Lantus and insulin sliding scale during the hospital course Will need to monitor blood sugar closely while on Decadron p.o. Discussed with patient about adding short acting insulin before each meal while on the Decadron but patient said she will rather discuss it with her PCP at the next follow-up appointment if blood sugar uncotrolled Seizures:� Continue Keppra 750 twice daily Hypothyroidism: Continue Synthroid. Hypertension:� Continue metoprolol Hyperlipidemia:� Continue statin. GERD Continue omeprazole. Hx of� supraventricular tachycardia:� On metoprolol. History of transient ischemic attack On statin and aspirin. Deep venous thrombosis prophylaxis:� On SCDs CODE STATUS FULL CODE Total Time Total Time Spent Total Time Spent (In Minutes): 35 minutes Discharge Plan Discharge Items Patient Disposition: Home - Home Health Services Reason For Visit: Dizziness Discharge Diagnosis: Numbness Metastatic lung cancer History of diabetes Seizures:� Hypothyroidism: Hypertension:� Hyperlipidemia:� GERD Hx of� supraventricular tachycardia:� Activity: Resume your previous activity Non-emergency contact: Primary Care Provider Call non-emergency contact if: you have any medication questions Follow-up/Referrals: Danny Ibarra MD [Primary Care Provider] - 08/02/21 11:00 am (Date & Time 08/02/2021 11:00 AM Provider Luciana Daugherty MD Department General Internal Medicine [facility] ) Yuriy Villeda MD [Surgeon] - 07/27/21 2:15 pm (Date & Time 07/27/2021 �2:15 PM Provider Yuriy Villeda MD Department Hematology/Oncology [facility] ) Diet: Carb Consistent or DM2 Addtl Attending Provider Instructions: Follow up with your oncology Dr. Villeda 07/27/2021 �@ 2:15 PM Hematology/Oncology [facility] Follow up with your primary care provider Dr. Daugherty 08/02/2021 @ 11:00 AM General Internal Medicine [facility] Continue monitor your your blood sugar while on decadron Continue physical therapy fall precaution Pending Studies at Discharge: No Stand-Alone Forms: My [facility] [employer], Smoking Cessation Medications and DC Order Prescriptions: New dexamethasone 2 mg tablet 2 mg PO UD Qty: 42 RF: 0 Continued glipizide 5 mg tablet 10 mg PO QAM RF: 0 Tradjenta 5 mg tablet 5 mg PO QAM RF: 0 (DME) lancets [OneTouch Delica Lancets] 33 gauge misc See Rx Instructions .ROUTE .MEDSUPPLY Qty: 100 RF: 0 (DME) blood-glucose meter [OneTouch Verio Flex Start] Kit See Rx Instructions .ROUTE .MEDSUPPLY Qty: 1 RF: 0 (DME) Oxygen Home Liters Per Minute See Rx Instructions .ROUTE .MEDSUPPLY Qty: 1 RF: 0 Inflectra 100 mg recon soln See Rx Instructions IV .COMPLEX RF: 0 omeprazole 20 mg Capsule,Delayed Release(Dr/Ec) 20 mg PO QAM RF: 0 cholecalciferol (vitamin D3) 1,000 unit Capsule 1,000 unit PO QAM RF: 0 levothyroxine 25 mcg tablet 25 mcg PO DAILYBB RF: 0 levetiracetam 750 mg tablet 750 mg PO BID RF: 0 metoprolol succinate 25 mg tablet extended release 24 hr 50 mg PO QAM RF: 0 furosemide 20 mg Tablet 20 mg PO QAM RF: 0 lorazepam 0.5 mg Tablet 0.5 mg PO HS PRN (Reason: Anxiety) RF: 0 rosuvastatin 10 mg Tablet 10 mg PO HS RF: 0 aspirin 81 mg Tablet,Delayed Release (Dr/Ec) 81 mg PO DAILY RF: 0 Discharge Orders: Discharge Order (Routine); Ordered 07/26/21 Ordered By: Huber Keenan/Other Patient Handouts: Loss of Sensation: Safety Tips, High Blood Sugar (Hyperglycemia), Hypoglycemia (Low Blood Sugar), Managing Type 2 Diabetes Admission Data Admit Date/Time: 07/24/21 20:43 Attending Provider: Huber Rodriguez Admit Provider: Nadir Angeles Primary Care Provider: Danny Ibarra Other Providers: Nadir Angeles ; Allen Connor ; Franki Majano ; Patricia Villeda Other Interventions: Discharge Summary Assessment (RN) Last Done: 07/26/21 14:13
== END 2021-07-26 14:49 | disposition home health service (06) | DRG 54 ==
LOC: ED 17:02 → SUATTDRO 20:43 → 2S 20:43
DX: G93.6 Cerebral edema; G40.89 Other seizures; Z79.82 Long term (current) use of aspirin; Z79.84 Long term (current) use of oral hypoglycemic drugs; Z90.2 Acquired absence of lung [part of]; R27.8 Other lack of coordination; Z86.73 Personal history of transient ischemic attack (TIA), and cerebral infarction without residual deficits; C34.91 Malignant neoplasm of unspecified part of right bronchus or lung; D50.9 Iron deficiency anemia, unspecified; E11.51 Type 2 diabetes mellitus with diabetic peripheral angiopathy without gangrene; C79.31 Secondary malignant neoplasm of brain; Z83.3 Family history of diabetes mellitus; R20.0 Anesthesia of skin; I10 Essential (primary) hypertension; K51.90 Ulcerative colitis, unspecified, without complications; K21.9 Gastro-esophageal reflux disease without esophagitis; E03.9 Hypothyroidism, unspecified; Z88.8 Allergy status to other drugs, medicaments and biological substances; Z96.651 Presence of right artificial knee joint; Z87.891 Personal history of nicotine dependence

== ENCOUNTER 2021-12-04 19:06 | Inpatient (IN) ==
--- NOTE | 2021-12-04 19:27 | Emergency Department Note ---
Impression & Plan Brain TIA, Acute hypokalemia ED Provider Note NAME: JOSEE Valdivia FRIDAY AGE: 81 SEX: F : 1940 ARRIVES VIA: Ambulance INFORMANT: Patient ED PROVIDER(S): Viet Martel DO CHIEF COMPLAINT: ledt arm weakness HPI: Patient is a 81-year-old female with past medical history of hypertension, diabetes, nontraumatic brain bleed, and metastatic cancer to the brain and presents the ER for left arm weakness. She notes she has a previous stroke. Left arm weakness started around 3 PM today. 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 She denies all other complaints. No headache or change in vision. No chest pain or shortness of breath. No nausea, vomiting, or diarrhea. No dysuria urgency or frequency. No other exacerbating or remitting factors. She notes she was undergoing recent radiation. No recent chemo. She had previous lung cancer with resection. ROS: See above HPI for pertinent positives & negatives. A total of 10 systems reviewed and were otherwise negative. PAST MEDICAL HISTORY:See Below PAST SURGICAL HISTORY:See Below FAMILY HISTORY:See Below SOCIAL HISTORY:See Below HOME MEDICATIONS:See Below ALLERGIES:See Below VITALS:See Below PHYSICAL EXAMINATION: GENERAL: Sitting up in bed, alert, well appearing, well nourished, no distress, non-toxic EYE EXAM: normal conjunctiva. PERRL and EOM's grossly intact. OROPHARYNX: no exudate, no erythema, lips, buccal mucosa, and tongue normal and mucous membranes are moist NECK: supple, no nuchal rigidity, no adenopathy, non-tender LUNGS: Clear to auscultation. Normal chest wall mechanics HEART: no murmurs, S1 normal and S2 normal ABDOMEN: abdomen soft, non-tender, normo-active bowel sounds, no masses, no rebound or guarding. BACK: Back is symmetrical on inspection and there is no deformity, no midline tenderness, no CVA tenderness. SKIN: no rashes and no bruising UPPER EXTREMITIES: upper extremities are grossly normal. LOWER EXTREMITIES: No pitting edema. NEURO EXAM: Normal sensorium, cranial nerves II-XII intact, normal speech, flexion-extension right shoulder elbow wrist grasp 5 out of 5. Weakness with the left grasp as well as flexion extension of the elbow wrist and shoulder is a 4 out of 5. No weakness of the bilateral lower extremities. Positive drift on the left. MEDICAL DECISION MAKING: Patient is a 81-year-old female who presents the ER for left arm weakness which resolved. IV was established with understanding. Labs showed no significant leukocytosis or anemia. INR unremarkable. BMP with mild hypokalemia. Glucose was slightly up at 140. LFTs were unremarkable. Magnesium was low at 1.5. Troponin was detectable at 17. COVID-negative. CT head shows edema likely secondary to an old stroke and questionable mass. Telestroke was used and they recommended MRIs with contrast and admission. Patient was updated bedside and admitted to the hospital for further work-up Triage Nursing notes reviewed. Limited review of prior medical records performed Vital Signs: reviewed and remarkable for HTN Differential diagnosis: Differential Diagnosis includes but is not limited to ischemic Stroke, hemorrhagic stroke, bells palsy, mass, neoplasm, migraine headache, seizure, subarachnoid hemorrhage, TIA, and transient global amnesia. ER treatment provided: See below Diagnostics interpreted by me: ECG: Sinus rhythm rate 83 Normal axis No PVCs Nonspecific ST wave changes in the inferior leads QTC 472 Cardiac Monitoring: An order was placed for continuous cardiac monitoring. The monitor shows a rate of 80 with sinus rhythm. Laboratory studies: As stated above and show below. Imaging studies: CT of the head shows large amount of vasogenic edema Consultation(s): Discussed with Mile coyle who recommended admission MRIs. Discussed with Sunita Cast who admit the patient for further work-up Procedures: none Critical Care: None Past Med/Surg History Medical History (Updated 12/05/21 @ 00:51 by Viet Martel DO) Anemia chronic iron deficiency anemia in setting of ulcerative colitis (does receive routine iron infusions), under surveillance of [facility] hematology/GI. Arthritis Clumsiness Depression Diabetes mellitus, type 2 NIDDM Dizziness High cholesterol History of radiation therapy Hypertension Hypothyroidism Left knee DJD Left knee DJD Metastasis to brain dx 09/2020. MRI imaging and radiation treatments x5. Metastatic cancer to brain Nocturnal hypoxia 2L/min NC HS Non-small cell cancer of right lung (~2016) s/p lower and middle lung lobe resection (2017), no chemo or xrt PVCs (premature ventricular contractions) Ulcerative colitis Inflectra treatments - follows with [facility] GI Surgical History History of breast biopsy History of colonoscopy History of lobectomy of lung Right VATS middle and lower lobectomy: 07/11/17: Grade 2 view, MAC#3, BANG History of repair of rotator cuff History of tonsillectomy History of tubal ligation S/P right rotator cuff repair Status post right knee replacement Family History (Updated 12/04/21 @ 21:57 by Sunita Cast DO) Sister Family history of diabetes mellitus Mother Alzheimer disease Father Myocardial infarction Other Heart disease No family history of adverse response to anesthesia Social History Smoking Status: Former smoker Tobacco Type: Cigarettes Second Hand Exposure: No; Hx Alcohol Use: No Hx Substance Use: No Preferred Language: Urdu Communication Ability: Effective Visual Impairment: No Limitations Tap Puller Required: No Beliefs That Will Affect Care: None marital status: / Current Living Situation: Alone Current Living Situation Comment: [facility] How many Children do You have: 0 Feels Safe at Home: Yes Assistive Devices: None Allergies Allergies Allergy/AdvReac Type Severity Reaction Status Date / Time pembrolizumab [From Keytruda] AdvReac Mild Diarrhea Verified 12/04/21 20:50 Home Meds Home Medications Medication Instructions Recorded Confirmed cholecalciferol (vitamin D3) 25 1,000 unit PO QAM 04/27/18 12/04/21 mcg (1,000 unit) capsule omeprazole 20 mg capsule,delayed 20 mg PO QAM 04/27/18 12/04/21 release blood-glucose meter (OneTouch #1 ea 02/04/20 12/04/21 Verio Flex Start) lancets 33 gauge (OneTouch Delica #100 ea 02/04/20 12/04/21 Lancets) infliximab-dyyb 100 mg intravenous See Rx Instructions IV .COMPLEX 04/05/20 12/04/21 solution (Inflectra) levothyroxine 25 mcg tablet 25 mcg PO DAILYBB 09/11/20 12/04/21 linagliptin 5 mg tablet (Tradjenta) 5 mg PO QAM 01/04/21 12/04/21 furosemide 20 mg tablet 20 mg PO QAM 01/30/21 12/04/21 lorazepam 0.5 mg tablet 0.5 mg PO HS PRN 01/30/21 12/04/21 rosuvastatin 10 mg tablet 10 mg PO HS 01/30/21 12/04/21 levetiracetam 750 mg tablet 750 mg PO BID tab 06/07/21 12/04/21 aspirin 81 mg tablet,delayed 81 mg PO DAILY 07/24/21 12/04/21 release Oxygen Home #1 ea 10/02/21 12/04/21 amlodipine 2.5 mg tablet 2.5 mg PO DAILY 10/02/21 12/04/21 denosumab 60 mg/mL subcutaneous 60 mg SUBCUT Q6MO ml 10/02/21 12/04/21 syringe (Prolia) glipizide 5 mg tablet 15 mg PO BID tab 10/02/21 12/04/21 albuterol sulfate 90 mcg/actuation 2 puff INHALATION UD PRN 12/04/21 12/04/21 aerosol inhaler (Ventolin HFA) sertraline 25 mg tablet 25 mg PO DAILY 12/04/21 12/04/21 Previous Rx's Medication Instructions Recorded amoxicillin 500 mg tablet 2,000 mg PO ONCE PRN #4 tab 08/28/21 Results & Data (ED) Vital Signs Vital Signs - 24 hr 12/04/21 19:11 12/04/21 19:13 12/04/21 19:20 Temperature 36.8 C Temperature Source Oral Pulse Rate 84 84 88 Pulse Rate [Apical] 77 Pulse Rate from SpO2 Sensor 80 Pulse Rhythm Regular Pulse Strength Normal Respiratory Rate 29 H 19 23 Respiratory Effort / Characteristics Non-Labored Spontaneous Respiratory Depth Normal Respiratory Pattern Regular Blood Pressure 177/86 H Blood Pressure [Right Arm] 184/86 H Blood Pressure Mean 116 Blood Pressure Mean [Right Arm] 118 Blood Pressure Position Sitting Pulse Oximetry 97 95 Oxygen Delivery Method Room Air Oxygen Flow Rate Sepsis Recent Fever Within 48 Hours No Sepsis New/Unexplained Change in Mental Status No Sepsis Action Taken by Nursing No Action Required 12/04/21 19:40 12/04/21 19:42 Temperature Temperature Source Pulse Rate 85 Pulse Rate [Apical] Pulse Rate from SpO2 Sensor 76 Pulse Rhythm Pulse Strength Respiratory Rate Respiratory Effort / Characteristics Respiratory Depth Respiratory Pattern Blood Pressure 184/86 H Blood Pressure [Right Arm] Blood Pressure Mean 118 Blood Pressure Mean [Right Arm] Blood Pressure Position Pulse Oximetry 97 96 Oxygen Delivery Method Room Air Oxygen Flow Rate 0 Sepsis Recent Fever Within 48 Hours Sepsis New/Unexplained Change in Mental Status Sepsis Action Taken by Nursing Laboratory Data Result diagrams: 12/04/21 19:13 12/04/21 21:05 Lab Results 12/04/21 12/04/21 12/04/21 Range/Units 19:13 19:13 19:13 WBC 6.10 (4.8-10.8) K/uL RBC 4.13 L (4.2-5.4) M/uL Hgb 12.7 (12.0-16.0) g/dL POC Hgb (12.0-16.0) g/dl Hct 37.8 (37-47) % POC Hct (37-47) % MCV 91.5 (80-100) fL MCH 30.8 (25-34) pg MCHC 33.6 (32-36) g/dL RDW Std Deviation 43.4 (36.4-46.3) fL RDW Coeff of Timothy 12.9 (11.5-14.5) % Plt Count 299 (130-400) K/uL MPV 10.6 H (7.4-10.4) fL Immature Gran % (Auto) 0.2 % Neut % (Auto) 63.3 % Lymph % (Auto) 25.2 % [place] % (Auto) 8.0 % Eos % (Auto) 3.1 % Baso % (Auto) 0.2 % Neut # (Auto) 3.86 (1.4-6.5) K/uL Lymph # (Auto) 1.54 (1.2-3.4) K/uL [place] # (Auto) 0.49 (0.11-0.59) K/uL Eos # (Auto) 0.19 (0-0.5) K/uL Baso # (Auto) 0.01 (0-0.2) K/uL Immature Gran # (Auto) 0.01 (0.00-0.02) K/uL PT Cancelled INR Cancelled APTT Cancelled PTT Ratio Cancelled POC Sodium (135-144) mmol/L Sodium 138 (136-145) mmol/L POC Potassium (3.3-5.0) mmol/L Potassium TNP POC Chloride (101-112) mmol/L Chloride 103 (98-107) mmol/L Carbon Dioxide 26 (21-32) mmol/L POC Total CO2 (24-31) mmol/L Anion Gap 9 (3-11) POC Anion Gap (16-25) mmol/L POC BUN (7-18) mg/dl BUN 37 H (6-23) mg/dl Creatinine 1.16 (0.6-1.2) mg/dl POC Creatinine (0.6-1.3) mg/dl Est Cr Clr Drug Dosing 32.5 ml/min Est GFR ( Amer) 51.9 ml/min Est GFR (Non-Af Amer) 44.7 ml/min BUN/Creatinine Ratio 31.9 H (10-20) Glucose 140 H (70-99(Fasting)) mg/dl POC Glucose (70-99) mg/dl POC Glucose (other) (70-99) mg/dl Calcium 9.6 (8.5-10.1) mg/dl POC Ioniz Calcium Irene (1.12-1.32) mmol/l Magnesium 1.5 L (1.7-2.4) mg/dl Total Bilirubin 0.3 (0.2-1.0) mg/dl AST TNP ALT 22 (7-52) U/L Alkaline Phosphatase 76 (34-104) U/L Troponin I High Sens 17.5 H (0-14) pg/ml Total Protein 6.7 (6.0-8.3) gm/dl Albumin 3.8 (3.4-5.0) gm/dl Globulin 2.9 (2.5-4.0) gm/dl Albumin/Globulin Ratio 1.3 (0.9-2) SARS-CoV-2, RNA, NAAT (NEGATIVE) 12/04/21 12/04/21 12/04/21 Range/Units 19:19 19:20 19:40 WBC (4.8-10.8) K/uL RBC (4.2-5.4) M/uL Hgb (12.0-16.0) g/dL POC Hgb 12.2 (12.0-16.0) g/dl Hct (37-47) % POC Hct 36 L (37-47) % MCV (80-100) fL MCH (25-34) pg MCHC (32-36) g/dL RDW Std Deviation (36.4-46.3) fL RDW Coeff of Timothy (11.5-14.5) % Plt Count (130-400) K/uL MPV (7.4-10.4) fL Immature Gran % (Auto) % Neut % (Auto) % Lymph % (Auto) % [place] % (Auto) % Eos % (Auto) % Baso % (Auto) % Neut # (Auto) (1.4-6.5) K/uL Lymph # (Auto) (1.2-3.4) K/uL [place] # (Auto) (0.11-0.59) K/uL Eos # (Auto) (0-0.5) K/uL Baso # (Auto) (0-0.2) K/uL Immature Gran # (Auto) (0.00-0.02) K/uL PT INR APTT PTT Ratio POC Sodium 139 (135-144) mmol/L Sodium (136-145) mmol/L POC Potassium 4.5 (3.3-5.0) mmol/L Potassium POC Chloride 104 (101-112) mmol/L Chloride (98-107) mmol/L Carbon Dioxide (21-32) mmol/L POC Total CO2 27 (24-31) mmol/L Anion Gap (3-11) POC Anion Gap 13.0 L (16-25) mmol/L POC BUN 54 H (7-18) mg/dl BUN (6-23) mg/dl Creatinine (0.6-1.2) mg/dl POC Creatinine 1.1 (0.6-1.3) mg/dl Est Cr Clr Drug Dosing ml/min Est GFR ( Amer) ml/min Est GFR (Non-Af Amer) ml/min BUN/Creatinine Ratio (10-20) Glucose (70-99(Fasting)) mg/dl POC Glucose 141 H (70-99) mg/dl POC Glucose (other) 147 H (70-99) mg/dl Calcium (8.5-10.1) mg/dl POC Ioniz Calcium Irene 1.19 (1.12-1.32) mmol/l Magnesium (1.7-2.4) mg/dl Total Bilirubin (0.2-1.0) mg/dl AST ALT (7-52) U/L Alkaline Phosphatase (34-104) U/L Troponin I High Sens (0-14) pg/ml Total Protein (6.0-8.3) gm/dl Albumin (3.4-5.0) gm/dl Globulin (2.5-4.0) gm/dl Albumin/Globulin Ratio (0.9-2) SARS-CoV-2, RNA, NAAT NEGATIVE (NEGATIVE) 12/04/21 12/04/21 Range/Units 21:05 21:05 WBC (4.8-10.8) K/uL RBC (4.2-5.4) M/uL Hgb (12.0-16.0) g/dL POC Hgb (12.0-16.0) g/dl Hct (37-47) % POC Hct (37-47) % MCV (80-100) fL MCH (25-34) pg MCHC (32-36) g/dL RDW Std Deviation (36.4-46.3) fL RDW Coeff of Timothy (11.5-14.5) % Plt Count (130-400) K/uL MPV (7.4-10.4) fL Immature Gran % (Auto) % Neut % (Auto) % Lymph % (Auto) % [place] % (Auto) % Eos % (Auto) % Baso % (Auto) % Neut # (Auto) (1.4-6.5) K/uL Lymph # (Auto) (1.2-3.4) K/uL [place] # (Auto) (0.11-0.59) K/uL Eos # (Auto) (0-0.5) K/uL Baso # (Auto) (0-0.2) K/uL Immature Gran # (Auto) (0.00-0.02) K/uL PT 9.8 INR 0.9 APTT 23.4 PTT Ratio 0.9 POC Sodium (135-144) mmol/L Sodium (136-145) mmol/L POC Potassium (3.3-5.0) mmol/L Potassium 3.1 L POC Chloride (101-112) mmol/L Chloride (98-107) mmol/L Carbon Dioxide (21-32) mmol/L POC Total CO2 (24-31) mmol/L Anion Gap (3-11) POC Anion Gap (16-25) mmol/L POC BUN (7-18) mg/dl BUN (6-23) mg/dl Creatinine (0.6-1.2) mg/dl POC Creatinine (0.6-1.3) mg/dl Est Cr Clr Drug Dosing ml/min Est GFR ( Amer) ml/min Est GFR (Non-Af Amer) ml/min BUN/Creatinine Ratio (10-20) Glucose (70-99(Fasting)) mg/dl POC Glucose (70-99) mg/dl POC Glucose (other) (70-99) mg/dl Calcium (8.5-10.1) mg/dl POC Ioniz Calcium Irene (1.12-1.32) mmol/l Magnesium (1.7-2.4) mg/dl Total Bilirubin (0.2-1.0) mg/dl AST 27 ALT (7-52) U/L Alkaline Phosphatase (34-104) U/L Troponin I High Sens (0-14) pg/ml Total Protein (6.0-8.3) gm/dl Albumin (3.4-5.0) gm/dl Globulin (2.5-4.0) gm/dl Albumin/Globulin Ratio (0.9-2) SARS-CoV-2, RNA, NAAT (NEGATIVE) Administered Medications Discontinued Medications Acetaminophen (Acetaminophen 325 Mg Tab) Confirm Administered Dose 650 mg .ROUTE .STK-MED ONE Stop: 12/04/21 22:10 Last Admin: 12/04/21 22:14 Dose: 650 mg Documented by: [id number] Alprazolam (Alprazolam 0.5 Mg Tablet) 0.5 mg PO TODAY JENNIFER Stop: 12/05/21 03:00 Last Admin: 12/04/21 22:14 Dose: Not Given Documented by: [id number] Gadobutrol (Gadobutrol 65ml Vial) 5 ml IV ONCE ONE Stop: 12/05/21 00:03 Last Admin: 12/05/21 00:02 Dose: 5 ml Documented by: [id number] Levetiracetam 1,000 mg/ Sodium (Chloride) 110 mls @ 440 mls/hr IV NOW STA Stop: 12/04/21 20:54 Last Admin: 12/04/21 21:21 Dose: 440 mls/hr Documented by: [id number] Imaging Data Radiologist's Impression: Chest X-Ray 12/04/21 19:23 XR chest 1V portable CLINICAL HISTORY: Stroke Like Symptoms TECHNIQUE: Single frontal radiograph of the chest was obtained. Comparison: Comparison is made to chest radiograph 09/11/2020 FINDINGS: No lines and tubes are seen. Calcified aortic knob is seen. The lungs are clear. There is a small right pleural effusion. IMPRESSION: Small right pleural effusion. No evidence of pneumonia. ACT 112: Negative or not required by law. Electronically signed by: Hipolito Hearn M.D. 12/04/2021 8:[address] 12/04/21 19:23 CT head/brain wo con CLINICAL HISTORY: Stroke Like Symptoms Technique: Contiguous axial CT images of the head were acquired from the base of the skull to the vertex without intravenous contrast administration. Images were viewed in brain, subdural and bone windows. Automated dose lowering techniques and/or adjustment according to patient size were utilized for this exam. Comparison: Comparison is made to CT head 09/24/2020 Findings: Redemonstration of previously noted vasogenic edema, right greater than left. No new edema is seen to suggest acute infarct. Imaged portions of the paranasal sinuses and mastoid air cells are clear. The orbits appear normal. There are no acute fractures of the calvaria or scalp swelling. Impression: No acute intracranial hemorrhage, no evidence of acute territorial infarction or other acute intracranial disease process. ACT 112: Negative or not required by law. Electronically signed by: Hipolito Hearn M.D. 12/04/2021 7:48 PM Discharge Plan Visit Data Chief Complaint: Stroke/CVA Symptoms Stated Complaint: Stroke Symptoms ED Provider: Viet Martel Discharge Problem: Brain TIA, Acute hypokalemia Patient Disposition: Admitted As Inpatient Discharge Instructions Interventions: ED Discharge Assessment Last Done: 12/04/21 22:59
[2021-12-04 19:32] LABS: iSTAT Creatinine 1.1 mg/dl (0.6-1.3); iSTAT Hemoglobin 12.2 g/dl (12.0-16.0); iSTAT Ionized Calcium 1.19 mmol/l (1.12-1.32); iSTAT Potassium 4.5 mmol/L (3.3-5.0)
[2021-12-04 19:41] LABS: Basophils # (auto) 0.01 K/uL (0-0.2); Basophils % (auto) 0.2 %; Eosinophils # (auto) 0.19 K/uL (0-0.5); Eosinophils % (auto) 3.1 %; Hematocrit (blood only) 37.8 % (37-47); Hemoglobin 12.7 g/dL (12.0-16.0); Immature Granulocytes # (auto) 0.01 K/uL (0.00-0.02); Immature Granulocytes % (auto) 0.2 %; Lymphocytes # (auto) 1.54 K/uL (1.2-3.4); Lymphocytes % (auto) 25.2 %; Mean Corpuscular Hemoglobin 30.8 pg (25-34); Mean Corpuscular Hgb Conc 33.6 g/dL (32-36); Mean Corpuscular Volume 91.5 fL (80-100); Mean Platelet Volume 10.6 fL (7.4-10.4); Monocytes # (auto) 0.49 K/uL (0.11-0.59); Neutrophils # (auto) 3.86 K/uL (1.4-6.5); Neutrophils % (auto) 63.3 %; Platelet Count 299 K/uL (130-400); RDW Coefficient of Variation 12.9 % (11.5-14.5); RDW Standard Deviation 43.4 fL (36.4-46.3); Red Blood Count 4.13 M/uL (4.2-5.4)
--- NOTE | 2021-12-04 19:50 | CT Scan Report ---
CT head/brain wo con CLINICAL HISTORY: Stroke Like Symptoms Technique: Contiguous axial CT images of the head were acquired from the base of the skull to the [place] without intravenous contrast administration. Images were viewed in brain, subdural and bone [facility]. Automated dose lowering techniques and/or adjustment according to patient size were utilized for this exam. Comparison: Comparison is made to CT head 09/24/2020 Findings: Redemonstration of previously noted vasogenic edema, right greater than left. No new edema is seen to suggest acute infarct. Imaged portions of the paranasal sinuses and mastoid air cells are clear. The orbits appear normal. There are no acute fractures of the calvaria or scalp swelling. Impression: No acute intracranial hemorrhage, no evidence of acute territorial infarction or other acute intracra nial disease process. ACT 112: Negative or not required by law. Electronically signed by: Hipolito Hearn M.D. 12/04/2021 7:48 PM
--- NOTE | 2021-12-04 20:13 | XRay Report ---
XR chest 1V portable CLINICAL HISTORY: Stroke Like Symptoms TECHNIQUE: Single frontal radiograph of the chest was obtained. Comparison: Comparison is made to chest radiograph 09/11/2020 FINDINGS: No lines and tubes are seen. Calcified aortic knob is seen. The lungs are clear. There is a small rig ht pleural effusion. IMPRESSION: Small right pleural effusion. No evidence of pneumonia. ACT 112: Negative or not required by law. Electronically signed by: Hipolito Hearn M.D. 12/04/2021 8:12 PM
[2021-12-04 20:15] LABS: Alanine Aminotransferase 22 U/L (7-52); Albumin Globulin Ratio 1.3 (0.9-2); Albumin Level 3.8 gm/dl (3.4-5.0); Alkaline Phosphatase 76 U/L (34-104); Anion Gap 9 (3-11); BUN Creatinine Ratio 31.9 (10-20); Bilirubin,Total 0.3 mg/dl (0.2-1.0); Blood Urea Nitrogen 37 mg/dl (6-23); Calcium 9.6 mg/dl (8.5-10.1); Carbon Dioxide 26 mmol/L (21-32); Chloride 103 mmol/L (98-107); Creatinine Clr Calc Pharmacy 32.5 ml/min; Est GFR (African American) 51.9 ml/min; Est GFR (Non-African American) 44.7 ml/min; Globulin 2.9 gm/dl (2.5-4.0); Glucose 140 mg/dl (70-99(Fasting)); Magnesium 1.5 mg/dl (1.7-2.4); Sodium 138 mmol/L (136-145); Total Protein 6.7 gm/dl (6.0-8.3); Troponin I High Sensitivity 17.5 pg/ml (0-14)
[2021-12-04] MEDS ORDERED: levETIRAcetam 1,000 MG in 0.9 % SODIUM CHLORIDE 100 ML IV STA (20:40)
[2021-12-04] MEDS ORDERED: MAGNESIUM SULFATE / D5W 1 GM/100 ML BAG IV STA (21:16)
--- NOTE | 2021-12-04 21:28 | History & Physical Report ---
Date of Service December 04, 2021 Assessment & Plan (1) Metastatic cancer to brain: Plan: same, but worsened symptoms at this point from two weeks ago. She is unable to tell me if she is taking decadron still. Telestroke consult performed, however, note with recommendations is not available for my review. With known h/o vasogenic edema that was worsened and these symptoms associated with it, it's very possible vasogenic edema is contributing now, also. With headache present and possible ongoing symptoms, will administer IV decadron. Per ER physician, telestroke neurologist thought a seizure may have occurred and she was loaded with 1 gram of Keppra. Will continue this q12h IV, an increase from her home dose of 750mg BID. Will obtain repeat MR brain with and without contrast and EEG in am. Will consult neurology and place on seizure precautions. With her ongoing questionable deficits, will hold any benzos, as this may make her symptoms much worse. She is high risk for delirium in the hospital. Cont good day/night cycles and reorientation if needed. Will consult radiation oncology for thoughts, also, as they were recently treating her just two weeks ago. Continues on baby ASA and Crestor per outpatient regimen. Hold DVT chemoprophylaxis in setting of metastatic disease in the brain. Allow permissive hypertension in case of a stroke. (2) Seizure: Plan: Keppra 1gm IV q12 as above. Seizure precautions. (3) Diabetes mellitus, type 2: Plan: Level 3 basal/bolus insulin coverage with expected hyperglycemia with steroids. A1C in am. (4) Immunosuppressed status: Plan: Continues on infliximab for UC and steroids recently. (5) Ulcerative colitis: Plan: Infliximab, follows with GI, denies recent flares or issues. (6) Hypothyroidism: Plan: chronic, stable, repeat TSH pending. Cont Levothyroxine per home regimen. (7) Non-small cell cancer of right lung: Plan: s/p partial lung [place] [address] C[place]. Follows with Dr. [facility] (8) COPD (chronic obstructive pulmonary disease): Plan: chronic, stable. No wheezing on exam. Cont nocturnal oxygen. (9) Protein calorie malnutrition: Plan: Nutrition consultation to determine needs. (10) Osteoporosis: Plan: Denosumab infusions as outpatient. (11) Hypomagnesemia: Plan: replace and repeat in am (12) Depression: Plan: chronic, cont sertraline per home regimen. (13) DVT prophylaxis: Plan: SCDs/chemoprophylaxis contraindicated in setting of brain mets. Full code-confirmed with she and sister who was at bedside on admission. [facility]. [facility] History of Present Illness Chief Complaint: stroke like symptoms Primary Care Provider: Danny Ibarra MD 81 yo F with h/o brain mets from lung cancer presents with "a disconnection between my left hand and eyes." She was dropping objects with her left hand today that began all of a sudden. She was very angry on my arrival to the room stating that she was upset with her headache and having asked her nurse for Tylenol but not having yet received it. I left the room, found the nurse and asked him about the Tylenol which he was getting. She remained angry, insulting and physically aggressive throughout the exam limiting the history I could obtain from her. I did review her outpatient records which indicated symptoms like this happening in the past. She has recently had two MRIs one month apart, the last was in October 30 and revealed an increase in extent of the enhancement in brain mets and worsened vasogenic edema with no new lesions identified at that time. She did followup with radiation oncology regarding this and was placed on decadron. Interestingly, at that time she noted a discoordination between her brain and her hands, noting hands don't always do what her brain wants then to. After two weeks of taking decadron 4mg daily, she was improved but not completely. 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 ROS reveals a headache which she and her sister report is new for her. Denies visual changes, acute changes in her breathing, chest pain, abdominal issues, urinary issues or any changes in her hronic loose stool. She has a h/o UC and is on infliximab for this, denying any recent flares. She does have a h/o seizures and takes Keppra faithfully per her report. She remained very upset throughout the short time I was with her, telling her sister she was disgusted with the care, reluctantly answering questions in a sarcastic manner, and rushing through physical exam findings or exaggerating movements such as placing her arms out straight in front of her very fast and hard. When asked to perform a hand squeeze, she dug her fingernail into my finger very hard. All of this limited my ability to gauge if dysfunction was present but it did appear she was still somewhat struggling with finger to nose coordination with the left finger, and with using the left hand to adjust the mask on her face. She kept her right leg very tensed up on exam for reflexes, and it was tough to see any actual reflex in the right knee. She demonstrated full strength in the right leg. Notably, I did consent her for a physical exam prior to starting as she was so upset, and she did say this was ok. Also, of note, medications had to be reconciled using [facility] notes, as she was unable/unwilling to review these. Allergies Allergy/AdvReac Type Severity Reaction Status Date / Time pembrolizumab [From [employer]] AdvReac Mild Diarrhea Verified 12/04/21 20:50 Home Medications Medication Instructions Recorded Confirmed Type cholecalciferol (vitamin D3) 25 1,000 unit PO QAM 04/27/18 12/04/21 History mcg (1,000 unit) capsule omeprazole 20 mg capsule,delayed 20 mg PO QAM 04/27/18 12/04/21 History release blood-glucose meter (OneTouch #1 ea 02/04/20 12/04/21 History Verio Flex Start) lancets 33 gauge (OneTouch Delica #100 ea 02/04/20 12/04/21 History Lancets) infliximab-dyyb 100 mg intravenous See Rx Instructions IV .COMPLEX 04/05/20 12/04/21 History solution (Inflectra) levothyroxine 25 mcg tablet 25 mcg PO DAILYBB 09/11/20 12/04/21 History linagliptin 5 mg tablet (Tradjenta) 5 mg PO QAM 01/04/21 12/04/21 History furosemide 20 mg tablet 20 mg PO QAM 01/30/21 12/04/21 History lorazepam 0.5 mg tablet 0.5 mg PO HS PRN 01/30/21 12/04/21 History rosuvastatin 10 mg tablet 10 mg PO HS 01/30/21 12/04/21 History levetiracetam 750 mg tablet 750 mg PO BID tab 06/07/21 12/04/21 History aspirin 81 mg tablet,delayed 81 mg PO DAILY 07/24/21 12/04/21 History release amoxicillin 500 mg tablet 2,000 mg PO ONCE PRN #4 tab 08/28/21 12/04/21 Rx Oxygen Home #1 ea 10/02/21 12/04/21 History amlodipine 2.5 mg tablet 2.5 mg PO DAILY 10/02/21 12/04/21 History denosumab 60 mg/mL subcutaneous 60 mg SUBCUT Q6MO ml 10/02/21 12/04/21 History syringe (Prolia) glipizide 5 mg tablet 15 mg PO BID tab 10/02/21 12/04/21 History albuterol sulfate 90 mcg/actuation 2 puff INHALATION UD PRN 12/04/21 12/04/21 History aerosol inhaler (Ventolin HFA) sertraline 25 mg tablet 25 mg PO DAILY 12/04/21 12/04/21 History Past Med/Surg History Medical History (Updated 12/04/21 @ 22:48 by Sunita Cast DO) Anemia chronic iron deficiency anemia in setting of ulcerative colitis (does receive routine iron infusions), under surveillance of [facility] hematology/GI. Arthritis Clumsiness Depression Diabetes mellitus, type 2 NIDDM Dizziness High cholesterol History of radiation therapy Hypertension Hypothyroidism Left knee DJD Left knee DJD Metastasis to brain dx 09/2020. MRI imaging and radiation treatments x5. Metastatic cancer to brain Nocturnal hypoxia 2L/min NC HS Non-small cell cancer of right lung (~2016) s/p lower and middle lung lobe resection (2016), no chemo or xrt PVCs (premature ventricular contractions) Ulcerative colitis Inflectra treatments - follows with [facility] GI Surgical History History of breast biopsy History of colonoscopy History of lobectomy of lung Right VATS middle and lower lobectomy: 07/11/17: Grade 2 view, MAC#3, BANG History of repair of rotator cuff History of tonsillectomy History of tubal ligation S/P right rotator cuff repair Status post right knee replacement Family History (Updated 12/04/21 @ 21:57 by Sunita Cast DO) Sister Family history of diabetes mellitus Mother Alzheimer disease Father Myocardial infarction Other Heart disease No family history of adverse response to anesthesia Social History Smoking Status: Former smoker Tobacco Type: Cigarettes Second Hand Exposure: No; Hx Alcohol Use: No Hx Substance Use: No Preferred Language: Polish Communication Ability: Effective Visual Impairment: No Limitations [employer]lies Sales Representative Required: No Beliefs That Will Affect Care: None marital status: / Current Living Situation: Alone Current Living Situation Comment: [facility] How many Children do You have: 0 Feels Safe at Home: Yes Assistive Devices: None Review of Systems Review of Systems: All systems were reviewed and negative except as indicated in HPI above. Physical Exam Physical Exam: CONSTITUTIONAL: WNWD, vitals as above, elderly, distressed- appears very anxious, pressured speech EYES: EOMI bilaterally, PERRL, normal conjunctivae, no scleral icterus, fundoscopic exam deferred 2/2 agitation. ENT: oropharynx clear, MMM NECK: trachea midline RESPIRATORY: clear to auscultation bilaterally, no crackles, rales or wheezes, normal respiratory effort CARDIOVASCULAR: regular rate and rhythm, S1 and 2 heard without murmurs, gallops or rubs, no JVD, no peripheral edema CHEST: inspection of chest was normal GASTROINTESTINAL: soft, nontender, ND, no guarding MUSCULOSKELETAL: strength 5/5 throughout, head is normocephalic and atraumatic, neck supple, normal palpation of chest wall without tenderness SKIN: warm and dry NEUROLOGIC: patellar DTRs 2+ on left, couldn't elicit on R 2/2 pt uncooperative with exam. No facial palsy, no dysarthria. Appears that touch, pain and proprioception normal. CN 2-12 grossly intact, no sensory deficit, normal cognition, normal speech, no tremor PSYCHIATRIC: alert and oriented to person, place and time. Able to look at me when asked but tends to roll her eyes and look away. Appears intentional as associated with sarcasm, but difficult to tell if this is a new neurologic symptom, also Results & Data Results & Data ([facility]) Vital Signs (Past 12 Hours) Vital Signs Temp Pulse Pulse Resp BP BP Pulse Ox 12/04/21 19:42 85 184/86 H 96 12/04/21 19:40 97 12/04/21 19:20 88 23 12/04/21 19:13 36.8 C 84 77 19 177/86 H 184/86 H 95 12/04/21 19:11 84 29 H 97 Laboratory Results Short CBC 12/04/21 Range/Units 19:13 WBC 6.10 (4.8-10.8) K/uL Hgb 12.7 (12.0-16.0) g/dL Hct 37.8 (37-47) % Plt Count 299 (130-400) K/uL BMP 12/04/21 19:13 Sodium 138 Potassium TNP Chloride 103 Carbon Dioxide 26 BUN 37 H Creatinine 1.16 Glucose 140 H Calcium 9.6 Liver Function 12/04/21 Range/Units 19:13 Total Bilirubin 0.3 (0.2-1.0) mg/dl AST TNP ALT 22 (7-52) U/L Alkaline Phosphatase 76 (34-104) U/L Albumin 3.8 (3.4-5.0) gm/dl Diagnostic Findings Chest X-Ray 12/04/21 19:23 XR chest 1V portable CLINICAL HISTORY: Stroke Like Symptoms TECHNIQUE: Single frontal radiograph of the chest was obtained. Comparison: Comparison is made to chest radiograph 09/11/2020 FINDINGS: No lines and tubes are seen. Calcified aortic knob is seen. The lungs are clear. There is a small right pleural effusion. IMPRESSION: Small right pleural effusion. No evidence of pneumonia. ACT 112: Negative or not required by law. Electronically signed by: Hipolito Hearn M.D. 12/04/2021 8:[address] 12/04/21 19:23 CT head/brain wo con CLINICAL HISTORY: Stroke Like Symptoms Technique: Contiguous axial CT images of the head were acquired from the base of the skull to the vertex without intravenous contrast administration. Images were viewed in brain, subdural and bone windows. Automated dose lowering techniques and/or adjustment according to patient size were utilized for this exam. Comparison: Comparison is made to CT head 09/24/2020 Findings: Redemonstration of previously noted vasogenic edema, right greater than left. No new edema is seen to suggest acute infarct. Imaged portions of the paranasal sinuses and mastoid air cells are clear. The o rbits appear normal. There are no acute fractures of the calvaria or scalp swelling. Impression: No acute intracranial hemorrhage, no evidence of acute territorial infarction or other acute intracranial disease process. ACT 112: Negative or not required by law. Electronically signed by: Hipolito Hearn M.D. 12/04/2021 7:48 PM Code Status & VTE Plan VTE Prophylaxis Plan VTE Prophylaxis will be ordered: Yes
[2021-12-04 21:31] LABS: INR 0.9 (0.9-1.1); Partial Thromboplastin Ratio 0.9; Partial Thromboplastin Time 23.4 Seconds (21.0-31.0); Prothrombin Time 9.8 Seconds (9.0-12.0)
[2021-12-04] MEDS ORDERED: ALPRAZolam 0.5 MG TABLET PO SCH (21:31)
[2021-12-04 21:35] LABS: Potassium 3.1 mmol/L (3.5-5.1)
[2021-12-04] MEDS ORDERED: ACETAMINOPHEN 325 MG TAB ONE (22:09)
[2021-12-04] MEDS ORDERED: dexAMETHasone**PF** 10 MG/ML VIAL IV STA (22:43)
[2021-12-04] MEDS ORDERED: GLUCAGON FOR INJ 1 MG VIAL SQ PRN (22:44)
[2021-12-04] MEDS ORDERED: PHARMACIST DISCHARGE MED REC CONSULT PRN (22:44)
[2021-12-04] MEDS ORDERED: DEXTROSE 50% 50 ML SYRINGE IV PRN (22:44)
[2021-12-04] MEDS ORDERED: ACETAMINOPHEN 325 MG TAB PO PRN (22:44)
[2021-12-04] MEDS ORDERED: GLUCOSE 10 TABS/TUBE PO PRN (22:44)
[2021-12-04] MEDS ORDERED: CARBOHYDRATES FOR HYPOGLYCEMIA PO PRN (22:44)
[2021-12-04] MEDS ORDERED: GLUCOSE 40% GEL 15 GM TUBE PO PRN (22:44)
[2021-12-04] MEDS ORDERED: dexAMETHasone 10 MG in SYRINGE 0 ML IV ONE (23:30)
[2021-12-05] MEDS ORDERED: GADOBUTROL 65ML VIAL IV ONE (00:02)
[2021-12-05] MEDS: INSULIN GLARGINE SOLOSTAR 100 UNITS/ML 3 ML PEN SC SCH ×3 (00:57→22:34)
[2021-12-05] MEDS ORDERED: MAGNESIUM SULFATE / D5W 1 GM/100 ML BAG IV SCH (02:00)
--- NOTE | 2021-12-05 02:00 | Communication Note ---
Date of Service: December 05, 2021 Made aware by RN of initial Brain MRI read Findings consistent with progressive metastatic disease, with largest lesion in right parietal lobe measuring up to 2.5 cmand there is extensive associated vasogenic edema in right parietal and posterior frontal regions. Resulting mass effect on right lateral ventricle and effacement of overlying sulci. No herniation. Additional enhancing lesions in left posterior temporal and parietal lobes. Associated hemorrhagic productswithin the parietal lesions, newfromprior MRI Hold Aspirin and Lovenox medications for now.
[2021-12-05] MEDS: dexAMETHasone 4 MG in SYRINGE 0 ML IV SCH ×3 (05:38→17:02)
[2021-12-05] MEDS: LEVOTHYROXINE SODIUM 25 MCG TABLET PO SCH (05:40)
[2021-12-05] MEDS ORDERED: dexAMETHasone**PF** 10 MG/ML VIAL IV SCH (06:00)
--- NOTE | 2021-12-05 07:26 | Magnetic Resonance Report ---
MR brain seizure wo/w con CLINICAL HISTORY: h/o brain mets 2/2 lung ca, poss seizure vs stroke TECHNIQUE: Multiplanar and multisequence MR images of the brain were obtained prior to and following administration of gadolinium contrast. Comparison: None available at the time of this dictation. FINDINGS: Exam is limited by patient motion. No abnormal restricted diffusion is identified. Multifocal vasogenic edema is seen. Progressive metas tatic disease. The largest lesion in the right parietal lobe measuring up to 2.5 cm in diameter. Ther e is extensive associated vasogenic edema. This lesion previously measured 1.9 mm. There is mass effe ct with effacement of the right lateral ventricle. There is leftward midline shift of approximately 2 mm. Additional enhancing foci are seen in the left temporal lobe measuring 10 mm and in the parietal lobe measuring 10 mm. Susceptibility artifact is seen in the bilateral parietal lesions. No extra ax ial fluid collections are seen. The corpus callosum, pituitary gland, and cerebellar tonsils appear g rossly unremarkable.High-resolution images of the temporal lobes do not demonstrate any signal abnorm ality. Flow voids of the major intracranial arterial vessels are identified. The imaged portions of the para nasal sinuses, mastoid air cells, and orbits are unremarkable. IMPRESSION: Multiple enhancing foci of metastatic disease, the largest lesion has increased in size somewhat from prior exam. There is associated vasogenic edema, mass effect, and mild midline shift. ACT 112: Negative or not required by law. Electronically signed by: Hipolito Hearn M.D. 12/05/2021 7:25 AM
[2021-12-05] MEDS ORDERED: levETIRAcetam 1,000 MG in 0.9 % SODIUM CHLORIDE 100 ML IV SCH (08:00)
[2021-12-05 08:33] LABS: Estimated Average Glucose 194 mg/dl; Hemoglobin A1C 8.4 % (4.5-5.6)
[2021-12-05 08:41] LABS: Basophils # (auto) 0.01 K/uL (0-0.2); Basophils % (auto) 0.2 %; Hematocrit (blood only) 39.7 % (37-47); Hemoglobin 14.4 g/dL (12.0-16.0); Lymphocytes # (auto) 0.39 K/uL (1.2-3.4); Lymphocytes % (auto) 8.7 %; Mean Corpuscular Hemoglobin 32.7 pg (25-34); Mean Corpuscular Hgb Conc 36.3 g/dL (32-36); Mean Platelet Volume 4.6 fL (7.4-10.4); Monocytes # (auto) 0.06 K/uL (0.11-0.59); Monocytes % (auto) 1.3 %; Neutrophils # (auto) 4.01 K/uL (1.4-6.5); Neutrophils % (auto) 89.8 %; Platelet Count 231 K/uL (130-400); RDW Coefficient of Variation 12.8 % (11.5-14.5); RDW Standard Deviation 41.9 fL (36.4-46.3); Red Blood Count 4.41 M/uL (4.2-5.4); White Blood Count 4.47 K/uL (4.8-10.8)
[2021-12-05] MEDS: SERTRALINE HCL 50 MG TABLET PO SCH (08:47)
[2021-12-05 08:48] LABS: BUN Creatinine Ratio 38.6 (10-20); Calcium 9.1 mg/dl (8.5-10.1); Chol HDL Ratio 3.7 (0-5); Est GFR (African American) 77.7 ml/min; Est GFR (Non-African American) 67.1 ml/min; Magnesium 2.2 mg/dl (1.7-2.4); Phosphorus 2.6 mg/dl (2.5-4.9); Potassium 3.4 mmol/L (3.5-5.1)
[2021-12-05] MEDS: PANTOprazole 40 MG TAB PO SCH (08:48)
[2021-12-05] MEDS: CHOLECALCIFEROL 1,000 UNITS 25 MCG TAB PO SCH (08:49)
[2021-12-05] MEDS: FUROSEMIDE 20 MG TAB PO SCH (08:49)
[2021-12-05] MEDS: INSULIN ASPART PER UNIT SC SCH ×4 (08:53→22:35)
[2021-12-05] MEDS ORDERED: POTASSIUM CHLORIDE CRTAB 20 MEQ TABCR PO ONE (08:55)
[2021-12-05] MEDS ORDERED: ENOXAPARIN INJ 40 MG/0.4 ML SYR SQ SCH (09:00)
[2021-12-05] MEDS ORDERED: ASPIRIN 81 MG ECTAB PO SCH (09:00)
--- NOTE | 2021-12-05 09:28 | Neurology Consultation ---
Date of Consultation December 05, 2021 Assessment & Plan (1) Metastatic cancer to brain: 1. radiology oncology for direction of steroids 4 mg BID until sees oncology 2. increase size of mass since previous imaging slight increase with radiation necrosis 3. neurosurgery appointment May for further evaluation 4. will be available for questions concerns. (2) Seizure: 1. continue Keppra 750 mg q 12 hours may need increase if seizure occurs with increase of lesions was increase to 1000 mg q 12 hours 2. no driving for 6 months from last seizure date, no heights, no bathing or swimming alone Supervising Physician Co-Signing Physician Notes Patient was seen and examined. She is awake and alert. Denies any known seizur or altered awareness. Reports having some left hand apraxia in the setting of increased size of right metastatic lesion with focal slowing on recent EEG. No strong history to suggest breakthrough seizure. Recommend to continue home Keppra 750 mg BID. Recommend Decadron 4 mg BID w follow up with NSG and Oncology. Patient otherwise aggreabe to plan of care. PLease call with any additional questions or concerns. History of Present Illness Reason for Consultation: stroke like symptoms vs seizure, h/o brain mets Requesting Physician: Rafy Silva MD Attending Physician: Rafy Silva MD History of Present Illness Fatoumata is a 81 year old female with known brain mets from lung cancer presents to [facility] ED 12/04/21 with "a disconnection between my left hand and eyes." She was dropping objects with her left hand today that began all of a sudden.She was upset with her headache and having asked her nurse for Tylenol but not having yet received it.She remained angry, insulting and physically aggressive throughout the exam. She had these same symptoms in the past. She has recently had two MRIs one month apart, the last was in October 30 and revealed an increase in extent of the enhancement in brain mets and worsened vasogenic edema with no new lesions identified at that time. She followed up with radiation oncology regarding this and was placed on decadron. After two weeks of taking decadron 4mg daily, she was improved but not completely. 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 She has a h/o UC and is on infliximab for this, denying any recent flares. She does have a h/o seizures and takes Keppra faithfully. she feels ok today. she has an appointment to see Neurosurgery on December 12 for a biopsy of the lesion. denies CP, SOB, abdominal pain N, V. Allergies Allergy/AdvReac Type Severity Reaction Status Date / Time [facility] AdvReac Mild Diarrhea Verified 12/04/21 20:50 Home Medications Medication Instructions Recorded Confirmed Type cholecalciferol (vitamin D3) 25 1,000 unit PO QAM 04/27/18 12/04/21 History mcg (1,000 unit) capsule omeprazole 20 mg capsule,delayed 20 mg PO QAM 04/27/18 12/04/21 History release blood-glucose meter (OneTouch #1 ea 02/04/20 12/04/21 History Verio Flex Start) lancets 33 gauge (OneTouch Delica #100 ea 02/04/20 12/04/21 History Lancets) infliximab-dyyb 100 mg intravenous See Rx Instructions IV .COMPLEX 04/05/20 12/04/21 History solution (Inflectra) levothyroxine 25 mcg tablet 25 mcg PO DAILYBB 09/11/20 12/04/21 History linagliptin 5 mg tablet (Tradjenta) 5 mg PO QAM 01/04/21 12/04/21 History furosemide 20 mg tablet 20 mg PO QAM 01/30/21 12/04/21 History lorazepam 0.5 mg tablet 0.5 mg PO HS PRN 01/30/21 12/04/21 History rosuvastatin 10 mg tablet 10 mg PO HS 01/30/21 12/04/21 History levetiracetam 750 mg tablet 750 mg PO BID tab 06/07/21 12/04/21 History aspirin 81 mg tablet,delayed 81 mg PO DAILY 07/24/21 12/04/21 History release amoxicillin 500 mg tablet 2,000 mg PO ONCE PRN #4 tab 08/28/21 12/04/21 Rx Oxygen Home #1 ea 10/02/21 12/04/21 History amlodipine 2.5 mg tablet 2.5 mg PO DAILY 10/02/21 12/04/21 History denosumab 60 mg/mL subcutaneous 60 mg SUBCUT Q6MO ml 10/02/21 12/04/21 History syringe (Prolia) glipizide 5 mg tablet 15 mg PO BID tab 10/02/21 12/04/21 History albuterol sulfate 90 mcg/actuation 2 puff INHALATION UD PRN 12/04/21 12/04/21 History aerosol inhaler (Ventolin HFA) sertraline 25 mg tablet 25 mg PO DAILY 12/04/21 12/04/21 History Patient History Medical History (Updated 12/05/21 @ 17:16 by Rafy Silva MD) Anemia chronic iron deficiency anemia in setting of ulcerative colitis (does receive routine iron infusions), under surveillance of [facility] hematology/GI. Arthritis Clumsiness Depression Diabetes mellitus, type 2 NIDDM Dizziness High cholesterol History of radiation therapy Hypertension Hypothyroidism Left knee DJD Left knee DJD Metastasis to brain dx 09/2020. MRI imaging and radiation treatments x5. Metastatic cancer to brain Nocturnal hypoxia 2L/min NC HS Non-small cell cancer of right lung (~2016) s/p lower and middle lung lobe resection (2017), no chemo or xrt PVCs (premature ventricular contractions) Ulcerative colitis Inflectra treatments - follows with [facility] GI Surgical History History of breast biopsy History of colonoscopy History of lobectomy of lung Right VATS middle and lower lobectomy: 07/11/17: Grade 2 view, MAC#3, BANG History of repair of rotator cuff History of tonsillectomy History of tubal ligation S/P right rotator cuff repair Status post right knee replacement Family History (Updated 12/04/21 @ 21:57 by Sunita Cast DO) Sister Family history of diabetes mellitus Mother Alzheimer disease Father Myocardial infarction Other Heart disease No family history of adverse response to anesthesia Social History Smoking Status: Former smoker Tobacco Type: Cigarettes Second Hand Exposure: No; Do You Dip or Chew Tobacco: No; Tobacco Cessation Education Requested by Patient: No Hx Alcohol Use: No Hx Substance Use: No Preferred Language: Micronesian Communication Ability: Effective Visual Impairment: No Limitations 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 Required: No Beliefs That Will Affect Care: None marital status: / Current Living Situation: Alone Current Living Situation Comment: [facility] How many Children do You have: 0 Other Information That Helps Us Care for You: No Feels Safe at Home: Yes Safety Concerns: Feels Safe At This Time Assistive Devices: None Review of Systems Review of Systems: All systems reviewed & are unremarkable except as noted in HPI & below Physical Exam Physical Exam: Physical Exam: Constitutional: appearance nourished, thin Ears, Nose, Mouth and Throat: mucous membranes moist, no injection and skin normal, eyes normal Cardiovascular: normal S-1 and S-2 and regular rate and rhythm Respiratory: course distant breath sounds Musculoskeletal: no peripheral edema and good distal pulses Skin: no stigmata of neurocutaneous disease noted and normal and intact Eyes: extraocular muscles intact (EOMI) NEUROLOGIC EXAMINATION: Mental status: Alert and interactive Oriented to full date and location Oriented to person Speech fluent with no evidence of aphasia Cranial Nerves smile eye brow raise symmetric Reflexes: Deep tendon reflexes were symmetrical and graded 2/5. Sensory: no sensory deficits. to light or cool touch Coordination: finger to nose no bipass Gait/Stance: Posture lying in bed Motor: Negative for pronator drift of out stretched arms with eyes closed. 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4) K/uL [place] # (Auto) (0.11-0.59) K/uL Sodium (136-145) mmol/L Potassium (3.5-5.1) mmol/L POC Anion Gap (16-25) mmol/L POC BUN (7-18) mg/dl BUN 37 H (6-23) mg/dl BUN/Creatinine Ratio 31.9 H (10-20) Glucose 140 H (70-99(Fasting)) mg/dl POC Glucose 141 H (70-99) mg/dl POC Glucose (other) (70-99) mg/dl Hemoglobin A1c (4.5-5.6) % Magnesium 1.5 L (1.7-2.4) mg/dl Troponin I High Sens 17.5 H (0-14) pg/ml Cholesterol (0-200) mg/dl 12/04/21 12/04/21 12/05/21 Range/Units 19:20 21:05 00:55 WBC (4.8-10.8) K/uL RBC (4.2-5.4) M/uL POC Hct 36 L (37-47) % MCHC (32-36) g/dL MPV (7.4-10.4) fL Lymph # (Auto) (1.2-3.4) K/uL [place] # (Auto) (0.11-0.59) K/uL Sodium (136-145) mmol/L Potassium 3.1 L (3.5-5.1) mmol/L POC Anion Gap 13.0 L (16-25) mmol/L POC BUN 54 H (7-18) mg/dl BUN (6-23) mg/dl BUN/Creatinine Ratio (10-20) Glucose (70-99(Fasting)) mg/dl POC Glucose 173 H (70-99) mg/dl POC Glucose (other) 147 H (70-99) mg/dl Hemoglobin A1c (4.5-5.6) % Magnesium (1.7-2.4) mg/dl Troponin I High Sens (0-14) pg/ml Cholesterol (0-200) mg/dl 12/05/21 12/05/21 12/05/21 Range/Units 06:41 06:41 06:41 WBC 4.47 L (4.8-10.8) K/uL RBC (4.2-5.4) M/uL POC Hct (37-47) % MCHC 36.3 H (32-36) g/dL MPV 4.6 L (7.4-10.4) fL Lymph # (Auto) 0.39 L (1.2-3.4) K/uL [place] # (Auto) 0.06 L (0.11-0.59) K/uL Sodium 134 L (136-145) mmol/L Potassium 3.4 L (3.5-5.1) mmol/L POC Anion Gap (16-25) mmol/L POC BUN (7-18) mg/dl BUN 32 H (6-23) mg/dl BUN/Creatinine Ratio 38.6 H (10-20) Glucose 288 H (70-99(Fasting)) mg/dl POC Glucose (70-99) mg/dl POC Glucose (other) (70-99) mg/dl Hemoglobin A1c 8.4 H (4.5-5.6) % Magnesium (1.7-2.4) mg/dl Troponin I High Sens (0-14) pg/ml Cholesterol 233 H (0-200) mg/dl 12/05/21 12/05/21 Range/Units 07:24 07:24 WBC (4.8-10.8) K/uL RBC (4.2-5.4) M/uL POC Hct (37-47) % MCHC (32-36) g/dL MPV (7.4-10.4) fL Lymph # (Auto) (1.2-3.4) K/uL [place] # (Auto) (0.11-0.59) K/uL Sodium (136-145) mmol/L Potassium (3.5-5.1) mmol/L POC Anion Gap (16-25) mmol/L POC BUN (7-18) mg/dl BUN (6-23) mg/dl BUN/Creatinine Ratio (10-20) Glucose (70-99(Fasting)) mg/dl POC Glucose 276 H 269 H (70-99) mg/dl POC Glucose (other) (70-99) mg/dl Hemoglobin A1c (4.5-5.6) % Magnesium (1.7-2.4) mg/dl Troponin I High Sens (0-14) pg/ml Cholesterol (0-200) mg/dl Diagnostic Findings CXR-Small right pleural effusion. No evidence of pneumonia. CT head-No acute intracranial hemorrhage, no evidence of acute territorial infarction or other acute intracranial disease process. MRI brain-Multiple enhancing foci of metastatic disease, the largest lesion has increased in size somewhat from prior exam. There is associated vasogenic edema, mass effect, and mild midline shift.
--- NOTE | 2021-12-05 10:15 | Electrocardiogram Report ---
Test Reason : Blood Pressure : / mmHG Vent. Rate : 083 BPM Atrial Rate : 083 BPM P-R Int : 160 ms QRS Dur : 102 ms QT Int : 402 ms P-R-T Axes : 072 067 009 degrees QTc Int : 472 ms Normal sinus rhythm Nonspecific T wave abnormality Abnormal ECG When compared with ECG of 24-JUL-2021 17:39, Nonspecific T wave abnormality now evident in Lateral leads Confirmed by Andres Ruiz ([id number]) on 12/05/2021 10:14:55 AM Referred By: REFERRED SELF Confirmed By:Andres Ruiz
--- NOTE | 2021-12-05 10:17 | Radiation OncologyConsultation ---
Date of Consultation December 05, 2021 Assessment & Plan (1) Metastatic cancer to brain: Assessment: Ms. Nathan is a 81-year-old female who presents with a history of non-small cell lung carcinoma of the right lung status post right middle and lower lobe lobectomy by Dr. Covington on 07/11/2017. The patient did have pleural fluid cytology suspicious for metastatic carcinoma. The patient did proceed to undergo Keytruda in 2018 which stopped in December 2017 due to colitis. The patient received no further adjuvant therapy. The patient was subsequently diagnosed with metastatic disease to the brain involving 3 separate lesions in September 2020. The patient underwent fractionated stereotactic radiosurgery (5 fractions, 600 cGy per fraction, 3000 cGy, 10/04/2020). The patient has been underneath close surveillance given questionable progression of disease in the brain versus radiation necrosis in the outpatient setting. More recently, the patient did agree to see Dr. Yuriy Villeda for medical oncology to discuss potential Avastin for treatment of the radiation necrosis. The patient and Dr. Yuriy Villeda have agreed to consider a neurosurgery consultation initially and if appropriate proceed with Avastin if deemed the patient has radiation necrosis as opposed to progression of disease. Unfortunately, the patient was admitted to the hospital prior to her neurosurgery consultation due to strokelike symptoms. She did have an MRI of the brain completed during this admission which does suggest potential continued progression versus radiation necrosis. Plan: 1. No radiation therapy treatment indicated at this point. We will continue to follow the patient and document as needed. 2. Neurosurgery referral in the outpatient setting is being scheduled. The patient will follow up with both medical oncology and radiation oncology to determine a final plan. 3. Dexamethasone may be managed as needed by primary hospital team. Goal would be to lower to Dexamethasone 4 mg p.o. twice daily or three times a day to help with side effects from medication. She will probably need to be on some level of Dexamethasone for a while given extent of edema. Hospitalist can call us if guidance needed regarding tapering. 4. All other medications to be managed by primary medical team and neurology. 5. Patient and family encouraged to call us with any further questions or concerns. History of Present Illness Attending Physician: Rafy Silva MD History of Present Illness 07/2017. Status post right middle and lower lobectomy by Dr. Covington. Non- small cell lung carcinoma. pT2aN1. Pleural fluid cytology suspicious for metastatic carcinoma. 2018. Patient treated with Keytruda which stopped on 12/09/2017 due to colitis. 05/11/2020. CT of chest. IMPRESSION: 1. Status post right lower and right middle lobe resection. Redemonstration of right pleural thickening with a trace right pleural effusion with interval development of gas within the right lower hemithorax which may be pleural or parenchymal in location. The etiology and significance of this finding is unclear. Short-term follow-up chest CT in [facility] is recommended. 2. Otherwise, unchanged appearance of the chest. No thoracic lymphadenopathy. 3. No change in multiple ill-defined bilateral upper lobe pulmonary opacities which favor a chronic inflammatory process. 4. Emphysema. 07/13/2020. CT of chest. IMPRESSION: 1. Cardiomegaly and emphysema with postoperative change from right-sided pulmonary resection. 2. There is no evidence of metastatic disease in the thorax. 3. Scattered subcentimeter pulmonary nodules are pathologically indeterminant and unchanged from prior studies. The appearance favors a chronic infectious/inflammatory etiology. 4. Trace pleural fluid is again seen at the right lung base. Gas within the pleural fluid seen on 05/11/2020 has resolved. 5. Additional findings as above. 09/11/2020. Patient presents to emergency room and admitted to hospital due to strokelike symptoms. 09/11/2020. CT of head. IMPRESSION: Vasogenic edema within the bilateral parietal lobes and left temporal lobe are suspicious for underlying intra-axial lesions, likely intracranial metastatic disease in this patient with history of known lung cancer. There is a 10 mm hemorrhagic focus within the right parietal lobe suggestive of hemorrhagic metastasis. There is resultant gyral expansion and sulcal effacement within these distributions without midline shift, hydrocephalus or herniation. Correlation with follow-up contrast enhanced MRI recommended. 09/12/2020. MRI brain. IMPRESSION: Three enhancing parenchymal lesions, the largest of which is a 1.8 x 1.6 cm left parietal lobe lesion. These lesions have moderate associated vasogenic edema and are consistent with metastases. 09/25/2020 to 10/04/2020. SBRT to brain. 3000 cGy in 5 fractions. 12/01/2020. MRI brain. IMPRESSION: 1. Interval decrease in the size of the previously described 3 bilateral enhancing parenchymal lesions. There is persistent but diminishing associated vasogenic edema. The findings are consistent with metastatic disease with a treatment response. 03/05/2021. Medical oncology follow-up. Return to clinic in 3 months. No systemic therapy at this point. 03/06/2021. MRI brain. IMPRESSION: 1. No acute intracranial abnormality. 2. Slight interval decrease in size of the three enhancing metastatic intra-axial lesions as above with decreased associated vasogenic edema. 3. No new lesions identified. 05/16/2021. CT of chest. IMPRESSION: 1. Emphysema without acute intrathoracic abnormality. 2. Postoperative changes of the right lung are redemonstrated. There is unchanged right basilar pleural thickening with chronic trace pleural effusion. 3. Scattered subcentimeter bilateral nodular opacities are also unchanged and are likely infectious or inflammatory. 4. No adenopathy. 5. Additional findings as above. 06/06/2021. MRI brain. IMPRESSION: Slight increase in size in the metastatic lesions within the right parietal and left temporal lobes with progressive vasogenic edema. Stable cystic metastatic focus within the left frontoparietal junction. No new metastatic foci identified. 07/24/2021. MRI Brain. IMPRESSION: 1. No acute intracranial abnormality. 2. Mildly increased size of the intracranial metastatic lesions with progressively worsened associated vasogenic edema. 3. No new metastatic lesions are identified. 10/01/2021. MRI brain. IMPRESSION: 1. No acute intracranial abnormality. 2. Intracranial metastatic disease redemonstrated with mildly increased size of the dominant right parietal lesion. There is stable to slightly improved vasogenic edema surrounding the metastatic foci. 3. No new metastatic lesions are identified. 11/07/2021. MRI brain. IMPRESSION: 1. No evidence for acute infarction. 2. Increase in extent of enhancement of a right parietal lobe lesion since previous MRI. Associated vasogenic edema has also increased with mild mass effect upon the the lateral ventricle and extension into the corpus callosum. This interval change could be treatment-related such as radiation necrosis. Progression of metastatic disease is also within the differential and therefore a short-term follow-up MRI of the brain is recommended. 3. Increase in vasogenic edema associated with the left parietal and temporal lobe lesions which also could be treatment-related but should be assessed on follow-up MRI. 4. No new lesions identified. 11/23/2021. Medical oncology follow-up with Dr. Yuriy Villeda. Plan is to initiate Avastin for radiation necrosis. After visit, patient has indicated she would like to have a neurosurgical consultation prior to initiating Avastin. 12/04/2021. Patient admitted to hospital for strokelike symptoms. 12/04/2021. MRI brain. IMPRESSION: Multiple enhancing foci of metastatic disease, the largest lesion has increased in size somewhat from prior exam. There is associated vasogenic edema, mass effect, and mild midline shift. Allergies Allergy/AdvReac Type Severity Reaction Status Date / Time pembrolizumab [From [facility]] AdvReac Mild Diarrhea Verified 12/04/21 20:50 Home Medications Medication Instructions Recorded Confirmed Type cholecalciferol (vitamin D3) 25 1,000 unit PO QAM 04/27/18 12/04/21 History mcg (1,000 unit) capsule omeprazole 20 mg capsule,delayed 20 mg PO QAM 04/27/18 12/04/21 History release blood-glucose meter (OneTouch #1 ea 02/04/20 12/04/21 History Verio Flex Start) lancets 33 gauge (OneTouch Delica #100 ea 02/04/20 12/04/21 History Lancets) infliximab-dyyb 100 mg intravenous See Rx Instructions IV .COMPLEX 04/05/20 12/04/21 History solution (Inflectra) levothyroxine 25 mcg tablet 25 mcg PO DAILYBB 09/11/20 12/04/21 History linagliptin 5 mg tablet (Tradjenta) 5 mg PO QAM 01/04/21 12/04/21 History furosemide 20 mg tablet 20 mg PO QAM 01/30/21 12/04/21 History lorazepam 0.5 mg tablet 0.5 mg PO HS PRN 01/30/21 12/04/21 History rosuvastatin 10 mg tablet 10 mg PO HS 01/30/21 12/04/21 History levetiracetam 750 mg tablet 750 mg PO BID tab 06/07/21 12/04/21 History aspirin 81 mg tablet,delayed 81 mg PO DAILY 07/24/21 12/04/21 History release amoxicillin 500 mg tablet 2,000 mg PO ONCE PRN #4 tab 08/28/21 12/04/21 Rx Oxygen Home #1 ea 10/02/21 12/04/21 History amlodipine 2.5 mg tablet 2.5 mg PO DAILY 10/02/21 12/04/21 History denosumab 60 mg/mL subcutaneous 60 mg SUBCUT Q6MO ml 10/02/21 12/04/21 History syringe (Prolia) glipizide 5 mg tablet 15 mg PO BID tab 10/02/21 12/04/21 History albuterol sulfate 90 mcg/actuation 2 puff INHALATION UD PRN 12/04/21 12/04/21 History aerosol inhaler (Ventolin HFA) sertraline 25 mg tablet 25 mg PO DAILY 12/04/21 12/04/21 History Patient History Medical History (Updated 12/05/21 @ 00:51 by Viet Martel DO) Anemia chronic iron deficiency anemia in setting of ulcerative colitis (does receive routine iron infusions), under surveillance of [facility] hematology/GI. Arthritis Clumsiness Depression Diabetes mellitus, type 2 NIDDM Dizziness High cholesterol History of radiation therapy Hypertension Hypothyroidism Left knee DJD Left knee DJD Metastasis to brain dx 09/2020. MRI imaging and radiation treatments x5. Metastatic cancer to brain Nocturnal hypoxia 2L/min NC HS Non-small cell cancer of right lung (~2016) s/p lower and middle lung lobe resection (2017), no chemo or xrt PVCs (premature ventricular contractions) Ulcerative colitis Inflectra treatments - follows with [facility] GI Surgical History History of breast biopsy History of colonoscopy History of lobectomy of lung Right VATS middle and lower lobectomy: 07/11/17: Grade 2 view, MAC#3, BANG History of repair of rotator cuff History of tonsillectomy History of tubal ligation S/P right rotator cuff repair Status post right knee replacement Family History (Updated 12/04/21 @ 21:57 by Sunita Cast DO) Sister Family history of diabetes mellitus Mother Alzheimer disease Father Myocardial infarction Other Heart disease No family history of adverse response to anesthesia Social History Smoking Status: Former smoker Tobacco Type: Cigarettes Second Hand Exposure: No; Do You Dip or Chew Tobacco: No; Tobacco Cessation Education Requested by Patient: No Hx Alcohol Use: No Hx Substance Use: No Preferred Language: Cymro Communication Ability: Effective Visual Impairment: No Limitations Die Cast Operator Required: No Beliefs That Will Affect Care: None marital status: / Current Living Situation: Alone Current Living Situation Comment: [facility] How many Children do You have: 0 Other Information That Helps Us Care for You: No Feels Safe at Home: Yes Safety Concerns: Feels Safe At This Time Assistive Devices: Glasses Review of Systems Review of Systems: Patient continues to complain of weakness involving her left upper extremity. She also notes some apraxia as well. Physical Exam Constitutional: WD/WN, vitals as above Skin: no rashes, warm and dry Psychiatric: A+Ox3, euthymic affect Time Spent Attending I spent 15 minutes in preparation for this consultation including reviewing all the clinical records, reviewing laboratory studies, pathology reports and imaging results. I spent 20 minutes with direct face to face interaction with the patient and/or family including performing a physical exam and answering all questions. I spent 25 minutes documenting this patient's visit.
--- NOTE | 2021-12-05 15:21 | Electroencephalogram ---
EEG Procedure Note Date of Service December 05, 2021 Start / End Times Start Time: 10:07 End Time: :[address] Sunita Cast History A 81-year-old female with brain metastases and possible seizure. EEG performed for ration of epileptiform activity. Home Medication List Medication Instructions Recorded Confirmed Type cholecalciferol (vitamin D3) 25 1,000 unit PO QAM 04/27/18 12/04/21 History mcg (1,000 unit) capsule omeprazole 20 mg capsule,delayed 20 mg PO QAM 04/27/18 12/04/21 History release blood-glucose meter (OneTouch #1 ea 02/04/20 12/04/21 History Verio Flex Start) lancets 33 gauge (OneTouch Delica #100 ea 02/04/20 12/04/21 History Lancets) infliximab-dyyb 100 mg intravenous See Rx Instructions IV .COMPLEX 04/05/20 12/04/21 History solution (Inflectra) levothyroxine 25 mcg tablet 25 mcg PO DAILYBB 09/11/20 12/04/21 History linagliptin 5 mg tablet (Tradjenta) 5 mg PO QAM 01/04/21 12/04/21 History furosemide 20 mg tablet 20 mg PO QAM 01/30/21 12/04/21 History lorazepam 0.5 mg tablet 0.5 mg PO HS PRN 01/30/21 12/04/21 History rosuvastatin 10 mg tablet 10 mg PO HS 01/30/21 12/04/21 History levetiracetam 750 mg tablet 750 mg PO BID tab 06/07/21 12/04/21 History aspirin 81 mg tablet,delayed 81 mg PO DAILY 07/24/21 12/04/21 History release amoxicillin 500 mg tablet 2,000 mg PO ONCE PRN #4 tab 08/28/21 12/04/21 Rx Oxygen Home #1 ea 10/02/21 12/04/21 History amlodipine 2.5 mg tablet 2.5 mg PO DAILY 10/02/21 12/04/21 History denosumab 60 mg/mL subcutaneous 60 mg SUBCUT Q6MO ml 10/02/21 12/04/21 History syringe (Prolia) glipizide 5 mg tablet 15 mg PO BID tab 10/02/21 12/04/21 History albuterol sulfate 90 mcg/actuation 2 puff INHALATION UD PRN 12/04/21 12/04/21 History aerosol inhaler (Ventolin HFA) sertraline 25 mg tablet 25 mg PO DAILY 12/04/21 12/04/21 History Inpatient Medication List Furosemide (Furosemide 20 Mg Tab) 20 mg PO QAM [facility] Stop: 01/04/22 08:59 Last Admin: 12/05/21 08:49 Dose: 20 mg Documented by: [id number] Levetiracetam 1,000 mg/ Sodium (Chloride) 110 mls @ 440 mls/hr IV Q12H [facility] Stop: 01/04/22 07:59 Last Infusion: 12/05/21 09:17 Dose: 0 mls/hr Documented by: [id number] Admin: 12/05/21 09:01 Dose: 440 mls/hr Documented by: [id number] Dexamethasone 4 mg/ Syringe 1 mls @ 1 mls/min IV Q6H [facility] Stop: 01/04/22 05:59 Last Admin: 12/05/21 11:52 Dose: 1 mls/min Documented by: [id number] Admin: 12/05/21 05:38 Dose: 1 mls/min Documented by: [id number] Insulin Aspart (Insulin Aspart Per Unit) 0 units SC ACHS [facility] Stop: 01/04/22 07:29 Last Admin: 12/05/21 11:49 Dose: 7 units Documented by: [id number] Cosigned by: [id number] Admin: 12/05/21 08:53 Dose: 5 units Documented by: [id number] Cosigned by: [id number] Insulin Glargine (Insulin Glargine Solostar 100 Units/Ml 3 Ml Pen) 13 units SC BID [facility] Stop: 01/03/22 22:43 Last Admin: 12/05/21 08:53 Dose: 13 units Documented by: [id number] Cosigned by: [id number] Admin: 12/05/21 00:57 Dose: 13 units Documented by: [id number] Cosigned by: [id number] Levothyroxine Sodium (Levothyroxine Sodium 25 Mcg Tablet) 25 mcg PO DAILYBB [facility] Stop: 01/04/22 06:29 Last Admin: 12/05/21 05:40 Dose: 25 mcg Documented by: [id number] Pantoprazole Sodium (Pantoprazole 40 Mg Tab) 40 mg PO QAM [facility] Stop: 01/04/22 08:59 Last Admin: 12/05/21 08:48 Dose: 40 mg Documented by: [id number] Sertraline HCl (Sertraline Hcl 50 Mg Tablet) 25 mg PO DAILY [facility] Stop: 01/04/22 08:59 Last Admin: 12/05/21 08:47 Dose: 25 mg Documented by: [id number] Vitamin D (Cholecalciferol 1,000 Units 25 Mcg Tab) 1,000 units PO QAM [facility] Stop: 01/04/22 08:59 Last Admin: 12/05/21 08:49 Dose: 1,000 units Documented by: [id number] Discontinued Medications Acetaminophen (Acetaminophen 325 Mg Tab) Confirm Administered Dose 650 mg .ROUTE .STK-MED ONE Stop: 12/04/21 22:10 Last Admin: 12/04/21 22:14 Dose: 650 mg Documented by: [id number] Alprazolam (Alprazolam 0.5 Mg Tablet) 0.5 mg PO TODAY [facility] Stop: 12/05/21 03:00 Last Admin: 12/04/21 22:14 Dose: Not Given Documented by: [id number] Gadobutrol (Gadobutrol 65ml Vial) 5 ml IV ONCE ONE Stop: 12/05/21 00:03 Last Admin: 12/05/21 00:02 Dose: 5 ml Documented by: [id number] Levetiracetam 1,000 mg/ Sodium (Chloride) 110 mls @ 440 mls/hr IV NOW STA Stop: 12/04/21 20:54 Last Infusion: 12/05/21 01:01 Dose: 0 mls/hr Documented by: [id number] Admin: 12/04/21 21:21 Dose: 440 mls/hr Documented by: [id number] Magnesium Sulfate/Dextrose (Magnesium Sulfate / D5w) 1 gm in 100 mls @ 50 mls/hr IV Q2H [facility] Stop: 12/04/21 23:15 Last Infusion: 12/05/21 02:55 Dose: 0 mls/hr Documented by: [id number] Admin: 12/05/21 00:51 Dose: 50 mls/hr Documented by: [id number] Dexamethasone 10 mg/ Syringe 2.5 mls @ 1 mls/min IV 2330 [facility] Stop: 12/04/21 23:32 Last Admin: 12/05/21 00:48 Dose: 1 mls/min Documented by: [id number] Magnesium Sulfate/Dextrose (Magnesium Sulfate / D5w) 1 gm in 100 mls @ 50 mls/hr IV 0200 [facility] Stop: 12/05/21 03:59 Last Infusion: 12/05/21 05:49 Dose: 0 mls/hr Documented by: [id number] Admin: 12/05/21 02:52 Dose: 50 mls/hr Documented by: [id number] Potassium Chloride (Potassium Chloride Crtab 20 Meq Tabcr) 40 meq PO NOW ONE Stop: 12/05/21 08:56 Last Admin: 12/05/21 09:15 Dose: 40 meq Documented by: [id number] Description This is a 21 electrode EEG with a single channel dedicated to limited EKG. The electrodes were placed in accordance with the International 10-20 system. Report: At the onset of the EEG the patient is drowsy. The background is asymmetric. The posterior dominant rhythm is 9 Hz best seen on the left. There is continuous focal suppression seen in the right parietal occipital head region. Photic stimulation does not induce any abnormalities. No stage II sleep transients are seen. Interpretation This is an abnormal awake and drowsy routine EEG due to continuous focal suppression seen on the right maximal in parietal occipital head region suggestive of an underlying structural abnormality. No epileptiform discharges or electrographic seizures are recorded.
--- NOTE | 2021-12-05 17:14 | Hospitalist Progress Note ---
Date of Service December 05, 2021 Assessment & Plan (1) Metastatic cancer to brain: Plan: - Repeat MRI brain 12/05- Multiple enhancing foci of metastatic disease, the largest lesion has increased in size somewhat from prior exam. There is associated vasogenic edema, mass effect, and mild midline shift. - Seen by radiation oncology and neurology- recommendations noted - Continue decadron - OP f/u with neurosurgery at [facility] on 12/12 - Continue keppra - Palliative evaluation pending - PT/OT (2) Seizure: Plan: EEG with no epileptiform activities noted. Seen by neuro- continue home dose of keppra 750 bid- if seizure activities noted, will need to increase dose to 1000 bid at that juncture. (3) Diabetes mellitus, type 2: Plan: Hyperglycemia worsened with steroid. Insulin adjusted. (4) Immunosuppressed status: Plan: Continues on infliximab for UC and steroids recently. (5) Ulcerative colitis: Plan: Infliximab, follows with GI, denies recent flares or issues. (6) Hypothyroidism: Plan: chronic, stable, repeat TSH normal. Continue Levothyroxine per home regimen. (7) Non-small cell cancer of right lung: Plan: s/p partial lung [place] [address] [place]. Follows with Dr. Villeda- [facility] (8) COPD (chronic obstructive pulmonary disease): Plan: chronic, stable. No wheezing on exam. Continue nocturnal oxygen. (9) Osteoporosis: Plan: Denosumab infusions as outpatient. (10) Hypomagnesemia: Plan: resolved with repletion (11) Depression: Plan: chronic, continue sertraline per home regimen. (12) Hypokalemia: Plan: Repleted, recheck in am (13) DVT prophylaxis: Plan: SCDs/chemoprophylaxis contraindicated in setting of brain mets. Admission and Anticipated Discharge Date Admission Date: December 04, 2021 Subjective No new issues. She is calm, cooperative, alert oriented and answering all questions appropriately today, unlike what was stated in H&P. She states she has lived a good life and does not want to end up being vegetative. States she ambulated with PT with walker. She was seen by radiation oncology and neurology today and recommendations were noted and discussed. She has appointment with neurosurgery on 12/12. Her sister was at bedside and all questions were answered. Physical Exam Physical Exam: General: Lying comfortably in bed, not in distress, on room air HEENT: EOMI, [place], MMM Chest: Clear breath sounds bilaterally, no wheezes or crackles CVS: Regular rate and rhythm, normal heart sounds, no murmur Abdomen: Soft, non tender, not distended, normal bowel sounds Neuro: Awake, alert, oriented, conversing well, non focal. Strength 5/5 in all extremities. Extremities: No cyanosis, clubbing or edema Results & Data Results & Data ([facility]) Vital Signs (Past 12 Hours) Vital Signs Temp Pulse Pulse Resp BP Pulse Ox 12/05/21 16:49 70 12/05/21 15:11 36.6 C 78 20 152/61 H 95 12/05/21 11:06 36.4 C L 81 18 139/72 97 12/05/21 08:00 77 12/05/21 07:05 36.8 C 79 24 138/71 94 Laboratory Results Short CBC 12/04/21 12/05/21 Range/Units 19:13 06:41 WBC 6.10 4.47 L (4.8-10.8) K/uL Hgb 12.7 14.4 (12.0-16.0) g/dL Hct 37.8 39.7 (37-47) % Plt Count 299 231 (130-400) K/uL BMP 12/04/21 12/04/21 12/05/21 19:13 21:05 06:41 Sodium 138 134 L Potassium TNP 3.1 L 3.4 L Chloride 103 100 Carbon Dioxide 26 26 BUN 37 H 32 H Creatinine 1.16 0.83 D Glucose 140 H 288 H Calcium 9.6 9.1 Liver Function 12/04/21 12/04/21 Range/Units 19:13 21:05 Total Bilirubin 0.3 (0.2-1.0) mg/dl AST TNP 27 ALT 22 (7-52) U/L Alkaline Phosphatase 76 (34-104) U/L Albumin 3.8 (3.4-5.0) gm/dl Diagnostic Findings Brain MRI 12/04/21 21:24 MR brain seizure wo/w con CLINICAL HISTORY: h/o brain mets 2/2 lung ca, poss seizure vs stroke TECHNIQUE: Multiplanar and multisequence MR images of the brain were obtained prior to and following administration of gadolinium contrast. Comparison: None available at the time of this dictation. FINDINGS: Exam is limited by patient motion. No abnormal restricted diffusion is identified. Multifocal vasogenic edema is seen. Progressive metastatic disease. The largest lesion in the right parietal lobe measuring up to 2.5 cm in diameter. There is extensive associated vasogenic edema. This lesion previously measured 1.9 mm. There is mass effect with effacement of the right lateral ventricle. There is leftward midline shift of approximately 2 mm. Additional enhancing foci are seen in the left temporal lobe measuring 10 mm and in the parietal lobe measuring 10 mm. Susceptibility artifact is seen in the bilateral parietal lesions. No extra axial fluid collections are seen. The corpus callosum, pituitary gland, and cerebellar tonsils appear grossly unremarkable.High-resolution images of the temporal lobes do not demonstrate any signal abnormality. Flow voids of the major intracranial arterial vessels are identified. The imaged portions of the paranasal sinuses, mastoid air cells, and orbits are unremarkable. IMPRESSION: Multiple enhancing foci of metastatic disease, the largest lesion has increased in size somewhat from prior exam. There is associated vasogenic edema, mass effect, and mild midline shift. ACT 112: Negative or not required by law. Electronically signed by: Hipolito Hearn M.D. 12/05/2021 7:25 AM Medications Administered Current Inpatient Medications Acetaminophen (Acetaminophen 325 Mg Tab) 650 mg PO Q4H PRN PRN Reason: Pain or Fever Stop: 01/03/22 22:43 Dextrose (Dextrose 50% 50 Ml Syringe) 25 - 50 ml IV UD PRN; Protocol PRN Reason: Hypoglycemia Protocol Stop: 01/03/22 22:43 Furosemide (Furosemide 20 Mg Tab) 20 mg PO [facility] Stop: 01/04/22 08:59 Last Admin: 12/05/21 08:49 Dose: 20 mg Documented by: Glucagon (Glucagon For Inj 1 Mg Vial) 1 mg SQ UD PRN; Protocol PRN Reason: Hypoglycemia Protocol Stop: 01/03/22 22:43 Glucose (Glucose 10 Tabs/Tube) 4 - 8 tabs PO UD PRN; Protocol PRN Reason: Hypoglycemia Protocol Stop: 01/03/22 22:43 Glucose (Glucose 40% Gel 15 Gm Tube) 15 - 30 gm PO UD PRN; Protocol PRN Reason: Hypoglycemia Protocol Stop: 01/03/22 22:43 Dexamethasone 4 mg/ Syringe 1 mls @ 1 mls/min IV Q6H [facility] Stop: 01/04/22 05:59 Last Admin: 12/05/21 17:02 Dose: 1 mls/min Documented by: Insulin Aspart (Insulin Aspart Per Unit) 0 units SC ACHS [facility] Stop: 01/04/22 07:29 Last Admin: 12/05/21 16:58 Dose: 2 units Documented by: Insulin Glargine (Insulin Glargine Solostar 100 Units/Ml 3 Ml Pen) 13 units SC BID [facility] Stop: 01/03/22 22:43 Last Admin: 12/05/21 08:53 Dose: 13 units Documented by: Levetiracetam (Levetiracetam 250 Mg Tab) 750 mg PO BID [facility] Stop: 01/04/22 20:59 Levothyroxine Sodium (Levothyroxine Sodium 25 Mcg Tablet) 25 mcg PO DAILYBB [facility] Stop: 01/04/22 06:29 Last Admin: 12/05/21 05:40 Dose: 25 mcg Documented by: Miscellaneous (Carbohydrates For Hypoglycemia ) 15 - 30 gm PO UD PRN PRN Reason: Hypoglycemia Protocol Stop: 01/03/22 22:43 Pantoprazole Sodium (Pantoprazole 40 Mg Tab) 40 mg PO QAM [facility] Stop: 01/04/22 08:59 Last Admin: 12/05/21 08:48 Dose: 40 mg Documented by: Rosuvastatin Calcium (Rosuvastatin Calcium 10 Mg Tab) 10 mg PO HS [facility] Stop: 01/04/22 20:59 Sertraline HCl (Sertraline Hcl 50 Mg Tablet) 25 mg PO DAILY [facility] Stop: 01/04/22 08:59 Last Admin: 12/05/21 08:47 Dose: 25 mg Documented by: Vitamin D (Cholecalciferol 1,000 Units 25 Mcg Tab) 1,000 units PO QAM [facility] Stop: 01/04/22 08:59 Last Admin: 12/05/21 08:49 Dose: 1,000 units Documented by:
[2021-12-05] MEDS: levETIRAcetam 250 MG TAB PO SCH (22:31)
[2021-12-05] MEDS: ROSUVASTATIN CALCIUM 10 MG TAB PO SCH (22:31)
[2021-12-05 22:58] LABS: Appearance Urine Clear (Clear); Bacteria Urine Automated Negative (Negative); Bilirubin Urine Negative (Negative); Blood Urine Negative (Negative); Color Urine Yellow; Glucose Urine UA Trace (Negative); Ketones Urine Negative (Negative); Leukocyte Esterase Urine Negative (Negative); Nitrite Urine Negative (Negative); Protein Urine 3+ (Negative); RBC Urine Automated 0-4 /hpf (0-4); Specific Gravity Urine 1.015 (1.000-1.030); Urobilinogen Urine Negative (Negative)
[2021-12-06] MEDS: dexAMETHasone 4 MG in SYRINGE 0 ML IV SCH ×4 (00:08→16:51)
[2021-12-06] MEDS ORDERED: dexAMETHasone 4 MG in SYRINGE 0 ML IV ONE (01:00)
[2021-12-06] MEDS: LEVOTHYROXINE SODIUM 25 MCG TABLET PO SCH (06:16)
[2021-12-06 07:02] LABS: Basophils # (auto) 0.01 K/uL (0-0.2); Basophils % (auto) 0.1 %; Hematocrit (blood only) 37.3 % (37-47); Hemoglobin 12.7 g/dL (12.0-16.0); Immature Granulocytes # (auto) 0.03 K/uL (0.00-0.02); Immature Granulocytes % (auto) 0.2 %; Lymphocytes # (auto) 0.63 K/uL (1.2-3.4); Lymphocytes % (auto) 4.8 %; Mean Corpuscular Hemoglobin 30.6 pg (25-34); Mean Corpuscular Volume 89.9 fL (80-100); Mean Platelet Volume 10.1 fL (7.4-10.4); Monocytes # (auto) 0.37 K/uL (0.11-0.59); Monocytes % (auto) 2.8 %; Neutrophils # (auto) 12.08 K/uL (1.4-6.5); Neutrophils % (auto) 92.1 %; Platelet Count 273 K/uL (130-400); RDW Coefficient of Variation 12.9 % (11.5-14.5); RDW Standard Deviation 42.2 fL (36.4-46.3); Red Blood Count 4.15 M/uL (4.2-5.4); White Blood Count 13.12 K/uL (4.8-10.8)
[2021-12-06 07:31] LABS: BUN Creatinine Ratio 39.5 (10-20); Calcium 8.9 mg/dl (8.5-10.1); Creatinine Clr Calc Pharmacy 41.6 ml/min; Est GFR (African American) 74.5 ml/min; Est GFR (Non-African American) 64.3 ml/min; Potassium 4.1 mmol/L (3.5-5.1)
[2021-12-06] MEDS: CHOLECALCIFEROL 1,000 UNITS 25 MCG TAB PO SCH (08:41)
[2021-12-06] MEDS: PANTOprazole 40 MG TAB PO SCH (08:41)
[2021-12-06] MEDS: FUROSEMIDE 20 MG TAB PO SCH (08:41)
[2021-12-06] MEDS: levETIRAcetam 250 MG TAB PO SCH ×2 (08:42→21:04)
[2021-12-06] MEDS: INSULIN GLARGINE SOLOSTAR 100 UNITS/ML 3 ML PEN SC SCH ×2 (08:42→21:02)
[2021-12-06] MEDS: SERTRALINE HCL 50 MG TABLET PO SCH (08:42)
[2021-12-06] MEDS: INSULIN ASPART PER UNIT SC SCH ×4 (08:48→21:01)
--- NOTE | 2021-12-06 11:22 | Hospitalist Progress Note ---
Date of Service December 06, 2021 Assessment & Plan (1) Metastatic cancer to brain: Plan: - Repeat MRI brain 12/05- Multiple enhancing foci of metastatic disease, the largest lesion has increased in size somewhat from prior exam. There is associated vasogenic edema, mass effect, and mild midline shift. - Seen by radiation oncology and neurology- recommendations noted - Spoke with radiation oncology who recommeded decadron 4 mg tid x7 day, bid x7 day and daily x7 day. - OP f/u with neurosurgery at [facility] on 12/12 - Continue keppra - Palliative evaluation pending - PT/OT (2) Seizure: Plan: EEG with no epileptiform activities noted. Seen by neuro- continue home dose of keppra 750 bid- if seizure activities noted, will need to increase dose to 1000 bid at that juncture. (3) Diabetes mellitus, type 2: Plan: Hyperglycemia worsened with steroid. Insulin adjusted. (4) Immunosuppressed status: Plan: Continues on infliximab for UC and steroids recently. (5) Ulcerative colitis: Plan: Infliximab, follows with GI, denies recent flares or issues. (6) Hypothyroidism: Plan: chronic, stable, repeat TSH normal. Continue Levothyroxine per home regimen. (7) Non-small cell cancer of right lung: Plan: s/p partial lung [place] [address] [place]. Follows with Dr. Villeda- [facility] (8) COPD (chronic obstructive pulmonary disease): Plan: chronic, stable. No wheezing on exam. Continue nocturnal oxygen. (9) Osteoporosis: Plan: Denosumab infusions as outpatient. (10) Hypomagnesemia: Plan: resolved with repletion (11) Depression: Plan: chronic, continue sertraline per home regimen. (12) Hypokalemia: Plan: Resolved with repletion (13) Protein calorie malnutrition: Plan: severe PEM in setting of her malignancy. 11.6% weight loss in past 6 months. Seen by dietitian, recommendations noted- nutritional supplements added. (14) DVT prophylaxis: Plan: SCDs/chemoprophylaxis contraindicated in setting of brain mets. Plan: Dispo- Pending palliative care evaluation. PT/OT. Anticipate discharge tomorrow home with therapy but she is willing to go to rehab if needed. Admission and Anticipated Discharge Date Admission Date: December 04, 2021 Subjective Seen and examined at bedside. Denies any new issues. States he walked better today but still has issues with her 'brain hand coordination' and does not feel safe to go home today as she lives by herself. She has not been getting good sleep here but declines any new meds to help with her sleep. No fever, chills, chest pain, shortness of breath. Physical Exam Physical Exam: General: Sitting comfortably in chair, not in distress, on room air HEENT: EOMI, [place], MMM Chest: Clear breath sounds bilaterally, no wheezes or crackles CVS: Regular rate and rhythm, normal heart sounds, no murmur Abdomen: Soft, non tender, not distended, normal bowel sounds Neuro: Awake, alert, oriented, conversing well, non focal. Strength 5/5 in all extremities. Finger-nose test on left side slightly clumsy compared to the right. Extremities: No cyanosis, clubbing or edema Results & Data Results & Data ([facility]) Vital Signs (Past 12 Hours) Vital Signs Temp Pulse Pulse Resp BP Pulse Ox 12/06/21 10:46 75 12/06/21 07:14 36.5 C 71 16 159/77 H 94 12/06/21 03:48 36.6 C 70 16 133/70 98 12/05/21 23:32 37.1 C 88 16 148/81 H 92 Laboratory Results Short CBC 12/06/21 Range/Units 06:08 WBC 13.12 H (4.8-10.8) K/uL Hgb 12.7 (12.0-16.0) g/dL Hct 37.3 (37-47) % Plt Count 273 (130-400) K/uL BMP 12/06/21 06:08 Sodium 138 Potassium 4.1 D Chloride 105 Carbon Dioxide 26 BUN 34 H Creatinine 0.86 Glucose 191 H Calcium 8.9 Urine 12/05/21 Range/Units 21:40 Urine Color Yellow Urine Appearance Clear (Clear) Urine pH 5.0 (4.5-7.5) Ur Specific [place] 1.015 (1.000-1.030) Urine Protein 3+ H (Negative) Urine Glucose (UA) Trace H (Negative) Medications Administered Current Inpatient Medications Acetaminophen (Acetaminophen 325 Mg Tab) 650 mg PO Q4H PRN PRN Reason: Pain or Fever Stop: 01/03/22 22:43 Dextrose (Dextrose 50% 50 Ml Syringe) 25 - 50 ml IV UD PRN; Protocol PRN Reason: Hypoglycemia Protocol Stop: 01/03/22 22:43 Furosemide (Furosemide 20 Mg Tab) 20 mg PO QAM [facility] Stop: 01/04/22 08:59 Last Admin: 12/06/21 08:41 Dose: 20 mg Documented by: Glucagon (Glucagon For Inj 1 Mg Vial) 1 mg SQ UD PRN; Protocol PRN Reason: Hypoglycemia Protocol Stop: 01/03/22 22:43 Glucose (Glucose 10 Tabs/Tube) 4 - 8 tabs PO UD PRN; Protocol PRN Reason: Hypoglycemia Protocol Stop: 01/03/22 22:43 Glucose (Glucose 40% Gel 15 Gm Tube) 15 - 30 gm PO UD PRN; Protocol PRN Reason: Hypoglycemia Protocol Stop: 01/03/22 22:43 Dexamethasone 4 mg/ Syringe 1 mls @ 1 mls/min IV Q6H [facility] Stop: 01/04/22 05:59 Last Admin: 12/06/21 11:24 Dose: 1 mls/min Documented by: Insulin Aspart (Insulin Aspart Per Unit) 0 units SC ACHS [facility] Stop: 01/04/22 07:29 Last Admin: 12/06/21 08:48 Dose: 11 units Documented by: Insulin Glargine (Insulin Glargine Solostar 100 Units/Ml 3 Ml Pen) 16 units SC BID [facility] Stop: 01/05/22 08:59 Last Admin: 12/06/21 08:42 Dose: 16 units Documented by: Levetiracetam (Levetiracetam 250 Mg Tab) 750 mg PO BID [facility] Stop: 01/04/22 20:59 Last Admin: 12/06/21 08:42 Dose: 750 mg Documented by: Levothyroxine Sodium (Levothyroxine Sodium 25 Mcg Tablet) 25 mcg PO DAILYBB [facility] Stop: 01/04/22 06:29 Last Admin: 12/06/21 06:16 Dose: 25 mcg Documented by: Miscellaneous (Carbohydrates For Hypoglycemia ) 15 - 30 gm PO UD PRN PRN Reason: Hypoglycemia Protocol Stop: 01/03/22 22:43 Pantoprazole Sodium (Pantoprazole 40 Mg Tab) 40 mg PO QAM [facility] Stop: 01/04/22 08:59 Last Admin: 12/06/21 08:41 Dose: 40 mg Documented by: Rosuvastatin Calcium (Rosuvastatin Calcium 10 Mg Tab) 10 mg PO [facility] Stop: 01/04/22 20:59 Last Admin: 12/05/21 22:31 Dose: 10 mg Documented by: Sertraline HCl (Sertraline Hcl 50 Mg Tablet) 25 mg PO DAILY [facility] Stop: 01/04/22 08:59 Last Admin: 12/06/21 08:42 Dose: 25 mg Documented by: Vitamin D (Cholecalciferol 1,000 Units 25 Mcg Tab) [facility] [place] Stop: 01/04/22 08:59 Last Admin: 12/06/21 08:41 Dose: 1,000 units Documented by: (1) Protein calorie malnutrition Protein-calorie malnutrition severity: severe Qualified Code(s): E43 - Unspecified severe protein-calorie malnutrition
[2021-12-06] MEDS ORDERED: hydrALAZINE HCL 20 MG/ML VIAL IV PRN (17:17)
[2021-12-06] MEDS ORDERED: amLODIPine BESYLATE 5 MG TAB PO SCH (17:30)
[2021-12-06] MEDS: lisinopril 5 MG TAB PO SCH (17:59)
[2021-12-06] MEDS ORDERED: cloNIDine HCL 0.1 MG TAB PO ONE (20:19)
[2021-12-06] MEDS: ROSUVASTATIN CALCIUM 10 MG TAB PO SCH (21:04)
[2021-12-07] MEDS: dexAMETHasone 4 MG in SYRINGE 0 ML IV SCH ×3 (00:28→11:48)
[2021-12-07] MEDS: LEVOTHYROXINE SODIUM 25 MCG TABLET PO SCH (05:42)
[2021-12-07 05:59] LABS: Hematocrit (blood only) 38.2 % (37-47); Hemoglobin 12.9 g/dL (12.0-16.0); Immature Granulocytes # (auto) 0.03 K/uL (0.00-0.02); Immature Granulocytes % (auto) 0.2 %; Lymphocytes # (auto) 0.77 K/uL (1.2-3.4); Lymphocytes % (auto) 6.1 %; Mean Corpuscular Hemoglobin 31.4 pg (25-34); Mean Corpuscular Hgb Conc 33.8 g/dL (32-36); Mean Corpuscular Volume 92.9 fL (80-100); Mean Platelet Volume 9.9 fL (7.4-10.4); Monocytes # (auto) 0.47 K/uL (0.11-0.59); Monocytes % (auto) 3.7 %; Neutrophils # (auto) 11.43 K/uL (1.4-6.5); Platelet Count 282 K/uL (130-400); RDW Coefficient of Variation 13.2 % (11.5-14.5); RDW Standard Deviation 44.8 fL (36.4-46.3); Red Blood Count 4.11 M/uL (4.2-5.4)
[2021-12-07 08:02] VITALS: TEMP 97.5
[2021-12-07] MEDS: PANTOprazole 40 MG TAB PO SCH (08:11)
[2021-12-07] MEDS: SERTRALINE HCL 50 MG TABLET PO SCH (08:11)
[2021-12-07] MEDS: INSULIN ASPART PER UNIT SC SCH ×3 (08:11→16:45)
[2021-12-07] MEDS: lisinopril 5 MG TAB PO SCH (08:11)
[2021-12-07] MEDS: levETIRAcetam 250 MG TAB PO SCH (08:12)
[2021-12-07] MEDS: INSULIN GLARGINE SOLOSTAR 100 UNITS/ML 3 ML PEN SC SCH (08:12)
[2021-12-07] MEDS: FUROSEMIDE 20 MG TAB PO SCH (08:12)
[2021-12-07] MEDS: CHOLECALCIFEROL 1,000 UNITS 25 MCG TAB PO SCH (08:12)
[2021-12-07 11:26] VITALS: BP 99/50; PULSE 54; O2SAT 96
--- NOTE | 2021-12-07 13:48 | Communication Note ---
Date of Service: December 07, 2021 Current Inpatient Medications Acetaminophen (Acetaminophen 325 Mg Tab) 650 mg PO Q4H PRN PRN Reason: Pain or Fever Stop: 01/03/22 22:43 Dexamethasone (Dexamethasone 4 Mg Tab) 4 mg PO TID [facility] Stop: 01/06/22 17:59 Dextrose (Dextrose 50% 50 Ml Syringe) 25 - 50 ml IV UD PRN; Protocol PRN Reason: Hypoglycemia Protocol Stop: 01/03/22 22:43 Furosemide (Furosemide 20 Mg Tab) 20 mg PO QAM [facility] Stop: 01/04/22 08:59 Last Admin: 12/07/21 08:12 Dose: 20 mg Documented by: Glucagon (Glucagon For Inj 1 Mg Vial) 1 mg SQ UD PRN; Protocol PRN Reason: Hypoglycemia Protocol Stop: 01/03/22 22:43 Glucose (Glucose 10 Tabs/Tube) 4 - 8 tabs PO UD PRN; Protocol PRN Reason: Hypoglycemia Protocol Stop: 01/03/22 22:43 Glucose (Glucose 40% Gel 15 Gm Tube) 15 - 30 gm PO UD PRN; Protocol PRN Reason: Hypoglycemia Protocol Stop: 01/03/22 22:43 Hydralazine HCl (Hydralazine Hcl 20 Mg/Ml Vial) 5 mg IV Q6H PRN PRN Reason: HTN Stop: 01/05/22 17:16 Last Admin: 12/06/21 19:35 Dose: 5 mg Documented by: Insulin Aspart (Insulin Aspart Per Unit) 0 units SC ACHS [facility] Stop: 01/04/22 07:29 Last Admin: 12/07/21 11:48 Dose: 10 units Documented by: Insulin Glargine (Insulin Glargine Solostar 100 Units/Ml 3 Ml Pen) 16 units SC BID [facility] Stop: 01/05/22 08:59 Last Admin: 12/07/21 08:12 Dose: 16 units Documented by: Levetiracetam (Levetiracetam 250 Mg Tab) 750 mg PO BID [facility] Stop: 01/04/22 20:59 Last Admin: 12/07/21 08:12 Dose: 750 mg Documented by: Levothyroxine Sodium (Levothyroxine Sodium 25 Mcg Tablet) 25 mcg PO DAILYBB [facility] Stop: 01/04/22 06:29 Last Admin: 12/07/21 05:42 Dose: 25 mcg Documented by: Lisinopril (Lisinopril 5 Mg Tab) 5 mg PO DAILY [facility] Stop: 01/05/22 17:29 Last Admin: 12/07/21 08:11 Dose: 5 mg Documented by: Miscellaneous (Carbohydrates For Hypoglycemia ) 15 - 30 gm PO UD PRN PRN Reason: Hypoglycemia Protocol Stop: 01/03/22 22:43 Pantoprazole Sodium (Pantoprazole 40 Mg Tab) 40 mg PO QAM [facility] Stop: 01/04/22 08:59 Last Admin: 12/07/21 08:11 Dose: 40 mg Documented by: Rosuvastatin Calcium (Rosuvastatin Calcium 10 Mg Tab) 10 mg PO HS [facility] Stop: 01/04/22 20:59 Last Admin: 12/06/21 21:04 Dose: 10 mg Documented by: Sertraline HCl (Sertraline Hcl 50 Mg Tablet) 25 mg PO DAILY [facility] Stop: 01/04/22 08:59 Last Admin: 12/07/21 08:11 Dose: 25 mg Documented by: Vitamin D (Cholecalciferol 1,000 Units 25 Mcg Tab) 1,000 units PO QAM [facility] Stop: 01/04/22 08:59 Last Admin: 12/07/21 08:12 Dose: 1,000 units Documented by:
[2021-12-07] MEDS ORDERED: dexAMETHasone 4 MG TAB PO SCH ×2 (14:00→18:00)
--- NOTE | 2021-12-07 14:11 | Discharge Summary ---
Date of Service December 07, 2021 Admission HPI Per Admitting Provider 81 yo F with h/o brain mets from lung cancer presents with "a disconnection between my left hand and eyes." She was dropping objects with her left hand today that began all of a sudden. She was very angry on my arrival to the room stating that she was upset with her headache and having asked her nurse for Tylenol but not having yet received it. I left the room, found the nurse and asked him about the Tylenol which he was getting. She remained angry, insulting and physically aggressive throughout the exam limiting the history I could obtain from her. I did review her outpatient records which indicated symptoms like this happening in the past. She has recently had two MRIs one month apart, the last was in October 30 and revealed an increase in extent of the enhancement in brain mets and worsened vasogenic edema with no new lesions identified at that time. She did followup with radiation oncology regarding this and was placed on decadron. Interestingly, at that time she noted a discoordination between her brain and her hands, noting hands don't always do what her brain wants then to. After two weeks of taking decadron 4mg daily, she was improved but not completely. 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 ROS reveals a headache which she and her sister report is new for her. Denies visual changes, acute changes in her breathing, chest pain, abdominal issues, urinary issues or any changes in her hronic loose stool. She has a h/o UC and is on infliximab for this, denying any recent flares. She does have a h/o seizures and takes Keppra faithfully per her report. She remained very upset throughout the short time I was with her, telling her sister she was disgusted with the care, reluctantly answering questions in a sarcastic manner, and rushing through physical exam findings or exaggerating movements such as placing her arms out straight in front of her very fast and hard. When asked to perform a hand squeeze, she dug her fingernail into my finger very hard. All of this limited my ability to gauge if dysfunction was present but it did appear she was still somewhat struggling with finger to nose coordination with the left finger, and with using the left hand to adjust the mask on her face. She kept her right leg very tensed up on exam for reflexes, and it was tough to see any actual reflex in the right knee. She demonstrated full strength in the right leg. Notably, I did consent her for a physical exam prior to starting as she was so upset, and she did say this was ok. Also, of note, [facility], as she was unable/unwilling to review these. Principal Diagnosis Worsening brain mets with vasogenic edema Discharge Data Allergies Allergy/AdvReac Type Severity Reaction Status Date / Time pembrolizumab [From Keytruda] AdvReac Mild Diarrhea Verified 12/04/21 20:50 Consultations 12/04/21 20:41 ED Decision to Admit Stat 12/04/21 22:44 Consult Neurology Routine 12/04/21 22:55 Consult Radiation Oncology Routine 12/05/21 08:58 Consult Palliative Care Routine Ordered Studies 12/04/21 19:23 CT head/brain wo con Stat 12/04/21 21:24 MR brain seizure wo/w con Stat Hospital Course (1) Metastatic cancer to brain: - Repeat MRI brain 12/05- Multiple enhancing foci of metastatic disease, the largest lesion has increased in size somewhat from prior exam. There is associated vasogenic edema, mass effect, and mild midline shift. - Seen by radiation oncology and neurology- recommendations noted - Spoke with radiation oncology who recommeded decadron 4 mg tid x7 day, bid x7 day and daily x7 day. - OP f/u with neurosurgery at [facility] on 12/12 - Continue keppra (2) Seizure: EEG with no epileptiform activities noted. Seen by neuro- continue home dose of keppra 750 bid- if seizure activities noted, will need to increase dose to 1000 bid at that juncture. (3) Diabetes mellitus, type 2: Hyperglycemia worsened with steroid. On glipizide and tradjenta at home but being managed with insulin here. Insulin being adjusted here for better blood sugar control and will need to be adjusted further at rehab depending on her glycemic control and steroid taper. She will be placed back on glipizide and tradjenta at increased dose, as before when discharging home- she does have a glycemic pharmacist who she follows. (4) Immunosuppressed status: Continues on infliximab for UC and steroids recently. (5) Ulcerative colitis: Infliximab, follows with GI, denies recent flares or issues. (6) Hypothyroidism: chronic, stable, repeat TSH normal. Continue Levothyroxine per home regimen. (7) Non-small cell cancer of right lung: s/p partial lung [place] [address] Covington. Follows with Dr. Tran Oncology (8) COPD (chronic obstructive pulmonary disease): chronic, stable. No wheezing on exam. Continue nocturnal oxygen. (9) Osteoporosis: Denosumab infusions as outpatient. (10) Hypomagnesemia: resolved with repletion (11) Depression: chronic, continue sertraline per home regimen. (12) Hypokalemia: Resolved with repletion (13) Protein calorie malnutrition: severe PEM in setting of her malignancy. 11.6% weight loss in past 6 months. Seen by dietitian, recommendations noted- nutritional supplements added. (14) Hypertension: Continue norvasc. Total Time Total Time Spent Total Time Spent (In Minutes): 35 Discharge Plan Discharge Items Patient Disposition: Transfer Inpatient Rehab Fac Reason For Visit: STROKE VS SEIZURE Discharge Diagnosis: Worsening brain mets with vasogenic edema Activity: Resume your previous activity Non-emergency contact: Primary Care Provider Call non-emergency contact if: you have any medication questions and your symptoms worsen Follow-up/Referrals: Danny Ibarra MD [Primary Care Provider] - Sebastián Acevedo MD [Outside Practitioners] - 12/12/21 1:15 pm (Dr. Sebastián Acevedo, [facility]. [address] [place] [address].[address]. . ) Diet: Carb Consistent or DM2 Addtl Attending Provider Instructions: Your symptoms are from the brain metastasis and the swelling but it is improving with decadron. Continue decadron taper as prescribed (1 tab 3 times daily for 1 week, 1 tab 2 times daily for 1 week and 1 tab daily for 1 week). You might need longer if your symptoms are persistent. Since you are going to rehab, you will be on insulin there for better blood sugar control- the rehab doctor will manage that- once you go home, you will be back on your tradjenta and glipizide at increased dose until you are on steroids- follow with your pharmacist for the instructions as before Follow up with the neurosurgery on December 12 as scheduled Pending Studies at Discharge: No Stand-Alone Forms: My [facility] Skilled Items Patient informed of condition?: Yes DNR: No Discharge Level of Care: Acute rehab Communicable Disease: No Discharge Prognosis: Stable Lines: None Urinary Catheter: No Medications and DC Order Prescriptions: New dexamethasone 4 mg Tablet 4 mg PO UD Qty: 60 RF: 0 insulin aspart U-100 [Novolog U-100 Insulin aspart] 100 unit/mL Solution 7 unit SC ACHS Qty: 10 RF: 0 Lantus Solostar U-100 Insulin 100 unit/mL (3 mL) Insulin Pen 20 unit SC BID Qty: 15 RF: 0 Continued amlodipine 2.5 mg tablet 2.5 mg PO DAILY RF: 0 Prolia 60 mg/mL syringe 60 mg subcut Q6MO RF: 0 (DME) lancets [[employer] [place] [place] Delica Lancets] 33 gauge misc See Rx Instructions .ROUTE .MEDSUPPLY Qty: 100 RF: 0 (DME) blood-glucose meter [[employer] [place] [place] Verio Flex Start] Kit See Rx Instructions .ROUTE .MEDSUPPLY Qty: 1 RF: 0 (DME) Oxygen Home Liters Per Minute See Rx Instructions .ROUTE .MEDSUPPLY Qty: 1 RF: 0 Inflectra 100 mg recon soln See Rx Instructions IV .COMPLEX RF: 0 amoxicillin 500 mg tablet 2,000 mg PO ONCE PRN (Reason: prophylaxis) Qty: 4 RF: 2 omeprazole 20 mg Capsule,Delayed Release(Dr/Ec) 20 mg PO QAM RF: 0 cholecalciferol (vitamin D3) 1,000 unit Capsule 1,000 unit PO QAM RF: 0 levothyroxine 25 mcg tablet 25 mcg PO DAILYBB RF: 0 levetiracetam 750 mg tablet 750 mg PO BID RF: 0 furosemide 20 mg Tablet 20 mg PO QAM RF: 0 lorazepam 0.5 mg Tablet 0.5 mg PO HS PRN (Reason: Anxiety) RF: 0 rosuvastatin 10 mg Tablet 10 mg PO HS RF: 0 aspirin 81 mg Tablet,Delayed Release (Dr/Ec) 81 mg PO DAILY RF: 0 sertraline 25 mg tablet 25 mg PO DAILY RF: 0 albuterol sulfate [Ventolin HFA] 90 mcg/actuation HFA aerosol inhaler 2 puff INHALATION UD PRN (Reason: Shortness Of Breath Or Wheezing) RF: 0 Discontinued Tradjenta 5 mg tablet 5 mg PO QAM RF: 0 glipizide 5 mg tablet 15 mg PO BID RF: 0 Discharge Orders: Discharge Order (Routine); Ordered 12/07/21 Ordered By: Rafy Keenan/Other Patient Handouts: Managing Type 2 Diabetes Admission Data Admit Date/Time: 12/04/21 21:09 Attending Provider: Rafy Silva Admit Provider: Sunita Cast Primary Care Provider: Danny Ibarra Other Providers: Sunita Cast ; Allen Connor ; Patricia Villeda ; Ct Silverman ; Becky Montana ; [facility]
== END 2021-12-07 17:32 | DRG 54 ==
LOC: ED 19:06 → SUATTDRO 21:09 → 2E 21:09

== ENCOUNTER 2022-04-04 16:48 | Inpatient (IN) ==
[2022-04-04] MEDS ORDERED: LORazepam 0.5 MG TAB PO STA (18:05)
[2022-04-04 18:19] LABS: Basophils # (auto) 0.03 K/uL (0-0.2); Basophils % (auto) 0.5 %; Eosinophils # (auto) 0.04 K/uL (0-0.50); Eosinophils % (auto) 0.6 %; Hematocrit (blood only) 35.3 % (34.1-44.9); Hemoglobin 11.6 g/dl (12.0-16.0); Immature Granulocytes # (auto) 0.01 K/uL (0.00-0.02); Immature Granulocytes % (auto) 0.2 %; Lymphocytes # (auto) 2.58 K/uL (1.2-3.4); Lymphocytes % (auto) 39.8 %; Mean Corpuscular Hemoglobin 29.6 pg (25.0-34.0); Mean Corpuscular Hgb Conc 32.9 g/dL (32.0-36.0); Mean Corpuscular Volume 90.1 fL (80.0-100.0); Mean Platelet Volume 10.4 fL (9.4-12.3); Monocytes # (auto) 0.67 K/uL (0.24-0.82); Monocytes % (auto) 10.3 %; Neutrophils # (auto) 3.15 K/uL (1.4-6.5); Neutrophils % (auto) 48.6 %; Platelet Count 372 K/uL (130-400); RDW Coefficient of Variation 12.6 % (11.5-14.5); RDW Standard Deviation 41.4 fL (36.4-46.3); Red Blood Count 3.92 M/uL (3.93-5.22); White Blood Count 6.48 K/ul (4.8-10.8)
[2022-04-04 18:31] LABS: Partial Thromboplastin Time 26.8 Seconds (21.0-31.0); Prothrombin Time 10.7 Seconds (9.0-12.0)
[2022-04-04 19:09] LABS: BUN Creatinine Ratio 24.2 (10-20); Calcium 9.1 mg/dl (8.5-10.1); Creatinine Clr Calc Pharmacy 40.8 ml/min; Est GFR (African American) 69.1 ml/min; Est GFR (Non-African American) 59.6 ml/min; Potassium 2.5 mmol/L (3.5-5.1); Troponin I High Sensitivity 13.5 pg/ml (0-14)
--- NOTE | 2022-04-04 19:23 | XRay Report ---
SINGLE VIEW CHEST CLINICAL HISTORY: Atypical chest pain. FINDINGS: 2 AP, portable, upright chest radiographs are compared to study dated 12/04/2021 and correla oj with chest CT dated 11/12/2021. The examination is degraded by portable technique and patient rotat ion. The heart is mildly enlarged noting atherosclerotic calcification of the thoracic aorta. Emphys stacy and chronic additional thickening is similar to previous. Postoperative change and volume loss is again seen on the right with trace pleural fluid at the right lung base. Scarring/atelectasis is not ed in both lung bases. No pneumothorax is seen. The skeletal structures are osteopenic. The bony thor ax is grossly intact. Arthritic changes seen in the shoulders comment noting postoperative change on the right. Superior subluxation of the humeral heads suggest chronic bilateral rotator cuff injuries. IMPRESSION: 1. No acute cardiopulmonary abnormalities identified. 2. Cardiomegaly, emphysema, postoperative change in the right lung, and additional chronic changes ar e similar to previous. ACT 112: Negative or not required by law. Electronically signed by: Tylor Galvan M.D. 04/04/2022 7:21 PM
[2022-04-04] MEDS ORDERED: OPTIRAY 300 500mL IV ONE (20:47)
[2022-04-04] MEDS: MAGNESIUM SULFATE / D5W 1 GM/100 ML BAG IV SCH ×2 (21:01→21:36)
--- NOTE | 2022-04-04 21:10 | CT Scan Report ---
CT SCAN OF THE BRAIN WITHOUT IV CONTRAST CLINICAL HISTORY: Generalized weakness. Metastatic cancer. COMPARISON STUDY: CT and MRI of the brain dated 12/04/2021. TECHNIQUE: Unenhanced axial CT scan of the brain is performed from the vertex to the skull base. A do se lowering technique was utilized adhering to the principles of ALARA. CT DOSE: 842.69 mGy.cm FINDINGS: Brain parenchyma: There is slightly hyperdense mass lesion is identified in the right parietal lobe o n axial image #21 measuring 2.1 cm and within the left temporal lobe on image #16 measuring 1.0 cm. T hese demonstrate significant surrounding edema and are consistent with metastatic disease. The showed gradient signal abnormality on the prior MRI and may be hemorrhagic. The degree of edema throughout the left hemisphere has significantly increased as compared to 12/04/2021. There is effacement of over lying cortical sulci bilaterally. There is no midline shift. No extra-axial fluid collection is ident ified. There is no evidence of acute territorial ischemia by CT criteria. There is age-related involu tional change noting minimal recurrent hepatic disease. Ventricles, sulci, cisterns: Prominent secondary to involutional change. Intracranial vasculature: There is atherosclerotic calcification of the cavernous carotid and vertebr al arteries. Calvarium: Unremarkable. Sinuses and mastoids: There is trace mucosal thickening within the left maxillary antrum. The paranas al sinuses are otherwise clear. The mastoid air cells are well pneumatized. Orbits: The bony orbits are grossly intact. There are bilateral ocular lens implants. IMPRESSION: 1. Again seen is evidence of bilateral intracranial metastatic disease. These lesions appear hyperden se, and when correlated with the 12/04/2021 MRI of the brain are likely hemorrhagic. 2. There is significant edema around these lesions. This has significantly increased throughout the l eft hemisphere as compared to 12/04/2021. 3. There is no midline shift or evidence of acute territorial ischemia by CT criteria. ACT 112: Negative or not required by law. Electronically signed by: Tylor Galvan M.D. 04/04/2022 9:07 PM
--- NOTE | 2022-04-04 21:20 | CT Scan Report ---
CT ANGIOGRAM OF THE CHEST CLINICAL HISTORY: Atypical chest pain. Generalized weakness. COMPARISON STUDY: Chest CT dated 11/12/2021. Chest x-ray dated 04/04/2022. TECHNIQUE: Following the IV administration of 111 cc of Optiray 300, CT angiogram of the chest was pe rformed from the upper abdomen to the thoracic inlet utilizing the pulmonary embolus protocol. Images are reviewed in the axial, sagittal, and coronal planes. 3-D MIPS images are created and assessed. I V contrast was administered without complication. A dose lowering technique was utilized adhering to the principles of ALARA. The examination is degraded by motion artifact, as well as by streak artifa ct from the arms which could not be elevated above the chest. FINDINGS: Thyroid: Atrophic. Thoracic aorta: There is atherosclerotic calcification of the thoracic aorta, which is normal in sanjuanita pauline and demonstrates standard 3-vessel arch anatomy. No dissection is seen. Pulmonary vasculature: The main pulmonary arteries are dilated suggesting pulmonary artery hypertensi on. There are no filling defects identified in main, lobar, or segmental pulmonary branches to sugges t pulmonary embolus. Heart: The heart is mildly enlarged and without pericardial effusion. The coronary arteries are dense ly calcified. Lungs and pleural spaces: Advanced emphysematous change is similar to previous, and there is postoper ative change and volume loss from right middle and lower lobe resection. There is no airspace consoli dation typical for pneumonia. The trachea and central airways are clear. Trace pleural fluid is again seen at the right lung base. Parenchymal scarring is noted at the right apex. There are scattered ca lcified granulomas. Numerous scattered nodular opacities throughout both lungs are similar to previou s. A patient financial representative 3 mm nodule in the right lung is seen on image #109. An irregular 4 mm nodule in the left upper lobe is seen on image #203. Mediastinum: There is no mediastinal lymphadenopathy. Robyn: Clear. Axillae: There is no axillary lymphadenopathy. Upper abdomen: A 1.6 cm cyst is seen in the left lobe of the liver. A small hiatal hernia is incident ally noted. Skeletal structures: The skeletal structures are osteopenic. Spondylotic change is noted in the thora cic spine. No lytic or blastic bony lesions are seen. Arthritic change is noted in the shoulders with evidence of previous surgery on the right. IMPRESSION: 1. There is no evidence of pulmonary embolus in the main, lobar, or segmental pulmonary arteries. 2. Again seen is cardiomegaly and emphysema with postoperative change from right-sided pulmonary rese ction. 3. There is no airspace consolidation typical for pneumonia. 4. Scattered subcentimeter pulmonary nodules are pathologically indeterminant and unchanged from prio r studies. 5. Trace pleural fluid at the right lung base is unchanged and likely on a postoperative basis. 6. Additional findings as above ACT 112: Negative or not required by law. Electronically signed by: Tylor Galvan M.D. 04/04/2022 9:17 PM
[2022-04-04] MEDS ORDERED: dexAMETHasone 10 MG in SYRINGE 0 ML IV ONE (21:39)
[2022-04-04] MEDS ORDERED: DEXAMETHASONE SOD INJ 4 MG/ML VIAL ONE (21:43)
[2022-04-04] MEDS ORDERED: NSS + 20MEQ KCL 20 MEQ/1,000 ML BAG IV SCH (21:45)
--- NOTE | 2022-04-04 21:47 | Emergency Department Note ---
History of Present Illness General Chief complaint: Dizziness Time Seen by Provider: 04/04/22 17:58 History of Present Illness Provider complaint: Weakness Onset (ago): day(s) 2 Location: head and chest Radiation: non-radiation Associated symptoms: + chest pain and + weakness; no cough, no fever/chills, no nausea/vomiting, no seizure or no shortness of breath 82-year-old female presents emergency department for weakness. Patient reports that she has been feeling weak over last 2 days. She also reports left-sided chest pain that comes and goes. She states it feels like a cramp pain that comes and goes. No difficulty breathing. No falls. Home Medications Medication Instructions Recorded Confirmed Type baclofen 10 mg tablet 10 mg PO HS 04/04/22 04/04/22 History cholecalciferol (vitamin D3) 25 25 mcg PO DAILY 04/04/22 04/04/22 History mcg (1,000 unit) tablet (Vitamin D3) denosumab 60 mg/mL subcutaneous 60 mg subcut .[id number] 04/04/22 04/04/22 History syringe (Prolia) gabapentin 100 mg capsule 100 mg PO HS 04/04/22 04/04/22 History insulin aspart U-100 100 unit/mL See Rx Instructions .Route .COMPLEX 04/04/22 04/04/22 History (3 mL) subcutaneous pen (Novolog Flexpen U-100 Insulin aspart) insulin glargine 100 unit/mL (3 18 unit subcut QAM 04/04/22 04/04/22 History mL) subcutaneous pen (Basaglar KwikPen U-100 Insulin) levetiracetam 750 mg tablet 750 mg PO AMHS 04/04/22 04/04/22 History levothyroxine 25 mcg tablet 25 mcg PO DAILY 04/04/22 04/04/22 History linagliptin 5 mg tablet (Tradjenta) 5 mg PO DAILY 04/04/22 04/04/22 History lorazepam 0.5 mg tablet 0.5 mg PO Q8 PRN Anxiety 04/04/22 04/04/22 History metronidazole 1 % topical gel 1 applic topical BID 04/04/22 04/04/22 History omeprazole 20 mg capsule,delayed 20 mg PO DAILY 04/04/22 04/04/22 History release rosuvastatin 10 mg tablet 10 mg PO HS 04/04/22 04/04/22 History torsemide 20 mg tablet 20 mg PO QAM 04/04/22 04/04/22 History Allergies Allergy/AdvReac Type Severity Reaction Status Date / Time pembrolizumab [From Keytruda] AdvReac Mild Diarrhea Verified 04/04/22 23:31 Past Med/Surg History Medical History Anemia chronic iron deficiency anemia in setting of ulcerative colitis (does receive routine iron infusions), under surveillance of [facility] hematology/GI. Arthritis Clumsiness Depression Diabetes mellitus, type 2 NIDDM Dizziness High cholesterol History of radiation therapy Hypertension Hypothyroidism Left knee DJD Left knee DJD Leg edema, left Metastasis to brain dx 09/2020. MRI imaging and radiation treatments x5. Metastatic cancer to brain Nocturnal hypoxia 2L/min NC HS Non-small cell cancer of right lung (~2016) s/p lower and middle lung lobe resection (2016), no chemo or xrt PVCs (premature ventricular contractions) Ulcerative colitis Inflectra treatments - follows with [facility] GI Surgical History History of breast biopsy History of colonoscopy History of lobectomy of lung Right VATS middle and lower lobectomy: 07/11/17: Grade 2 view, MAC#3, BANG History of repair of rotator cuff History of tonsillectomy History of tubal ligation S/P right rotator cuff repair Status post right knee replacement Family History Sister Family history of diabetes mellitus Mother Alzheimer disease Father Myocardial infarction Other Heart disease No family history of adverse response to anesthesia Social History Smoking Status: Former smoker Tobacco Type: Cigarettes Second Hand Exposure: No; Hx Alcohol Use: No Hx Substance Use: No Preferred Language: Italian Communication Ability: Effective Visual Impairment: No Limitations Pool Player Required: No Beliefs That Will Affect Care: None marital status: / Current Living Situation: Alone Current Living Situation Comment: [facility] How many Children do You have: 0 Feels Safe at Home: Yes Assistive Devices: None Review of Systems A total of 10 systems reviewed and were otherwise negative Physical Exam Vital Signs Vital Signs - 24 hr 04/04/22 17:03 04/04/22 17:03 04/04/22 17:03 Temperature 36.7 C 36.7 C Temperature Source Oral Oral Pulse Rate 83 Pulse Rate [Brachial] 81 Pulse Rhythm Regular Pulse Rhythm [Brachial] Regular Pulse Strength Normal Pulse Strength [Brachial] Normal Respiratory Rate 25 H 26 H Respiratory Effort / Characteristics Non-Labored Non-Labored Respiratory Depth Normal Normal Respiratory Pattern Regular Regular Blood Pressure 150/109 H Blood Pressure [Left Arm] 150/109 H Blood Pressure Mean 122 Blood Pressure Mean [Left Arm] 122 Blood Pressure Position Lying Blood Pressure Position [Left Arm] Lying Pulse Oximetry 97 97 97 Oxygen Delivery Method Room Air Room Air Oxygen Flow Rate Sepsis Recent Fever Within 48 Hours No Sepsis New/Unexplained Change in Mental Status No Sepsis Action Taken by Nursing No Action Required 04/04/22 18:16 04/04/22 19:00 04/04/22 21:00 Temperature Temperature Source Pulse Rate 123 H Pulse Rate [Brachial] 119 H 73 Pulse Rhythm Pulse Rhythm [Brachial] Regular Regular Pulse Strength Pulse Strength [Brachial] Normal Respiratory Rate 24 24 20 Respiratory Effort / Characteristics Moaning Non-Labored Respiratory Depth Deep Normal Respiratory Pattern Regular Blood Pressure Blood Pressure [Left Arm] 130/66 Blood Pressure Mean Blood Pressure Mean [Left Arm] 87 Blood Pressure Position Blood Pressure Position [Left Arm] Pulse Oximetry 96 93 97 Oxygen Delivery Method Room Air Nasal Cannula Room Air Oxygen Flow Rate 2 Sepsis Recent Fever Within 48 Hours Sepsis New/Unexplained Change in Mental Status Sepsis Action Taken by Nursing Physical Exam GENERAL: Patient appears anxious. HENT: Exam performed. -Head: Normocephalic and atraumatic. -Right Ear: External ear normal. No mastoid tenderness. -Left Ear: External ear normal. No mastoid tenderness. -Mouth/Throat: The oropharynx is clear and moist. No trismus in the jaw. No dental abscesses or uvula swelling. No oropharyngeal exudate or tonsillar abscesses. EYES: Conjunctivae and EOM are normal. Pupils are equal, round, and reactive to light. Right eye exhibits no discharge. Left eye exhibits no discharge. No scleral icterus. NECK: Normal range of motion. Neck supple. No JVD present. No spinous process tenderness present. No carotid bruit present. No rigidity. No tracheal deviation and normal range of motion present. No Brudzinski's sign and no Kernig's sign noted. CV: Normal rate, regular rhythm, normal heart sounds and intact distal pulses. There is no peripheral edema. Palpable radial pulses bue. PULM/CHEST: Effort normal and breath sounds normal. No respiratory distress. No stridor. She has no wheezes. She has no rales. -Chest Wall: She exhibits no tenderness. ABD: The abdomen is soft. MUSC/SKEL: Normal range of motion. There is no peripheral edema, tenderness or deformity. LYMPH: No cervical adenopathy. NEURO: She is alert and oriented to person, place, and time. She has normal strength. No cranial nerve deficit or sensory deficit. GCS eye subscore is 4. GCS verbal subscore is 5. GCS motor subscore is 6. Course Course 1757: The patient was evaluated in room B4. A complete history and physical exam was performed Cardiac monitoring: An order was placed for continuous cardiac monitoring. The monitor shows a rate of 80 with sinus rhythm 1944: Vital signs stable. Labs show potassium of 2.5 magnesium of 1.4. Magne sium replaced and then the potassium will be replaced. 2148: Vital signs stable. CT of the head again shows evidence of bilateral intracranial metastatic disease. Lesions are hyperdense which are likely hemorrhagic and there is significant edema around these lesions. Discussed the case with Dr. Perez [facility] who knows patient well. He states he thinks that the images might be similar to her previous MRI which we do not have access to. Dr. Perez is asking that the images be sent to him via [email or web address] which we can review to see if these are actually acute findings. He recommends Decadron 10 mg IV now and states he will call back after reviewing the images on life image. 2237: Signs stable. Discussed case with Dr. Perez at [facility] again. He was unable to view the images in life image. The images were not be able to successfully be opened at [facility]. I discussed with Dr. Perez and he asked that I text him on his cell [phone] a video of the images to see if there is any real acute change in their most recent scan from [facility]. 2301: Dr. Perez contacted me back and he states there is more edema from an MRI that was done at [facility] from January 2022 however he thinks that he should respond well to steroids. He states that does not look much in the way of an acute hemorrhage. He recommends watching the patient overnight and to continue steroids Decadron 4 mg 3 times daily. He states the patient be watched overnight and if she is doing well on steroids he can see her in the office and repeat the MRI from his office. We will contact [facility] team Dr. Sibley for admission. 2311: Discussed case with Dr. Sibley he states he will evaluate the patient for admission. Administered Medications Potassium Chloride/Sodium Chloride (Normal Saline W/20 Meq Kcl) 20 meq in 1,000 mls @ 100 mls/hr IV .Q10H JENNIFER; Protocol Stop: 05/04/22 21:44 Last Admin: 04/04/22 22:26 Dose: 100 mls/hr Documented By: JOYCE Discontinued Medications Dexamethasone (Dexamethasone Sod Inj 4 Mg/Ml Vial) Confirm Administered Dose 12 mg .ROUTE .STK-MED ONE Stop: 04/04/22 21:44 Last Admin: 04/04/22 22:00 Dose: Not Given Documented By: JOYCE Magnesium Sulfate/Dextrose (Magnesium Sulfate / D5w) 1 gm in 100 mls @ 100 mls/hr IV Q1H JENNIFER Stop: 04/04/22 21:45 Last Infusion: 04/04/22 22:53 Dose: 0 mls/hr Documented By: Admin: 04/04/22 21:36 Dose: 100 mls/hr Documented By: Infusion: 04/04/22 21:36 Dose: 100 mls/hr Documented By: Admin: 04/04/22 21:01 Dose: 100 mls/hr Documented By: RENY Potassium Chloride (K Leeroy / Wtr) 10 meq in 100 mls @ 100 mls/hr IV Q1H JENNIFER; Protocol Stop: 04/04/22 23:44 Last Admin: 04/04/22 23:27 Dose: 100 mls/hr Documented By: Infusion: 04/04/22 23:26 Dose: 100 mls/hr Documented By: Admin: 04/04/22 22:26 Dose: 100 mls/hr Documented By: JOYCE Dexamethasone 10 mg/ Syringe 2.5 mls @ 1 mls/min IV ONE ONE Stop: 04/04/22 21:41 Last Admin: 04/04/22 22:26 Dose: 1 mls/min Documented By: JOYCE Ioversol (Optiray 300 500ml) 111 ml IV ONCE ONE Stop: 04/04/22 20:48 Last Admin: 04/04/22 20:53 Dose: 111 ml Documented By: LUIS DANIEL Lorazepam (Lorazepam 0.5 Mg Tab) 0.5 mg PO NOW STA Stop: 04/04/22 18:06 Last Admin: 04/04/22 18:44 Dose: 0.5 mg Documented By: ASIM Medical Decision Making Laboratory Data Result diagrams: 04/04/22 17:00 04/04/22 17:00 Lab Results 04/04/22 04/04/22 04/04/22 Range/Units 17:00 17:00 17:00 WBC 6.48 (4.8-10.8) K/ul RBC 3.92 L (3.93-5.22) M/uL Hgb 11.6 L (12.0-16.0) g/dl Hct 35.3 (34.1-44.9) % MCV 90.1 (80.0-100.0) fL MCH 29.6 (25.0-34.0) pg MCHC 32.9 (32.0-36.0) g/dL RDW Std Deviation 41.4 (36.4-46.3) fL RDW Coeff of Timothy 12.6 (11.5-14.5) % Plt Count 372 (130-400) K/uL MPV 10.4 (9.4-12.3) fL Immature Gran % (Auto) 0.2 % Neut % (Auto) 48.6 % Lymph % (Auto) 39.8 % Stephenson % (Auto) 10.3 % Eos % (Auto) 0.6 % Baso % (Auto) 0.5 % Neut # (Auto) 3.15 (1.4-6.5) K/uL Lymph # (Auto) 2.58 (1.2-3.4) K/uL Stephenson # (Auto) 0.67 (0.24-0.82) K/uL Eos # (Auto) 0.04 (0-0.50) K/uL Baso # (Auto) 0.03 (0-0.2) K/uL Immature Gran # (Auto) 0.01 (0.00-0.02) K/uL PT 10.7 (9.0-12.0) Seconds INR 1.0 (0.9-1.1) APTT 26.8 (21.0-31.0) Seconds PTT Ratio 1.0 Sodium 139 (136-145) mmol/L Potassium 2.5 L* (3.5-5.1) mmol/L Chloride 96 L (98-107) mmol/L Carbon Dioxide 32 (21-32) mmol/L Anion Gap 11 (3-11) BUN 22 (6-23) mg/dl Creatinine 0.91 (0.6-1.2) mg/dl Est Cr Clr Drug Dosing 40.8 ml/min Est GFR ( Amer) 69.1 ml/min Est GFR (Non-Af Amer) 59.6 ml/min BUN/Creatinine Ratio 24.2 H (10-20) Glucose 81 (70-99(Fasting)) mg/dl Calcium 9.1 (8.5-10.1) mg/dl Magnesium (1.7-2.4) mg/dl Troponin I High Sens 13.5 (0-14) pg/ml Lipase 57 (11-82) U/L SARS-CoV-2, RNA, NAAT (NEGATIVE) 04/04/22 04/04/22 Range/Units 17:00 20:00 WBC (4.8-10.8) K/ul RBC (3.93-5.22) M/uL Hgb (12.0-16.0) g/dl Hct (34.1-44.9) % MCV (80.0-100.0) fL MCH (25.0-34.0) pg MCHC (32.0-36.0) g/dL RDW Std Deviation (36.4-46.3) fL RDW Coeff of Timothy (11.5-14.5) % Plt Count (130-400) K/uL MPV (9.4-12.3) fL Immature Gran % (Auto) % Neut % (Auto) % Lymph % (Auto) % Stephenson % (Auto) % Eos % (Auto) % Baso % (Auto) % Neut # (Auto) (1.4-6.5) K/uL Lymph # (Auto) (1.2-3.4) K/uL Stephenson # (Auto) (0.24-0.82) K/uL Eos # (Auto) (0-0.50) K/uL Baso # (Auto) (0-0.2) K/uL Immature Gran # (Auto) (0.00-0.02) K/uL PT (9.0-12.0) Seconds INR (0.9-1.1) APTT (21.0-31.0) Seconds PTT Ratio Sodium (136-145) mmol/L Potassium (3.5-5.1) mmol/L Chloride (98-107) mmol/L Carbon Dioxide (21-32) mmol/L Anion Gap (3-11) BUN (6-23) mg/dl Creatinine (0.6-1.2) mg/dl Est Cr Clr Drug Dosing ml/min Est GFR ( Amer) ml/min Est GFR (Non-Af Amer) ml/min BUN/Creatinine Ratio (10-20) Glucose (70-99(Fasting)) mg/dl Calcium (8.5-10.1) mg/dl Magnesium 1.4 L (1.7-2.4) mg/dl Troponin I High Sens (0-14) pg/ml Lipase (11-82) U/L SARS-CoV-2, RNA, NAAT NEGATIVE (NEGATIVE) Imaging Data Radiologist's Impression: Chest X-Ray 04/04/22 18:06 SINGLE VIEW CHEST CLINICAL HISTORY: Atypical chest pain. FINDINGS: 2 AP, portable, upright chest radiographs are compared to study dated 12/04/2021 and correlated with chest CT dated 11/12/2021. The examination is degraded by portable technique and patient rotation. The heart is mildly enlarged noting atherosclerotic calcification of the thoracic aorta. Emphysema and chronic additional thickening is similar to previous. Postoperative change and volume loss is again seen on the right with trace pleural fluid at the right lung base. Scarring/atelectasis is noted in both lung bases. No pneumothorax is seen. The skeletal structures are osteopenic. The bony thorax is grossly intact. Arthritic changes seen in the shoulders comment noting postoperative change on the right. Superior subluxation of the humeral heads suggest chronic bilateral rotator cuff injuries. IMPRESSION: 1. No acute cardiopulmonary abnormalities identified. 2. Cardiomegaly, emphysema, postoperative change in the right lung, and additional chronic changes are similar to previous. ACT 112: Negative or not required by law. Electronically signed by: Tylor Galvan M.D. 04/04/2022 7:21 PM Chest CTA 04/04/22 18:09 CT ANGIOGRAM OF THE CHEST CLINICAL HISTORY: Atypical chest pain. Generalized weakness. COMPARISON STUDY: Chest CT dated 11/12/2021. Chest x-ray dated 04/04/2022. TECHNIQUE: Following the IV administration of 111 cc of Optiray 300, CT angiogram of the chest was performed from the upper abdomen to the thoracic inlet utilizing the pulmonary embolus protocol. Images are reviewed in the axial, sagittal, and coronal planes. 3-D MIPS images are created and assessed. IV contrast was administered without complication. A dose lowering technique was utilized adhering to the principles of ALARA. The examination is degraded by motion artifact, as well as by streak artifact from the arms which could not be elevated above the chest. FINDINGS: Thyroid: Atrophic. Thoracic aorta: There is atherosclerotic calcification of the thoracic aorta, which is normal in caliber and demonstrates standard 3-vessel arch anatomy. No dissection is seen. Pulmonary vasculature: The main pulmonary arteries are dilated suggesting pulmonary artery hypertension. There are no filling defects identified in main, lobar, or segmental pulmonary branches to suggest pulmonary embolus. Heart: The heart is mildly enlarged and without pericardial effusion. The coronary arteries are densely calcified. Lungs and pleural spaces: Advanced emphysematous change is similar to previous, and there is postoperative change and volume loss from right middle and lower lobe resection. There is no airspace consolidation typical for pneumonia. The trachea and central airways are clear. Trace pleural fluid is again seen at the right lung base. Parenchymal scarring is noted at the right apex. There are scattered calcified granulomas. Numerous scattered nodular opacities throughout both lungs are similar to previous. A ambulatory service representative 3 mm nodule in the right lung is seen on image #109. An irregular 4 mm nodule in the left upper lobe is seen on image #203. Mediastinum: There is no mediastinal lymphadenopathy. Robyn: Clear. Axillae: There is no axillary lymphadenopathy. Upper abdomen: A 1.6 cm cyst is seen in the left lobe of the liver. A small hiatal hernia is incidentally noted. Skeletal structures: The skeletal structures are osteopenic. Spondylotic change is noted in the thoracic spine. No lytic or blastic bony lesions are seen. Arthritic change is noted in the shoulders with evidence of previous surgery on the right. IMPRESSION: 1. There is no evidence of pulmonary embolus in the main, lobar, or segmental pulmonary arteries. 2. Again seen is cardiomegaly and emphysema with postoperative change from right-sided pulmonary resection. 3. There is no airspace consolidation typical for pneumonia. 4. Scattered subcentimeter pulmonary nodules are pathologically indeterminant and unchanged from prior studies. 5. Trace pleural fluid at the right lung base is unchanged and likely on a postoperative basis. 6. Additional findings as above ACT 112: Negative or not required by law. Electronically signed by: Tylor Galvan M.D. 04/04/2022 9:[address] 04/04/22 18:09 CT SCAN OF THE BRAIN WITHOUT IV CONTRAST CLINICAL HISTORY: Generalized weakness. Metastatic cancer. COMPARISON STUDY: CT and MRI of the brain dated 12/04/2021. TECHNIQUE: Unenhanced axial CT scan of the brain is performed from the vertex to the skull base. A dose lowering technique was utilized adhering to the principles of ALARA. CT DOSE: 842.69 mGy.cm FINDINGS: Brain parenchyma: There is slightly hyperdense mass lesion is identified in the right parietal lobe on axial image #21 measuring 2.1 cm and within the left temporal lobe on image #16 measuring 1.0 cm. These demonstrate significant surrounding edema and are consistent with metastatic disease. The showed gradient signal abnormality on the prior MRI and may be hemorrhagic. The degree of edema throughout the left hemisphere has significantly increased as compared to 12/04/2021. There is effacement of overlying cortical sulci bilaterally. There is no midline shift. No extra-axial fluid collection is identified. There is no evidence of acute territorial ischemia by CT criteria. There is age-related involutional change noting minimal recurrent hepatic disease. Ventricles, sulci, cisterns: Prominent secondary to involutional change. Intracranial vasculature: There is atherosclerotic calcification of the cavernous carotid and vertebral arteries. Calvarium: Unremarkable. Sinuses and mastoids: There is trace mucosal thickening within the left maxillary antrum. The paranasal sinuses are otherwise clear. The mastoid air cells are well pneumatized. Orbits: The bony orbits are grossly intact. There are bilateral ocular lens implants. IMPRESSION: 1. Again seen is evidence of bilateral intracranial metastatic disease. These lesions appear hyperdense, and when correlated with the 12/04/2021 MRI of the brain are likely hemorrhagic. 2. There is significant edema around these lesions. This has significantly increased throughout the left hemisphere as compared to 12/04/2021. 3. There is no midline shift or evidence of acute territorial ischemia by CT criteria. ACT 112: Negative or not required by law. Electronically signed by: Tylor Galvan M.D. 04/04/2022 9:07 PM ECG Data Indication: + chest pain and + weakness Rate (beats per minute): 77 Rhythm: + normal sinus ECG Intervals/blocks: + Normal QRS, + Normal PA and + Normal QT-c ECG ST segments: + Normal ST segments ECG Findings: + PVCs MDM Narrative 1757: The patient was evaluated in room B4. A complete history and physical exam was performed Cardiac monitoring: An order was placed for continuous cardiac monitoring. The monitor shows a rate of 80 with sinus rhythm 1944: Vital signs stable. Labs show potassium of 2.5 magnesium of 1.4. Magnesium replaced and then the potassium will be replaced. 2148: Vital signs stable. CT of the head again shows evidence of bilateral intracranial metastatic disease. Lesions are hyperdense which are likely hemorrhagic and there is significant edema around these lesions. Discussed the case with Dr. Perez [facility] who knows patient well. He states he thinks that the images might be similar to her previous MRI which we do not have access to. Dr. Perez is asking that the images be sent to him via [email or web address] which we can review to see if these are actually acute findings. He recommends Decadron 10 mg IV now and states he will call back after reviewing the images on life image. 2237: Signs stable. Discussed case with Dr. Perez at [facility] again. He was unable to view the images in life image. The images were not be able to successfully be opened at [facility]. I discussed with Dr. Perez and he asked that I text him on his cell [phone] a video of the images to see if there is any real acute change in their most recent scan from [facility]. 2301: Dr. Perez contacted me back and he states there is more edema from an MRI that was done at [facility] from January 2022 however he thinks that he should respond well to steroids. He states that does not look much in the way of an acute hemorrhage. He recommends watching the patient overnight and to continue steroids Decadron 4 mg 3 times daily. He states the patient be watched ove rnight and if she is doing well on steroids he can see her in the office and repeat the MRI from his office. We will contact [facility] hospitalist team Dr. Sibley for admission. 2311: Discussed case with Dr. Sibley he states he will evaluate the patient for admission. Impression & Plan Acute hypokalemia, Hypomagnesemia, Lung cancer metastatic to brain Discharge Plan Visit Data Chief Complaint: Dizziness ED Provider: Fox Salmeron Discharge Problem: Acute hypokalemia, Hypomagnesemia, Lung cancer metastatic to brain Patient Disposition: Admitted As Inpatient Forms Stand Alone Forms: [facility] Prescriptions Prescriptions: No Action torsemide 20 mg tablet 20 mg PO QAM levothyroxine 25 mcg tablet 25 mcg PO DAILY lorazepam 0.5 mg tablet 0.5 mg PO Q8 PRN (Reason: Anxiety) baclofen 10 mg tablet 10 mg PO HS omeprazole 20 mg capsule,delayed release(DR/EC) 20 mg PO DAILY levetiracetam 750 mg tablet 750 mg PO AMHS gabapentin 100 mg capsule 100 mg PO HS insulin aspart U-100 [Novolog Flexpen U-100 Insulin] 100 unit/mL (3 mL) insulin pen See Rx Instructions .ROUTE .COMPLEX Rx Instructions: 1 unit for every 25 points bsg > 150 before meals when bsg taken rosuvastatin 10 mg tablet 10 mg PO HS metronidazole 1 % gel 1 applic TOPICAL BID Rx Instructions: once to bid cholecalciferol (vitamin D3) [Vitamin D3] 25 mcg (1,000 unit) Tablet 25 mcg PO DAILY insulin glargine [Basaglar KwikPen U-100 Insulin] 100 unit/mL (3 mL) insulin pen 18 unit SUBCUT QAM Prolia 60 mg/mL Syringe 60 mg SUBCUT .[id number] Tradjenta 5 mg tablet 5 mg PO DAILY Referrals Referrals: Danny Ibarra MD [Primary Care Provider] -
[2022-04-04] MEDS: POTASSIUM CHLORIDE / WTR 10 MEQ/100 ML PLCT IV SCH ×2 (22:26→23:27)
[2022-04-04] MEDS ORDERED: POTASSIUM CHLORIDE CRTAB 20 MEQ TABCR PO STA (23:15)
[2022-04-05] MEDS ORDERED: levETIRAcetam 1,000 MG in 0.9 % SODIUM CHLORIDE 100 ML IV STA (00:11)
--- NOTE | 2022-04-05 00:12 | History & Physical Report ---
Date of Service April 05, 2022 Assessment & Plan (1) Increased intracranial pressure: Plan: Secondary to vasogenic edema from persistent/progressive intracranial mets with hemorrhage hx NSCLC status post surgery status post Keytruda with brain mets status post radiation Likely breakthrough seizure secondary to above HTN, slight elevated COPD, lung status at baseline hx CVA/PAD hyperlipidemia on statin Rx Low back pain with RLE radiation rule out spine mets DM2 insulin requiring, reasonable control as of recent hemoglobin A1c of 7.15 March 2022 history Keytruda induced ulcerative colitis, stable on regimen Hypokalemia secondary to insulin/diuretic Rx chronic anemia, hemoglobin at baseline past tobacco abuse Medical telemetry Decadron 4 mg p.o. 3 times daily as per patient [facility] neurosurgeon (Dr. Burger) recommendations. Increase maintenance Keppra dose to 1 g twice daily from 750 mg twice daily. Seizure precautions, Ativan as needed active seizures Neurology consult Re: Increased intracranial pressure, breakthrough seizure. MRI brain for breakthrough seizure work-up MRI lumbosacral spine for back pain symptoms given history of malignancy May benefit from radiation oncology input pending MRI results. Replace electrolytes Consider inpatient palliative care consultation if recommended by patient's [facility] oncologist (Dr. Villeda). DVT prophylaxis with SCDs Re: Hemorrhagic brain mets Full code Patient sisters requesting updates from providers. Ms. Maki Smithubb, contact numbers [phone]. Raffi Massey, contact #[phone]. Text document was generated using [employer] voice recognition software. It may contain grammatical or spelling errors. Kindly contact undersigned for clarification of any documentation item in question. History of Present Illness Chief Complaint: Dizziness, weakness, twitching as per his sister Primary Care Provider: Danny Ibarra MD History obtained from patient, family, and records. Medical history significant for HTN, COPD, CVA, PAD, hyperlipidemia, non-small cell lung cancer status post surgery status post Keytruda with brain mets status post radiation, DM2 insulin requiring, history Keytruda induced ulcerative colitis, seizure disorder as per records, chronic anemia (baseline hemoglobin of 11), past tobacco abuse. Last confinement November 2021 for headache and other neurologic symptoms attributed to metastatic brain cancer with associated vasogenic edema mass- effect and mild midline shift. Neurology and radiation oncology recommended Decadron course and follow-up with patient's [facility] neurosurgeon. Patient admitted at [facility] last December 2021 for brain mets. Patient underwent laser interstitial thermal therapy of right parietal brain mets. Patient subsequently tapered off Decadron Rx by neurosurgeon. Outpatient repeat brain MRI last month showed near complete resolution of fairly severe surrounding vasogenic edema and regional mass-effect. Repeat MRI recommended by [facility] neurosurgeon next month. 3 weeks ago, patient noted back pain with RLE radiation. No weakness/numbness. No incontinence symptoms. Patient neurologist recommended outpatient MRI of the lumbar spine to rule out spinal lesion. Last week, patient noted coordination problems on the right side as per sister. Patient started by PCP on baclofen a few days ago for back pain. Patient felt to dizzy and weird on new medications. Left-sided twitching of the face and arms and legs noted by sister. Patient denies headache symptoms. EMS called to patient's home. Transient stabbing left-sided chest pain during transport. IV Decadron administered at the ER in note of abnormal CT head results following ER provider discussion with patient [facility] neurosurgeon. 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 Allergies Allergy/AdvReac Type Severity Reaction Status Date / Time baclofen AdvReac Mild felt funny Verified 04/05/22 00:23 pembrolizumab [From Keytruda] AdvReac Mild Diarrhea Verified 04/04/22 23:31 Home Medications Medication Instructions Recorded Confirmed Type cholecalciferol (vitamin D3) 25 25 mcg PO DAILY 04/04/22 04/04/22 History mcg (1,000 unit) tablet (Vitamin D3) denosumab 60 mg/mL subcutaneous 60 mg subcut .[id number] 04/04/22 04/04/22 History syringe (Prolia) gabapentin 100 mg capsule 100 mg PO HS 04/04/22 04/04/22 History insulin aspart U-100 100 unit/mL See Rx Instructions .Route .COMPLEX 04/04/22 04/04/22 History (3 mL) subcutaneous pen (Novolog Flexpen U-100 Insulin aspart) insulin glargine 100 unit/mL (3 18 unit subcut QAM 04/04/22 04/04/22 History mL) subcutaneous pen (Basaglar KwikPen U-100 Insulin) levetiracetam 750 mg tablet 750 mg PO AMHS 04/04/22 04/04/22 History levothyroxine 25 mcg tablet 25 mcg PO DAILY 04/04/22 04/04/22 History linagliptin 5 mg tablet (Tradjenta) 5 mg PO DAILY 04/04/22 04/04/22 History lorazepam 0.5 mg tablet 0.5 mg PO Q8 PRN Anxiety 04/04/22 04/04/22 History metronidazole 1 % topical gel 1 applic topical BID 04/04/22 04/04/22 History omeprazole 20 mg capsule,delayed 20 mg PO DAILY 04/04/22 04/04/22 History release rosuvastatin 10 mg tablet 10 mg PO HS 04/04/22 04/04/22 History torsemide 20 mg tablet 20 mg PO QAM 04/04/22 04/04/22 History Past Med/Surg History Medical History Anemia chronic iron deficiency anemia in setting of ulcerative colitis (does receive routine iron infusions), under surveillance of [facility] hematology/GI. Arthritis Clumsiness Depression Diabetes mellitus, type 2 NIDDM Dizziness High cholesterol History of radiation therapy Hypertension Hypothyroidism Left knee DJD Left knee DJD Leg edema, left Metastasis to brain dx 09/2020. MRI imaging and radiation treatments x5. Metastatic cancer to brain Nocturnal hypoxia 2L/min NC HS Non-small cell cancer of right lung (~2016) s/p lower and middle lung lobe resection (2017), no chemo or xrt PVCs (premature ventricular contractions) Ulcerative colitis Inflectra treatments - follows with [facility] GI Surgical History History of breast biopsy History of colonoscopy History of lobectomy of lung Right VATS middle and lower lobectomy: 07/11/17: Grade 2 view, MAC#3, BANG History of repair of rotator cuff History of tonsillectomy History of tubal ligation S/P right rotator cuff repair Status post right knee replacement Family History Sister Family history of diabetes mellitus Mother Alzheimer disease Father Myocardial infarction Other Heart disease No family history of adverse response to anesthesia Social History Smoking Status: Former smoker Tobacco Type: Cigarettes Second Hand Exposure: No; Hx Alcohol Use: No Hx Substance Use: No Preferred Language: Estonian Communication Ability: Effective Visual Impairment: No Limitations Harness Mender Required: No Beliefs That Will Affect Care: None marital status: / Current Living Situation: Alone Current Living Situation Comment: Johnnie martinez How many Children do You have: 0 Feels Safe at Home: Yes Assistive Devices: None Review of Systems Review of Systems: As per HPI, all other systems reviewed and negative Physical Exam Physical Exam: GENERAL: Comfortable, slightly anxious, pleasant, no respiratory distress SKIN: Normal color, warm HEENT: [place] palpebral conjunctivae, no ptosis, dry buccal mucosa NECK : Supple, no tenderness CHEST : Decreased breath sounds, no tenderness HEART : RRR, no obvious murmurs ABDOMEN: Some distention, nontender BACK : Low back tenderness, negative straight leg raise test EXTREMITIES : Minimal LE swelling, no LE tenderness, no other conspicuous deformities noted NEUROLOGIC : Coherent, no facial asymmetry, gait and stance not assessed Results & Data Results & Data ([facility]) Vital Signs (Past 12 Hours) Vital Signs Temp Pulse Pulse Resp BP BP Pulse Ox 04/04/22 21:00 73 20 130/66 97 04/04/22 19:00 119 H 24 93 04/04/22 18:16 123 H 24 96 04/04/22 17:03 36.7 C 81 26 H 150/109 H 97 04/04/22 17:03 97 04/04/22 17:03 36.7 C 83 25 H 150/109 H 97 O2 Del Method O2 Flow Rate 04/04/22 21:00 Room Air 04/04/22 19:00 Nasal Cannula 2 04/04/22 18:16 Room Air 04/04/22 17:03 Room Air 04/04/22 17:03 04/04/22 17:03 Room Air Laboratory Results Laboratory Results WBC 6.48 K/ul (4.8-10.8) 04/04/22 17:00 RBC 3.92 M/uL (3.93-5.22) L 04/04/22 17:00 Hgb 11.6 g/dl (12.0-16.0) L 04/04/22 17:00 Hct 35.3 % (34.1-44.9) 04/04/22 17:00 MCV 90.1 fL (80.0-100.0) 04/04/22 17:00 MCH 29.6 pg (25.0-34.0) 04/04/22 17:00 MCHC 32.9 g/dL (32.0-36.0) 04/04/22 17:00 RDW Std Deviation 41.4 fL (36.4-46.3) 04/04/22 17:00 RDW Coeff of Timothy 12.6 % (11.5-14.5) 04/04/22 17:00 Plt Count 372 K/uL (130-400) 04/04/22 17:00 MPV 10.4 fL (9.4-12.3) 04/04/22 17:00 Immature Gran % (Auto) 0.2 % 04/04/22 17:00 Neut % (Auto) 48.6 % 04/04/22 17:00 Lymph % (Auto) 39.8 % 04/04/22 17:00 Prentiss % (Auto) 10.3 % 04/04/22 17:00 Eos % (Auto) 0.6 % 04/04/22 17:00 Baso % (Auto) 0.5 % 04/04/22 17:00 Neut # (Auto) 3.15 K/uL (1.4-6.5) 04/04/22 17:00 Lymph # (Auto) 2.58 K/uL (1.2-3.4) 04/04/22 17:00 Prentiss # (Auto) 0.67 K/uL (0.24-0.82) 04/04/22 17:00 Eos # (Auto) 0.04 K/uL (0-0.50) 04/04/22 17:00 Baso # (Auto) 0.03 K/uL (0-0.2) 04/04/22 17:00 Immature Gran # (Auto) 0.01 K/uL (0.00-0.02) 04/04/22 17:00 PT 10.7 Seconds (9.0-12.0) 04/04/22 17:00 INR 1.0 (0.9-1.1) 04/04/22 17:00 APTT 26.8 Seconds (21.0-31.0) 04/04/22 17:00 PTT Ratio 1.0 04/04/22 17:00 Sodium 139 mmol/L (136-145) 04/04/22 17:00 Potassium 2.5 mmol/L (3.5-5.1) L* 04/04/22 17:00 Chloride 96 mmol/L (98-107) L 04/04/22 17:00 Carbon Dioxide 32 mmol/L (21-32) 04/04/22 17:00 Anion Gap 11 (3-11) 04/04/22 17:00 BUN 22 mg/dl (6-23) 04/04/22 17:00 Creatinine 0.91 mg/dl (0.6-1.2) 04/04/22 17:00 Est Cr Clr Drug Dosing 40.8 ml/min 04/04/22 17:00 Est GFR ( Amer) 69.1 ml/min 04/04/22 17:00 Est GFR (Non-Af Amer) 59.6 ml/min 04/04/22 17:00 BUN/Creatinine Ratio 24.2 (10-20) H 04/04/22 17:00 Glucose 81 mg/dl (70-99(Fasting)) 04/04/22 17:00 Calcium 9.1 mg/dl (8.5-10.1) 04/04/22 17:00 Magnesium 1.4 mg/dl (1.7-2.4) L 04/04/22 17:00 Troponin I High Sens 13.5 pg/ml (0-14) 04/04/22 17:00 Lipase 57 U/L (11-82) 04/04/22 17:00 SARS-CoV-2, RNA, NAAT NEGATIVE (NEGATIVE) 04/04/22 20:00 Impressions Chest X-Ray 04/04/22 18:06 SINGLE VIEW CHEST CLINICAL HISTORY: Atypical chest pain. FINDINGS: 2 AP, portable, upright chest radiographs are compared to study dated 12/04/2021 and correlated with chest CT dated 11/12/2021. The examination is degraded by portable technique and patient rotation. The heart is mildly enlarged noting atherosclerotic calcification of the thoracic aorta. Emphysema and chronic additional thickening is similar to previous. Postoperative change and volume loss is again seen on the right with trace pleural fluid at the right lung base. Scarring/atelectasis is noted in both lung bases. No pneumothorax is seen. The skeletal structures are osteopenic. The bony thorax is grossly intact. Arthritic changes seen in the shoulders comment noting postoperative change on the right. Superior subluxation of the humeral heads suggest chronic bilateral rotator cuff injuries. IMPRESSION: 1. No acute cardiopulmonary abnormalities identified. 2. Cardiomegaly, emphysema, postoperative change in the right lung, and additio nal chronic changes are similar to previous. ACT 112: Negative or not required by law. Electronically signed by: Tylor Galvan M.D. 04/04/2022 7:21 PM Chest CTA 04/04/22 18:09 CT ANGIOGRAM OF THE CHEST CLINICAL HISTORY: Atypical chest pain. Generalized weakness. COMPARISON STUDY: Chest CT dated 11/12/2021. Chest x-ray dated 04/04/2022. TECHNIQUE: Following the IV administration of 111 cc of Optiray 300, CT angiogram of the chest was performed from the upper abdomen to the thoracic inlet utilizing the pulmonary embolus protocol. Images are reviewed in the axial, sagittal, and coronal planes. 3-D MIPS images are created and assessed. IV contrast was administered without complication. A dose lowering technique was utilized adhering to the principles of ALARA. The examination is degraded by motion artifact, as well as by streak artifact from the arms which could not be elevated above the chest. FINDINGS: Thyroid: Atrophic. Thoracic aorta: There is atherosclerotic calcification of the thoracic aorta, which is normal in caliber and demonstrates standard 3-vessel arch anatomy. No dissection is seen. Pulmonary vasculature: The main pulmonary arteries are dilated suggesting pulmonary artery hypertension. There are no filling defects identified in main, lobar, or segmental pulmonary branches to suggest pulmonary embolus. Heart: The heart is mildly enlarged and without pericardial effusion. The coronary arteries are densely calcified. Lungs and pleural spaces: Advanced emphysematous change is similar to previous, and there is postoperative change and volume loss from right middle and lower lobe resection. There is no airspace consolidation typical for pneumonia. The trachea and central airways are clear. Trace pleural fluid is again seen at the right lung base. Parenchymal scarring is noted at the right apex. There are scattered calcified granulomas. Numerous scattered nodular opacities throughout both lungs are similar to previous. A tax compliance representative 3 mm nodule in the right lung is seen on image #109. An irregular 4 mm nodule in the left upper lobe is seen on image #203. Mediastinum: There is no mediastinal lymphadenopathy. Robyn: Clear. Axillae: There is no axillary lymphadenopathy. Upper abdomen: A 1.6 cm cyst is seen in the left lobe of the liver. A small hiatal hernia is incidentally noted. Skeletal structures: The skeletal structures are osteopenic. Spondylotic change is noted in the thoracic spine. No lytic or blastic bony lesions are seen. Arthritic change is noted in the shoulders with evidence of previous surgery on the right. IMPRESSION: 1. There is no evidence of pulmonary embolus in the main, lobar, or segmental pulmonary arteries. 2. Again seen is cardiomegaly and emphysema with postoperative change from right-sided pulmonary resection. 3. There is no airspace consolidation typical for pneumonia. 4. Scattered subcentimeter pulmonary nodules are pathologically indeterminant and unchanged from prior studies. 5. Trace pleural fluid at the right lung base is unchanged and likely on a postoperative basis. 6. Additional findings as above ACT 112: Negative or not required by law. Electronically signed by: Tylor Galvan M.D. 04/04/2022 9:[address] 04/04/22 18:09 CT SCAN OF THE BRAIN WITHOUT IV CONTRAST CLINICAL HISTORY: Generalized weakness. Metastatic cancer. COMPARISON STUDY: CT and MRI of the brain dated 12/04/2021. TECHNIQUE: Unenhanced axial CT scan of the brain is performed from the vertex to the skull base. A dose lowering technique was utilized adhering to the principles of ALARA. CT DOSE: 842.69 mGy.cm FINDINGS: Brain parenchyma: There is slightly hyperdense mass lesion is identified in the right parietal lobe on axial image #21 measuring 2.1 cm and within the left temporal lobe on image #16 measuring 1.0 cm. These demonstrate significant surrounding edema and are consistent with metastatic disease. The showed gradient signal abnormality on the prior MRI and may be hemorrhagic. The degree of edema throughout the left hemisphere has significantly increased as compared to 12/04/2021. There is effacement of overlying cortical sulci bilaterally. There is no midline shift. No extra-axial fluid collection is identified. There is no evidence of acute territorial ischemia by CT criteria. There is age-related involutional change noting minimal recurrent hepatic disease. Ventricles, sulci, cisterns: Prominent secondary to involutional change. Intracranial vasculature: There is atherosclerotic calcification of the cavernous carotid and vertebral arteries. Calvarium: Unremarkable. Sinuses and mastoids: There is trace mucosal thickening within the left maxillary antrum. The paranasal sinuses are otherwise clear. The mastoid air cells are well pneumatized. Orbits: The bony orbits are grossly intact. There are bilateral ocular lens implants. IMPRESSION: 1. Again seen is evidence of bilateral intracranial metastatic disease. These lesions appear hyperdense, and when correlated with the 12/04/2021 MRI of the brain are likely hemorrhagic. 2. There is significant edema around these lesions. This has significantly increased throughout the left hemisphere as compared to 12/04/2021. 3. There is no midline shift or evidence of acute territorial ischemia by CT criteria. ACT 112: Negative or not required by law. Electronically signed by: Tylor Galvan M.D. 04/04/2022 9:07 PM Diagnostic Findings EKG as per my interpretation : Rate 105, sinus tachycardia, normal axis, T wave abnormalities inferior leads, PVCs
[2022-04-05] MEDS ORDERED: NSS + 20MEQ KCL 20 MEQ/1,000 ML BAG IV STA (00:34)
[2022-04-05] MEDS ORDERED: LORazepam 0.5 MG TAB ONE (01:06)
[2022-04-05] MEDS ORDERED: GLUCAGON FOR INJ 1 MG VIAL SQ PRN (01:24)
[2022-04-05] MEDS ORDERED: CARBOHYDRATES FOR HYPOGLYCEMIA PO PRN (01:24)
[2022-04-05] MEDS ORDERED: GLUCOSE 40% GEL 15 GM TUBE PO PRN (01:24)
[2022-04-05] MEDS ORDERED: LORazepam 0.5 MG TAB PO PRN (01:24)
[2022-04-05] MEDS ORDERED: DEXTROSE 50% 50 ML SYRINGE IV PRN (01:24)
[2022-04-05] MEDS ORDERED: GLUCOSE 10 TAB/TUBE PO PRN (01:24)
[2022-04-05] MEDS ORDERED: LORazepam 2 MG/1 ML VIAL IV PRN (01:24)
[2022-04-05] MEDS ORDERED: ACETAMINOPHEN 325 MG TAB PO PRN (01:24)
[2022-04-05] MEDS ORDERED: GADOBUTROL 65ML VIAL IV ONE (02:08)
[2022-04-05] MEDS ORDERED: POTASSIUM CHLORIDE CRTAB 20 MEQ TABCR PO ONE (03:00)
[2022-04-05] MEDS: INSULIN ASPART PER UNIT SC SCH ×5 (03:09→21:00)
[2022-04-05] MEDS: LANTUS PER UNIT CHARGE SQ SCH (04:38)
[2022-04-05] MEDS: GABAPENTIN 100 MG CAP PO SCH ×2 (04:39→20:52)
[2022-04-05 06:13] LABS: Basophils # (auto) 0.01 K/uL (0-0.2); Basophils % (auto) 0.2 %; Hematocrit (blood only) 40.6 % (34.1-44.9); Immature Granulocytes # (auto) 0.01 K/uL (0.00-0.02); Immature Granulocytes % (auto) 0.2 %; Lymphocytes # (auto) 0.56 K/uL (1.2-3.4); Lymphocytes % (auto) 12.9 %; Mean Corpuscular Hemoglobin 29.1 pg (25.0-34.0); Monocytes # (auto) 0.09 K/uL (0.24-0.82); Monocytes % (auto) 2.1 %; Neutrophils # (auto) 3.67 K/uL (1.4-6.5); Neutrophils % (auto) 84.6 %; Platelet Count 388 K/uL (130-400); RDW Coefficient of Variation 12.6 % (11.5-14.5); RDW Standard Deviation 41.6 fL (36.4-46.3); Red Blood Count 4.46 M/uL (3.93-5.22); White Blood Count 4.34 K/ul (4.8-10.8)
[2022-04-05 06:37] LABS: BUN Creatinine Ratio 23.3 (10-20); Calcium 8.8 mg/dl (8.5-10.1); Creatinine Clr Calc Pharmacy 50.8 ml/min; Est GFR (African American) 90.2 ml/min; Est GFR (Non-African American) 77.8 ml/min; Magnesium 2.1 mg/dl (1.7-2.4); Potassium 3.6 mmol/L (3.5-5.1)
[2022-04-05] MEDS: LEVOTHYROXINE SODIUM 25 MCG TABLET PO SCH (06:42)
--- NOTE | 2022-04-05 08:10 | Electrocardiogram Report ---
Test Reason : Blood Pressure : / mmHG Vent. Rate : 099 BPM Atrial Rate : 099 BPM P-R Int : 146 ms QRS Dur : 092 ms QT Int : 400 ms P-R-T Axes : 086 074 003 degrees QTc Int : 513 ms Poor data quality, interpretation may be adversely affected Normal sinus rhythm Inferior infarct , age undetermined Abnormal ECG When compared with ECG of 04-APR-2022 17:41, (unconfirmed) Premature ventricular complexes are no longer Present Confirmed by Domo Rodas ([id number]) on 04/05/2022 11:15:39 AM Referred By: REFERRED SELF Confirmed By:Domo Rodas
[2022-04-05] MEDS ORDERED: PHARMACY GLYCEMIC MGMT CONSULT PRN (08:54)
[2022-04-05] MEDS ORDERED: LANTUS PER UNIT CHARGE SQ SCH ×2 (09:00→21:00)
[2022-04-05] MEDS ORDERED: metroNIDAZOLE 0.75% TOPICAL GEL 45 GM TUBE TOP PRN (09:00)
--- NOTE | 2022-04-05 09:00 | Electrocardiogram Report ---
Test Reason : Blood Pressure : / mmHG Vent. Rate : 077 BPM Atrial Rate : 077 BPM P-R Int : 156 ms QRS Dur : 094 ms QT Int : 424 ms P-R-T Axes : 070 072 045 degrees QTc Int : 479 ms Sinus rhythm with occasional Premature ventricular complexes Diffuse Minor Nonspecific ST and T wave abnormality Abnormal ECG When compared with ECG of 04-DEC-2021 19:11, Premature ventricular complexes are now Present Confirmed by Domo Rodas ([id number]) on 04/05/2022 8:10:10 AM Also confirmed by Domo Rodas ([id number]), videotape editor Leobardo Skinner ([id number]) on 04/05/2022 8:59:45 AM Referred By: REFERRED SELF Confirmed By:Domo Rodas
--- NOTE | 2022-04-05 09:16 | Pharmacy Report ---
Pharmacy Glycemic Short Note 2 - Date of Service April 05, 2022 - Glycemic Short BSG Results (Last 24 hours): 04/04/22 04/05/22 04/05/22 17:00 02:48 05:43 Glucose 81 115 H POC Glucose 161 H 04/05/22 08:53 Glucose POC Glucose 92 OUTPATIENT ANTIDIABETIC REGIMEN: * Basaglar 18 units Qam, Novolog CF of 25 for BSG >150 mg/dL, tradjenta * A1c per notes 7.5% - Mar 2022 ASSESSMENT: * 82 year old admitted with dizziness. PMHx significant for non-small cell lung cancer status with brain mets, DM2, ulcerative colitis, seizure disorder * Pharmacy consulted for glycemic management. Steroids started on admission per recommendation by [facility] neurosurgery. Patient received one dose of IV dexamethasone last evening. Lantus dose of 15 units given early this AM * Fasting BSG 92 mg/dL - will hold further basal insulin this morning, may add scale for HS in case BSGs are trending upward with ongoing steroids PLAN FOR INPATIENT GLYCEMIC CONTROL: * Hold outpatient oral diabetes medications * Basal insulin * Lantus 15 units Qam * Lantus 0-8 units Qpm * Bolus insulin * NovoLog per scale ACHS or Q6hrs while NPO * Goal Range: Low 110 mg/dL - High 140 mg/dL * Correction Factor: 25 mg/dL/unit * Nutritional / Prandial insulin per carb ratio of 1 unit per 15 grams CHO consumed
[2022-04-05] MEDS: levETIRAcetam 500 MG TAB PO SCH ×2 (10:06→21:04)
[2022-04-05] MEDS: PANTOprazole 40 MG TAB PO SCH (10:06)
[2022-04-05] MEDS: dexAMETHasone 4 MG TAB PO SCH ×3 (10:07→20:52)
--- NOTE | 2022-04-05 11:15 | Electrocardiogram Report ---
Test Reason : Blood Pressure : / mmHG Vent. Rate : 106 BPM Atrial Rate : 106 BPM P-R Int : 152 ms QRS Dur : 080 ms QT Int : 356 ms P-R-T Axes : 047 076 032 degrees QTc Int : 472 ms Poor data quality, interpretation may be adversely affected Sinus tachycardia with occasional Premature ventricular complexes Otherwise normal ECG When compared with ECG of 04-APR-2022 16:55, No significant change was found Confirmed by oDmo Rodas ([id number]) on 04/05/2022 11:15:28 AM Referred By: REFERRED SELF Confirmed By:Domo Rodas
--- NOTE | 2022-04-05 15:41 | Magnetic Resonance Report ---
Brain MRI WITH AND WITHOUT CONTRAST HISTORY: Procedure. Abnormal head CT. Intracranial metastatic disease. TECHNIQUE: Multiplanar multisequence MRI of the brain was performed both before and after the intrave nous administration of contrast. COMPARISON STUDY: Head CT 04/04/2022. Brain MRI 12/04/2021. FINDINGS: Suboptimal evaluation of the brain due to the motion artifact. There again noted enhancing metastatic lesions within the right parietal lobe, left parietal lobe, left temporal lobe. The pariet al lobe lesions are similar in size measuring 2.2 cm on the right and 9 mm on the left. The left temp oral lobe lesion has slightly increased in size and measures 1.3 cm, previously measuring 1.0 cm. Sma ll amount of hemorrhage associated with the dominant right parietal lesion which is new from the prio r study. No new intracranial metastatic lesions identified. The vasogenic edema and mass effect of th e right parietal lesion has slightly improved. The vasogenic edema within the left temporal lobe lesi on is slightly progressed. The vasogenic edema associated with the left parietal lobe lesion has also improved. The major vascular flow-voids at the skull base are maintained. No significant midline mary ft. Mild atrophic changes are again noted. Prior bilateral lens repair. Paranasal sinuses and mastoid air cells are clear. No areas restricted diffusion to suggest acute infarction. IMPRESSION: 1. Slight increase in size of the left temporal lobe metastatic lesion with progressive surrounding v asogenic edema. 2. The bilateral parietal lobe lesions are similar in size and demonstrate improvement in the surroun ding vasogenic edema. 3. Small amount of subcutaneous to chronic hemorrhage associated with the dominant right parietal lob e lesion. 4. No significant midline shift. ACT 112: Negative or not required by law. Electronically signed by: James Villarreal M.D. 04/05/2022 3:39 PM
--- NOTE | 2022-04-05 16:21 | Magnetic Resonance Report ---
MR lumbar spine wo/w con CLINICAL HISTORY: 82 years-old Female with back pain, hx malig. Chronic low back pain in a patient w ith history of metastatic lung cancer COMPARISON: CTA chest 04/04/2022, CT abdomen and pelvis 11/12/2021 TECHNIQUE: Multiplanar, multi sequence MRI of the lumbar spine was performed with and without the use of 5 cc Gadavist FINDINGS: Trace right pleural effusion. Mild right hemidiaphragmatic elevation. Cardiomegaly. T2 hype rintense foci of the kidneys are suggestive of probable cysts. There is marked distention of the urin ravidnra bladder. 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 Mild nonspecific edema within the lower lumbar paraspinal musculat ure. No acute fracture, subluxation or endplate erosion. The conus medullaris terminates at the L1-L2 level. Enhancement surrounding the L4-L5 and L5-S1 facets is likely degenerative related. 4 mm anter olisthesis L4 on L5 is likely secondary to chronic facet arthrosis. T12-L1: Mild intervertebral disc space narrowing and spondylitic spurring with mild to moderate face t arthrosis. No central canal or neural foraminal stenosis. L1-L2: Mild to moderate intervertebral disc space narrowing with spondylitic spurring and small circ umferential annular disc bulge. Ligamentum flavum thickening with moderate facet arthrosis. Flattenin g of the ventral thecal sac. The central canal is patent. Mild bilateral neural foraminal narrowing. L2-L3: Mild to moderate intervertebral disc space narrowing with spondylitic spurring and small circ umferential annular disc bulge. Ligamentum flavum thickening with severe facet arthrosis. Flattening of the ventral thecal sac. The central canal is patent. Mild bilateral foraminal narrowing. L3-L4: Moderate to severe disc space narrowing with spondylitic spurring and small circumferential a nnular disc bulge eccentric to the left. Ligamentum flavum thickening with severe facet arthrosis. Th e central canal is patent. Mild to moderate narrowing of the left lateral recess. Mild to moderate ri ght with severe left neural foraminal narrowing. L4-L5: Grade 1 anterolisthesis. Moderate intervertebral disc space narrowing with spondylitic spurri ng and circumferential annular disc bulge with posterior disc space uncovering. Ligamentum flavum thi ckening with severe facet arthrosis. AP dimension of the thecal sac measures 8 mm. There is mild to m oderate central canal stenosis with moderate narrowing of the lateral recesses. Moderate left with mi ld to moderate right neural foraminal narrowing. L5-S1: Tiny posterior annular disc bulge with mild spondylitic spurring and severe facet arthrosis. The central canal is patent. Moderate bilateral foraminal stenosis. IMPRESSION: 1. Discogenic degeneration with spondylitic spurring and facet arthrosis as above. 2. Multilevel neural foraminal narrowing, severe on the left at L3-L4. 3. Mild to moderate central canal stenosis at L4-L5. 4. Marked urinary bladder distention. 5. No abnormal enhancement. ACT 112: Negative or not required by law. The above report was generated using voice recognition software. It may contain grammatical, syntax o r spelling errors. Electronically signed by: Paul Solis M.D. 04/05/2022 4:19 PM
--- NOTE | 2022-04-05 16:23 | Hospitalist Progress Note ---
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 The bilateral parietal lobe lesions are similar in size and demonstrate improvement in the surrounding vasogenic edema. Small amount of subcutaneous to chronic hemorrhage associated with the dominant right parietal lobe lesion. No significant midline shift. --Lumbar MRI:Discogenic degeneration with spondylitic spurring and facet arthrosis as above. Multilevel neural foraminal narrowing, severe on the left at L3-L4. Mild to moderate central canal stenosis at L4-L5. Marked urinary bladder distention. No abnormal enhancement. --Chest CTA:There is no evidence of pulmonary embolus in the main, lobar, or segmental pulmonary arteries. Again seen is cardiomegaly and emphysema with postoperative change from right-sided pulmonary resection. There is no airspace consolidation typical for pneumonia. Scattered subcentimeter pulmonary nodules are pathologically indeterminant and unchanged from prior studies. Trace pleural fluid at the right lung base is unchanged and likely on a postoperative basis. --Follows with at Continue Decadron 4mg TID as recommended by Neurosurgery Consulted Neurology Consider Radiation Oncology evaluation if needed Keppra dose increased to 1 g twice a day Seizure precautions PT/OT DM II HbA1C: 7.15 Mar 2022 Continue insulin Monitor blood glucose levels HTN BP elevated on presentation likely situational Monitor COPD No signs of exacerbation Monitor H/O CVA/PAD Hyperlipidemia on statin Low back pain Lumbar MRI:Discogenic degeneration with spondylitic spurring and facet arthrosis as above. Multilevel neural foraminal narrowing, severe on the left at L3-L4. Mild to moderate central canal stenosis at L4-L5. Marked urinary bladder distention. No abnormal enhancement Pain control PT/OT Consider Ortho eval if needed H/O Keytruda induced ulcerative colitis Monitor Hypokalemia Hypomagnesemia Replace as needed Resume diuretics as able Chronic anemia Hb at baseline DVT Px: SCDs Re: Hemorrhagic brain mets Code Status Full code Admission and Anticipated Discharge Date Admission Date: April 05, 2022 Subjective Patient is seen and examined at bedside Reports having bilateral lower extremity weakness Also states having left lateral chest Offers no other complaints Family at bedside Denies any chest pain, shortness of breath, dizziness, nausea, abdominal pain Review of Systems Review of Systems: All systems reviewed & are unremarkable except as noted in Subjective Physical Exam Physical Exam: Physical Exam: Vitals signs as noted above General Appearance: Thin, frail, chronically appearing, elderly, no apparent distress Head: normocephalic, Atraumatic Eyes: normal inspection, EOMI, + left eye twitches Neck: supple, Trachea midline Respiratory/Chest: Normal breath sounds, CTA, No accessory muscle use Cardiovascular: S1, S2, No murmur Abdomen/GI:Soft, Non tender, Bowel sounds present Extremities/Musculoskeletal:normal inspection, no edema Neurologic/Psych:AAOX3, grossly no focal neurological deficits Skin: normal color, warm Results & Data Results & Data ([facility]) Vital Signs (Past 12 Hours) Vital Signs Temp Pulse Pulse Resp BP BP Pulse Ox 04/05/22 15:50 36.6 C 72 16 125/71 95 04/05/22 13:00 68 16 111/61 98 04/05/22 11:13 71 16 134/55 L 93 04/05/22 10:49 04/05/22 10:48 77 18 131/61 100 04/05/22 08:54 04/05/22 06:00 70 16 113/61 100 04/05/22 05:00 80 22 157/81 H 97 Pulse Ox O2 Del Method O2 Del Method O2 Flow Rate O2 Flow Rate 04/05/22 15:50 Room Air 04/05/22 13:00 04/05/22 11:13 04/05/22 10:49 Nasal Cannula 2 04/05/22 10:48 Nasal Cannula 2 04/05/22 08:54 97 Nasal Cannula 2 04/05/22 06:00 04/05/22 05:00 Laboratory Results Short CBC 04/04/22 04/05/22 Range/Units 17:00 05:43 WBC 6.48 4.34 L (4.8-10.8) K/ul Hgb 11.6 L 13.0 (12.0-16.0) g/dl Hct 35.3 40.6 (34.1-44.9) % Plt Count 372 388 (130-400) K/uL BMP 04/04/22 04/05/22 17:00 05:43 Sodium 139 139 Potassium 2.5 L* 3.6 D Chloride 96 L 101 Carbon Dioxide 32 28 BUN 22 17 Creatinine 0.91 0.73 Glucose 81 115 H Calcium 9.1 8.8
--- NOTE | 2022-04-05 18:51 | Neurology Consultation ---
Date of Consultation April 05, 2022 Assessment & Plan (1) Simple partial seizure disorder: (2) Lung cancer metastatic to brain: (3) Immunosuppressed status: (4) Metastatic cancer to brain: Plan ASSESSMENT and PLAN/RECOMMENDATIONS: 1. Simple partial seizures (status partialis continua) Impression: The patient has been having constant left facial myoclonic activity, and occasional left arm jerks, which is consistent with simple partial seizure disorder. The most likely underlying cause is metastatic brain lesions, vasogenic edema, and intralesional hemorrhage. Plan: I agree with increasing Keppra dosage to 1 g twice a day. Decadron treatment to decrease cerebral edema. If increased dose of Keppra and Decadron does not control simple partial seizures, then we will consider more aggressive antiepileptic treatment, in 2 days. The case was consulted with neurosurgery. At this time, there is no indication for intervention. We will follow patient is with you. 2. Brain metastases, multiple, with vasogenic edema and small intralesional hemorrhage. Impression: The patient has history of lung cancer, with established diagnosis of brain metastases, status post radiation therapy and chemotherapy. The patient has been followed by neurosurgery, hematology oncology. Plan: Continue on dexamethasone treatment as recommended by the patient's neurosurgeon. There is no indication for urgent intervention at this time. Thank you for the consultation. History of Present Illness Reason for Consultation: Seizures, brain edema with brain metastasis Requesting Physician: Franki Majano MD Attending Physician: Franki Majano MD History of Present Illness The patient is a 82-year-old pleasant female, with established diagnosis of lung cancer with metastases to brain, status post chemotherapy, brain radiation therapy, who has been followed by neurosurgery, radiation oncology and hematology oncology regularly, who presented with worsening left-sided weakness, and partial seizures involving left side of face and intermittently, left arm. The patient also reported worsening low back pain. She was recently started on baclofen by primary care physician. Head CT showed worsening cerebral edema, subacute to chronic hemorrhage and parietal lobe lesion. Based on such findings, the patient's Keppra dosage was increased, and the case was discussed with the patient as a neurosurgeon. Following brain MRI showed progressive surrounding vasogenic edema of left temporal lobe, but no change in size of bilateral parietal lobe lesions. There was no significant midline shift but some effacement of right lateral ventricle. The patient's mental status has not been altered. She denies headache. She has history of generalized seizures but for last few days, she has been having left facial twitches and occasional left arm muscle contractions and decreased dexterity, without generalized tonic- clonic activity or loss of consciousness. Lumbar spine MRI showed arthritic changes and neuroforaminal narrowings but no lesion to suggest metastases or c ord compression. I have reviewed the patient's chart including imaging studies and visualized them personally. I have discussed the case with the patient and hospitalist physician. Allergies Allergy/AdvReac Type Severity Reaction Status Date / Time baclofen AdvReac Mild felt funny Verified 04/05/22 00:23 pembrolizumab [From Anpro21] AdvReac Mild Diarrhea Verified 04/04/22 23:31 Home Medications Medication Instructions Recorded Confirmed Type cholecalciferol (vitamin D3) 25 25 mcg PO DAILY 04/04/22 04/04/22 History mcg (1,000 unit) tablet (Vitamin D3) denosumab 60 mg/mL subcutaneous 60 mg subcut .[id number] 04/04/22 04/04/22 History syringe (Prolia) gabapentin 100 mg capsule 100 mg PO HS 04/04/22 04/04/22 History insulin aspart U-100 100 unit/mL See Rx Instructions .Route .COMPLEX 04/04/22 04/04/22 History (3 mL) subcutaneous pen (Novolog Flexpen U-100 Insulin aspart) insulin glargine 100 unit/mL (3 18 unit subcut QAM 04/04/22 04/04/22 History mL) subcutaneous pen (Basaglar KwikPen U-100 Insulin) levetiracetam 750 mg tablet 750 mg PO AMHS 04/04/22 04/04/22 History levothyroxine 25 mcg tablet 25 mcg PO DAILY 04/04/22 04/04/22 History linagliptin 5 mg tablet (Tradjenta) 5 mg PO DAILY 04/04/22 04/04/22 History lorazepam 0.5 mg tablet 0.5 mg PO Q8 PRN Anxiety 04/04/22 04/04/22 History metronidazole 1 % topical gel 1 applic topical BID 04/04/22 04/04/22 History omeprazole 20 mg capsule,delayed 20 mg PO DAILY 04/04/22 04/04/22 History release rosuvastatin 10 mg tablet 10 mg PO HS 04/04/22 04/04/22 History torsemide 20 mg tablet 20 mg PO QAM 04/04/22 04/04/22 History Patient History Medical History Anemia chronic iron deficiency anemia in setting of ulcerative colitis (does receive routine iron infusions), under surveillance of [facility] hematology/GI. Arthritis Clumsiness Depression Diabetes mellitus, type 2 NIDDM Dizziness High cholesterol History of radiation therapy Hypertension Hypothyroidism Left knee DJD Left knee DJD Leg edema, left Metastasis to brain dx 09/2020. MRI imaging and radiation treatments x5. Metastatic cancer to brain Nocturnal hypoxia 2L/min NC HS Non-small cell cancer of right lung (~2016) s/p lower and middle lung lobe resection (2016), no chemo or xrt PVCs (premature ventricular contractions) Ulcerative colitis Inflectra treatments - follows with [facility] GI Surgical History History of breast biopsy History of colonoscopy History of lobectomy of lung Right VATS middle and lower lobectomy: 07/11/17: Grade 2 view, MAC#3, BANG History of repair of rotator cuff History of tonsillectomy History of tubal ligation S/P right rotator cuff repair Status post right knee replacement Family History Sister Family history of diabetes mellitus Mother Alzheimer disease Father Myocardial infarction Other Heart disease No family history of adverse response to anesthesia Social History Smoking Status: Former smoker Tobacco Type: Cigarettes Second Hand Exposure: No; Do You Dip or Chew Tobacco: No; Tobacco Cessation Education Requested by Patient: No Hx Alcohol Use: No Hx Substance Use: No Preferred Language: Greenlandic Communication Ability: Effective Visual Impairment: No Limitations Music Publisher Required: No Beliefs That Will Affect Care: None marital status: / Current Living Situation: Alone Current Living Situation Comment: [facility] How many Children do You have: 0 Other Information That Helps Us Care for You: No Feels Safe at Home: Yes Safety Concerns: Feels Safe At This Time Assistive Devices: Bedside Commode, Glasses, Oxygen - at Night and Walker Assistive Devices Comment: 2L O2 HS Physical Exam Physical Exam: General Examination: Constitutional: Well developed person in no acute distress. HENT: Normal exam with inspection. CV: Hearth rhtyhm is regular. Neck: Supple, no carotid bruits. Lungs: Non-labored and comfortable breathing. Abdomen: Soft, non-tender, non-distended. Skin: No rash or ecchymosis. Extremities: No edema or cyanosis NEUROLOGICAL EXAMINATION: Mental Status: Alert and oriented to place, person and time. Cranial Nerves: II-XII are intact. No nystagmus. Funduscopy: Normal looking optic discs. Motor: 5/5 in right upper and lower extremities. Left arm strength is 4/5 and left leg strength is 5-/5 Tone: Normal without spasticity or rigidity. Sensory: Intact to all sensory modalities except decreased sensation in toes and paresthesia of left arm. DTRs: 2- in upper extremities and 1+ in lower extremities. Coordination: Dysmetria with left FTN Speech: Fluent. Comprehension is intact. Gait: Not assessed but reportedly normal Musculoskeletal: Normal muscle bulk, no atrophy. Left facial myoclonic activity is noticed. Results & Data ([facility]) Vital Signs (Past 12 Hours) Vital Signs Temp Pulse Pulse Resp BP Pulse Ox Pulse Ox 04/05/22 16:09 75 04/05/22 16:38 04/05/22 16:15 36.6 C 72 16 125/71 95 04/05/22 15:50 36.6 C 72 16 125/71 95 04/05/22 13:00 68 16 111/61 98 04/05/22 11:13 71 16 134/55 L 93 04/05/22 10:49 04/05/22 10:48 77 18 131/61 100 04/05/22 08:54 97 O2 Del Method O2 Del Method O2 Flow Rate O2 Flow Rate 04/05/22 16:09 04/05/22 16:38 Room Air, Nasal Cannula 2 04/05/22 16:15 Room Air 04/05/22 15:50 Room Air 04/05/22 13:00 04/05/22 11:13 04/05/22 10:49 Nasal Cannula 2 04/05/22 10:48 Nasal Cannula 2 04/05/22 08:54 Nasal Cannula 2 Laboratory Results Laboratory Results - last 24 hr 04/04/22 04/04/22 04/04/22 17:00 17:00 20:00 WBC RBC Hgb Hct MCV MCH MCHC RDW Std Deviation RDW Coeff of Timothy Plt Count MPV Immature Gran % (Auto) Neut % (Auto) Lymph % (Auto) Faulk % (Auto) Eos % (Auto) Baso % (Auto) Neut # (Auto) Lymph # (Auto) Faulk # (Auto) Eos # (Auto) Baso # (Auto) Immature Gran # (Auto) Sodium 139 Potassium 2.5 L* Chloride 96 L Carbon Dioxide 32 Anion Gap 11 BUN 22 Creatinine 0.91 Est Cr Clr Drug Dosing 40.8 Est GFR ( Amer) 69.1 Est GFR (Non-Af Amer) 59.6 BUN/Creatinine Ratio 24.2 H Glucose 81 POC Glucose Calcium 9.1 Magnesium 1.4 L Troponin I High Sens 13.5 Lipase 57 SARS-CoV-2, RNA, NAAT NEGATIVE 04/05/22 04/05/22 04/05/22 02:48 05:43 05:43 WBC 4.34 L RBC 4.46 Hgb 13.0 Hct 40.6 MCV 91.0 MCH 29.1 MCHC 32.0 RDW Std Deviation 41.6 RDW Coeff of Timothy 12.6 Plt Count 388 MPV 10.0 Immature Gran % (Auto) 0.2 Neut % (Auto) 84.6 Lymph % (Auto) 12.9 Faulk % (Auto) 2.1 Eos % (Auto) 0.0 Baso % (Auto) 0.2 Neut # (Auto) 3.67 Lymph # (Auto) 0.56 L Faulk # (Auto) 0.09 L Eos # (Auto) 0.00 Baso # (Auto) 0.01 Immature Gran # (Auto) 0.01 Sodium 139 Potassium 3.6 D Chloride 101 Carbon Dioxide 28 Anion Gap 10 BUN 17 Creatinine 0.73 Est Cr Clr Drug Dosing 50.8 Est GFR ( Amer) 90.2 Est GFR (Non-Af Amer) 77.8 BUN/Creatinine Ratio 23.3 H Glucose 115 H POC Glucose 161 H Calcium 8.8 Magnesium 2.1 Troponin I High Sens Lipase SARS-CoV-2, RNA, NAAT 04/05/22 04/05/22 08:53 16:39 WBC RBC Hgb Hct MCV MCH MCHC RDW Std Deviation RDW Coeff of Timothy Plt Count MPV Immature Gran % (Auto) Neut % (Auto) Lymph % (Auto) Faulk % (Auto) Eos % (Auto) Baso % (Auto) Neut # (Auto) Lymph # (Auto) Faulk # (Auto) Eos # (Auto) Baso # (Auto) Immature Gran # (Auto) Sodium Potassium Chloride Carbon Dioxide Anion Gap BUN Creatinine Est Cr Clr Drug Dosing Est GFR ( Amer) Est GFR (Non-Af Amer) BUN/Creatinine Ratio Glucose POC Glucose 92 157 H Calcium Magnesium Troponin I High Sens Lipase SARS-CoV-2, RNA, NAAT Diagnostic Findings Chest X-Ray 04/04/22 18:06 SINGLE VIEW CHEST CLINICAL HISTORY: Atypical chest pain. FINDINGS: 2 AP, portable, upright chest radiographs are compared to study dated 12/04/2021 and correlated with chest CT dated 11/12/2021. The examination is degraded by portable technique and patient rotation. The heart is mildly enlarged noting atherosclerotic calcification of the thoracic aorta. Emphysema and chronic additional thickening is similar to previous. Postoperative change and volume loss is again seen on the right with trace pleural fluid at the right lung base. Scarring/atelectasis is noted in both lung bases. No pneumothorax is seen. The skeletal structures are osteopenic. The bony thorax is grossly intact. Arthritic changes seen in the shoulders comment noting postoperative change on the right. Superior subluxation of the humeral heads suggest chronic bilateral rotator cuff injuries. IMPRESSION: 1. No acute cardiopulmonary abnormalities identified. 2. Cardiomegaly, emphysema, postoperative change in the right lung, and additional chronic changes are similar to previous. ACT 112: Negative or not required by law. Electronically signed by: Tylor Galvan M.D. 04/04/2022 7:21 PM Chest CTA 04/04/22 18:09 CT ANGIOGRAM OF THE CHEST CLINICAL HISTORY: Atypical chest pain. Generalized weakness. COMPARISON STUDY: Chest CT dated 11/12/2021. Chest x-ray dated 04/04/2022. TECHNIQUE: Following the IV administration of 111 cc of Optiray 300, CT angiogram of the chest was performed from the upper abdomen to the thoracic inlet utilizing the pulmonary embolus protocol. Images are reviewed in the axial, sagittal, and coronal planes. 3-D MIPS images are created and assessed. IV contrast was administered without complication. A dose lowering technique was utilized adhering to the principles of ALARA. The examination is degraded by motion artifact, as well as by streak artifact from the arms which could not be elevated above the chest. FINDINGS: Thyroid: Atrophic. Thoracic aorta: There is atherosclerotic calcification of the thoracic aorta, which is normal in caliber and demonstrates standard 3-vessel arch anatomy. No dissection is seen. Pulmonary vasculature: The main pulmonary arteries are dilated suggesting pul monary artery hypertension. There are no filling defects identified in main, lobar, or segmental pulmonary branches to suggest pulmonary embolus. Heart: The heart is mildly enlarged and without pericardial effusion. The coronary arteries are densely calcified. Lungs and pleural spaces: Advanced emphysematous change is similar to previous, and there is postoperative change and volume loss from right middle and lower lobe resection. There is no airspace consolidation typical for pneumonia. The trachea and central airways are clear. Trace pleural fluid is again seen at the right lung base. Parenchymal scarring is noted at the right apex. There are scattered calcified granulomas. Numerous scattered nodular opacities throughout both lungs are similar to previous. A product representative 3 mm nodule in the right lung is seen on image #109. An irregular 4 mm nodule in the left upper lobe is seen on image #203. Mediastinum: There is no mediastinal lymphadenopathy. Robyn: Clear. Axillae: There is no axillary lymphadenopathy. Upper abdomen: A 1.6 cm cyst is seen in the left lobe of the liver. A small hiatal hernia is incidentally noted. Skeletal structures: The skeletal structures are osteopenic. Spondylotic change is noted in the thoracic spine. No lytic or blastic bony lesions are seen. Arthritic change is noted in the shoulders with evidence of previous surgery on the right. IMPRESSION: 1. There is no evidence of pulmonary embolus in the main, lobar, or segmental pulmonary arteries. 2. Again seen is cardiomegaly and emphysema with postoperative change from right-sided pulmonary resection. 3. There is no airspace consolidation typical for pneumonia. 4. Scattered subcentimeter pulmonary nodules are pathologically indeterminant and unchanged from prior studies. 5. Trace pleural fluid at the right lung base is unchanged and likely on a postoperative basis. 6. Additional findings as above ACT 112: Negative or not required by law. Electronically signed by: Tylor Galvan M.D. 04/04/2022 9:[address] 04/04/22 18:09 CT SCAN OF THE BRAIN WITHOUT IV CONTRAST CLINICAL HISTORY: Generalized weakness. Metastatic cancer. COMPARISON STUDY: CT and MRI of the brain dated 12/04/2021. TECHNIQUE: Unenhanced axial CT scan of the brain is performed from the vertex to the skull base. A dose lowering technique was utilized adhering to the principles of ALARA. CT DOSE: 842.69 mGy.cm FINDINGS: Brain parenchyma: There is slightly hyperdense mass lesion is identified in the right parietal lobe on axial image #21 measuring 2.1 cm and within the left temporal lobe on image #16 measuring 1.0 cm. These demonstrate significant surrounding edema and are consistent with metastatic disease. The showed gradient signal abnormality on the prior MRI and may be hemorrhagic. The degree of edema throughout the left hemisphere has significantly increased as compared to 12/04/2021. There is effacement of overlying cortical sulci bilaterally. There is no midline shift. No extra-axial fluid collection is identified. There is no evidence of acute territorial ischemia by CT criteria. There is age-related involutional change noting minimal recurrent hepatic disease. Ventricles, sulci, cisterns: Prominent secondary to involutional change. Intracranial vasculature: There is atherosclerotic calcification of the cavernous carotid and vertebral arteries. Calvarium: Unremarkable. Sinuses and mastoids: There is trace mucosal thickening within the left maxillary antrum. The paranasal sinuses are otherwise clear. The mastoid air cells are well pneumatized. Orbits: The bony orbits are grossly intact. There are bilateral ocular lens implants. IMPRESSION: 1. Again seen is evidence of bilateral intracranial metastatic disease. These lesions appear hyperdense, and when correlated with the 12/04/2021 MRI of the brain are likely hemorrhagic. 2. There is significant edema around these lesions. This has significantly increased throughout the left hemisphere as compared to 12/04/2021. 3. There is no midline shift or evidence of acute territorial ischemia by CT criteria. ACT 112: Negative or not required by law. Electronically signed by: Tylor Galvan M.D. 04/04/2022 9:07 PM Brain MRI 04/05/22 00:18 Brain MRI WITH AND WITHOUT CONTRAST HISTORY: Procedure. Abnormal head CT. Intracranial metastatic disease. TECHNIQUE: Multiplanar multisequence MRI of the brain was performed both before and after the intravenous administration of contrast. COMPARISON STUDY: Head CT 04/04/2022. Brain MRI 12/04/2021. FINDINGS: Suboptimal evaluation of the brain due to the motion artifact. There again noted enhancing metastatic lesions within the right parietal lobe, left parietal lobe, left temporal lobe. The parietal lobe lesions are similar in size measuring 2.2 cm on the right and 9 mm on the left. The left temporal lobe lesion has slightly increased in size and measures 1.3 cm, previously measuring 1.0 cm. Small amount of hemorrhage associated with the dominant right parietal lesion which is new from the prior study. No new intracranial metastatic lesions identified. The vasogenic edema and mass effect of the right parietal lesion has slightly improved. The vasogenic edema within the left temporal lobe lesion is slightly progressed. The vasogenic edema associated with the left parietal lobe lesion has also improved. The major vascular flow-voids at the skull base are maintained. No significant midline shift. Mild atrophic changes are again noted. Prior bilateral lens repair. Paranasal sinuses and mastoid air cells are clear. No areas restricted diffusion to suggest acute infarction. IMPRESSION: 1. Slight increase in size of the left temporal lobe metastatic lesion with progressive surrounding vasogenic edema. 2. The bilateral parietal lobe lesions are similar in size and demonstrate improvement in the surrounding vasogenic edema. 3. Small amount of subcutaneous to chronic hemorrhage associated with the dominant right parietal lobe lesion. 4. No significant midline shift. ACT 112: Negative or not required by law. Electronically signed by: James Villarreal M.D. 04/05/2022 3:39 PM Lumbar Spine MRI 04/05/22 00:18 MR lumbar spine wo/w con CLINICAL HISTORY: 82 years-old Female with back pain, hx malig. Chronic low back pain in a patient with history of metastatic lung cancer COMPARISON: CTA chest 04/04/2022, CT abdomen and pelvis 11/12/2021 TECHNIQUE: Multiplanar, multi sequence MRI of the lumbar spine was performed with and without the use of 5 cc Gadavist FINDINGS: Trace right pleural effusion. Mild right hemidiaphragmatic elevation. Cardiomegaly. T2 hyperintense foci of the kidneys are suggestive of probable cysts. There is marked distention of the urinary bladder. 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 Mild nonspecific edema within the lower lumbar paraspinal musculature. No acute fracture, subluxation or endplate erosion. The conus medullaris terminates at the L1-L2 level. Enhancement surrounding the L4-L5 and L5-S1 facets is likely degenerative related. 4 mm anterolisthesis L4 on L5 is likely secondary to chronic facet arthrosis. T12-L1: Mild intervertebral disc space narrowing and spondylitic spurring with mild to moderate facet arthrosis. No central canal or neural foraminal stenosis. L1-L2: Mild to moderate intervertebral disc space narrowing with spondylitic spurring and small circumferential annular disc bulge. Ligamentum flavum thickening with moderate facet arthrosis. Flattening of the ventral thecal sac. The central canal is patent. Mild bilateral neural foraminal narrowing. L2-L3: Mild to moderate intervertebral disc space narrowing with spondylitic spurring and small circumferential annular disc bulge. Ligamentum flavum thickening with severe facet arthrosis. Flattening of the ventral thecal sac. The central canal is patent. Mild bilateral foraminal narrowing. L3-L4: Moderate to severe disc space narrowing with spondylitic spurring and small circumferential annular disc bulge eccentric to the left. Ligamentum flavum thickening with severe facet arthrosis. The central canal is patent. Mild to moderate narrowing of the left lateral recess. Mild to moderate right with severe left neural foraminal narrowing. L4-L5: Grade 1 anterolisthesis. Moderate intervertebral disc space narrowing with spondylitic spurring and circumferential annular disc bulge with posterior disc space uncovering. Ligamentum flavum thickening with severe facet arthrosis. AP dimension of the thecal sac measures 8 mm. There is mild to moderate central canal stenosis with moderate narrowing of the lateral recesses. Moderate left with mild to moderate right neural foraminal narrowing. L5-S1: Tiny posterior annular disc bulge with mild spondylitic spurring and severe facet arthrosis. The central canal is patent. Moderate bilateral foraminal stenosis. IMPRESSION: 1. Discogenic degeneration with spondylitic spurring and facet arthrosis as above. 2. Multilevel neural foraminal narrowing, severe on the left at L3-L4. 3. Mild to moderate central canal stenosis at L4-L5. 4. Marked urinary bladder distention. 5. No abnormal enhancement. ACT 112: Negative or not required by law. The above report was generated using voice recognition software. It may contain grammatical, syntax or spelling errors. Electronically signed by: Paul Solis M.D. 04/05/2022 4:19 PM
[2022-04-05] MEDS: ROSUVASTATIN CALCIUM 10 MG TAB PO SCH (21:04)
[2022-04-06] MEDS: LEVOTHYROXINE SODIUM 25 MCG TABLET PO SCH (05:37)
[2022-04-06] MEDS: levETIRAcetam 500 MG TAB PO SCH ×2 (08:50→20:20)
[2022-04-06] MEDS: PANTOprazole 40 MG TAB PO SCH (08:50)
[2022-04-06] MEDS: dexAMETHasone 4 MG TAB PO SCH ×3 (08:50→20:19)
[2022-04-06] MEDS: INSULIN ASPART PER UNIT SC SCH ×4 (09:01→20:36)
[2022-04-06] MEDS: LANTUS PER UNIT CHARGE SQ SCH (09:01)
[2022-04-06 09:21] LABS: Calcium 8.8 mg/dl (8.5-10.1); Creatinine Clr Calc Pharmacy 41.7 ml/min; Est GFR (African American) 70.9 ml/min; Est GFR (Non-African American) 61.2 ml/min; Potassium 4.2 mmol/L (3.5-5.1)
--- NOTE | 2022-04-06 12:06 | Neurology Progress Note ---
Date of Service April 06, 2022 Assessment & Plan (1) Simple partial seizure disorder: (2) Lung cancer metastatic to brain: (3) Immunosuppressed status: (4) Metastatic cancer to brain: Plan ASSESSMENT and PLAN/RECOMMENDATIONS: 1. Simple partial seizures (status partialis continua) Impression: The patient has been having constant left facial myoclonic activity, and occasional left arm jerks, which is consistent with simple partial seizure disorder. The most likely underlying cause is metastatic brain lesions, vasogenic edema, and intralesional hemorrhage. Plan: Continue on Keppra dosage to 1 g twice a day. Dose adjustment if partial seizure continue until Friday. Decadron treatment to decrease cerebral edema. If increased dose of Keppra and Decadron does not control simple partial seizures, then we will consider more aggressive antiepileptic treatment. The case was consulted with neurosurgery. At this time, there is no indication for intervention. She will make an earlier appointment with NS to see whether she will need any intervention. We will follow patient is with you. 2. Brain metastases, multiple, with vasogenic edema and small intralesional hemorrhage. Impression: The patient has history of lung cancer, with established diagnosis of brain metastases, status post radiation therapy and chemotherapy. The patient has been followed by neurosurgery, hematology oncology. Plan: Continue on dexamethasone treatment as recommended by the patient's neurosurgeon. There is no indication for urgent intervention at this time. Admission and Anticipated Discharge Date Admission Date: April 05, 2022 Subjective Patient is seen and examined at bedside. She still has left facial twitches which she does not recognize. Left arm weakness has been better. No generalized or additional seizure activity. Tolerates Decadron and higher dose of Keppra. Eats and sleeps well. Review of Systems Review of Systems: All systems reviewed & are unremarkable except as noted in HPI & below Physical Exam Physical Exam: General Examination: Constitutional: Well developed person in no acute distress. HENT: Normal exam with inspection. CV: Hearth rhtyhm is regular. Neck: Supple, no carotid bruits. Lungs: Non-labored and comfortable breathing. Abdomen: Soft, non-tender, non-distended. Skin: No rash or ecchymosis. Bruises in extremities and left forearm skin laceration is noticed. Extremities: No edema or cyanosis NEUROLOGICAL EXAMINATION: Mental Status: Alert and oriented to place, person and time. Cranial Nerves: II-XII are intact. No nystagmus. Funduscopy: Normal looking optic discs. Motor: 5/5 in right upper and lower extremities. Left arm strength is 4+ to 5-/5 and bilateral leg strength is 5-/5 Tone: Normal without spasticity or rigidity. Sensory: Intact to all sensory modalities except decreased sensation in toes and paresthesia of left arm. DTRs: 2- in upper extremities and 1+ in lower extremities. Coordination: Dysmetria with left FTN Speech: Fluent. Comprehension is intact. Gait: Not assessed but reportedly normal Musculoskeletal: Normal muscle bulk, no atrophy. Left facial myoclonic activity is noticed. Results & Data ([facility]) Vital Signs (Past 12 Hours) Vital Signs Temp Pulse Resp BP Pulse Ox O2 Del Method O2 Flow Rate 04/06/22 11:15 36.3 C L 78 18 168/71 H 96 Room Air 04/06/22 04:03 36.5 C 69 20 151/64 H 94 Nasal Cannula 2 Laboratory Results Laboratory Results - last 24 hr 04/05/22 04/05/22 04/05/22 13:08 16:39 20:16 Sodium Potassium Chloride Carbon Dioxide Anion Gap BUN Creatinine Est Cr Clr Drug Dosing Est GFR ( Amer) Est GFR (Non-Af Amer) BUN/Creatinine Ratio Glucose POC Glucose 187 H 157 H 144 H Calcium Magnesium 04/06/22 04/06/22 04/06/22 07:50 08:24 11:27 Sodium 138 Potassium 4.2 Chloride 105 Carbon Dioxide 27 Anion Gap 6 BUN 24 H Creatinine 0.89 Est Cr Clr Drug Dosing 41.7 Est GFR ( Amer) 70.9 Est GFR (Non-Af Amer) 61.2 BUN/Creatinine Ratio 27.0 H Glucose 200 H POC Glucose 196 H 116 H Calcium 8.8 Magnesium 2.0 Diagnostic Findings Chest X-Ray 04/04/22 18:06 SINGLE VIEW CHEST CLINICAL HISTORY: Atypical chest pain. FINDINGS: 2 AP, portable, upright chest radiographs are compared to study dated 12/04/2021 and correlated with chest CT dated 11/12/2021. The examination is degraded by portable technique and patient rotation. The heart is mildly enlarged noting atherosclerotic calcification of the thoracic aorta. Emphysema and chronic additional thickening is similar to previous. Postoperative change and volume loss is again seen on the right with trace pleural fluid at the right lung base. Scarring/atelectasis is noted in both lung bases. No pneumothorax is seen. The skeletal structures are osteopenic. The bony thorax is grossly intact. Arthritic changes seen in the shoulders comment noting postoperative change on the right. Superior subluxation of the humeral heads suggest chronic bilateral rotator cuff injuries. IMPRESSION: 1. No acute cardiopulmonary abnormalities identified. 2. Cardiomegaly, emphysema, postoperative change in the right lung, and additional chronic changes are similar to previous. ACT 112: Negative or not required by law. Electronically signed by: Tylor Galvan M.D. 04/04/2022 7:21 PM Chest CTA 04/04/22 18:09 CT ANGIOGRAM OF THE CHEST CLINICAL HISTORY: Atypical chest pain. Generalized weakness. COMPARISON STUDY: Chest CT dated 11/12/2021. Chest x-ray dated 04/04/2022. TECHNIQUE: Following the IV administration of 111 cc of Optiray 300, CT angiogram of the chest was performed from the upper abdomen to the thoracic inlet utilizing the pulmonary embolus protocol. Images are reviewed in the axial, sagittal, and coronal planes. 3-D MIPS images are created and assessed. IV contrast was administered without complication. A dose lowering technique was utilized adhering to the principles of ALARA. The examination is degraded by motion artifact, as well as by streak artifact from the arms which could not be elevated above the chest. FINDINGS: Thyroid: Atrophic. Thoracic aorta: There is atherosclerotic calcification of the thoracic aorta, which is normal in caliber and demonstrates standard 3-vessel arch anatomy. No dissection is seen. Pulmonary vasculature: The main pulmonary arteries are dilated suggesting pulmonary artery hypertension. There are no filling defects identified in main, lobar, or segmental pulmonary branches to suggest pulmonary embolus. Heart: The heart is mildly enlarged and without pericardial effusion. The coronary arteries are densely calcified. Lungs and pleural spaces: Advanced emphysematous change is similar to previous, and there is postoperative change and volume loss from right middle and lower lobe resection. There is no airspace consolidation typical for pneumonia. The trachea and central airways are clear. Trace pleural fluid is again seen at the right lung base. Parenchymal scarring is noted at the right apex. There are scattered calcified granulomas. Numerous scattered nodular opacities throughout both lungs are similar to previous. A customer success representative 3 mm nodule in the right lung is seen on image #109. An irregular 4 mm nodule in the left upper lobe is seen on image #203. Mediastinum: There is no mediastinal lymphadenopathy. Robyn: Clear. Axillae: There is no axillary lymphadenopathy. Upper abdomen: A 1.6 cm cyst is seen in the left lobe of the liver. A small hiatal hernia is incidentally noted. Skeletal structures: The skeletal structures are osteopenic. Spondylotic change is noted in the thoracic spine. No lytic or blastic bony lesions are seen. Arthritic change is noted in the shoulders with evidence of previous surgery on the right. IMPRESSION: 1. There is no evidence of pulmonary embolus in the main, lobar, or segmental pulmonary arteries. 2. Again seen is cardiomegaly and emphysema with postoperative change from right-sided pulmonary resection. 3. There is no airspace consolidation typical for pneumonia. 4. Scattered subcentimeter pulmonary nodules are pathologically indeterminant and unchanged from prior studies. 5. Trace pleural fluid at the right lung base is unchanged and likely on a postoperative basis. 6. Additional findings as above ACT 112: Negative or not required by law. Electronically signed by: Tylor Galvan M.D. 04/04/2022 9:[address] 04/04/22 18:09 CT SCAN OF THE BRAIN WITHOUT IV CONTRAST CLINICAL HISTORY: Generalized weakness. Metastatic cancer. COMPARISON STUDY: CT and MRI of the brain dated 12/04/2021. TECHNIQUE: Unenhanced axial CT scan of the brain is performed from the vertex to the skull base. A dose lowering technique was utilized adhering to the principles of ALARA. CT DOSE: 842.69 mGy.cm FINDINGS: Brain parenchyma: There is slightly hyperdense mass lesion is identified in the right parietal lobe on axial image #21 measuring 2.1 cm and within the left temporal lobe on image #16 measuring 1.0 cm. These demonstrate significant surrounding edema and are consistent with metastatic disease. The showed gradient signal abnormality on the prior MRI and may be hemorrhagic. The degree of edema throughout the left hemisphere has significantly increased as compared to 12/04/2021. There is effacement of overlying cortical sulci bilaterally. There is no midline shift. No extra-axial fluid collection is identified. There is no evidence of acute territorial ischemia by CT criteria. There is age-related involutional change noting minimal recurrent hepatic disease. Ventricles, sulci, cisterns: Prominent secondary to involutional change. Intracranial vasculature: There is atherosclerotic calcification of the cavernous carotid and vertebral arteries. Calvarium: Unremarkable. Sinuses and mastoids: There is trace mucosal thickening within the left maxillary antrum. The paranasal sinuses are otherwise clear. The mastoid air cells are well pneumatized. Orbits: The bony orbits are grossly intact. There are bilateral ocular lens implants. IMPRESSION: 1. Again seen is evidence of bilateral intracranial metastatic disease. These lesions appear hyperdense, and when correlated with the 12/04/2021 MRI of the brain are likely hemorrhagic. 2. There is significant edema around these lesions. This has significantly increased throughout the left hemisphere as compared to 12/04/2021. 3. There is no midline shift or evidence of acute territorial ischemia by CT criteria. ACT 112: Negative or not required by law. Electronically signed by: Tylor Galvan M.D. 04/04/2022 9:07 PM Brain MRI 04/05/22 00:18 Brain MRI WITH AND WITHOUT CONTRAST HISTORY: Procedure. Abnormal head CT. Intracranial metastatic disease. TECHNIQUE: Multiplanar multisequence MRI of the brain was performed both before and after the intravenous administration of contrast. COMPARISON STUDY: Head CT 04/04/2022. Brain MRI 12/04/2021. FINDINGS: Suboptimal evaluation of the brain due to the motion artifact. There again noted enhancing metastatic lesions within the right parietal lobe, left parietal lobe, left temporal lobe. The parietal lobe lesions are similar in size measuring 2.2 cm on the right and 9 mm on the left. The left temporal lobe lesion has slightly increased in size and measures 1.3 cm, previously measuring 1.0 cm. Small amount of hemorrhage associated with the dominant right parietal lesion which is new from the prior study. No new intracranial metastatic lesions identified. The vasogenic edema and mass effect of the right parietal lesion has slightly improved. The vasogenic edema within the left temporal lobe lesion is slightly progressed. The vasogenic edema associated with the left parietal lobe lesion has also improved. The major vascular flow-voids at the skull base are maintained. No significant midline shift. Mild atrophic changes are again noted. Prior bilateral lens repair. Paranasal sinuses and mastoid air cells are clear. No areas restricted diffusion to suggest acute infarction. IMPRESSION: 1. Slight increase in size of the left temporal lobe metastatic lesion with progressive surrounding vasogenic edema. 2. The bilateral parietal lobe lesions are similar in size and demonstrate improvement in the surrounding vasogenic edema. 3. Small amount of subcutaneous to chronic hemorrhage associated with the dominant right parietal lobe lesion. 4. No significant midline shift. ACT 112: Negative or not required by law. Electronically signed by: James Villarreal M.D. 04/05/2022 3:39 PM Lumbar Spine MRI 04/05/22 00:18 MR lumbar spine wo/w con CLINICAL HISTORY: 82 years-old Female with back pain, hx malig. Chronic low back pain in a patient with history of metastatic lung cancer COMPARISON: CTA chest 04/04/2022, CT abdomen and pelvis 11/12/2021 TECHNIQUE: Multiplanar, multi sequence MRI of the lumbar spine was performed with and without the use of 5 cc Gadavist FINDINGS: Trace right pleural effusion. Mild right hemidiaphragmatic elevation. Cardiomegaly. T2 hyperintense foci of the kidneys are suggestive of probable cysts. There is marked distention of the urinary bladder. 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 Mild nonspecific edema within the lower lumbar paraspinal musculature. No acute fracture, subluxation or endplate erosion. The conus medullaris terminates at the L1-L2 level. Enhancement surrounding the L4-L5 and L5-S1 facets is likely degenerative related. 4 mm anterolisthesis L4 on L5 is likely secondary to chronic facet arthrosis. T12-L1: Mild intervertebral disc space narrowing and spondylitic spurring with mild to moderate facet arthrosis. No central canal or neural foraminal stenosis. L1-L2: Mild to moderate intervertebral disc space narrowing with spondylitic spurring and small circumferential annular disc bulge. Ligamentum flavum thickening with moderate facet arthrosis. Flattening of the ventral thecal sac. The central canal is patent. Mild bilateral neural foraminal narrowing. L2-L3: Mild to moderate intervertebral disc space narrowing with spondylitic spurring and small circumferential annular disc bulge. Ligamentum flavum thickening with severe facet arthrosis. Flattening of the ventral thecal sac. The central canal is patent. Mild bilateral foraminal narrowing. L3-L4: Moderate to severe disc space narrowing with spondylitic spurring and small circumferential annular disc bulge eccentric to the left. Ligamentum flavum thickening with severe facet arthrosis. The central canal is patent. Mild to moderate narrowing of the left lateral recess. Mild to moderate right with severe left neural foraminal narrowing. L4-L5: Grade 1 anterolisthesis. Moderate intervertebral disc space narrowing with spondylitic spurring and circumferential annular disc bulge with posterior disc space uncovering. Ligamentum flavum thickening with severe facet arthrosis. AP dimension of the thecal sac measures 8 mm. There is mild to moderate central canal stenosis with moderate narrowing of the lateral recesses. Moderate left with mild to moderate right neural foraminal narrowing. L5-S1: Tiny posterior annular disc bulge with mild spondylitic spurring and severe facet arthrosis. The central canal is patent. Moderate bilateral foraminal stenosis. IMPRESSION: 1. Discogenic degeneration with spondylitic spurring and facet arthrosis as above. 2. Multilevel neural foraminal narrowing, severe on the left at L3-L4. 3. Mild to moderate central canal stenosis at L4-L5. 4. Marked urinary bladder distention. 5. No abnormal enhancement. ACT 112: Negative or not required by law. The above report was generated using voice recognition software. It may contain grammatical, syntax or spelling errors. Electronically signed by: Paul Solis M.D. 04/05/2022 4:19 PM
--- NOTE | 2022-04-06 16:22 | Hospitalist Progress Note ---
Date of Service April 06, 2022 Assessment & Plan (1) Increased intracranial pressure: Plan: 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 The bilateral parietal lobe lesions are similar in size and demonstrate improvement in the surrounding vasogenic edema. Small amount of subcutaneous to chronic hemorrhage associated with the dominant right parietal lobe lesion. No significant midline shift. --Lumbar MRI:Discogenic degeneration with spondylitic spurring and facet arthrosis as above. Multilevel neural foraminal narrowing, severe on the left at L3-L4. Mild to moderate central canal stenosis at L4-L5. Marked urinary bladder distention. No abnormal enhancement. --Chest CTA:There is no evidence of pulmonary embolus in the main, lobar, or segmental pulmonary arteries. Again seen is cardiomegaly and emphysema with postoperative change from right-sided pulmonary resection. There is no airspace consolidation typical for pneumonia. Scattered subcentimeter pulmonary nodules are pathologically indeterminant and unchanged from prior studies. Trace pleural fluid at the right lung base is unchanged and likely on a postoperative basis. --Follows with at [facility] Continue Decadron 4mg TID as recommended by Neurosurgery Appreciate Neurology Input Consider Radiation Oncology evaluation if needed Keppra dose increased to 1 g twice a day Seizure precautions PT/OT Needs follow up with Neurology and Neurosurgery upon discharge DM II HbA1C: 7.15 Mar 2022 Continue insulin Monitor blood glucose levels HTN BP elevated on presentation likely situational Steroids could be contributing as well Monitor COPD No signs of exacerbation Monitor H/O CVA/PAD Hyperlipidemia on statin Low back pain Lumbar MRI:Discogenic degeneration with spondylitic spurring and facet arthrosis as above. Multilevel neural foraminal narrowing, severe on the left at L3-L4. Mild to moderate central canal stenosis at L4-L5. Marked urinary bladder distention. No abnormal enhancement Pain control PT/OT Consider Ortho eval if needed H/O Keytruda induced ulcerative colitis Monitor Hypokalemia Hypomagnesemia Replace as needed Resume torsemide tomorrow Chronic anemia Hb at baseline DVT Px: SCDs Re: Hemorrhagic brain mets Code Status Full code Admission and Anticipated Discharge Date Admission Date: April 05, 2022 Subjective Patient is seen and examined at bedside Left facial twitches better Reports mild headache today Denies any change in vision Denies any chest pain, shortness of breath, dizziness, nausea, abdominal pain Review of Systems Review of Systems: All systems reviewed & are unremarkable except as noted in Subjective Physical Exam Physical Exam: Physical Exam: Vitals signs as noted above General Appearance: Thin, frail, chronically appearing, elderly, no apparent distress Head: normocephalic, Atraumatic Eyes: normal inspection, EOMI, + left eye twitches Neck: supple, Trachea midline Respiratory/Chest: Normal breath sounds, CTA, No accessory muscle use Cardiovascular: S1, S2, No murmur Abdomen/GI:Soft, Non tender, Bowel sounds present Extremities/Musculoskeletal:normal inspection, no edema Neurologic/Psych:AAOX3, grossly no focal neurological deficits Skin: normal color, warm, Left UE skin tear Results & Data Results & Data ([facility]) Vital Signs (Past 12 Hours) Vital Signs Temp Pulse Pulse Resp BP Pulse Ox O2 Del Method 04/06/22 15:49 67 04/06/22 15:46 98 04/06/22 15:09 36.4 C L 65 20 172/74 H 96 Nasal Cannula 04/06/22 11:15 36.3 C L 78 18 168/71 H 96 Room Air O2 Flow Rate 04/06/22 15:49 04/06/22 15:46 04/06/22 15:09 2 04/06/22 11:15 Laboratory Results [facility] 04/06/22 08:24 Sodium 138 Potassium 4.2 Chloride 105 Carbon Dioxide 27 BUN 24 H Creatinine 0.89 Glucose 200 H Calcium 8.8
[2022-04-06] MEDS: ROSUVASTATIN CALCIUM 10 MG TAB PO SCH (20:19)
[2022-04-06] MEDS: GABAPENTIN 100 MG CAP PO SCH (20:19)
[2022-04-07] MEDS: INSULIN ASPART PER UNIT SC SCH ×6 (03:46→20:54)
[2022-04-07] MEDS: LEVOTHYROXINE SODIUM 25 MCG TABLET PO SCH (05:30)
[2022-04-07 07:48] LABS: Hematocrit (blood only) 38.4 % (34.1-44.9); Hemoglobin 12.4 g/dl (12.0-16.0); Mean Corpuscular Hemoglobin 29.2 pg (25.0-34.0); Mean Corpuscular Hgb Conc 32.3 g/dL (32.0-36.0); Mean Corpuscular Volume 90.6 fL (80.0-100.0); Mean Platelet Volume 10.1 fL (9.4-12.3); Platelet Count 385 K/uL (130-400); RDW Coefficient of Variation 12.6 % (11.5-14.5); Red Blood Count 4.24 M/uL (3.93-5.22); White Blood Count 11.56 K/ul (4.8-10.8)
[2022-04-07 08:12] LABS: BUN Creatinine Ratio 35.4 (10-20); Calcium 9.1 mg/dl (8.5-10.1); Est GFR (African American) 81.9 ml/min; Est GFR (Non-African American) 70.7 ml/min; Potassium 4.6 mmol/L (3.5-5.1)
[2022-04-07] MEDS: TORSEMIDE 20 MG TAB PO SCH (08:57)
[2022-04-07] MEDS: levETIRAcetam 500 MG TAB PO SCH ×2 (08:58→20:07)
[2022-04-07] MEDS: PANTOprazole 40 MG TAB PO SCH (08:58)
[2022-04-07] MEDS: dexAMETHasone 4 MG TAB PO SCH ×3 (08:58→20:07)
[2022-04-07] MEDS: LANTUS PER UNIT CHARGE SQ SCH (09:05)
--- NOTE | 2022-04-07 11:14 | Pharmacy Report ---
Pharmacy Glycemic Short Note 2 - Date of Service April 07, 2022 - Glycemic Short BSG Results (Last 24 hours): 04/06/22 04/06/22 04/06/22 11:27 16:18 16:19 Glucose POC Glucose 116 H 64 L* 65 L* 04/06/22 04/06/22 04/06/22 17:09 20:35 23:55 Glucose POC Glucose 123 H 93 174 H 04/07/22 04/07/22 04/07/22 03:42 07:16 07:27 Glucose 144 H POC Glucose 141 H 137 H OUTPATIENT ANTIDIABETIC REGIMEN: * Basaglar 18 units Qam, Novolog CF of 25 for BSG >150 mg/dL, tradjenta * A1c per notes 7.5% - Mar 2022 ASSESSMENT: 04/07/22 * Patient's BSGs yesterday were [id number] mg/dL. Overnight BSGs were 174- 141 mg/dL. Fasting today is 137 mg/dL. * Patient received 27 units of insulin yesterday (15 units of basal and 12 units of bolus) plus 3 units of insulin overnight. * Fasting within range. Increase basal to 18 units daily as patient received 3 units overnight. * Patient continues on dexamethasone 4 mg PO TID. * Continue Novolog as BSGs within range. BACKGROUND * 82 year old admitted with dizziness. PMHx significant for non-small cell lung cancer status with brain mets, DM2, ulcerative colitis, seizure disorder * Pharmacy consulted for glycemic management. Steroids started on admission per recommendation by [facility] neurosurgery. Patient received one dose of IV dexamethasone last evening. Lantus dose of 15 units given early this AM * Fasting BSG 92 mg/dL - will hold further basal insulin this morning, may add scale for HS in case BSGs are trending upward with ongoing steroids PLAN FOR INPATIENT GLYCEMIC CONTROL: * Hold outpatient oral diabetes medications * Basal insulin * Lantus 18 units Qam * Bolus insulin * NovoLog per scale ACHS or Q6hrs while NPO * Goal Range: Low 110 mg/dL - High 140 mg/dL * Correction Factor: 25 mg/dL/unit * Nutritional / Prandial insulin per carb ratio of 1 unit per 10 grams CHO consumed
--- NOTE | 2022-04-07 16:21 | Hospitalist Progress Note ---
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 The bilateral parietal lobe lesions are similar in size and demonstrate improvement in the surrounding vasogenic edema. Small amount of subcutaneous to chronic hemorrhage associated with the dominant right parietal lobe lesion. No significant midline shift. --Lumbar MRI:Discogenic degeneration with spondylitic spurring and facet arthrosis as above. Multilevel neural foraminal narrowing, severe on the left at L3-L4. Mild to moderate central canal stenosis at L4-L5. Marked urinary bladder distention. No abnormal enhancement. --Chest CTA:There is no evidence of pulmonary embolus in the main, lobar, or segmental pulmonary arteries. Again seen is cardiomegaly and emphysema with postoperative change from right-sided pulmonary resection. There is no airspace consolidation typical for pneumonia. Scattered subcentimeter pulmonary nodules are pathologically indeterminant and unchanged from prior studies. Trace pleural fluid at the right lung base is unchanged and likely on a postoperative basis. --Follows with at [facility] Continue Decadron 4mg TID as recommended by Neurosurgery Appreciate Neurology Input Consider Radiation Oncology evaluation if needed Keppra dose increased to 1 g twice a day Seizure precautions PT/OT Needs follow up with Neurology and Neurosurgery upon discharge Left facial twitches seemed to have resolved DM II HbA1C: 7.15 Mar 2022 Continue insulin Monitor blood glucose levels HTN BP elevated on presentation likely situational Steroids could be contributing as well BP better today COPD No signs of exacerbation Monitor H/O CVA/PAD Hyperlipidemia on statin Low back pain Lumbar MRI:Discogenic degeneration with spondylitic spurring and facet arthrosis as above. Multilevel neural foraminal narrowing, severe on the left at L3-L4. Mild to moderate central canal stenosis at L4-L5. Marked urinary bladder distention. No abnormal enhancement Pain control PT/OT Consider Ortho eval if needed H/O Keytruda induced ulcerative colitis Monitor Hypokalemia Hypomagnesemia Replace as needed Chronic anemia Hb at baseline DVT Px: SCDs Re: Hemorrhagic brain mets Code Status Full code Admission and Anticipated Discharge Date Admission Date: April 05, 2022 Subjective Patient is seen and examined at bedside Feels better today Left facial twitches seemed to have resolved Headache resolved as well Denies any chest pain, shortness of breath, dizziness, nausea, abdominal pain No new complaints Review of Systems Review of Systems: All systems reviewed & are unremarkable except as noted in Subjective Physical Exam Physical Exam: Physical Exam: Vitals signs as noted above General Appearance: Thin, frail, chronically appearing, elderly, no apparent distress Head: normocephalic, Atraumatic Eyes: normal inspection, EOMI Neck: supple, Trachea midline Respiratory/Chest: Normal breath sounds, CTA, No accessory muscle use Cardiovascular: S1, S2, No murmur Abdomen/GI:Soft, Non tender, Bowel sounds present Extremities/Musculoskeletal:normal inspection, no edema Neurologic/Psych:AAOX3, grossly no focal neurological deficits Skin: normal color, warm, Left UE skin tear Results & Data Results & Data ([facility]) Vital Signs (Past 12 Hours) Vital Signs Temp Pulse Pulse Resp BP Pulse Ox O2 Del Method 04/07/22 16:16 36.6 C 76 18 147/67 H 94 Room Air 04/07/22 15:05 74 04/07/22 08:00 Room Air 04/07/22 11:51 36.8 C 73 20 135/82 95 Room Air 04/07/22 08:17 36.6 C 72 20 142/73 H 95 Room Air 04/07/22 07:10 69 Laboratory Results Short CBC 04/07/22 Range/Units 07:16 WBC 11.56 H (4.8-10.8) K/ul Hgb 12.4 (12.0-16.0) g/dl Hct 38.4 (34.1-44.9) % Plt Count 385 (130-400) K/uL BMP 04/07/22 07:16 Sodium 138 Potassium 4.6 Chloride 106 Carbon Dioxide 27 BUN 28 H Creatinine 0.79 Glucose 144 H Calcium 9.1
[2022-04-07] MEDS: ROSUVASTATIN CALCIUM 10 MG TAB PO SCH (20:07)
[2022-04-07] MEDS: GABAPENTIN 100 MG CAP PO SCH (20:07)
[2022-04-08] MEDS: LEVOTHYROXINE SODIUM 25 MCG TABLET PO SCH (05:46)
[2022-04-08] MEDS: TORSEMIDE 20 MG TAB PO SCH (08:33)
[2022-04-08] MEDS: PANTOprazole 40 MG TAB PO SCH (08:33)
[2022-04-08] MEDS: levETIRAcetam 500 MG TAB PO SCH ×2 (08:34→20:03)
[2022-04-08] MEDS: LANTUS PER UNIT CHARGE SQ SCH (08:37)
[2022-04-08] MEDS: INSULIN ASPART PER UNIT SC SCH ×4 (08:37→20:09)
[2022-04-08] MEDS: dexAMETHasone 4 MG TAB PO SCH ×3 (09:42→20:02)
--- NOTE | 2022-04-08 17:19 | Neurology Progress Note ---
Date of Service April 08, 2022 Assessment & Plan (1) Simple partial seizure disorder: (2) Lung cancer metastatic to brain: (3) Immunosuppressed status: (4) Metastatic cancer to brain: Plan ASSESSMENT and PLAN/RECOMMENDATIONS: 1. Simple partial seizures (status partialis continua) Impression: The patient has been having constant left facial myoclonic activity, and occasional left arm jerks, which is consistent with simple partial seizure disorder. The most likely underlying cause is metastatic brain lesions, vasogenic edema, and intralesional hemorrhage. Facial twitches has been improved. One short lasting left arm myoclonus is reported. Otherwise no seizures for last 2 days. Plan: Continue on Keppra dosage to 1 g twice a day. Dose increment to 1250 mg BID if partial seizures return. Decadron treatment to decrease cerebral edema. The case was consulted with neurosurgery. At this time, there is no indication for intervention. She will make an earlier appointment with NS to see whether she will need any intervention. F/u at neurology clinic in a month. We will sign off at this time. Please contact us as needed. 2. Brain metastases, multiple, with vasogenic edema and small intralesional hemorrhage. Impression: The patient has history of lung cancer, with established diagnosis of brain metastases, status post radiation therapy and chemotherapy. The patient has been followed by neurosurgery, hematology oncology. Plan: Continue on dexamethasone treatment as recommended by the patient's neurosurgeon. There is no indication for urgent intervention. Admission and Anticipated Discharge Date Admission Date: April 05, 2022 Subjective Patient is seen and examined at bedside Feels better today Left facial twitches has been improved. She reported short lasting left arm myoclonic activity but otherwise no clinical seizures for last two days. No headaches or new neuro symptoms. Review of Systems Review of Systems: All systems reviewed & are unremarkable except as noted in HPI & below Physical Exam Physical Exam: General Examination: Constitutional: Well developed person in no acute distress. HENT: Normal exam with inspection. CV: Hearth rhtyhm is regular. Neck: Supple, no carotid bruits. Lungs: Non-labored and comfortable breathing. Abdomen: Soft, non-tender, non-distended. Skin: No rash or ecchymosis. Bruises in extremities and left forearm skin laceration is noticed. Extremities: No edema or cyanosis NEUROLOGICAL EXAMINATION: Mental Status: Alert and oriented to place, person and time. Cranial Nerves: II-XII are intact. No nystagmus. Funduscopy: Normal looking optic discs. Motor: 5/5 in right upper and lower extremities. Left arm strength is 4+ to 5-/5 and bilateral leg strength is 5-/5 Tone: Normal without spasticity or rigidity. Sensory: Intact to all sensory modalities except decreased sensation in toes and paresthesia of left arm. DTRs: 2- in upper extremities and 1+ in lower extremities. Coordination: Dysmetria with left FTN Speech: Fluent. Comprehension is intact. Gait: Not assessed but reportedly normal Musculoskeletal: Normal muscle bulk, no atrophy. No facial twitches. Results & Data ([facility]) Vital Signs (Past 12 Hours) Vital Signs Temp Pulse Pulse Resp BP Pulse Ox O2 Del Method 04/08/22 16:04 36.6 C 73 18 128/81 95 Room Air 04/08/22 14:27 73 04/08/22 11:36 36.3 C L 76 18 118/73 96 Room Air 04/08/22 06:34 62 04/08/22 07:13 36.6 C 71 18 117/57 L 97 Room Air Diagnostic Findings Chest X-Ray 04/04/22 18:06 SINGLE VIEW CHEST CLINICAL HISTORY: Atypical chest pain. FINDINGS: 2 AP, portable, upright chest radiographs are compared to study dated 12/04/2021 and correlated with chest CT dated 11/12/2021. The examination is degraded by portable technique and patient rotation. The heart is mildly enlarged noting atherosclerotic calcification of the thoracic aorta. Emphysema and chronic additional thickening is similar to previous. Postoperative change and volume loss is again seen on the right with trace pleural fluid at the right lung base. Scarring/atelectasis is noted in both lung bases. No pneumothorax is seen. The skeletal structures are osteopenic. The bony thorax is grossly intact. Arthritic changes seen in the shoulders comment noting postoperative change on the right. Superior subluxation of the humeral heads suggest chronic bilateral rotator cuff injuries. IMPRESSION: 1. No acute cardiopulmonary abnormalities identified. 2. Cardiomegaly, emphysema, postoperative change in the right lung, and additional chronic changes are similar to previous. ACT 112: Negative or not required by law. Electronically signed by: Tylor Galvan M.D. 04/04/2022 7:21 PM Chest CTA 04/04/22 18:09 CT ANGIOGRAM OF THE CHEST CLINICAL HISTORY: Atypical chest pain. Generalized weakness. COMPARISON STUDY: Chest CT dated 11/12/2021. Chest x-ray dated 04/04/2022. TECHNIQUE: Following the IV administration of 111 cc of Optiray 300, CT angiogram of the chest was performed from the upper abdomen to the thoracic inlet utilizing the pulmonary embolus protocol. Images are reviewed in the axial, sagittal, and coronal planes. 3-D MIPS images are created and assessed. IV contrast was administered without complication. A dose lowering technique was utilized adhering to the principles of ALARA. The examination is degraded by motion artifact, as well as by streak artifact from the arms which could not be elevated above the chest. FINDINGS: Thyroid: Atrophic. Thoracic aorta: There is atherosclerotic calcification of the thoracic aorta, which is normal in caliber and demonstrates standard 3-vessel arch anatomy. No dissection is seen. Pulmonary vasculature: The main pulmonary arteries are dilated suggesting pulmonary artery hypertension. There are no filling defects identified in main, lobar, or segmental pulmonary branches to suggest pulmonary embolus. Heart: The heart is mildly enlarged and without pericardial effusion. The coronary arteries are densely calcified. Lungs and pleural spaces: Advanced emphysematous change is similar to previous, and there is postoperative change and volume loss from right middle and lower lobe resection. There is no airspace consolidation typical for pneumonia. The trachea and central airways are clear. Trace pleural fluid is again seen at the right lung base. Parenchymal scarring is noted at the right apex. There are scattered calcified granulomas. Numerous scattered nodular opacities throughout both lungs are similar to previous. A loan servicing representative 3 mm nodule in the right lung is seen on image #109. An irregular 4 mm nodule in the left upper lobe is seen on image #203. Mediastinum: There is no mediastinal lymphadenopathy. Robyn: Clear. Axillae: There is no axillary lymphadenopathy. Upper abdomen: A 1.6 cm cyst is seen in the left lobe of the liver. A small hiatal hernia is incidentally noted. Skeletal structures: The skeletal structures are osteopenic. Spondylotic change is noted in the thoracic spine. No lytic or blastic bony lesions are seen. Arth ritic change is noted in the shoulders with evidence of previous surgery on the right. IMPRESSION: 1. There is no evidence of pulmonary embolus in the main, lobar, or segmental pulmonary arteries. 2. Again seen is cardiomegaly and emphysema with postoperative change from right-sided pulmonary resection. 3. There is no airspace consolidation typical for pneumonia. 4. Scattered subcentimeter pulmonary nodules are pathologically indeterminant and unchanged from prior studies. 5. Trace pleural fluid at the right lung base is unchanged and likely on a postoperative basis. 6. Additional findings as above ACT 112: Negative or not required by law. Electronically signed by: Tylor Galvan M.D. 04/04/2022 9:[address] 04/04/22 18:09 CT SCAN OF THE BRAIN WITHOUT IV CONTRAST CLINICAL HISTORY: Generalized weakness. Metastatic cancer. COMPARISON STUDY: CT and MRI of the brain dated 12/04/2021. TECHNIQUE: Unenhanced axial CT scan of the brain is performed from the vertex to the skull base. A dose lowering technique was utilized adhering to the principles of ALARA. CT DOSE: 842.69 mGy.cm FINDINGS: Brain parenchyma: There is slightly hyperdense mass lesion is identified in the right parietal lobe on axial image #21 measuring 2.1 cm and within the left temporal lobe on image #16 measuring 1.0 cm. These demonstrate significant surrounding edema and are consistent with metastatic disease. The showed gradient signal abnormality on the prior MRI and may be hemorrhagic. The degree of edema throughout the left hemisphere has significantly increased as compared to 12/04/2021. There is effacement of overlying cortical sulci bilaterally. There is no midline shift. No extra-axial fluid collection is identified. There is no evidence of acute territorial ischemia by CT criteria. There is age-related involutional change noting minimal recurrent hepatic disease. Ventricles, sulci, cisterns: Prominent secondary to involutional change. Intracranial vasculature: There is atherosclerotic calcification of the cavernous carotid and vertebral arteries. Calvarium: Unremarkable. Sinuses and mastoids: There is trace mucosal thickening within the left maxillary antrum. The paranasal sinuses are otherwise clear. The mastoid air cells are well pneumatized. Orbits: The bony orbits are grossly intact. There are bilateral ocular lens implants. IMPRESSION: 1. Again seen is evidence of bilateral intracranial metastatic disease. These lesions appear hyperdense, and when correlated with the 12/04/2021 MRI of the brain are likely hemorrhagic. 2. There is significant edema around these lesions. This has significantly increased throughout the left hemisphere as compared to 12/04/2021. 3. There is no midline shift or evidence of acute territorial ischemia by CT criteria. ACT 112: Negative or not required by law. Electronically signed by: Tylor Galvan M.D. 04/04/2022 9:07 PM Brain MRI 04/05/22 00:18 Brain MRI WITH AND WITHOUT CONTRAST HISTORY: Procedure. Abnormal head CT. Intracranial metastatic disease. TECHNIQUE: Multiplanar multisequence MRI of the brain was performed both before and after the intravenous administration of contrast. COMPARISON STUDY: Head CT 04/04/2022. Brain MRI 12/04/2021. FINDINGS: Suboptimal evaluation of the brain due to the motion artifact. There again noted enhancing metastatic lesions within the right parietal lobe, left parietal lobe, left temporal lobe. The parietal lobe lesions are similar in size measuring 2.2 cm on the right and 9 mm on the left. The left temporal lobe lesion has slightly increased in size and measures 1.3 cm, previously measuring 1.0 cm. Small amount of hemorrhage associated with the dominant right parietal lesion which is new from the prior study. No new intracranial metastatic lesions identified. The vasogenic edema and mass effect of the right parietal lesion has slightly improved. The vasogenic edema within the left temporal lobe lesion is slightly progressed. The vasogenic edema associated with the left parietal lobe lesion has also improved. The major vascular flow-voids at the skull base are maintained. No significant midline shift. Mild atrophic changes are again noted. Prior bilateral lens repair. Paranasal sinuses and mastoid air cells are clear. No areas restricted diffusion to suggest acute infarction. IMPRESSION: 1. Slight increase in size of the left temporal lobe metastatic lesion with progressive surrounding vasogenic edema. 2. The bilateral parietal lobe lesions are similar in size and demonstrate improvement in the surrounding vasogenic edema. 3. Small amount of subcutaneous to chronic hemorrhage associated with the dominant right parietal lobe lesion. 4. No significant midline shift. ACT 112: Negative or not required by law. Electronically signed by: James Villarreal M.D. 04/05/2022 3:39 PM Lumbar Spine MRI 04/05/22 00:18 MR lumbar spine wo/w con CLINICAL HISTORY: 82 years-old Female with back pain, hx malig. Chronic low back pain in a patient with history of metastatic lung cancer COMPARISON: CTA chest 04/04/2022, CT abdomen and pelvis 11/12/2021 TECHNIQUE: Multiplanar, multi sequence MRI of the lumbar spine was performed with and without the use of 5 cc Gadavist FINDINGS: Trace right pleural effusion. Mild right hemidiaphragmatic elevation. Cardiomegaly. T2 hyperintense foci of the kidneys are suggestive of probable cysts. There is marked distention of the urinary bladder. 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 Mild nonspecific edema within the lower lumbar paraspinal musculature. No acute fracture, subluxation or endplate erosion. The conus medullaris terminates at the L1-L2 level. Enhancement surrounding the L4-L5 and L5-S1 facets is likely degenerative related. 4 mm anterolisthesis L4 on L5 is likely secondary to chronic facet arthrosis. T12-L1: Mild intervertebral disc space narrowing and spondylitic spurring with mild to moderate facet arthrosis. No central canal or neural foraminal stenosis. L1-L2: Mild to moderate intervertebral disc space narrowing with spondylitic spurring and small circumferential annular disc bulge. Ligamentum flavum thickening with moderate facet arthrosis. Flattening of the ventral thecal sac. The central canal is patent. Mild bilateral neural foraminal narrowing. L2-L3: Mild to moderate intervertebral disc space narrowing with spondylitic spurring and small circumferential annular disc bulge. Ligamentum flavum thickening with severe facet arthrosis. Flattening of the ventral thecal sac. The central canal is patent. Mild bilateral foraminal narrowing. L3-L4: Moderate to severe disc space narrowing with spondylitic spurring and small circumferential annular disc bulge eccentric to the left. Ligamentum flavum thickening with severe facet arthrosis. The central canal is patent. Mild to moderate narrowing of the left lateral recess. Mild to moderate right with severe left neural foraminal narrowing. L4-L5: Grade 1 anterolisthesis. Moderate intervertebral disc space narrowing with spondylitic spurring and circumferential annular disc bulge with posterior disc space uncovering. Ligamentum flavum thickening with severe facet arthrosis. AP dimension of the thecal sac measures 8 mm. There is mild to moderate central canal stenosis with moderate narrowing of the lateral recesses. Moderate left with mild to moderate right neural foraminal narrowing. L5-S1: Tiny posterior annular disc bulge with mild spondylitic spurring and severe facet arthrosis. The central canal is patent. Moderate bilateral foraminal stenosis. IMPRESSION: 1. Discogenic degeneration with spondylitic spurring and facet arthrosis as above. 2. Multilevel neural foraminal narrowing, severe on the left at L3-L4. 3. Mild to moderate central canal stenosis at L4-L5. 4. Marked urinary bladder distention. 5. No abnormal enhancement. ACT 112: Negative or not required by law. The above report was generated using voice recognition software. It may contain grammatical, syntax or spelling errors. Electronically signed by: Paul Solis M.D. 04/05/2022 4:19 PM
--- NOTE | 2022-04-08 18:37 | Hospitalist Progress Note ---
Date of Service April 08, 2022 Assessment & Plan (1) Increased intracranial pressure: Plan: 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 The bilateral parietal lobe lesions are similar in size and demonstrate improvement in the surrounding vasogenic edema. Small amount of subcutaneous to chronic hemorrhage associated with the dominant right parietal lobe lesion. No significant midline shift. --Lumbar MRI:Discogenic degeneration with spondylitic spurring and facet arthrosis as above. Multilevel neural foraminal narrowing, severe on the left at L3-L4. Mild to moderate central canal stenosis at L4-L5. Marked urinary bladder distention. No abnormal enhancement. --Chest CTA:There is no evidence of pulmonary embolus in the main, lobar, or segmental pulmonary arteries. Again seen is cardiomegaly and emphysema with postoperative change from right-sided pulmonary resection. There is no airspace consolidation typical for pneumonia. Scattered subcentimeter pulmonary nodules are pathologically indeterminant and unchanged from prior studies. Trace pleural fluid at the right lung base is unchanged and likely on a postoperative basis. --Follows with at [facility] Continue Decadron 4mg TID as recommended by Neurosurgery Appreciate Neurology Input Consider Radiation Oncology evaluation if needed Keppra dose increased to 1 g twice a day Seizure precautions PT/OT Needs follow up with Neurology and Neurosurgery upon discharge Continue current management Plan to increase Keppra dose to 1250 mg twice daily if patient has recurrence of seizures Monitor DM II HbA1C: 7.15 Mar 2022 Continue insulin Monitor blood glucose levels HTN BP elevated on presentation likely situational Steroids could be contributing as well BP stable COPD No signs of exacerbation Monitor H/O CVA/PAD Hyperlipidemia on statin Low back pain Lumbar MRI:Discogenic degeneration with spondylitic spurring and facet arthrosis as above. Multilevel neural foraminal narrowing, severe on the left at L3-L4. Mild to moderate central canal stenosis at L4-L5. Marked urinary bladder distention. No abnormal enhancement Pain control PT/OT Consider Ortho eval if needed H/O Keytruda induced ulcerative colitis Monitor Hypokalemia Hypomagnesemia Replace as needed Chronic anemia Hb at baseline DVT Px: SCDs Re: Hemorrhagic brain mets Code Status Full code Admission and Anticipated Discharge Date Admission Date: April 05, 2022 Subjective Patient is seen and examined at bedside Reports myoclonic activity of left UE lasting for about 30 minutes overnight No recurrence of Left facial twitches Denies any chest pain, shortness of breath, dizziness, nausea, abdominal pain Review of Systems Review of Systems: All systems reviewed & are unremarkable except as noted in Subjective Physical Exam 2 Physical Exam: Physical Exam: Vitals signs as noted above General Appearance: Thin, frail, chronically appearing, elderly, no apparent distress Head: normocephalic, Atraumatic Eyes: normal inspection, EOMI Neck: supple, Trachea midline Respiratory/Chest: Normal breath sounds, CTA, No accessory muscle use Cardiovascular: S1, S2, No murmur Abdomen/GI:Soft, Non tender, Bowel sounds present Extremities/Musculoskeletal:normal inspection, no edema Neurologic/Psych:AAOX3, grossly no focal neurological deficits Skin: normal color, warm, Left UE skin tear Results & Data Results & Data ([facility]) Vital Signs (Past 12 Hours) Vital Signs Temp Pulse Pulse Resp BP Pulse Ox O2 Del Method 04/08/22 16:04 36.6 C 73 18 128/81 95 Room Air 04/08/22 14:27 73 04/08/22 11:36 36.3 C L 76 18 118/73 96 Room Air 04/08/22 07:13 36.6 C 71 18 117/57 L 97 Room Air
[2022-04-08] MEDS: ROSUVASTATIN CALCIUM 10 MG TAB PO SCH (20:03)
[2022-04-08] MEDS: GABAPENTIN 100 MG CAP PO SCH (20:03)
[2022-04-09] MEDS: LEVOTHYROXINE SODIUM 25 MCG TABLET PO SCH (05:37)
[2022-04-09 07:15] LABS: Hematocrit (blood only) 41.7 % (34.1-44.9); Hemoglobin 13.8 g/dl (12.0-16.0); Mean Corpuscular Hemoglobin 29.5 pg (25.0-34.0); Mean Corpuscular Hgb Conc 33.1 g/dL (32.0-36.0); Mean Corpuscular Volume 89.1 fL (80.0-100.0); Mean Platelet Volume 10.1 fL (9.4-12.3); Platelet Count 430 K/uL (130-400); RDW Coefficient of Variation 12.6 % (11.5-14.5); RDW Standard Deviation 41.1 fL (36.4-46.3); Red Blood Count 4.68 M/uL (3.93-5.22)
[2022-04-09] MEDS: dexAMETHasone 4 MG TAB PO SCH ×2 (07:23→11:52)
[2022-04-09] MEDS: PANTOprazole 40 MG TAB PO SCH (07:23)
[2022-04-09] MEDS: TORSEMIDE 20 MG TAB PO SCH (07:23)
[2022-04-09] MEDS: levETIRAcetam 500 MG TAB PO SCH (07:23)
[2022-04-09 07:38] LABS: Calcium 9.1 mg/dl (8.5-10.1); Creatinine Clr Calc Pharmacy 35.4 ml/min; Est GFR (African American) 60.2 ml/min; Est GFR (Non-African American) 51.9 ml/min; Potassium 4.4 mmol/L (3.5-5.1)
[2022-04-09] MEDS ORDERED: LANTUS PER UNIT CHARGE SQ SCH (09:00)
[2022-04-09] MEDS: INSULIN ASPART PER UNIT SC SCH ×2 (09:30→11:51)
--- NOTE | 2022-04-09 12:47 | Hospitalist Progress Note ---
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 The bilateral parietal lobe lesions are similar in size and demonstrate improvement in the surrounding vasogenic edema. Small amount of subcutaneous to chronic hemorrhage associated with the dominant right parietal lobe lesion. No significant midline shift. --Lumbar MRI:Discogenic degeneration with spondylitic spurring and facet arthrosis as above. Multilevel neural foraminal narrowing, severe on the left at L3-L4. Mild to moderate central canal stenosis at L4-L5. Marked urinary bladder distention. No abnormal enhancement. --Chest CTA:There is no evidence of pulmonary embolus in the main, lobar, or segmental pulmonary arteries. Again seen is cardiomegaly and emphysema with postoperative change from right-sided pulmonary resection. There is no airspace consolidation typical for pneumonia. Scattered subcentimeter pulmonary nodules are pathologically indeterminant and unchanged from prior studies. Trace pleural fluid at the right lung base is unchanged and likely on a postoperative basis. --Follows with at [facility] Continue Decadron 4mg TID as recommended by Neurosurgery Appreciate Neurology Input Consider Radiation Oncology evaluation if needed Keppra dose increased to 1 g twice a day Seizure precautions Discussed with ([facility]) on 04/09/22: Advised to continue Decadron 4 mg 3 times a day Will arrange for follow-up for further tapering. Needs follow up with Neurology and Neurosurgery upon discharge Plan to discharge to Rehab facility today DM II HbA1C: 7.15 Mar 2022 Continue insulin Monitor blood glucose levels HTN BP stable Monitor COPD No signs of exacerbation Monitor H/O CVA/PAD Hyperlipidemia on statin Low back pain Lumbar MRI:Discogenic degeneration with spondylitic spurring and facet arthrosis as above. Multilevel neural foraminal narrowing, severe on the left at L3-L4. Mild to moderate central canal stenosis at L4-L5. Marked urinary bladder distention. No abnormal enhancement Pain control PT/OT Consider Ortho eval if needed H/O Keytruda induced ulcerative colitis Monitor Hypokalemia Hypomagnesemia Replace as needed Chronic anemia Hb at baseline DVT Px: SCDs Re: Hemorrhagic brain mets Code Status Full code Disposition Rehab Admission and Anticipated Discharge Date Admission Date: April 05, 2022 Subjective Patient is seen and examined at bedside Doing is doing well today No recurrence of seizures Discussed with [facility] today Left UE myoclonic activity resolved Denies any chest pain, shortness of breath, dizziness, nausea, abdominal pain Plan to discharge to rehab facility today Review of Systems Review of Systems: All systems reviewed & are unremarkable except as noted in Subjective Physical Exam Physical Exam: Physical Exam: Vitals signs as noted above General Appearance: Thin, frail, chronically appearing, elderly, no apparent distress Head: normocephalic, Atraumatic Eyes: normal inspection, EOMI Neck: supple, Trachea midline Respiratory/Chest: Normal breath sounds, CTA, No accessory muscle use Cardiovascular: S1, S2, No murmur Abdomen/GI:Soft, Non tender, Bowel sounds present Extremities/Musculoskeletal:normal inspection, no edema Neurologic/Psych:AAOX3, grossly no focal neurological deficits Skin: normal color, warm, Left UE skin tear Results & Data Results & Data ([facility]) Vital Signs (Past 12 Hours) Vital Signs Temp Pulse Pulse Resp BP Pulse Ox O2 Del Method 04/09/22 10:30 35.6 C L 81 20 136/82 96 Room Air 04/09/22 07:33 35.7 C L 77 18 142/86 H 93 Room Air 04/09/22 07:17 58 L 04/09/22 04:31 36.5 C 75 19 137/83 96 Room Air Laboratory Results Short CBC 04/09/22 Range/Units 06:43 WBC 9.40 (4.8-10.8) K/ul Hgb 13.8 (12.0-16.0) g/dl Hct 41.7 (34.1-44.9) % Plt Count 430 H (130-400) K/uL BMP 04/09/22 06:43 Sodium 138 Potassium 4.4 Chloride 99 Carbon Dioxide 30 BUN 49 H D Creatinine 1.02 Glucose 213 H Calcium 9.1
--- NOTE | 2022-04-09 13:13 | Discharge Summary ---
Date of Service April 09, 2022 Admission HPI Per Admitting Provider History obtained from patient, family, and records. Medical history significant for HTN, COPD, CVA, PAD, hyperlipidemia, non-small cell lung cancer status post surgery status post Keytruda with brain mets status post radiation, DM2 insulin requiring, history Keytruda induced ulcerative colitis, seizure disorder as per records, chronic anemia (baseline hemoglobin of 11), past tobacco abuse. Last confinement November 2021 for headache and other neurologic symptoms attributed to metastatic brain cancer with associated vasogenic edema mass- effect and mild midline shift. Neurology and radiation oncology recommended Decadron course and follow-up with patient's [facility] neuro[place]geon. Patient admitted at [facility] last December 2021 for brain mets. Patient underwent laser interstitial thermal therapy of right parietal brain mets. Patient subsequently tapered off Decadron Rx by neurosurgeon. Outpatient repeat brain MRI last month showed near complete resolution of fairly severe surrounding vasogenic edema and regional mass-effect. Repeat MRI recommended by [facility] neurosurgeon next month. 3 weeks ago, patient noted back pain with RLE radiation. No weakness/numbness. No incontinence symptoms. Patient neurologist recommended outpatient MRI of the lumbar spine to rule out spinal lesion. Last week, patient noted coordination problems on the right side as per sister. Patient started by PCP on baclofen a few days ago for back pain. Patient felt to dizzy and weird on new medications. Left-sided twitching of the face and arms and legs noted by sister. Patient denies headache symptoms. EMS called to patient's home. Transient stabbing left-sided chest pain during transport. IV Decadron administered at the ER in note of abnormal CT head results following ER provider discussion with patient [facility] neurosur[place]. 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 Admission Exam Per Admitting Provider Physical Exam Physical Exam: GENERAL: Comfortable, slightly anxious, pleasant, no respiratory distress SKIN: Normal color, warm HEENT: [place] palpebral conjunctivae, no ptosis, dry buccal mucosa NECK : Supple, no tenderness CHEST : Decreased breath sounds, no tenderness HEART : RRR, no obvious murmurs ABDOMEN: Some distention, nontender BACK : Low back tenderness, negative straight leg raise test EXTREMITIES : Minimal LE swelling, no LE tenderness, no other conspicuous deformities noted NEUROLOGIC : Coherent, no facial asymmetry, gait and stance not assessed Principal Diagnosis 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 Simple partial seizure Discharge Exam Physical Exam: Vitals signs as noted above General Appearance: Thin, frail, chronically appearing, elderly, no apparent distress Head: normocephalic, Atraumatic Eyes: normal inspection, EOMI Neck: supple, Trachea midline Respiratory/Chest: Normal breath sounds, CTA, No accessory muscle use Cardiovascular: S1, S2, No murmur Abdomen/GI:Soft, Non tender, Bowel sounds present Extremities/Musculoskeletal:normal inspection, no edema Neurologic/Psych:AAOX3, grossly no focal neurological deficits Skin: normal color, warm, Left UE skin tear Discharge Data Allergies Allergy/AdvReac Type Severity Reaction Status Date / Time baclofen AdvReac Mild felt funny Verified 04/05/22 00:23 pembrolizumab [From Keytruda] AdvReac Mild Diarrhea Verified 04/04/22 23:31 Consultations 04/04/22 23:00 ED Decision to Admit Stat 04/05/22 01:24 Consult Neurology Routine Ordered Studies 04/04/22 18:09 CT angio chest PE protocol Stat CT head/brain wo con Stat 04/05/22 00:18 MRI Brain [MR brain seizure wo/w con] Routine MRI Lumbar Spine [MR lumbar spine wo/w con] Routine Hospital Course (1) Increased intracranial pressure: 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 The bilateral parietal lobe lesions are similar in size and demonstrate improvement in the surrounding vasogenic edema. Small amount of subcutaneous to chronic hemorrhage associated with the dominant right parietal lobe lesion. No significant midline shift. --Lumbar MRI:Discogenic degeneration with spondylitic spurring and facet arthrosis as above. Multilevel neural foraminal narrowing, severe on the left at L3-L4. Mild to moderate central canal stenosis at L4-L5. Marked urinary bladder distention. No abnormal enhancement. --Chest CTA:There is no evidence of pulmonary embolus in the main, lobar, or segmental pulmonary arteries. Again seen is cardiomegaly and emphysema with postoperative change from right-sided pulmonary resection. There is no airspace consolidation typical for pneumonia. Scattered subcentimeter pulmonary nodules are pathologically indeterminant and unchanged from prior studies. Trace pleural fluid at the right lung base is unchanged and likely on a postoperative basis. --Follows with at [facility] Continue Decadron 4mg TID as recommended by Neurosurgery Appreciate Neurology Input Consider Radiation Oncology evaluation if needed Keppra dose increased to 1 g twice a day Seizure precautions Discussed with ([facility]) on 04/09/22: Advised to continue Decadron 4 mg 3 times a day Will arrange for follow-up for further tapering. Needs follow up with Neurology and Neurosurgery upon discharge Plan to discharge to Rehab facility today DM II HbA1C: 7.15 Mar 2022 Continue insulin Monitor blood glucose levels HTN BP stable Monitor COPD No signs of exacerbation Monitor H/O CVA/PAD Hyperlipidemia on statin Low back pain Lumbar MRI:Discogenic degeneration with spondylitic spurring and facet arthrosis as above. Multilevel neural foraminal narrowing, severe on the left at L3-L4. Mild to moderate central canal stenosis at L4-L5. Marked urinary bladder distention. 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 Simple partial seizure Activity: Per Instructions section Exercise/Sports: Gradually increase as tolerated Non-emergency contact: Primary Care Provider, Surgeon and Neurologist Call non-emergency contact if: you have any medication questions, your symptoms worsen, your pain is concerning for you and you have a fever Follow-up/Referrals: Danny Ibarra MD [Primary Care Provider] - Freda Chowdhury PA-C [Physician [employer]] - (Date & Time 04/26/2022 11:20 AM Provider Freda Chowdhury PA-C Department Neurology [facility] ) Diet: Carb Consistent or DM2 and Heart Healthy Addtl Attending Provider Instructions: Follow-up with your primary care physician Dr. Ibarra in 1 week upon discharge from rehab facility Follow-up with your neurologist Freda Chowdhury PA-C on 04/26/2022 11:20 AM as scheduled Follow-up with your neurosurgeon Dr. Acevedo in 2 to 3 weeks as advised --- Continue Decadron 4 mg 3 times a day as recommended by your neurosurgeon Dr. Acevedo until follow-up for further tapering of medication. --Your insulin need to be adjusted based on your blood glucose levels while on steroids at rehab facility. Seek immediate medical attention if your symptoms reoccur or worsen Please take all medications as instructed on discharge list below. Please call if you have any questions or problems. You can reach a [facility] hospitalist on duty at [facility] 24 hours a day by calling [phone] Pending Studies at Discharge: No Stand-Alone Forms: My [facility] Skilled Items Patient informed of condition?: Yes DNR: No Discharge Level of Care: Acute rehab Communicable Disease: No Discharge Prognosis: Stable Lines: None Urinary Catheter: No Medications and DC Order Prescriptions: New levetiracetam [Keppra] 500 mg Tablet 1,000 mg PO AMHS Qty: 0 0RF dexamethasone 4 mg Tablet 4 mg PO TID Qty: 0 0RF Continued torsemide 20 mg tablet 20 mg PO QAM levothyroxine 25 mcg tablet 25 mcg PO DAILY lorazepam 0.5 mg tablet 0.5 mg PO Q8 PRN (Reason: Anxiety) omeprazole 20 mg capsule,delayed release(DR/EC) 20 mg PO DAILY gabapentin 100 mg capsule 100 mg PO HS insulin aspart U-100 [Novolog Flexpen U-100 Insulin] 100 unit/mL (3 mL) insulin pen See Rx Instructions .ROUTE .COMPLEX Rx Instructions: 1 unit for every 25 points bsg > 150 before meals when bsg taken rosuvastatin 10 mg tablet 10 mg PO HS metronidazole 1 % gel 1 applic TOPICAL BID Rx Instructions: once to bid cholecalciferol (vitamin D3) [Vitamin D3] 25 mcg (1,000 unit) Tablet 25 mcg PO DAILY Prolia 60 mg/mL Syringe 60 mg SUBCUT .[id number] Tradjenta 5 mg tablet 5 mg PO DAILY Changed insulin glargine [Basaglar KwikPen U-100 Insulin] 100 unit/mL (3 mL) insulin pen 25 unit SUBCUT QAM Qty: 15 0RF Discontinued levetiracetam 750 mg tablet 750 mg PO AMHS Discharge Orders: Discharge Order (Routine); Ordered 04/09/22 Ordered By: Stuart Crawley Admission Data Admit Date/Time: 04/05/22 00:14 Attending Provider: Stuart Crawley Admit Provider: Fazal Lund Primary Care Provider: Danny Ibarra Other Providers: Fazal Lund ; Gonsalo Horowitz ; [facility]
[2022-04-09 14:47] VITALS: PULSE 74; TEMP 97.7; O2SAT 97
[2022-04-09 15:10] VITALS: BP 125/71
== END 2022-04-09 16:41 | DRG 80 ==
LOC: ED 16:48 → EDINP 04-05 00:14 → SUATTDRO 04-05 00:14 → 2W 04-05 01:25
DX: Z79.890 Hormone replacement therapy; E03.9 Hypothyroidism, unspecified; J44.9 Chronic obstructive pulmonary disease, unspecified; I10 Essential (primary) hypertension; I61.8 Other nontraumatic intracerebral hemorrhage; E78.5 Hyperlipidemia, unspecified; Z79.84 Long term (current) use of oral hypoglycemic drugs; G40.109 Localization-related (focal) (partial) symptomatic epilepsy and epileptic syndromes with simple partial seizures, not intractable, without status epilepticus; Z79.899 Other long term (current) drug therapy; E11.51 Type 2 diabetes mellitus with diabetic peripheral angiopathy without gangrene; Z86.73 Personal history of transient ischemic attack (TIA), and cerebral infarction without residual deficits; D84.9 Immunodeficiency, unspecified; Z87.891 Personal history of nicotine dependence; Z83.3 Family history of diabetes mellitus; Z88.8 Allergy status to other drugs, medicaments and biological substances; M54.50 Low back pain, unspecified; E87.6 Hypokalemia; Z82.49 Family history of ischemic heart disease and other diseases of the circulatory system; Z87.19 Personal history of other diseases of the digestive system; Z79.4 Long term (current) use of insulin; C79.31 Secondary malignant neoplasm of brain; G93.6 Cerebral edema; E83.42 Hypomagnesemia; Z85.118 Personal history of other malignant neoplasm of bronchus and lung

== ENCOUNTER 2022-07-15 16:49 | Inpatient (IN) ==
[2022-07-15 19:03] LABS: Hematocrit (blood only) 42.4 % (34.1-44.9); Hemoglobin 14.4 g/dl (12.0-16.0); Mean Corpuscular Hemoglobin 29.8 pg (25.0-34.0); Mean Corpuscular Volume 87.6 fL (80.0-100.0); Mean Platelet Volume 10.9 fL (9.4-12.3); Nucleated RBC % (auto) 1.7 %; Platelet Count 194 K/uL (130-400); RDW Coefficient of Variation 18.3 % (11.5-14.5); RDW Standard Deviation 55.8 fL (36.4-46.3); Red Blood Count 4.84 M/uL (3.93-5.22); White Blood Count 12.11 K/ul (4.8-10.8)
[2022-07-15 19:24] LABS: Basophils # (auto) 0.07 K/uL (0-0.2); Basophils % (auto) 0.6 %; Eosinophils % (auto) 0.8 %; Immature Granulocytes # (auto) 0.64 K/uL (0.00-0.02); Immature Granulocytes % (auto) 5.3 %; Lymphocytes # (auto) 0.25 K/uL (1.2-3.4); Lymphocytes % (auto) 2.1 %; Monocytes # (auto) 0.21 K/uL (0.24-0.82); Monocytes % (auto) 1.7 %; Neutrophils # (auto) 10.84 K/uL (1.4-6.5); Neutrophils % (auto) 89.5 %
[2022-07-15 19:30] LABS: Alanine Aminotransferase 64 U/L (7-52); Albumin Globulin Ratio 1.1 (0.9-2); Albumin Level 3.5 gm/dl (3.4-5.0); Alkaline Phosphatase 83 U/L (34-104); Anion Gap 12 (3-11); Aspartate Aminotransferase 52 U/L (13-39); BUN Creatinine Ratio 68.9 (10-20); Bilirubin,Total 0.5 mg/dl (0.2-1.0); Blood Urea Nitrogen 104 mg/dl (6-23); Calcium 9.1 mg/dl (8.5-10.1); Carbon Dioxide 26 mmol/L (21-32); Chloride 106 mmol/L (98-107); Est GFR (African American) 37.4 ml/min; Est GFR (Non-African American) 32.3 ml/min; Globulin 3.2 gm/dl (2.5-4.0); Glucose 206 mg/dl (70-99(Fasting)); Magnesium 2.3 mg/dl (1.7-2.4); Potassium 4.4 mmol/L (3.5-5.1); Sodium 144 mmol/L (136-145); Total Protein 6.7 gm/dl (6.0-8.3)
[2022-07-15 20:17] LABS: Partial Thromboplastin Ratio 0.7; Prothrombin Time 10.2 Seconds (9.0-12.0)
[2022-07-15 20:25] LABS: Partial Thromboplastin Time < 20.0 Seconds (21.0-31.0)
[2022-07-15] MEDS ORDERED: CEFEPIME 2,000 MG/20 ML VIAL IV STA (21:32)
[2022-07-15] MEDS ORDERED: VANCOMYCIN HCL 1,000 MG in SODIUM CHLORIDE 0.9% 500 ML IV ONE (21:46)
[2022-07-15] MEDS ORDERED: VANCOMYCIN CONSULT ACTIVE PRN (21:46)
[2022-07-15] MEDS ORDERED: SODIUM CHLORIDE 0.9% 500 ML IV ONE (21:57)
--- NOTE | 2022-07-15 22:02 | Emergency Department Note ---
Impression & Plan Cellulitis, toe, Diabetes mellitus, type 2, Lung cancer metastatic to brain, Weakness ED Provider Note Provider: Go Gann MD DATE OF SERVICE: 07/15/2022 CHIEF COMPLAINT: Weak, toe infections HISTORY OF PRESENT ILLNESS: Patient is a 82-year-old female past medical history of seizures, COPD, lung cancer, brain mets, type 2 diabetes presenting today reporting she returned asked by podiatry last week and developed an infection of the past 5 days and then. Has been on Keflex as her doctor today. Switch took 1 dose of doxycycline. Denies fever but significant pain of both feet around the toes. Denies trauma. Some swelling of the legs which also feel cool. Feeling somewhat weak as well. Pain is making it very hard for her to walk at all even with her walker. Referred by her doctor here. REVIEW OF SYSTEMS: A total of 10 review of systems was obtained and negative except as stated above in the HPI. PAST MEDICAL HISTORY: As noted above MEDICATIONS: Reviewed home medications SOCIAL HISTORY: Lives alone in apartment PHYSICAL EXAM: GENERAL: alert and oriented in no acute distress on stretcher Head: normocephalic and atraumatic EYES: No injection, discharge or icterus. PERRL, EOMI. NECK: Trachea midline. Supple. ENT: Mucous membranes pink and moist. Pharynx without erythema or exudate. LUNGS: Airway patent. No retractions. Breath sounds clear with good air entry bilaterally. HEART: Regular rate and rhythm. No chest wall tenderness ABDOMEN: Soft and non-tender, without guarding or rebound. No hepatosplenomegaly or masses BACK: No midline tenderness, no SI joint tenderness. No bilateral flank tenderness. SKIN: Acyanotic, warm, dry, without rashes EXTREMITIES: Without swelling, tenderness or deformity NEUROLOGICAL: No focal deficits. No aphasia. No facial droop or slurred speech. Normal strength and tone in the extremities. Sensation to gross touch normal. Ambulatory. EK bpm a lot of artifact in the EKG. No PVC or PAC previously noted. No acute ST segment elevation or depression with a QTC of 411. CONTINUOUS CARDIAC MONITORING: was ordered and showed a heart rate of 60s-70s bpm in sinus rhythm occasional PVCs Left foot x-ray by my interpretation without evidence of fracture dislocation or acute osteomyelitis. Right foot x-ray by my interpretation without evidence of fracture dislocation or acute osteomyelitis. 1 view chest x-ray pulm interpretation without evidence of significant pneumothorax or pneumonia with chronic changes of the right upper lobe. These are stable in comparison to previous. Patient's laboratory studies and imaging reviewed. Differential includes Infection, dehydration, metabolic abnormality, hypo/hyperglycemia, electrolyte disturbance, anemia, hypoxia, cardiac sources, intracerebral event, toxicologic, neurologic, as well as other pathologies. IMPRESSION/MEDICAL DECISION MAKING: Patient initially with some low blood pressure which did improve here and given a small amount of IV fluid. Slight leukocytosis. Low suspicion for osteomyelitis given the acute onset. Very poor peripheral circulation in all extremities which are all cool and somewhat dusky. Cultures were sent. X-rays per my interpretation without evidence of obvious osteomyelitis. Will cover with broad-spectrum antibiotics given her diabetic status and the infection without improvement of Keflex at this point. Patient is having very difficult time and try to walk with her weakness concerned that she would not be able to g et around at home. Has some elevated troponin today as well likely more related to generalized illness than acute ACS. Not having active chest pain. Discussed with the patient she is agreeable to stay. She was unable to complete outpatient brachial ankle index due to calcification of the veins. Again doubt an acute occlusion at this point as it seems fairly symmetric at all extremities have poor flow. Some decreased renal function with elevated BUN. Cautiously given some IV fluid. BUN only minimally elevated. CRP 2.21 but ESR only 32 and again I have a lower suspicion for osteomyelitis. Discussed with the hospitalist for further care here. DIAGNOSIS: Bilateral toe cellulitis, weakness, PAD, type 2 diabetes , acute kidney injury DISPOSITION: Hospitalist will evaluate Patient was agreeable with this plan. Past Med/Surg History Medical History Anemia chronic iron deficiency anemia in setting of ulcerative colitis (does receive routine iron infusions), under surveillance of [facility] hematology/GI. Arthritis Clumsiness Depression Diabetes mellitus, type 2 NIDDM Dizziness High cholesterol History of radiation therapy Hypertension Hypothyroidism Left knee DJD Left knee DJD Leg edema, left Metastasis to brain dx 09/2020. MRI imaging and radiation treatments x5. Metastatic cancer to brain Nocturnal hypoxia 2L/min NC HS Non-small cell cancer of right lung (~2016) s/p lower and middle lung lobe resection (2017), no chemo or xrt PVCs (premature ventricular contractions) Ulcerative colitis Inflectra treatments - follows with [facility] GI Surgical History History of breast biopsy History of colonoscopy History of lobectomy of lung Right VATS middle and lower lobectomy: 07/11/17: Grade 2 view, MAC#3, BANG History of repair of rotator cuff History of tonsillectomy History of tubal ligation S/P right rotator cuff repair Status post right knee replacement Family History Sister Family history of diabetes mellitus Mother Alzheimer disease Father Myocardial infarction Other Heart disease No family history of adverse response to anesthesia Social History Smoking Status: Never smoker Tobacco Type: Cigarettes Second Hand Exposure: No; Hx Alcohol Use: No Hx Substance Use: No Preferred Language: Welsh Communication Ability: Effective Visual Impairment: No Limitations 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 Required: No Beliefs That Will Affect Care: None marital status: / Current Living Situation: Alone Current Living Situation Comment: [facility] How many Children do You have: 0 Feels Safe at Home: Yes Assistive Devices: Oxygen - at Night and Walker Allergies Allergies Allergy/AdvReac Type Severity Reaction Status Date / Time baclofen AdvReac Mild felt funny Verified 07/15/22 23:33 pembrolizumab [From Keytruda] AdvReac Mild Diarrhea Verified 07/15/22 23:33 Home Meds Home Medications Medication Instructions Recorded Confirmed cholecalciferol (vitamin D3) 25 25 mcg PO DAILY 04/04/22 07/15/22 mcg (1,000 unit) tablet (Vitamin D3) denosumab 60 mg/mL subcutaneous 60 mg subcut .[id number] 04/04/22 07/15/22 syringe (Prolia) gabapentin 100 mg capsule 100 mg PO HS 04/04/22 07/15/22 insulin aspart U-100 100 unit/mL 4 unit subcut TIDM 04/04/22 07/15/22 (3 mL) subcutaneous pen (Novolog Flexpen U-100 Insulin aspart) levothyroxine 25 mcg tablet 25 mcg PO DAILY 04/04/22 07/15/22 linagliptin 5 mg tablet (Tradjenta) 5 mg PO QAM 04/04/22 07/15/22 lorazepam 0.5 mg tablet 0.5 mg PO Q8 PRN Anxiety 04/04/22 07/15/22 metronidazole 1 % topical gel 1 applic topical BID 04/04/22 07/15/22 omeprazole 20 mg capsule,delayed 20 mg PO DAILY 04/04/22 07/15/22 release rosuvastatin 10 mg tablet 10 mg PO HS 04/04/22 07/15/22 torsemide 20 mg tablet 40 mg PO QAM 04/04/22 07/15/22 acetaminophen 325 mg tablet 650 mg PO Q6 PRN as directed 07/15/22 07/15/22 doxycycline hyclate 100 mg capsule 100 mg PO AMHS 07/15/22 07/15/22 insulin glargine 100 unit/mL (3 15 unit subcut QA 07/15/22 07/15/22 mL) subcutaneous pen (Basaglar KwikPen U-100 Insulin) levetiracetam 1,000 mg tablet 1,000 mg PO AMHS 07/15/22 07/15/22 lisinopril 20 mg tablet 20 mg PO QAM 07/15/22 07/15/22 mesalamine 1.2 gram tablet,delayed 2.4 g PO QAM 07/15/22 07/15/22 release Previous Rx's Medication Instructions Recorded dexamethasone 4 mg tablet 4 mg PO TID #0 tabs 04/09/22 Results & Data (ED) Vital Signs Vital Signs - 24 hr 07/15/22 17:13 07/15/22 21:31 07/15/22 22:00 Temperature 36.4 C L Temperature Source Oral Pulse Rate 76 76 61 Pulse Rate from SpO2 Sensor 60 Respiratory Rate 18 25 H 15 Respiratory Effort / Characteristics Non-Labored Respiratory Depth Normal Respiratory Pattern Regular Blood Pressure 84/53 L 106/68 Blood Pressure Mean 63 80 Pulse Oximetry 96 91 90 Oxygen Delivery Method Room Air Sepsis Recent Fever Within 48 Hours No Sepsis New/Unexplained Change in Mental Status N/A Sepsis Action Taken by Nursing No Action Required 07/15/22 22:30 07/15/22 23:30 Temperature Temperature Source Pulse Rate 59 L 63 Pulse Rate from SpO2 Sensor 61 Respiratory Rate 15 13 Respiratory Effort / Characteristics Respiratory Depth Respiratory Pattern Blood Pressure Blood Pressure Mean Pulse Oximetry 94 Oxygen Delivery Method Sepsis Recent Fever Within 48 Hours Sepsis New/Unexplained Change in Mental Status Sepsis Action Taken by Nursing Laboratory Data Result diagrams: 07/15/22 18:40 07/15/22 23:36 Lab Results 07/15/22 07/15/22 07/15/22 Range/Units 18:40 18:40 18:40 WBC 12.11 H (4.8-10.8) K/ul RBC 4.84 (3.93-5.22) M/uL Hgb 14.4 (12.0-16.0) g/dl Hct 42.4 (34.1-44.9) % MCV 87.6 (80.0-100.0) fL MCH 29.8 (25.0-34.0) pg MCHC 34.0 (32.0-36.0) g/dL RDW Std Deviation 55.8 H (36.4-46.3) fL RDW Coeff of Timothy 18.3 H (11.5-14.5) % Plt Count 194 (130-400) K/uL MPV 10.9 (9.4-12.3) fL Immature Gran % (Auto) 5.3 % Neut % (Auto) 89.5 % Lymph % (Auto) 2.1 % [place] % (Auto) 1.7 % Eos % (Auto) 0.8 % Baso % (Auto) 0.6 % Neut # (Auto) 10.84 H (1.4-6.5) K/uL Lymph # (Auto) 0.25 L (1.2-3.4) K/uL [place] # (Auto) 0.21 L (0.24-0.82) K/uL Eos # (Auto) 0.10 (0-0.50) K/uL Baso # (Auto) 0.07 (0-0.2) K/uL Immature Gran # (Auto) 0.64 H (0.00-0.02) K/uL Absolute Nucleated RBC 0.20 H (0-0) K/uL Nucleated RBC % (auto) 1.7 % ESR (0-30) mm/hr PT 10.2 (9.0-12.0) Seconds INR 1.0 (0.9-1.1) APTT < 20.0 L (21.0-31.0) Seconds PTT Ratio 0.7 Sodium 144 (136-145) mmol/L Potassium 4.4 (3.5-5.1) mmol/L Chloride 106 (98-107) mmol/L Carbon Dioxide 26 (21-32) mmol/L Anion Gap 12 H (3-11) BUN 104 H (6-23) mg/dl Creatinine 1.51 H (0.6-1.2) mg/dl Est Cr Clr Drug Dosing Not Reportable Est GFR ( Amer) 37.4 ml/min Est GFR (Non-Af Amer) 32.3 ml/min BUN/Creatinine Ratio 68.9 H (10-20) Glucose 206 H (70-99(Fasting)) mg/dl Lactate (0.4-2.0) mmol/L Calcium 9.1 (8.5-10.1) mg/dl Magnesium 2.3 (1.7-2.4) mg/dl Total Bilirubin 0.5 (0.2-1.0) mg/dl AST 52 H (13-39) U/L ALT 64 H (7-52) U/L Alkaline Phosphatase 83 (34-104) U/L Total Creatine Kinase (26-192) U/L Troponin I High Sens (0-14) pg/ml C-Reactive Protein (0-0.5) mg/dl B-Natriuretic Peptide (0-100) pg/ml Total Protein 6.7 (6.0-8.3) gm/dl Albumin 3.5 (3.4-5.0) gm/dl Globulin 3.2 (2.5-4.0) gm/dl Albumin/Globulin Ratio 1.1 (0.9-2) Procalcitonin (0-0.5) ng/ml SARS-CoV-2, RNA, NAAT (NEGATIVE) 07/15/22 07/15/22 07/15/22 Range/Units 18:40 18:40 18:40 WBC (4.8-10.8) K/ul RBC (3.93-5.22) M/uL Hgb (12.0-16.0) g/dl Hct (34.1-44.9) % MCV (80.0-100.0) fL MCH (25.0-34.0) pg MCHC (32.0-36.0) g/dL RDW Std Deviation (36.4-46.3) fL RDW Coeff of Timothy (11.5-14.5) % Plt Count (130-400) K/uL MPV (9.4-12.3) fL Immature Gran % (Auto) % Neut % (Auto) % Lymph % (Auto) % [place] % (Auto) % Eos % (Auto) % Baso % (Auto) % Neut # (Auto) (1.4-6.5) K/uL Lymph # (Auto) (1.2-3.4) K/uL [place] # (Auto) (0.24-0.82) K/uL Eos # (Auto) (0-0.50) K/uL Baso # (Auto) (0-0.2) K/uL Immature Gran # (Auto) (0.00-0.02) K/uL Absolute Nucleated RBC (0-0) K/uL Nucleated RBC % (auto) % ESR (0-30) mm/hr PT (9.0-12.0) Seconds INR (0.9-1.1) APTT (21.0-31.0) Seconds PTT Ratio Sodium (136-145) mmol/L Potassium (3.5-5.1) mmol/L Chloride (98-107) mmol/L Carbon Dioxide (21-32) mmol/L Anion Gap (3-11) BUN (6-23) mg/dl Creatinine (0.6-1.2) mg/dl Est Cr Clr Drug Dosing Est GFR ( Amer) ml/min Est GFR (Non-Af Amer) ml/min BUN/Creatinine Ratio (10-20) Glucose (70-99(Fasting)) mg/dl Lactate (0.4-2.0) mmol/L Calcium (8.5-10.1) mg/dl Magnesium (1.7-2.4) mg/dl Total Bilirubin (0.2-1.0) mg/dl AST (13-39) U/L ALT (7-52) U/L Alkaline Phosphatase (34-104) U/L Total Creatine Kinase (26-192) U/L Troponin I High Sens 171.1 H* (0-14) pg/ml C-Reactive Protein 2.21 H (0-0.5) mg/dl B-Natriuretic Peptide (0-100) pg/ml Total Protein (6.0-8.3) gm/dl Albumin (3.4-5.0) gm/dl Globulin (2.5-4.0) gm/dl Albumin/Globulin Ratio (0.9-2) Procalcitonin 0.15 (0-0.5) ng/ml SARS-CoV-2, RNA, NAAT (NEGATIVE) 07/15/22 07/15/22 07/15/22 Range/Units 18:40 21:02 21:18 WBC (4.8-10.8) K/ul RBC (3.93-5.22) M/uL Hgb (12.0-16.0) g/dl Hct (34.1-44.9) % MCV (80.0-100.0) fL MCH (25.0-34.0) pg MCHC (32.0-36.0) g/dL RDW Std Deviation (36.4-46.3) fL RDW Coeff of Timothy (11.5-14.5) % Plt Count (130-400) K/uL MPV (9.4-12.3) fL Immature Gran % (Auto) % Neut % (Auto) % Lymph % (Auto) % [place] % (Auto) % Eos % (Auto) % Baso % (Auto) % Neut # (Auto) (1.4-6.5) K/uL Lymph # (Auto) (1.2-3.4) K/uL [place] # (Auto) (0.24-0.82) K/uL Eos # (Auto) (0-0.50) K/uL Baso # (Auto) (0-0.2) K/uL Immature Gran # (Auto) (0.00-0.02) K/uL Absolute Nucleated RBC (0-0) K/uL Nucleated RBC % (auto) % ESR 32 H (0-30) mm/hr PT (9.0-12.0) Seconds INR (0.9-1.1) APTT (21.0-31.0) Seconds PTT Ratio Sodium (136-145) mmol/L Potassium (3.5-5.1) mmol/L Chloride (98-107) mmol/L Carbon Dioxide (21-32) mmol/L Anion Gap (3-11) BUN (6-23) mg/dl Creatinine (0.6-1.2) mg/dl Est Cr Clr Drug Dosing Est GFR ( Amer) ml/min Est GFR (Non-Af Amer) ml/min BUN/Creatinine Ratio (10-20) Glucose (70-99(Fasting)) mg/dl Lactate 1.7 (0.4-2.0) mmol/L Calcium (8.5-10.1) mg/dl Magnesium (1.7-2.4) mg/dl Total Bilirubin (0.2-1.0) mg/dl AST (13-39) U/L ALT (7-52) U/L Alkaline Phosphatase (34-104) U/L Total Creatine Kinase (26-192) U/L Troponin I High Sens (0-14) pg/ml C-Reactive Protein (0-0.5) mg/dl B-Natriuretic Peptide 117 H (0-100) pg/ml Total Protein (6.0-8.3) gm/dl Albumin (3.4-5.0) gm/dl Globulin (2.5-4.0) gm/dl Albumin/Globulin Ratio (0.9-2) Procalcitonin (0-0.5) ng/ml SARS-CoV-2, RNA, NAAT (NEGATIVE) 07/15/22 07/15/22 Range/Units 23:36 Unknown WBC (4.8-10.8) K/ul RBC (3.93-5.22) M/uL Hgb (12.0-16.0) g/dl Hct (34.1-44.9) % MCV (80.0-100.0) fL MCH (25.0-34.0) pg MCHC (32.0-36.0) g/dL RDW Std Deviation (36.4-46.3) fL RDW Coeff of Timothy (11.5-14.5) % Plt Count (130-400) K/uL MPV (9.4-12.3) fL Immature Gran % (Auto) % Neut % (Auto) % Lymph % (Auto) % [place] % (Auto) % Eos % (Auto) % Baso % (Auto) % Neut # (Auto) (1.4-6.5) K/uL Lymph # (Auto) (1.2-3.4) K/uL [place] # (Auto) (0.24-0.82) K/uL Eos # (Auto) (0-0.50) K/uL Baso # (Auto) (0-0.2) K/uL Immature Gran # (Auto) (0.00-0.02) K/uL Absolute Nucleated RBC (0-0) K/uL Nucleated RBC % (auto) % ESR (0-30) mm/hr PT (9.0-12.0) Seconds INR (0.9-1.1) APTT (21.0-31.0) Seconds PTT Ratio Sodium 145 (136-145) mmol/L Potassium 4.1 (3.5-5.1) mmol/L Chloride 110 H (98-107) mmol/L Carbon Dioxide 24 (21-32) mmol/L Anion Gap 11 (3-11) BUN 105 H (6-23) mg/dl Creatinine 1.39 H (0.6-1.2) mg/dl Est Cr Clr Drug Dosing 25.5 Est GFR ( Amer) 41.4 ml/min Est GFR (Non-Af Amer) 35.7 ml/min BUN/Creatinine Ratio 75.5 H (10-20) Glucose 190 H (70-99(Fasting)) mg/dl Lactate (0.4-2.0) mmol/L Calcium 8.2 L (8.5-10.1) mg/dl Magnesium (1.7-2.4) mg/dl Total Bilirubin (0.2-1.0) mg/dl AST (13-39) U/L ALT (7-52) U/L Alkaline Phosphatase (34-104) U/L Total Creatine Kinase 157 (26-192) U/L Troponin I High Sens 141.6 H* (0-14) pg/ml C-Reactive Protein (0-0.5) mg/dl B-Natriuretic Peptide (0-100) pg/ml Total Protein (6.0-8.3) gm/dl Albumin (3.4-5.0) gm/dl Globulin (2.5-4.0) gm/dl Albumin/Globulin Ratio (0.9-2) Procalcitonin (0-0.5) ng/ml SARS-CoV-2, RNA, NAAT NEGATIVE (NEGATIVE) Administered Medications Discontinued Medications Cefepime HCl (Maxipime) 2,000 mg in 20 mls @ 5 mls/min IV NOW STA; Protocol Stop: 07/15/22 21:35 Last Admin: 07/15/22 22:32 Dose: 5 mls/min Documented By: AIDA Vancomycin HCl 1,000 mg/ (Sodium Chloride) 520 mls @ 200 mls/hr IV NOW ONE Stop: 07/16/22 00:21 Last Admin: 07/15/22 22:31 Dose: 200 mls/hr Documented By: AIDA Sodium Chloride (Nss) 500 mls @ 999 mls/hr IV .Q31M ONE Stop: 07/15/22 22:27 Last Infusion: 07/15/22 23:37 Dose: 0 mls/hr Documented By: Admin: 07/15/22 22:32 Dose: 999 mls/hr Documented By: AIDA Discharge Plan Visit Data Chief Complaint: Abnormal Labs/Diagnostic Testing Stated Complaint: ABNORMAL LABS ED Provider: Go Gann Discharge Problem: Cellulitis, toe, Diabetes mellitus, type 2, Lung cancer metastatic to brain, Weakness Patient Disposition: Being Evaluated by Hospitalist Forms Stand Alone Forms: My [facility] Prescriptions Prescriptions: No Action torsemide 20 mg tablet 40 mg PO QAM levothyroxine 25 mcg tablet 25 mcg PO DAILY lorazepam 0.5 mg tablet 0.5 mg PO Q8 PRN (Reason: Anxiety) omeprazole 20 mg capsule,delayed release(DR/EC) 20 mg PO DAILY gabapentin 100 mg capsule 100 mg PO HS insulin aspart U-100 [Novolog Flexpen U-100 Insulin] 100 unit/mL (3 mL) in sulin pen 4 unit subcut TIDM rosuvastatin 10 mg tablet 10 mg PO HS metronidazole 1 % gel 1 applic TOPICAL BID Rx Instructions: once to bid cholecalciferol (vitamin D3) [Vitamin D3] 25 mcg (1,000 unit) Tablet 25 mcg PO DAILY Prolia 60 mg/mL Syringe 60 mg SUBCUT .[id number] Tradjenta 5 mg tablet 5 mg PO QAM dexamethasone 4 mg Tablet 4 mg PO TID Qty: 0 0RF levetiracetam 1,000 mg tablet 1,000 mg PO AMHS lisinopril 20 mg tablet 20 mg PO QAM doxycycline hyclate 100 mg capsule 100 mg PO AMHS Rx Instructions: ordered 07/15/22 take for 7 days acetaminophen 325 mg Tablet 650 mg PO Q6 PRN (Reason: as directed) insulin glargine [Basaglar KwikPen U-100 Insulin] 100 unit/mL (3 mL) insulin pen 15 unit SUBCUT QAM mesalamine 1.2 gram tablet,delayed release (DR/EC) 2.4 g PO QAM Referrals Referrals: Danny Ibarra MD [Primary Care Provider] -
[2022-07-15] MEDS ORDERED: LACTATED RINGER'S 1,000 ML IV ONE (22:34)
[2022-07-16 00:11] LABS: BUN Creatinine Ratio 75.5 (10-20); Calcium 8.2 mg/dl (8.5-10.1); Creatinine Clr Calc Pharmacy 25.5 ml/min; Est GFR (African American) 41.4 ml/min; Est GFR (Non-African American) 35.7 ml/min; Potassium 4.1 mmol/L (3.5-5.1)
[2022-07-16 00:19] LABS: Troponin I High Sensitivity 141.6 pg/ml (0-14)
--- NOTE | 2022-07-16 00:48 | History & Physical Report ---
Date of Service July 16, 2022 Assessment & Plan (1) DVT (deep venous thrombosis): Plan: hx NSCLC status post surgery status post Keytruda with brain mets status post radiation on Decadron (Outpatient brain MRI done this month showed decrease in size of right parietal metastatic lesion with slightly increased edema possibly representing postradiation effect, slight interval increase in size of left temporal metastatic lesion, stable left old central gyrus lesion. Concern for focal leptomeningeal and dural involvement.) ARF secondary to illness Asymptomatic troponin elevation in the setting of kidney dysfunction Asymptomatic pyuria, patient not septic HTN, stable COPD, lung status at baseline hx CVA/PAD hyperlipidemia on statin Rx DM2 insulin requiring, suboptimal control as of recent hemoglobin A1c of 9.11 July 2022 seizure disorder stable on Keppra regimen multiple toe infection of 3 weeks duration on new doxycycline Rx No sepsis for now Rule out osteomyelitis past tobacco abuse. F Case discussed with Dr. Villeda (patient's [facility] biology department chair/oncologist) He recommends IV heparin for now and transitioning to Eliquis if tolerated by patient. Follow troponin, TTE if with progression Monitor creatinine response to IVF, hold lisinopril and home diuretic until creatinine back to baseline Continue doxycycline for diabetic toe infection Follow official x-ray results May need MRI to definitely rule out osteomyelitis if plain x-ray negative Podiatry consult Re: Diabetic toe infection Follow repeat CS, hold off on antibiotics for now for asymptomatic pyuria. Basal bolus insulin, ISS BG goal 1 10-1 40, carb count coverage DVT prophylaxis IV heparin Full code Patient sisters requesting updates from providers. Ms. Maki Smithubb, contact numbers [phone]. Raffi Massey, contact #[phone]. Text document was generated using [employer] voice recognition software. It may contain grammatical or spelling errors. Kindly contact undersigned for clarification of any documentation item in question. History of Present Illness Chief Complaint: Sent by doctor for leg issues Primary Care Provider: Danny Ibarra MD History obtained from patient and records. Medical history significant for HTN, COPD, CVA, PAD, hyperlipidemia, non-small cell lung cancer status post surgery status post Keytruda with brain mets on Decadron, DM2 insulin requiring, history Keytruda induced ulcerative colitis, seizure disorder as per records, multiple toe infection ongoing doxycycline Rx, past tobacco abuse. Last confinement March 2022 for increased intracranial pressure secondary to metastatic brain cancer with hemorrhage and vasogenic edema[place] [facility] [place] Dec[place] 4 times a day. Patient Keppra dose increased on discharge. Patient discharged to rehab facility. Patient seen by [employer] manager outpatient 6 weeks ago for diabetic nail care. Hammertoes noted on both feet. Topical antibiotic Rx prescribed for left lower extremity wound. 2 weeks ago, she was told by another car rental agency manager that she had 5 infected toes. No fever, no chills. 3 on 1 side and 2 on the other. Yellow drainage from the toes. Topical antibiotic ointment prescribed. Patient seen at urgent care center last week. Erythema and irritation noted on several toes and nailbeds without active drainage. Patient prescribed Keflex course for possible paronychia. Patient seen at PCPs office on follow-up yesterday. Patient complaining of toe pain with some yellow discharge. Toenail beds noted to be erythematous and irritated without discharge. Cool feet with weak pulses as per provider documentation. ER evaluation recommended by PCP to rule out osteomyelitis but patient declined initially. Patient prescribed doxycycline. Blood work requested by PCP. Outpatient Podiatry referral recommended. Serum creatinine noted to be 1.3. Outpatient ETHAN done at [facility] yesterday showed limited exam secondary to noncompressible arteries. Arterial lower extremity Doppler may be considered for further evaluation. Patient directed to ER for evaluation. IV Cefepime administered at the ER for possible UTI. Patient denies chest pain, unusual shortness of breath, headache, abdominal pain, diarrhea, dysuria symptoms. 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 Allergies Allergy/AdvReac Type Severity Reaction Status Date / Time baclofen AdvReac Mild felt funny Verified 07/15/22 23:33 pembrolizumab [From Keytruda] AdvReac Mild Diarrhea Verified 07/15/22 23:33 Home Medications Medication Instructions Recorded Confirmed Type cholecalciferol (vitamin D3) 25 25 mcg PO DAILY 04/04/22 07/15/22 History mcg (1,000 unit) tablet (Vitamin D3) denosumab 60 mg/mL subcutaneous 60 mg subcut .[id number] 04/04/22 07/15/22 History syringe (Prolia) gabapentin 100 mg capsule 100 mg PO HS 04/04/22 07/15/22 History insulin aspart U-100 100 unit/mL 4 unit subcut TIDM 04/04/22 07/15/22 History (3 mL) subcutaneous pen (Novolog Flexpen U-100 Insulin aspart) levothyroxine 25 mcg tablet 25 mcg PO DAILY 04/04/22 07/15/22 History linagliptin 5 mg tablet (Tradjenta) 5 mg PO QAM 04/04/22 07/15/22 History lorazepam 0.5 mg tablet 0.5 mg PO Q8 PRN Anxiety 04/04/22 07/15/22 History metronidazole 1 % topical gel 1 applic topical BID 04/04/22 07/15/22 History omeprazole 20 mg capsule,delayed 20 mg PO DAILY 04/04/22 07/15/22 History release rosuvastatin 10 mg tablet 10 mg PO HS 04/04/22 07/15/22 History torsemide 20 mg tablet 40 mg PO QAM 04/04/22 07/15/22 History dexamethasone 4 mg tablet 4 mg PO TID #0 tabs 04/09/22 07/15/22 Rx acetaminophen 325 mg tablet 650 mg PO Q6 PRN as directed 07/15/22 07/15/22 History doxycycline hyclate 100 mg capsule 100 mg PO AMHS 07/15/22 07/15/22 History insulin glargine 100 unit/mL (3 15 unit subcut QAM 07/15/22 07/15/22 History mL) subcutaneous pen (Basaglar KwikPen U-100 Insulin) levetiracetam 1,000 mg tablet 1,000 mg PO AMHS 07/15/22 07/15/22 History lisinopril 20 mg tablet 20 mg PO QAM 07/15/22 07/15/22 History mesalamine 1.2 gram tablet,delayed 2.4 g PO QAM 07/15/22 07/15/22 History release Past Med/Surg History Medical History Anemia chronic iron deficiency anemia in setting of ulcerative colitis (does receive routine iron infusions), under surveillance of [facility] hematology/GI. Arthritis Clumsiness Depression Diabetes mellitus, type 2 NIDDM Dizziness High cholesterol History of radiation therapy Hypertension Hypothyroidism Left knee DJD Left knee DJD Leg edema, left Metastasis to brain dx 09/2020. MRI imaging and radiation treatments x5. Metastatic cancer to brain Nocturnal hypoxia 2L/min NC HS Non-small cell cancer of right lung (~2016) s/p lower and middle lung lobe resection (2017), no chemo or xrt PVCs (premature ventricular contractions) Ulcerative colitis Inflectra treatments - follows with [facility] GI Surgical History History of breast biopsy History of colonoscopy History of lobectomy of lung Right VATS middle and lower lobectomy: 07/11/17: Grade 2 view, MAC#3, BANG History of repair of rotator cuff History of tonsillectomy History of tubal ligation S/P right rotator cuff repair Status post right knee replacement Family History Sister Family history of diabetes mellitus Mother Alzheimer disease Father Myocardial infarction Other Heart disease No family history of adverse response to anesthesia Social History Smoking Status: Former smoker Tobacco Type: Cigarettes Second Hand Exposure: No; Do You Dip or Chew Tobacco: No; Tobacco Cessation Education Requested by Patient: No Hx Alcohol Use: No Hx Substance Use: No Preferred Language: Kyrgyz Communication Ability: Effective Visual Impairment: No Limitations Food Science Technician Required: No Beliefs That Will Affect Care: None marital status: / Current Living Situation: Alone Current Living Situation Comment: [facility] How many Children do You have: 0 Feels Safe at Home: Yes Safety Concerns: Feels Safe At This Time Assistive Devices: Oxygen - at Night and Walker Assistive Devices Comment: Uses walker at baseline, wears 2L HS Review of Systems Review of Systems: As per HPI, all other systems reviewed and negative Physical Exam Physical Exam: GENERAL: Comfortable, slightly anxious, chronically ill, no respiratory distress SKIN: Normal color, warm HEENT: Pale palpebral conjunctivae, no ptosis, dry buccal mucosa NECK : Supple, no tenderness CHEST : Decreased breath sounds, occasional expiratory wheezes, no tenderness HEART : RRR, no obvious murmurs ABDOMEN: Some distention, nontender EXTREMITIES : Cool feet, bilateral LE venous stasis and bruising noted, erythematous toes, some toes covered by bandage, no gross drainage NEUROLOGIC : Coherent, no facial asymmetry, slightly hard of hearing, gait and stance not assessed Results & Data Results & Data ([facility]) Vital Signs (Past 12 Hours) Vital Signs Temp Pulse Resp BP Pulse Ox O2 Del Method 07/15/22 23:30 63 13 07/15/22 22:30 59 L 15 94 07/15/22 22:00 61 15 106/68 90 07/15/22 21:31 76 25 H 91 07/15/22 17:13 36.4 C L 76 18 84/53 L 96 Room Air Laboratory Results Laboratory Results WBC 12.11 K/ul (4.8-10.8) H 07/15/22 18:40 RBC 4.84 M/uL (3.93-5.22) 07/15/22 18:40 Hgb 14.4 g/dl (12.0-16.0) 07/15/22 18:40 Hct 42.4 % (34.1-44.9) 07/15/22 18:40 MCV 87.6 fL (80.0-100.0) 07/15/22 18:40 MCH 29.8 pg (25.0-34.0) 07/15/22 18:40 MCHC 34.0 g/dL (32.0-36.0) 07/15/22 18:40 RDW Std Deviation 55.8 fL (36.4-46.3) H 07/15/22 18:40 RDW Coeff of Timothy 18.3 % (11.5-14.5) H 07/15/22 18:40 Plt Count 194 K/uL (130-400) 07/15/22 18:40 MPV 10.9 fL (9.4-12.3) 07/15/22 18:40 Immature Gran % (Auto) 5.3 % 07/15/22 18:40 Neut % (Auto) 89.5 % 07/15/22 18:40 Lymph % (Auto) 2.1 % 07/15/22 18:40 Mcmullen % (Auto) 1.7 % 07/15/22 18:40 Eos % (Auto) 0.8 % 07/15/22 18:40 Baso % (Auto) 0.6 % 07/15/22 18:40 Neut # (Auto) 10.84 K/uL (1.4-6.5) H 07/15/22 18:40 Lymph # (Auto) 0.25 K/uL (1.2-3.4) L 07/15/22 18:40 Mcmullen # (Auto) 0.21 K/uL (0.24-0.82) L 07/15/22 18:40 Eos # (Auto) 0.10 K/uL (0-0.50) 07/15/22 18:40 Baso # (Auto) 0.07 K/uL (0-0.2) 07/15/22 18:40 Immature Gran # (Auto) 0.64 K/uL (0.00-0.02) H 07/15/22 18:40 Absolute Nucleated RBC 0.20 K/uL (0-0) H 07/15/22 18:40 Nucleated RBC % (auto) 1.7 % 07/15/22 18:40 ESR 32 mm/hr (0-30) H 07/15/22 18:40 PT 10.2 Seconds (9.0-12.0) 07/15/22 18:40 INR 1.0 (0.9-1.1) 07/15/22 18:40 APTT < 20.0 Seconds (21.0-31.0) L 07/15/22 18:40 PTT Ratio 0.7 07/15/22 18:40 Sodium 145 mmol/L (136-145) 07/15/22 23:36 Potassium 4.1 mmol/L (3.5-5.1) 07/15/22 23:36 Chloride 110 mmol/L (98-107) H 07/15/22 23:36 Carbon Dioxide 24 mmol/L (21-32) 07/15/22 23:36 Anion Gap 11 (3-11) 07/15/22 23:36 BUN 105 mg/dl (6-23) H 07/15/22 23:36 Creatinine 1.39 mg/dl (0.6-1.2) H 07/15/22 23:36 Est Cr Clr Drug Dosing 25.5 ml/min 07/15/22 23:36 Est GFR ( Amer) 41.4 ml/min 07/15/22 23:36 Est GFR (Non-Af Amer) 35.7 ml/min 07/15/22 23:36 BUN/Creatinine Ratio 75.5 (10-20) H 07/15/22 23:36 Glucose 190 mg/dl (70-99(Fasting)) H 07/15/22 23:36 Lactate 1.7 mmol/L (0.4-2.0) 07/15/22 21:02 Calcium 8.2 mg/dl (8.5-10.1) L 07/15/22 23:36 Magnesium 2.3 mg/dl (1.7-2.4) 07/15/22 18:40 Total Bilirubin 0.5 mg/dl (0.2-1.0) 07/15/22 18:40 AST 52 U/L (13-39) H 07/15/22 18:40 ALT 64 U/L (7-52) H 07/15/22 18:40 Alkaline Phosphatase 83 U/L (34-104) 07/15/22 18:40 Total Creatine Kinase 157 U/L (26-192) 07/15/22 23:36 Troponin I High Sens 141.6 pg/ml (0-14) H* 07/15/22 23:36 C-Reactive Protein 2.21 mg/dl (0-0.5) H 07/15/22 18:40 B-Natriuretic Peptide 117 pg/ml (0-100) H 07/15/22 21:18 Total Protein 6.7 gm/dl (6.0-8.3) 07/15/22 18:40 Albumin 3.5 gm/dl (3.4-5.0) 07/15/22 18:40 Globulin 3.2 gm/dl (2.5-4.0) 07/15/22 18:40 Albumin/Globulin Ratio 1.1 (0.9-2) 07/15/22 18:40 Procalcitonin 0.15 ng/ml (0-0.5) 07/15/22 18:40 SARS-CoV-2, RNA, NAAT NEGATIVE (NEGATIVE) 07/15/22 Unknown Diagnostic Findings Arterial Dopplers initial read: RIGHT: Prominent atherosclerotic changes throughout the arterial systemof the right lower extremity. [id number]%luminal stenosis involving the proximal right superficial femoral artery. Monophasicwaveforms in the popliteal arteryand trifurcation vessels. The posterior tibial, distal peroneal and dorsalis pedis arteries are patent with monophasicwaveforms. LEFT: Prominent atherosclerotic calcification throughout the arterial systemof the left lower extremity. 30-49%luminal stenosis involving the proximal left superficial femoral artery, slightlylimited by shadowing calcified plaque burden. Monophasicwaveforms in the popliteal arteryand trifurcation vessels. The distal posterior tibial, peroneal and dorsalis pedis arteries are patent with monophasicwaveforms. INCIDENTAL: Venous deep vein thrombosis involving one of 2 popliteal veins on the right noted. The right peroneal veins are also occluded at the calf. Chest x-ray per my interpretation atelectasis EKG as per my interpretation : Rate 80, NSR, normal axis, short [place], delta wave, T wave abnormalities inferior leads, PVCs Code Status & VTE Plan VTE Prophylaxis Plan VTE Prophylaxis will be ordered: Yes
[2022-07-16 01:11] LABS: Base Excess VBG 0.5 mEq/L; HCO3 VBG 27 mmol/L; Oxygen Saturation VBG < 60.0 %; PCO2 VBG 50 mmHg (38-50); PO2 VBG 25 mmHg; pH VBG 7.34 (7.36-7.41)
[2022-07-16 01:40] LABS: Appearance Urine Clear (Clear); Bacteria Urine Automated Negative (Negative); Bilirubin Urine Negative (Negative); Blood Urine Negative (Negative); Color Urine Yellow; Epithelial Cell Urine Auto 20-30 /lpf (0-5); Glucose Urine UA Negative (Negative); Ketones Urine Negative (Negative); Leukocyte Esterase Urine 3+ (Negative); Nitrite Urine Negative (Negative); Protein Urine Trace (Negative); RBC Urine Automated 0-4 /hpf (0-4); Specific Gravity Urine 1.012 (1.000-1.030); Urobilinogen Urine Negative (Negative); WBC Urine Automated >30 /hpf (0-5)
[2022-07-16] MEDS ORDERED: ALBUT/IPRATROP 3MG/0.5MG NEB 3 ML VIAL NEB STA (01:53)
[2022-07-16] MEDS ORDERED: GLUCOSE 40% GEL 15 GM TUBE PO PRN (04:13)
[2022-07-16] MEDS ORDERED: GLUCOSE 10 TAB/TUBE PO PRN (04:13)
[2022-07-16] MEDS ORDERED: DEXTROSE 50% 50 ML SYRINGE IV PRN (04:13)
[2022-07-16] MEDS ORDERED: GLUCAGON FOR INJ 1 MG VIAL SQ PRN (04:13)
[2022-07-16] MEDS ORDERED: oxyCODONE HCL IR 5 MG TAB (IMMEDIATE RELEASE) PO PRN (04:13)
[2022-07-16] MEDS ORDERED: PROMETHAZINE HCL 6.25 MG in SODIUM CHLORIDE 0.9% 50 ML IV PRN (04:13)
[2022-07-16] MEDS ORDERED: LORazepam 0.5 MG TAB PO PRN (04:13)
[2022-07-16] MEDS: INSULIN ASPART PER UNIT SC SCH ×5 (04:31→20:38)
[2022-07-16] MEDS: levETIRAcetam 500 MG TAB PO SCH ×3 (05:33→20:39)
[2022-07-16] MEDS: LEVOTHYROXINE SODIUM 25 MCG TABLET PO SCH (05:34)
[2022-07-16] MEDS ORDERED: Heparin IV Adult Wt-Based Low-Dose *NO* Bolus Protocol IV ONE (06:42)
--- NOTE | 2022-07-16 07:34 | Ultrasound Report ---
BILATERAL LOWER EXTREMITY ARTERIAL DOPPLER ULTRASOUND CLINICAL HISTORY: Abnormal ABIs. Toe infection. COMPARISON STUDY: Ankle to brachial indices July 15, 2022. TECHNIQUE: Color and duplex Doppler sonography of the arterial systems of both lower extremity was pe rformed. FINDINGS: Incidental note is made of deep venous thrombus within the right popliteal and peroneal vei ns. Extensive atherosclerotic plaque is noted within the lower extremities. Triphasic flow within the rig ht common femoral artery is present. Elevated peak systolic velocity of 230 cm second within the prox imal right superficial femoral artery is noted. This suggests a moderate to severe stenosis. There is monophasic flow within the mid to distal right superficial femoral artery as well as the right popli teal, posterior tibial, peroneal, anterior tibial and dorsalis pedis vessels. Velocities are diminish ed within these vessels. Biphasic flow within the left common femoral artery is present. There is an elevated peak systolic ve locity 191 cm a second within the proximal left superficial femoral artery which suggests a moderate grade stenosis. Monophasic flow is noted within the left popliteal artery as well as the left calf ve ssels. Velocities within these vessels are diminished. Waveforms are dampened. IMPRESSION: 1. Extensive atherosclerotic plaque within the lower extremities. Hemodynamically significant stenose s within the bilateral superficial femoral arteries, more severe on the right. 2. Dampened, monophasic flow within the bilateral popliteal arteries and calf vessels, as detailed ab ove. 3. Deep venous thrombus within the right popliteal and peroneal veins. ACT 112: Negative or not required by law. Electronically signed by: Jordan Conner M.D. 07/16/2022 7:31 AM
[2022-07-16] MEDS: HEPARIN SODIUM/DEXTROSE 25,000 UNITS/500 ML BAG IV SCH (07:58)
[2022-07-16 08:12] LABS: Hematocrit (blood only) 36.1 % (34.1-44.9); Hemoglobin 12.3 g/dl (12.0-16.0); Mean Corpuscular Hgb Conc 34.1 g/dL (32.0-36.0); Mean Platelet Volume 10.8 fL (9.4-12.3); Nucleated RBC # (auto) 0.07 K/uL (0-0); Nucleated RBC % (auto) 0.7 %; Platelet Count 153 K/uL (130-400); RDW Standard Deviation 55.9 fL (36.4-46.3); White Blood Count 9.76 K/ul (4.8-10.8)
[2022-07-16 08:29] LABS: Basophils # (auto) 0.04 K/uL (0-0.2); Basophils % (auto) 0.4 %; Eosinophils # (auto) 0.03 K/uL (0-0.50); Eosinophils % (auto) 0.3 %; Immature Granulocytes # (auto) 0.45 K/uL (0.00-0.02); Immature Granulocytes % (auto) 4.6 %; Lymphocytes # (auto) 0.24 K/uL (1.2-3.4); Lymphocytes % (auto) 2.5 %; Monocytes # (auto) 0.12 K/uL (0.24-0.82); Monocytes % (auto) 1.2 %; Neutrophils # (auto) 8.88 K/uL (1.4-6.5)
[2022-07-16 08:31] LABS: Partial Thromboplastin Ratio 0.8; Prothrombin Time 10.7 Seconds (9.0-12.0)
[2022-07-16 09:00] LABS: BUN Creatinine Ratio 83.2 (10-20); Calcium 7.8 mg/dl (8.5-10.1); Creatinine Clr Calc Pharmacy 32.4 ml/min; Est GFR (African American) 56.8 ml/min; Potassium 3.7 mmol/L (3.5-5.1)
[2022-07-16] MEDS: DOXYCYCLINE HYCLATE 100 MG CAP PO SCH ×2 (09:16→20:40)
[2022-07-16] MEDS: PANTOprazole 40 MG TAB PO SCH (09:16)
[2022-07-16] MEDS: dexAMETHasone 4 MG TAB PO SCH ×3 (09:16→20:39)
--- NOTE | 2022-07-16 10:34 | XRay Report ---
XR chest 1V portable CLINICAL HISTORY: Swelling. COMPARISON STUDY: Chest radiograph and chest CT April 04, 2022. FINDINGS: No pneumothorax is present. A trace right pleural effusion is unchanged with associated rig ht basilar opacity. Left basilar opacity favors atelectasis. No consolidation to suggest pneumonia. T here is no evidence for pulmonary edema. Postoperative findings within the right shoulder are inciden tally noted. IMPRESSION: No acute cardiopulmonary findings. No significant change in appearance of the chest. ACT 112: Negative or not required by law. Electronically signed by: Jordan Conner M.D. 07/16/2022 10:32 AM
--- NOTE | 2022-07-16 10:42 | XRay Report ---
XR foot RT 2V CLINICAL HISTORY: toe pain, infection COMPARISON: None FINDINGS: Ankle and foot soft tissue swelling is noted. No acute fracture is identified. There is no evidence for acute osteomyelitis although evaluation is mildly compromised given chronic deformity o f the toes. Moderate osteoarthritis is noted within multiple articulations of the right foot. IMPRESSION: No acute fracture. No radiographic evidence for acute osteomyelitis. ACT 112: Negative or not required by law. Electronically signed by: Jordan Conner M.D. 07/16/2022 10:41 AM
--- NOTE | 2022-07-16 10:43 | XRay Report ---
XR foot LT 2V CLINICAL HISTORY: toe pain, infection COMPARISON: None FINDINGS: No acute fracture is identified. Dorsal soft tissue swelling is noted. There is posterior calcaneal spurring. No evidence for acute osteomyelitis by radiography. Mild osteoarthritis is noted within multiple articulations. IMPRESSION: No acute fracture. No radiographic evidence for acute osteomyelitis within the left foot. ACT 112: Negative or not required by law. Electronically signed by: Jordan Conner M.D. 07/16/2022 10:41 AM
[2022-07-16] MEDS: ACETAMINOPHEN 325 MG TAB PO PRN (14:49)
[2022-07-16 15:21] LABS: Partial Thromboplastin Ratio 2.1
[2022-07-16 15:25] LABS: Partial Thromboplastin Time 58.4 Seconds (21.0-31.0)
--- NOTE | 2022-07-16 16:20 | Orthopedic Consultation ---
Date of Consultation July 16, 2022 Assessment & Plan (1) Ulcer of right leg: Patient seen, evaluated, and treated. Right leg ulcer cleansed with Betadine followed by normal saline. Application of foam dressing to right leg ulcer. Patient to continue with lower extremity compression. Socks applied over foam dressing. Appreciate wound care consult for leg ulcer dressing changes. Thank you for allowing me to participate in the care of this Patient. (2) Cellulitis, toe: No open wounds noted on physical exam. History of Present Illness Attending Physician: Franki Majano MD History of Present Illness Patient is a pleasant 82 year old female seen at bedside. Patient past medical history includes type II diabetes, HTN, ulcerative colitis, COPD, osteoporosis, NSCLC with brain mets and hx of intracranial hemorrhage in 03/2022. Patient seen today for right leg ulcers and possible toe infection. Patient states she was seen at [facility] about 3 weeks ago and has developed an infection in BL toes since that time. Patient states she was started on antibiotics by podiatry, but states no improvement, so came to [facility]. Allergies Allergy/AdvReac Type Severity Reaction Status Date / Time baclofen AdvReac Mild felt funny Verified 07/15/22 23:33 pembrolizumab [From Keytruda] AdvReac Mild Diarrhea Verified 07/15/22 23:33 Home Medications Medication Instructions Recorded Confirmed Type cholecalciferol (vitamin D3) 25 25 mcg PO DAILY 04/04/22 07/15/22 History mcg (1,000 unit) tablet (Vitamin D3) denosumab 60 mg/mL subcutaneous 60 mg subcut .[id number] 04/04/22 07/15/22 History syringe (Prolia) gabapentin 100 mg capsule 100 mg PO HS 04/04/22 07/15/22 History insulin aspart U-100 100 unit/mL 4 unit subcut TIDM 04/04/22 07/15/22 History (3 mL) subcutaneous pen (Novolog Flexpen U-100 Insulin aspart) levothyroxine 25 mcg tablet 25 mcg PO DAILY 04/04/22 07/15/22 History linagliptin 5 mg tablet (Tradjenta) 5 mg PO QAM 04/04/22 07/15/22 History lorazepam 0.5 mg tablet 0.5 mg PO Q8 PRN Anxiety 04/04/22 07/15/22 History metronidazole 1 % topical gel 1 applic topical BID 04/04/22 07/15/22 History omeprazole 20 mg capsule,delayed 20 mg PO DAILY 04/04/22 07/15/22 History release rosuvastatin 10 mg tablet 10 mg PO HS 04/04/22 07/15/22 History torsemide 20 mg tablet 40 mg PO QAM 04/04/22 07/15/22 History dexamethasone 4 mg tablet 4 mg PO TID #0 tabs 04/09/22 07/15/22 Rx acetaminophen 325 mg tablet 650 mg PO Q6 PRN as directed 07/15/22 07/15/22 History doxycycline hyclate 100 mg capsule 100 mg PO AMHS 07/15/22 07/15/22 History insulin glargine 100 unit/mL (3 15 unit subcut QAM 07/15/22 07/15/22 History mL) subcutaneous pen (Basaglar KwikPen U-100 Insulin) levetiracetam 1,000 mg tablet 1,000 mg PO AMHS 07/15/22 07/15/22 History lisinopril 20 mg tablet 20 mg PO QAM 07/15/22 07/15/22 History mesalamine 1.2 gram tablet,delayed 2.4 g PO QAM 07/15/22 07/15/22 History release Patient History Medical History Anemia chronic iron deficiency anemia in setting of ulcerative colitis (does receive routine iron infusions), under surveillance of [facility] hematology/GI. Arthritis Clumsiness Depression Diabetes mellitus, type 2 NIDDM Dizziness High cholesterol History of radiation therapy Hypertension Hypothyroidism Left knee DJD Left knee DJD Leg edema, left Metastasis to brain dx 09/2020. MRI imaging and radiation treatments x5. Metastatic cancer to brain Nocturnal hypoxia 2L/min NC HS Non-small cell cancer of right lung (~2016) s/p lower and middle lung lobe resection (2017), no chemo or xrt PVCs (premature ventricular contractions) Ulcerative colitis Inflectra treatments - follows with [facility] GI Surgical History History of breast biopsy History of colonoscopy History of lobectomy of lung Right VATS middle and lower lobectomy: 07/11/17: Grade 2 view, MAC#3, BANG History of repair of rotator cuff History of tonsillectomy History of tubal ligation S/P right rotator cuff repair Status post right knee replacement Family History Sister Family history of diabetes mellitus Mother Alzheimer disease Father Myocardial infarction Other Heart disease No family history of adverse response to anesthesia Social History Smoking Status: Former smoker Tobacco Type: Cigarettes Second Hand Exposure: No; Do You Dip or Chew Tobacco: No; Tobacco Cessation Education Requested by Patient: No Hx Alcohol Use: No Hx Substance Use: No Preferred Language: Slovak Communication Ability: Effective Visual Impairment: No Limitations Gas Welder Required: No Beliefs That Will Affect Care: None marital status: / Current Living Situation: Alone Current Living Situation Comment: [facility] How many Children do You have: 0 Feels Safe at Home: Yes Safety Concerns: Feels Safe At This Time Assistive Devices: Oxygen - at Night and Walker Assistive Devices Comment: Uses walker at baseline, wears 2L HS Review of Systems Review of Systems: All systems reviewed & are unremarkable except as noted in HPI & below Physical Exam Constitutional: WD/WN, vitals as above + frail appearing and cooperative; not in distress Neck: trachea midline Respiratory: normal respiratory effort; no respiratory distress Auscultation: lungs clear to auscultation bilaterally and + diminished lung sounds Cardiovascular: Rate/Rhythm: regular rate and regular rhythm Vessels: posterior tibial pulses present (excellent doppler signals BLE), dorsalis pedis pulses present (excellent doppler signals BLE) and radial pulses present; + abnormal peripheral pulses Extremities: normal capillary refill and + edema (BLE) Musculoskeletal: no cyanosis or clubbing, extremities motor strength 5/5 (toes nontender, no discoloration) Skin: Right leg full thickness skin ulcers into subcutaneous tissue. There is no erythema. Minimal serous drainage. Neurologic: Epicritic sensation intact. Psychiatric: Orientation: alert and oriented x 3 Results & Data ([facility]) Vital Signs (Past 12 Hours) Vital Signs Temp Pulse Resp BP Pulse Ox O2 Del Method O2 Flow Rate 07/16/22 15:29 36.4 C L 81 16 106/58 L 95 Nasal Cannula 2 07/16/22 11:43 36.3 C L 74 18 134/82 94 Nasal Cannula 2 07/16/22 07:52 36.4 C L 51 L 16 125/69 90 Room Air
[2022-07-16] MEDS: LIDOCAINE 5% 1 PATCH TD SCH (16:33)
--- NOTE | 2022-07-16 16:34 | Electrocardiogram Report ---
Test Reason : Blood Pressure : / mmHG Vent. Rate : 082 BPM Atrial Rate : 082 BPM P-R Int : 090 ms QRS Dur : 166 ms QT Int : 352 ms P-R-T Axes : 044 062 078 degrees QTc Int : 411 ms Poor data quality, interpretation may be adversely affected Sinus rhythm with occasional Premature ventricular complexes Non-specific intra-ventricular conduction block Abnormal ECG When compared with ECG of 04-APR-2022 17:58, Significant changes have occurred Confirmed by Andres Ruiz ([id number]) on 07/16/2022 4:34:34 PM Referred By: REFERRED SELF Confirmed By:Andres Ruiz
--- NOTE | 2022-07-16 16:57 | XRay Report ---
XR lumbar spine 2-3V CLINICAL HISTORY: Low back pain. COMPARISON STUDY: None. FINDINGS: Mild dextroscoliosis of the lumbar spine which may be positional. There are old, healed rig ht-sided rib fractures. The sacrum is intact. Moderate to large amount of well-formed stool seen thro ughout the colon. Moderate to severe facet degenerative changes within the lumbar spine most pronounc ed at the L5-S1 level. There are severe disc space narrowing at L3-L4. There is moderate disc space n arrowing at L1-L2 and L2-L3, and L4-5. There are endplate osteophytes seen throughout the lumbar spin e. No acute fracture or subluxation. IMPRESSION: 1. No fracture or subluxation within the lumbar spine. 2. Degenerative changes as described above. 3. Mild dextroscoliosis which could be positional. ACT 112: Negative or not required by law. Electronically signed by: James Villarreal M.D. 07/16/2022 4:55 PM
--- NOTE | 2022-07-16 18:17 | Communication Note ---
Date of Service: July 16, 2022 Patient seen and examined at bedside Heparin drip in progress Awake and alert, oriented x3, answers questions appropriately Comfortable States she feels improved compared to yesterday Has mild discomfort over her toes Denies headache, dizziness, chest pain, shortness of breath No fevers or chills All labs noted and reviewed Clear process bilaterally, no crackles or wheezing Normal rate regular rhythm Abdomen soft nontender Bilateral feet: Positive mild edema, cool to touch, mild tenderness Bilateral toes, some bluish discoloration on several of the toes, No bleeding or discharge Right popliteal, saphenous vein DVT In the setting of metastatic lung cancer --On heparin drip, transition to Eliquis if patient continues to tolerate overnight Discussed with Dr. Sibley with Dr. Yuriy Villeda, patient's oncologist last night Bilateral toe infection In the setting of femoral artery stenosis bilateral --Chest x-ray no osteomyelitis -- Hadoop Java Developer consulted, continue doxycycline -- Neurosurgery consulted Acute renal failure --Resolved DC IV fluids Other diagnoses and plan of care per Dr. Sibley's notes Franki Majano MD
[2022-07-16] MEDS: LANTUS PER UNIT CHARGE SQ SCH (20:38)
[2022-07-16] MEDS: GABAPENTIN 100 MG CAP PO SCH (20:40)
[2022-07-17] MEDS: LEVOTHYROXINE SODIUM 25 MCG TABLET PO SCH (05:13)
[2022-07-17] MEDS: INSULIN ASPART PER UNIT SC SCH ×4 (09:16→20:34)
[2022-07-17] MEDS: dexAMETHasone 4 MG TAB PO SCH ×3 (09:21→20:35)
[2022-07-17] MEDS: DOXYCYCLINE HYCLATE 100 MG CAP PO SCH ×2 (09:21→20:36)
[2022-07-17] MEDS: PANTOprazole 40 MG TAB PO SCH (09:21)
[2022-07-17] MEDS: LIDOCAINE 5% 1 PATCH TD SCH (09:22)
[2022-07-17] MEDS: levETIRAcetam 500 MG TAB PO SCH ×2 (09:22→20:36)
[2022-07-17 09:28] LABS: Partial Thromboplastin Ratio > 5.1
[2022-07-17 10:15] LABS: Partial Thromboplastin Time > 139.0 Seconds (21.0-31.0)
[2022-07-17 12:13] LABS: Partial Thromboplastin Ratio 3.1
--- NOTE | 2022-07-17 12:41 | Consultation ---
Date of Consultation July 17, 2022 Assessment & Plan (1) Peripheral arterial disease: Pt with metastatic NSCLC and moderate BLE arterial disease. She is asymptomatic from this. Her toes are well-perfused and she has excellent doppler signals in her feet. No wounds or ulcerations. No claudication or rest pain. She was also admitted with SASHA, so use of contrast dye should be minimized. No indications for revascularization at this time. (2) DVT (deep venous thrombosis): Pt with acute DVT and NSCLC with brain mets and previous intracranial hemorrhage. Currently on heparin drip. Would consider IVC filter insertion if AC is contraindicated. Please call if needed. History of Present Illness Reason for Consultation: PAD Attending Physician: Javier Saldaña MD History of Present Illness 82 yo f with hx of DMII, HTN, ulcerative colitis, COPD, osteoporosis, NSCLC with brain mets and hx of intracranial hemorrhage in 03/2022, seen in consultation today for PAD noted on recent arterial US. Pt states she was seen at [facility] about 3 weeks ago and has developed an infection in BL toes since that time. Pt states she has not been ambulating for 3 weeks d/t toe pain. None prior to this. SHe was started on abx by podiatry, but states no improvement, so came to [facility]. Pt states no pain in toes at present. Prior to this, she ambulated in her apartment with a walker. Denies open wounds, claudication, rest pain, CAMP, fever, cehst pain, SOB, abd pain, N/V, other complaints. Arterial US demonstrates moderate PAD in BLE, but maintains 3 vessel runoff BLE. Also incidentally noted RLE DVT. Allergies Allergy/AdvReac Type Severity Reaction Status Date / Time baclofen AdvReac Mild felt funny Verified 07/15/22 23:33 pembrolizumab [From Keytruda] AdvReac Mild Diarrhea Verified 07/15/22 23:33 Home Medications Medication Instructions Recorded Confirmed Type cholecalciferol (vitamin D3) 25 25 mcg PO DAILY 04/04/22 07/15/22 History mcg (1,000 unit) tablet (Vitamin D3) denosumab 60 mg/mL subcutaneous 60 mg subcut .[id number] 04/04/22 07/15/22 History syringe (Prolia) gabapentin 100 mg capsule 100 mg PO HS 04/04/22 07/15/22 History insulin aspart U-100 100 unit/mL 4 unit subcut TIDM 04/04/22 07/15/22 History (3 mL) subcutaneous pen (Novolog Flexpen U-100 Insulin aspart) levothyroxine 25 mcg tablet 25 mcg PO DAILY 04/04/22 07/15/22 History linagliptin 5 mg tablet (Tradjenta) 5 mg PO QAM 04/04/22 07/15/22 History lorazepam 0.5 mg tablet 0.5 mg PO Q8 PRN Anxiety 04/04/22 07/15/22 History metronidazole 1 % topical gel 1 applic topical BID 04/04/22 07/15/22 History omeprazole 20 mg capsule,delayed 20 mg PO DAILY 04/04/22 07/15/22 History release rosuvastatin 10 mg tablet 10 mg PO HS 04/04/22 07/15/22 History torsemide 20 mg tablet 40 mg PO QAM 04/04/22 07/15/22 History dexamethasone 4 mg tablet 4 mg PO TID #0 tabs 04/09/22 07/15/22 Rx acetaminophen 325 mg tablet 650 mg PO Q6 PRN as directed 07/15/22 07/15/22 History doxycycline hyclate 100 mg capsule 100 mg PO AMHS 07/15/22 07/15/22 History insulin glargine 100 unit/mL (3 15 unit subcut QAM 07/15/22 07/15/22 History mL) subcutaneous pen (Basaglar KwikPen U-100 Insulin) levetiracetam 1,000 mg tablet 1,000 mg PO AMHS 07/15/22 07/15/22 History lisinopril 20 mg tablet 20 mg PO QAM 07/15/22 07/15/22 History mesalamine 1.2 gram tablet,delayed 2.4 g PO QAM 07/15/22 07/15/22 History release Patient History Medical History Anemia chronic iron deficiency anemia in setting of ulcerative colitis (does receive routine iron infusions), under surveillance of [facility] hematology/GI. Arthritis Clumsiness Depression Diabetes mellitus, type 2 NIDDM Dizziness High cholesterol History of radiation therapy Hypertension Hypothyroidism Left knee DJD Left knee DJD Leg edema, left Metastasis to brain dx 09/2020. MRI imaging and radiation treatments x5. Metastatic cancer to brain Nocturnal hypoxia 2L/min NC HS Non-small cell cancer of right lung (~2016) s/p lower and middle lung lobe resection (2017), no chemo or xrt PVCs (premature ventricular contractions) Ulcerative colitis Inflectra treatments - follows with [facility] GI Surgical History History of breast biopsy History of colonoscopy History of lobectomy of lung Right VATS middle and lower lobectomy: 07/11/17: Grade 2 view, MAC#3, BANG History of repair of rotator cuff History of tonsillectomy History of tubal ligation S/P right rotator cuff repair Status post right knee replacement Family History Sister Family history of diabetes mellitus Mother Alzheimer disease Father Myocardial infarction Other Heart disease No family history of adverse response to anesthesia Social History Smoking Status: Former smoker Tobacco Type: Cigarettes Second Hand Exposure: No; Do You Dip or Chew Tobacco: No; Tobacco Cessation Education Requested by Patient: No Hx Alcohol Use: No Hx Substance Use: No Preferred Language: Occitan Communication Ability: Effective Visual Impairment: No Limitations Tree Tapping Laborer Required: No Beliefs That Will Affect Care: None marital status: / Current Living Situation: Alone Current Living Situation Comment: [facility] How many Children do You have: 0 Feels Safe at Home: Yes Safety Concerns: Feels Safe At This Time Assistive Devices: Oxygen - at Night and Walker Assistive Devices Comment: Uses walker at baseline, wears 2L HS Review of Systems Review of Systems: All systems reviewed & are unremarkable except as noted in HPI & below Physical Exam Constitutional: WD/WN, vitals as above + frail appearing and cooperative; not in distress Neck: trachea midline Respiratory: normal respiratory effort; no respiratory distress Auscultation: lungs clear to auscultation bilaterally and + diminished lung sounds Cardiovascular: Rate/Rhythm: regular rate and regular rhythm Vessels: posterior tibial pulses present (excellent doppler signals BLE), dorsalis pedis pulses present (excellent doppler signals BLE) and radial pulses present; + abnormal peripheral pulses Extremities: normal capillary refill and + edema (BLE) Gastrointestinal (Abdomen): Inspection/Auscultation: abdomen normal to i nspection and normal bowel sounds Percussion/Palpation: abdomen soft; abdomen nontender Musculoskeletal: no cyanosis or clubbing, extremities motor strength 5/5 (toes nontender, no discoloration) Skin: no rashes, warm and dry Neurologic: moves all extremities and awake; no focal motor deficits and not confused Results & Data ([facility]) Vital Signs (Past 12 Hours) Vital Signs Temp Pulse Resp BP Pulse Ox O2 Del Method O2 Flow Rate 07/17/22 07:15 Nasal Cannula 2 07/17/22 07:57 36.3 C L 60 18 122/70 98 Nasal Cannula 2
[2022-07-17 13:19] LABS: Partial Thromboplastin Ratio 2.2
[2022-07-17 13:23] LABS: Partial Thromboplastin Time 60.7 Seconds (21.0-31.0)
--- NOTE | 2022-07-17 14:29 | Hospitalist Progress Note ---
Date of Service July 17, 2022 Assessment & Plan (1) DVT (deep venous thrombosis): Plan: hx NSCLC status post surgery status post Keytruda with brain mets status post radiation on Decadron (Outpatient brain MRI done this month showed decrease in size of right parietal metastatic lesion with slightly increased edema possibly representing postradiation effect, slight interval increase in size of left temporal metastatic lesion, stable left old central gyrus lesion. Concern for focal leptomeningeal and dural involvement.) Case discussed with Dr. Villeda (patient's [facility] health information management director/oncologist) He recommends IV heparin for now and transitioning to Eliquis if tolerated by patient. Follow troponin-trending down doubt any ACS Type 2 diabetes mellitus with bilateral toe infections Basal bolus insulin, ISS BG goal 1 10-1 40, carb count coverage Multiple toe infection of 3 weeks duration on new doxycycline Rx No sepsis for now Rule out [id number] of the feet did not show any evidence of osteomyelitis May need MRI to definitely rule out osteomyelitis if plain x-ray negative Podiatry consult Re: Diabetic toe infection We will ask for wound care consult and continue doxycycline for now Await agent ticketing gate/Ortho evaluation ARF secondary to illness Monitor creatinine response to IVF, hold lisinopril and home diuretic until creatinine back to baseline Creatinine has been normalized Peripheral arterial disease Status post CVA Bilateral lower extremity arterial Doppler showed extensive atherosclerotic plaque within the lower extremities with hemodynamically significant stenosis within the bilateral superficial femoral arteries more severe on the right Appreciate vascular surgery input and recommendation-no intervention at this time If the patient requires IVC filter the vascular team can be called again Asymptomatic troponin elevation in the setting of kidney dysfunction Doubt any ACS Asymptomatic pyuria, patient not septic Follow repeat CS, hold off on antibiotics for now for asymptomatic pyuria. HTN, stable COPD, lung status at baseline Hyperlipidemia on statin Rx Seizure disorder stable on Keppra regimen Past tobacco abuse. DVT prophylaxis IV heparin Full code Patient sisters requesting updates from providers. Yoly Maki Jocelyn, contact numbers [phone]. Raffi Massey, contact #[phone]. Admission and Anticipated Discharge Date Admission Date: July 16, 2022 Subjective 07/17/2022 The patient was seen and examined in medical floor She denies any symptoms at rest but remains very upset due to bilateral toes infection She denies any fever and or chills Denies any nausea and or vomiting Review of Systems Review of Systems: All systems reviewed and are unremarkable except as noted below Musculoskeletal: Bilateral toes infection Physical Exam Physical Exam: Sitting on a chair without any acute distress Constitutional: well developed, well nourished, + ill appearing and + thin Eyes: PERRL, conjunctivae normal, anicteric sclerae ENMT: external ear and nose normal, oropharynx normal Neck: trachea midline, no thyromegaly Respiratory: no respiratory distress Auscultation: lungs clear to auscultation bilaterally Cardiovascular: Rate/Rhythm: regular rate and regular rhythm; not tachycardic Heart Sounds: normal S1 and normal S2; no murmur Extremities: + edema (Bilateral leg swelling mostly confined to ankles) Gastrointestinal (Abdomen): Inspection/Auscultation: normal bowel sounds; abdomen not distended Percussion/Palpation: abdomen soft; abdomen nontender Musculoskeletal: No acute arthritis in any joint Neurologic: Alert, awake and oriented x3. No focal sensory or no motor deficit appreciated Lymphatic: no cervical or axillary lymphadenopathy Results & Data Results & Data ([facility]) Vital Signs (Past 12 Hours) Vital Signs Temp Pulse Resp BP Pulse Ox O2 Del Method O2 Flow Rate 07/17/22 07:15 Nasal Cannula 2 07/17/22 07:57 36.3 C L 60 18 122/70 98 Nasal Cannula 2 Medications Administered Current Inpatient Medications Acetaminophen (Acetaminophen 325 Mg Tab) 650 mg PO Q6 PRN PRN Reason: as directed Stop: 08/15/22 04:12 Last Admin: 07/16/22 14:49 Dose: 650 mg Dexamethasone (Dexamethasone 4 Mg Tab) 4 mg PO TID JENNIFER Stop: 08/15/22 08:59 Last Admin: 07/17/22 13:51 Dose: 4 mg Dextrose (Dextrose 50% 50 Ml Syringe) 25 - 50 ml IV UD PRN; Protocol PRN Reason: Hypoglycemia Protocol Stop: 08/15/22 04:12 Doxycycline Hyclate (Doxycycline Hyclate 100 Mg Cap) 100 mg PO AMHS JENNIFER Stop: 07/23/22 08:59 Last Admin: 07/17/22 09:21 Dose: 100 mg Gabapentin (Gabapentin 100 Mg Cap) 100 mg PO HS JENNIFER Stop: 08/15/22 20:59 Last Admin: 07/16/22 20:40 Dose: 100 mg Glucagon (Glucagon For Inj 1 Mg Vial) 1 mg SQ UD PRN; Protocol PRN Reason: Hypoglycemia Protocol Stop: 08/15/22 04:12 Glucose (Glucose 40% Gel 15 Gm Tube) 15 - 30 gm PO UD PRN; Protocol PRN Reason: Hypoglycemia Protocol Stop: 08/15/22 04:12 Glucose (Glucose 10 Tab/Tube) 4 - 8 tab PO UD PRN; Protocol PRN Reason: Hypoglycemia Treatment Stop: 08/15/22 04:12 Promethazine HCl 6.25 mg/ (Sodium Chloride) 50.25 mls @ 201 mls/hr IV Q6H PRN PRN Reason: Nausea And Vomiting Stop: 08/15/22 04:12 Heparin Sodium/Dextrose (Heparin Sodium/Dextrose) 25,000 units in 500 mls @ 7 mls/hr IV .Q24H JENNIFER; Protocol Stop: 08/15/22 07:29 Last Titration: 07/17/22 12:37 Dose: 350 units/hr, 7 mls/hr Insulin Aspart (Insulin Aspart Per Unit) 0 units SC ACHS [facility] Stop: 08/15/22 04:12 Last Admin: 07/17/22 13:49 Dose: 5 units Insulin Glargine (Lantus Per Unit Charge) 15 units SQ HS [facility] Stop: 08/15/22 20:59 Last Admin: 07/16/22 20:38 Dose: 15 units Levetiracetam (Levetiracetam 500 Mg Tab) 1,000 mg PO AMHS [facility] Stop: 08/15/22 04:12 Last Admin: 07/17/22 09:22 Dose: 1,000 mg Levothyroxine Sodium (Levothyroxine Sodium 25 Mcg Tablet) 25 mcg PO DAILYBB [facility] Stop: 08/15/22 06:29 Last Admin: 07/17/22 05:13 Dose: 25 mcg Lidocaine (Lidocaine 5% 1 Patch) 1 patch TD QAM [facility] Stop: 08/15/22 15:14 Last Admin: 07/17/22 09:22 Dose: 1 patch Lorazepam (Lorazepam 0.5 Mg Tab) 0.5 mg PO Q8 PRN PRN Reason: Anxiety Stop: 08/15/22 04:12 Miscellaneous (Carbohydrates For Hypoglycemia ) 15 - 30 gm PO UD PRN PRN Reason: Hypoglycemia Protocol Stop: 08/15/22 04:12 Miscellaneous (Remove Lidoderm Patch) 1 each N/A DAILY@2100 [facility] Stop: 08/15/22 20:59 Last Admin: 07/16/22 20:40 Dose: 1 each Oxycodone HCl (Oxycodone Hcl Ir 5 Mg Tab (Immediate Release)) 5 mg PO Q4H PRN PRN Reason: Pain Stop: 07/30/22 04:12 Pantoprazole Sodium (Pantoprazole 40 Mg Tab) 40 mg PO DAILY [facility] Stop: 08/15/22 08:59 Last Admin: 07/17/22 09:21 Dose: 40 mg
[2022-07-17 19:31] LABS: Partial Thromboplastin Time 54.2 Seconds (21.0-31.0)
[2022-07-17] MEDS: LANTUS PER UNIT CHARGE SQ SCH (20:34)
[2022-07-17] MEDS: GABAPENTIN 100 MG CAP PO SCH (20:36)
[2022-07-18] MEDS: LEVOTHYROXINE SODIUM 25 MCG TABLET PO SCH (05:55)
[2022-07-18 06:48] LABS: Hematocrit (blood only) 31.7 % (34.1-44.9); Hemoglobin 10.8 g/dl (12.0-16.0); Mean Corpuscular Hgb Conc 34.1 g/dL (32.0-36.0); Mean Corpuscular Volume 88.1 fL (80.0-100.0); Mean Platelet Volume 11.1 fL (9.4-12.3); Nucleated RBC # (auto) 0.05 K/uL (0-0); Nucleated RBC % (auto) 0.5 %; Platelet Count 174 K/uL (130-400); RDW Coefficient of Variation 17.4 % (11.5-14.5); RDW Standard Deviation 55.4 fL (36.4-46.3); White Blood Count 10.01 K/ul (4.8-10.8)
[2022-07-18 07:01] LABS: BUN Creatinine Ratio 53.8 (10-20); Calcium 8.1 mg/dl (8.5-10.1); Creatinine Clr Calc Pharmacy 43.4 ml/min; Est GFR (African American) 80.7 ml/min; Est GFR (Non-African American) 69.6 ml/min; Potassium 5.2 mmol/L (3.5-5.1)
[2022-07-18 07:12] LABS: Partial Thromboplastin Ratio 1.8
[2022-07-18 07:15] LABS: Basophils # (auto) 0.04 K/uL (0-0.2); Basophils % (auto) 0.4 %; Echinocytes 1+; Eosinophils # (auto) 0.04 K/uL (0-0.50); Eosinophils % (auto) 0.4 %; Immature Granulocytes # (auto) 0.65 K/uL (0.00-0.02); Immature Granulocytes % (auto) 6.5 %; Lymphocytes # (auto) 0.33 K/uL (1.2-3.4); Lymphocytes % (auto) 3.3 %; Monocytes # (auto) 0.11 K/uL (0.24-0.82); Monocytes % (auto) 1.1 %; Neutrophils # (auto) 8.84 K/uL (1.4-6.5); Neutrophils % (auto) 88.3 %
[2022-07-18 07:30] LABS: Partial Thromboplastin Time 48.6 Seconds (21.0-31.0)
[2022-07-18] MEDS: PANTOprazole 40 MG TAB PO SCH (08:02)
[2022-07-18] MEDS: dexAMETHasone 4 MG TAB PO SCH ×3 (08:02→20:47)
[2022-07-18] MEDS: levETIRAcetam 500 MG TAB PO SCH ×2 (08:02→20:47)
[2022-07-18] MEDS: DOXYCYCLINE HYCLATE 100 MG CAP PO SCH (08:02)
[2022-07-18] MEDS: INSULIN ASPART PER UNIT SC SCH ×4 (08:03→20:54)
[2022-07-18] MEDS ORDERED: Nursing to Pharmacy Communication SCH (09:15)
[2022-07-18] MEDS: LIDOCAINE 5% 1 PATCH TD SCH ×2 (10:43→20:46)
[2022-07-18] MEDS: HEPARIN SODIUM/DEXTROSE 25,000 UNITS/500 ML BAG IV SCH ×2 (13:02→19:34)
--- NOTE | 2022-07-18 15:07 | Hospitalist Progress Note ---
Date of Service July 18, 2022 Assessment & Plan (1) DVT (deep venous thrombosis): Plan: hx NSCLC status post surgery status post Keytruda with brain mets status post radiation on Decadron (Outpatient brain MRI done this month showed decrease in size of right parietal metastatic lesion with slightly increased edema possibly representing postradiation effect, slight interval increase in size of left temporal metastatic lesion, stable left old central gyrus lesion. Concern for focal leptomeningeal and dural involvement.) Case discussed with Dr. Villeda (patient's [facility] weight guesser/oncologist) He recommends IV heparin for now and transitioning to Eliquis if tolerated by patient. Follow troponin-trending down doubt any ACS Remains stable medically-we will change heparin to oral Eliquis on discharge Urine culture is growing Pseudomonas Will start Cipro Check EKG tomorrow Type 2 diabetes mellitus with bilateral toe infections Basal bolus insulin, ISS BG goal 1 10-1 40, carb count coverage Multiple toe infection of 3 weeks duration on new doxycycline Rx No sepsis for now Rule out [id number] of the feet did not show any evidence of osteomyelitis May need MRI to definitely rule out osteomyelitis if plain x-ray negative Podiatry consult Re: Diabetic toe infection We will ask for wound care consult and continue doxycycline for now Await diabetes nurse/Ortho evaluation-appreciate diabetes nurse input and recommendation She does not have any cellulitis and/or ulcerations involving the toes bilaterally. Only has erythema involving the tips of the toe pulp ARF secondary to illness Monitor creatinine response to IVF, hold lisinopril and home diuretic until creatinine back to baseline Creatinine has been normalized Peripheral arterial disease Status post CVA Bilateral lower extremity arterial Doppler showed extensive atherosclerotic plaque within the lower extremities with hemodynamically significant stenosis within the bilateral superficial femoral arteries more severe on the right Appreciate vascular surgery input and recommendation-no intervention at this time If the patient requires IVC filter the vascular team can be called again Asymptomatic troponin elevation in the setting of kidney dysfunction Doubt any ACS Asymptomatic pyuria, patient not septic Follow repeat CS, hold off on antibiotics for now for asymptomatic pyuria. HTN, stable COPD, lung status at baseline Hyperlipidemia on statin Rx Seizure disorder stable on Keppra regimen Past tobacco abuse. DVT prophylaxis IV heparin Full code Patient sisters requesting updates from providers. Maki Jocelyn, contact numbers [phone]. Raffi Massey, contact #[phone]. Admission and Anticipated Discharge Date Admission Date: July 16, 2022 Subjective 07/17/2022 The patient was seen and examined in medical floor She denies any symptoms at rest but remains very upset due to bilateral toes infection She denies any fever and or chills Denies any nausea and or vomiting 07/18/2022 The patient was seen and examined in medical floor She has been feeling much better and complains that her toe infection is not being taken care of Denies any pain in the affected denies any other symptoms Review of Systems Review of Systems: All systems reviewed and are unremarkable except as noted below Musculoskeletal: Bilateral toes infection-no definite infection except redness. Please see the picture for an assessment Physical Exam Physical Exam: Sitting on a chair without any acute distress Constitutional: well developed, well nourished, + ill appearing and + thin Eyes: PERRL, conjunctivae normal, anicteric sclerae ENMT: external ear and nose normal, oropharynx normal Neck: trachea midline, no thyromegaly Respiratory: no respiratory distress Auscultation: lungs clear to auscultation bilaterally Cardiovascular: Rate/Rhythm: regular rate and regular rhythm; not tachycardic Heart Sounds: normal S1 and normal S2; no murmur Extremities: + edema (Bilateral leg swelling mostly confined to ankles) Gastrointestinal (Abdomen): Inspection/Auscultation: normal bowel sounds; abdomen not distended Percussion/Palpation: abdomen soft; abdomen nontender Musculoskeletal: Ankle: + ankle abnormal to inspection (Bilateral ankle swelling) and + skin erythema (Involving the tips of the toes) 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 No acute arthritis in any joint Skin: + ecchymosis Neurologic: plantar reflexes intact bilaterally and moves all extremities; no focal motor deficits and not confused Lymphatic: no cervical or axillary lymphadenopathy Results & Data Results & Data ([place]) Vital Signs (Past 12 Hours) Vital Signs Temp Pulse Resp BP Pulse Ox O2 Del Method O2 Flow Rate 07/18/22 14:49 36.6 C 62 20 138/75 100 Nasal Cannula 2 07/18/22 08:30 Nasal Cannula 2 07/18/22 07:35 36.3 C L 48 L 18 142/65 H 93 Nasal Cannula 2 Laboratory Results Short CBC 07/18/22 Range/Units 05:51 WBC 10.01 (4.8-10.8) K/ul Hgb 10.8 L (12.0-16.0) g/dl Hct 31.7 L (34.1-44.9) % Plt Count 174 (130-400) K/uL [facility] 07/18/22 05:51 Sodium 138 Potassium 5.2 H D Chloride 108 H Carbon Dioxide 26 BUN 43 H D Creatinine 0.80 Glucose 123 H Calcium 8.1 L Medications Administered Current Inpatient Medications Acetaminophen (Acetaminophen 325 Mg Tab) 650 mg PO Q6 PRN PRN Reason: as directed Stop: 08/15/22 04:12 Last Admin: 07/16/22 14:49 Dose: 650 mg Ciprofloxacin (Ciprofloxacin 250 Mg Tab) 250 mg PO BID [facility] Stop: 07/23/22 14:59 Dexamethasone (Dexamethasone 4 Mg Tab) 4 mg PO TID [facility] Stop: 08/15/22 08:59 Last Admin: 07/18/22 08:02 Dose: 4 mg Dextrose (Dextrose 50% 50 Ml Syringe) 25 - 50 ml IV UD PRN; Protocol PRN Reason: Hypoglycemia Protocol Stop: 08/15/22 04:12 Gabapentin (Gabapentin 100 Mg Cap) 100 mg PO HS JENNIFER Stop: 08/15/22 20:59 Last Admin: 07/17/22 20:36 Dose: 100 mg Glucagon (Glucagon For Inj 1 Mg Vial) 1 mg SQ UD PRN; Protocol PRN Reason: Hypoglycemia Protocol Stop: 08/15/22 04:12 Glucose (Glucose 40% Gel 15 Gm Tube) 15 - 30 gm PO UD PRN; Protocol PRN Reason: Hypoglycemia Protocol Stop: 08/15/22 04:12 Glucose (Glucose 10 Tab/Tube) 4 - 8 tab PO UD PRN; Protocol PRN Reason: Hypoglycemia Treatment Stop: 08/15/22 04:12 Promethazine HCl 6.25 mg/ (Sodium Chloride) 50.25 mls @ 201 mls/hr IV Q6H PRN PRN Reason: Nausea And Vomiting Stop: 08/15/22 04:12 Heparin Sodium/Dextrose (Heparin Sodium/Dextrose) 25,000 units in 500 mls @ 7 mls/hr IV .Q24H JENNIFER; Protocol Stop: 08/15/22 07:29 Last Admin: 07/18/22 13:02 Dose: 350 units/hr, 7 mls/hr Insulin Aspart (Insulin Aspart Per Unit) 0 units SC ACHS [facility]ENN[facility] Stop: 08/15/22 04:12 Last Admin: 07/18/22 12:58 Dose: 6 units Insulin Glargine (Lantus Per Unit Charge) 15 units SQ HS [facility]ENN[facility]ER Stop: 08/15/22 20:59 Last Admin: 07/17/22 20:34 Dose: 15 units Levetiracetam (Levetiracetam 500 Mg Tab) 1,000 mg PO AMHS JENNIFER Stop: 08/15/22 04:12 Last Admin: 07/18/22 08:02 Dose: 1,000 mg Levothyroxine Sodium (Levothyroxine Sodium 25 Mcg Tablet) 25 mcg PO DAILYBB [facility] Stop: 08/15/22 06:29 Last Admin: 07/18/22 05:55 Dose: 25 mcg Lidocaine (Lidocaine 5% 1 Patch) 1 patch TD HS [facility] Stop: 08/17/22 20:59 Lorazepam (Lorazepam 0.5 Mg Tab) 0.5 mg PO Q8 PRN PRN Reason: Anxiety Stop: 08/15/22 04:12 Miscellaneous (Carbohydrates For Hypoglycemia ) 15 - 30 gm PO UD PRN PRN Reason: Hypoglycemia Protocol Stop: 08/15/22 04:12 Miscellaneous (Remove Lidoderm Patch) 1 each N/A DAILY@0900 [facility] Stop: 08/18/22 08:59 Oxycodone HCl (Oxycodone Hcl Ir 5 Mg Tab (Immediate Release)) 5 mg PO Q4H PRN PRN Reason: Pain Stop: 07/30/22 04:12 Pantoprazole Sodium (Pantoprazole 40 Mg Tab) 40 mg PO DAILY [facility] Stop: 08/15/22 08:59 Last Admin: 07/18/22 08:02 Dose: 40 mg
[2022-07-18] MEDS: CIPROFLOXACIN 250 MG TAB PO SCH ×2 (15:26→20:47)
[2022-07-18] MEDS: GABAPENTIN 100 MG CAP PO SCH (20:47)
[2022-07-18] MEDS: LANTUS PER UNIT CHARGE SQ SCH (20:55)
[2022-07-19] MEDS: LEVOTHYROXINE SODIUM 25 MCG TABLET PO SCH (05:27)
[2022-07-19 07:01] LABS: Partial Thromboplastin Ratio 1.4; Partial Thromboplastin Time 37.9 Seconds (21.0-31.0)
[2022-07-19] MEDS ORDERED: Nursing to Pharmacy Communication SCH (07:15)
[2022-07-19] MEDS: HEPARIN SODIUM/DEXTROSE 25,000 UNITS/500 ML BAG IV SCH (07:53)
[2022-07-19] MEDS: PANTOprazole 40 MG TAB PO SCH (08:00)
[2022-07-19] MEDS: levETIRAcetam 500 MG TAB PO SCH ×2 (08:00→20:45)
[2022-07-19] MEDS ORDERED: HEPARIN SOD (PORCINE) 1000 UNIT/ML IV ONE (08:00)
[2022-07-19] MEDS: dexAMETHasone 4 MG TAB PO SCH ×3 (08:01→20:47)
[2022-07-19] MEDS: CIPROFLOXACIN 250 MG TAB PO SCH ×2 (08:01→20:47)
[2022-07-19] MEDS: INSULIN ASPART PER UNIT SC SCH ×4 (09:07→20:43)
[2022-07-19 11:18] LABS: BUN Creatinine Ratio 44.6 (10-20); Calcium 7.7 mg/dl (8.5-10.1); Creatinine Clr Calc Pharmacy 46.9 ml/min; Est GFR (African American) 88.7 ml/min; Est GFR (Non-African American) 76.5 ml/min; Potassium 4.9 mmol/L (3.5-5.1)
[2022-07-19 15:05] LABS: Partial Thromboplastin Ratio 1.9
[2022-07-19 15:20] LABS: Partial Thromboplastin Time 52.9 Seconds (21.0-31.0)
--- NOTE | 2022-07-19 16:12 | Hospitalist Progress Note ---
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 Concern for focal leptomeningeal and dural involvement.) Case discussed with Dr. Villeda (patient's [facility] clipper machine/oncologist) He recommends IV heparin for now and transitioning to Eliquis if tolerated by patient Follow troponin-trending down doubt any ACS Transitioned to Eliquis 10 mg twice daily on evening of 07/19/22 for 7 days, then continue 5mg BID Urinary tract infection Urine culture is growing Pseudomonas Started on Cipro 07/19/22. 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 XR of feet did not show any evidence of osteomyelitis She does not have any cellulitis and/or ulcerations involving the toes bilaterally Podiatry consulted- * wound instructions: Right leg ulcer cleansed with Betadine followed by normal saline. Application of foam dressing to right leg ulcer. Patient to continue with lower extremity compression. Socks applied over foam dressing. Appreciate wound care consult for leg ulcer dressing changes ARF secondary to illness --> resolved Monitor creatinine response to IVF, hold lisinopril and home diuretic until creatinine back to baseline Creatinine has been normalized Peripheral arterial disease Status post CVA Bilateral lower extremity arterial Doppler showed extensive atherosclerotic plaque within the lower extremities with hemodynamically significant stenosis within the bilateral superficial femoral arteries more severe R>L Appreciate vascular surgery input and recommendation-no intervention at this time If the patient requires IVC filter the vascular team can be called again HTN Stable. Continue home meds COPD lung status at baseline Hyperlipidemia on statin Rx Seizure disorder stable on Keppra regimen Past tobacco abuse. DVT prophylaxis IV heparin Full code Patient sisters requesting updates from providers. Ms. Maki Smithubb, contact numbers [phone]. Raffi Massey, contact #[phone]. Admission and Anticipated Discharge Date Admission Date: July 16, 2022 Supervising Physician Co-Signing Physician Notes Attending addendum The patient was seen and examined in medical floor She has been stable today and denies any symptoms She has been tolerating Cipro for UTI Denies any other symptom On Hemodynamically stable With clear chest Heart-S1-S2 regular Abdomen-benign Extremities-negative for any edema Her labs, EKG and imaging studies reviewed Has UTI, no evidence of cellulitis, DVT on heparin Agree with assessment and plan as outlined above by Oly Blakely PA-C. Dr Jett Saldaña Subjective Seen and examined in 303-1. States she is feeling much better and feels that her toes look and feel improved. Denies any fever, chills, lightheadedness, headache, chest pain, nausea, vomiting, abdominal pain, dysuria, diarrhea or constipation. Review of Systems Review of Systems: At least ten systems reviewed and negative except as noted in the HPI. Physical Exam Physical Exam: Gen: WD/WN, NAD, sitting in bedside chair, A&Ox3 HEENT: Normocephalic, atraumatic, conjunctivae moist, sclerae anicteric, mucous membranes moist Lung: Clear to Auscultation bilaterally, no wheezes/rales/rhonchi Heart: Regular rate, regular rhythm, no murmurs, rubs, or gallops Abdomen: Soft, NT, ND +BS x 4 Extremities: no edema Skin: Warm, no rash Results & Data Results & Data ([facility]) Vital Signs (Past 12 Hours) Vital Signs Temp Pulse Pulse Resp BP Pulse Ox O2 Del Method 07/19/22 15:51 36.3 C L 61 20 113/62 98 Nasal Cannula 07/19/22 08:30 Nasal Cannula 07/19/22 11:26 35.8 C L 60 17 147/53 H 95 Nasal Cannula 07/19/22 07:55 36.6 C 59 L 18 157/68 H 99 Nasal Cannula O2 Flow Rate 07/19/22 15:51 2 07/19/22 08:30 2 07/19/22 11:26 2 07/19/22 07:55 2
--- NOTE | 2022-07-19 16:47 | Electrocardiogram Report ---
Test Reason : Blood Pressure : / mmHG Vent. Rate : 049 BPM Atrial Rate : 049 BPM P-R Int : 140 ms QRS Dur : 088 ms QT Int : 484 ms P-R-T Axes : 056 069 070 degrees QTc Int : 437 ms Sinus bradycardia with occasional Premature ventricular complexes Otherwise normal ECG When compared with ECG of 15-JUL-2022 18:39, Vent. rate has decreased BY 33 BPM QRS duration has decreased ST no longer elevated in Anterior leads Confirmed by Andres Ruiz ([id number]) on 07/19/2022 4:46:59 PM Referred By: REFERRED SELF Confirmed By:Andres Ruiz
[2022-07-19] MEDS: LANTUS PER UNIT CHARGE SQ SCH (20:43)
[2022-07-19] MEDS ORDERED: HEPARIN STOP ORDER ONE (20:45)
[2022-07-19] MEDS: LIDOCAINE 5% 1 PATCH TD SCH (20:47)
[2022-07-19] MEDS: GABAPENTIN 100 MG CAP PO SCH (20:47)
[2022-07-19] MEDS: APIXABAN 5 MG TABLET PO SCH (20:52)
[2022-07-20] MEDS: LEVOTHYROXINE SODIUM 25 MCG TABLET PO SCH (06:06)
[2022-07-20 06:52] LABS: Hemoglobin 11.9 g/dl (12.0-16.0); Mean Corpuscular Hemoglobin 29.8 pg (25.0-34.0); Mean Corpuscular Volume 87.7 fL (80.0-100.0); Mean Platelet Volume 10.6 fL (9.4-12.3); Nucleated RBC # (auto) 0.08 K/uL (0-0); Nucleated RBC % (auto) 0.7 %; Platelet Count 211 K/uL (130-400); Red Blood Count 3.99 M/uL (3.93-5.22); White Blood Count 12.05 K/ul (4.8-10.8)
[2022-07-20 07:02] LABS: Partial Thromboplastin Ratio 0.8; Partial Thromboplastin Time 23.1 Seconds (21.0-31.0)
[2022-07-20 07:29] LABS: Acanthocytes 1+; Basophils # (manual) 0.12 K/uL (0-0.2); Basophils % (manual) 1 %; Lymphocytes # (manual) 0.24 K/uL (1.2-3.4); Lymphocytes % (manual) 2 %; Metamyelocytes # (manual) 0.36 K/uL (0-0); Metamyelocytes % (manual) 3 %; Monocytes # (manual) 0.24 K/uL (0.24-0.82); Monocytes % (manual) 2 %; Myelocytes # (manual) 0.12 K/uL (0-0); Myelocytes % (manual) 1 %; Neutrophils # (manual) 11.09 K/uL (1.4-6.5); Neutrophils % (manual) 92 %; Polychromasia 1+
[2022-07-20] MEDS: CIPROFLOXACIN 250 MG TAB PO SCH ×2 (09:10→20:03)
[2022-07-20] MEDS: APIXABAN 5 MG TABLET PO SCH ×2 (09:10→20:03)
[2022-07-20] MEDS: PANTOprazole 40 MG TAB PO SCH (09:11)
[2022-07-20] MEDS: levETIRAcetam 500 MG TAB PO SCH ×2 (09:11→20:03)
[2022-07-20] MEDS: dexAMETHasone 4 MG TAB PO SCH ×3 (09:11→20:03)
[2022-07-20] MEDS: INSULIN ASPART PER UNIT SC SCH ×4 (09:16→20:16)
[2022-07-20] MEDS: DOXYCYCLINE HYCLATE 100 MG CAP PO SCH ×2 (12:11→20:03)
[2022-07-20] MEDS: TORSEMIDE 10 MG TAB PO SCH (12:12)
--- NOTE | 2022-07-20 16:57 | Hospitalist Progress Note ---
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 Concern for focal leptomeningeal and dural involvement.) Case discussed with Dr. Villeda (patient's [facility] dip tube assembler machine/oncologist) He recommends IV heparin for now and transitioning to Eliquis if tolerated by patient Follow troponin-trending down doubt any ACS Transitioned to Eliquis 10 mg twice daily on evening of 07/19/22 for 7 days, then continue 5mg BID Has been tolerating Eliquis Has been on doxycycline for colon issues and given by wire web worker and she wants to continue that Urinary tract infection Urine culture is growing Pseudomonas Started on Cipro 07/19/22. 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 XR of feet did not show any evidence of osteomyelitis She does not have any cellulitis and/or ulcerations involving the toes bilaterally Podiatry consulted- * wound instructions: Right leg ulcer cleansed with Betadine followed by normal saline. Application of foam dressing to right leg ulcer. Patient to continue with lower extremity compression. Socks applied over foam dressing. Appreciate wound care consult for leg ulcer dressing changes ARF secondary to illness --> resolved Monitor creatinine response to IVF, hold lisinopril and home diuretic until creatinine back to baseline Creatinine has been normalized We can restart torsemide Peripheral arterial disease Status post CVA Bilateral lower extremity arterial Doppler showed extensive atherosclerotic plaque within the lower extremities with hemodynamically significant stenosis within the bilateral superficial femoral arteries more severe R>L Appreciate vascular surgery input and recommendation-no intervention at this time If the patient requires IVC filter the vascular team can be called again HTN Stable. Continue home meds COPD lung status at baseline Hyperlipidemia on statin Rx Seizure disorder stable on Keppra regimen Past tobacco abuse. DVT prophylaxis IV heparin Full code Patient sisters requesting updates from providers. Ms. Gambino Jocelyn, contact numbers [phone]. Raffi Massey, contact #[phone]. Admission and Anticipated Discharge Date Admission Date: July 16, 2022 Subjective Seen and examined in 303-1. States she is feeling much better and feels that her toes look and feel improved. Denies any fever, chills, lightheadedness, headache, chest pain, nausea, vomiting, abdominal pain, dysuria, diarrhea or constipation. 07/20/2022 The patient was seen and examined in medical floor She remained stable and she is worried that she is not getting her doxycycline and or torsemide Denies any significant symptoms Review of Systems Review of Systems: At least ten systems reviewed and negative except as noted in the HPI. Musculoskeletal: Bilateral toes infection-no definite infection except redness. Please see the picture for an assessment Physical Exam Physical Exam: Sitting on a chair without any acute distress Constitutional: well developed, well nourished, + ill appearing and + thin Eyes: PERRL, conjunctivae normal, anicteric sclerae ENMT: external ear and nose normal, oropharynx normal Neck: trachea midline, no thyromegaly Respiratory: no respiratory distress Auscultation: lungs clear to auscultation bilaterally Cardiovascular: Rate/Rhythm: regular rate and regular rhythm; not tachycardic Heart Sounds: normal S1 and normal S2; no murmur Extremities: + edema (Bilateral leg swelling mostly confined to ankles) Gastrointestinal (Abdomen): Inspection/Auscultation: normal bowel sounds; abdomen not distended Percussion/Palpation: abdomen soft; abdomen nontender Musculoskeletal: Ankle: + ankle abnormal to inspection (Bilateral ankle swelling) and + skin erythema (Involving the tips of the toes) Skin: + ecchymosis Neurologic: plantar reflexes intact bilaterally and moves all extremities; no focal motor deficits and not confused Lymphatic: no cervical or axillary lymphadenopathy Results & Data Results & Data ([facility]) Vital Signs (Past 12 Hours) Vital Signs Temp Pulse Resp BP Pulse Ox O2 Del Method O2 Flow Rate 07/20/22 15:18 36.6 C 71 18 128/77 96 Nasal Cannula 2 07/20/22 08:00 Nasal Cannula 2 07/20/22 11:40 36.5 C 68 17 120/70 95 Nasal Cannula 2 07/20/22 07:30 36.2 C L 68 17 124/76 96 Nasal Cannula 2 Laboratory Results Short CBC 07/20/22 Range/Units 06:40 WBC 12.05 H (4.8-10.8) K/ul Hgb 11.9 L (12.0-16.0) g/dl Hct 35.0 (34.1-44.9) % Plt Count 211 (130-400) K/uL Medications Administered Current Inpatient Medications Acetaminophen (Acetaminophen 325 Mg Tab) 650 mg PO Q6 PRN PRN Reason: as directed Stop: 08/15/22 04:12 Last Admin: 07/16/22 14:49 Dose: 650 mg Apixaban (Apixaban 5 Mg Tablet) 10 mg PO BID [facility] Stop: 07/26/22 09:01 Last Admin: 07/20/22 09:10 Dose: 10 mg Ciprofloxacin (Ciprofloxacin 250 Mg Tab) 250 mg PO BID [facility] Stop: 07/23/22 14:59 Last Admin: 07/20/22 09:10 Dose: 250 mg Dexamethasone (Dexamethasone 4 Mg Tab) 4 mg PO TID [facility] Stop: 08/15/22 08:59 Last Admin: 07/20/22 15:14 Dose: 4 mg Dextrose (Dextrose 50% 50 Ml Syringe) 25 - 50 ml IV UD PRN; Protocol PRN Reason: Hypoglycemia Protocol Stop: 08/15/22 04:12 Doxycycline Hyclate (Doxycycline Hyclate 100 Mg Cap) 100 mg PO BID [facility] Stop: 08/19/22 11:44 Last Admin: 07/20/22 12:11 Dose: 100 mg Gabapentin (Gabapentin 100 Mg Cap) 100 mg PO HS [facility] Stop: 08/15/22 20:59 Last Admin: 07/19/22 20:47 Dose: 100 mg Glucagon (Glucagon For Inj 1 Mg Vial) 1 mg SQ UD PRN; Protocol PRN Reason: Hypoglycemia Protocol Stop: 08/15/22 04:12 Glucose (Glucose 40% Gel 15 Gm Tube) 15 - 30 gm PO UD PRN; Protocol PRN Reason: Hypoglycemia Protocol Stop: 08/15/22 04:12 Glucose (Glucose 10 Tab/Tube) 4 - 8 tab PO UD PRN; Protocol PRN Reason: Hypoglycemia Treatment Stop: 08/15/22 04:12 Promethazine HCl 6.25 mg/ (Sodium Chloride) 50.25 mls @ 201 mls/hr IV Q6H PRN PRN Reason: Nausea And Vomiting Stop: 08/15/22 04:12 Insulin Aspart (Insulin Aspart Per Unit) 0 units SC ACHS [facility] Stop: 08/15/22 04:12 Last Admin: 07/20/22 13:02 Dose: 2 units Insulin Glargine (Lantus Per Unit Charge) 15 units SQ HS [facility] Stop: 08/15/22 20:59 Last Admin: 07/19/22 20:43 Dose: 15 units Levetiracetam (Levetiracetam 500 Mg Tab) 1,000 mg PO AMHS [facility] Stop: 08/15/22 04:12 Last Admin: 07/20/22 09:11 Dose: 1,000 mg Levothyroxine Sodium (Levothyroxine Sodium 25 Mcg Tablet) 25 mcg PO DAILYBB [facility] Stop: 08/15/22 06:29 Last Admin: 07/20/22 06:06 Dose: 25 mcg Lidocaine (Lidocaine 5% 1 Patch) 1 patch TD HS [facility] Stop: 08/17/22 20:59 Last Admin: 07/19/22 20:47 Dose: 1 patch Lorazepam (Lorazepam 0.5 Mg Tab) 0.5 mg PO Q8 PRN PRN Reason: Anxiety Stop: 08/15/22 04:12 Miscellaneous (Carbohydrates For Hypoglycemia ) 15 - 30 gm PO UD PRN PRN Reason: Hypoglycemia Protocol Stop: 08/15/22 04:12 Miscellaneous (Remove Lidoderm Patch) 1 each N/A DAILY@0900 [facility] Stop: 08/18/22 08:59 Last Admin: 07/20/22 09:12 Dose: 1 each Oxycodone HCl (Oxycodone Hcl Ir 5 Mg Tab (Immediate Release)) 5 mg PO Q4H PRN PRN Reason: Pain Stop: 07/30/22 04:12 Pantoprazole Sodium (Pantoprazole 40 Mg Tab) 40 mg PO DAILY [facility] Stop: 08/15/22 08:59 Last Admin: 07/20/22 09:11 Dose: 40 mg Torsemide (Torsemide 10 Mg Tab) 20 mg PO QAM [facility] Stop: 08/19/22 11:14 Last Admin: 07/20/22 12:12 Dose: 20 mg
[2022-07-20] MEDS: ACETAMINOPHEN 325 MG TAB PO PRN (20:03)
[2022-07-20] MEDS: LIDOCAINE 5% 1 PATCH TD SCH (20:03)
[2022-07-20] MEDS: GABAPENTIN 100 MG CAP PO SCH (20:03)
[2022-07-20] MEDS: LANTUS PER UNIT CHARGE SQ SCH (20:16)
[2022-07-21] MEDS: LEVOTHYROXINE SODIUM 25 MCG TABLET PO SCH (05:50)
[2022-07-21 07:25] LABS: Partial Thromboplastin Ratio 0.9; Partial Thromboplastin Time 24.7 Seconds (21.0-31.0)
[2022-07-21] MEDS: APIXABAN 5 MG TABLET PO SCH ×2 (09:11→20:41)
[2022-07-21] MEDS: dexAMETHasone 4 MG TAB PO SCH ×3 (09:11→20:39)
[2022-07-21] MEDS: CIPROFLOXACIN 250 MG TAB PO SCH ×2 (09:11→20:39)
[2022-07-21] MEDS: DOXYCYCLINE HYCLATE 100 MG CAP PO SCH ×2 (09:12→20:41)
[2022-07-21] MEDS: PANTOprazole 40 MG TAB PO SCH (09:13)
[2022-07-21] MEDS: levETIRAcetam 500 MG TAB PO SCH ×2 (09:13→20:40)
[2022-07-21] MEDS: TORSEMIDE 10 MG TAB PO SCH (09:14)
[2022-07-21] MEDS: INSULIN ASPART PER UNIT SC SCH ×4 (09:19→20:40)
--- NOTE | 2022-07-21 13:01 | Hospitalist Progress Note ---
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 Concern for focal leptomeningeal and dural involvement.) Case discussed with Dr. Villeda (patient's [facility] shale planer operator helper/oncologist) He recommends IV heparin for now and transitioning to Eliquis if tolerated by patient Follow troponin-trending down doubt any ACS Transitioned to Eliquis 10 mg twice daily on evening of 07/19/22 for 7 days, then continue 5mg BID Has been tolerating Eliquis Has been on doxycycline for colon issues and given by industrial service technician and she wants to continue that She feels lot better and less ankle swelling has improved She is back to her baseline and wants to be discharged and awaiting for placement Urinary tract infection Urine culture is growing Pseudomonas Started on Cipro 07/19/22. 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 XR of feet did not show any evidence of osteomyelitis She does not have any cellulitis and/or ulcerations involving the toes bilaterally Podiatry consulted- * wound instructions: Right leg ulcer cleansed with Betadine followed by normal saline. Application of foam dressing to right leg ulcer. Patient to continue with lower extremity compression. Socks applied over foam dressing. Appreciate wound care consult for leg ulcer dressing changes ARF secondary to illness --> resolved Monitor creatinine response to IVF, hold lisinopril and home diuretic until creatinine back to baseline Creatinine has been normalized We can restart torsemide Peripheral arterial disease Status post CVA Bilateral lower extremity arterial Doppler showed extensive atherosclerotic plaque within the lower extremities with hemodynamically significant stenosis within the bilateral superficial femoral arteries more severe R>L Appreciate vascular surgery input and recommendation-no intervention at this time If the patient requires IVC filter the vascular team can be called again HTN Stable. Continue home meds COPD lung status at baseline Hyperlipidemia on statin Rx Seizure disorder stable on Keppra regimen Past tobacco abuse. DVT prophylaxis IV heparin Full code Patient sisters requesting updates from providers. Ms. Maki Banks, contact numbers [phone]. Raffi Massey, contact #[phone]. Admission and Anticipated Discharge Date Admission Date: July 16, 2022 Subjective Seen and examined in 303-1. States she is feeling much better and feels that her toes look and feel improved. Denies any fever, chills, lightheadedness, headache, chest pain, nausea, vomiting, abdominal pain, dysuria, diarrhea or constipation. 07/20/2022 The patient was seen and examined in medical floor She remained stable and she is worried that she is not getting her doxycycline and or torsemide Denies any significant symptoms 07/21/2022 The patient was seen and examined in medical floor She has been much better and denies any symptoms Feels a lot better today Review of Systems Review of Systems: At least ten systems reviewed and negative except as noted in the HPI. Musculoskeletal: Bilateral toes infection-no definite infection except redness. Please see the picture for an assessment Physical Exam Physical Exam: Sitting on a chair without any acute distress Constitutional: well developed, well nourished, + ill appearing and + thin Eyes: PERRL, conjunctivae normal, anicteric sclerae ENMT: external ear and nose normal, oropharynx normal Neck: trachea midline, no thyromegaly Respiratory: no respiratory distress Auscultation: lungs clear to auscultation bilaterally Cardiovascular: Rate/Rhythm: regular rate and regular rhythm; not tachycardic Heart Sounds: normal S1 and normal S2; no murmur Extremities: + edema (Bilateral leg swelling mostly confined to ankles) Gastrointestinal (Abdomen): Inspection/Auscultation: normal bowel sounds; abdomen not distended Percussion/Palpation: abdomen soft; abdomen nontender Musculoskeletal: Ankle: + ankle abnormal to inspection (Bilateral ankle swelling) and + skin erythema (Involving the tips of the toes) Skin: + ecchymosis Neurologic: plantar reflexes intact bilaterally and moves all extremities; no focal motor deficits and not confused Lymphatic: no cervical or axillary lymphadenopathy Results & Data Results & Data ([facility]) Vital Signs (Past 12 Hours) Vital Signs Temp Pulse Pulse Resp BP Pulse Ox O2 Del Method 07/21/22 12:05 36.4 C L 72 18 110/65 95 Nasal Cannula 07/21/22 08:45 Nasal Cannula 07/21/22 07:27 36.3 C L 81 18 103/69 97 Nasal Cannula O2 Flow Rate 07/21/22 12:05 2 07/21/22 08:45 2 07/21/22 07:27 2 Medications Administered Current Inpatient Medications Acetaminophen (Acetaminophen 325 Mg Tab) 650 mg PO Q6 PRN PRN Reason: as directed Stop: 08/15/22 04:12 Last Admin: 07/20/22 20:03 Dose: 650 mg Apixaban (Apixaban 5 Mg Tablet) 10 mg PO BID [facility] Stop: 07/26/22 09:01 Last Admin: 07/21/22 09:11 Dose: 10 mg Ciprofloxacin (Ciprofloxacin 250 Mg Tab) 250 mg PO BID [facility] Stop: 07/23/22 14:59 Last Admin: 07/21/22 09:11 Dose: 250 mg Dexamethasone (Dexamethasone 4 Mg Tab) 4 mg PO TID [facility] Stop: 08/15/22 08:59 Last Admin: 07/21/22 09:11 Dose: 4 mg Dextrose (Dextrose 50% 50 Ml Syringe) 25 - 50 ml IV UD PRN; Protocol PRN Reason: Hypoglycemia Protocol Stop: 08/15/22 04:12 Doxycycline Hyclate (Doxycycline Hyclate 100 Mg Cap) 100 mg PO BID [facility] Stop: 08/19/22 11:44 Last Admin: 07/21/22 09:12 Dose: 100 mg Gabapentin (Gabapentin 100 Mg Cap) 100 mg PO HS [facility] Stop: 08/15/22 20:59 Last Admin: 07/20/22 20:03 Dose: 100 mg Glucagon (Glucagon For Inj 1 Mg Vial) 1 mg SQ UD PRN; Protocol PRN Reason: Hypoglycemia Protocol Stop: 08/15/22 04:12 Glucose (Glucose 40% Gel 15 Gm Tube) 15 - 30 gm PO UD PRN; Protocol PRN Reason: Hypoglycemia Protocol Stop: 08/15/22 04:12 Glucose (Glucose 10 Tab/Tube) 4 - 8 tab PO UD PRN; Protocol PRN Reason: Hypoglycemia Treatment Stop: 08/15/22 04:12 Promethazine HCl 6.25 mg/ (Sodium Chloride) 50.25 mls @ 201 mls/hr IV Q6H PRN PRN Reason: Nausea And Vomiting Stop: 08/15/22 04:12 Insulin Aspart (Insulin Aspart Per Unit) 0 units SC ACHS [facility] Stop: 08/15/22 04:12 Last Admin: 07/21/22 09:19 Dose: 3 units Insulin Glargine (Lantus Per Unit Charge) 15 units SQ HS [facility] Stop: 08/15/22 20:59 Last Admin: 07/20/22 20:16 Dose: 15 units Levetiracetam (Levetiracetam 500 Mg Tab) 1,000 mg PO AMHS [facility] Stop: 08/15/22 04:12 Last Admin: 07/21/22 09:13 Dose: 1,000 mg Levothyroxine Sodium (Levothyroxine Sodium 25 Mcg Tablet) 25 mcg PO DAILYBB [facility] Stop: 08/15/22 06:29 Last Admin: 07/21/22 05:50 Dose: 25 mcg Lidocaine (Lidocaine 5% 1 Patch) 1 patch TD HS [facility] Stop: 08/17/22 20:59 Last Admin: 07/20/22 20:03 Dose: 1 patch Lorazepam (Lorazepam 0.5 Mg Tab) 0.5 mg PO Q8 PRN PRN Reason: Anxiety Stop: 08/15/22 04:12 Miscellaneous (Carbohydrates For Hypoglycemia ) 15 - 30 gm PO UD PRN PRN Reason: Hypoglycemia Protocol Stop: 08/15/22 04:12 Miscellaneous (Remove Lidoderm Patch) 1 each N/A DAILY@0900 [facility] Stop: 08/18/22 08:59 Last Admin: 07/21/22 09:14 Dose: 1 each Oxycodone HCl (Oxycodone Hcl Ir 5 Mg Tab (Immediate Release)) 5 mg PO Q4H PRN PRN Reason: Pain Stop: 07/30/22 04:12 Pantoprazole Sodium (Pantoprazole 40 Mg Tab) 40 mg PO DAILY [facility] Stop: 08/15/22 08:59 Last Admin: 07/21/22 09:13 Dose: 40 mg Torsemide (Torsemide 10 Mg Tab) 20 mg PO QAM [facility] Stop: 08/19/22 11:14 Last Admin: 07/21/22 09:14 Dose: 20 mg
[2022-07-21] MEDS: GABAPENTIN 100 MG CAP PO SCH (20:39)
[2022-07-21] MEDS: LANTUS PER UNIT CHARGE SQ SCH (20:40)
[2022-07-21] MEDS: LIDOCAINE 5% 1 PATCH TD SCH (20:41)
[2022-07-22] MEDS: LEVOTHYROXINE SODIUM 25 MCG TABLET PO SCH (05:50)
[2022-07-22 06:03] LABS: Hematocrit (blood only) 32.6 % (34.1-44.9); Hemoglobin 11.4 g/dl (12.0-16.0); Mean Corpuscular Hemoglobin 30.1 pg (25.0-34.0); Mean Platelet Volume 10.4 fL (9.4-12.3); Nucleated RBC # (auto) 0.13 K/uL (0-0); Nucleated RBC % (auto) 1.1 %; Platelet Count 202 K/uL (130-400); RDW Coefficient of Variation 18.1 % (11.5-14.5); RDW Standard Deviation 55.2 fL (36.4-46.3); Red Blood Count 3.79 M/uL (3.93-5.22); White Blood Count 12.34 K/ul (4.8-10.8)
[2022-07-22 06:20] LABS: Partial Thromboplastin Ratio 0.9; Partial Thromboplastin Time 24.1 Seconds (21.0-31.0)
[2022-07-22 06:26] LABS: BUN Creatinine Ratio 41.3 (10-20); Calcium 7.5 mg/dl (8.5-10.1); Creatinine Clr Calc Pharmacy 28.7 ml/min; Est GFR (African American) 48.9 ml/min; Est GFR (Non-African American) 42.2 ml/min
[2022-07-22 06:48] LABS: Basophils # (auto) 0.06 K/uL (0-0.2); Basophils % (auto) 0.5 %; Immature Granulocytes # (auto) 1.11 K/uL (0.00-0.02); Lymphocytes # (auto) 0.34 K/uL (1.2-3.4); Lymphocytes % (auto) 2.8 %; Monocytes # (auto) 0.19 K/uL (0.24-0.82); Monocytes % (auto) 1.5 %; Neutrophils # (auto) 10.64 K/uL (1.4-6.5); Neutrophils % (auto) 86.2 %; Polychromasia 1+
[2022-07-22] MEDS: DOXYCYCLINE HYCLATE 100 MG CAP PO SCH ×2 (08:24→22:13)
[2022-07-22] MEDS: dexAMETHasone 4 MG TAB PO SCH ×3 (08:24→22:13)
[2022-07-22] MEDS: levETIRAcetam 500 MG TAB PO SCH ×2 (08:24→22:31)
[2022-07-22] MEDS: CIPROFLOXACIN 250 MG TAB PO SCH ×2 (08:24→22:13)
[2022-07-22] MEDS: TORSEMIDE 10 MG TAB PO SCH (08:24)
[2022-07-22] MEDS: PANTOprazole 40 MG TAB PO SCH (08:25)
[2022-07-22] MEDS: APIXABAN 5 MG TABLET PO SCH ×2 (08:25→22:13)
[2022-07-22] MEDS: INSULIN ASPART PER UNIT SC SCH ×4 (08:28→22:58)
--- NOTE | 2022-07-22 11:53 | Hospitalist Progress Note ---
Date of Service July 22, 2022 Assessment & Plan (1) DVT (deep venous thrombosis): Plan: Hx NSCLC status post surgery status post Keytruda with brain mets status post radiation on Decadron (Outpatient brain MRI done this month showed decrease in size of right parietal metastatic lesion with slightly increased edema possibly representing postradiation effect, slight interval increase in size of left temporal metastatic lesion, stable left old central gyrus lesion. Concern for focal leptomeningeal and dural involvement.) Case discussed with Dr. Villeda (patient's [facility] exercise teacher/oncologist) He recommends IV heparin for now and transitioning to Eliquis if tolerated by patient Follow troponin-trending down doubt any ACS Transitioned to Eliquis 10 mg twice daily on evening of 07/19/22 for 7 days, then continue 5mg BID Has been tolerating Eliquis Has been on doxycycline for colon issues and given by industrial recruiter and she wants to continue that She feels lot better and less ankle swelling has improved She is back to her baseline and wants to be discharged and awaiting for placement Medically stable to be discharged Has been accepted to SNF and likely discharge tomorrow Urinary tract infection Urine culture is growing Pseudomonas Started on Cipro 07/19/22. 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 XR of feet did not show any evidence of osteomyelitis She does not have any cellulitis and/or ulcerations involving the toes bilaterally Podiatry consulted- * wound instructions: Right leg ulcer cleansed with Betadine followed by normal saline. Application of foam dressing to right leg ulcer. Patient to continue with lower extremity compression. Socks applied over foam dressing. Appreciate wound care consult for leg ulcer dressing changes ARF secondary to illness --> resolved Monitor creatinine response to IVF, hold lisinopril and home diuretic until creatinine back to baseline Creatinine has been normalized We can restart torsemide Peripheral arterial disease Status post CVA Bilateral lower extremity arterial Doppler showed extensive atherosclerotic plaque within the lower extremities with hemodynamically significant stenosis within the bilateral superficial femoral arteries more severe R>L Appreciate vascular surgery input and recommendation-no intervention at this time If the patient requires IVC filter the vascular team can be called again HTN Stable. Continue home meds COPD lung status at baseline Hyperlipidemia on statin Rx Seizure disorder stable on Keppra regimen Past tobacco abuse. DVT prophylaxis IV heparin Full code Patient sisters requesting updates from providers. Ms. Maki Banks, contact numbers [phone]. Raffi Massey, contact #[phone]. Admission and Anticipated Discharge Date Admission Date: July 16, 2022 Subjective Seen and examined in 303-1. States she is feeling much better and feels that her toes look and feel improved. Denies any fever, chills, lightheadedness, headache, chest pain, nausea, vomiting, abdominal pain, dysuria, diarrhea or constipation. 07/20/2022 The patient was seen and examined in medical floor She remained stable and she is worried that she is not getting her doxycycline and or torsemide Denies any significant symptoms 07/21/2022 The patient was seen and examined in medical floor She has been much better and denies any symptoms Feels a lot better today 07/22/2022 Patient examined and seen in medical floor She remained stable and denies any significant symptoms Should be discharged tomorrow Review of Systems Review of Systems: At least ten systems reviewed and negative except as noted in the HPI. Musculoskeletal: Bilateral toes infection-no definite infection except redness. Please see the picture for an assessment Physical Exam Physical Exam: Sitting on a chair without any acute distress Constitutional: well developed, well nourished and + thin; not ill appearing Eyes: PERRL, conjunctivae normal, anicteric sclerae ENMT: external ear and nose normal, oropharynx normal Neck: trachea midline, no thyromegaly Respiratory: no respiratory distress Auscultation: lungs clear to auscultation bilaterally Cardiovascular: Rate/Rhythm: regular rate and regular rhythm; not tachycardic Heart Sounds: normal S1 and normal S2; no murmur Extremities: + edema (Bilateral leg swelling mostly confined to ankles) Gastrointestinal (Abdomen): Inspection/Auscultation: normal bowel sounds; abdomen not distended Percussion/Palpation: abdomen soft; abdomen nontender Musculoskeletal: Ankle: + ankle abnormal to inspection (Bilateral ankle swe lling) and + skin erythema (Involving the tips of the toes) Skin: + ecchymosis Neurologic: plantar reflexes intact bilaterally and moves all extremities; no focal motor deficits and not confused Psychiatric: A+Ox3, euthymic affect Lymphatic: no cervical or axillary lymphadenopathy Results & Data Results & Data ([facility]) Vital Signs (Past 12 Hours) Vital Signs Temp Pulse Resp BP Pulse Ox O2 Del Method O2 Flow Rate 07/22/22 07:05 Nasal Cannula 2 07/22/22 07:06 36.3 C L 73 16 109/67 99 Nasal Cannula 2 Medications Administered Short CBC 07/22/22 Range/Units 05:30 WBC 12.34 H (4.8-10.8) K/ul Hgb 11.4 L (12.0-16.0) g/dl Hct 32.6 L (34.1-44.9) % Plt Count 202 (130-400) K/uL BMP 07/22/22 05:30 Sodium 133 L Potassium 4.0 Chloride 103 Carbon Dioxide 24 BUN 50 H Creatinine 1.21 H Glucose 108 H Calcium 7.5 L
[2022-07-22] MEDS ORDERED: LORAZEPAM 2 MG/1 ML ONE (19:06)
[2022-07-22] MEDS ORDERED: LORazepam 1 MG in SYRINGE 0 ML IV STA (19:07)
[2022-07-22] MEDS ORDERED: LORazepam 1 MG in SYRINGE 0 ML IV PRN (19:08)
--- NOTE | 2022-07-22 19:35 | CT Scan Report ---
CT SCAN OF THE BRAIN WITHOUT IV CONTRAST CLINICAL HISTORY: Seizure. Metastatic disease. COMPARISON STUDY: CT of the brain dated 04/04/2022. MRI of the brain dated 04/05/2022. TECHNIQUE: Unenhanced axial CT scan of the brain is performed from the vertex to the skull base. A do se lowering technique was utilized adhering to the principles of ALARA. CT DOSE: 884.08 mGy.cm FINDINGS: Brain parenchyma: Again seen is slightly hyperdense mass lesion is identified in the right parietal l obe on axial image #19 measuring 2.0 cm and within the left temporal lobe on image #15 measuring 1.0 cm. These demonstrate surrounding edema and are consistent with metastatic disease. The showed gradie nt signal abnormality on the prior MRI and may be hemorrhagic. The degree of edema around these lesio ns has significantly improved as compared to 04/04/2022. There is minimal mass effect. No midline shif t is seen. No extra-axial fluid collection is identified. There is no evidence of acute territorial i schemia by CT criteria. There is age-related involutional change noting [id number] microangiopa thic disease. Ventricles, sulci, cisterns: Prominent secondary to involutional change. Intracranial vasculature: There is atherosclerotic calcification of the cavernous carotid and vertebr al arteries. Calvarium: Unremarkable. Sinuses and mastoids: There is trace mucosal thickening within the left maxillary antrum. The paranas al sinuses are otherwise clear. The mastoid air cells are well pneumatized. Orbits: The bony orbits are grossly intact. There are bilateral ocular lens implants. IMPRESSION: 1. Again seen is bilateral intracranial metastatic disease. The lesions are similar in appearance to the 04/04/2022 examination and may be hemorrhagic. 2. The degree of surrounding edema has significantly improved from previous. 3. There is no midline shift or evidence of acute territorial ischemia by CT criteria. ACT 112: Negative or not required by law. Electronically signed by: Tylor Galvan M.D. 07/22/2022 7:33 PM
[2022-07-22 19:52] LABS: Hematocrit (blood only) 31.3 % (34.1-44.9); Hemoglobin 11.3 g/dl (12.0-16.0); Mean Corpuscular Hemoglobin 30.5 pg (25.0-34.0); Mean Corpuscular Hgb Conc 36.1 g/dL (32.0-36.0); Mean Corpuscular Volume 84.6 fL (80.0-100.0); Mean Platelet Volume 10.9 fL (9.4-12.3); Nucleated RBC # (auto) 0.22 K/uL (0-0); Nucleated RBC % (auto) 1.5 %; Platelet Count 226 K/uL (130-400); RDW Coefficient of Variation 17.7 % (11.5-14.5); RDW Standard Deviation 53.3 fL (36.4-46.3); White Blood Count 14.25 K/ul (4.8-10.8)
--- NOTE | 2022-07-22 20:02 | Communication Note ---
Date of Service: July 22, 2022 RN informed that patient has been having jerking movements of her right upper extremity and feels weak on the right side. On my encounter, patient is alert, awake, oriented and states that she was not able to stop moving her right upper extremity. Also reports right-sided weakness. She denies any chest pain, shortness of breath but admits to being anxious. Patient was given 1 mg IV Ativan which immediately ceased jerking movements. CT head stat, CBC, CMP, Keppra levels requested. Patient likely had a breakthrough seizure. IV Ativan as needed for seizures ordered. Seizure precautions requested. Neurology consulted. Further management based on above studies.
[2022-07-22 20:19] LABS: Albumin Globulin Ratio 1.2 (0.9-2); Albumin Level 2.7 gm/dl (3.4-5.0); BUN Creatinine Ratio 36.6 (10-20); Bilirubin,Total 0.5 mg/dl (0.2-1.0); Calcium 7.1 mg/dl (8.5-10.1); Creatinine Clr Calc Pharmacy 24.4 ml/min; Est GFR (African American) 40.3 ml/min; Est GFR (Non-African American) 34.8 ml/min; Globulin 2.2 gm/dl (2.5-4.0); Magnesium 1.4 mg/dl (1.7-2.4); Potassium 4.3 mmol/L (3.5-5.1); Total Protein 4.9 gm/dl (6.0-8.3)
[2022-07-22] MEDS: GABAPENTIN 100 MG CAP PO SCH (22:13)
[2022-07-22] MEDS: LIDOCAINE 5% 1 PATCH TD SCH (22:31)
[2022-07-22] MEDS: LANTUS PER UNIT CHARGE SQ SCH (22:57)
[2022-07-22] MEDS: MAGNESIUM SULFATE / D5W 1 GM/100 ML BAG IV SCH (22:59)
[2022-07-22] MEDS: SODIUM CHLORIDE 0.9% 1000ML 1,000 ML IV SCH (22:59)
[2022-07-23] MEDS ORDERED: OPTIRAY 320 500ml IV ONE (00:40)
[2022-07-23] MEDS ORDERED: GADOBUTROL 65ML VIAL IV ONE (01:25)
[2022-07-23] MEDS: MAGNESIUM SULFATE / D5W 1 GM/100 ML BAG IV SCH (02:01)
[2022-07-23] MEDS: LEVOTHYROXINE SODIUM 25 MCG TABLET PO SCH (05:59)
--- NOTE | 2022-07-23 07:20 | CT Scan Report ---
HEAD CTA HISTORY: right hand weakness TECHNIQUE: Multiaxial CT images of the head were performed following the intravenous administration o f contrast to evaluate the major cerebral vessels. Maximum intensity projection images were also obta ined. A dose lowering technique was utilized adhering to the principles of ALARA. COMPARISON: Head CT 07/22/2022. FINDINGS: Redemonstration of the hyperdense 2.3 cm lesion within the right parietal lobe on image 159 . There is also a 9 mm hyperdense lesion within the left temporal lobe on image 142. This consistent the patient's known intracranial metastatic disease. The major dural venous sinuses appear patent. Vi sualized intracranial internal carotid arteries, distal vertebral arteries, and basilar artery are wi donta patent. There is no significant stenosis, occlusion, or aneurysm seen within the bilateral ACAs, MCAs, or appliance service technician. IMPRESSION: 1. No significant stenosis, occlusion, or aneurysm within the [place]. 2. Intracranial metastatic disease again noted. ACT 112: Negative or not required by law. Electronically signed by: James Villarreal M.D. 07/23/2022 7:18 AM
--- NOTE | 2022-07-23 07:31 | Magnetic Resonance Report ---
Brain MRI WITH AND WITHOUT CONTRAST HISTORY: right hand weakness TECHNIQUE: Multiplanar multisequence MRI of the brain was performed both before and after the intrave nous administration of contrast. COMPARISON STUDY: Head CT 07/22/2022. Brain MRI 04/05/2022. FINDINGS: No areas restricted diffusion to suggest an acute infarction. The midline structures are in tact. Paranasal sinuses and mastoid air cells are clear. The major vascular flow-voids at the skull b ase are well-maintained. The ventricles and sulci demonstrate mild age-related involutional changes. No midline shift. Overall, significant improvement of the vasogenic edema surrounding the intracrania l metastatic foci compared to the prior brain MRI. There are total of 3 enhancing intracranial metast atic lesions. Dominant lesion within the right posterior parietal lobe measures 1.6 cm and appears to demonstrate chronic hemorrhagic components. This is decreased in size compared to the prior study wh en it measured 2.2 cm. A left parietal lesion on image 16 has decreased in size and measures 5 mm, pr eviously measuring 9 mm. The left temporal lobe lesion has also decreased in size and measures 8 mm, previously measuring 13 mm. No new intracranial lesions identified. IMPRESSION: 1. No acute infarct. 2. Decrease in size in the intracranial metastatic foci with significant improvement in the surroundi ng vasogenic edema. Of note, the bilateral parietal lesions demonstrate a chronic hemorrhagic compone nt. ACT 112: Negative or not required by law. Electronically signed by: James Villarreal M.D. 07/23/2022 7:29 AM
[2022-07-23 07:33] LABS: Partial Thromboplastin Ratio 0.9; Partial Thromboplastin Time 23.4 Seconds (21.0-31.0)
--- NOTE | 2022-07-23 07:38 | CT Scan Report ---
NECK CTA HISTORY: right hand weakness TECHNIQUE: Multiaxial CT images of the neck were performed following the intravenous administration o f contrast to evaluate the major cervical vessels. Maximum intensity projection images were also obta ined. All measurements were calculated based on NASCET criteria. A dose lowering technique was utili zed adhering to the principles of ALARA. COMPARISON STUDY: Neck CTA 09/11/2020. FINDINGS: The aortic arch and proximal great vessels are widely patent. Emphysema and a few tree-in- bud nodular opacities seen within the left lung. Right apical pleural thickening is again noted. Calc ified plaque within the bilateral carotid siphons. This results in up to 50-60% stenosis within the p roximal bilateral internal carotid arteries. This remains unchanged. The bilateral vertebral arteries are widely patent. IMPRESSION: 1. No change compared to the prior study. 2. Calcified plaque within the bilateral carotid bifurcations resulting in 50-60% stenosis within the proximal bilateral internal carotid arteries. 3. The bilateral vertebral arteries are patent. ACT 112: Negative or not required by law. Electronically signed by: James Villarreal M.D. 07/23/2022 7:35 AM
[2022-07-23] MEDS: INSULIN ASPART PER UNIT SC SCH ×4 (08:09→21:56)
[2022-07-23] MEDS: APIXABAN 5 MG TABLET PO SCH ×2 (08:11→21:40)
[2022-07-23] MEDS: CIPROFLOXACIN 250 MG TAB PO SCH (08:11)
[2022-07-23] MEDS: dexAMETHasone 4 MG TAB PO SCH ×2 (08:12→21:38)
[2022-07-23] MEDS: TORSEMIDE 10 MG TAB PO SCH (08:12)
[2022-07-23] MEDS: PANTOprazole 40 MG TAB PO SCH (08:13)
[2022-07-23] MEDS: levETIRAcetam 500 MG TAB PO SCH ×2 (08:13→21:38)
[2022-07-23] MEDS: DOXYCYCLINE HYCLATE 100 MG CAP PO SCH ×2 (08:13→21:38)
[2022-07-23] MEDS ORDERED: levETIRAcetam 500 MG TAB PO ONE (10:15)
--- NOTE | 2022-07-23 10:25 | Nephrology Consultation ---
Date of Consultation July 23, 2022 Assessment & Plan (1) Hyponatremia: Presenting sodium 133>125 14 hrs later yesterday evening. I/O imperfectly recorded here but she is likely quite positive. no prior hx of sNa <130 in [facility]. unclear if change in sodium had a role in her seizure or not, though it's possible >recheck bmp now > 129 now -adjust IV fluid dosing > continue NS at 75 ml/hr -hold torsemide for now (2) Acute renal failure: recurrent stage 2 SASHA w/ baseline creatinine 0.7-0.8. presented 07/16 w/ creat 1.5, which trended to baseline 48 hrs later. Creat 0.7 on 07/19. Then next bmp on 07/22 w/ creat 1.2, up to 1.4 yesterday PM. pt relatively hypotensive this time compared to other admissions and also had a few hours w/ SBP <100. she has has IV contrast and is on torsemide. ischemic ATN likely to worsen given events of past 12-18 hours > improvinged/ re nal functino back to baseline w/ IVF -check UA -repeat bmp ordered now -low threshold for renal imaging pending clinical course -avoid further IV contrast -daily bmp -torsemide held; cont to hold outpatient ACEI (3) Hypomagnesemia: w/ possibly secondary hypocalcemia; had 2 gm IV mag last evening for mag 1.4 >recheck mag, Ca now and supplement as needed > no supplement for now; pls recheck both levels in am -PTH, 25 OHD also ordered History of Present Illness Reason for Consultation: hyponatremia Requesting Physician: Dr Angeles Attending Physician: Javier Saldaña MD History of Present Illness 82 y/o F whom I'm asked to see for hyponatremia was admitted 07/16 w/ worsening chronic BL toe infections and concern for vascular compromise in the setting of metastatic NSCLC with normal serum sodium on presentation. More recently this hospital stay pt has been having treatment for DVT, Pseudomonas UTI, and followed for SASHA which had as of 07/19 resolved w/ resumption of torsemide daily since 07/20. Vascular evaluated the pt and does not believe PAD requires surgical intervention at this time. Yesterday AM her sNa was 133 which dropped to 125 approximately 14 hrs later. Labs checked yesterday evening urgently b/c pt was having a breakthrough seizure which settled w/ dose of IV ativan. In the wake of seizure, pt received head/neck CTA and MRI to evaluate R hand weakness. Complex PMH includes NSCLC s/p surgery on keytruda and with brain mets on decadron and w/ previous hx I-C hemorrhage, seizure disorder, moderate PAD, HTN, COPD, DM on insulin, hx of keytruda-induced ulcerative colitis, chronic multiple toe infections on LT doxycycline. I/O are imperfect but she appears to be about 6L positive on the admission. She is currently receiving NS at 75 mL/hr. Daily torsemide was resumed 07/20. Next labs after 07/19 w/ creat 1.2 yesterday am and 1.4 yesterday evening. Baseline creatinine 0.8-1.0. She still feels quite weak and has some challenges controlling her urinary stream. some dyspnea but overall feeling a bit better after seizure last evening; states R sided weakness has resolved. Allergies Allergy/AdvReac Type Severity Reaction Status Date / Time baclofen AdvReac Mild felt funny Verified 07/15/22 23:33 pembrolizumab [From Keytruda] AdvReac Mild Diarrhea Verified 07/15/22 23:33 Home Medications Medication Instructions Recorded Confirmed Type cholecalciferol (vitamin D3) 25 25 mcg PO DAILY 04/04/22 07/15/22 History mcg (1,000 unit) tablet (Vitamin D3) denosumab 60 mg/mL subcutaneous 60 mg subcut .[id number] 04/04/22 07/15/22 History syringe (Prolia) gabapentin 100 mg capsule 100 mg PO HS 04/04/22 07/15/22 History insulin aspart U-100 100 unit/mL 4 unit subcut TIDM 04/04/22 07/15/22 History (3 mL) subcutaneous pen (Novolog Flexpen U-100 Insulin aspart) levothyroxine 25 mcg tablet 25 mcg PO DAILY 04/04/22 07/15/22 History linagliptin 5 mg tablet (Tradjenta) 5 mg PO QAM 04/04/22 07/15/22 History lorazepam 0.5 mg tablet 0.5 mg PO Q8 PRN Anxiety 04/04/22 07/15/22 History metronidazole 1 % topical gel 1 applic topical BID 04/04/22 07/15/22 History omeprazole 20 mg capsule,delayed 20 mg PO DAILY 04/04/22 07/15/22 History release rosuvastatin 10 mg tablet 10 mg PO HS 04/04/22 07/15/22 History torsemide 20 mg tablet 40 mg PO QAM 04/04/22 07/15/22 History dexamethasone 4 mg tablet 4 mg PO TID #0 tabs 04/09/22 07/15/22 Rx acetaminophen 325 mg tablet 650 mg PO Q6 PRN as directed 07/15/22 07/15/22 History doxycycline hyclate 100 mg capsule 100 mg PO AMHS 07/15/22 07/15/22 History insulin glargine 100 unit/mL (3 15 unit subcut QAM 07/15/22 07/15/22 History mL) subcutaneous pen (Basaglar KwikPen U-100 Insulin) levetiracetam 1,000 mg tablet 1,000 mg PO AMHS 07/15/22 07/15/22 History lisinopril 20 mg tablet 20 mg PO QAM 07/15/22 07/15/22 History mesalamine 1.2 gram tablet,delayed 2.4 g PO QAM 07/15/22 07/15/22 History release Patient History Medical History Anemia chronic iron deficiency anemia in setting of ulcerative colitis (does receive routine iron infusions), under surveillance of [facility] hematology/GI. Arthritis Clumsiness Depression Diabetes mellitus, type 2 NIDDM Dizziness High cholesterol History of radiation therapy Hypertension Hypothyroidism Left knee DJD Left knee DJD Leg edema, left Metastasis to brain dx 09/2020. MRI imaging and radiation treatments x5. Metastatic cancer to brain Nocturnal hypoxia 2L/min NC HS Non-small cell cancer of right lung (~2016) s/p lower and middle lung lobe resection (2017), no chemo or xrt PVCs (premature ventricular contractions) Ulcerative colitis Inflectra treatments - follows with [facility] GI Surgical History History of breast biopsy History of colonoscopy History of lobectomy of lung Right VATS middle and lower lobectomy: 07/11/17: Grade 2 view, MAC#3, BANG History of repair of rotator cuff History of tonsillectomy History of tubal ligation S/P right rotator cuff repair Status post right knee replacement Family History Sister Family history of diabetes mellitus Mother Alzheimer disease Father Myocardial infarction Other Heart disease No family history of adverse response to anesthesia Social History Smoking Status: Former smoker Tobacco Type: Cigarettes Second Hand Exposure: No; Hx Alcohol Use: No Hx Substance Use: No Preferred Language: Japanese Communication Ability: Effective Visual Impairment: No Limitations Dandy Operator Required: No Beliefs That Will Affect Care: None marital status: / Current Living Situation: Alone Current Living Situation Comment: [facility] How many Children do You have: 0 Feels Safe at Home: Yes Assistive Devices: Oxygen - at Night and Walker Review of Systems Review of Systems: All systems reviewed & are unremarkable except as noted in HPI & below Physical Exam Constitutional: well developed, well nourished, + frail appearing and cooperative; no acute distress Eyes: EOM intact bilaterally ENMT: Ears: no external ear abnormality Nose: no external nose abnormality Mouth: + dry oral mucous membranes cushingoid fascies Neck: no nuchal rigidity Respiratory: normal respiratory effort Auscultation: + diminished lung sounds Gastrointestinal (Abdomen): Inspection/Auscultation: normal bowel sounds Percussion/Palpation: abdomen soft; abdomen nontender Musculoskeletal: Extremities: strength 5/5 throughout Skin: no rashes, warm and dry purplish digits BL; diffuse ecchymoses/thin friable skin Neurologic: escoto, fluent speech, no tremor Psychiatric: Orientation: oriented x 3 (solightly slow processing) Results & Data ([facility]) Vital Signs (Past 12 Hours) Vital Signs Temp Pulse Pulse Resp BP Pulse Ox O2 Del Method 07/23/22 07:57 36.6 C 84 16 104/62 100 Nasal Cannula 07/23/22 00:15 91 H 07/23/22 02:44 36.4 C L 83 16 102/72 98 Nasal Cannula 07/22/22 23:30 Nasal Cannula 07/22/22 23:31 36.4 C L 83 20 88/51 L 96 Nasal Cannula O2 Flow Rate 07/23/22 07:57 4 07/23/22 00:15 12/13/22 02:44 4 07/22/22 23:30 4 07/22/22 23:31 4 Laboratory Results 07/22/22 19:35 07/22/22 19:35 uOsm 330, Teressa 20 Diagnostic Findings Head CTA today 1. No change compared to the prior study. 2. Calcified plaque within the bilateral carotid bifurcations resulting in 50- 60% stenosis within the proximal bilateral internal carotid arteries. 3. The bilateral vertebral arteries are patent. Neck CTA today FINDINGS: Redemonstration of the hyperdense 2.3 cm lesion within the right parie staci lobe on image 159. There is also a 9 mm hyperdense lesion within the left temporal lobe on image 142. This consistent the patient's known intracranial metastatic disease. The major dural venous sinuses appear patent. Visualized intracranial internal carotid arteries, distal vertebral arteries, and basilar artery are widely patent. There is no significant stenosis, occlusion, or aneurysm seen within the bilateral ACAs, MCAs, or freight car inspector. IMPRESSION: 1. No significant stenosis, occlusion, or aneurysm within the [place]. 2. Intracranial metastatic disease again noted. MRI brain today FINDINGS: No areas restricted diffusion to suggest an acute infarction. The midline structures are intact. Paranasal sinuses and mastoid air cells are clear. The major vascular flow-voids at the skull base are well-maintained. The ventricles and sulci demonstrate mild age-related involutional changes. No midline shift. Overall, significant improvement of the vasogenic edema surrounding the intracranial metastatic foci compared to the prior brain MRI. There are total of 3 enhancing intracranial metastatic lesions. Dominant lesion within the right posterior parietal lobe measures 1.6 cm and appears to demonstrate chronic hemorrhagic components. This is decreased in size compared to the prior study when it measured 2.2 cm. A left parietal lesion on image 16 has decreased in size and measures 5 mm, previously measuring 9 mm. The left temporal lobe lesion has also decreased in size and measures 8 mm, previously measuring 13 mm. No new intracranial lesions identified. IMPRESSION: 1. No acute infarct. 2. Decrease in size in the intracranial metastatic foci with significant improvement in the surrounding vasogenic edema. Of note, the bilateral parietal lesions demonstrate a chronic hemorrhagic component.
--- NOTE | 2022-07-23 11:05 | Neurology Consultation ---
Date of Consultation July 23, 2022 Assessment & Plan (1) Simple partial seizure disorder: (2) Metastatic cancer to brain: Plan 82-year-old female with lung cancer with mets to the brain, known history of simple partial seizures typically involving the left face and arm, now with a similar episode affecting the right upper extremity occurring overnight. She does have bilateral cerebral hemispheric metastatic disease. Last night's episode would most likely localized to the left parietal lesion. Patient's imaging findings are stable with improved vasogenic edema as compared with prior imaging. I would recommend increasing her dosage of Keppra to 1500 mg twice daily. Ho wever, if she were to have another seizure episode would then recommend adding an adjunctive medication for improved seizure control. There are many options for this purpose although would consider Vimpat or Trileptal as possible initial choices. An up-to-date EEG is not necessary at this time. Patient may follow-up with a local [facility] neurology group who has been monitoring her neurologic status. Case discussed with Dr. Saldaña History of Present Illness Reason for Consultation: Seizure-like activity, right-sided weakness Requesting Physician: Dr. Crawley Attending Physician: Javier Saldaña MD History of Present Illness The patient is an 82-year-old female with established diagnosis of seizure disorder occurring in the context of lung cancer with mets to the brain. She was recently seen in neurological consultation by Dr. Horowitz, during an admission to the [facility] this past March. She has been following with a local [facility] neurology group and is prescribed Keppra for seizure prevention. Previous treatment has included chemotherapy and brain radiation. Her seizures had typically affected the left face and arm and have been described as simple partial. Her dosage of Keppra has been increased to 1 g twice daily at the time of her last admission to the [facility]. She had presented to the emergency department on July 15 with swelling of the legs and was diagnosed with DVT, acute renal failure, multiple toe infections. Overnight, patient had symptoms concerning for focal seizure activity involving the right upper extremity characterized by uncontrolled shaking of the right upper limb, spreading from the hand proximally, lasting several minutes, followed by feeling of weakness. She has not had any further recurrence and does not recall having focal seizures affecting the right upper limb previously. A CT of the head revealed bilateral intracranial metastatic disease, similar compared with previous study done in [facility] 2021. There was some evidence of possible associated hemorrhage, also unchanged. There was improvement in the previously seen surrounding edema. No midline shift. A follow-up gadolinium-enhanced brain MRI was also completed that was negative for acute infarct. There was decreased size in the intracranial metastatic foci with significant improvement in the surrounding vasogenic edema. Bilateral parietal lesions demonstrated chronic hemorrhagic component. CTA of the head and neck revealed calcified plaque within the bilateral carotid bifurcations resulting in 50 to 60% stenosis within the proximal bilateral internal carotid arteries. I independently reviewed these images and was able to observe the multiple intracranial metastatic lesions, largest lesion within the right parietal lobe, near the cortex, there is a smaller lesion within the left temporal lobe, there may be a smaller lesion near the cortex within the left parietal lobe as well. There is pathologic blooming artifact associated with the right parietal lesion and the smaller left parietal lesion but not clearly the left temporal lesion. Allergies Allergy/AdvReac Type Severity Reaction Status Date / Time baclofen AdvReac Mild felt funny Verified 07/15/22 23:33 pembrolizumab [From Gungroo] AdvReac Mild Diarrhea Verified 07/15/22 23:33 Home Medications Medication Instructions Recorded Confirmed Type cholecalciferol (vitamin D3) 25 25 mcg PO DAILY 04/04/22 07/15/22 History mcg (1,000 unit) tablet (Vitamin D3) denosumab 60 mg/mL subcutaneous 60 mg subcut .[id number] 04/04/22 07/15/22 History syringe (Prolia) gabapentin 100 mg capsule 100 mg PO HS 04/04/22 07/15/22 History insulin aspart U-100 100 unit/mL 4 unit subcut TIDM 04/04/22 07/15/22 History (3 mL) subcutaneous pen (Novolog Flexpen U-100 Insulin aspart) levothyroxine 25 mcg tablet 25 mcg PO DAILY 04/04/22 07/15/22 History linagliptin 5 mg tablet (Tradjenta) 5 mg PO QAM 04/04/22 07/15/22 History lorazepam 0.5 mg tablet 0.5 mg PO Q8 PRN Anxiety 04/04/22 07/15/22 History metronidazole 1 % topical gel 1 applic topical BID 04/04/22 07/15/22 History omeprazole 20 mg capsule,delayed 20 mg PO DAILY 04/04/22 07/15/22 History release rosuvastatin 10 mg tablet 10 mg PO HS 04/04/22 07/15/22 History torsemide 20 mg tablet 40 mg PO QAM 04/04/22 07/15/22 History dexamethasone 4 mg tablet 4 mg PO TID #0 tabs 04/09/22 07/15/22 Rx acetaminophen 325 mg tablet 650 mg PO Q6 PRN as directed 07/15/22 07/15/22 History doxycycline hyclate 100 mg capsule 100 mg PO AMHS 07/15/22 07/15/22 History insulin glargine 100 unit/mL (3 15 unit subcut QAM 07/15/22 07/15/22 History mL) subcutaneous pen (Basaglar KwikPen U-100 Insulin) levetiracetam 1,000 mg tablet 1,000 mg PO AMHS 07/15/22 07/15/22 History lisinopril 20 mg tablet 20 mg PO QAM 07/15/22 07/15/22 History mesalamine 1.2 gram tablet,delayed 2.4 g PO QAM 07/15/22 07/15/22 History release Patient History Medical History Anemia chronic iron deficiency anemia in setting of ulcerative colitis (does receive routine iron infusions), under surveillance of [facility] hematology/GI. Arthritis Clumsiness Depression Diabetes mellitus, type 2 NIDDM Dizziness High cholesterol History of radiation therapy Hypertension Hypothyroidism Left knee DJD Left knee DJD Leg edema, left Metastasis to brain dx 09/2020. MRI imaging and radiation treatments x5. Metastatic cancer to brain Nocturnal hypoxia 2L/min NC HS Non-small cell cancer of right lung (~2016) s/p lower and middle lung lobe resection (2017), no chemo or xrt PVCs (premature ventricular contractions) Ulcerative colitis Inflectra treatments - follows with [facility] GI Surgical History History of breast biopsy History of colonoscopy History of lobectomy of lung Right VATS middle and lower lobectomy: 07/11/17: Grade 2 view, MAC#3, BANG History of repair of rotator cuff History of tonsillectomy History of tubal ligation S/P right rotator cuff repair Status post right knee replacement Family History Sister Family history of diabetes mellitus Mother Alzheimer disease Father Myocardial infarction Other Heart disease No family history of adverse response to anesthesia Social History Smoking Status: Former smoker Tobacco Type: Cigarettes Second Hand Exposure: No; Hx Alcohol Use: No Hx Substance Use: No Preferred Language: Turkmen Communication Ability: Effective Visual Impairment: No Limitations Patient Assistant Required: No Beliefs That Will Affect Care: None marital status: / Current Living Situation: Alone Current Living Situation Comment: [facility] How many Children do You have: 0 Feels Safe at Home: Yes Assistive Devices: Oxygen - at Night and Walker Review of Systems Constitutional: no fever and no chills Eyes: no blind spots and no diplopia Ear, Nose, Mouth, Throat: no hearing loss Respiratory: no cough and no dyspnea Cardiovascular: no chest pain and no palpitations Gastrointestinal: no nausea and no vomiting Genitourinary: no dysuria Musculoskeletal: no neck pain and no myalgia Integumentary: + rash (Anterior chest, purpuric lesions) Neurologic: as per Subjective / HPI Psychiatric: no depression and no anxiety Hematologic / Lymphatic: no easy bleeding and no easy bruising Exam (Neuro) Constitutional: well developed and well nourished; no acute distress Eyes: normal visual montalvo by confrontation, PERRL, normal accommodation and EOM intact bilaterally; no fundoscopic abnormality, no nystagmus and no papilledema Cardiovascular: Vessels: normal carotid upstroke; no carotid bruit Neurologic: Oriented to:: Person, Place and Time Memory: Short Term Intact and Remote Intact Attention: Span Intact and Concentration Intact Language: Naming Objects and Repeating Phrases Speech Fluency: negative Dysarthria Speech Aphasia: negative Aphasia Fund of Knowledge: Current Events, Past History and Vocabulary Cranial Nerves: Normal II (Visual montalvo full to confrontation, visual acuity normal), III, IV, (Pupils equal round reactive to light and accommodation, eye movements normal), V (Facial sensation intact), VII (There is no facial droop or weakness), VIII (Hearing intact), IX, X (Palate elevates to midline), XI (Shoulder shrug intact) and XII (Tongue protrudes to midline) Motor Strength: Normal Lower Extremities and Normal Upper Extremities; negative Pronator Drift Motor Tone: Normal Lower Extremities and Normal Upper Extremities Muscle Bulk/Involuntary Movements: No Involuntary Movements; negative Muscle Atrophy Sensation: Light Touch Intact, Pain/Temperature Intact, Vibration Intact and Proprioception Intact Coordination: Normal; negative Limited Balance, Dysdiadochokinesia, Finger-Nose Abnormal or Heel-Pepper Abnormal Deep Tendon Reflexes: Rt Triceps: 2+, Lt Triceps: 2+, Rt Biceps: 2+, Lt Biceps: 2+, Rt Brachioradialis: 2+, Lt Brachioradialis: 2+, Rt Patellar: 2+, Lt Patellar: 2+, Rt Ankle: 2+ and Lt Ankle: 2+ Special Tests: Babinski Present Details: Gait cannot be tested in the context of patient's current medical/neurological status. Results & Data ([facility]) Vital Signs (Past 12 Hours) Vital Signs Temp Pulse Pulse Resp BP Pulse Ox O2 Del Method 07/23/22 08:00 81 07/23/22 07:57 36.6 C 84 16 104/62 100 Nasal Cannula 07/23/22 00:15 91 H 07/23/22 02:44 36.4 C L 83 16 102/72 98 Nasal Cannula 07/22/22 23:30 Nasal Cannula 07/22/22 23:31 36.4 C L 83 20 88/51 L 96 Nasal Cannula O2 Flow Rate 07/23/22 08:00 07/23/22 07:57 4 07/23/22 00:15 07/23/22 02:44 4 07/22/22 23:30 4 07/22/22 23:31 4 Laboratory Results WBC 14.25, hemoglobin 11.3, hematocrit 31.3, platelet count 226, sodium 125, potassium 4.3, BUN 52, creatinine 1.42, glucose 220, magnesium 1.4, AST 51, ALT 50, Keppra level pending although previous Keppra level from this past September was 38.7. Diagnostic Findings CT of the head, CT angiography of the head and neck, and brain MRI are as described above. I independently reviewed these images. Electrocardiogram reveals sinus bradycardia with occasional PVCs. Coding Level of Care Code 80724 Initial Inpt Care Lvl 3 Diagnoses Simple partial seizure disorder G40.109 Metastatic cancer to brain C79.31
--- NOTE | 2022-07-23 11:41 | Hospitalist Progress Note ---
Date of Service July 23, 2022 Assessment & Plan (1) Seizure: Plan: History of metastatic brain disease from colon cancer Seizure has been well controlled on current dose of Keppra at 1000 mg twice daily Suffered another episode of partial seizure involving the right side last evening and was controlled with intravenous Ativan MRI, CTAs are unremarkable-MRI showing improvement of the prior edema and also the metastasis Appreciate neurology input and recommended Keppra doses have been increased to 1500 mg twice daily Will observe the patient today and likely discharge tomorrow provided kidney function and sodium level are reasonable ARF secondary to illness --initially presented with ARF which subsequently resolved Monitor creatinine response to IVF, hold lisinopril and home diuretic until creatinine back to baseline Creatinine has been normalized Hyponatremia and SASHA Creatinine has been up as of yesterday and nephrology has been consulted specially with hyponatremia Torsemide has been discontinued Getting cautious amount of intravenous fluid Will monitor PRP Appreciate nephrology input and recommendation (2) DVT (deep venous thrombosis): Plan: Hx NSCLC status post surgery status post Keytruda with brain mets status post radiation on Decadron (Outpatient brain MRI done this month showed decrease in size of right parietal metastatic lesion with slightly increased edema possibly representing postradiation effect, slight interval increase in size of left temporal metastatic lesion, stable left old central gyrus lesion. Concern for focal leptomeningeal and dural involvement.) Case discussed with Dr. Villeda (patient's [facility] hunter/oncologist) He recommends IV heparin for now and transitioning to Eliquis if tolerated by patient Follow troponin-trending down doubt any ACS Transitioned to Eliquis 10 mg twice daily on evening of 07/19/22 for 7 days, then continue 5mg BID Has been tolerating Eliquis Has been on doxycycline for colon issues and given by histologist and she wants to continue that She feels lot better and less ankle swelling has improved She is back to her baseline and wants to be discharged and awaiting for placement Medically stable to be discharged We will continue current dose of Eliquis Urinary tract infection Urine culture is growing Pseudomonas Started on Cipro 07/19/22. ECG ordered; qtc within normal range Urinary symptoms Will finish the course of antibiotic-we will stop Cipro tomorrow Type 2 diabetes mellitus with bilateral toe infections Basal bolus insulin, ISS BG goal 110-1 40, carb count coverage Multiple toe infection of 3 weeks duration on new doxycycline Rx No sepsis for now. XR of feet did not show any evidence of osteomyelitis She does not have any cellulitis and/or ulcerations involving the toes bilaterally Podiatry consulted- * wound instructions: Right leg ulcer cleansed with Betadine followed by normal saline. Application of foam dressing to right leg ulcer. Patient to continue with lower extremity compression. Socks applied over foam dressing. Appreciate wound care consult for leg ulcer dressing changes Peripheral arterial disease Status post CVA Bilateral lower extremity arterial Doppler showed extensive atherosclerotic plaque within the lower extremities with hemodynamically significant stenosis within the bilateral superficial femoral arteries more severe R>L Appreciate vascular surgery input and recommendation-no intervention at this ibrahima e If the patient requires IVC filter the vascular team can be called again HTN Stable. Continue home meds COPD lung status at baseline Hyperlipidemia on statin Rx Past tobacco abuse. DVT prophylaxis IV heparin Full code Patient sisters requesting updates from providers. Ms. Maki Banks, contact numbers [phone]. Raffi Massey, contact #[phone]. (3) Metastatic cancer to brain: Admission and Anticipated Discharge Date Admission Date: July 16, 2022 Subjective Seen and examined in 303-1. States she is feeling much better and feels that her toes look and feel improved. Denies any fever, chills, lightheadedness, headache, chest pain, nausea, vomiting, abdominal pain, dysuria, diarrhea or constipation. 07/20/2022 The patient was seen and examined in medical floor She remained stable and she is worried that she is not getting her doxycycline and or torsemide Denies any significant symptoms 07/21/2022 The patient was seen and examined in medical floor She has been much better and denies any symptoms Feels a lot better today 07/22/2022 Patient examined and seen in medical floor She remained stable and denies any significant symptoms Should be discharged tomorrow 07/23/2022 The patient was seen and examined in telemetry unit She was transferred to telemetry unit with the an episode of seizures involving the right side extremities mainly She has been feeling much better this morning No more episode since transfer and she does not have any weakness involving any side of the body Review of Systems Review of Systems: At least ten systems reviewed and negative except as noted in the HPI. Musculoskeletal: Bilateral toes infection-no definite infection except redness. Please see the picture for an assessment Physical Exam Physical Exam: Lying in bed without any acute distress Constitutional: well developed, well nourished and + thin; not ill appearing Eyes: PERRL, conjunctivae normal, anicteric sclerae ENMT: external ear and nose normal, oropharynx normal Neck: trachea midline, no thyromegaly Respiratory: no respiratory distress Auscultation: lungs clear to a uscultation bilaterally Cardiovascular: Rate/Rhythm: regular rate and regular rhythm; not tachycardic Heart Sounds: normal S1 and normal S2; no murmur Extremities: + edema (Bilateral leg swelling mostly confined to ankles) Gastrointestinal (Abdomen): Inspection/Auscultation: normal bowel sounds; abdomen not distended Percussion/Palpation: abdomen soft; abdomen nontender Musculoskeletal: Ankle: + ankle abnormal to inspection (Bilateral ankle swelling) and + skin erythema (Involving the tips of the toes) Skin: + ecchymosis Neurologic: plantar reflexes intact bilaterally and moves all extremities; no focal motor deficits and not confused Psychiatric: A+Ox3, euthymic affect Lymphatic: no cervical or axillary lymphadenopathy Results & Data Results & Data ([facility]) Vital Signs (Past 12 Hours) Vital Signs Temp Pulse Pulse Resp BP Pulse Ox O2 Del Method 07/23/22 10:41 36.3 C L 78 16 102/61 92 Room Air 07/23/22 08:00 81 07/23/22 07:57 36.6 C 84 16 104/62 100 Nasal Cannula 07/23/22 00:15 91 H 07/23/22 02:44 36.4 C L 83 16 102/72 98 Nasal Cannula O2 Flow Rate 07/23/22 10:41 07/23/22 08:00 07/23/22 07:57 4 07/23/22 00:15 07/23/22 02:44 4 Laboratory Results Short CBC 07/22/22 Range/Units 19:35 WBC 14.25 H (4.8-10.8) K/ul Hgb 11.3 L (12.0-16.0) g/dl Hct 31.3 L (34.1-44.9) % Plt Count 226 (130-400) K/uL BMP 07/22/22 19:35 Sodium 125 L Potassium 4.3 Chloride 92 L Carbon Dioxide 17 L BUN 52 H Creatinine 1.42 H Glucose 220 H Calcium 7.1 L Liver Function 07/22/22 Range/Units 19:35 Total Bilirubin 0.5 (0.2-1.0) mg/dl AST 51 H (13-39) U/L ALT 50 (7-52) U/L Alkaline Phosphatase 77 (34-104) U/L Albumin 2.7 L (3.4-5.0) gm/dl Medications Administered Current Inpatient Medications Acetaminophen (Acetaminophen 325 Mg Tab) 650 mg PO Q6 PRN PRN Reason: as directed Stop: 08/15/22 04:12 Last Admin: 07/20/22 20:03 Dose: 650 mg Apixaban (Apixaban 5 Mg Tablet) 10 mg PO BID JENNIFER Stop: 07/26/22 09:01 Last Admin: 07/23/22 08:11 Dose: 10 mg Ciprofloxacin (Ciprofloxacin 250 Mg Tab) 250 mg PO BID JENNIFER Stop: 07/23/22 14:59 Last Admin: 07/23/22 08:11 Dose: 250 mg Dexamethasone (Dexamethasone 4 Mg Tab) 4 mg PO BID JENNIFER Stop: 08/22/22 20:59 Dextrose (Dextrose 50% 50 Ml Syringe) 25 - 50 ml IV UD PRN; Protocol PRN Reason: Hypoglycemia Protocol Stop: 08/15/22 04:12 Doxycycline Hyclate (Doxycycline Hyclate 100 Mg Cap) 100 mg PO BID [facility] Stop: 08/19/22 11:44 Last Admin: 07/23/22 08:13 Dose: 100 mg Gabapentin (Gabapentin 100 Mg Cap) 100 mg PO HS JENNIFER Stop: 08/15/22 20:59 Last Admin: 07/22/22 22:13 Dose: Not Given Glucagon (Glucagon For Inj 1 Mg Vial) 1 mg SQ UD PRN; Protocol PRN Reason: Hypoglycemia Protocol Stop: 08/15/22 04:12 Glucose (Glucose 40% Gel 15 Gm Tube) 15 - 30 gm PO UD PRN; Protocol PRN Reason: Hypoglycemia Protocol Stop: 08/15/22 04:12 Glucose (Glucose 10 Tab/Tube) 4 - 8 tab PO UD PRN; Protocol PRN Reason: Hypoglycemia Treatment Stop: 08/15/22 04:12 Promethazine HCl 6.25 mg/ (Sodium Chloride) 50.25 mls @ 201 mls/hr IV Q6H PRN PRN Reason: Nausea And Vomiting Stop: 08/15/22 04:12 Lorazepam 1 mg/ Syringe 1 mls @ 2 mls/min IV Q4H PRN PRN Reason: seizure Stop: 08/21/22 19:07 Sodium Chloride (Nss 1000ml) 1,000 mls @ 75 mls/hr IV .[id number] [facility] Stop: 08/21/22 21:59 Last Admin: 07/22/22 22:59 Dose: 75 mls/hr Insulin Aspart (Insulin Aspart Per Unit) 0 units SC ACHS [facility] Stop: 08/15/22 04:12 Last Admin: 07/23/22 08:09 Dose: Not Given Insulin Glargine (Lantus Per Unit Charge) 15 units SQ HS [facility] Stop: 08/15/22 20:59 Last Admin: 07/22/22 22:57 Dose: 15 units Levetiracetam (Levetiracetam 500 Mg Tab) 1,500 mg PO AMHS [facility] Stop: 08/22/22 20:59 Levothyroxine Sodium (Levothyroxine Sodium 25 Mcg Tablet) 25 mcg PO DAILYBB [facility] Stop: 08/15/22 06:29 Last Admin: 07/23/22 05:59 Dose: 25 mcg Lidocaine (Lidocaine 5% 1 Patch) 1 patch TD HS [facility] Stop: 08/17/22 20:59 Last Admin: 07/22/22 22:31 Dose: Not Given Lorazepam (Lorazepam 0.5 Mg Tab) 0.5 mg PO Q8 PRN PRN Reason: Anxiety Stop: 08/15/22 04:12 Miscellaneous (Carbohydrates For Hypoglycemia ) 15 - 30 gm PO UD PRN PRN Reason: Hypoglycemia Protocol Stop: 08/15/22 04:12 Miscellaneous (Remove Lidoderm Patch) 1 each N/A DAILY@0900 [facility] Stop: 08/18/22 08:59 Last Admin: 07/23/22 08:14 Dose: 1 each Oxycodone HCl (Oxycodone Hcl Ir 5 Mg Tab (Immediate Release)) 5 mg PO Q4H PRN PRN Reason: Pain Stop: 07/30/22 04:12 Last Admin: 07/23/22 08:20 Dose: 5 mg Pantoprazole Sodium (Pantoprazole 40 Mg Tab) 40 mg PO DAILY [facility] Stop: 08/15/22 08:59 Last Admin: 07/23/22 08:13 Dose: 40 mg Torsemide (Torsemide 10 Mg Tab) 20 mg PO [facility] Stop: 08/19/22 11:14 Last Admin: 07/23/22 08:12 Dose: 20 mg
[2022-07-23 13:26] LABS: BUN Creatinine Ratio 56.8 (10-20); Calcium 7.6 mg/dl (8.5-10.1); Creatinine Clr Calc Pharmacy 42.8 ml/min; Est GFR (African American) 79.5 ml/min; Est GFR (Non-African American) 68.6 ml/min; Potassium 3.7 mmol/L (3.5-5.1)
[2022-07-23] MEDS: SODIUM CHLORIDE 0.9% 1000ML 1,000 ML IV SCH (13:33)
[2022-07-23 15:51] LABS: Appearance Urine Clear (Clear); Bilirubin Urine Negative (Negative); Blood Urine Negative (Negative); Color Urine Yellow; Glucose Urine UA Negative (Negative); Ketones Urine Negative (Negative); Leukocyte Esterase Urine Negative (Negative); Nitrite Urine Negative (Negative); Protein Urine Negative (Negative); Specific Gravity Urine 1.012 (1.000-1.030); Urobilinogen Urine Negative (Negative); pH Urine 5.5 (4.5-7.5)
[2022-07-23] MEDS: GABAPENTIN 100 MG CAP PO SCH (21:38)
[2022-07-23] MEDS: LIDOCAINE 5% 1 PATCH TD SCH (21:39)
[2022-07-23] MEDS: LANTUS PER UNIT CHARGE SQ SCH (21:57)
[2022-07-24] MEDS: SODIUM CHLORIDE 0.9% 1000ML 1,000 ML IV SCH ×2 (00:52→14:46)
[2022-07-24] MEDS: LEVOTHYROXINE SODIUM 25 MCG TABLET PO SCH (05:52)
[2022-07-24 06:35] LABS: Hematocrit (blood only) 30.7 % (34.1-44.9); Hemoglobin 10.7 g/dl (12.0-16.0); Mean Corpuscular Hemoglobin 30.3 pg (25.0-34.0); Mean Corpuscular Hgb Conc 34.9 g/dL (32.0-36.0); Mean Platelet Volume 10.3 fL (9.4-12.3); Nucleated RBC # (auto) 0.05 K/uL (0-0); Nucleated RBC % (auto) 0.5 %; Platelet Count 217 K/uL (130-400); RDW Coefficient of Variation 18.4 % (11.5-14.5); RDW Standard Deviation 57.3 fL (36.4-46.3); Red Blood Count 3.53 M/uL (3.93-5.22)
[2022-07-24 07:00] LABS: Basophils # (auto) 0.04 K/uL (0-0.2); Basophils % (auto) 0.4 %; Echinocytes 1+; Eosinophils # (auto) 0.04 K/uL (0-0.50); Eosinophils % (auto) 0.4 %; Immature Granulocytes # (auto) 0.69 K/uL (0.00-0.02); Lymphocytes # (auto) 0.31 K/uL (1.2-3.4); Lymphocytes % (auto) 3.1 %; Monocytes # (auto) 0.12 K/uL (0.24-0.82); Monocytes % (auto) 1.2 %; Neutrophils % (auto) 87.9 %; Polychromasia 1+
[2022-07-24] MEDS: CARBOHYDRATES FOR HYPOGLYCEMIA PO PRN (07:56)
[2022-07-24] MEDS ORDERED: PHARMACY GLYCEMIC MGMT CONSULT PRN (08:06)
[2022-07-24] MEDS: levETIRAcetam 500 MG TAB PO SCH ×2 (08:10→21:31)
[2022-07-24] MEDS: dexAMETHasone 4 MG TAB PO SCH ×2 (08:11→21:32)
[2022-07-24] MEDS: PANTOprazole 40 MG TAB PO SCH (08:11)
[2022-07-24] MEDS: TORSEMIDE 10 MG TAB PO SCH (08:11)
[2022-07-24] MEDS: DOXYCYCLINE HYCLATE 100 MG CAP PO SCH ×2 (08:11→21:31)
[2022-07-24] MEDS: APIXABAN 5 MG TABLET PO SCH ×2 (08:11→21:32)
[2022-07-24] MEDS: INSULIN ASPART PER UNIT SC SCH ×4 (09:59→21:23)
--- NOTE | 2022-07-24 10:00 | Pharmacy Report ---
Pharmacy Glycemic Short Note 2 - Date of Service July 24, 2022 - Glycemic Short BSG Results (Last 24 hours): 07/23/22 07/23/22 07/23/22 11:00 11:47 16:12 Glucose 148 H POC Glucose 137 H 223 H 07/23/22 07/24/22 07/24/22 20:27 07:48 07:50 Glucose POC Glucose 151 H 57 L* 61 L* 07/24/22 08:13 Glucose POC Glucose 78 OUTPATIENT ANTIDIABETIC REGIMEN: * Basaglar u-100 Kwik Pen: 15 units SQ QAM * Novolo units SQ TIDM * Tradjenta 5mg PO QAM ASSESSMENT: * Fatoumata is a 82 year old female with type 2 diabetes with an admission characterized by ARF and seizure. Pertinent stressors include the chronic use of Decadron 4mg TID, decreased 07/23/22 to BID. * Decreased TDD of Decadron and downtrending AM fasting BSG's suggest that Lantus dose may require reduction to avoid AM hypoglycemia. * Patient is tolerating an oral diet has been maintained on a bolus regimen of 25unit CF -15unit CR. Prandial BSG's have been above goal, will tighten carb ratio. PLAN FOR INPATIENT GLYCEMIC CONTROL: * Hold outpatient oral diabetes medications * Basal insulin * Lantus 10 units SQ QPM * Bolus insulin * NovoLog per scale ACHS or Q6hrs while NPO * Goal Range: Low 110 mg/dL - High 140 mg/dL * Correction Factor: 25 mg/dL/unit * Nutritional / Prandial insulin per carb ratio of 1 unit per 10 grams CHO consumed
[2022-07-24 10:14] LABS: Albumin Globulin Ratio 1.2 (0.9-2); Albumin Level 2.5 gm/dl (3.4-5.0); BUN Creatinine Ratio 59.3 (10-20); Bilirubin,Total 0.5 mg/dl (0.2-1.0); Calcium 7.3 mg/dl (8.5-10.1); Creatinine Clr Calc Pharmacy 61.3 ml/min; Est GFR (African American) 100.3 ml/min; Est GFR (Non-African American) 86.6 ml/min; Globulin 2.1 gm/dl (2.5-4.0); Magnesium 1.5 mg/dl (1.7-2.4); Potassium 3.8 mmol/L (3.5-5.1); Total Protein 4.6 gm/dl (6.0-8.3)
--- NOTE | 2022-07-24 11:24 | Nephrology Progress Note ---
Date of Service July 24, 2022 Assessment & Plan (1) Hyponatremia: Plan: Presenting sodium 133>125 14 hrs later yesterday evening. I/O imperfectly recorded here but she is likely quite positive. no prior hx of sNa <130 in [facility]. unclear if change in sodium had a role in her seizure or not, though it's possible >daily bmp -lower NS rate to 40 ml/hr for another 12hrs then stop -torsemide has been being given ongoing (2) Acute renal failure: Plan: prerenal but recurrent stage 2 SASHA w/ baseline creatinine 0.7-0.8. presented 07/16 w/ creat 1.5, which trended to baseline 48 hrs later. Creat 0.7 on 07/19. Then next bmp on 07/22 w/ creat 1.2, up to 1.4 07/24 > improved /resolved w/ IVF. UA bland pt still relatively hypotensive this time compared to other admissions though SBP improving somewhat. she has had IV contrast and still on torsemide. prerenal ATN> improved/ renal function back to baseline w/ IVF -low threshold for renal imaging pending clinical course -avoid further IV contrast -daily bmp -I meant to hold torsemide today but missed order; she's had med and improving. cont torsemide daily for now -cont to hold outpatient ACEI -lowered NS rate to 40 ml/hr given hyponatremia/lung dz then stop after 12 hrs lower dose>> sNa stable/a bit improved and mild hyponatremia (3) Hypomagnesemia: Plan: w/ possibly secondary hypocalcemia; had 2 gm IV mag 07/22 for mag 1.4. PTH appropriately high, D stores low >start D3 5000 units daily >start mag ox 400 mg daily >daily mag, bmp Admission and Anticipated Discharge Date Admission Date: July 16, 2022 Subjective repeatedly denies worse sob. frustrated she has no galaviz and at getting up/down to bedside commode Review of Systems Review of Systems: All systems reviewed & are unremarkable except as noted in Subjective Physical Exam Constitutional: well developed, well nourished, + frail appearing and cooperative; no acute distress Eyes: EOM intact bilaterally ENMT: Ears: no external ear abnormality Nose: no external nose abnormality Mouth: + dry oral mucous membranes Neck: no nuchal rigidity Respiratory: normal respiratory effort Auscultation: + diminished lung sounds Cardiovascular: Rate/Rhythm: regular rate and regular rhythm Extremities: + edema (2+ distal LE/ 3+ pedal) Gastrointestinal (Abdomen): Inspection/Auscultation: normal bowel sounds Percussion/Palpation: abdomen soft; abdomen nontender Musculoskeletal: Extremities: strength 5/5 throughout Skin: no rashes, warm and dry Neurologic: escoto, generalized weakness; fluent speech Psychiatric: Orientation: oriented x 3 (solightly slow processing) Results & Data ([facility]) Vital Signs (Past 12 Hours) Vital Signs Temp Pulse Pulse Pulse Resp BP Pulse Ox 07/24/22 06:06 58 L 07/24/22 08:26 36.7 C 80 17 121/57 L 93 07/24/22 03:11 36.6 C 72 16 112/57 L 90 07/23/22 23:30 07/23/22 23:22 36.6 C 87 16 94/59 L 91 O2 Del Method 07/24/22 06:06 07/24/22 08:26 Room Air 07/24/22 03:11 Room Air 07/23/22 23:30 Room Air 07/23/22 23:22 Room Air Laboratory Results 07/24/22 06:03 07/24/22 09:04
[2022-07-24] MEDS: MAGNESIUM OXIDE 400 MG TAB PO SCH (12:33)
[2022-07-24] MEDS: CHOLECALCIFEROL 5,000 UNITS 125 MCG TAB PO SCH (12:33)
--- NOTE | 2022-07-24 15:46 | Hospitalist Progress Note ---
Date of Service July 24, 2022 Assessment & Plan (1) Seizure: Plan: per Dr. 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 Seizure has been well controlled on current dose of Keppra at 1000 mg twice daily Suffered another episode of partial seizure involving the right side last evening and was controlled with intravenous Ativan MRI, CTAs are unremarkable-MRI showing improvement of the prior edema and also the metastasis Appreciate neurology input and recommended Keppra doses have been increased to 1500 mg twice daily Will observe the patient today and likely discharge tomorrow provided kidney function and sodium level are reasonable -- no recurrence of seizure continue Keppra 1500mg BID ARF secondary to illness --initially presented with ARF which subsequently resolved Monitor creatinine response to IVF, hold lisinopril and home diuretic until creatinine back to baseline Creatinine has been normalized -- crea 0.5 on IV fluids Nephro on board Hyponatremia and SASHA Creatinine has been up as of yesterday and nephrology has been consulted specially with hyponatremia Torsemide has been discontinued Getting cautious amount of intravenous fluid Will monitor PRP Appreciate nephrology input and recommendation -- Na 125 --> 130 improving (2) DVT (deep venous thrombosis): Plan: Hx NSCLC status post surgery status post Keytruda with brain mets status post radiation on Decadron (Outpatient brain MRI done this month showed decrease in size of right parietal metastatic lesion with slightly increased edema possibly representing postradiation effect, slight interval increase in size of left temporal metastatic lesion, stable left old central gyrus lesion. Concern for focal leptomeningeal and dural involvement.) Case discussed with Dr. Villeda (patient's [facility] hoop coiler/oncologist) He recommends IV heparin for now and transitioning to Eliquis if tolerated by patient Follow troponin-trending down doubt any ACS Transitioned to Eliquis 10 mg twice daily on evening of 07/19/22 for 7 days, then continue 5mg BID Has been tolerating Eliquis Has been on doxycycline for colon issues and given by electrical/instrument technician and she wants to continue that She feels lot better and less ankle swelling has improved She is back to her baseline and wants to be discharged and awaiting for placement Medically stable to be discharged We will continue current dose of Eliquis -- tolerating Eliquis well Urinary tract infection Urine culture is growing Pseudomonas Started on Cipro 07/19/22. ECG ordered; qtc within normal range Urinary symptoms Will finish the course of antibiotic-we will stop Cipro tomorrow -- last day of Cipro today Type 2 diabetes mellitus with bilateral toe infections Basal bolus insulin, ISS BG goal 110-1 40, carb count coverage Multiple toe infection of 3 weeks duration on new doxycycline Rx No sepsis for now. XR of feet did not show any evidence of osteomyelitis She does not have any cellulitis and/or ulcerations involving the toes bilaterally Podiatry consulted- * wound instructions: Right leg ulcer cleansed with Betadine followed by normal saline. Application of foam dressing to right leg ulcer. Patient to continue with lower extremity compression. Socks applied over foam dressing. Appreciate wound care consult for leg ulcer dressing changes -- denies pain on her feet Peripheral arterial disease Status post CVA Bilateral lower extremity arterial Doppler showed extensive atherosclerotic plaque within the lower extremities with hemodynamically significant stenosis within the bilateral superficial femoral arteries more severe R>L Appreciate vascular surgery input and recommendation-no intervention at this time If the patient requires IVC filter the vascular team can be called again HTN Stable. Continue home meds COPD lung status at baseline Hyperlipidemia on statin Rx Past tobacco abuse. DVT prophylaxis Valerie Full code (3) Metastatic cancer to brain: Admission and Anticipated Discharge Date Admission Date: July 16, 2022 Subjective Follow-up for seizure, etc. seen resting bed, comfortable, not in distress States she feels fine overall No recurrence of seizures No abdominal pain, nausea vomiting, shortness of breath, chest pain, no other symptoms Review of Systems Review of Systems: all noted and negative except for above Physical Exam Physical Exam: General- oriented x 3, not in distress, speaks in sentences with no effort or accessory muscle use Eyes- anicteric Neck- no JVD Lungs- clear BS bilaterally, no rales/wheezes Heart- normal rate, regular rhythm; no murmurs Abdomen- normal bowel sounds, nondistended, soft, nontender Extremities- no pretibial edema, no calf tenderness Neuro- alert, oriented x 3; no gross focal neurologic deficits Skin- warm & dry Results & Data Results & Data ([facility]) Vital Signs (Past 12 Hours) Vital Signs Temp Pulse Pulse Pulse Resp BP Pulse Ox 07/24/22 14:04 83 07/24/22 14:44 36.6 C 83 16 121/60 91 07/24/22 08:09 07/24/22 06:06 58 L 07/24/22 08:26 36.7 C 80 17 121/57 L 93 O2 Del Method 07/24/22 14:04 07/24/22 14:44 Room Air 07/24/22 08:09 Room Air 07/24/22 06:06 07/24/22 08:26 Room Air all noted and reviewed including below
[2022-07-24] MEDS ORDERED: LANTUS PER UNIT CHARGE SQ SCH (21:00)
[2022-07-24] MEDS: POLYETHYLENE (MIRALAX) 17 GM PACK PO PRN (21:26)
[2022-07-24] MEDS: LIDOCAINE 5% 1 PATCH TD SCH (21:30)
[2022-07-24] MEDS: GABAPENTIN 100 MG CAP PO SCH (21:32)
[2022-07-25] MEDS: ACETAMINOPHEN 325 MG TAB PO PRN (01:23)
[2022-07-25] MEDS: LEVOTHYROXINE SODIUM 25 MCG TABLET PO SCH (05:54)
[2022-07-25 07:23] LABS: BUN Creatinine Ratio 63.8 (10-20); Calcium 7.4 mg/dl (8.5-10.1); Creatinine Clr Calc Pharmacy 62.4 ml/min; Est GFR (African American) 100.9 ml/min; Est GFR (Non-African American) 87.1 ml/min; Estimated Average Glucose 214 mg/dl; Hemoglobin A1C 9.1 % (4.5-5.6); Magnesium 1.6 mg/dl (1.7-2.4); Potassium 3.7 mmol/L (3.5-5.1)
[2022-07-25] MEDS ORDERED: MAGNESIUM SULFATE / D5W 1 GM/100 ML BAG IV ONE (07:31)
[2022-07-25] MEDS: dexAMETHasone 4 MG TAB PO SCH ×2 (09:04→20:45)
[2022-07-25] MEDS: levETIRAcetam 500 MG TAB PO SCH ×2 (09:05→20:45)
[2022-07-25] MEDS: PANTOprazole 40 MG TAB PO SCH (09:05)
[2022-07-25] MEDS: TORSEMIDE 10 MG TAB PO SCH (09:05)
[2022-07-25] MEDS: MAGNESIUM OXIDE 400 MG TAB PO SCH ×2 (09:05→20:46)
[2022-07-25] MEDS: APIXABAN 5 MG TABLET PO SCH ×2 (09:05→20:45)
[2022-07-25] MEDS: DOXYCYCLINE HYCLATE 100 MG CAP PO SCH ×2 (09:05→20:46)
[2022-07-25] MEDS: CHOLECALCIFEROL 5,000 UNITS 125 MCG TAB PO SCH (09:05)
[2022-07-25] MEDS: INSULIN ASPART PER UNIT SC SCH ×4 (09:07→21:59)
--- NOTE | 2022-07-25 09:50 | Nephrology Progress Note ---
Date of Service July 25, 2022 Assessment & Plan (1) Hyponatremia: Plan: Presenting sodium 133>125 14 hrs later 07/22 evening. I/O imperfectly recorded here but she is likely quite positive. no prior hx of sNa <130 in [facility]. unclear if change in sodium had a role in her seizure or not, though it's possible >daily bmp -continue torsemide current dose -added K po 20 mEq daily (2) Acute renal failure: Plan: resolved prerenal but recurrent stage 2 SASHA w/ baseline creatinine 0.7-0.8. presented 07/16 w/ creat 1.5, which trended to baseline 48 hrs later. Creat 0.7 on 07/19. Then next bmp on 07/22 w/ creat 1.2, up to 1.4 07/24 > improved /resolved w/ IVF. UA bland pt earlier in admission relatively hypotensive though SBP improving now. she has had IV contrast and still on torsemide. prerenal ATN> improved/ renal function back to baseline w/ IVF -avoid further IV contrast -daily bmp -cont torsemide daily for now -cont to hold outpatient ACEI (3) Hypomagnesemia: Plan: w/ possibly secondary hypocalcemia; had 2 gm IV mag 07/22 for mag 1.4. PTH appropriately high, D stores low >cont D3 5000 units daily >increased mag ox to 400 mg bid from daily >daily mag, bmp Admission and Anticipated Discharge Date Admission Date: July 16, 2022 Subjective denies sob or worsening edema. denies voiding concerns Review of Systems Review of Systems: All systems reviewed & are unremarkable except as noted in Subjective Physical Exam Constitutional: well developed, well nourished, + frail appearing and cooperative; no acute distress Eyes: EOM intact bilaterally ENMT: Ears: no external ear abnormality Nose: no external nose abnormality Mouth: + dry oral mucous membranes Neck: no nuchal rigidity Respiratory: normal respiratory effort Auscultation: + diminished lung sounds (daly R base) Cardiovascular: Rate/Rhythm: regular rate and regular rhythm Extremities: + edema (2+ distal LE/ 3+ pedal; none dependent) Gastrointestinal (Abdomen): Inspection/Auscultation: normal bowel sounds Percussion/Palpation: abdomen soft; abdomen nontender Musculoskeletal: Extremities: strength 5/5 throughout Skin: no rashes, warm and dry Psychiatric: Orientation: oriented x 3 (solightly slow processing) Results & Data ([facility]) Vital Signs (Past 12 Hours) Vital Signs Temp Pulse Pulse Resp BP Pulse Ox O2 Del Method 07/25/22 07:08 36.5 C 67 17 125/68 91 Room Air 07/25/22 00:47 36.9 C 77 20 136/68 93 Room Air 07/24/22 22:03 83 Laboratory Results 07/24/22 06:03 07/25/22 06:17
[2022-07-25] MEDS ORDERED: POTASSIUM CHLORIDE 10 MEQ TABCR PO SCH (10:00)
[2022-07-25] MEDS: POTASSIUM CHLORIDE CRTAB 20 MEQ TABCR PO SCH (11:08)
--- NOTE | 2022-07-25 12:43 | Pharmacy Report ---
Pharmacy Glycemic Short Note 2 - Date of Service July 25, 2022 - Glycemic Short BSG Results (Last 24 hours): 07/24/22 07/24/22 07/25/22 16:28 20:47 06:17 Glucose 66 L POC Glucose 257 H 197 H 07/25/22 07/25/22 07:12 11:35 Glucose POC Glucose 78 196 H OUTPATIENT ANTIDIABETIC REGIMEN: * Basaglar 15 units SC AM * Novolog 4 units SC TIDM * Tradjenta 5mg PO AM * HbA1c: 9.1% (07/25/22) ASSESSMENT: 07/25: * Patient received 27 units of insulin yesterday, 10 units basal + 17 units bolus. BSGs were: 53-950-946-197 mg/dL. * Fasting BSG this AM was 78 mg/dL - well controlled but well below goal. Lantus was decreased yesterday, and this fasting BSG is actually trending upwards. Therefore, no change to Lantus today. * There was a trend of postprandial hyperglycemia yesterday. Will tighten both CF and CR today. 07/24: * Fatoumata is a 82 year old female with type 2 diabetes with an admission characterized by ARF and seizure. Pertinent stressors include the chronic use of Decadron 4mg TID, decreased 07/23/22 to BID. * Decreased TDD of Decadron and downtrending AM fasting BSG's suggest that Lantus dose may require reduction to avoid AM hypoglycemia. * Patient is tolerating an oral diet has been maintained on a bolus regimen of 25unit CF -15unit CR. Prandial BSG's have been above goal, will tighten carb ratio. PLAN FOR INPATIENT GLYCEMIC CONTROL: * Hold outpatient oral diabetes medications * Basal insulin * Lantus 10 units SC PM * Bolus insulin * NovoLog per scale ACHS or Q6hrs while NPO * Goal Range: Low 110 mg/dL - High 140 mg/dL * Correction Factor: 20 mg/dL/unit * Nutritional / Prandial insulin per carb ratio of 1 unit per 7 grams CHO consumed
--- NOTE | 2022-07-25 12:57 | Hospitalist Progress Note ---
Date of Service July 25, 2022 Assessment & Plan (1) Seizure: Plan: per Dr. 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 Seizure has been well controlled on current dose of Keppra at 1000 mg twice daily Suffered another episode of partial seizure involving the right side last evening and was controlled with intravenous Ativan MRI, CTAs are unremarkable-MRI showing improvement of the prior edema and also the metastasis Appreciate neurology input and recommended Keppra doses have been increased to 1500 mg twice daily Will observe the patient today and likely discharge tomorrow provided kidney function and sodium level are reasonable -- no recurrence of seizure continue Keppra 1500mg BID - stable ARF secondary to illness --initially presented with ARF which subsequently resolved Monitor creatinine response to IVF, hold lisinopril and home diuretic until creatinine back to baseline Creatinine has been normalized -- crea 0.5 on IV fluids Nephro on board Hyponatremia and SASHA Creatinine has been up as of yesterday and nephrology has been consulted specially with hyponatremia Torsemide has been discontinued Getting cautious amount of intravenous fluid Will monitor PRP Appreciate nephrology input and recommendation -- Na 125 --> 130--> 133 improving (2) DVT (deep venous thrombosis): Plan: Hx NSCLC status post surgery status post Keytruda with brain mets status post radiation on Decadron (Outpatient brain MRI done this month showed decrease in size of right parietal metastatic lesion with slightly increased edema possibly representing postradiation effect, slight interval increase in size of left temporal metastatic lesion, stable left old central gyrus lesion. Concern for focal leptomeningeal and dural involvement.) Case discussed with Dr. Villeda (patient's [facility] rn assessment/oncologist) He recommends IV heparin for now and transitioning to Eliquis if tolerated by patient Follow troponin-trending down doubt any ACS Transitioned to Eliquis 10 mg twice daily on evening of 07/19/22 for 7 days, then continue 5mg BID Has been tolerating Eliquis Has been on doxycycline for colon issues and given by dowel sticker operator and she wants to continue that She feels lot better and less ankle swelling has improved She is back to her baseline and wants to be discharged and awaiting for placemen t Medically stable to be discharged We will continue current dose of Eliquis -- tolerating Eliquis well Urinary tract infection Urine culture is growing Pseudomonas Started on Cipro 07/19/22. ECG ordered; qtc within normal range Urinary symptoms Will finish the course of antibiotic-we will stop Cipro tomorrow --Patient has completed course of ciprofloxacin Type 2 diabetes mellitus with bilateral toe infections Basal bolus insulin, ISS BG goal 110-1 40, carb count coverage Multiple toe infection of 3 weeks duration on new doxycycline Rx No sepsis for now. XR of feet did not show any evidence of osteomyelitis She does not have any cellulitis and/or ulcerations involving the toes bilaterally Podiatry consulted- * wound instructions: Right leg ulcer cleansed with Betadine followed by normal saline. Application of foam dressing to right leg ulcer. Patient to continue with lower extremity compression. Socks applied over foam dressing. Appreciate wound care consult for leg ulcer dressing changes -- denies pain on her feet Peripheral arterial disease Status post CVA Bilateral lower extremity arterial Doppler showed extensive atherosclerotic plaque within the lower extremities with hemodynamically significant stenosis within the bilateral superficial femoral arteries more severe R>L Appreciate vascular surgery input and recommendation-no intervention at this time If the patient requires IVC filter the vascular team can be called again HTN Stable. Continue home meds COPD lung status at baseline Hyperlipidemia on statin Rx Past tobacco abuse. DVT prophylaxis Eliquis Full code (3) Metastatic cancer to brain: Admission and Anticipated Discharge Date Admission Date: July 16, 2022 Subjective Follow-up for seizure, UTI, etc. Seen resting in bed, sitting up and watching TV, in good spirits States she feels fine overall No recurrence of seizures No shortness of breath, chest pain, palpitations, dizziness No other symptom Review of Systems Review of Systems: all noted and negative except for above Physical Exam Physical Exam: General- oriented x 3, not in distress, speaks in sentences with no effort or accessory muscle use Eyes- anicteric Neck- no JVD Lungs- clear breath sounds bilaterally Heart- normal rate, regular rhythm; no murmurs Abdomen- normal bowel sounds, nondistended, soft, no tenderness Extremities- no pretibial edema, no calf tenderness Neuro- alert, oriented x 3; no gross focal neurologic deficits Skin- warm & dry Results & Data Results & Data ([facility]) Vital Signs (Past 12 Hours) Vital Signs Temp Pulse Pulse Resp BP Pulse Ox O2 Del Method 07/25/22 09:04 Room Air 07/25/22 11:18 36.6 C 73 18 109/76 94 Room Air 07/25/22 06:10 70 07/25/22 07:08 36.5 C 67 17 125/68 91 Room Air all noted and reviewed including below
[2022-07-25] MEDS: POLYETHYLENE (MIRALAX) 17 GM PACK PO PRN (13:09)
[2022-07-25] MEDS: CARBOHYDRATES FOR HYPOGLYCEMIA PO PRN (16:20)
[2022-07-25] MEDS: GABAPENTIN 100 MG CAP PO SCH (20:45)
[2022-07-25] MEDS: LIDOCAINE 5% 1 PATCH TD SCH (20:45)
[2022-07-25] MEDS ORDERED: LANTUS PER UNIT CHARGE SQ SCH (21:30)
[2022-07-26] MEDS: LEVOTHYROXINE SODIUM 25 MCG TABLET PO SCH (06:11)
[2022-07-26 08:32] LABS: Calcium 7.5 mg/dl (8.5-10.1); Creatinine Clr Calc Pharmacy 61.3 ml/min; Est GFR (African American) 100.3 ml/min; Est GFR (Non-African American) 86.6 ml/min; Magnesium 1.9 mg/dl (1.7-2.4); Potassium 4.4 mmol/L (3.5-5.1)
[2022-07-26] MEDS: TORSEMIDE 10 MG TAB PO SCH (08:35)
[2022-07-26] MEDS: CHOLECALCIFEROL 5,000 UNITS 125 MCG TAB PO SCH (08:35)
[2022-07-26] MEDS: APIXABAN 5 MG TABLET PO SCH ×2 (08:36→20:25)
[2022-07-26] MEDS: MAGNESIUM OXIDE 400 MG TAB PO SCH ×2 (08:36→20:27)
[2022-07-26] MEDS: DOXYCYCLINE HYCLATE 100 MG CAP PO SCH ×2 (08:36→20:26)
[2022-07-26] MEDS: PANTOprazole 40 MG TAB PO SCH (08:36)
[2022-07-26] MEDS: POTASSIUM CHLORIDE CRTAB 20 MEQ TABCR PO SCH (08:36)
[2022-07-26] MEDS: levETIRAcetam 500 MG TAB PO SCH ×2 (08:36→20:26)
[2022-07-26] MEDS: dexAMETHasone 4 MG TAB PO SCH ×2 (08:36→20:26)
[2022-07-26] MEDS: INSULIN ASPART PER UNIT SC SCH ×4 (08:40→21:08)
--- NOTE | 2022-07-26 12:35 | Pharmacy Report ---
Pharmacy Glycemic Short Note 2 - Date of Service July 26, 2022 - Glycemic Short BSG Results (Last 24 hours): 07/25/22 07/25/22 07/25/22 16:14 16:15 16:36 Glucose POC Glucose 59 L* 54 L* 83 07/25/22 07/26/22 07/26/22 20:53 07:26 07:41 Glucose 74 POC Glucose 112 H 77 07/26/22 11:35 Glucose POC Glucose 193 H OUTPATIENT ANTIDIABETIC REGIMEN: * Basaglar 15 units SC AM * Novolog 4 units SC TIDM * Tradjenta 5mg PO AM * HbA1c: 9.1% (07/25/22) ASSESSMENT: 07/26: * Fatoumata received a total of 21 units of insulin yesterday, 10 units basal + 17 units bolus. BSGs were: 74-847-43-112 mg/dL. Fortunately, patient was asymptomatic with hypoglycemic episode at dinnertime. Did require 15 grams of carbs to bring BSG up. HS Lantus and carb ratio were decreased at that time. * Fasting BSG this AM was 77 mg/dL. Will reduce HS Lantus further today. Loosening Novolog parameters as well. Remains on Dexamethasone 4 mg PO BID. 07/25: * Patient received 27 units of insulin yesterday, 10 units basal + 17 units bolus. BSGs were: 49-237-253-197 mg/dL. * Fasting BSG this AM was 78 mg/dL - well controlled but well below goal. Lantus was decreased yesterday, and this fasting BSG is actually trending upwards. Therefore, no change to Lantus today. * There was a trend of postprandial hyperglycemia yesterday. Will tighten both CF and CR today. 07/24: * Fatoumata is a 82 year old female with type 2 diabetes with an admission characterized by ARF and seizure. Pertinent stressors include the chronic use of Decadron 4mg TID, decreased 07/23/22 to BID. * Decreased TDD of Decadron and downtrending AM fasting BSG's suggest that Lantus dose may require reduction to avoid AM hypoglycemia. * Patient is tolerating an oral diet has been maintained on a bolus regimen of 25unit CF -15unit CR. Prandial BSG's have been above goal, will tighten carb ratio. PLAN FOR INPATIENT GLYCEMIC CONTROL: * Hold outpatient oral diabetes medications * Basal insulin * Lantus 5 units SC PM * Bolus insulin * NovoLog per scale ACHS or Q6hrs while NPO * Goal Range: Low 110 mg/dL - High 140 mg/dL * Correction Factor: 25 mg/dL/unit * Nutritional / Prandial insulin per carb ratio of 1 unit per 10 grams CHO consumed
[2022-07-26] MEDS: POLYETHYLENE (MIRALAX) 17 GM PACK PO PRN (13:02)
[2022-07-26] MEDS ORDERED: MAGNESIUM HYDROXIDE SUSP 30 ML UDC PO ONE (15:30)
--- NOTE | 2022-07-26 17:36 | Hospitalist Progress Note ---
Date of Service July 26, 2022 Assessment & Plan (1) Seizure: Plan: per Dr. 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 Seizure has been well controlled on current dose of Keppra at 1000 mg twice daily Suffered another episode of partial seizure involving the right side last evening and was controlled with intravenous Ativan MRI, CTAs are unremarkable-MRI showing improvement of the prior edema and also the metastasis Appreciate neurology input and recommended Keppra doses have been increased to 1500 mg twice daily Will observe the patient today and likely discharge tomorrow provided kidney function and sodium level are reasonable -- no recurrence of seizure continue Keppra 1500mg BID - stable ARF secondary to illness --initially presented with ARF which subsequently resolved Monitor creatinine response to IVF, hold lisinopril and home diuretic until creatinine back to baseline Creatinine has been normalized -- crea 0.5 given IV fluids Nephro on board Hyponatremia and SASHA Creatinine has been up as of yesterday and nephrology has been consulted specially with hyponatremia Torsemide has been discontinued Getting cautious amount of intravenous fluid Will monitor PRP Appreciate nephrology input and recommendation -- Na 125 --> 130--> 134 improving (2) DVT (deep venous thrombosis): Plan: Hx NSCLC status post surgery status post Keytruda with brain mets status post radiation on Decadron (Outpatient brain MRI done this month showed decrease in size of right parietal metastatic lesion with slightly increased edema possibly representing postradiation effect, slight interval increase in size of left temporal metastatic lesion, stable left old central gyrus lesion. Concern for focal leptomeningeal and dural involvement.) Case discussed with Dr. 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 ECG ordered; qtc within normal range Urinary symptoms Will finish the course of antibiotic-we will stop Cipro tomorrow --Patient has completed course of ciprofloxacin Type 2 diabetes mellitus with bilateral toe infections Basal bolus insulin, ISS BG goal 110-1 40, carb count coverage Multiple toe infection of 3 weeks duration on new doxycycline Rx No sepsis for now. XR of feet did not show any evidence of osteomyelitis She does not have any cellulitis and/or ulcerations involving the toes bilaterally Podiatry consulted- * wound instructions: Right leg ulcer cleansed with Betadine followed by normal saline. Application of foam dressing to right leg ulcer. Patient to continue with lower extremity compression. Socks applied over foam dressing. Appreciate wound care consult for leg ulcer dressing changes -- denies pain on her feet Peripheral arterial disease Status post CVA Bilateral lower extremity arterial Doppler showed extensive atherosclerotic plaque within the lower extremities with hemodynamically significant stenosis within the bilateral superficial femoral arteries more severe R>L Appreciate vascular surgery input and recommendation-no intervention at this time If the patient requires IVC filter the vascular team can be called again HTN Stable. Continue home meds COPD lung status at baseline Hyperlipidemia on statin Rx Past tobacco abuse. DVT prophylaxis Eliquis Full code (3) Metastatic cancer to brain: Admission and Anticipated Discharge Date Admission Date: July 16, 2022 Subjective Follow-up for seizure, UTI, etc. Seen resting in bed, sleeping but easily awakened Main complaint is buttock pain because she has been laying on her back since the morning Requesting to be repositioned, patient repositioned Denies any other new symptoms Review of Systems Review of Systems: all noted and negative except for above Physical Exam Physical Exam: General- oriented x 3, not in distress, speaks in sentences with no effort or accessory muscle use Eyes- anicteric Neck- no JVD Lungs- clear BS BL Heart- normal rate, regular rhythm; no murmurs Abdomen- normal bowel sounds, nondistended, soft, nontender Extremities- no pretibial edema, no calf tenderness Neuro- alert, oriented x 3; no gross focal neurologic deficits Skin- warm & dry Results & Data Results & Data ([facility]) Vital Signs (Past 12 Hours) Vital Signs Temp Pulse Pulse Resp BP Pulse Ox O2 Del Method 07/26/22 14:08 96 H 07/26/22 16:19 36.5 C 76 16 98/75 L 94 Room Air 07/26/22 12:00 36.7 C 88 18 112/58 L Room Air 07/26/22 08:37 36.8 C 83 16 124/52 L 95 Room Air 07/26/22 06:09 65 all noted and reviewed including below
--- NOTE | 2022-07-26 18:23 | Nephrology Progress Note ---
Date of Service July 26, 2022 Assessment & Plan (1) Hyponatremia: Plan: Presenting sodium 133>125 14 hrs later 07/22 evening. I/O imperfectly recorded here but she is likely quite positive. no prior hx of sNa <130 in [facility]. unclear if change in sodium had a role in her seizure or not, though it's possible >daily bmp -continue torsemide current dose -added K po 20 mEq daily WILL SIGN OFF NEPHRO D/C RECS -hospital d/c appt w/ nephro in 4 wks any [facility] provider -bmp and mag weekly x 3 to be ordered by neph RN -d/c on current or lower torsemide dose; hold OP lisinopril at d/c -continue current potassium, D, mag supplements at d/c (2) Acute renal failure: Plan: resolved prerenal but recurrent stage 2 SASHA w/ baseline creatinine 0.7-0.8. presented 07/16 w/ creat 1.5, which trended to baseline 48 hrs later. Creat 0.7 on 07/19. Then next bmp on 07/22 w/ creat 1.2, up to 1.4 07/24 > improved /resolved w/ IVF. UA bland pt earlier in admission relatively hypotensive though SBP improving now. she has had IV contrast and still on torsemide. prerenal ATN> improved/ renal function back to baseline w/ IVF -avoid further IV contrast -daily bmp -cont torsemide daily for now -cont to hold outpatient ACEI (3) Hypomagnesemia: Plan: w/ possibly secondary hypocalcemia; had 2 gm IV mag 07/22 for mag 1.4. PTH a ppropriately high, D stores low >cont D3 5000 units daily >increased mag ox to 400 mg bid from daily >daily mag, bmp Admission and Anticipated Discharge Date Admission Date: July 16, 2022 Subjective c/o sacral pain today and wanting to be repositioned more; poorer appetite; denies sob Review of Systems Review of Systems: All systems reviewed & are unremarkable except as noted in Subjective Physical Exam Constitutional: well developed, well nourished, + frail appearing and cooperative; no acute distress Eyes: EOM intact bilaterally ENMT: Ears: no external ear abnormality Nose: no external nose abnormality Mouth: + dry oral mucous membranes Neck: no nuchal rigidity Respiratory: normal respiratory effort Auscultation: + diminished lung sounds (daly R base) Cardiovascular: Rate/Rhythm: regular rate and regular rhythm Extremities: + edema (again 2+ distal LE/ 3+ pedal; none dependent) Gastrointestinal (Abdomen): Inspection/Auscultation: normal bowel sounds Percussion/Palpation: abdomen soft; abdomen nontender Musculoskeletal: Extremities: strength 5/5 throughout Skin: no rashes, warm and dry Neurologic: fluent/appropriate speech, escoto Psychiatric: Orientation: oriented x 3 (slightly slow processing) Results & Data ([facility]) Vital Signs (Past 12 Hours) Vital Signs Temp Pulse Pulse Resp BP Pulse Ox O2 Del Method 07/26/22 14:08 96 H 07/26/22 16:19 36.5 C 76 16 98/75 L 94 Room Air 07/26/22 12:00 36.7 C 88 18 112/58 L Room Air 07/26/22 08:37 36.8 C 83 16 124/52 L 95 Room Air Laboratory Results 07/24/22 06:03 07/26/22 07:41
[2022-07-26] MEDS: GABAPENTIN 100 MG CAP PO SCH (20:25)
[2022-07-26] MEDS: LIDOCAINE 5% 1 PATCH TD SCH (20:26)
[2022-07-27] MEDS: LEVOTHYROXINE SODIUM 25 MCG TABLET PO SCH (06:26)
[2022-07-27 07:20] LABS: BUN Creatinine Ratio 53.6 (10-20); Calcium 7.6 mg/dl (8.5-10.1); Creatinine Clr Calc Pharmacy 52.5 ml/min; Est GFR (African American) 95.3 ml/min; Est GFR (Non-African American) 82.2 ml/min; Potassium 4.7 mmol/L (3.5-5.1)
[2022-07-27] MEDS: levETIRAcetam 500 MG TAB PO SCH ×2 (08:09→20:54)
[2022-07-27] MEDS: MAGNESIUM OXIDE 400 MG TAB PO SCH ×2 (08:09→20:54)
[2022-07-27] MEDS: TORSEMIDE 10 MG TAB PO SCH (08:09)
[2022-07-27] MEDS: POTASSIUM CHLORIDE CRTAB 20 MEQ TABCR PO SCH (08:09)
[2022-07-27] MEDS: DOXYCYCLINE HYCLATE 100 MG CAP PO SCH (08:10)
[2022-07-27] MEDS: APIXABAN 5 MG TABLET PO SCH ×2 (08:10→20:54)
[2022-07-27] MEDS: dexAMETHasone 4 MG TAB PO SCH ×2 (08:10→20:54)
[2022-07-27] MEDS: CHOLECALCIFEROL 5,000 UNITS 125 MCG TAB PO SCH (08:10)
[2022-07-27] MEDS: PANTOprazole 40 MG TAB PO SCH (08:10)
[2022-07-27] MEDS: INSULIN ASPART PER UNIT SC SCH ×4 (08:13→20:55)
[2022-07-27] MEDS: POLYETHYLENE (MIRALAX) 17 GM PACK PO PRN (08:17)
--- NOTE | 2022-07-27 11:27 | CT Scan Report ---
CT SCAN OF THE ABDOMEN AND PELVIS WITHOUT IV CONTRAST CLINICAL HISTORY: Generalized abdominal pain. History of metastatic lung cancer. COMPARISON STUDY: Abdominal CT dated 11/12/2021. TECHNIQUE: CT scan of the abdomen and pelvis is performed from the lung bases to the proximal femora. Images are reviewed in the axial, sagittal, and coronal planes. IV contrast was not administered for this examination. Note that the examination is significantly suboptimal without oral and IV contrast . A dose lowering technique was utilized adhering to the principles of ALARA. CT DOSE: 269.12 mGy.cm FINDINGS: Lung bases: The heart is normal in size note trace pericardial effusion. The coronary arteries are de nsely calcified. A small hiatal hernia is noted. Edematous changes seen at the lung bases. Trace pleu ral effusion is present on the right with bibasilar scarring/atelectasis. Patchy groundglass changes seen throughout the lower lobes. Liver: The unenhanced liver is normal in size, contour, and attenuation. There is no intrahepatic maci iary ductal dilatation. A 1.7 cm cyst is again seen in the left lobe. Gallbladder: There are calcified gallstones without CT evidence of acute cholecystitis. Spleen: Normal in size and attenuation. Pancreas: The unenhanced pancreas is moderately atrophic. Parenchymal calcifications suggest chronic pancreatitis. Adrenal glands: Unremarkable. Kidneys: The unenhanced kidneys are normal in size size. There is mild bilateral hydroureteronephrosi s, likely related to marked bladder distention. A 5 mm nonobstructing calculus is in the left lower p ole. Numerous simple and complex bilateral renal cysts are similar to previous and measure up to 2.3 cm. Abdominal vasculature: There is advanced atherosclerotic calcification and ectasia of the abdominal a dolores. This measures up to 2.8 cm diameter. Ectasia of the right common iliac artery measures up to 1. 8 cm. Bowel: There is rectosigmoid fecal retention. No bowel obstruction is seen. The appendix is well-vis ualized and normal. Peritoneum: There is no intraperitoneal free air or abdominal ascites. Lymphadenopathy: None. Pelvic viscera: The bladder is markedly distended. Prominence of the ovaries and a 3 cm simple cystic lesion in the left ovary are similar to previous. The uterus is normal as visualized. Skeletal structures: The skeletal structures are heterogeneously osteopenic. There is moderate to adv anced lumbosacral spondylosis. No lytic or blastic lesions are clearly seen. Soft tissues: There is body wall edema. IMPRESSION: 1. Severe bladder distention. This suggests outlet obstruction. Clinical correlation will be required . 2. Mild bilateral hydroureteronephrosis is likely related to the degree of bladder distention. 3. Advanced emphysema as noted at the lung bases. 4. Patchy groundglass consolidation is seen throughout the lower lobes, likely representing an infect ious/inflammatory pneumonitis. Clinical correlation will be required. 5. Trace right pleural effusion. 6. Cholelithiasis and left-sided nephrolithiasis. 7. Additional findings as above. ACT 112: Negative or not required by law. Electronically signed by: Tylor Galvan M.D. 07/27/2022 11:25 AM
--- NOTE | 2022-07-27 12:36 | Hospitalist Progress Note ---
Date of Service July 27, 2022 Assessment & Plan (1) Seizure: Plan: Severe bladder distention, bladder outlet obstruction, hydronephrosis -CT abdomen/pelvis: 1. Severe bladder distention. This suggests outlet obstruction. Clinical correlation will be required. 2. Mild bilateral hydroureteronephrosis is likely related to the degree of bladder distention. 3. Advanced emphysema as noted at the lung bases. 4. Patchy groundglass consolidation is seen throughout the lower lobes, likely representing an infectious/inflammatory pneumonitis. Clinical correlation will be required. 5. Trace right pleural effusion. 6. Cholelithiasis and left-sided nephrolithiasis. 7. Additional findings as above. -Kidney function okay -Arguelles catheter placed Urologist consulted (1) Seizure: Plan: per Dr. 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 Seizure has been well controlled on current dose of Keppra at 1000 mg twice daily Suffered another episode of partial seizure involving the right side last evening and was controlled with intravenous Ativan MRI, CTAs are unremarkable-MRI showing improvement of the prior edema and also the metastasis Appreciate neurology input and recommended Keppra doses have been increased to 1500 mg twice daily Will observe the patient today and likely discharge tomorrow provided kidney function and sodium level are reasonable -- no recurrence of seizure continue Keppra 1500mg BID - stable ARF secondary to illness--initially presented with ARF which subsequently resolved Monitor creatinine response to IVF, hold lisinopril and home diuretic until creatinine back to baseline Creatinine has been normalized -- crea 0.5 given IV fluids Nephro on board Hyponatremia and SASHA Creatinine has been up as of yesterday and nephrology has been consulted specially with hyponatremia Torsemide has been discontinued Getting cautious amount of intravenous fluid Will monitor PRP Appreciate nephrology input and recommendation -- Na 125 --> 130--> 134 improving (2) DVT (deep venous thrombosis): Plan: Hx NSCLC status post surgery status post Keytruda with brain mets status post radiation on Decadron (Outpatient brain MRI done this month showed decrease in size of right parietal metastatic lesion with slightly increased edema possibly representing postradiation effect, slight interval increase in size of left temporal metastatic lesion, stable left old central gyrus lesion. Concern for focal leptomeningeal and dural involvement.) Case discussed with Dr. Villeda (patient's [facility] rubbing bed operator/oncologist) He recommends IV heparin for now and transitioning to Eliquis if tolerated by patient Follow troponin-trending down doubt any ACS Transitioned to Eliquis 10 mg twice daily on evening of 07/19/22 for 7 days, then continue 5mg BID Has been tolerating Eliquis Has been on doxycycline for colon issues and given by flattening press operator and she wants to continue that She feels lot better and less ankle swelling has improved She is back to her baseline and wants to be discharged and awaiting for placement Medically stable to be discharged We will continue current dose of Eliquis -- tolerating Eliquis well Urinary tract infection Urine culture is growing Pseudomonas Started on Cipro 07/19/22. ECG ordered; qtc within normal range Urinary symptoms Will finish the course of antibiotic-we will stop Cipro tomorrow --Patient has completed course of ciprofloxacin Type 2 diabetes mellitus with bilateral toe infections Basal bolus insulin, ISS BG goal 110-1 40, carb count coverage Multiple toe infection of 3 weeks duration on new doxycycline Rx No sepsis for now. XR of feet did not show any evidence of osteomyelitis She does not have any cellulitis and/or ulcerations involving the toes bilaterally Podiatry consulted- * wound instructions: Right leg ulcer cleansed with Betadine followed by normal saline. Application of foam dressing to right leg ulcer. Patient to continue with lower extremity compression. Socks applied over foam dressing. Appreciate wound care consult for leg ulcer dressing changes -- denies pain on her feet Peripheral arterial disease Status post CVA Bilateral lower extremity arterial Doppler showed extensive atherosclerotic plaque within the lower extremities with hemodynamically significant stenosis within the bilateral superficial femoral arteries more severe R>L Appreciate vascular surgery input and recommendation-no intervention at this time If the patient requires IVC filter the vascular team can be called again HTNStable. Continue home meds COPDlung status at baseline Hyperlipidemiaon statin Rx Past tobacco abuse. DVT prophylaxis Eliquis Full code Admission and Anticipated Discharge Date Admission Date: July 16, 2022 Subjective ff up for seizure, UTI, etc seen resting in bed, uncomfortable due to lower abdominal pain (+) BMs, no nausea, feve/chills no chest pain, dyspnea, palpitations, dizziness no other symptoms Review of Systems Review of Systems: all noted and negative except for above Physical Exam Physical Exam: General- oriented x 3, not in distress, speaks in sentences with no effort or accessory muscle use Eyes- anicteric Neck- no JVD Lungs- clear breath sounds bilaterally, no rales/wheezes Heart- normal rate, regular rhythm; no murmurs Abdomen- normal bowel sounds, (+) mildly distended, no tenderness Extremities- no pretibial edema, no calf tenderness Neuro- alert, oriented x 3; no gross focal neurologic deficits Skin- warm & dry Results & Data Results & Data ([facility]) Vital Signs (Past 12 Hours) Vital Signs Temp Pulse Pulse Pulse Resp BP Pulse Ox 07/27/22 12:04 36.3 C L 90 20 119/67 91 07/27/22 08:54 70 07/27/22 08:54 07/27/22 08:36 36.7 C 67 17 126/77 92 07/27/22 03:04 36.6 C 66 18 93/69 L 96 O2 Del Method 07/27/22 12:04 Room Air 07/27/22 08:54 07/27/22 08:54 Room Air 07/27/22 08:36 Room Air 07/27/22 03:04 Room Air all noted and reviewed including below
--- NOTE | 2022-07-27 15:19 | Urology Consultation ---
Date of Consultation July 27, 2022 Assessment & Plan (1) Urinary retention: Plan 82-year-old female with significantly distended bladder on CT scan who reports resolution of abdominal plain following catheter placement today Recommend maintaining Arguelles catheter for minimum of 7 days due to significant distention. If patient is discharged prior to this, urology can schedule outpatient follow-up for possible void trial Monitor electrolytes for possible postobstructive diuresis Unclear what exact etiology of retention is, however suspect it may be partially related to constipation given CT scan and patient's history. Recommend bowel regimen Suspect previous UTI was related to incomplete emptying Patient will need outpatient work-up to further elucidate cause of retention Urology will send a message for follow-up in the next 1 to 2 weeks for void trial Urology to sign off History of Present Illness Reason for Consultation: Distended bladder with mild bilateral hydronephrosis Attending Physician: Franki Majano MD History of Present Illness 82-year-old female who was initially admitted on 07/16/2022 due to being directed to the ED due to vascular issues. She was found to have a DVT. She has remained in the hospital for numerous issues including seizures, acute renal f ailure, hyponatremia, UTI and other issues. She also has a history of metastatic lung cancer. A CT scan was obtained of the abdomen and pelvis this morning due to generalized abdominal pain. I independently reviewed this which showed a severely distended bladder and mild bilateral hydronephrosis. There was a nonobstructive left-sided stone. Urology was consulted for further management. Labs were last obtained on 07/24/2022 which showed a white blood cell count of 9.9, hemoglobin of 10.7, sodium of 130, and a creatinine of 0.59. Urinalysis from 07/15/2022 did grow out Pseudomonas. I reviewed his CT scan from November 2021 which showed a distended bladder but this was markedly less distended than the bladder was on today's scan. Both scans have showed significant constipation. She denies any dysuria, hematuria, urgency, frequency or at home. She reported 4 days of abdominal pain that instantly improved following Arguelles catheter placement this morning. She does report recent constipation. Allergies Allergy/AdvReac Type Severity Reaction Status Date / Time baclofen AdvReac Mild felt funny Verified 07/15/22 23:33 pembrolizumab [From [facility]] AdvReac Mild Diarrhea Verified 07/15/22 23:33 Home Medications Medication Instructions Recorded Confirmed Type cholecalciferol (vitamin D3) 25 25 mcg PO DAILY 04/04/22 07/15/22 History mcg (1,000 unit) tablet (Vitamin D3) denosumab 60 mg/mL subcutaneous 60 mg subcut .[id number] 04/04/22 07/15/22 History syringe (Prolia) gabapentin 100 mg capsule 100 mg PO HS 04/04/22 07/15/22 History insulin aspart U-100 100 unit/mL See Rx Instructions .Route .COMPLEX 04/04/22 07/25/22 History (3 mL) subcutaneous pen (Novolog Flexpen U-100 Insulin aspart) levothyroxine 25 mcg tablet 25 mcg PO DAILY 04/04/22 07/15/22 History linagliptin 5 mg tablet (Tradjenta) 5 mg PO QAM 04/04/22 07/15/22 History lorazepam 0.5 mg tablet 0.5 mg PO Q8 PRN Anxiety 04/04/22 07/15/22 History metronidazole 1 % topical gel 1 applic topical BID 04/04/22 07/15/22 History omeprazole 20 mg capsule,delayed 20 mg PO DAILY 04/04/22 07/15/22 History release rosuvastatin 10 mg tablet 10 mg PO HS 04/04/22 07/15/22 History torsemide 20 mg tablet 40 mg PO QAM 04/04/22 07/15/22 History dexamethasone 4 mg tablet 4 mg PO TID #0 tabs 04/09/22 07/15/22 Rx acetaminophen 325 mg tablet 650 mg PO Q6 PRN as directed 07/15/22 07/15/22 History doxycycline hyclate 100 mg capsule 100 mg PO AMHS 07/15/22 07/15/22 History insulin glargine 100 unit/mL (3 13 unit subcut QAM 07/15/22 07/25/22 History mL) subcutaneous pen (Basaglar KwikPen U-100 Insulin) levetiracetam 1,000 mg tablet 1,000 mg PO AMHS 07/15/22 07/15/22 History lisinopril 20 mg tablet 20 mg PO QAM 07/15/22 07/15/22 History mesalamine 1.2 gram tablet,delayed 2.4 g PO QAM 07/15/22 07/15/22 History release Patient History Medical History Anemia chronic iron deficiency anemia in setting of ulcerative colitis (does receive routine iron infusions), under surveillance of [facility] hematology/GI. Arthritis Clumsiness Depression Diabetes mellitus, type 2 NIDDM Dizziness High cholesterol History of radiation therapy Hypertension Hypothyroidism Left knee DJD Left knee DJD Leg edema, left Metastasis to brain dx 09/2020. MRI imaging and radiation treatments x5. Metastatic cancer to brain Nocturnal hypoxia 2L/min NC HS Non-small cell cancer of right lung (~2016) s/p lower and middle lung lobe resection (2017), no chemo or xrt PVCs (premature ventricular contractions) Ulcerative colitis Inflectra treatments - follows with [facility] GI Surgical History History of breast biopsy History of colonoscopy History of lobectomy of lung Right VATS middle and lower lobectomy: 07/11/17: Grade 2 view, MAC#3, BANG History of repair of rotator cuff History of tonsillectomy History of tubal ligation S/P right rotator cuff repair Status post right knee replacement Family History Sister Family history of diabetes mellitus Mother Alzheimer disease Father Myocardial infarction Other Heart disease No family history of adverse response to anesthesia Social History Smoking Status: Former smoker Tobacco Type: Cigarettes Second Hand Exposure: No; Hx Alcohol Use: No Hx Substance Use: No Preferred Language: Swedish Communication Ability: Effective Visual Impairment: No Limitations Head Tennis Coach Required: No Beliefs That Will Affect Care: None marital status: / Current Living Situation: Alone Current Living Situation Comment: [facility] How many Children do You have: 0 Feels Safe at Home: Yes Assistive Devices: Oxygen - at Night and Walker Review of Systems Review of Systems: 14 point review of systems negative outside of what is listed above in HPI Physical Exam Physical Exam: General: Alert and oriented, no acute distress HEENT: Normocephalic, mucous membranes moist Cardiovascular: Regular rate Pulmonary: Nonlabored respirations Abdomen: Nondistended : Arguelles catheter draining clear yellow urine Extremities: Moves all 4 spontaneously Neuro: No gross deficits Skin: Warm, dry, no rashes noted Results & Data ([facility]) Vital Signs (Past 12 Hours) Vital Signs Temp Pulse Pulse Resp BP Pulse Ox O2 Del Method 07/27/22 12:04 36.3 C L 90 20 119/67 91 Room Air 07/27/22 08:54 70 07/27/22 08:54 Room Air 07/27/22 08:36 36.7 C 67 17 126/77 92 Room Air PG Care Time/CCT Total # of Minutes Spent Total Time Spent with Patient: Total time spent is greater than 50% in coordination of care (as documented) at patient's floor/unit and/or counseling patient: Coding Level of Care Code 21127 Initial Inpt Care Lvl 2 Diagnoses Urinary retention R33.9
[2022-07-27] MEDS: LIDOCAINE 5% 1 PATCH TD SCH (20:53)
[2022-07-27] MEDS: GABAPENTIN 100 MG CAP PO SCH (20:54)
[2022-07-28] MEDS: INSULIN ASPART PER UNIT SC SCH ×6 (00:19→20:53)
[2022-07-28] MEDS: LEVOTHYROXINE SODIUM 25 MCG TABLET PO SCH (05:58)
[2022-07-28] MEDS: CARBOHYDRATES FOR HYPOGLYCEMIA PO PRN (07:27)
[2022-07-28] MEDS: POTASSIUM CHLORIDE CRTAB 20 MEQ TABCR PO SCH (08:27)
[2022-07-28] MEDS: levETIRAcetam 500 MG TAB PO SCH ×2 (08:27→20:43)
[2022-07-28] MEDS: dexAMETHasone 4 MG TAB PO SCH ×2 (08:28→20:43)
[2022-07-28] MEDS: CHOLECALCIFEROL 5,000 UNITS 125 MCG TAB PO SCH (08:28)
[2022-07-28] MEDS: PANTOprazole 40 MG TAB PO SCH (08:28)
[2022-07-28] MEDS: APIXABAN 5 MG TABLET PO SCH ×2 (08:28→20:43)
[2022-07-28] MEDS: TORSEMIDE 10 MG TAB PO SCH (08:28)
[2022-07-28] MEDS: MAGNESIUM OXIDE 400 MG TAB PO SCH ×2 (08:28→20:43)
[2022-07-28 09:06] LABS: BUN Creatinine Ratio 63.1 (10-20); Calcium 7.4 mg/dl (8.5-10.1); Creatinine Clr Calc Pharmacy 57.1 ml/min; Est GFR (African American) 97.2 ml/min; Est GFR (Non-African American) 83.9 ml/min; Potassium 4.1 mmol/L (3.5-5.1)
--- NOTE | 2022-07-28 13:44 | Pharmacy Report ---
Pharmacy Glycemic Short Note 2 - Date of Service July 28, 2022 - Glycemic Short BSG Results (Last 24 hours): 07/27/22 07/27/22 07/27/22 16:18 20:31 20:32 Glucose POC Glucose 120 H 322 H* 320 H* 07/28/22 07/28/22 07/28/22 00:10 04:12 07:08 Glucose 50 L* POC Glucose 178 H 101 H 07/28/22 07/28/22 07/28/22 07:21 07:23 07:43 Glucose POC Glucose 55 L* 67 L* 78 07/28/22 11:36 Glucose POC Glucose 207 H OUTPATIENT ANTIDIABETIC REGIMEN: * Basaglar 15 units SC AM * Novolog 4 units SC TIDM * Tradjenta 5mg PO AM * HbA1c: 9.1% (07/25/22) ASSESSMENT: 07/28: * Patient received total of 15 units of insulin yesterday, all of which were correctional * Fasting BSG low 55 mg/dL this AM - treated per hypoglycemia protocol. BSGs went up into 300s last evening at HS time? Unclear reasoning for this. RN not able to pass along if maybe patient had been eating. Lower BSG this morning likely related to possibly overcorrecting the high BSG last night. No basal insulin currently ordered * Plan to loosen CF today and will monitor. Patient's BSGs tend to be very labile the last couple of day 07/26: * Fatoumata received a total of 21 units of insulin yesterday, 10 units basal + 17 units bolus. BSGs were: 72-462-52-112 mg/dL. Fortunately, patient was asymptomatic with hypoglycemic episode at dinnertime. Did require 15 grams of carbs to bring BSG up. HS Lantus and carb ratio were decreased at that time. * Fasting BSG this AM was 77 mg/dL. Will reduce HS Lantus further today. Loosening Novolog parameters as well. Remains on Dexamethasone 4 mg PO BID. 07/25: * Patient received 27 units of insulin yesterday, 10 units basal + 17 units bolus. BSGs were: 09-133-904-197 mg/dL. * Fasting BSG this AM was 78 mg/dL - well controlled but well below goal. Lantus was decreased yesterday, and this fasting BSG is actually trending upwards. Therefore, no change to Lantus today. * There was a trend of postprandial hyperglycemia yesterday. Will tighten both CF and CR today. 07/24: * Fatoumata is a 82 year old female with type 2 diabetes with an admission characterized by ARF and seizure. Pertinent stressors include the chronic use of Decadron 4mg TID, decreased 07/23/22 to BID. * Decreased TDD of Decadron and downtrending AM fasting BSG's suggest that Lantus dose may require reduction to avoid AM hypoglycemia. * Patient is tolerating an oral diet has been maintained on a bolus regimen of 25unit CF -15unit CR. Prandial BSG's have been above goal, will tighten carb ratio. PLAN FOR INPATIENT GLYCEMIC CONTROL: * Hold outpatient oral diabetes medications * Basal insulin * Lantus - holding * Bolus insulin * NovoLog per scale ACHS or Q6hrs while NPO * Goal Range: Low 120 mg/dL - High 160 mg/dL * Correction Factor: 40 mg/dL/unit * Nutritional / Prandial insulin per carb ratio of 1 unit per 15 grams CHO consumed
--- NOTE | 2022-07-28 15:52 | Hospitalist Progress Note ---
Date of Service July 28, 2022 Assessment & Plan (1) Seizure: Plan: Severe bladder distention, bladder outlet obstruction, hydronephrosis -CT abdomen/pelvis: 1. Severe bladder distention. This suggests outlet obstruction. Clinical correlation will be required. 2. Mild bilateral hydroureteronephrosis is likely related to the degree of bladder distention. 3. Advanced emphysema as noted at the lung bases. 4. Patchy groundglass consolidation is seen throughout the lower lobes, likely representing an infectious/inflammatory pneumonitis. Clinical correlation will be required. 5. Trace right pleural effusion. 6. Cholelithiasis and left-sided nephrolithiasis. 7. Additional findings as above. -Kidney function okay -Galaviz catheter placed Urologist consulted 07/28 resolved continue Galaviz Urologist recommends outpatient ff up for further work up (1) Seizure: Plan: per Dr. 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 Seizure has been well controlled on current dose of Keppra at 1000 mg twice daily Suffered another episode of partial seizure involving the right side last evening and was controlled with intravenous Ativan MRI, CTAs are unremarkable-MRI showing improvement of the prior edema and also the metastasis Appreciate neurology input and recommended Keppra doses have been increased to 1500 mg twice daily Will observe the patient today and likely discharge tomorrow provided kidney function and sodium level are reasonable -- no recurrence of seizure continue Keppra 1500mg BID - stable ARF secondary to illness--initially presented with ARF which subsequently resolved Monitor creatinine response to IVF, hold lisinopril and home diuretic until creatinine back to baseline Creatinine has been normalized -- crea 0.5 given IV fluids Nephro on board Hyponatremia and SASHA Creatinine has been up as of yesterday and nephrology has been consulted specially with hyponatremia Torsemide has been discontinued Getting cautious amount of intravenous fluid Will monitor PRP Appreciate nephrology input and recommendation -- Na 125 --> 130--> 134--> 136 improving (2) DVT (deep venous thrombosis): Plan: Hx NSCLC status post surgery status post Keytruda with brain mets status post radiation on Decadron (Outpatient brain MRI done this month showed decrease in size of right parietal metastatic lesion with slightly increased edema possibly representing postradiation effect, slight interval increase in size of left temporal metastatic lesion, stable left old central gyrus lesion. Concern for focal leptomeningeal and dural involvement.) Case discussed with Dr. Villeda (patient's [facility] operations boardman/oncologist) He recommends IV heparin for now and transitioning to Eliquis if tolerated by patient Follow troponin-trending down doubt any ACS Transitioned to Eliquis 10 mg twice daily on evening of 07/19/22 for 7 days, then continue 5mg BID Has been tolerating Eliquis Has been on doxycycline for colon issues and given by academic administrator and she wants to continue that She feels lot better and less ankle swelling has improved She is back to her baseline and wants to be discharged and awaiting for placement Medically stable to be discharged We will continue current dose of Eliquis -- tolerating Eliquis well Urinary tract infection Urine culture is growing Pseudomonas Started on Cipro 07/19/22. ECG ordered; qtc within normal range Urinary symptoms Will finish the course of antibiotic-we will stop Cipro tomorrow --Patient has completed course of ciprofloxacin Type 2 diabetes mellitus with bilateral toe infections Basal bolus insulin, ISS BG goal 110-1 40, carb count coverage Multiple toe infection of 3 weeks duration on new doxycycline Rx No sepsis for now. XR of feet did not show any evidence of osteomyelitis She does not have any cellulitis and/or ulcerations involving the toes bilaterally Podiatry consulted- * wound instructions: Right leg ulcer cleansed with Betadine followed by normal saline. Application of foam dressing to right leg ulcer. Patient to continue with lower extremity compression. Socks applied over foam dressing. Appreciate wound care consult for leg ulcer dressing changes -- denies pain on her feet Peripheral arterial disease Status post CVA Bilateral lower extremity arterial Doppler showed extensive atherosclerotic plaque within the lower extremities with hemodynamically significant stenosis within the bilateral superficial femoral arteries more severe R>L Appreciate vascular surgery input and recommendation-no intervention at this time If the patient requires IVC filter the vascular team can be called again HTNStable. Continue home meds COPDlung status at baseline Hyperlipidemiaon statin Rx Past tobacco abuse. DVT prophylaxis Eliquis Full code Admission and Anticipated Discharge Date Admission Date: July 16, 2022 Subjective ff up for seizure, etc seen resting in bed, comfortable smiling , in good spirits feels much better overall abdominal pain resolved after galaviz placement no chest pain, dyspnea, palpitations, dizziness no other symptoms Review of Systems Review of Systems: all noted and negative except for above Physical Exam Physical Exam: General- oriented x 3, not in distress, speaks in sentences with no effort or accessory muscle use Eyes- anicteric Neck- no JVD Lungs- clear BS BL Heart- normal rate, regular rhythm; no murmurs Abdomen- normal bowel sounds, nondistended, soft, nontender Extremities- no pretibial edema, no calf tenderness Neuro- alert, oriented x 3; no gross focal neurologic deficits Skin- warm & dry Results & Data Results & Data ([facility]) Vital Signs (Past 12 Hours) Vital Signs Temp Pulse Pulse Resp BP Pulse Ox O2 Del Method 07/28/22 14:25 96 H 07/28/22 12:24 36.7 C 80 18 117/59 L 91 Room Air 07/28/22 06:12 74 07/28/22 08:28 Room Air 07/28/22 07:37 36.4 C L 68 95 H 101/49 L 95 Nasal Cannula O2 Flow Rate 07/28/22 14:25 07/28/22 12:24 07/28/22 06:12 07/28/22 08:28 07/28/22 07:37 1.0 all noted and reviewed including below
[2022-07-28] MEDS: ACETAMINOPHEN 325 MG TAB PO PRN (17:35)
[2022-07-28] MEDS: GABAPENTIN 100 MG CAP PO SCH (20:43)
[2022-07-29] MEDS: LIDOCAINE 5% 1 PATCH TD SCH (05:11)
[2022-07-29] MEDS: LEVOTHYROXINE SODIUM 25 MCG TABLET PO SCH (05:56)
[2022-07-29 07:27] VITALS: BP 107/68; PULSE 75; TEMP 98.2; O2SAT 91
--- NOTE | 2022-07-29 08:48 | Pharmacy Report ---
Pharmacy Glycemic Short Note 2 - Date of Service July 29, 2022 - Glycemic Short BSG Results (Last 24 hours): 07/28/22 07/28/22 07/28/22 07:08 11:36 16:47 Glucose 50 L* POC Glucose 207 H 221 H 07/28/22 07/29/22 20:49 08:22 Glucose POC Glucose 198 H 204 H OUTPATIENT ANTIDIABETIC REGIMEN: * Basaglar 15 units SC AM * Novolog 4 units SC TIDM * Tradjenta 5mg PO AM * HbA1c: 9.1% (07/25/22) ASSESSMENT: 07/29: * Fasting BSG 204mg/dl, blood sugars labile last two days, will try adding basal back to help with this, and tighten CR for better prandial coverage. * Continue higher goal range to prevent hypoglycemia. * Continues on Dexamethasone 4mg PO BID. 07/28: * Patient received total of 15 units of insulin yesterday, all of which were correctional * Fasting BSG low 55 mg/dL this AM - treated per hypoglycemia protocol. BSGs went up into 300s last evening at HS time? Unclear reasoning for this. RN not able to pass along if maybe patient had been eating. Lower BSG this morning likely related to possibly overcorrecting the high BSG last night. No basal insulin currently ordered * Plan to loosen CF today and will monitor. Patient's BSGs tend to be very labile the last couple of day 07/26: * Fatoumata received a total of 21 units of insulin yesterday, 10 units basal + 17 units bolus. BSGs were: 63-663-27-112 mg/dL. Fortunately, patient was asymptomatic with hypoglycemic episode at dinnertime. Did require 15 grams of carbs to bring BSG up. HS Lantus and carb ratio were decreased at that time. * Fasting BSG this AM was 77 mg/dL. Will reduce HS Lantus further today. Loosening Novolog parameters as well. Remains on Dexamethasone 4 mg PO BID. 07/25: * Patient received 27 units of insulin yesterday, 10 units basal + 17 units bolus. BSGs were: 80-711-138-197 mg/dL. * Fasting BSG this AM was 78 mg/dL - well controlled but well below goal. Lantus was decreased yesterday, and this fasting BSG is actually trending upwards. Therefore, no change to Lantus today. * There was a trend of postprandial hyperglycemia yesterday. Will tighten both CF and CR today. 07/24: * Fatoumata is a 82 year old female with type 2 diabetes with an admission characterized by ARF and seizure. Pertinent stressors include the chronic use of Decadron 4mg TID, decreased 07/23/22 to BID. * Decreased TDD of Decadron and downtrending AM fasting BSG's suggest that Lantus dose may require reduction to avoid AM hypoglycemia. * Patient is tolerating an oral diet has been maintained on a bolus regimen of 25unit CF -15unit CR. Prandial BSG's have been above goal, will tighten carb ratio. PLAN FOR INPATIENT GLYCEMIC CONTROL: * Hold outpatient oral diabetes medications * Basal insulin * Lantus - 8 units SQ AM * Bolus insulin * NovoLog per scale ACHS or Q6hrs while NPO * Goal Range: Low 120 mg/dL - High 160 mg/dL * Correction Factor: 40 mg/dL/unit * Nutritional / Prandial insulin per carb ratio of 1 unit per 10 grams CHO consumed
[2022-07-29] MEDS: INSULIN ASPART PER UNIT SC SCH ×2 (08:58→12:56)
[2022-07-29] MEDS: MAGNESIUM OXIDE 400 MG TAB PO SCH (08:59)
[2022-07-29] MEDS: APIXABAN 5 MG TABLET PO SCH (08:59)
[2022-07-29] MEDS: levETIRAcetam 500 MG TAB PO SCH (09:00)
[2022-07-29] MEDS: PANTOprazole 40 MG TAB PO SCH (09:00)
[2022-07-29] MEDS: CHOLECALCIFEROL 5,000 UNITS 125 MCG TAB PO SCH (09:00)
[2022-07-29] MEDS: TORSEMIDE 10 MG TAB PO SCH (09:00)
[2022-07-29] MEDS ORDERED: LANTUS PER UNIT CHARGE SQ SCH (09:00)
[2022-07-29] MEDS: POTASSIUM CHLORIDE CRTAB 20 MEQ TABCR PO SCH (09:00)
[2022-07-29] MEDS: dexAMETHasone 4 MG TAB PO SCH (09:00)
--- NOTE | 2022-07-29 11:13 | Hospitalist Progress Note ---
Date of Service July 29, 2022 Assessment & Plan (1) Seizure: Plan: Type 2 diabetes mellitus with bilateral toe infections Multiple toe infection of 3 weeks duration on new doxycycline Rx XR of feet did not show any evidence of osteomyelitis She does not have any cellulitis and/or ulcerations involving the toes bilaterally Podiatry consulted- * wound instructions: Right leg ulcer cleansed with Betadine followed by normal saline. Application of foam dressing to right leg ulcer. Patient to continue with lower extremity compression. Socks applied over foam dressing. -- currently denies pain on her feet DVT (deep venous thrombosis): Plan: Hx NSCLC status post surgery status post Keytruda with brain mets status post radiation on Decadron (Outpatient brain MRI done this month showed decrease in size of right parietal metastatic lesion with slightly increased edema possibly representing postradiation effect, slight interval increase in size of left temporal metastatic lesion, stable left old central gyrus lesion. Concern for focal leptomeningeal and dural involvement.) Case discussed with Dr. Villeda (patient's [facility] printing services coordinator/oncologist) Transitioned from heparin drip to Eliquis 10 mg twice daily on evening of 07/19/22 for 7 days, then continue 5mg BID Has been tolerating Eliquis -- tolerating Eliquis well Urinary tract infection Urine culture is growing Pseudomonas --Patient has completed course of ciprofloxacin Seizure: History of metastatic brain disease from colon cancer Seizure has been well controlled on current dose of Keppra at 1000 mg twice daily Suffered another episode of partial seizure involving the right side last evening and was controlled with intravenous Ativan MRI, CTAs are unremarkable-MRI showing improvement of the prior edema and also the metastasis Neurologist consulted Keppra doses have been increased to 1500 mg twice daily -- no recurrence of seizure continue Keppra 1500mg BID - stable ARF --initially presented with ARF which subsequently resolved Creatinine has been normalized -- crea 0.5 given IV fluids Nephro on board Hyponatremia and SASHA Creatinine has been up as of yesterday and nephrology has been consulted specially with hyponatremia Torsemide has been discontinued Getting cautious amount of intravenous fluid Will monitor PRP Appreciate nephrology input and recommendation -- Na 125 --> 130--> 134--> 136 improving Severe bladder distention, bladder outlet obstruction, hydronephrosis -CT abdomen/pelvis: 1. Severe bladder distention. This suggests outlet obstruction. Clinical correlation will be required. 2. Mild bilateral hydroureteronephrosis is likely related to the degree of bladder distention. 3. Advanced emphysema as noted at the lung bases. 4. Patchy groundglass consolidation is seen throughout the lower lobes, likely representing an infectious/inflammatory pneumonitis. Clinical correlation will be required. 5. Trace right pleural effusion. 6. Cholelithiasis and left-sided nephrolithiasis. 7. Additional findings as above. -Kidney function okay -Arguelles catheter placed Urologist consulted 07/28 resolved continue Arguelles Urologist recommends outpatient ff up for further work up Peripheral arterial disease Status post CVA Bilateral lower extremity arterial Doppler showed extensive atherosclerotic plaque within the lower extremities with hemodynamically significant stenosis within the bilateral superficial femoral arteries more severe R>L Appreciate vascular surgery input and recommendation-no intervention at this time If the patient requires IVC filter the vascular team can be called again HTNStable. Continue home meds COPDlung status at baseline Hyperlipidemiaon statin Rx DVT prophylaxis Eliquis Full code Admission and Anticipated Discharge Date Admission Date: July 16, 2022 Subjective ff up for UTI, seizure, etc seen sitting up in bed, comfortable states she did not sleep well last night due to noise, activity, etc has generalized pain- which is chronic as per patient no chest pain, dyspnea, palpitations, dizziness no other symptoms states she is ready for discharge today if SNF accepts her Review of Systems Review of Systems: all noted and negative except for above Physical Exam Physical Exam: General- oriented x 3, not in distress, speaks in sentences with no effort or accessory muscle use Eyes- anicteric Neck- no JVD Lungs- clear breath sounds bilaterally, no crackles, no wheezing Heart- normal rate, regular rhythm; no murmurs Abdomen- normal bowel sounds, nondistended, soft, nontender Extremities- no pretibial edema, no calf tenderness Neuro- alert, oriented x 3; no gross focal neurologic deficits Skin- warm & dry Results & Data Results & Data ([facility]) Vital Signs (Past 12 Hours) Vital Signs Temp Pulse Resp BP Pulse Ox O2 Del Method 07/29/22 10:38 Room Air 07/29/22 07:27 36.8 C 75 18 107/68 91 Room Air all noted and reviewed including below
--- NOTE | 2022-07-29 11:47 | Discharge Summary ---
Discharge Summary Date of Service July 29, 2022 Notes For Next Care Provider Please repeat basic metabolic profile and magnesium level in 3 to 5 days. Monitor blood glucose levels closely as patient tends to have hypoglycemic episodes. Maintain Arguelles catheter for now. Patient needs outpatient urology evaluation for urinary retention, possible voiding trial. Please refer to assessment and plan below for further details. Medication Changes From Visit Insulin glargine decreased to 6 units daily. Insulin NovoLog scheduled doses discontinued, sliding scale for now Tradjenta discontinued Eliquis 5 mg p.o. twice daily started Keppra increased to 1500 mg twice daily. Lisinopril discontinued. Admission HPI Per Admitting Provider History obtained from patient and records. Medical history significant for HTN, COPD, CVA, PAD, hyperlipidemia, non-small cell lung cancer status post surgery status post Keytruda with brain mets on Decadron, DM2 insulin requiring, history Keytruda induced ulcerative colitis, seizure disorder as per records, multiple toe infection ongoing doxycycline Rx, past tobacco abuse. Last confinement March 2022 for increased intracranial pressure secondary to metastatic brain cancer with hemorrhage and vasogenic edema. [facility] [place] recommended Decadron 4 times a day. Patient Keppra dose increased on discharge. Patient discharged to rehab facility. Patient seen by Taya site surveyor outpatient 6 weeks ago for diabetic nail care. Hammertoes noted on both feet. Topical antibiotic Rx prescribed for left lower extremity wound. 2 weeks ago, she was told by another site surveyor that she had 5 infected toes. No fever, no chills. 3 on 1 side and 2 on the other. Yellow drainage from the toes. Topical antibiotic ointment prescribed. Patient seen at urgent care center last week. Erythema and irritation noted on several toes and nailbeds without active drainage. Patient prescribed Keflex course for possible paronychia. Patient seen at PCPs office on follow-up yesterday. Patient complaining of toe pain with some yellow discharge. Toenail beds noted to be erythematous and irritated without discharge. Cool feet with weak pulses as per provider documentation. ER evaluation recommended by PCP to rule out osteomyelitis but patient declined initially. Patient prescribed doxycycline. Blood work requested by PCP. Outpatient Podiatry referral recommended. Serum creatinine noted to be 1.3. Outpatient ETHAN done at [facility] yesterday showed limited exam secondary to noncompressible arteries. Arterial lower extremity Doppler may be considered for further evaluation. Patient directed to ER for evaluation. IV Cefepime administered at the ER for possible UTI. Patient denies chest pain, unusual shortness of breath, headache, abdominal pain, diarrhea, dysuria symptoms. 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 Application of foam dressing to right leg ulcer. Patient to continue with lower extremity compression. Socks applied over foam dressing. -- currently denies pain on her feet DVT (deep venous thrombosis): Plan: Hx NSCLC status post surgery status post Keytruda with brain mets status post radiation on Decadron (Outpatient brain MRI done this month showed decrease in size of right parietal metastatic lesion with slightly increased edema possibly representing postradiation effect, slight interval increase in size of left temporal metastatic lesion, stable left old central gyrus lesion. Concern for focal leptomeningeal and dural involvement.) Case discussed with Dr. Villeda (patient's [facility] home care administrator/oncologist) Transitioned from heparin drip to Eliquis 10 mg twice daily on evening of 07/19/22 for 7 days, then continue 5mg BID Has been tolerating Eliquis -- tolerating Eliquis well Urinary tract infection Urine culture is growing Pseudomonas --Patient has completed course of ciprofloxacin Seizure: History of metastatic brain disease from colon cancer Seizure has been well controlled on current dose of Keppra at 1000 mg twice daily Suffered another episode of partial seizure involving the right side last ev ening and was controlled with intravenous Ativan MRI, CTAs are unremarkable-MRI showing improvement of the prior edema and also the metastasis Neurologist consulted Keppra doses have been increased to 1500 mg twice daily -- no recurrence of seizure continue Keppra 1500mg BID - stable ARF --initially presented with ARF which subsequently resolved Creatinine has been normalized -- crea 0.5 given IV fluids Nephro on board Hyponatremia and [employer] Branch Service Representative consulted Torsemide resumed -- Na 125 --> 130--> 134--> 136 improved -- Monitor BMP closely Severe bladder distention, bladder outlet obstruction, hydronephrosis -CT abdomen/pelvis: 1. Severe bladder distention. This suggests outlet obstruction. Clinical correlation will be required. 2. Mild bilateral hydroureteronephrosis is likely related to the degree of bladder distention. 3. Advanced emphysema as noted at the lung bases. 4. Patchy groundglass consolidation is seen throughout the lower lobes, likely representing an infectious/inflammatory pneumonitis. Clinical correlation will be required. 5. Trace right pleural effusion. 6. Cholelithiasis and left-sided nephrolithiasis. 7. Additional findings as above. -Kidney function okay -Arguelles catheter placed Urologist consulted resolved continue Arguelles for now Urologist recommends outpatient ff up for further work up and voiding trial Peripheral arterial disease Status post CVA Bilateral lower extremity arterial Doppler showed extensive atherosclerotic plaque within the lower extremities with hemodynamically significant stenosis within the bilateral superficial femoral arteries more severe R>L Appreciate vascular surgery input and recommendation-no intervention at this time HTN Lisinopril discontinued due to borderline low blood pressure COPD Respiratory status stable Hyperlipidemiaon statin Rx DVT prophylaxis Eliquis Full code Discharge Exam General- oriented x 3, not in distress, speaks in sentences with no effort or accessory muscle use Eyes- anicteric Neck- no JVD Lungs- clear breath sounds bilaterally, no crackles, no wheezing Heart- normal rate, regular rhythm; no murmurs Abdomen- normal bowel sounds, nondistended, soft, nontender Extremities- no pretibial edema, no calf tenderness Neuro- alert, oriented x 3; no gross focal neurologic deficits Skin- warm & dry Updated Medication List Medication Instructions Recorded Confirmed Type cholecalciferol (vitamin D3) 25 25 mcg PO DAILY 04/04/22 07/15/22 History mcg (1,000 unit) tablet (Vitamin D3) denosumab 60 mg/mL subcutaneous 60 mg subcut .[id number] 04/04/22 07/15/22 History syringe (Prolia) gabapentin 100 mg capsule 100 mg PO HS 04/04/22 07/15/22 History insulin aspart U-100 100 unit/mL See Rx Instructions .Route .COMPLEX 04/04/22 07/25/22 History (3 mL) subcutaneous pen (Novolog Flexpen U-100 Insulin aspart) levothyroxine 25 mcg tablet 25 mcg PO DAILY 04/04/22 07/15/22 History linagliptin 5 mg tablet (Tradjenta) 5 mg PO QAM 04/04/22 07/15/22 History lorazepam 0.5 mg tablet 0.5 mg PO Q8 PRN Anxiety 04/04/22 07/15/22 History metronidazole 1 % topical gel 1 applic topical BID 04/04/22 07/15/22 History omeprazole 20 mg capsule,delayed 20 mg PO DAILY 04/04/22 07/15/22 History release rosuvastatin 10 mg tablet 10 mg PO HS 04/04/22 07/15/22 History torsemide 20 mg tablet 40 mg PO QAM 04/04/22 07/15/22 History dexamethasone 4 mg tablet 4 mg PO TID #0 tabs 04/09/22 07/15/22 Rx acetaminophen 325 mg tablet 650 mg PO Q6 PRN as directed 07/15/22 07/15/22 History doxycycline hyclate 100 mg capsule 100 mg PO AMHS 07/15/22 07/15/22 History insulin glargine 100 unit/mL (3 13 unit subcut QAM 07/15/22 07/25/22 History mL) subcutaneous pen (Basaglar KwikPen U-100 Insulin) levetiracetam 1,000 mg tablet 1,000 mg PO AMHS 07/15/22 07/15/22 History lisinopril 20 mg tablet 20 mg PO QAM 07/15/22 07/15/22 History mesalamine 1.2 gram tablet,delayed 2.4 g PO QAM 07/15/22 07/15/22 History release apixaban 5 mg tablet (Eliquis) 5 mg PO BID 30 days #60 tabs 07/29/22 Rx dexamethasone 4 mg tablet 4 mg PO BID 30 days #60 tabs 07/29/22 Rx levetiracetam 500 mg tablet 1,500 mg PO AMHS 30 days #90 tabs 07/29/22 Rx (Keppra) potassium chloride 20 mEq 20 meq PO DAILY 30 days #30 tabs 07/29/22 Rx tablet,extended release(part/cryst) torsemide 10 mg tablet 20 mg PO QAM 30 days #60 tabs 07/29/22 Rx Hospital Stay Data Consultations 07/15/22 22:28 ED Decision to Admit Stat 07/16/22 10:04 Consult Podiatry Routine 07/16/22 15:13 Consult Vascular Surgery Routine 07/22/22 19:08 Consult Neurology Routine 07/23/22 08:00 Consult Nephrology Routine 07/27/22 12:27 Consult Urology Routine Diagnostic Imagining Performed Foot X-Ray 07/15/22 21:06 XR foot LT 2V CLINICAL HISTORY: toe pain, infection COMPARISON: None FINDINGS: No acute fracture is identified. Dorsal soft tissue swelling is noted. There is posterior calcaneal spurring. No evidence for acute osteomyelitis by radiography. Mild osteoarthritis is noted within multiple articulations. IMPRESSION: No acute fracture. No radiographic evidence for acute osteomyelitis within the left foot. ACT 112: Negative or not required by law. Electronically signed by: Jordan Conner M.D. 07/16/2022 10:41 AM Chest X-Ray 07/15/22 21:07 XR chest 1V portable CLINICAL HISTORY: Swelling. COMPARISON STUDY: Chest radiograph and chest CT April 04, 2022. FINDINGS: No pneumothorax is present. A trace right pleural effusion is unchanged with associated right basilar opacity. Left basilar opacity favors atelectasis. No consolidation to suggest pneumonia. There is no evidence for pulmonary edema. Postoperative findings within the right shoulder are incidentally noted. IMPRESSION: No acute cardiopulmonary findings. No significant change in ap pearance of the chest. ACT 112: Negative or not required by law. Electronically signed by: Jordan Conner M.D. 07/16/2022 10:32 AM Duplex Scan Lower Extremity Artery 07/16/22 00:39 BILATERAL LOWER EXTREMITY ARTERIAL DOPPLER ULTRASOUND CLINICAL HISTORY: Abnormal ABIs. Toe infection. COMPARISON STUDY: Ankle to brachial indices July 15, 2022. TECHNIQUE: Color and duplex Doppler sonography of the arterial systems of both lower extremity was performed. FINDINGS: Incidental note is made of deep venous thrombus within the right popliteal and peroneal veins. Extensive atherosclerotic plaque is noted within the lower extremities. Triphasic flow within the right common femoral artery is present. Elevated peak systolic velocity of 230 cm second within the proximal right superficial femoral artery is noted. This suggests a moderate to severe stenosis. There is monophasic flow within the mid to distal right superficial femoral artery as well as the right popliteal, posterior tibial, peroneal, anterior tibial and dorsalis pedis vessels. Velocities are diminished within these vessels. Biphasic flow within the left common femoral artery is present. There is an elevated peak systolic velocity 191 cm a second within the proximal left superficial femoral artery which suggests a moderate grade stenosis. Monophasic flow is noted within the left popliteal artery as well as the left calf vessels. Velocities within these vessels are diminished. Waveforms are dampened. IMPRESSION: 1. Extensive atherosclerotic plaque within the lower extremities. Hemodynamically significant stenoses within the bilateral superficial femoral arteries, more severe on the right. 2. Dampened, monophasic flow within the bilateral popliteal arteries and calf vessels, as detailed above. 3. Deep venous thrombus within the right popliteal and peroneal veins. ACT 112: Negative or not required by law. Electronically signed by: Jordan Conner M.D. 07/16/2022 7:31 AM Lumbar Spine X-Ray 07/16/22 15:13 XR lumbar spine 2-3V CLINICAL HISTORY: Low back pain. COMPARISON STUDY: None. FINDINGS: Mild dextroscoliosis of the lumbar spine which may be positional. There are old, healed right-sided rib fractures. The sacrum is intact. Moderate to large amount of well-formed stool seen throughout the colon. Moderate to severe facet degenerative changes within the lumbar spine most pronounced at the L5-S1 level. There are severe disc space narrowing at L3-L4. There is moderate disc space narrowing at L1-L2 and L2-L3, and L4-5. There are endplate osteophytes seen throughout the lumbar spine. No acute fracture or subluxation. IMPRESSION: 1. No fracture or subluxation within the lumbar spine. 2. Degenerative changes as described above. 3. Mild dextroscoliosis which could be positional. ACT 112: Negative or not required by law. Electronically signed by: James Villarreal M.D. 07/16/2022 4:[address] 07/22/22 19:06 CT SCAN OF THE BRAIN WITHOUT IV CONTRAST CLINICAL HISTORY: Seizure. Metastatic disease. COMPARISON STUDY: CT of the brain dated 04/04/2022. MRI of the brain dated 04/05/2022. TECHNIQUE: Unenhanced axial CT scan of the brain is performed from the vertex to the skull base. A dose lowering technique was utilized adhering to the prin ciples of DANIELLERA. CT DOSE: 884.08 mGy.cm FINDINGS: Brain parenchyma: Again seen is slightly hyperdense mass lesion is identified in the right parietal lobe on axial image #19 measuring 2.0 cm and within the left temporal lobe on image #15 measuring 1.0 cm. These demonstrate surrounding edema and are consistent with metastatic disease. The showed gradient signal abnormality on the prior MRI and may be hemorrhagic. The degree of edema around these lesions has significantly improved as compared to 04/04/2022. There is minimal mass effect. No midline shift is seen. No extra-axial fluid collection is identified. There is no evidence of acute territorial ischemia by CT criteria. There is age-related involutional change noting [id number] microangiopathic disease. Ventricles, sulci, cisterns: Prominent secondary to involutional change. Intracranial vasculature: There is atherosclerotic calcification of the cavernous carotid and vertebral arteries. Calvarium: Unremarkable. Sinuses and mastoids: There is trace mucosal thickening within the left maxillary antrum. The paranasal sinuses are otherwise clear. The mastoid air cells are well pneumatized. Orbits: The bony orbits are grossly intact. There are bilateral ocular lens implants. IMPRESSION: 1. Again seen is bilateral intracranial metastatic disease. The lesions are similar in appearance to the 04/04/2022 examination and may be hemorrhagic. 2. The degree of surrounding edema has significantly improved from previous. 3. There is no midline shift or evidence of acute territorial ischemia by CT criteria. ACT 112: Negative or not required by law. Electronically signed by: Tylor Galvan M.D. 07/22/2022 7:33 PM Brain MRI 07/23/22 00:00 Brain MRI WITH AND WITHOUT CONTRAST HISTORY: right hand weakness TECHNIQUE: Multiplanar multisequence MRI of the brain was performed both before and after the intravenous administration of contrast. COMPARISON STUDY: Head CT 07/22/2022. Brain MRI 04/05/2022. FINDINGS: No areas restricted diffusion to suggest an acute infarction. The midline structures are intact. Paranasal sinuses and mastoid air cells are clear. The major vascular flow-voids at the skull base are well-maintained. The ventricles and sulci demonstrate mild age-related involutional changes. No midline shift. Overall, significant improvement of the vasogenic edema surrounding the intracranial metastatic foci compared to the prior brain MRI. There are total of 3 enhancing intracranial metastatic lesions. Dominant lesion within the right posterior parietal lobe measures 1.6 cm and appears to demonstrate chronic hemorrhagic components. This is decreased in size compared to the prior study when it measured 2.2 cm. A left parietal lesion on image 16 has decreased in size and measures 5 mm, previously measuring 9 mm. The left temporal lobe lesion has also decreased in size and measures 8 mm, previously measuring 13 mm. No new intracranial lesions identified. IMPRESSION: 1. No acute infarct. 2. Decrease in size in the intracranial metastatic foci with significant improvement in the surrounding vasogenic edema. Of note, the bilateral parietal lesions demonstrate a chronic hemorrhagic component. ACT 112: Negative or not required by law. Electronically signed by: James Villarreal M.D. 07/23/2022 7:29 AM Head CTA 07/23/22 00:00 HEAD CTA HISTORY: right hand weakness TECHNIQUE: Multiaxial CT images of the head were performed following the intravenous administration of contrast to evaluate the major cerebral vessels. Maximum intensity projection images were also obtained. A dose lowering technique was utilized adhering to the principles of ALARA. COMPARISON: Head CT 07/22/2022. FINDINGS: Redemonstration of the hyperdense 2.3 cm lesion within the right parietal lobe on image 159. There is also a 9 mm hyperdense lesion within the left temporal lobe on image 142. This consistent the patient's known intracranial metastatic disease. The major dural venous sinuses appear patent. Visualized intracranial internal carotid arteries, distal vertebral arteries, and basilar artery are widely patent. There is no significant stenosis, occlusion, or aneurysm seen within the bilateral ACAs, MCAs, or oyster planter. IMPRESSION: 1. No significant stenosis, occlusion, or aneurysm within the [place]. 2. Intracranial metastatic disease again noted. ACT 112: Negative or not required by law. Electronically signed by: James Villarreal M.D. 07/23/2022 7:18 AM Neck CTA 07/23/22 00:00 NECK CTA HISTORY: right hand weakness TECHNIQUE: Multiaxial CT images of the neck were performed following the intravenous administration of contrast to evaluate the major cervical vessels. Maximum intensity projection images were also obtained. All measurements were calculated based on NASCET criteria. A dose lowering technique was utilized adhering to the principles of ALARA. COMPARISON STUDY: Neck CTA 09/11/2020. FINDINGS: The aortic arch and proximal great vessels are widely patent. Emphysema and a few tree-in-bud nodular opacities seen within the left lung. Right apical pleural thickening is again noted. Calcified plaque within the bilateral carotid siphons. This results in up to 50-60% stenosis within the proximal bilateral internal carotid arteries. This remains unchanged. The bilateral vertebral arteries are widely patent. IMPRESSION: 1. No change compared to the prior study. 2. Calcified plaque within the bilateral carotid bifurcations resulting in 50- 60% stenosis within the proximal bilateral internal carotid arteries. 3. The bilateral vertebral arteries are patent. ACT 112: Negative or not required by law. Electronically signed by: James Villarreal M.D. 07/23/2022 7:35 AM Abdomen/Pelvis CT 07/27/22 09:56 CT SCAN OF THE ABDOMEN AND PELVIS WITHOUT IV CONTRAST CLINICAL HISTORY: Generalized abdominal pain. History of metastatic lung cancer. COMPARISON STUDY: Abdominal CT dated 11/12/2021. TECHNIQUE: CT scan of the abdomen and pelvis is performed from the lung bases to the proximal femora. Images are reviewed in the axial, sagittal, and coronal planes. IV contrast was not administered for this examination. Note that the examination is significantly suboptimal without oral and IV contrast. A dose lowering technique was utilized adhering to the principles of ALARA. CT DOSE: 269.12 mGy.cm FINDINGS: Lung bases: The heart is normal in size note trace pericardial effusion. The coronary arteries are densely calcified. A small hiatal hernia is noted. Edematous changes seen at the lung bases. Trace pleural effusion is present on the right with bibasilar scarring/atelectasis. Patchy groundglass changes seen throughout the lower lobes. Liver: The unenhanced liver is normal in size, contour, and attenuation. There is no intrahepatic biliary ductal dilatation. A 1.7 cm cyst is again seen in the left lobe. Gallbladder: There are calcified gallstones without CT evidence of acute cholecystitis. Spleen: Normal in size and attenuation. Pancreas: The unenhanced pancreas is moderately atrophic. Parenchymal calcifications suggest chronic pancreatitis. Adrenal glands: Unremarkable. Kidneys: The unenhanced kidneys are normal in size size. There is mild bilateral hydroureteronephrosis, likely related to marked bladder distention. A 5 mm nonobstructing calculus is in the left lower pole. Numerous simple and complex bilateral renal cysts are similar to previous and measure up to 2.3 cm. Abdominal vasculature: There is advanced atherosclerotic calcification and ectasia of the abdominal aorta. This measures up to 2.8 cm diameter. Ectasia of the right common iliac artery measures up to 1.8 cm. Bowel: There is rectosigmoid fecal retention. No bowel obstruction is seen. The appendix is well-visualized and normal. Peritoneum: There is no intraperitoneal free air or abdominal ascites. Lymphadenopathy: None. Pelvic viscera: The bladder is markedly distended. Prominence of the ovaries and a 3 cm simple cystic lesion in the left ovary are similar to previous. The uterus is normal as visualized. Skeletal structures: The skeletal structures are heterogeneously osteopenic. There is moderate to advanced lumbosacral spondylosis. No lytic or blastic lesions are clearly seen. Soft tissues: There is body wall edema. IMPRESSION: 1. Severe bladder distention. This suggests outlet obstruction. Clinical correlation will be required. 2. Mild bilateral hydroureteronephrosis is likely related to the degree of bladder distention. 3. Advanced emphysema as noted at the lung bases. 4. Patchy groundglass consolidation is seen throughout the lower lobes, likely representing an infectious/inflammatory pneumonitis. Clinical correlation will be required. 5. Trace right pleural effusion. 6. Cholelithiasis and left-sided nephrolithiasis. 7. Additional findings as above. ACT 112: Negative or not required by law. Electronically signed by: Tylor Galvan M.D. 07/27/2022 11:25 AM Pending Results Patient Have Any Pending Studies at Discharge: No Discharge Instructions Given to Patient (Per Discharging Provider) Insulin NovoLog sliding scale as follows: --Goal BSG Range: Low 120 mg/dL, High 160 mg/dL --Correction Factor: 40 mg/dL/unit --Carbohydrate ratio = 10 g/unit --BSGs ACHS if eating, q6h if npo If pt is NPO, do NOT hold correction factor insulin without an order If carb ratio is ordered: --Give before meals based on what the patient plans to eat. --If oral intake is uncertain, may give IMMEDIATELY after food is eaten Please refer to accompanying hospital discharge summary for further details. Total Time Total Time Spent Total Time Spent (In Minutes): > 30 minutes
== END 2022-07-29 13:10 | DRG 637 ==
LOC: 3E 16:49 → ED 16:49 → 3E 07-16 04:44 → SUATTDRO 07-16 15:54 → 2E 07-22 21:50 → 3N 07-28 17:54